=== PATIENT | male | born 1955 | race Caucasian/White ===

== ENCOUNTER 2018-03-14 19:44 | Emergency (ER) | payer OTHER ==
[~2018-03-14 19:44] MED LIST: ACET-1311 PO; ASPI-320 PO; ATOR-24 PO; BISA1SUP4 RE; CLOP1TAB15 PO; GABA-113 PO; HYDCR1CL TOP; INSDGIPEN SC; MOML PO; NVLG SQ; NYST80OI TOP; OXYC-90 PO; POLY335019 PO; SODIENE PR
[2018-03-14 19:50] VITALS: TEMP 36.8; Ht 182.9 cm
[2018-03-14] MEDS ORDERED: INSDGIPEN SC (20:13)
--- NOTE | 2018-03-14 20:43 | DIAGNOSTIC IMAGING REPORT ---
R SHOULDER MIN 2 VIEWS ROUTINE CLINICAL HISTORY: Right shoulder pain status post trauma COMPARISON: None. DISCUSSION: No fractures or dislocations are visualized. Degenerative changes are present within the acromioclavicular joint and glenohumeral joint. There is slight narrowing and humeral acromial distance. This could indicate rotator cuff tear degeneration. IMPRESSION: 1. No acute fractures 2. Degenerative changes Electronically signed by: Herve Pastrana M.D. 03/14/2018 8:42 PM Dictated Date/Time: 03/14/2018 8:41 PM
--- NOTE | 2018-03-14 20:51 | EMERGENCY ROOM VISIT NOTE ---
ED Visit Note First contact with patient: 19:53 Staff note: I have reviewed the Patients chart and have discussed this case with my PA. I generally agree with the ED note and findings.
--- NOTE | 2018-03-14 20:54 | EMERGENCY ROOM VISIT NOTE ---
ED Visit Note First contact with patient: 19:53 CHIEF COMPLAINT: Right shoulder injury HISTORY OF PRESENT ILLNESS: This 62-year-old male presents to ER with chief complaint of right shoulder injury. The patient is a above the knee amputation on the left side. The patient ambulates at home in a chair. He went to the refrigerator to get something out of the freezer and pulled himself up and lost his balance and fell backwards and landed on his right shoulder. The patient did not hit his head. He denies a loss of consciousness. The patient states it hurts to move his arm. He denies any pain radiating down the arm or any numbness and tingling in his fingers. The patient is right-hand dominant. The patient has seen Dr. Rooney in the past for knee replacements. REVIEW OF SYSTEMS: 6 system review was performed and was negative unless stated otherwise in history of present illness. PMH: The patient is healthy; type 2 diabetes not well controlled. 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 Right knee replacement, dyslipidemia SOCIAL HISTORY: Patient admits to tobacco use . PHYSICAL EXAM: Vital Signs: Were reviewed reviewed nurse's notes. GENERAL: 62- year-old white male appears in no acute distress. He is sitting in a wheelchair with his left lower leg amputated. MENTAL alert and oriented 3. RIGHT SHOULDER: The shoulder is slightly swollen but not deformed on inspection. Patient is tender to palpation over the humeral head. The range of motion is limited in all directions because of the pain. There is no tenderness of the distal clavicle. [facility] strength is 5 out of 5 as compared to the left. EMERGENCY DEPARTMENT COURSE: The patient was evaluated. The patient had already taken oxycodone before coming to the emergency room therefore no additional pain medication was given. X-ray of the right shoulder was ordered interpreted by the radiologist and myself. DIAGNOSTICS:R SHOULDER MIN 2 VIEWS ROUTINE CLINICAL HISTORY: Right shoulder pain status post trauma COMPARISON: None. DISCUSSION: No fractures or dislocations are visualized. Degenerative changes are present within the acromioclavicular joint and glenohumeral joint. There is slight narrowing and humeral acromial distance. This could indicate rotator cuff tear degeneration. IMPRESSION: 1. No acute fractures 2. Degenerative changes Electronically signed by: Herve Pastrana M.D. 03/14/2018 8:42 PM The patient was informed of the findings. The patient was independently evaluated by Dr. Johnson who agreed with treatment plan. The patient was placed in an arm sling and discharged home in stable condition. DIAGNOSIS: Right shoulder contusion DISCHARGE INSTRUCTIONS & TREATMENT: Rest the arm in a sling until the pain subsides. Apply ice to the shoulder intermittently and frequently over the next 24 hours. Tylenol and/or ibuprofen as needed for pain. see your own doctor or an orthopedic surgeon if you don't seem to be improving in 1 week. 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 Surgical Problems: (1) History of spinal fusion Permanent Comment: 05/[address] Reeder Status: Resolved Current/Historical Medications Scheduled Aspirin (Aspirin EC Low Dose), 81 MG PO DAILY Atorvastatin (Lipitor), 40 MG PO HS Clopidogrel (Plavix), 75 MG PO DAILY Gabapentin (Neurontin), 300 MG PO BID Insulin Aspart (Novolog), 1 DOSE SQ UD Insulin Glargine (Lantus Solostar), 54 UNITS SC DAILY Scheduled PRN Oxycodone Ir (Roxicodone Ir), 5-10 MG PO Q4H PRN for Severe Pain Allergies Coded Allergies: No Known Allergies (Verified , 03/14/18) Vital Signs Date Time Temp Pulse Resp B/P (MAP) Pulse Ox O2 Delivery O2 Flow Rate FiO2 03/14/18 19:50 36.8 77 18 163/75 94 Room Air Departure Information Referrals Zion Moses M.D. (PCP) Patient Instructions My [facility]
[2018-03-14 21:02] VITALS: BP 160/69; PULSE 78; O2SAT 98
== END 2018-03-14 21:00 | disposition home or self-care (01) ==
LOC: C.EDB 19:46 → C.EDD 21:00
DX: S40.011A Contusion of right shoulder, initial encounter (principal); W07.XXXA Fall from chair, initial encounter; Y92.010 Kitchen of single-family (private) house as the place of occurrence of the external cause; Z89.612 Acquired absence of left leg above knee; Z72.0 Tobacco use; E11.9 Type 2 diabetes mellitus without complications; E78.5 Hyperlipidemia, unspecified; K21.9 Gastro-esophageal reflux disease without esophagitis; Z86.73 Personal history of transient ischemic attack (TIA), and cerebral infarction without residual deficits; Z79.82 Long term (current) use of aspirin; Z79.02 Long term (current) use of antithrombotics/antiplatelets; Z79.4 Long term (current) use of insulin; Z79.899 Other long term (current) drug therapy

== ENCOUNTER 2020-02-25 14:58 | Inpatient (IN) ==
[2020-02-25] MEDS ORDERED: GLUCAGON FOR INJ 1 MG VIAL SQ PRN (15:30)
[2020-02-25] MEDS ORDERED: ALUMINUM/MAGNESIUM SUSP 30 ML UDC PO PRN (15:30)
[2020-02-25] MEDS ORDERED: ONDANSETRON INJ 2 MG/ML 2 ML VIAL IV PRN (15:30)
[2020-02-25] MEDS ORDERED: GLUCOSE 10 TABS/TUBE PO PRN (15:30)
[2020-02-25] MEDS ORDERED: GLUCOSE 40% GEL 15 GM TUBE PO PRN (15:30)
[2020-02-25] MEDS ORDERED: CARBOHYDRATES FOR HYPOGLYCEMIA PO PRN (15:30)
[2020-02-25] MEDS ORDERED: POLYETHYLENE (MIRALAX) 17 GM PACK PO PRN (15:30)
[2020-02-25] MEDS ORDERED: MAGNESIUM HYDROXIDE SUSP 30 ML UDC PO PRN (15:30)
[2020-02-25] MEDS ORDERED: ACETAMINOPHEN 325 MG TAB PO PRN (15:30)
[2020-02-25] MEDS ORDERED: DEXTROSE 50% 50 ML SYRINGE IV PRN (15:30)
[2020-02-25] MEDS ORDERED: PHARMACY GLYCEMIC MGMT CONSULT PRN (15:37)
[2020-02-25 16:48] LABS: Basophils # (auto) 0.05 K/uL (0-0.2); Basophils % (auto) 0.4 %; Eosinophils # (auto) 0.23 K/uL (0-0.5); Hematocrit (blood only) 45.1 % (42-52); Hemoglobin 15.5 g/dL (14.0-18.0); Immature Granulocytes # (auto) 0.04 K/uL (0.00-0.02); Immature Granulocytes % (auto) 0.3 %; Lymphocytes # (auto) 3.63 K/uL (1.2-3.4); Lymphocytes % (auto) 30.9 %; Mean Corpuscular Hemoglobin 32.5 pg (25-34); Mean Corpuscular Hgb Conc 34.4 g/dL (32-36); Mean Corpuscular Volume 94.5 fL (80-100); Mean Platelet Volume 9.7 fL (7.4-10.4); Monocytes # (auto) 0.94 K/uL (0.11-0.59); Neutrophils # (auto) 6.85 K/uL (1.4-6.5); Neutrophils % (auto) 58.4 %; Platelet Count 301 K/uL (130-400); RDW Coefficient of Variation 14.6 % (11.5-14.5); RDW Standard Deviation 50.2 fL (36.4-46.3); Red Blood Count 4.77 M/uL (4.7-6.1); White Blood Count 11.74 K/uL (4.8-10.8)
--- NOTE | 2020-02-25 16:57 | History & Physical Report ---
Date of Service February 25, 2020 Assessment & Plan (1) Right BKA infection: Has had right BKA in the last week of October 2019 John were removed about 3 weeks ago noted to have wound dehiscence Has been under care of wound care since then Has been taking doxycycline for MSSA infection and will be continued Patient is here for irrigation wound VAC placement We will consult wound care provider and wound care nurse (2) Surgical wound, non healing: As above (3) DM type 2 (diabetes mellitus, type 2): Has type 2 diabetes on insulin We will hold oral diabetic medications and continue with SSI Has diabetic complications with neuropathy, retinopathy and is complicated by peripheral vascular disease (4) Diabetic peripheral angiopathy: (5) Peripheral vascular disease: (6) Carotid artery disease: History of CVA without any residual (7) GERD (gastroesophageal reflux disease): Continue PPI (8) Emphysema of lung: Chronic smoker and continues to smoke Has emphysema of the lung No acute exacerbation of COPD We will continue his current medications DVT prophylaxis Heparin subcu CODE STATUS Full Admission and Anticipated Discharge Date Admission Date: February 25, 2020 History of Present Illness Chief Complaint: Nonhealing right BKA stump Primary Care Provider: Zion angelo MD Is a 64 years old obese male with significant past medical history of type 2 diabetes with peripheral neuropathy and peripheral vascular disease, GERD, history of CVA, carotid artery disease, hyperlipidemia has been sent from wound clinic for wound VAC irrigation of the right BKA stump. He underwent right BKA for diabetic neuropathy and peripheral vascular disease and last week of October in [place]. His john were taken out from the wound about 3 weeks ago and following that the wound showed dehiscence and has been under care of wound clinic as an outpatient. The wound has not been healing and today he was sent in to the hospital for application of irrigation with wound VAC to improve the wound healing. He has been on oral doxycycline for wound infection for the last 3 days which will be continued. He denies symptoms of fever, chills, any chest pain and/or palpitation, any abdominal pain, nausea or vomiting, any increasing redness, swelling, tenderness or drainage from the wound. Allergies Allergy/AdvReac Type Severity Reaction Status Date / Time No Known Allergies Allergy Verified 02/25/20 13:42 Home Medications Home Medications Medication Instructions Recorded Confirmed Type Aspirin (Aspirin EC Low Dose) 81 mg PO DAILY #0 07/02/16 02/25/20 History Clopidogrel (Plavix) 75 mg PO DAILY #0 12/30/17 02/25/20 History Insulin Aspart (NOVOLOG) 1 dose SUBCUT UD #0 12/30/17 02/25/20 History Insulin Glargine (Lantus Solostar) 60 unit SC DAILY #0 pen 03/14/18 02/25/20 History collagenase clostridium histo. 250 1 applic TOP DAILY 14 Days #90 gm 02/04/20 02/25/20 Rx unit/gram topical ointment Gabapentin (Neurontin) 300 mg PO TID #0 02/18/20 02/25/20 History doxycycline hyclate 100 mg tablet 100 mg PO bid 14 Days #28 tab 02/22/20 02/25/20 Rx Past Med/Surg History Medical History (Updated 02/25/20 @ 16:52 by Aleksander Gerardo MD) Carotid artery disease S/P right CEA by Dr. Sheppard on 09/14/17. L Occluded carotid artery Diabetic neuropathy Diabetic peripheral angiopathy DM type 2 (diabetes mellitus, type 2) (Chronic) Dyslipidemia (Chronic) Emphysema of lung GERD (gastroesophageal reflux disease) (Chronic) History of CVA (cerebrovascular accident) (Chronic) H/O right basal ganglia stroke in 2011. PAD (peripheral artery disease) Peripheral vascular disease (Chronic) Tobacco dependence (Chronic) Surgical History (Updated 02/25/20 @ 14:28 by Catherine Goodwin PA-C) History of angioplasty of peripheral vessel L LEG left popliteal artery angioplasty and stent as left AT/peroneal/TP trunk angioplasty on 05/10/[address] Sheppard left AKA on 12/19/17 09/27/17 for angioplasty/stent of the left SFA, but noted to have a BK- popliteal occlusion (would need a left fem=>AT bypass). left common femoral endarterectomy with vein patch angioplasty and common femoral artery => anterior tibial artery bypass using non-reversed left great saphenous vein 10/20/2017. R LEG RSFA stent and, angioplasty of PT/peroneal artery 06/06/[address] Mosqueda S/P right TOMMIE/TP-trunk/peroneral/PT angioplasty by Dr. Mosqueda on 10/25/18. 02/2019 again prompted additional intervention He underwent bilateral common & external iliac artery stents (one 7 x 80 mm Everflex stent on each side) and right SFA/pop/TP-trunk angioplasty by Dr. Sheppard 04/03/19. 05/09/20 He underwent balloon angioplasty of right SFA/popliteal/TP-trunk/peroneral arteries and open amputation of the R 5th toe by Dr. Shepprad on 08/10/19. History of femoropopliteal bypass History of right below knee amputation by Dr. Sheppard History of spinal fusion (Resolved) "05/[address] Reeder" Hx of AKA (above knee amputation) L 12/2018 Social History (Updated 02/04/20 @ 14:17 by Joe Roldan RN) Smoking Status: Current every day smoker Tobacco Type: Cigarettes packs per day: 1; Do You Dip or Chew Tobacco: No; Tobacco Cessation Education Requested by Patient: No Hx Alcohol Use: Yes Alcohol type: beer Alcohol Intake Frequency: 2-4 x/Month Hx Substance Use: No Preferred Language: Lithuanian Communication Ability: Effective Solution Lead Required: No Beliefs That Will Affect Care: None marital status: Current Living Situation: Spouse current occupational status: retired Other Information That Helps Us Care for You: No Feels Safe at Home: Yes Safety Concerns: Feels Safe At This Time Review of Systems Review of Systems: All systems reviewed & are unremarkable except as noted in HPI & below Physical Exam Physical Exam: Sitting in a chair without any distress Constitutional: well developed, well nourished and + obese; no acute distress and not ill appearing Eyes: PERRL, conjunctivae normal, anicteric sclerae ENMT: external ear and nose normal, oropharynx normal Neck: trachea midline, no thyromegaly Respiratory: normal respiratory effort; no respiratory distress Auscultation: lungs clear to auscultation bilaterally Cardiovascular: Rate/Rhythm: regular rhythm Heart Sounds: no murmur Extremities: + edema (Trace edema bilaterally) Gastrointestinal (Abdomen): Inspection/Auscultation: abdomen normal to inspection and normal bowel sounds; abdomen not distended Percussion/Palpation: abdomen soft; abdomen nontender Musculoskeletal: Has left AKA without any infection. Right BKA has wound dehiscence for the last 3 weeks or so. Neurologic: Alert, awake and oriented x3 Results & Data Results & Data ([facility]) Vital Signs (Past 12 Hours) Vital Signs Temp Pulse Resp BP Pulse Ox 02/25/20 16:15 36.4 C L 78 16 125/65 94 Code Status & VTE Plan Code Status Full code VTE Prophylaxis Plan VTE Prophylaxis will be ordered: Yes
[2020-02-25 17:00] LABS: Partial Thromboplastin Ratio 1.1; Partial Thromboplastin Time 31.1 Seconds (21.0-31.0); Prothrombin Time 10.8 Seconds (9.0-12.0)
--- NOTE | 2020-02-25 17:03 | XRay Report ---
XR chest 1V portable CLINICAL HISTORY: Atypical chest pain COMPARISON STUDY: 12/30/2017 FINDINGS: The heart is mildly enlarged. There is mild interstitial prominence similar to the prior st udy. There is no overt failure. There is no lobar consolidation. There are no pleural effusions.[ IMPRESSION: No active disease in the chest. ACT 112: Negative or not required by law. Electronically signed by: Herve Pastrana M.D. 02/25/2020 5:02 PM
[2020-02-25 17:08] LABS: Albumin Level 3.1 gm/dl (3.4-5.0); BUN Creatinine Ratio 24.9 (10-20); C Reactive Protein 2.5 mg/dl (0-0.29); Creatinine Clr Calc Pharmacy 83.8 ml/min; Est GFR (African American) 84.3; Est GFR (Non-African American) 72.8; Magnesium 2.1 mg/dl (1.8-2.4); Potassium 4.1 mmol/L (3.5-5.1)
[2020-02-25 17:11] LABS: Albumin Globulin Ratio 0.7 (0.9-2); Bilirubin,Total 0.5 mg/dl (0.2-1); Globulin 4.7 gm/dl (2.5-4.0); Total Protein 7.8 gm/dl (6.4-8.2)
[2020-02-25] MEDS: INSULIN ASPART 100 UNITS/ML 3 ML PEN SC SCH ×2 (17:11→20:39)
[2020-02-25] MEDS: OXYCODONE/ACETAMINOPHEN 5mg/325mg TAB PO PRN ×2 (18:07→22:49)
[2020-02-25] MEDS: DOXYCYCLINE HYCLATE 100 MG CAP PO SCH (20:42)
[2020-02-25] MEDS: GABAPENTIN 300 MG CAP PO SCH (20:42)
[2020-02-25] MEDS ORDERED: INSULIN ASPART 100 UNITS/ML 3 ML PEN SC SCH (21:00)
[2020-02-25] MEDS: HEPARIN SOD 5,000 UNIT/0.5 ML VIAL SQ SCH (21:07)
[2020-02-26] MEDS: OXYCODONE/ACETAMINOPHEN 5mg/325mg TAB PO PRN ×3 (03:18→20:25)
[2020-02-26] MEDS ORDERED: HYDROmorphone INJ 0.5 MG/0.5 ML SYR IV STA ×3 (04:03→12:39)
[2020-02-26] MEDS: HEPARIN SOD 5,000 UNIT/0.5 ML VIAL SQ SCH ×3 (06:24→21:31)
[2020-02-26 07:08] LABS: Estimated Average Glucose 240 mg/dl
[2020-02-26] MEDS: CLOPIDOGREL BISULFATE 75 MG TAB PO SCH (08:03)
[2020-02-26] MEDS: COLLAGENASE OINT 30 GM TUBE TOP SCH (08:04)
[2020-02-26] MEDS: GABAPENTIN 300 MG CAP PO SCH ×3 (08:04→20:25)
[2020-02-26] MEDS: ASPIRIN 81 MG ECTAB PO SCH (08:04)
[2020-02-26] MEDS: DOXYCYCLINE HYCLATE 100 MG CAP PO SCH ×2 (08:04→20:25)
[2020-02-26] MEDS: INSULIN ASPART 100 UNITS/ML 3 ML PEN SC SCH ×4 (08:06→20:27)
[2020-02-26] MEDS ORDERED: INSULIN GLARGINE SOLOSTAR 100 UNITS/ML 3 ML PEN SC SCH ×2 (09:00)
--- NOTE | 2020-02-26 11:18 | Pharmacy Report ---
Glycemic Control Consultation - Date of Service February 26, 2020 - Scope Scope: Glycemic Pharmacist consulted for glycemic control and to write orders per [facility] inpatient glycemic control protocol. - Objective Weight: 99.3 kg Accuchecks BSG (last 24hrs): 02/25/20 02/25/20 02/25/20 16:16 16:38 20:06 Glucose 166 H POC Glucose 153 H 162 H 02/26/20 07:30 Glucose POC Glucose 106 H Laboratory Data (last 24hrs): 02/25/20 16:16 Potassium 4.1 Carbon Dioxide 25 Anion Gap 6.0 Creatinine 1.06 Est Cr Clr Drug Dosing 83.8 HbA1c: Hemoglobin A1c 10.0 % (4.5-5.6) H 02/26/20 06:46 - Recent Pertinent Medications Outpatient Anti-diabetic Regimen: * Lantus 60 units Qam, Novolog scale * A1c = 10 % 02/26/20 Risk Factors for Insulin Resistance: * Diet - Assessment & Plan Assessment & Plan: ASSESSMENT: * 64 year old admitted with possible infection. PMHx significant for type 2 diabetes, peripheral neuropathy, PVD, GERD, CVA, hld. Sent from wound clinic for wound VAC irrigation of the right BKA stump. * Pharmacy consulted for glycemic management. Fasting BSG 106 mg/dL - plan to scale back basal insulin this AM / add novolog scale PLAN FOR INPATIENT GLYCEMIC CONTROL: * Basal insulin * Lantus 40 units daily * Bolus insulin * NovoLog per scale ACHS or Q6hrs while NPO * Goal Range: Low 110 mg/dL - High 140 mg/dL * Correction Factor: 18 mg/dL/unit * Nutritional / Prandial insulin per carb ratio of 1 unit per 6 grams CHO consumed * Please note that the plan above was derived based on current level of insulin resistance and hospital stress. These recommendations are appropriate for inpatient admission only. Plan of care upon discharge will need to be reassessed to avoid potential outpatient hypo/hyperglycemia. Thank you.
[2020-02-26] MEDS ORDERED: HYDROmorphone INJ 0.5 MG/0.5 ML SYR ONE (11:43)
--- NOTE | 2020-02-26 14:56 | Hospitalist Progress Note ---
Date of Service February 26, 2020 Assessment & Plan (1) Right BKA infection: Has had right BKA in the last week of October 2019 John were removed about 3 weeks ago noted to have wound dehiscence Has been under care of wound care since then Has been taking doxycycline for staph aureus MRSA infection since 02/18/2020 and will be continued Patient is here for irrigation wound VAC placement Appreciate wound care provider input and recommendation Irrigation wound VAC has been applied The patient complains of severe pain with the wound VAC in place His pain medications have been increased He may need pain therapy consult if the pain is not controlled with a reasonable dose of pain medications (2) Surgical wound, non healing: As above (3) DM type 2 (diabetes mellitus, type 2): Has type 2 diabetes on insulin We will hold oral diabetic medications and continue with SSI Has diabetic complications with neuropathy, retinopathy and is complicated by peripheral vascular disease Appreciate development educator input and recommendation Hemoglobin A1c is 10.0 on 02/26/2020 (4) Diabetic peripheral angiopathy: (5) Peripheral vascular disease: (6) Carotid artery disease: History of CVA without any residual (7) GERD (gastroesophageal reflux disease): Continue PPI (8) Emphysema of lung: Chronic smoker and continues to smoke Has emphysema of the lung No acute exacerbation of COPD We will continue his current medications DVT prophylaxis Heparin subcu CODE STATUS Full Admission and Anticipated Discharge Date Admission Date: February 25, 2020 Subjective 02/26/2020 The patient was seen and examined in medical floor. He has been complaining of severe pain involving the right BKA stump wound The pain is worse when the wound VAC has been applied and persisted thereafter Denies any other symptoms Review of Systems Review of Systems: All systems reviewed and are unremarkable except as noted below Musculoskeletal: Severe pain at the right BKA stump wound Physical Exam Physical Exam: Sitting in a chair without any distress Constitutional: well developed, well nourished and + obese; no acute distress and not ill appearing Eyes: PERRL, conjunctivae normal, anicteric sclerae ENMT: external ear and nose normal, oropharynx normal Neck: trachea midline, no thyromegaly Respiratory: normal respiratory effort; no respiratory distress Auscultation: lungs clear to auscultation bilaterally Cardiovascular: Rate/Rhythm: regular rhythm Heart Sounds: no murmur Right BKA stump has mild edema Gastrointestinal (Abdomen): Inspection/Auscultation: abdomen normal to inspection and normal bowel sounds; abdomen not distended Percussion/Palpation: abdomen soft; abdomen nontender Results & Data Results & Data ([facility]) Vital Signs (Past 12 Hours) Vital Signs Temp Pulse Resp BP Pulse Ox 02/26/20 12:00 36.8 C 84 18 124/65 94 02/26/20 07:48 36.7 C 78 18 123/72 94 02/26/20 04:13 36.6 C 77 20 127/84 95 Laboratory Results Short CBC 02/25/20 Range/Units 16:16 WBC 11.74 H (4.8-10.8) K/uL Hgb 15.5 (14.0-18.0) g/dL Hct 45.1 (42-52) % Plt Count 301 (130-400) K/uL BMP 02/25/20 16:16 Sodium 135 L Potassium 4.1 Chloride 104 Carbon Dioxide 25 BUN 26 H Creatinine 1.06 Glucose 166 H Calcium 10.0 Liver Function 02/25/20 Range/Units 16:16 Total Bilirubin 0.5 (0.2-1) mg/dl AST 18 (15-37) U/L ALT 25 (12-78) U/L Alkaline Phosphatase 89 (45-117) U/L Albumin 3.1 L (3.4-5.0) gm/dl Medications Administered Current Inpatient Medications Acetaminophen (Tylenol) 650 mg PO Q4H PRN PRN Reason: Pain or Fever Stop: 03/26/20 15:29 Al Hydrox/Mg Hydrox/Simethicone (Maalox) 15 ml PO Q4H PRN PRN Reason: Dyspepsia Stop: 03/26/20 15:29 Aspirin (Ecotrin Ectab) 81 mg PO DAILY VANDANA Stop: 03/27/20 08:59 Last Admin: 02/26/20 08:04 Dose: Not Given Documented by: Clopidogrel Bisulfate (Plavix) 75 mg PO DAILY [facility] Stop: 03/27/20 08:59 Last Admin: 02/26/20 08:03 Dose: 75 mg Documented by: Collagenase (Santyl) 1 appln TOP DAILY VANDANA Stop: 03/27/20 08:59 Last Admin: 02/26/20 08:04 Dose: 1 appln Documented by: Dextrose (Dextrose 50%) 25 - 50 ml IV UD PRN; Protocol PRN Reason: Hypoglycemia Protocol Stop: 03/26/20 15:29 Doxycycline Hyclate (Vibramycin) 100 mg PO BID [facility] Stop: 03/03/20 20:59 Last Admin: 02/26/20 08:04 Dose: 100 mg Documented by: Gabapentin (Neurontin) 300 mg PO TID [facility] Stop: 03/26/20 20:59 Last Admin: 02/26/20 13:46 Dose: 300 mg Documented by: Glucagon (Glucagen) 1 mg SQ UD PRN; Protocol PRN Reason: Hypoglycemia Protocol Stop: 03/26/20 15:29 Glucose (Dex4 Glucose) 4 - 8 tabs PO UD PRN; Protocol PRN Reason: Hypoglycemia Protocol Stop: 03/26/20 15:29 Glucose (Glucose 40%) 15 - 30 gm PO UD PRN; Protocol PRN Reason: Hypoglycemia Protocol Stop: 03/26/20 15:29 Heparin Sodium (Porcine) (Heparin Sodium (Porcine)) 5,000 units SQ Q8 [facility] Stop: 03/26/20 21:59 Last Admin: 02/26/20 13:46 Dose: 5,000 units Documented by: Hydromorphone HCl (Dilaudid) 1 mg IV Q4H PRN PRN Reason: Moderate Pain Stop: 03/11/20 13:57 Insulin Aspart (Novolog Flexpen) 0 units SC [facility] Stop: 03/26/20 16:29 Last Admin: 02/26/20 12:08 Dose: 9 units Documented by: Insulin Glargine (Lantus Solostar Pen) 0 units SC [facility]; Protocol Stop: 03/27/20 08:59 Last Admin: 02/26/20 08:50 Dose: 40 units Documented by: Magnesium Hydroxide (Milk Of Magnesia) 30 ml PO Q12H PRN PRN Reason: Constipation Stop: 03/26/20 15:29 Miscellaneous (Carbohydrates For Hypoglycemia) 15 - 30 gm PO UD PRN PRN Reason: Hypoglycemia Protocol Stop: 03/26/20 15:29 Miscellaneous Information (Consult Glycemic Management Pharmacy) 1 ea N/A UD PRN; Protocol PRN Reason: Consult Stop: 03/26/20 15:36 Ondansetron HCl (Zofran) 4 mg IV Q6H PRN PRN Reason: Nausea Stop: 03/26/20 15:29 Oxycodone/Acetaminophen (Percocet 5mg/325mg) 2 tab PO Q6H PRN PRN Reason: Pain Stop: 03/10/20 17:53 Polyethylene Glycol (Miralax Powder Packet) 17 gm PO DAILY PRN PRN Reason: Constipation Stop: 03/26/20 15:29
--- NOTE | 2020-02-26 15:30 | Wound Consultation ---
Date of Consultation February 26, 2020 Assessment & Plan (1) Right BKA infection: Patient with nonhealing right BKA wound. No debridement was done. We will apply irrigating wound VAC. This will be changed after 4 days. Continue with antibiotics. Recommend scheduled pain meds as patient will likely be unable to tolerate wound VAC otherwise. Low threshold for repeat imaging to rule out spread of infection. Thank you for limited to spent in the care of this patient. Please call with any questions. (2) Surgical wound, non healing: History of Present Illness Reason for Consultation: Right BKA infection Attending Physician: Aleksander Gerardo MD History of Present Illness This is a 64-year-old male with a history of type 2 diabetes, CVA, GERD, dyslipidemia, sepsis and tobacco abuse who is being treated the wound clinic for nonhealing right BKA stump. Patient was sent to the hospital yesterday from the wound clinic due to the increase pain and possible worsening infection. We made little outpatient progress and patient likely would benefit from an irrigating wound VAC and possible IV antibiotics in addition to pain control. Allergies Allergy/AdvReac Type Severity Reaction Status Date / Time No Known Allergies Allergy Verified 02/25/20 13:42 Home Medications Home Medications Medication Instructions Recorded Confirmed Type Aspirin (Aspirin EC Low Dose) 81 mg PO DAILY #0 07/02/16 02/25/20 History Clopidogrel (Plavix) 75 mg PO DAILY #0 12/30/17 02/25/20 History Insulin Aspart (NOVOLOG) 1 dose SUBCUT UD #0 12/30/17 02/25/20 History Insulin Glargine (Lantus Solostar) 60 unit SC DAILY #0 pen 03/14/18 02/25/20 History collagenase clostridium histo. 250 1 applic TOP DAILY 14 Days #90 gm 02/04/20 02/25/20 Rx unit/gram topical ointment Gabapentin (Neurontin) 300 mg PO TID #0 02/18/20 02/25/20 History doxycycline hyclate 100 mg tablet 100 mg PO bid 14 Days #28 tab 02/22/20 02/25/20 Rx Patient History Medical History Carotid artery disease S/P right CEA by Dr. Sheppard on 09/14/17. L Occluded carotid artery Diabetic neuropathy Diabetic peripheral angiopathy DM type 2 (diabetes mellitus, type 2) (Chronic) Dyslipidemia (Chronic) Emphysema of lung GERD (gastroesophageal reflux disease) (Chronic) History of CVA (cerebrovascular accident) (Chronic) H/O right basal ganglia stroke in 2012. PAD (peripheral artery disease) Peripheral vascular disease (Chronic) Tobacco dependence (Chronic) Surgical History History of angioplasty of peripheral vessel L LEG left popliteal artery angioplasty and stent as left AT/peroneal/TP trunk angioplasty on 05/10/[address] Sheppard left AKA on 12/19/17 09/27/17 for angioplasty/stent of the left SFA, but noted to have a BK- popliteal occlusion (would need a left fem=>AT bypass). left common femoral endarterectomy with vein patch angioplasty and common femoral artery => anterior tibial artery bypass using non-reversed left great saphenous vein 10/20/2017. R LEG RSFA stent and, angioplasty of PT/peroneal artery 06/06/[address] Mosqueda S/P right TOMMIE/TP-trunk/peroneral/PT angioplasty by Dr. Mosqueda on 10/25/18. 02/2019 again prompted additional intervention He underwent bilateral common & external iliac artery stents (one 7 x 80 mm Everflex stent on each side) and right SFA/pop/TP-trunk angioplasty by Dr. Sheppard 04/03/19. 05/09/20 He underwent balloon angioplasty of right SFA/popliteal/TP-trunk/peroneral arteries and open amputation of the R 5th toe by Dr. Sheppard on 08/10/19. History of femoropopliteal bypass History of right below knee amputation by Dr. Sheppard History of spinal fusion (Resolved) "05/[address] Reeder" Hx of AKA (above knee amputation) L 12/2018 Social History Smoking Status: Current every day smoker Tobacco Type: Cigarettes packs per day: 1; Do You Dip or Chew Tobacco: No; Tobacco Cessation Education Requested by Patient: No Hx Alcohol Use: Yes Alcohol type: beer Alcohol Intake Frequency: 2-4 x/Month Hx Substance Use: No Preferred Language: Italian Communication Ability: Effective Diamond Cleaner Required: No Beliefs That Will Affect Care: None marital status: Current Living Situation: Spouse current occupational status: retired Other Information That Helps Us Care for You: No Feels Safe at Home: Yes Safety Concerns: Feels Safe At This Time Review of Systems Review of Systems: All systems reviewed & are unremarkable except as noted in HPI & below Physical Exam Physical Exam: Temp Pulse Resp BP Pulse Ox 36.8 C 78 18 124/65 94 02/26/20 12:00 02/26/20 15:02 02/26/20 12:00 02/26/20 12:00 02/26/20 12:00 Constitutional: WD/WN, vitals as above Eyes: PERRL, conjunctivae normal, anicteric sclerae Skin: Wound measuring as recorded in nursing documentation. Wounds are covered with fibrin and slough. Periwound is erythematous. Wound beds are very tender to palpation. Neurologic: awake; not confused Psychiatric: A+Ox3, euthymic affect Results & Data Vital Signs (Past 12 Hours) Vital Signs Temp Pulse Pulse Resp BP Pulse Ox 02/26/20 15:02 78 02/26/20 12:00 36.8 C 84 18 124/65 94 02/26/20 07:48 36.7 C 78 18 123/72 94 02/26/20 04:13 36.6 C 77 20 127/84 95 Laboratory Results 02/26/20 02/26/20 02/26/20 Range/Units 11:55 07:30 06:46 WBC (4.8-10.8) K/uL RBC (4.7-6.1) M/uL Hgb (14.0-18.0) g/dL Hct (42-52) % MCV (80-100) fL MCH (25-34) pg MCHC (32-36) g/dL RDW Std Deviation (36.4-46.3) fL RDW Coeff of Martin (11.5-14.5) % Plt Count (130-400) K/uL MPV (7.4-10.4) fL Immature Gran % (Auto) % Neut % (Auto) % Lymph % (Auto) % Hall % (Auto) % Eos % (Auto) % Baso % (Auto) % Neut # (Auto) (1.4-6.5) K/uL Lymph # (Auto) (1.2-3.4) K/uL Hall # (Auto) (0.11-0.59) K/uL Eos # (Auto) (0-0.5) K/uL Baso # (Auto) (0-0.2) K/uL Immature Gran # (Auto) (0.00-0.02) K/uL ESR (0-14) mm/hr PT (9.0-12.0) Seconds INR (0.9-1.1) APTT (21.0-31.0) Seconds PTT Ratio Sodium (136-145) mmol/L Potassium (3.5-5.1) mmol/L Chloride (98-107) mmol/L Carbon Dioxide (21-32) mmol/L Anion Gap (3-11) BUN (7-18) mg/dl Creatinine (0.6-1.4) mg/dl Est Cr Clr Drug Dosing ml/min Est GFR ( Amer) Est GFR (Non-Af Amer) BUN/Creatinine Ratio (10-20) Glucose (70-99) mg/dl POC Glucose 106 H 106 H (70-99) mg/dl Estimat Average Glucose 240 mg/dl Hemoglobin A1c 10.0 H (4.5-5.6) % Lactate (0.4-2.0) mmol/L Calcium (8.5-10.1) mg/dl Magnesium (1.8-2.4) mg/dl Total Bilirubin (0.2-1) mg/dl AST (15-37) U/L ALT (12-78) U/L Alkaline Phosphatase (45-117) U/L C-Reactive Protein (0-0.29) mg/dl Total Protein (6.4-8.2) gm/dl Albumin (3.4-5.0) gm/dl Globulin (2.5-4.0) gm/dl Albumin/Globulin Ratio (0.9-2) 02/25/20 02/25/20 02/25/20 Range/Units 20:06 16:38 16:36 WBC (4.8-10.8) K/uL RBC (4.7-6.1) M/uL Hgb (14.0-18.0) g/dL Hct (42-52) % MCV (80-100) fL MCH (25-34) pg MCHC (32-36) g/dL RDW Std Deviation (36.4-46.3) fL RDW Coeff of Martin (11.5-14.5) % Plt Count (130-400) K/uL MPV (7.4-10.4) fL Immature Gran % (Auto) % Neut % (Auto) % Lymph % (Auto) % Hall % (Auto) % Eos % (Auto) % Baso % (Auto) % Neut # (Auto) (1.4-6.5) K/uL Lymph # (Auto) (1.2-3.4) K/uL Hall # (Auto) (0.11-0.59) K/uL Eos # (Auto) (0-0.5) K/uL Baso # (Auto) (0-0.2) K/uL Immature Gran # (Auto) (0.00-0.02) K/uL ESR (0-14) mm/hr PT (9.0-12.0) Seconds INR (0.9-1.1) APTT (21.0-31.0) Seconds PTT Ratio Sodium (136-145) mmol/L Potassium (3.5-5.1) mmol/L Chloride (98-107) mmol/L Carbon Dioxide (21-32) mmol/L Anion Gap (3-11) BUN (7-18) mg/dl Creatinine (0.6-1.4) mg/dl Est Cr Clr Drug Dosing ml/min Est GFR ( Amer) Est GFR (Non-Af Amer) BUN/Creatinine Ratio (10-20) Glucose (70-99) mg/dl POC Glucose 162 H 153 H (70-99) mg/dl Estimat Average Glucose mg/dl Hemoglobin A1c (4.5-5.6) % Lactate 1.3 (0.4-2.0) mmol/L Calcium (8.5-10.1) mg/dl Magnesium (1.8-2.4) mg/dl Total Bilirubin (0.2-1) mg/dl AST (15-37) U/L ALT (12-78) U/L Alkaline Phosphatase (45-117) U/L C-Reactive Protein (0-0.29) mg/dl Total Protein (6.4-8.2) gm/dl Albumin (3.4-5.0) gm/dl Globulin (2.5-4.0) gm/dl Albumin/Globulin Ratio (0.9-2) 02/25/20 02/25/20 02/25/20 Range/Units 16:16 16:16 16:16 WBC (4.8-10.8) K/uL RBC (4.7-6.1) M/uL Hgb (14.0-18.0) g/dL Hct (42-52) % MCV (80-100) fL MCH (25-34) pg MCHC (32-36) g/dL RDW Std Deviation (36.4-46.3) fL RDW Coeff of Martin (11.5-14.5) % Plt Count (130-400) K/uL MPV (7.4-10.4) fL Immature Gran % (Auto) % Neut % (Auto) % Lymph % (Auto) % Hall % (Auto) % Eos % (Auto) % Baso % (Auto) % Neut # (Auto) (1.4-6.5) K/uL Lymph # (Auto) (1.2-3.4) K/uL Hall # (Auto) (0.11-0.59) K/uL Eos # (Auto) (0-0.5) K/uL Baso # (Auto) (0-0.2) K/uL Immature Gran # (Auto) (0.00-0.02) K/uL ESR 52 H (0-14) mm/hr PT 10.8 (9.0-12.0) Seconds INR 1.0 (0.9-1.1) APTT 31.1 H (21.0-31.0) Seconds PTT Ratio 1.1 Sodium 135 L (136-145) mmol/L Potassium 4.1 (3.5-5.1) mmol/L Chloride 104 (98-107) mmol/L Carbon Dioxide 25 (21-32) mmol/L Anion Gap 6.0 (3-11) BUN 26 H (7-18) mg/dl Creatinine 1.06 (0.6-1.4) mg/dl Est Cr Clr Drug Dosing 83.8 ml/min Est GFR ( Amer) 84.3 Est GFR (Non-Af Amer) 72.8 BUN/Creatinine Ratio 24.9 H (10-20) Glucose 166 H (70-99) mg/dl POC Glucose (70-99) mg/dl Estimat Average Glucose mg/dl Hemoglobin A1c (4.5-5.6) % Lactate (0.4-2.0) mmol/L Calcium 10.0 (8.5-10.1) mg/dl Magnesium 2.1 (1.8-2.4) mg/dl Total Bilirubin 0.5 (0.2-1) mg/dl AST 18 (15-37) U/L ALT 25 (12-78) U/L Alkaline Phosphatase 89 (45-117) U/L C-Reactive Protein 2.50 H (0-0.29) mg/dl Total Protein 7.8 (6.4-8.2) gm/dl Albumin 3.1 L (3.4-5.0) gm/dl Globulin 4.7 H (2.5-4.0) gm/dl Albumin/Globulin Ratio 0.7 L (0.9-2) 02/25/20 Range/Units 16:16 WBC 11.74 H (4.8-10.8) K/uL RBC 4.77 (4.7-6.1) M/uL Hgb 15.5 (14.0-18.0) g/dL Hct 45.1 (42-52) % MCV 94.5 (80-100) fL MCH 32.5 (25-34) pg MCHC 34.4 (32-36) g/dL RDW Std Deviation 50.2 H (36.4-46.3) fL RDW Coeff of Martin 14.6 H (11.5-14.5) % Plt Count 301 (130-400) K/uL MPV 9.7 (7.4-10.4) fL Immature Gran % (Auto) 0.3 % Neut % (Auto) 58.4 % Lymph % (Auto) 30.9 % Hall % (Auto) 8.0 % Eos % (Auto) 2.0 % Baso % (Auto) 0.4 % Neut # (Auto) 6.85 H (1.4-6.5) K/uL Lymph # (Auto) 3.63 H (1.2-3.4) K/uL Hall # (Auto) 0.94 H (0.11-0.59) K/uL Eos # (Auto) 0.23 (0-0.5) K/uL Baso # (Auto) 0.05 (0-0.2) K/uL Immature Gran # (Auto) 0.04 H (0.00-0.02) K/uL ESR (0-14) mm/hr PT (9.0-12.0) Seconds INR (0.9-1.1) APTT (21.0-31.0) Seconds PTT Ratio Sodium (136-145) mmol/L Potassium (3.5-5.1) mmol/L Chloride (98-107) mmol/L Carbon Dioxide (21-32) mmol/L Anion Gap (3-11) BUN (7-18) mg/dl Creatinine (0.6-1.4) mg/dl Est Cr Clr Drug Dosing ml/min Est GFR ( Amer) Est GFR (Non-Af Amer) BUN/Creatinine Ratio (10-20) Glucose (70-99) mg/dl POC Glucose (70-99) mg/dl Estimat Average Glucose mg/dl Hemoglobin A1c (4.5-5.6) % Lactate (0.4-2.0) mmol/L Calcium (8.5-10.1) mg/dl Magnesium (1.8-2.4) mg/dl Total Bilirubin (0.2-1) mg/dl AST (15-37) U/L ALT (12-78) U/L Alkaline Phosphatase (45-117) U/L C-Reactive Protein (0-0.29) mg/dl Total Protein (6.4-8.2) gm/dl Albumin (3.4-5.0) gm/dl Globulin (2.5-4.0) gm/dl Albumin/Globulin Ratio (0.9-2) PG Care Time/CCT Total # of Minutes Spent Total Time Spent with Patient: Total time spent is greater than 50% in coordination of care (as documented) at patient's floor/unit and/or counseling patient: Coding Level of Care Code 19497 Inpt Consult Level 3 Diagnoses 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 Surgical wound, non healing T81.89XA
[2020-02-26] MEDS: HYDROmorphone INJ 1 MG/ML SYRINGE IV PRN ×2 (16:22→23:28)
[2020-02-27] MEDS: HEPARIN SOD 5,000 UNIT/0.5 ML VIAL SQ SCH ×3 (05:30→21:30)
[2020-02-27] MEDS: HYDROmorphone INJ 1 MG/ML SYRINGE IV PRN ×3 (07:12→23:54)
[2020-02-27] MEDS: GABAPENTIN 300 MG CAP PO SCH ×3 (08:39→21:28)
[2020-02-27] MEDS: DOXYCYCLINE HYCLATE 100 MG CAP PO SCH ×2 (08:39→21:29)
[2020-02-27] MEDS: ASPIRIN 81 MG ECTAB PO SCH (08:39)
[2020-02-27] MEDS: CLOPIDOGREL BISULFATE 75 MG TAB PO SCH (08:40)
[2020-02-27] MEDS: OXYCODONE/ACETAMINOPHEN 5mg/325mg TAB PO PRN ×2 (08:45→19:12)
[2020-02-27] MEDS: INSULIN ASPART 100 UNITS/ML 3 ML PEN SC SCH ×4 (08:45→21:29)
[2020-02-27] MEDS: COLLAGENASE OINT 30 GM TUBE TOP SCH (09:00)
[2020-02-27] MEDS: INSULIN GLARGINE SOLOSTAR 100 UNITS/ML 3 ML PEN SC SCH (12:41)
--- NOTE | 2020-02-27 13:53 | Pharmacy Report ---
Pharmacy Glycemic Short Note 2 - Date of Service February 27, 2020 - Glycemic Short BSG Results (Last 24 hours): 02/26/20 02/26/20 02/27/20 16:52 20:23 07:25 POC Glucose 73 91 72 02/27/20 11:41 POC Glucose 133 H ASSESSMENT: 02/26 * Patient received total of 62 units of insulin this AM, of which 40 were basal insulin * Fasting BSG 72 mg/dL - held AM basal, restarted at lunch - decreased dosing due to lower fasting and limited po intake * Loosened CF/CR as BSGs trending down yesterday PLAN FOR INPATIENT GLYCEMIC CONTROL: * Basal insulin - decrease * Lantus 20 units daily * Bolus insulin * NovoLog per scale ACHS or Q6hrs while NPO * Goal Range: Low 110 mg/dL - High 140 mg/dL * Correction Factor: 25 mg/dL/unit * Nutritional / Prandial insulin per carb ratio of 1 unit per 9 grams CHO consumed PLAN FOR DISCHARGE: * A1C elevated at 10% on admission * DM educator in to also see patient. Confirmed insulin dosing with patient. Patient reports SMBG 3-4x /day with BSGs ranging from 110s-160s and occasionally over 200 mg/dL. DM educator suggested CGM to patient. Many factors can affect A1c and alter level making inaccurate. * During hospital stay BSGs have been well controlled and insulin needs actually are less. Would be reasonable to continue home diabetic regimen as long as patient continues with SMBG and follows up with provider if BSGs out of range.
--- NOTE | 2020-02-27 15:36 | Hospitalist Progress Note ---
Date of Service February 27, 2020 Assessment & Plan (1) Right BKA infection: Has had right BKA in the last week of October 2019 John were removed about 3 weeks ago noted to have wound dehiscence Has been under care of wound care since then Has been taking doxycycline for staph aureus MRSA infection since 02/18/2020 and will be continued Patient is here for irrigation wound VAC placement Appreciate wound care provider input and recommendation Irrigation wound VAC has been applied The patient complained of severe pain with the wound VAC in place, now better controlled His pain medications have been increased (2) Surgical wound, non healing: As above (3) DM type 2 (diabetes mellitus, type 2): Has type 2 diabetes on insulin We will hold oral diabetic medications and continue with SSI Has diabetic complications with neuropathy, retinopathy and is complicated by peripheral vascular disease Appreciate cosmetology educator input and recommendation Hemoglobin A1c is 10.0 on 02/26/2020, however blood sugar level while in the hospital acceptable Likely no changes on discharge regarding his diabetic regimen, close follow-up with PCP (4) Diabetic peripheral angiopathy: (5) Peripheral vascular disease: (6) Carotid artery disease: History of CVA without any residual (7) GERD (gastroesophageal reflux disease): Continue PPI (8) Emphysema of lung: Chronic smoker and continues to smoke Has emphysema of the lung No acute exacerbation of COPD We will continue his current medications Will provide nicotine patch DVT prophylaxis Heparin subcu CODE STATUS Full Admission and Anticipated Discharge Date Admission Date: February 25, 2020 Subjective Patient is sitting up in bed, in no acute distress, previously he has been complaining of severe pain involving the right BKA stump wound The pain is worse when the wound VAC has been applied and persisted thereafter Denies any other symptoms Patient denies any fevers, chills, chest pain, shortness of breath, abdominal pain, nausea or vomiting. Says that he eats well. Patient seen by healthcare educator, blood sugar levels in the hospital are acceptable, A1c is however elevated, and will need to be monitored. Review of Systems Review of Systems: All systems reviewed & are unremarkable except as noted in HPI & below All systems reviewed and are unremarkable except as noted below Constitutional: no fever and no chills Respiratory: no cough and no dyspnea Cardiovascular: no chest pain and no palpitations Gastrointestinal: no abdominal pain and no vomiting Physical Exam Physical Exam: Physical Exam: Sitting in a chair without any distress Constitutional: well developed, well nourished and + obese; no acute distress and not ill appearing Eyes: PERRL, conjunctivae normal, anicteric sclerae ENMT: external ear and nose normal, oropharynx normal Neck: trachea midline, no thyromegaly Respiratory: normal respiratory effort; no respiratory distress Auscultation: lungs clear to auscultation bilaterally, no wheezing, rhonchi or crackles noted Cardiovascular: Rate/Rhythm: regular rhythm Heart Sounds: no murmur Right BKA stump with irrigating wound VAC placed Gastrointestinal (Abdomen): Inspection/Auscultation: abdomen normal to inspection and normal bowel sounds; abdomen not distended Percussion/Palpation: abdomen soft; abdomen nontender Results & Data Results & Data ([facility]) Vital Signs (Past 12 Hours) Vital Signs Temp Pulse Pulse Resp BP BP Pulse Ox 02/27/20 11:36 37.0 C 72 18 138/72 96 02/27/20 07:03 36.7 C 75 19 143/73 H 93 02/27/20 07:00 78 02/27/20 04:57 36.8 C 79 18 134/76 93 Laboratory Results 02/27/20 02/27/20 02/26/20 Range/Units 11:41 07:25 20:23 POC Glucose 133 H 72 91 (70-99) mg/dl 02/26/20 Range/Units 16:52 POC Glucose 73 (70-99) mg/dl Medications Administered Current Inpatient Medications Acetaminophen (Tylenol) 650 mg PO Q4H PRN PRN Reason: Pain or Fever Stop: 03/26/20 15:29 Al Hydrox/Mg Hydrox/Simethicone (Maalox) 15 ml PO Q4H PRN PRN Reason: Dyspepsia Stop: 03/26/20 15:29 Aspirin (Ecotrin Ectab) 81 mg PO DAILY [facility] Stop: 03/27/20 08:59 Last Admin: 02/27/20 08:39 Dose: 81 mg Documented by: Clopidogrel Bisulfate (Plavix) 75 mg PO DAILY [facility] Stop: 03/27/20 08:59 Last Admin: 02/27/20 08:40 Dose: 75 mg Documented by: Dextrose (Dextrose 50%) 25 - 50 ml IV UD PRN; Protocol PRN Reason: Hypoglycemia Protocol Stop: 03/26/20 15:29 Doxycycline Hyclate (Vibramycin) 100 mg PO BID [facility] Stop: 03/03/20 20:59 Last Admin: 02/27/20 08:39 Dose: 100 mg Documented by: Gabapentin (Neurontin) 300 mg PO TID [facility] Stop: 03/26/20 20:59 Last Admin: 02/27/20 14:25 Dose: 300 mg Documented by: Glucagon (Glucagen) 1 mg SQ UD PRN; Protocol PRN Reason: Hypoglycemia Protocol Stop: 03/26/20 15:29 Glucose (Dex4 Glucose) 4 - 8 tabs PO UD PRN; Protocol PRN Reason: Hypoglycemia Protocol Stop: 03/26/20 15:29 Glucose (Glucose 40%) 15 - 30 gm PO UD PRN; Protocol PRN Reason: Hypoglycemia Protocol Stop: 03/26/20 15:29 Heparin Sodium (Porcine) (Heparin Sodium (Porcine)) 5,000 units SQ Q8 [facility] Stop: 03/26/20 21:59 Last Admin: 02/27/20 14:25 Dose: 5,000 units Documented by: Hydromorphone HCl (Hydromorphone Inj 1 Mg/Ml Syringe) 1 mg IV Q4H PRN PRN Reason: Moderate Pain Stop: 03/11/20 13:57 Last Admin: 02/27/20 07:12 Dose: 1 mg Documented by: Insulin Aspart (Insulin Aspart 100 Units/Ml 3 Ml Pen) 0 units SC ACHS [facility] Stop: 03/26/20 16:29 Last Admin: 02/27/20 11:59 Dose: 6 units Documented by: Insulin Glargine (Insulin Glargine Solostar 100 Units/Ml 3 Ml Pen) 20 units SC [facility]; Protocol Stop: 03/28/20 12:44 Last Admin: 02/27/20 12:41 Dose: 20 units Documented by: Magnesium Hydroxide (Milk Of Magnesia) 30 ml PO Q12H PRN PRN Reason: Constipation Stop: 03/26/20 15:29 Miscellaneous (Carbohydrates For Hypoglycemia) 15 - 30 gm PO UD PRN PRN Reason: Hypoglycemia Protocol Stop: 03/26/20 15:29 Miscellaneous (Remove Nicoderm Patch) 1 ea N/A DAILY@[id number] [facility] Stop: 03/29/20 08:58 Miscellaneous Information (Consult Glycemic Management Pharmacy) 1 ea N/A UD PRN; Protocol PRN Reason: Consult Stop: 03/26/20 15:36 Nicotine (Nicotine 14 Mg/24 Hr Patch) 14 mg TD QAM VANDANA Stop: 03/28/20 15:44 Ondansetron HCl (Zofran) 4 mg IV Q6H PRN PRN Reason: Nausea Stop: 03/26/20 15:29 Oxycodone/Acetaminophen (Oxycodone/Acetaminophen 5mg/325mg Tab) 2 tab PO Q6H PRN PRN Reason: Pain Stop: 03/10/20 17:53 Last Admin: 02/27/20 08:45 Dose: 2 tab Documented by: Polyethylene Glycol (Miralax Powder Packet) 17 gm PO DAILY PRN PRN Reason: Constipation Stop: 03/26/20 15:29
[2020-02-27] MEDS: NICOTINE 14 MG/24 HR PATCH TD SCH (18:19)
--- NOTE | 2020-02-27 23:47 | Electrocardiogram Report ---
Test Reason : Blood Pressure : / mmHG Vent. Rate : 074 BPM Atrial Rate : 074 BPM P-R Int : 220 ms QRS Dur : 100 ms QT Int : 372 ms P-R-T Axes : 059 052 136 degrees QTc Int : 412 ms Sinus rhythm with 1st degree A-V block Abnormal ECG When compared with ECG of 30-DEC-2017 16:43, Vent. rate has decreased BY 43 BPM QRS duration has increased T wave inversion now evident in Lateral leads Confirmed by Elmer Fairchild ([id number]) on 02/27/2020 11:46:58 PM Referred By: Ingrid Teran Confirmed By:Elmer Fairchild
[2020-02-28] MEDS: HEPARIN SOD 5,000 UNIT/0.5 ML VIAL SQ SCH ×3 (05:03→21:34)
[2020-02-28] MEDS: OXYCODONE/ACETAMINOPHEN 5mg/325mg TAB PO PRN ×2 (05:03→20:31)
[2020-02-28 07:11] LABS: Hematocrit (blood only) 41.1 % (42-52); Mean Corpuscular Hemoglobin 32.4 pg (25-34); Mean Corpuscular Hgb Conc 34.1 g/dL (32-36); Mean Corpuscular Volume 95.1 fL (80-100); Mean Platelet Volume 9.5 fL (7.4-10.4); Platelet Count 242 K/uL (130-400); RDW Coefficient of Variation 14.6 % (11.5-14.5); RDW Standard Deviation 50.7 fL (36.4-46.3); Red Blood Count 4.32 M/uL (4.7-6.1); White Blood Count 10.98 K/uL (4.8-10.8)
[2020-02-28 07:47] LABS: BUN Creatinine Ratio 19.2 (10-20); Calcium 8.7 mg/dl (8.5-10.1); Creatinine Clr Calc Pharmacy 87.1 ml/min; Est GFR (African American) 89.4; Est GFR (Non-African American) 77.1; Magnesium 2.2 mg/dl (1.8-2.4); Phosphorus 2.9 mg/dl (2.5-4.9); Potassium 3.9 mmol/L (3.5-5.1)
[2020-02-28] MEDS: GABAPENTIN 300 MG CAP PO SCH ×3 (08:23→21:34)
[2020-02-28] MEDS: DOXYCYCLINE HYCLATE 100 MG CAP PO SCH (08:23)
[2020-02-28] MEDS: ASPIRIN 81 MG ECTAB PO SCH (08:23)
[2020-02-28] MEDS: NICOTINE 14 MG/24 HR PATCH TD SCH (08:24)
[2020-02-28] MEDS: CLOPIDOGREL BISULFATE 75 MG TAB PO SCH (08:25)
[2020-02-28] MEDS: INSULIN GLARGINE SOLOSTAR 100 UNITS/ML 3 ML PEN SC SCH (08:30)
[2020-02-28] MEDS: INSULIN ASPART 100 UNITS/ML 3 ML PEN SC SCH ×4 (08:31→21:35)
[2020-02-28] MEDS ORDERED: DOXYCYCLINE HYCLATE 100 MG CAP PO SCH (09:56)
--- NOTE | 2020-02-28 10:00 | Hospitalist Progress Note ---
Date of Service February 28, 2020 Assessment & Plan (1) Right BKA infection: Has had right BKA in the last week of October 2019 John were removed about 3 weeks ago noted to have wound dehiscence Has been under care of wound care since then Has been taking doxycycline for staph aureus MRSA infection since 02/18/2020 and this was continued Patient is here for irrigation wound VAC placement Appreciate wound care provider input and recommendation Irrigation wound VAC has been applied The patient complained of severe pain with the wound VAC in place, now better controlled His pain medications have been increased (2) Surgical wound, non healing: As above (3) DM type 2 (diabetes mellitus, type 2): Has type 2 diabetes on insulin We will hold oral diabetic medications and continue with SSI Has diabetic complications with neuropathy, retinopathy and is complicated by peripheral vascular disease Appreciate clinical trial educator input and recommendation Hemoglobin A1c is 10.0 on 02/26/2020, however blood sugar level while in the hospital acceptable Likely no changes on discharge regarding his diabetic regimen, close follow-up with PCP (4) Diabetic peripheral angiopathy: (5) Peripheral vascular disease: (6) Carotid artery disease: History of CVA without any residual (7) GERD (gastroesophageal reflux disease): Continue PPI (8) Emphysema of lung: Chronic smoker and continues to smoke Has emphysema of the lung No acute exacerbation of COPD We will continue his current medications Will provide nicotine patch DVT prophylaxis Heparin subcu CODE STATUS Full Admission and Anticipated Discharge Date Admission Date: February 25, 2020 Subjective Patient is sitting up in bed, in no acute distress, previously he has been complaining of severe pain involving the right BKA stump wound. Now pain seems to be well controlled. Patient denies any fevers, chills, chest pain, shortness of breath, abdominal pain, nausea or vomiting. Says that he eats well. Patient seen by clinical trial educator, blood sugar levels in the hospital are acceptable, A1c is however elevated, and will need to be monitored. Smoking cessation counseling, nicotine patch started yesterday. Review of Systems Review of Systems: All systems reviewed & are unremarkable except as noted in HPI & below Constitutional: no fever and no chills Respiratory: no cough and no dyspnea Cardiovascular: no chest pain and no palpitations Gastrointestinal: no abdominal pain, no nausea and no vomiting Physical Exam Physical Exam: Physical Exam: Sitting in a chair without any distress Constitutional: well developed, well nourished and + obese; no acute distress and not ill appearing Eyes: PERRL, conjunctivae normal, anicteric sclerae ENMT: external ear and nose normal, oropharynx normal Neck: trachea midline, no thyromegaly Respiratory: normal respiratory effort; no respiratory distress Auscultation: lungs clear to auscultation bilaterally, no wheezing, rhonchi or crackles noted Cardiovascular: Rate/Rhythm: regular rhythm Heart Sounds: no murmur Right BKA stump with irrigating wound VAC placed Gastrointestinal (Abdomen): Inspection/Auscultation: abdomen normal to inspection and normal bowel sounds; abdomen not distended Percussion/Palpation: abdomen soft; abdomen nontender Results & Data Results & Data ([facility]) Vital Signs (Past 12 Hours) Vital Signs Temp Pulse Pulse Resp BP Pulse Ox 02/28/20 07:32 77 02/28/20 07:09 36.9 C 77 19 147/79 H 94 02/28/20 02:55 37.4 C 83 16 145/74 H 90 02/27/20 23:00 36.7 C 77 83 16 147/73 H 90 Laboratory Results 02/28/20 02/28/20 02/28/20 Range/Units 07:36 06:48 06:48 WBC 10.98 H (4.8-10.8) K/uL RBC 4.32 L (4.7-6.1) M/uL Hgb 14.0 (14.0-18.0) g/dL Hct 41.1 L (42-52) % MCV 95.1 (80-100) fL MCH 32.4 (25-34) pg MCHC 34.1 (32-36) g/dL RDW Std Deviation 50.7 H (36.4-46.3) fL RDW Coeff of Martin 14.6 H (11.5-14.5) % Plt Count 242 (130-400) K/uL MPV 9.5 (7.4-10.4) fL Sodium 138 (136-145) mmol/L Potassium 3.9 (3.5-5.1) mmol/L Chloride 108 H (98-107) mmol/L Carbon Dioxide 25 (21-32) mmol/L Anion Gap 5.0 (3-11) BUN 19 H (7-18) mg/dl Creatinine 1.01 (0.6-1.4) mg/dl Est Cr Clr Drug Dosing 87.1 ml/min Est GFR ( Amer) 89.4 Est GFR (Non-Af Amer) 77.1 BUN/Creatinine Ratio 19.2 (10-20) Glucose 70 (70-99) mg/dl POC Glucose 77 (70-99) mg/dl Calcium 8.7 (8.5-10.1) mg/dl Phosphorus 2.9 (2.5-4.9) mg/dl Magnesium 2.2 (1.8-2.4) mg/dl 02/27/20 02/27/20 02/27/20 Range/Units 20:33 16:31 11:41 WBC (4.8-10.8) K/uL RBC (4.7-6.1) M/uL Hgb (14.0-18.0) g/dL Hct (42-52) % MCV (80-100) fL MCH (25-34) pg MCHC (32-36) g/dL RDW Std Deviation (36.4-46.3) fL RDW Coeff of Martin (11.5-14.5) % Plt Count (130-400) K/uL MPV (7.4-10.4) fL Sodium (136-145) mmol/L Potassium (3.5-5.1) mmol/L Chloride (98-107) mmol/L Carbon Dioxide (21-32) mmol/L Anion Gap (3-11) BUN (7-18) mg/dl Creatinine (0.6-1.4) mg/dl Est Cr Clr Drug Dosing ml/min Est GFR ( Amer) Est GFR (Non-Af Amer) BUN/Creatinine Ratio (10-20) Glucose (70-99) mg/dl POC Glucose 145 H 129 H 133 H (70-99) mg/dl Calcium (8.5-10.1) mg/dl Phosphorus (2.5-4.9) mg/dl Magnesium (1.8-2.4) mg/dl Medications Administered Current Inpatient Medications Acetaminophen (Tylenol) 650 mg PO Q4H PRN PRN Reason: Pain or Fever Stop: 03/26/20 15:29 Al Hydrox/Mg Hydrox/Simethicone (Maalox) 15 ml PO Q4H PRN PRN Reason: Dyspepsia Stop: 03/26/20 15:29 Aspirin (Ecotrin Ectab) 81 mg PO DAILY [facility] Stop: 03/27/20 08:59 Last Admin: 02/28/20 08:23 Dose: 81 mg Documented by: Clopidogrel Bisulfate (Plavix) 75 mg PO DAILY [facility] Stop: 03/27/20 08:59 Last Admin: 02/28/20 08:25 Dose: 75 mg Documented by: Dextrose (Dextrose 50%) 25 - 50 ml IV UD PRN; Protocol PRN Reason: Hypoglycemia Protocol Stop: 03/26/20 15:29 Doxycycline Hyclate (Doxycycline Hyclate 100 Mg Cap) 100 mg PO BID [facility] Stop: 03/03/20 20:59 Gabapentin (Neurontin) 300 mg PO TID [facility] Stop: 03/26/20 20:59 Last Admin: 02/28/20 08:23 Dose: 300 mg Documented by: Glucagon (Glucagen) 1 mg SQ UD PRN; Protocol PRN Reason: Hypoglycemia Protocol Stop: 03/26/20 15:29 Glucose (Dex4 Glucose) 4 - 8 tabs PO UD PRN; Protocol PRN Reason: Hypoglycemia Protocol Stop: 03/26/20 15:29 Glucose (Glucose 40%) 15 - 30 gm PO UD PRN; Protocol PRN Reason: Hypoglycemia Protocol Stop: 03/26/20 15:29 Heparin Sodium (Porcine) (Heparin Sodium (Porcine)) 5,000 units SQ Q8 [facility] Stop: 03/26/20 21:59 Last Admin: 02/28/20 05:03 Dose: 5,000 units Documented by: Hydromorphone HCl (Hydromorphone Inj 1 Mg/Ml Syringe) 1 mg IV Q4H PRN PRN Reason: Moderate Pain Stop: 03/11/20 13:57 Last Admin: 02/27/20 23:54 Dose: 1 mg Documented by: Doxycycline Hyclate 100 mg/ (Dextrose) 110 mls @ 50 mls/hr IV Q12H [facility] Stop: 03/06/20 09:59 Insulin Aspart (Insulin Aspart 100 Units/Ml 3 Ml Pen) 0 units SC ACHS [facility] Stop: 03/26/20 16:29 Last Admin: 02/28/20 08:31 Dose: 2 units Documented by: Insulin Glargine (Insulin Glargine Solostar 100 Units/Ml 3 Ml Pen) [facility] [place] Protocol Stop: 03/28/20 12:44 Last Admin: 02/28/20 08:30 Dose: 20 units Documented by: Magnesium Hydroxide (Milk Of Magnesia) 30 ml PO Q12H PRN PRN Reason: Constipation Stop: 03/26/20 15:29 Miscellaneous (Carbohydrates For Hypoglycemia) 15 - 30 gm PO UD PRN PRN Reason: Hypoglycemia Protocol Stop: 03/26/20 15:29 Miscellaneous (Remove Nicoderm Patch) 1 ea N/A DAILY@0859 [facility] Stop: 03/28/20 15:44 Last Admin: 02/28/20 08:24 Dose: 1 ea Documented by: Miscellaneous Information (Consult Glycemic Management Pharmacy) 1 ea N/A UD PRN; Protocol PRN Reason: Consult Stop: 03/26/20 15:36 Nicotine (Nicotine 14 Mg/24 Hr Patch) 14 mg TD [facility] Stop: 03/28/20 15:44 Last Admin: 02/28/20 08:24 Dose: 14 mg Documented by: Ondansetron HCl (Zofran) 4 mg IV Q6H PRN PRN Reason: Nausea Stop: 03/26/20 15:29 Oxycodone/Acetaminophen (Oxycodone/Acetaminophen 5mg/325mg Tab) 2 tab PO Q6H PRN PRN Reason: Pain Stop: 03/10/20 17:53 Last Admin: 02/28/20 05:03 Dose: 2 tab Documented by: Polyethylene Glycol (Miralax Powder Packet) 17 gm PO DAILY PRN PRN Reason: Constipation Stop: 03/26/20 15:29
[2020-02-28] MEDS: HYDROmorphone INJ 1 MG/ML SYRINGE IV PRN ×2 (10:28→16:46)
[2020-02-28] MEDS: POLYETHYLENE (MIRALAX) 17 GM PACK PO SCH (12:48)
[2020-02-28] MEDS: DOXYCYCLINE HYCLATE 100 MG in DEXTROSE 5% 100 ML IV SCH (21:34)
[2020-02-29] MEDS: HYDROmorphone INJ 1 MG/ML SYRINGE IV PRN ×3 (00:07→11:03)
[2020-02-29] MEDS: HEPARIN SOD 5,000 UNIT/0.5 ML VIAL SQ SCH ×2 (05:24→15:05)
[2020-02-29 07:02] LABS: Hematocrit (blood only) 43.4 % (42-52); Hemoglobin 14.7 g/dL (14.0-18.0); Mean Corpuscular Hemoglobin 32.1 pg (25-34); Mean Corpuscular Hgb Conc 33.9 g/dL (32-36); Mean Corpuscular Volume 94.8 fL (80-100); Mean Platelet Volume 9.5 fL (7.4-10.4); Platelet Count 268 K/uL (130-400); RDW Coefficient of Variation 14.5 % (11.5-14.5); RDW Standard Deviation 50.2 fL (36.4-46.3); Red Blood Count 4.58 M/uL (4.7-6.1); White Blood Count 10.66 K/uL (4.8-10.8)
[2020-02-29 07:34] LABS: Calcium 8.7 mg/dl (8.5-10.1); Creatinine Clr Calc Pharmacy 87.2 ml/min; Est GFR (African American) 90.5; Est GFR (Non-African American) 78.1; Magnesium 2.2 mg/dl (1.8-2.4)
[2020-02-29] MEDS: OXYCODONE/ACETAMINOPHEN 5mg/325mg TAB PO PRN ×2 (07:34→16:58)
[2020-02-29] MEDS: NICOTINE 14 MG/24 HR PATCH TD SCH (07:35)
[2020-02-29] MEDS: CLOPIDOGREL BISULFATE 75 MG TAB PO SCH (07:36)
[2020-02-29] MEDS: GABAPENTIN 300 MG CAP PO SCH ×2 (07:36→15:05)
[2020-02-29 07:37] LABS: Phosphorus 2.9 mg/dl (2.5-4.9)
[2020-02-29] MEDS: POLYETHYLENE (MIRALAX) 17 GM PACK PO SCH (07:37)
[2020-02-29] MEDS: ASPIRIN 81 MG ECTAB PO SCH (07:37)
[2020-02-29] MEDS: INSULIN ASPART 100 UNITS/ML 3 ML PEN SC SCH ×3 (08:18→16:59)
[2020-02-29] MEDS: INSULIN GLARGINE SOLOSTAR 100 UNITS/ML 3 ML PEN SC SCH (08:18)
[2020-02-29] MEDS: DOXYCYCLINE HYCLATE 100 MG in DEXTROSE 5% 100 ML IV SCH (08:19)
[2020-02-29] MEDS ORDERED: DAPTOMYCIN CONSULT ACTIVE PRN (09:18)
--- NOTE | 2020-02-29 09:19 | Hospitalist Progress Note ---
Date of Service February 29, 2020 Assessment & Plan (1) Right BKA infection: Has had right BKA in the last week of October 2019 John were removed about 3 weeks ago noted to have wound dehiscence Has been under care of wound care since then Has been taking doxycycline for staph aureus MRSA infection since 02/18/2020 and this was continued Patient is here for irrigation wound VAC placement Appreciate wound care provider input and recommendation Irrigation wound VAC has been applied The patient complained of severe pain with the wound VAC in place, now better controlled His pain medications have been increased ESR and CRP however continues to be elevated. With blood cell count essentially unchanged at 10,000. Discussed with wound care team, will obtain MRI of right lower extremity to evaluate for possible abscess or osteomyelitis We will also broaden IV antibiotics (2) Surgical wound, non healing: As above (3) DM type 2 (diabetes mellitus, type 2): Has type 2 diabetes on insulin We will hold oral diabetic medications and continue with SSI Has diabetic complications with neuropathy, retinopathy and is complicated by peripheral vascular disease Appreciate religious educator input and recommendation Hemoglobin A1c is 10.0 on 02/26/2020, however blood sugar level while in the hospital acceptable Likely no changes on discharge regarding his diabetic regimen, close follow-up with PCP (4) Diabetic peripheral angiopathy: (5) Peripheral vascular disease: (6) Carotid artery disease: History of CVA without any residual (7) GERD (gastroesophageal reflux disease): Continue PPI (8) Emphysema of lung: Chronic smoker and continues to smoke Has emphysema of the lung No acute exacerbation of COPD We will continue his current medications Will provide nicotine patch DVT prophylaxis Heparin subcu CODE STATUS Full Admission and Anticipated Discharge Date Admission Date: February 25, 2020 Subjective Patient is currently sitting up in bed, in no acute distress. Patient seen at bedside with WOCN and wound care surgeon Dr. Honeycutt. He has been tolerating the choice cleanse wound VAC. Labs show sed rate and CRP are both increasing. Discussed to obtain MRI, to evaluate for possible abscess or osteomyelitis. Patient denies any fevers, chills, chest pain, shortness of breath, abdominal pain, nausea or vomiting. Review of Systems Review of Systems: All systems reviewed & are unremarkable except as noted in HPI & below Constitutional: no fever and no chills Respiratory: no cough and no dyspnea Cardiovascular: no chest pain and no palpitations Gastrointestinal: no abdominal pain, no nausea and no vomiting Physical Exam Physical Exam: Physical Exam: Sitting up in a bed, without any distress Constitutional: well developed, well nourished and + obese; no acute distress and not ill appearing Eyes: PERRL, conjunctivae normal, anicteric sclerae ENMT: external ear and nose normal, oropharynx normal Neck: trachea midline, no thyromegaly Respiratory: normal respiratory effort; no respiratory distress Auscultation: lungs clear to auscultation bilaterally, no wheezing, rhonchi or crackles noted Cardiovascular: Rate/Rhythm: regular rhythm Heart Sounds: no murmur Extremities: Right BKA stump with irrigating wound VAC placed, removed by wound care team at the bedside, wound examined seems improved on medial side Gastrointestinal (Abdomen): Inspection/Auscultation: abdomen normal to inspection and normal bowel sounds; abdomen not distended Percussion/Palpation: abdomen soft; abdomen nontender Results & Data Results & Data ([facility]) Vital Signs (Past 12 Hours) Vital Signs Temp Pulse Pulse Resp BP Pulse Ox 02/29/20 07:09 36.8 C 72 18 148/75 H 95 02/29/20 03:08 36.6 C 67 17 126/71 94 02/29/20 00:22 75 02/29/20 00:04 36.6 C 72 17 138/73 90 Laboratory Results 02/29/20 02/29/20 02/29/20 Range/Units 07:14 06:17 06:17 WBC (4.8-10.8) K/uL RBC (4.7-6.1) M/uL Hgb (14.0-18.0) g/dL Hct (42-52) % MCV (80-100) fL MCH (25-34) pg MCHC (32-36) g/dL RDW Std Deviation (36.4-46.3) fL RDW Coeff of Martin (11.5-14.5) % Plt Count (130-400) K/uL MPV (7.4-10.4) fL ESR 77 H (0-14) mm/hr Sodium 136 (136-145) mmol/L Potassium 4.0 (3.5-5.1) mmol/L Chloride 104 (98-107) mmol/L Carbon Dioxide 24 (21-32) mmol/L Anion Gap 8.0 (3-11) BUN 17 (7-18) mg/dl Creatinine 1.00 (0.6-1.4) mg/dl Est Cr Clr Drug Dosing 87.2 ml/min Est GFR ( Amer) 90.5 Est GFR (Non-Af Amer) 78.1 BUN/Creatinine Ratio 17.0 (10-20) Glucose 98 (70-99) mg/dl POC Glucose 111 H (70-99) mg/dl Calcium 8.7 (8.5-10.1) mg/dl Phosphorus 2.9 (2.5-4.9) mg/dl Magnesium 2.2 (1.8-2.4) mg/dl C-Reactive Protein 10.00 H (0-0.29) mg/dl 02/29/20 02/28/20 02/28/20 Range/Units 06:17 20:11 16:40 WBC 10.66 (4.8-10.8) K/uL RBC 4.58 L (4.7-6.1) M/uL Hgb 14.7 (14.0-18.0) g/dL Hct 43.4 (42-52) % MCV 94.8 (80-100) fL MCH 32.1 (25-34) pg MCHC 33.9 (32-36) g/dL RDW Std Deviation 50.2 H (36.4-46.3) fL RDW Coeff of Martin 14.5 (11.5-14.5) % Plt Count 268 (130-400) K/uL MPV 9.5 (7.4-10.4) fL ESR (0-14) mm/hr Sodium (136-145) mmol/L Potassium (3.5-5.1) mmol/L Chloride (98-107) mmol/L Carbon Dioxide (21-32) mmol/L Anion Gap (3-11) BUN (7-18) mg/dl Creatinine (0.6-1.4) mg/dl Est Cr Clr Drug Dosing ml/min Est GFR ( Amer) Est GFR (Non-Af Amer) BUN/Creatinine Ratio (10-20) Glucose (70-99) mg/dl POC Glucose 141 H 99 (70-99) mg/dl Calcium (8.5-10.1) mg/dl Phosphorus (2.5-4.9) mg/dl Magnesium (1.8-2.4) mg/dl C-Reactive Protein (0-0.29) mg/dl 02/28/20 Range/Units 11:45 WBC (4.8-10.8) K/uL RBC (4.7-6.1) M/uL Hgb (14.0-18.0) g/dL Hct (42-52) % MCV (80-100) fL MCH (25-34) pg MCHC (32-36) g/dL RDW Std Deviation (36.4-46.3) fL RDW Coeff of Martin (11.5-14.5) % Plt Count (130-400) K/uL MPV (7.4-10.4) fL ESR (0-14) mm/hr Sodium (136-145) mmol/L Potassium (3.5-5.1) mmol/L Chloride (98-107) mmol/L Carbon Dioxide (21-32) mmol/L Anion Gap (3-11) BUN (7-18) mg/dl Creatinine (0.6-1.4) mg/dl Est Cr Clr Drug Dosing ml/min Est GFR ( Amer) Est GFR (Non-Af Amer) BUN/Creatinine Ratio (10-20) Glucose (70-99) mg/dl POC Glucose 106 H (70-99) mg/dl Calcium (8.5-10.1) mg/dl Phosphorus (2.5-4.9) mg/dl Magnesium (1.8-2.4) mg/dl C-Reactive Protein (0-0.29) mg/dl Medications Administered Current Inpatient Medications Acetaminophen (Tylenol) 650 mg PO Q4H PRN PRN Reason: Pain or Fever Stop: 03/26/20 15:29 Al Hydrox/Mg Hydrox/Simethicone (Maalox) 15 ml PO Q4H PRN PRN Reason: Dyspepsia Stop: 03/26/20 15:29 Aspirin (Ecotrin Ectab) 81 mg PO DAILY [facility] Stop: 03/27/20 08:59 Last Admin: 02/29/20 07:37 Dose: 81 mg Documented by: Clopidogrel Bisulfate (Plavix) 75 mg PO DAILY [facility] Stop: 03/27/20 08:59 Last Admin: 02/29/20 07:36 Dose: 75 mg Documented by: Dextrose (Dextrose 50%) 25 - 50 ml IV UD PRN; Protocol PRN Reason: Hypoglycemia Protocol Stop: 03/26/20 15:29 Doxycycline Hyclate (Doxycycline Hyclate 100 Mg Cap) 100 mg PO BID [facility] Stop: 03/03/20 20:59 Gabapentin (Neurontin) 300 mg PO TID [facility] Stop: 03/26/20 20:59 Last Admin: 02/29/20 07:36 Dose: 300 mg Documented by: Glucagon (Glucagen) 1 mg SQ UD PRN; Protocol PRN Reason: Hypoglycemia Protocol Stop: 03/26/20 15:29 Glucose (Dex4 Glucose) 4 - 8 tabs PO UD PRN; Protocol PRN Reason: Hypoglycemia Protocol Stop: 03/26/20 15:29 Glucose (Glucose 40%) 15 - 30 gm PO UD PRN; Protocol PRN Reason: Hypoglycemia Protocol Stop: 03/26/20 15:29 Heparin Sodium (Porcine) (Heparin Sodium (Porcine)) 5,000 units SQ Q8 [facility] Stop: 03/26/20 21:59 Last Admin: 02/29/20 05:24 Dose: 5,000 units Documented by: Hydromorphone HCl (Hydromorphone Inj 1 Mg/Ml Syringe) 1 mg IV Q4H PRN PRN Reason: Moderate Pain Stop: 03/11/20 13:57 Last Admin: 02/29/20 05:24 Dose: 1 mg Documented by: Doxycycline Hyclate 100 mg/ (Dextrose) 110 mls @ 50 mls/hr IV Q12H [facility]; Protocol Stop: 03/06/20 20:59 Last Admin: 02/29/20 08:19 Dose: 50 mls/hr Documented by: Insulin Aspart (Insulin Aspart 100 Units/Ml 3 Ml Pen) 0 units SC ACHS [facility]; Protocol Stop: 03/26/20 16:29 Last Admin: 02/29/20 08:18 Dose: 4 units Documented by: Insulin Glargine (Insulin Glargine Solostar 100 Units/Ml 3 Ml Pen) [facility] [place] Protocol Stop: 03/28/20 12:44 Last Admin: 02/29/20 08:18 Dose: 20 units Documented by: Magnesium Hydroxide (Milk Of Magnesia) 30 ml PO Q12H PRN PRN Reason: Constipation Stop: 03/26/20 15:29 Miscellaneous (Carbohydrates For Hypoglycemia) 15 - 30 gm PO UD PRN PRN Reason: Hypoglycemia Protocol Stop: 03/26/20 15:29 Miscellaneous (Remove Nicoderm Patch) 1 ea N/A DAILY@0859 [facility] Stop: 03/28/20 15:44 Last Admin: 02/29/20 07:34 Dose: 1 ea Documented by: Miscellaneous Information (Consult Glycemic Management Pharmacy) 1 ea N/A UD PRN; Protocol PRN Reason: Consult Stop: 03/26/20 15:36 Miscellaneous Information (Consult Pharmacy) 1 ea N/A NOW STA Stop: 02/29/20 09:15 Miscellaneous Information (Consult Pharmacy) 1 ea N/A NOW STA Stop: 02/29/20 09:17 Nicotine (Nicotine 14 Mg/24 Hr Patch) 14 mg TD QAM [facility] Stop: 03/28/20 15:44 Last Admin: 02/29/20 07:35 Dose: 14 mg Documented by: Ondansetron HCl (Zofran) 4 mg IV Q6H PRN PRN Reason: Nausea Stop: 03/26/20 15:29 Oxycodone/Acetaminophen (Oxycodone/Acetaminophen 5mg/325mg Tab) 2 tab PO Q6H PRN PRN Reason: Pain Stop: 03/10/20 17:53 Last Admin: 02/29/20 07:34 Dose: 2 tab Documented by: Polyethylene Glycol (Polyethylene (Miralax) 17 Gm Pack) 17 gm PO DAILY [facility] Stop: 03/29/20 12:29 Last Admin: 02/29/20 07:37 Dose: 17 gm Documented by:
[2020-02-29] MEDS ORDERED: CEFEPIME CONSULT ACTIVE PRN (09:20)
[2020-02-29] MEDS ORDERED: DAPTOmycin 325 MG in SYRINGE 0 ML IV SCH (10:00)
[2020-02-29] MEDS ORDERED: CEFEPIME 2,000 MG in SYRINGE 7.5 ML IV SCH (10:00)
--- NOTE | 2020-02-29 12:02 | Pharmacy Report ---
Pharmacy Glycemic Short Note 2 - Date of Service February 29, 2020 - Glycemic Short BSG Results (Last 24 hours): 02/28/20 02/28/20 02/29/20 16:40 20:11 06:17 Glucose 98 POC Glucose 99 141 H 02/29/20 02/29/20 07:14 11:34 Glucose POC Glucose 111 H 180 H ASSESSMENT: 02/28: * Patient received a total of 25 units of insulin yesterday * 20 units basal + 5 units bolus * BSGs ranged 77-141 mg/dL * Fasting BSG this AM is slightly below goal at 111 mg/dL; however, AM fasting has been trending upwards over the past 3 days 72 --> 77 -->111. AM fasting BSGs were below goal range secondary Lantus 40 units given on 02/25. Likely basal insulin requirements are ~ 20-30 units/day. No changes needed to basal insulin dosing at this time. May need to continue to titrate dosing upwards based on BSG trend over the next few days * Pre-lunch BSG elevated at 180mg/dl. Likely insulin needs are increasing as the Lantus 40 units from 02/25 has worn off. Will tighten CHO coverage slightly. 02/26 * Patient received total of 62 units of insulin this AM, of which 40 were basal insulin * Fasting BSG 72 mg/dL - held AM basal, restarted at lunch - decreased dosing due to lower fasting and limited po intake * Loosened CF/CR as BSGs trending down yesterday PLAN FOR INPATIENT GLYCEMIC CONTROL: * Basal insulin - no change * Lantus 20 units daily * Bolus insulin - tighten CHO coverage * NovoLog per scale ACHS or Q6hrs while NPO * Goal Range: Low 110 mg/dL - High 140 mg/dL * Correction Factor: 25 mg/dL/unit * Nutritional / Prandial insulin per carb ratio of 1 unit per 8 grams CHO consumed PLAN FOR DISCHARGE: * A1C elevated at 10% on admission * DM educator in to also see patient. Confirmed insulin dosing with patient. Patient reports SMBG 3-4x /day with BSGs ranging from 110s-160s and occasionally over 200 mg/dL. DM educator suggested CGM to patient. Many factors can affect A1c and alter level making inaccurate. * During hospital stay BSGs have been well controlled and insulin needs actually are less. Would be reasonable to continue home diabetic regimen as long as patient continues with SMBG and follows up with provider if BSGs out of range.
--- NOTE | 2020-02-29 13:51 | Wound Progress Note ---
Date of Service February 29, 2020 Assessment & Plan (1) Right BKA infection: Choice Ceanse VAC removed. Wound is remains covered with fibrin and slough. Medial aspect of the wound has improved the most. Due to increased sed rate and CRP despite being on antibiotics patient clinically improving agree with MRI to rule out abscess or osteomyelitis. Wound will be dressed with Kaltostat pending results of MRI. Will likely apply regular wound VAC with silver foam and less patient will be staying for a week and then would reapply to his cleanse wound VAC. We will continue to follow. Please call with any questions. Admission and Anticipated Discharge Date Admission Date: February 25, 2020 Subjective Patient seen at bedside with RYLEY and Dr. Reyes. Patient states pain is a little better controlled. He has been tolerating the choice cleanse wound VAC. Labs show sed rate and CRP are both increasing. Review of Systems Review of Systems: All systems reviewed & are unremarkable except as noted in HPI & below Physical Exam Constitutional: WD/WN, vitals as above Eyes: PERRL, conjunctivae normal, anicteric sclerae Skin: Wounds measuring as recorded in nursing documentation. Medial Wound cleaned up the most. Wound still covered with fibrin and slough. Periwound is intact and erythematous. Patient still with some pain to palpation. Results & Data ([facility]) Vital Signs (Past 12 Hours) Vital Signs Temp Pulse Pulse Resp BP BP Pulse Ox 02/29/20 11:17 78 02/29/20 10:53 36.9 C 67 18 112/64 95 02/29/20 07:09 36.8 C 72 18 148/75 H 95 02/29/20 03:08 36.6 C 67 17 126/71 94 Laboratory Results 02/29/20 02/29/20 02/29/20 Range/Units 11:34 07:14 06:17 WBC (4.8-10.8) K/uL RBC (4.7-6.1) M/uL Hgb (14.0-18.0) g/dL Hct (42-52) % MCV (80-100) fL MCH (25-34) pg MCHC (32-36) g/dL RDW Std Deviation (36.4-46.3) fL RDW Coeff of Martin (11.5-14.5) % Plt Count (130-400) K/uL MPV (7.4-10.4) fL ESR 77 H (0-14) mm/hr Sodium (136-145) mmol/L Potassium (3.5-5.1) mmol/L Chloride (98-107) mmol/L Carbon Dioxide (21-32) mmol/L Anion Gap (3-11) BUN (7-18) mg/dl Creatinine (0.6-1.4) mg/dl Est Cr Clr Drug Dosing ml/min Est GFR ( Amer) Est GFR (Non-Af Amer) BUN/Creatinine Ratio (10-20) Glucose (70-99) mg/dl POC Glucose 180 H 111 H (70-99) mg/dl Calcium (8.5-10.1) mg/dl Phosphorus (2.5-4.9) mg/dl Magnesium (1.8-2.4) mg/dl C-Reactive Protein (0-0.29) mg/dl 02/29/20 02/29/20 02/28/20 Range/Units 06:17 06:17 20:11 WBC 10.66 (4.8-10.8) K/uL RBC 4.58 L (4.7-6.1) M/uL Hgb 14.7 (14.0-18.0) g/dL Hct 43.4 (42-52) % MCV 94.8 (80-100) fL MCH 32.1 (25-34) pg MCHC 33.9 (32-36) g/dL RDW Std Deviation 50.2 H (36.4-46.3) fL RDW Coeff of Martin 14.5 (11.5-14.5) % Plt Count 268 (130-400) K/uL MPV 9.5 (7.4-10.4) fL ESR (0-14) mm/hr Sodium 136 (136-145) mmol/L Potassium 4.0 (3.5-5.1) mmol/L Chloride 104 (98-107) mmol/L Carbon Dioxide 24 (21-32) mmol/L Anion Gap 8.0 (3-11) BUN 17 (7-18) mg/dl Creatinine 1.00 (0.6-1.4) mg/dl Est Cr Clr Drug Dosing 87.2 ml/min Est GFR ( Amer) 90.5 Est GFR (Non-Af Amer) 78.1 BUN/Creatinine Ratio 17.0 (10-20) Glucose 98 (70-99) mg/dl POC Glucose 141 H (70-99) mg/dl Calcium 8.7 (8.5-10.1) mg/dl Phosphorus 2.9 (2.5-4.9) mg/dl Magnesium 2.2 (1.8-2.4) mg/dl C-Reactive Protein 10.00 H (0-0.29) mg/dl 02/28/20 Range/Units 16:40 WBC (4.8-10.8) K/uL RBC (4.7-6.1) M/uL Hgb (14.0-18.0) g/dL Hct (42-52) % MCV (80-100) fL MCH (25-34) pg MCHC (32-36) g/dL RDW Std Deviation (36.4-46.3) fL RDW Coeff of Martin (11.5-14.5) % Plt Count (130-400) K/uL MPV (7.4-10.4) fL ESR (0-14) mm/hr Sodium (136-145) mmol/L Potassium (3.5-5.1) mmol/L Chloride (98-107) mmol/L Carbon Dioxide (21-32) mmol/L Anion Gap (3-11) BUN (7-18) mg/dl Creatinine (0.6-1.4) mg/dl Est Cr Clr Drug Dosing ml/min Est GFR ( Amer) Est GFR (Non-Af Amer) BUN/Creatinine Ratio (10-20) Glucose (70-99) mg/dl POC Glucose 99 (70-99) mg/dl Calcium (8.5-10.1) mg/dl Phosphorus (2.5-4.9) mg/dl Magnesium (1.8-2.4) mg/dl C-Reactive Protein (0-0.29) mg/dl PG Care Time/CCT Total # of Minutes Spent Total Time Spent with Patient: Total time spent is greater than 50% in coordination of care (as documented) at patient's floor/unit and/or counseling patient: Coding Level of Care Code 80176 Subseq Hosp Care Lvl 2 Diagnoses 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
[2020-02-29] MEDS ORDERED: GADOBUTROL 65ML VIAL IV ONE (13:52)
--- NOTE | 2020-02-29 14:28 | Magnetic Resonance Report ---
MR lower leg RT wo/w con HISTORY: 64 years-old Male r/o osteomyeltis, abscess chronic nonhealing wound. Clinical concern for osteomyelitis. COMPARISON: Radiographs of the knees 01/03/2012 TECHNIQUE: Multiplanar multisequence MRI of the right lower leg was obtained both with and without th e use of 9.5 mL Gadavist. FINDINGS: Markedly motion degraded exam. Artifact from total joint arthroplasty also limits the study. postoperative changes of [id number] amputation. There is cortical irregularity with decreased T1 and increased T2/STIR signal involving the distal tibial cortex at the amputation stump (for example please see images 13 of series 4 and series 6. Periosteal edema and elevation of the distal tibial st ump is also present. The distal fibular stump is difficult to evaluate secondary to motion artifact. Minimally decreased T1 signal with increased T2/STIR signal of the distal cortex as seen on image 18 of series 4 and 6. No additional significant bone marrow edema. Evaluation of the soft tissues demonstrates marked diffuse intramuscular and subcutaneous edema. Ther e is an area of ill-defined decreased enhancement involving the proximal tibialis anterior musculatur e measuring approximately 3.2 x 2.9 cm on image 11 of series 15. Distal to this there is a 2.7 x 1.0 cm fluid collection which extends towards the cutaneous surface. Multifocal soft tissue and cutaneous ulceration of the amputation stump. IMPRESSION: 1. Limited exam secondary to patient motion and artifact from right knee total joint arthroplasty. 2. Osteomyelitis of the distal tibial cortex with reactive changes versus subtle developing osteomyel itis of the distal fibula. 3. Cellulitis with diffuse intramuscular edema suggestive of denervation changes versus myositis. 4. Myonecrosis of the proximal tibialis anterior with associated intramuscular 2.7 x 1.0 cm fluid col lection suspicious for abscess. ACT 112: Negative or not required by law. The above report was generated using voice recognition software. It may contain grammatical, syntax o r spelling errors. Electronically signed by: Jaspreet Lucas M.D. 02/29/2020 2:27 PM
--- NOTE | 2020-02-29 16:27 | Discharge Summary ---
Date of Service February 29, 2020 Admission HPI Per Admitting Provider Is a 64 years old obese male with significant past medical history of type 2 diabetes with peripheral neuropathy and peripheral vascular disease, GERD, history of CVA, carotid artery disease, hyperlipidemia has been sent from wound clinic for wound VAC irrigation of the right BKA stump. He underwent right BKA for diabetic neuropathy and peripheral vascular disease and last week of October in [place]. His john were taken out from the wound about 3 weeks ago and following that the wound showed dehiscence and has been under care of wound clinic as an outpatient. The wound has not been healing and today he was sent in to the hospital for application of irrigation with wound VAC to improve the wound healing. He has been on oral doxycycline for wound infection for the last 3 days which will be continued. He denies symptoms of fever, chills, any chest pain and/or palpitation, any abdominal pain, nausea or vomiting, any increasing redness, swelling, tenderness or drainage from the wound. Admission Exam Per Admitting Provider Physical Exam: Sitting in a chair without any distress Constitutional: well developed, well nourished and + obese; no acute distress and not ill appearing Eyes: PERRL, conjunctivae normal, anicteric sclerae ENMT: external ear and nose normal, oropharynx normal Neck: trachea midline, no thyromegaly Respiratory: normal respiratory effort; no respiratory distress Auscultation: lungs clear to auscultation bilaterally Cardiovascular: Rate/Rhythm: regular rhythm Heart Sounds: no murmur Ex tremities: + edema (Trace edema bilaterally) Gastrointestinal (Abdomen): Inspection/Auscultation: abdomen normal to inspection and normal bowel sounds; abdomen not distended Percussion/Palpation: abdomen soft; abdomen nontender Musculoskeletal: Has left AKA without any infection. Right BKA has wound dehiscence for the last 3 weeks or so. Neurologic: Alert, awake and oriented x3 Principal Diagnosis Right BKA wound infection, osteomyelitis, possible abscess Discharge Exam Physical Exam: Sitting up in a bed, without any distress Constitutional: well developed, well nourished and + obese; no acute distress and not ill appearing Eyes: PERRL, conjunctivae normal, anicteric sclerae ENMT: external ear and nose normal, oropharynx normal Neck: trachea midline, no thyromegaly Respiratory: normal respiratory effort; no respiratory distress Auscultation: lungs clear to auscultation bilaterally, no wheezing, rhonchi or crackles noted Cardiovascular: Rate/Rhythm: regular rhythm Heart Sounds: no murmur Extremities: Right BKA stump with irrigating wound VAC placed, removed by wound care team at the bedside, wound examined seems improved on medial side Gastrointestinal (Abdomen): Inspection/Auscultation: abdomen normal to inspection and normal bowel sounds; abdomen not distended Percussion/Palpation: abdomen soft; abdomen nontender Discharge Data Allergies Allergy/AdvReac Type Severity Reaction Status Date / Time No Known Allergies Allergy Verified 02/25/20 13:42 Consultations 02/25/20 15:30 Consult Wound Care Provider Routine 02/25/20 15:32 Consult Case Management - Discharge Planning Routine 02/29/20 16:05 Burn CD for patient Stat Ordered Studies 02/29/20 11:55 MR lower leg RT wo/w con Urgent IMPRESSION: 1. Limited exam secondary to patient motion and artifact from right knee total joint arthroplasty. 2. Osteomyelitis of the distal tibial cortex with reactive changes versus subtle developing osteomyelitis of the distal fibula. 3. Cellulitis with diffuse intramuscular edema suggestive of denervation changes versus myositis. 4. Myonecrosis of the proximal tibialis anterior with associated intramuscular 2.7 x 1.0 cm fluid collection suspicious for abscess. Hospital Course (1) Right BKA infection: Has had right BKA in the last week of October 2019 John were removed about 3 weeks ago noted to have wound dehiscence Has been under care of wound care since then Has been taking doxycycline for staph aureus MRSA infection since 02/18/2020 and this was continued Patient is here for irrigation wound VAC placement Appreciate wound care provider input and recommendation Irrigation wound VAC has been applied The patient complained of severe pain with the wound VAC in place, now better controlled His pain medications have been increased ESR and CRP however continues to be elevated ESR 77, CRP 10 (was 2.5 on 02/24). WBC essentially unchanged at 10-11,000. Discussed with wound care team, and obtained MRI of right lower extremity to evaluate for possible abscess or osteomyelitis Also broaden IV antibiotics -daptomycin and cefepime MRI results concerning for acute osteomyelitis and abscess, discussed with Dr. Honeycutt from wound care, recommend to discuss with patient's surgeon, contacted [facility] in [place], patient had right BKA done by Dr. Sheppard in October 2019 and closely follows with his other complex vascular issues there. Of note, there is no vascular surgery available at [facility] at this time. Talked to Dr. Viera, who is the vascular surgeon on-call, who believes that patient may need above-knee amputation. Dr. Mejía is the accepting physician. (2) Surgical wound, non healing: As above (3) DM type 2 (diabetes mellitus, type 2): Has type 2 diabetes on insulin We will hold oral diabetic medications and continue with SSI Has diabetic complications with neuropathy, retinopathy and is complicated by peripheral vascular disease Appreciate drafter engineering input and recommendation Hemoglobin A1c is 10.0 on 02/26/2020, however blood sugar level while in the hospital acceptable Likely no changes on discharge regarding his diabetic regimen, close follow-up with PCP (4) Diabetic peripheral angiopathy: (5) Peripheral vascular disease: (6) Carotid artery disease: History of CVA without any residual (7) GERD (gastroesophageal reflux disease): Continue PPI (8) Emphysema of lung: Chronic smoker and continues to smoke Has emphysema of the lung No acute exacerbation of COPD We will continue his current medications Will provide nicotine patch DVT prophylaxis Heparin subcu CODE STATUS Full Total Time Total Time Spent Total Time Spent (In Minutes): 40 Total Time Includes: Examination of the Patient, Discharge Planning, Medication Reconciliation and Communication With Other Providers Discharge Plan Discharge Items Patient Disposition: Transfer Acute Care Hospital Reason For Visit: WOUND INFECTION Discharge Diagnosis: Right BKA wound infection, osteomyelitis, possible abscess Activity: Per Instructions section Non-emergency contact: Primary Care Provider and Surgeon Call non-emergency contact if: you have any medication questions and your symptoms worsen Follow-up/Referrals: Zion Moses MD [Primary Care Provider] - 03/05/20 12:20 pm (03/05/2020 12:20 PM Provider Zion Moses MD Department [facility] ) Diet: Carb Consistent or DM2 and Heart Healthy Addtl Attending Provider Instructions: MRI obtained today, shows possible osteomyelitis and possible abscess. Discussed with Dr. Honeycutt from wound care and Dr. Veira, vascular surgery in [place]. Patient may need above-knee amputation. Patient will be transferred to [facility] in [place]. Accepting physician, Dr. Mejía /Dr. Viera. Pending Studies at Discharge: No Stand-Alone Forms: My [facility] Skilled Items Patient informed of condition?: Yes DNR: No Discharge Level of Care: Other Communicable Disease: No Discharge Prognosis: Other Lines: Peripheral IV Urinary Catheter: No Medications and DC Order Prescriptions: Continued Santyl 250 unit/gram ointment 1 applic TOP DAILY 14 Days Qty: 90 RF: 1 Aspirin (Aspirin EC Low Dose) 81 MG ENTERIC COATED TAB 81 mg PO DAILY Qty: 0 RF: 0 Clopidogrel (Plavix) 75 MG tablet 75 mg PO DAILY Qty: 0 RF: 0 Insulin Aspart (NOVOLOG) 100 UNITS/ML INJECTION 1 dose subcut UD Qty: 0 RF: 0 Insulin Glargine (Lantus Solostar) 100 UNIT/ML INJECTION 60 unit SC DAILY Qty: 0 RF: 0 Gabapentin (Neurontin) 300 MG capsule 300 mg PO TID Qty: 0 RF: 0 Discontinued doxycycline hyclate 100 mg tablet 100 mg PO bid 14 Days Qty: 28 RF: 0 Discharge Orders: Discharge Order (Routine); Ordered 02/29/20 Ordered By: Stepan Reyes Admission Data Admit Date/Time: 02/25/20 15:39 Attending Provider: Stepan Reyes Admit Provider: Ingrid Teran Primary Care Provider: Zion Moses Other Providers: Tray Honeycutt ; Andrew Brown ; [facility] ; Aleksander Gerardo
== END 2020-02-29 17:37 | disposition short-term general hospital (02) | DRG 566 ==
LOC: SUATTDRO 15:39 → 2W 15:39

== ENCOUNTER 2020-05-28 11:11 | Inpatient (IN) ==
--- NOTE | 2020-05-28 11:35 | Emergency Department Note ---
Impression & Plan BKA stump complication, Acute leg pain, Hyperglycemia, Encounter for smoking cessation counseling ED Provider Note NAME: CANDY BASS AGE: 64 SEX: M : 1955 ARRIVES VIA: Walk-In INFORMANT: Patient, ED PROVIDER(S): Manuelito Spivey MD Chief Complaint: Leg pain, doctor referral HPI: Patient does present with concern for persistent right lower extremity pain. The patient did have a prior history of BKA completed at [facility] in [facility] in October. The patient was seen in wound care as the patient has had failed outpatient wound management was referred here for the possibility of an AKA and antibiotics. The patient is amenable to having a procedure done here if it can be accomplished. The patient denies any fevers or chills. The patient is a diabetic and a smoker. The patient has tried [id number] medications help with his pain relief but this has not improved much. The patient was seen in wound care today where he did have his bandage broken down and rebandaged. Patient denies any nausea vomiting chest pains or shortness of breath. Per the outpatient note Dr. Honeycutt had spoken with Catherine of the [facility] hospitalist service but was referred here due to bed status. Ou tpatient does show that the patient does have a wound that is greater than 300 cm and this is worse compared to prior. ROS: See HPI for pertinent positives and negatives. A total of 10 systems were reviewed and otherwise negative. Past medical history: See below Surgical history: See below Social history: See below Physical Exam: GENERAL: Wearing glasses and a mask. NAD, non-toxic. EYE EXAM: Normal conjunctiva. PERRL, no anisocoria and EOM's grossly intact w/o pain. NECK: Supple, no nuchal rigidity, no adenopathy, non-tender. No signs of meningismus. LUNGS: Clear to auscultation. Normal chest wall mechanics. HEART: NSR, no MRG. ABDOMEN: Abdomen soft, non-tender, normo-active bowel sounds, no masses, no rebound or guarding. BACK: No CVA TTP. SKIN: No rashes and no bruising. UPPER EXTREMITIES: Upper extremities are grossly normal. LOWER EXTREMITIES: Left lower extremity AKA well-healed, right lower extremity BKA and bandage with open wounds. NEURO EXAM: A&O x3, cranial nerves II-XII grossly intact, normal speech, moves all 4 extremities on command w/o issue. Differential diagnoses: Sepsis, UTI, pneumonia, metabolic, electrolyte abnormalities, cardiac sources, intracerebral event, toxicologic, neurologic, as well as other pathologies. Course: Patient was seen and evaluated the bedside. Full history physical exam was performed. EKG: Indication: Screener Normal sinus rhythm, rate 84, normal intervals, normal axis, slight depression in the lateral leads. Morphology appears unchanged from prior EKG February 26, 2020. Imaging Studies: Radiology results as stated below per my review in the radiologist's interpretation: XR tibia fibula RT 2V HISTORY: 64 years-old Male R BKA h/o osteo patient presents with a chronic nonhealing wound of the right lower leg COMPARISON: Right lower leg MRI 02/29/2020 TECHNIQUE: 2 views of the right lower leg FINDINGS: There is diffuse soft tissue edema. Right knee total joint arthroplasty and patella resurfacing with small joint effusion. Arterial calcifications. Popliteal arterial stent. Below the knee amputation with soft tissue irregularity/ulceration at the amputation stump. No definitive osseous erosions identified. No acute fracture. IMPRESSION: 1. Soft tissue swelling and small joint effusion without acute fracture. 2. No osseous erosion to suggest acute osteomyelitis. ACT 112: Negative or not required by law. The above report was generated using voice recognition software. It may contain grammatical, syntax or spelling errors. Electronically signed by: Jaspreet Lucas M.D. 05/28/2020 12:50 PM Dictated: 05/28/20 1247Transcribed: 05/28/20 1247 Cardiac monitoring: An order was placed for continuous cardiac monitoring. The monitor shows a rate of 79 with sinus rhythm. MDM: Patient was seen due to concern for worsening wound over the right lower extremity. Patient was seen in wound clinic today and was referred here for evaluation and treatment. Patient did a blood work completed and was started on vancomycin and cefepime. I did speak with the on-call hospitalist who wanted further discussion with somebody that could perform the AKA. I did speak with several orthopedic services some of which did have a surgeon who can perform an AKA but would not have OR time this week. I did speak with Dr. Shar MD of vascular he stated that he would be able to perform the AKA. I did speak to the on-call hospitalist again. Patient was subsequently mated to Dr. Jeffry MD. I did securities counselor the patient on smoking cessation and discussed that the continued smoking would prevent or complicate wound healing. Patient understood. I counseled patient on smoking cessation for 3 minutes. Treatment options discussed and resources provided. Patient was receptive. Past Med/Surg History Medical History CAD in nome artery Carotid artery disease S/P right CEA by Dr. Sheppard on 09/14/17. 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 PAD (peripheral artery disease) Peripheral vascular disease Tobacco dependence Surgical History History of angioplasty of peripheral vessel L LEG left popliteal artery angioplasty and stent as left AT/peroneal/TP trunk angioplasty on 05/10/[address] Sheppard left AKA on 12/19/17 09/27/17 for angioplasty/stent of the left SFA, but noted to have a BK- popliteal occlusion (would need a left fem=>AT bypass). left common femoral endarterectomy with vein patch angioplasty and common femoral artery => anterior tibial artery bypass using non-reversed left great saphenous vein 10/20/2017. R LEG RSFA stent and, angioplasty of PT/peroneal artery 06/06/[address] Mosqueda S/P right TOMMIE/TP-trunk/peroneral/PT angioplasty by Dr. Mosqueda on 10/25/18. 02/2019 again prompted additional intervention He underwent bilateral common & external iliac artery stents (one 7 x 80 mm Everflex stent on each side) and right SFA/pop/TP-trunk angioplasty by Dr. Cathleen pinzon 04/03/19. 05/09/20 He underwent balloon angioplasty of right SFA/popliteal/TP-trunk/peroneral arteries and open amputation of the R 5th toe by Dr. Sheppard on 08/10/19. History of femoropopliteal bypass History of right below knee amputation 11/15/[address] 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 ALSO HAS SISTER WHO IS ABLE TO HELP NEEDED. Feels Safe at Home: Yes during the past year weight has: increased > 10 lbs Assistive Devices: Slide Board and Wheelchair Allergies Allergies Allergy/AdvReac Type Severity Reaction Status Date / Time No Known Allergies Allergy Verified 05/28/20 12:18 Home Meds Home Medications Medication Instructions Recorded Confirmed aspirin 81 mg tablet,delayed 81 mg PO DAILY 04/30/20 05/28/20 release clopidogrel 75 mg tablet 75 mg PO DAILY 04/30/20 05/28/20 gabapentin 300 mg capsule 300 mg PO TID 04/30/20 05/28/20 insulin aspart U-100 100 unit/mL 1 sliding scale dose SUBCUT 04/30/20 05/28/20 subcutaneous solution USEASDIRECTD insulin glargine 100 unit/mL 60 unit SUBCUT DAILY ml 04/30/20 05/28/20 subcutaneous solution oxycodone 10 mg tablet 10 mg PO Q6H PRN 04/30/20 05/28/20 hydrocodone-acetaminophen 1 - 2 tab PO Q8H PRN 05/28/20 05/28/20 polyethylene glycol 3350 [Miralax] 17 g PO DAILY PRN 05/28/20 05/28/20 Results & Data (ED) Vital Signs Vital Signs - 24 hr 05/28/20 11:16 05/28/20 12:15 05/28/20 12:33 Temperature 36.8 C Temperature Source Oral Pulse Rate 91 H 85 Pulse Rate from SpO2 Sensor Respiratory Rate 18 18 Blood Pressure 141/72 H Blood Pressure Mean 95 Pulse Oximetry 96 Oxygen Delivery Method Room Air Room Air Sepsis Recent Fever Within 48 Hours No Sepsis New/Unexplained Change in Mental Status No Sepsis Action Taken by Nursing No Action Required 05/28/20 13:00 05/28/20 13:04 05/28/20 13:30 Temperature Temperature Source Pulse Rate 78 79 80 Pulse Rate from SpO2 Sensor 79 80 Respiratory Rate 22 22 23 Blood Pressure 177/80 H Blood Pressure Mean 114 Pulse Oximetry 97 97 Oxygen Delivery Method Sepsis Recent Fever Within 48 Hours Sepsis New/Unexplained Change in Mental Status Sepsis Action Taken by Nursing 05/28/20 14:00 05/28/20 14:30 05/28/20 15:00 Temperature Temperature Source Pulse Rate 80 78 77 Pulse Rate from SpO2 Sensor 80 78 78 Respiratory Rate 22 23 18 Blood Pressure 187/91 H 160/82 H 180/87 H Blood Pressure Mean 129 96 125 Pulse Oximetry 95 93 96 Oxygen Delivery Method Sepsis Recent Fever Within 48 Hours Sepsis New/Unexplained Change in Mental Status Sepsis Action Taken by Nursing 05/28/20 15:30 05/28/20 16:00 05/28/20 16:30 Temperature Temperature Source Pulse Rate 76 82 79 Pulse Rate from SpO2 Sensor 76 82 79 Respiratory Rate 23 22 21 Blood Pressure 164/85 H 198/82 H 186/79 H Blood Pressure Mean 120 123 117 Pulse Oximetry 95 97 94 Oxygen Delivery Method Sepsis Recent Fever Within 48 Hours Sepsis New/Unexplained Change in Mental Status Sepsis Action Taken by Nursing 05/28/20 16:55 Temperature Temperature Source Pulse Rate Pulse Rate from SpO2 Sensor Respiratory Rate Blood Pressure Blood Pressure Mean Pulse Oximetry Oxygen Delivery Method Room Air Sepsis Recent Fever Within 48 Hours Sepsis New/Unexplained Change in Mental Status Sepsis Action Taken by Longterm Medications Current Medication List: was personally reviewed by me Laboratory Data Attestation: I reviewed the patient's lab results. Result diagrams: 05/28/20 12:41 05/28/20 12:41 Lab Results 05/28/20 05/28/20 05/28/20 Range/Units 12:41 12:41 12:41 WBC 10.55 (4.8-10.8) K/uL RBC 4.28 L (4.7-6.1) M/uL Hgb 14.1 (14.0-18.0) g/dL Hct 40.4 L (42-52) % MCV 94.4 (80-100) fL MCH 32.9 (25-34) pg MCHC 34.9 (32-36) g/dL RDW Std Deviation 47.9 H (36.4-46.3) fL RDW Coeff of Martin 14.0 (11.5-14.5) % Plt Count 302 (130-400) K/uL MPV 9.6 (7.4-10.4) fL Immature Gran % (Auto) 0.3 % Neut % (Auto) 68.5 % Lymph % (Auto) 21.1 % Lamb % (Auto) 8.2 % Eos % (Auto) 1.5 % Baso % (Auto) 0.4 % Neut # (Auto) 7.22 H (1.4-6.5) K/uL Lymph # (Auto) 2.23 (1.2-3.4) K/uL Lamb # (Auto) 0.87 H (0.11-0.59) K/uL Eos # (Auto) 0.16 (0-0.5) K/uL Baso # (Auto) 0.04 (0-0.2) K/uL Immature Gran # (Auto) 0.03 H (0.00-0.02) K/uL ESR 78 H (0-14) mm/hr Sodium 134 L (136-145) mmol/L Potassium 4.1 (3.5-5.1) mmol/L Chloride 101 (98-107) mmol/L Carbon Dioxide 27 (21-32) mmol/L Anion Gap 6.0 (3-11) BUN 23 H (7-18) mg/dl Creatinine 1.00 (0.6-1.4) mg/dl Est Cr Clr Drug Dosing Not Reportable Est GFR ( Amer) 90.5 Est GFR (Non-Af Amer) 78.1 BUN/Creatinine Ratio 23.3 H (10-20) Glucose 294 H (70-99) mg/dl Lactate (0.4-2.0) mmol/L Calcium 9.8 (8.5-10.1) mg/dl Total Bilirubin 0.4 (0.2-1) mg/dl AST 21 (15-37) U/L ALT 22 (12-78) U/L Alkaline Phosphatase 79 (45-117) U/L C-Reactive Protein 8.42 H (0-0.29) mg/dl Total Protein 8.2 (6.4-8.2) gm/dl Albumin 3.1 L (3.4-5.0) gm/dl Globulin 5.1 H (2.5-4.0) gm/dl Albumin/Globulin Ratio 0.6 L (0.9-2) TSH 0.486 (0.300-4.500) uIu/ml 05/28/20 Range/Units 16:16 WBC (4.8-10.8) K/uL RBC (4.7-6.1) M/uL Hgb (14.0-18.0) g/dL Hct (42-52) % MCV (80-100) fL MCH (25-34) pg MCHC (32-36) g/dL RDW Std Deviation (36.4-46.3) fL RDW Coeff of Martin (11.5-14.5) % Plt Count (130-400) K/uL MPV (7.4-10.4) fL Immature Gran % (Auto) % Neut % (Auto) % Lymph % (Auto) % Lamb % (Auto) % Eos % (Auto) % Baso % (Auto) % Neut # (Auto) (1.4-6.5) K/uL Lymph # (Auto) (1.2-3.4) K/uL Lamb # (Auto) (0.11-0.59) K/uL Eos # (Auto) (0-0.5) K/uL Baso # (Auto) (0-0.2) K/uL Immature Gran # (Auto) (0.00-0.02) K/uL ESR (0-14) mm/hr Sodium (136-145) mmol/L Potassium (3.5-5.1) mmol/L Chloride (98-107) mmol/L Carbon Dioxide (21-32) mmol/L Anion Gap (3-11) BUN (7-18) mg/dl Creatinine (0.6-1.4) mg/dl Est Cr Clr Drug Dosing Est GFR ( Amer) Est GFR (Non-Af Amer) BUN/Creatinine Ratio (10-20) Glucose (70-99) mg/dl Lactate 0.9 (0.4-2.0) mmol/L Calcium (8.5-10.1) mg/dl Total Bilirubin (0.2-1) mg/dl AST (15-37) U/L ALT (12-78) U/L Alkaline Phosphatase (45-117) U/L C-Reactive Protein (0-0.29) mg/dl Total Protein (6.4-8.2) gm/dl Albumin (3.4-5.0) gm/dl Globulin (2.5-4.0) gm/dl Albumin/Globulin Ratio (0.9-2) TSH (0.300-4.500) uIu/ml Administered Medications Discontinued Medications Vancomycin HCl 2,500 mg/ (Sodium Chloride) 550 mls @ 200 mls/hr IV NOW ONE Stop: 05/28/20 15:08 Last Infusion: 05/28/20 16:02 Dose: 0 mls/hr Documented by: [id number] Admin: 05/28/20 13:04 Dose: 200 mls/hr Documented by: [id number] Cefepime HCl (Maxipime) 2,000 mg in 20 mls @ 5 mls/min IV NOW STA; Protocol Stop: 05/28/20 12:27 Last Admin: 05/28/20 13:05 Dose: 5 mls/min Documented by: [id number] Morphine Sulfate (Morphine Sulfate 4 Mg/Ml 1 Ml Carp\\Vial) 4 mg IV NOW STA Stop: 05/28/20 11:59 Last Admin: 05/28/20 13:04 Dose: 4 mg Documented by: [id number] Morphine Sulfate (Morphine Sulfate 4 Mg/Ml 1 Ml Carp\\Vial) 4 mg IV NOW STA Stop: 05/28/20 14:44 Last Admin: 05/28/20 14:59 Dose: 4 mg Documented by: [id number] Discharge Plan Visit Data Chief Complaint: Leg Injury/Pain Stated Complaint: RIGHT LEG PAIN ED Provider: Manuelito Spivey Discharge Problem: BKA stump complication, Acute leg pain, Hyperglycemia, Encounter for smoking cessation counseling Discharge Instructions Interventions: ED Discharge Assessment Last Done: 05/28/20 16:55 Forms Stand Alone Forms: [facility] Prescriptions Prescriptions: No Action aspirin 81 mg tablet,delayed release (DR/EC) 81 mg PO DAILY RF: 0 clopidogrel [Plavix] 75 mg tablet 75 mg PO DAILY RF: 0 gabapentin 300 mg capsule 300 mg PO TID RF: 0 Lantus U-100 Insulin 100 unit/mL solution 60 unit subcut DAILY RF: 0 insulin aspart U-100 [Novolog U-100 Insulin aspart] 100 unit/mL solution 1 sliding scale dose subcut USEASDIRECTD RF: 0 oxycodone 10 mg tablet 10 mg PO Q6H PRN (Reason: Pain) RF: 0 hydrocodone-acetaminophen 5-325 mg tablet 1 - 2 tab PO Q8H PRN (Reason: Severe Pain (Scale Score 7-10)) RF: 0 polyethylene glycol 3350 [Miralax] 17 gram/dose Powder 17 g PO DAILY PRN (Reason: Constipation) RF: 0 Referrals Referrals: Zion Moses MD [Primary Care Provider] -
[2020-05-28] MEDS ORDERED: MoRPHine SULFATE 4 MG/ML 1 ML CARP\\VIAL IV STA ×2 (11:58→14:43)
[2020-05-28] MEDS ORDERED: VANCOMYCIN HCL 2,500 MG in SODIUM CHLORIDE 0.9% 500 ML IV ONE (12:24)
[2020-05-28] MEDS ORDERED: VANCOMYCIN CONSULT ACTIVE PRN ×2 (12:24→16:05)
[2020-05-28] MEDS ORDERED: CEFEPIME 2,000 MG/20 ML VIAL IV STA (12:24)
--- NOTE | 2020-05-28 12:51 | XRay Report ---
XR tibia fibula RT 2V HISTORY: 64 years-old Male R BKA h/o osteo patient presents with a chronic nonhealing wound of the r ight lower leg COMPARISON: Right lower leg MRI 02/29/2020 TECHNIQUE: 2 views of the right lower leg FINDINGS: There is diffuse soft tissue edema. Right knee total joint arthroplasty and patella resurfacing with small joint effusion. Arterial calcifications. Popliteal arterial stent. Below the knee amputation wi th soft tissue irregularity/ulceration at the amputation stump. No definitive osseous erosions identi fied. No acute fracture. IMPRESSION: 1. Soft tissue swelling and small joint effusion without acute fracture. 2. No osseous erosion to suggest acute osteomyelitis. ACT 112: Negative or not required by law. The above report was generated using voice recognition software. It may contain grammatical, syntax o r spelling errors. Electronically signed by: Jaspreet Lucas M.D. 05/28/2020 12:50 PM
[2020-05-28 13:09] LABS: Basophils # (auto) 0.04 K/uL (0-0.2); Basophils % (auto) 0.4 %; Eosinophils # (auto) 0.16 K/uL (0-0.5); Eosinophils % (auto) 1.5 %; Hematocrit (blood only) 40.4 % (42-52); Hemoglobin 14.1 g/dL (14.0-18.0); Immature Granulocytes # (auto) 0.03 K/uL (0.00-0.02); Immature Granulocytes % (auto) 0.3 %; Lymphocytes # (auto) 2.23 K/uL (1.2-3.4); Lymphocytes % (auto) 21.1 %; Mean Corpuscular Hemoglobin 32.9 pg (25-34); Mean Corpuscular Hgb Conc 34.9 g/dL (32-36); Mean Corpuscular Volume 94.4 fL (80-100); Mean Platelet Volume 9.6 fL (7.4-10.4); Monocytes # (auto) 0.87 K/uL (0.11-0.59); Monocytes % (auto) 8.2 %; Neutrophils # (auto) 7.22 K/uL (1.4-6.5); Neutrophils % (auto) 68.5 %; Platelet Count 302 K/uL (130-400); RDW Standard Deviation 47.9 fL (36.4-46.3); Red Blood Count 4.28 M/uL (4.7-6.1); White Blood Count 10.55 K/uL (4.8-10.8)
[2020-05-28 13:25] LABS: Albumin Level 3.1 gm/dl (3.4-5.0); Aspartate Aminotransferase 21 U/L (15-37); BUN Creatinine Ratio 23.3 (10-20); Blood Urea Nitrogen 23 mg/dl (7-18); C Reactive Protein 8.42 mg/dl (0-0.29); Calcium 9.8 mg/dl (8.5-10.1); Carbon Dioxide 27 mmol/L (21-32); Chloride 101 mmol/L (98-107); Est GFR (African American) 90.5; Est GFR (Non-African American) 78.1; Glucose 294 mg/dl (70-99); Potassium 4.1 mmol/L (3.5-5.1); Sodium 134 mmol/L (136-145)
[2020-05-28 13:38] LABS: Alanine Aminotransferase 22 U/L (12-78); Albumin Globulin Ratio 0.6 (0.9-2); Alkaline Phosphatase 79 U/L (45-117); Bilirubin,Total 0.4 mg/dl (0.2-1); Globulin 5.1 gm/dl (2.5-4.0); Thyroid Stimulating Hormone 0.486 uIu/ml (0.300-4.500); Total Protein 8.2 gm/dl (6.4-8.2)
[2020-05-28] MEDS ORDERED: HYDROmorphone INJ 2 MG/ML SYR/VIAL IV STA (16:17)
--- NOTE | 2020-05-28 16:36 | History & Physical Report ---
Date of Service May 28, 2020 Assessment & Plan (1) Right BKA infection: Suspect non-resolving osteomyelitis that will require surgical intervention. ED spoke with vascular surgery here who would be willing to perform procedure - Consult vascular surgery - Dr. Teran discussed the case with Dr. Myles - Repeat MRI to evaluate for persistent osteo/extent of infection - Pain control - HOLD aspirin and Plavix in anticipation of potential surgery on Tuesday - SubQ heparin for DVT prophylaxis - will need to hold 12 hours prior to procedure - IV cefepime and vancomycin started in the ED - will continue for now - Wound care consult - Check culture from stump wound to guide antibiotic therapy - Consult infectious disease (2) DM type 2 (diabetes mellitus, type 2): - Pharm consult for glycemic management - Diabetic diet and Accuchecks - Continue gabapentin for neuropathy (3) Emphysema of lung: Not currently on inhalers - check chest and rib x-ray in view of planned procedure and recent fall with persistent tenderness (4) Falls: Two episodes of dizziness with resultant falls in the past week - will check EKG. If recurrent dizziness, may need additional work-up. - PT/OT post-operatively (5) PAD (peripheral artery disease): Holding aspirin and plavix in anticipation of planned procedure Pt seen and reviewed with collaborating physician, Dr. Teran. Plan of care discussed and as outlined above. Pt requests to be a full code at this time. Jose Lizama PA-C History of Present Illness Chief Complaint: Worsening pain Primary Care Provider: Zion Moses MD This is a 64 y/o male with a complicated history including PAD, s/p left AKA, s/p right BKA, IRDM, reflux esophagitis, COPD/emphysema, dyslipidemia, prior CVA, CAD, bilateral carotid artery disease, and prior hx of osteomyelitis who presents from wound care due to progressive in the right BKA stump with concern for persistent osteomyelitis that would require additional surgical intervent ion. Pt was most recently admitted at this facility in February with infection of the right BKA site and was found to have osteomyelitis. He was transferred to [facility] due to no vascular surgeon available in this facility and potential need for AKA. However, pt apparently refused the recommended AKA at the time and instead underwent wound exploration with sharp excisional debridement of skin and subc utaneous tissue. Culture from the procedure MSSA and MRSA. Pt was sent home on IV antibiotics, which he apparently finished the end of March. Pt reports that he was feeling better while on the IV antibiotics but developed recurrent burning pain in the stump shortly after finishing. The pain has continued to worsen in severity and duration since then. It is now constant although waxes and wanes, better with letting the stump hang over the edge of the bed or chair. It is worse when he is lying flat and keeps him up at night. He reports not sleeping well for weeks. He notes occasional chills but denies documented fevers. He was seen by ID on 05/22 who d/c'd his PICC line and recommended an MRI to evaluate for ongoing infection (which pt has not yet had). He was seen by wound care today who were concerned about recurrent osteomyelitis and referred pt to [facility] for admission through the ED. Pt is now willing to undergo AKA. He does note two episodes of dizziness resulting in falls (out of his wheelchair) over the last week, most recently on Tuesday (5 days ago). No LOC. Did not hit head. Did have an abrasion on right knee and has persistent pain in right side since then. Denies pain with deep breathing or shortness of breath. Allergies Allergy/AdvReac Type Severity Reaction Status Date / Time No Known Allergies Allergy Verified 05/28/20 12:18 Home Medications Home Medications Medication Instructions Recorded Confirmed Type aspirin 81 mg tablet,delayed 81 mg PO DAILY 04/30/20 05/28/20 History release clopidogrel 75 mg tablet 75 mg PO DAILY 04/30/20 05/28/20 History gabapentin 300 mg capsule 300 mg PO TID 04/30/20 05/28/20 History insulin aspart U-100 100 unit/mL 1 sliding scale dose SUBCUT 04/30/20 05/28/20 History subcutaneous solution USEASDIRECTD insulin glargine 100 unit/mL 60 unit SUBCUT DAILY ml 04/30/20 05/28/20 History subcutaneous solution oxycodone 10 mg tablet 10 mg PO Q6H PRN 04/30/20 05/28/20 History hydrocodone-acetaminophen 1 - 2 tab PO Q8H PRN 05/28/20 05/28/20 History polyethylene glycol 3350 [Miralax] 17 g PO DAILY PRN 05/28/20 05/28/20 History Past Med/Surg History Medical History (Updated 05/29/20 @ 15:44 by Armando Crook MD) CAD in lower [place] artery Carotid artery disease S/P right CEA by Dr. Sheppard on 09/14/17. 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 PAD (peripheral artery disease) Peripheral vascular disease Right BKA infection Tobacco dependence Surgical History History of angioplasty of peripheral vessel L LEG left popliteal artery angioplasty and stent as left AT/peroneal/TP trunk angioplasty on 05/10/[address] Sheppard left AKA on 12/19/17 09/27/17 for angioplasty/stent of the left SFA, but noted to have a BK- popliteal occlusion (would need a left fem=>AT bypass). left common femoral endarterectomy with vein patch angioplasty and common femoral artery => anterior tibial artery bypass using non-reversed left great saphenous vein 10/20/2017. R LEG RSFA stent and, angioplasty of PT/peroneal artery 06/06/[address] Mosqueda S/P right TOMMIE/TP-trunk/peroneral/PT angioplasty by Dr. Mosqueda on 10/25/18. 02/2019 again prompted additional intervention He underwent bilateral common & external iliac artery stents (one 7 x 80 mm Everflex stent on each side) and right SFA/pop/TP-trunk angioplasty by Dr. Sheppard 04/03/19. 05/09/20 He underwent balloon angioplasty of right SFA/popliteal/TP-trunk/peroneral arteries and open amputation of the R 5th toe by Dr. Sheppard on 08/10/19. History of femoropopliteal bypass History of right below knee amputation 11/15/[address] 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 ALSO HAS SISTER WHO IS ABLE TO HELP NEEDED. Feels Safe at Home: Yes Safety Concerns: Feels Safe At This Time during the past year weight has: increased > 10 lbs Assistive Devices: None Review of Systems Review of Systems: All systems reviewed & are unremarkable except as noted in HPI & below Constitutional: + chills, + fatigue, + malaise and + anorexia (intermittent); no fever and no sweats Eyes: no diplopia and no worsening vision Ear, Nose, Mouth, Throat: no nasal congestion, no nasal discharge, no sore throat and no dysphagia Respiratory: + cough (chronic "smoker's" cough - unchanged from baseline); no dyspnea, no pain on inspiration and no wheezing Cardiovascular: + chest pain (right lower chest from fall last week) and + lightheadedness (episodes occasionally - may be positional. Fell out of wheelchair twice in the past week due to episodes of dizziness. ); no palpitations, no syncope and no edema Gastrointestinal: + constipation (occassional - uses PRN Miralax with variable results); no abdominal pain, no nausea, no vomiting, no diarrhea/loose stools and no blood in stools Genitourinary: no dysuria, no urinary frequency and no hematuria Musculoskeletal: as per Subjective / HPI; no back pain and no neck pain Integumentary: + non-healing lesions and + skin ulcer Neurologic: + falls; no seizure-like activity, no syncope, no headache(s) and no confusion Psychiatric: + abnormal sleep pattern and + irritability (occasional - relates to pain); no depression and no anxiety Physical Exam Constitutional: WD/WN, vitals as above + acute distress (appears to be in pain - unable to find a comfortable position) Eyes: + anicteric sclerae; no conjunctival abnormality Neck: trachea midline Respiratory: no respiratory distress and no labored breathing Auscultation: lungs clear to auscultation bilaterally; no rales, no rhonchi and no wheezes Cardiovascular: Rate/Rhythm: regular rate and regular rhythm Heart Sounds: no gallop, no murmur and no cardiac rub Vessels: radial pulses present Extremities: no edema tender to palpation along right lower ribs - no overlying ecchymosis Gastrointestinal (Abdomen): Inspection/Auscultation: normal bowel sounds; abdomen not distended Percussion/Palpation: abdomen soft; abdomen nontender Musculoskeletal: Head/Neck/Chest: normocephalic and head atraumatic Left AKA site well-healed and non-tender Right BKA site with dressing C/D/I - exquisitely tender to touch but no significant tenderness mid-thigh and proximal Skin: right knee with small healing abrasions - no surrounding erythema or warmth Neurologic: Speech / Cognition: normal speech Motor/Sensory: no tremor Psychiatric: A+Ox3, euthymic affect Results & Data Results & Data ([facility]) Vital Signs (Past 12 Hours) Vital Signs Temp Pulse Resp BP Pulse Ox 05/28/20 15:30 76 23 164/85 H 95 05/28/20 15:00 77 18 180/87 H 96 05/28/20 14:30 78 23 160/82 H 93 05/28/20 14:00 80 22 187/91 H 95 05/28/20 13:30 80 23 97 05/28/20 13:04 79 22 177/80 H 97 05/28/20 13:00 78 22 05/28/20 12:33 85 18 05/28/20 11:16 36.8 C 91 H 18 141/72 H 96 Laboratory Results Laboratory Results - last 24 hr 05/28/20 05/28/20 05/28/20 12:41 12:41 12:41 WBC 10.55 RBC 4.28 L Hgb 14.1 Hct 40.4 L MCV 94.4 MCH 32.9 MCHC 34.9 RDW Std Deviation 47.9 H RDW Coeff of Martin 14.0 Plt Count 302 MPV 9.6 Immature Gran % (Auto) 0.3 Neut % (Auto) 68.5 Lymph % (Auto) 21.1 Bulloch % (Auto) 8.2 Eos % (Auto) 1.5 Baso % (Auto) 0.4 Neut # (Auto) 7.22 H Lymph # (Auto) 2.23 Bulloch # (Auto) 0.87 H Eos # (Auto) 0.16 Baso # (Auto) 0.04 Immature Gran # (Auto) 0.03 H ESR 78 H Sodium 134 L Potassium 4.1 Chloride 101 Carbon Dioxide 27 Anion Gap 6.0 BUN 23 H Creatinine 1.00 Est Cr Clr Drug Dosing Not Reportable Est GFR ( Amer) 90.5 Est GFR (Non-Af Amer) 78.1 BUN/Creatinine Ratio 23.3 H Glucose 294 H Lactate Calcium 9.8 Total Bilirubin 0.4 AST 21 ALT 22 Alkaline Phosphatase 79 C-Reactive Protein 8.42 H Total Protein 8.2 Albumin 3.1 L Globulin 5.1 H Albumin/Globulin Ratio 0.6 L TSH 0.486 05/28/20 16:16 WBC RBC Hgb Hct MCV MCH MCHC RDW Std Deviation RDW Coeff of Martin Plt Count MPV Immature Gran % (Auto) Neut % (Auto) Lymph % (Auto) Bulloch % (Auto) Eos % (Auto) Baso % (Auto) Neut # (Auto) Lymph # (Auto) Bulloch # (Auto) Eos # (Auto) Baso # (Auto) Immature Gran # (Auto) ESR Sodium Potassium Chloride Carbon Dioxide Anion Gap BUN Creatinine Est Cr Clr Drug Dosing Est GFR ( Amer) Est GFR (Non-Af Amer) BUN/Creatinine Ratio Glucose Lactate 0.9 Calcium Total Bilirubin AST ALT Alkaline Phosphatase C-Reactive Protein Total Protein Albumin Globulin Albumin/Globulin Ratio TSH Diagnostic Findings Tib/Fib X-ray 05/28/20 - IMPRESSION: 1. Soft tissue swelling and small joint effusion without acute fracture. 2. No osseous erosion to suggest acute osteomyelitis. Medications Administered Discontinued Medications Vancomycin HCl 2,500 mg/ (Sodium Chloride) 550 mls @ 200 mls/hr IV NOW ONE Stop: 05/28/20 15:08 Last Infusion: 05/28/20 16:02 Dose: 0 mls/hr Documented by: [id number] Admin: 05/28/20 13:04 Dose: 200 mls/hr Documented by: [id number] Cefepime HCl (Maxipime) 2,000 mg in 20 mls @ 5 mls/min IV NOW STA; Protocol Stop: 05/28/20 12:27 Last Admin: 05/28/20 13:05 Dose: 5 mls/min Documented by: [id number] Morphine Sulfate (Morphine Sulfate 4 Mg/Ml 1 Ml Carp\\Vial) 4 mg IV NOW STA Stop: 05/28/20 11:59 Last Admin: 05/28/20 13:04 Dose: 4 mg Documented by: [id number] Morphine Sulfate (Morphine Sulfate 4 Mg/Ml 1 Ml Carp\\Vial) 4 mg IV NOW STA Stop: 05/28/20 14:44 Last Admin: 05/28/20 14:59 Dose: 4 mg Documented by: [id number] Code Status & VTE Plan VTE Prophylaxis Plan VTE Prophylaxis will be ordered: Yes Supervising Physician Co-Signing Physician Notes ATTENDING ADDENDUM : pt seen and examined , care co-ordniated with Lou Ta PA-C this is a 64 yo Male with complex past medical hx of peripheral vascular disease , CAD ,diabetic neuropathy s/p left AKA , and Right BKA with infected stump -was treated with IV ABx 2 months back , follows with ID in [place] pt was offered Right AKA multiple times in past -for recurrent , non healing BKA stump infection , osteomyelitis -pt refused in past was seen at Wound clinic -infected area on rt BKA stump appears to look worse ,having significant pain -agreeable for AKA -pt was sent to ER Vascular surgery Dr Myles contacted by ER physician , pt will undergo AKA Vitals : as per EMR Physical exam : brief: Gen : chronically ill appearing , in distress due to pain on rt infected BKA stump area lungs: CTA Cardio : regular S1/S2 Ext : s/p left AKA ; well healed stump Rt BKA stump; open wound noted with surrounding erythema , + tenderness A/P : Infected rt BKA stump wound : chronic with possible underlying osteomyelitis MRI of lower ext ordered - IV Abx with Vanco /Cefepime wound culture ordered vascular surgery consult for AKA -case d/w Dr Myles please refer to further documentation by Lou Ta PA-C for discussion of other chronic issues Ingrid Teran MD (1) DM type 2 (diabetes mellitus, type 2) Diabetes mellitus complication detail: with unspecified neuropathy Diabetes mellitus complication status: with neurologic complications 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
--- NOTE | 2020-05-28 16:43 | Communication Note ---
Date of Service: May 28, 2020 Attending addendum : 58 yo make with severe peripheral vascular disease /multiple co-morbidities admitted with infected Rt BKA stump needs Above knee amputation . Vascular surgery Dr Myles consulted, case d/w Dr Myles , pt will be seen by Vascular surgery team in am plan for possible surgery on Tuesday . will cont to hold Asa and Plavix -pre op Sub q heparin for DVT prophylaxis will need to be on hold 12 hrs before surgery Ingrid Teran MD
[2020-05-28] MEDS ORDERED: PHARMACY GLYCEMIC MGMT CONSULT PRN (18:06)
[2020-05-28] MEDS ORDERED: CARBOHYDRATES FOR HYPOGLYCEMIA PO PRN (18:15)
[2020-05-28] MEDS ORDERED: GLUCOSE 10 TABS/TUBE PO PRN (18:15)
[2020-05-28] MEDS ORDERED: DEXTROSE 50% 50 ML SYRINGE IV PRN (18:15)
[2020-05-28] MEDS ORDERED: GLUCAGON FOR INJ 1 MG VIAL IM PRN (18:15)
[2020-05-28] MEDS ORDERED: GLUCOSE 40% GEL 15 GM TUBE PO PRN (18:15)
[2020-05-28] MEDS ORDERED: oxyCODONE HCL IR 5 MG TAB (IMMEDIATE RELEASE) PO PRN (18:18)
[2020-05-28] MEDS ORDERED: PHARMACY GLYCEMIC MGMT CONSULT STA (18:18)
[2020-05-28] MEDS: HYDROmorphone INJ 2 MG/ML SYR/VIAL IV PRN ×2 (18:25→21:59)
--- NOTE | 2020-05-28 18:28 | Magnetic Resonance Report ---
MRI OF THE RIGHT LOWER LEG WITHOUT CONTRAST CLINICAL HISTORY: rt infected BKA stump COMPARISON STUDY: MRI of the right lower leg February 29, 2020. Right tibia and fibula radiographs per formed earlier today. TECHNIQUE: Utilizing a 1.5 Dania magnet and dedicated coil, multiplanar, multiecho imaging of the rig ht lower leg was performed without intravenous contrast. FINDINGS: This exam is significantly compromised by motion artifact as well as susceptibility artifac t from the total right knee arthroplasty. Postoperative findings from a right below-knee amputation a re noted. There is mild increased T2 signal and decreased T1 signal within the distal remaining porti on of the tibia. This has slightly decreased compared to exam of February 29, 2020. There is no marrow edema within the remaining portion of the right fibula. No new sites of bony edema are present. Exten sive subcutaneous and muscular edema of the adjacent soft tissues is noted. A 2.6 x 1.1 cm fluid urbano ection within the proximal tibialis anterior is similar to prior exam. No new fluid collections are p resent. A wound at the level of the stump is noted. IMPRESSION: 1. Exam significantly compromised by motion artifact and susceptibility artifact from the total right knee arthroplasty. 2. Postoperative findings consistent with a right below-knee amputation with wound and extensive soft tissue edema. This favors cellulitis. No significant change in a 2.6 x 1.1 cm fluid collection withi n the proximal tibialis anterior since MRI of February 29, 2020. Sterility cannot be assessed by MRI. 3. Mild marrow signal abnormality within the distal remaining portion of the right tibia which has sl ightly decreased since MRI of February 29, 2020. This could reflect chronic residual osteomyelitis. No marrow edema with remaining portions of the right fibula. ACT 112: Negative or not required by law. Electronically signed by: Mc Payne M.D. 05/28/2020 6:27 PM
[2020-05-28] MEDS ORDERED: INSULIN GLARGINE SOLOSTAR 100 UNITS/ML 3 ML PEN SC ONE (19:30)
[2020-05-28] MEDS: INSULIN ASPART 100 UNITS/ML 3 ML PEN SC SCH (21:44)
[2020-05-28] MEDS: GABAPENTIN 300 MG CAP PO SCH (21:51)
[2020-05-28] MEDS: CEFEPIME 2,000 MG in SYRINGE 0 ML IV SCH (21:51)
[2020-05-28] MEDS: HEPARIN SOD 5,000 UNIT/0.5 ML VIAL SQ SCH (21:52)
--- NOTE | 2020-05-28 23:08 | Pharmacy Report ---
Pharmacy Abx Dose Short Note - Date of Service May 28, 2020 - Assessment & Plan Assessment 64 year old M receiving empiric vancomycin and cefepime IV for treatment of infected right BKA wound, osteo: * h/o left AKA and right BKA * Per H&P; pt was seen by ID on 05/22 who recommended an MRI to evaluate for ongoing infection (which pt has not yet had). He was seen by wound care today who were concerned about recurrent osteomyelitis and referred pt to [facility] for admission through the ED. * Vascular surgery consulted for possible right AKA Plan Vancomycin * Pt received 2500 mg IV loading dose in ED * Will start maintenance dose of 1250 mg IV q12h (12.6 mg/kg based on actual body weight) * Calculated amputation adjusted CrCL: estimate T1/2 ~11 hours * Goal trough level: 15 mcg/mL * Trough level ordered for 05/29 @ 2330. Level drawn early due to estimations of amputation adjusted body weight and amputation adjusted CrCl. Cefepime - 2g IV q8 hours (h/o recent Pseudomonas - right leg culture) Pharmacy will continue to follow and will adjust dose/frequency as necessary. Thank you.
[2020-05-28] MEDS: VANCOMYCIN HCL 1,250 MG in SODIUM CHLORIDE 0.9% 250 ML IV SCH (23:32)
[2020-05-29] MEDS: HYDROmorphone INJ 2 MG/ML SYR/VIAL IV PRN ×5 (01:49→18:25)
[2020-05-29] MEDS: INSULIN ASPART 100 UNITS/ML 3 ML PEN SC SCH ×6 (02:06→20:22)
[2020-05-29] MEDS: CEFEPIME 2,000 MG in SYRINGE 0 ML IV SCH ×3 (05:43→20:21)
[2020-05-29] MEDS: HEPARIN SOD 5,000 UNIT/0.5 ML VIAL SQ SCH ×3 (05:43→20:21)
--- NOTE | 2020-05-29 07:37 | XRay Report ---
XR chest 2V PA/lateral CLINICAL HISTORY: Chest Pain, possible surgery ATYPICAL CHEST PAIN COMPARISON STUDY: 02/25/2020 FINDINGS: The heart is mildly enlarged. There is no failure. There is no focal pulmonary consolidatio n. There are no pleural effusions. There is no pneumothorax. Postsurgical changes are present within the thoracolumbar spine.[ IMPRESSION: No active disease in the chest. ACT 112: Negative or not required by law. Electronically signed by: Herve Pastrana M.D. 05/29/2020 7:36 AM
[2020-05-29 07:41] LABS: BUN Creatinine Ratio 21.1 (10-20); Calcium 9.2 mg/dl (8.5-10.1); Est GFR (African American) 82.5; Est GFR (Non-African American) 71.1; Potassium 4.3 mmol/L (3.5-5.1)
[2020-05-29 07:55] LABS: Hematocrit (blood only) 38.9 % (42-52); Hemoglobin 12.8 g/dL (14.0-18.0); Mean Corpuscular Hemoglobin 32.1 pg (25-34); Mean Corpuscular Hgb Conc 32.9 g/dL (32-36); Mean Corpuscular Volume 97.5 fL (80-100); Mean Platelet Volume 9.6 fL (7.4-10.4); Platelet Count 314 K/uL (130-400); Platelet Estimate Normal (Normal); RDW Coefficient of Variation 14.2 % (11.5-14.5); RDW Standard Deviation 50.9 fL (36.4-46.3); Red Blood Count 3.99 M/uL (4.7-6.1)
[2020-05-29] MEDS: GABAPENTIN 300 MG CAP PO SCH ×3 (08:44→20:21)
--- NOTE | 2020-05-29 08:57 | XRay Report ---
RIGHT-SIDED RIB SERIES CLINICAL HISTORY: Fall. Right-sided chest wall pain. FINDINGS: 4 views from a right-sided rib series are correlated with chest radiographs dated 0. The skeletal structures are osteopenic. There is no radiographic evidence of acute/displaced right -sided rib fracture on the rib series. Fusion hardware is seen at the thoracolumbar junction. The rig ht lung parenchyma is clear as imaged. The heart is enlarged. IMPRESSION: There is no radiographic evidence of acute/displaced right-sided rib fracture on the rib series. Electronically signed by: Leif Ramires M.D. 05/29/2020 8:56 AM
[2020-05-29] MEDS ORDERED: LANTUS PER UNIT CHARGE SQ SCH (09:00)
--- NOTE | 2020-05-29 10:16 | CT Scan Report ---
CT SCAN OF THE ABDOMEN AND PELVIS WITHOUT IV CONTRAST CLINICAL HISTORY: Right lower quadrant abdominal pain. COMPARISON STUDY: Abdominal CT dated 12/30/2017. TECHNIQUE: CT scan of the abdomen and pelvis is performed from the lung bases to the proximal femora. Images are reviewed in the axial, sagittal, and coronal planes. IV contrast was not administered for this examination as per the referring clinician. Note that the examination was performed in signific antly suboptimal fashion without oral and IV contrast. A dose lowering technique was utilized adherin g to the principles of ALARA. The Examination is degraded by streak artifact from extensive metallic spinal orthopedic hardware. CT DOSE: 760.62 mGy.cm FINDINGS: Lung bases: The heart is top normal in size and without pericardial effusion. The mitral annulus is d ensely calcified. There is a small hiatal hernia. Chronic interstitial change is seen at both lung ba ses. Calcified granulomas are noted at the right lung base. There is no airspace consolidation or ple ural effusion. Liver: The unenhanced liver is normal in size, contour, and attenuation. There is no intrahepatic pasha iary ductal dilatation. Gallbladder: There are numerous small calcified gallstones with no CT evidence of acute cholecystitis . Spleen: Normal in size and attenuation. Pancreas: The unenhanced pancreas is mildly atrophic and grossly unremarkable. Adrenal glands: Unremarkable. Kidneys: The unenhanced kidneys are normal in size and without hydronephrosis. There are no renal tanja culi identified. There is no evidence of contour deforming renal mass lesion. Abdominal vasculature: The abdominal aorta is normal in course and caliber noting advanced atheroscle rotic calcification. Iliac artery stents are seen bilaterally. Stents are also seen in the femoral ar teries bilaterally. Stents are also seen within the partially visualized femoral arteries. Bowel: There is no bowel obstruction. Mild fecal retention is seen throughout the colon. The appendix is well-visualized and normal. Peritoneum: There is no intraperitoneal free air or abdominal ascites. There is a fat-containing umbi lical hernia. Lymphadenopathy: None. Pelvic viscera: The prostate gland is mildly enlarged and heterogeneous. The bladder wall is thickene d and trabeculated indicating chronic outlet obstruction. There are bilateral fat-containing inguinal hernias. The vas deferens are densely calcified. Skeletal structures: The skeletal structures are osteopenic. There is extensive postlaminectomy corley e identified in the thoracolumbar spine with multilevel fusion and spinal rods in place. No lytic or blastic lesions are seen. IMPRESSION: 1. There are no acute infectious or inflammatory findings in the abdomen or pelvis. 2. Cholelithiasis. 3. Advanced atherosclerotic vascular disease. 4. Prostatomegaly with evidence of chronic bladder outlet obstruction. 5. Additional findings as above. ACT 112: Negative or not required by law. Electronically signed by: Leif Ramires M.D. 05/29/2020 10:15 AM
--- NOTE | 2020-05-29 10:27 | Electrocardiogram Report ---
Test Reason : Blood Pressure : / mmHG Vent. Rate : 084 BPM Atrial Rate : 084 BPM P-R Int : 192 ms QRS Dur : 106 ms QT Int : 380 ms P-R-T Axes : 054 067 -30 degrees QTc Int : 449 ms Poor data quality, interpretation may be adversely affected Normal sinus rhythm Nonspecific ST abnormality Abnormal QRS-T angle, consider primary T wave abnormality Abnormal ECG When compared with ECG of 26-FEB-2020 07:56, No significant change Confirmed by León Villarreal ([id number]) on 05/29/2020 10:26:54 AM Referred By: Tray Honeycutt Confirmed By:León Villarreal
[2020-05-29] MEDS: VANCOMYCIN HCL 1,250 MG in SODIUM CHLORIDE 0.9% 250 ML IV SCH (12:28)
--- NOTE | 2020-05-29 14:10 | Consultation ---
Date of Consultation May 29, 2020 Assessment & Plan (1) Right BKA infection: RLE BKA infected. Pt discussed with Dr Myles, recommends pt undergo RLE AKA in OR tomorrow. Pt agreeable. History of Present Illness Reason for Consultation: infected BKA Attending Physician: Andrew Brown MD History of Present Illness 64 yo m with multiple medical problems, including CAD, neuropathy, JOSIE, DMII, GERD, PAD, dyslipidemia, emphysema, CVA, hx of LLE AKA, seen in consultation today for infected RLE BKA. Pt states he had RLE BKA d/t nonhealing wounds/infection in R foot in October 2019, which has never healed properly. Has had multiple surgeries in attempt to keep the BKA, but it continues to not heal and he is now agreeable to AKA. Admits pain in RLE. Denies SOLOMON, fever, chest pain, SOB, abd pain, N/V, other complaints. Pt with hx of RLE TKA. Allergies Allergy/AdvReac Type Severity Reaction Status Date / Time No Known Allergies Allergy Verified 05/28/20 12:18 Home Medications Home Medications Medication Instructions Recorded Confirmed Type aspirin 81 mg tablet,delayed 81 mg PO DAILY 04/30/20 05/28/20 History release clopidogrel 75 mg tablet 75 mg PO DAILY 04/30/20 05/28/20 History gabapentin 300 mg capsule 300 mg PO TID 04/30/20 05/28/20 History insulin aspart U-100 100 unit/mL 1 sliding scale dose SUBCUT 04/30/20 05/28/20 History subcutaneous solution USEASDIRECTD insulin glargine 100 unit/mL 60 unit SUBCUT DAILY ml 04/30/20 05/28/20 History subcutaneous solution oxycodone 10 mg tablet 10 mg PO Q6H PRN 04/30/20 05/28/20 History hydrocodone-acetaminophen 1 - 2 tab PO Q8H PRN 05/28/20 05/28/20 History polyethylene glycol 3350 [Miralax] 17 g PO DAILY PRN 05/28/20 05/28/20 History Patient History Medical History CAD in [place] artery Carotid artery disease S/P right CEA by Dr. Sheppard on 09/14/17. 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 PAD (peripheral artery disease) Peripheral vascular disease Tobacco dependence Surgical History History of angioplasty of peripheral vessel L LEG left popliteal artery angioplasty and stent as left AT/peroneal/TP trunk angioplasty on 05/10/[address] Sheppard left AKA on 12/19/17 09/27/17 for angioplasty/stent of the left SFA, but noted to have a BK- popliteal occlusion (would need a left fem=>AT bypass). left common femoral endarterectomy with vein patch angioplasty and common femoral artery => anterior tibial artery bypass using non-reversed left great saphenous vein 10/20/2017. R LEG RSFA stent and, angioplasty of PT/peroneal artery 06/06/[address] Mosqueda S/P right TOMMIE/TP-trunk/peroneral/PT angioplasty by Dr. Mosqueda on 10/25/18. 02/2019 again prompted additional intervention He underwent bilateral common & external iliac artery stents (one 7 x 80 mm Everflex stent on each side) and right SFA/pop/TP-trunk angioplasty by Dr. Sheppard 04/03/19. 05/09/20 He underwent balloon angioplasty of right SFA/popliteal/TP-trunk/peroneral arteries and open amputation of the R 5th toe by Dr. Sheppard on 08/10/19. History of femoropopliteal bypass History of right below knee amputation 11/15/[address] Sheppard History of spinal fusion "05/[address] Reeder" Hx of AKA (above knee amputation) L 12/2018 Social History Smoking Status: Current every day smoker Tobacco Type: Cigarettes packs per day: 1; Years Smoked: 50; Cigarettes Per Day: pack; Second Hand Exposure: No; Do You Dip or Chew Tobacco: No; Hx Alcohol Use: Yes Alcohol type: beer Alcohol Intake Frequency: 2-4 x/Month Hx Substance Use: No Preferred Language: Khmer Communication Ability: Effective Paramedic Supervisor Required: No Beliefs That Will Affect Care: None marital status: Current Living Situation: Spouse Current Living Situation Comment: GENIE LIVES WITH PT current occupational status: retired How many Children do You have: 1 How many Children do You have Comment: LOCAL SON THAT IS ABLE TO HELP. ALSO HAS SISTER WHO IS ABLE TO HELP NEEDED. Feels Safe at Home: Yes Safety Concerns: Feels Safe At This Time during the past year weight has: increased > 10 lbs Assistive Devices: None Review of Systems Review of Systems: All systems reviewed & are unremarkable except as noted in HPI & below Physical Exam Constitutional: WD/WN, vitals as above cooperative and comfortable; not in distress Eyes: PERRL, conjunctivae normal, anicteric sclerae ENMT: Ears: no hearing impairment Neck: trachea midline Respiratory: normal respiratory effort, lungs clear to auscultation Auscultation: + diminished lung sounds Cardiovascular: RRR, no murmur, no edema Vessels: femoral pulses present; + abnormal peripheral pulses (RLE BKA, LLE AKA) Extremities: normal capillary refill (fingers) Gastrointestinal (Abdomen): normal bowel sounds, soft, nontender, no hepatosplenomegaly Musculoskeletal: Extremities: strength 5/5 throughout Skin: + wound (RLE BKA with dark red tissue noted in large open wound) Neurologic: moves all extremities; no focal motor deficits and not confused Psychiatric: A+Ox3, euthymic affect Results & Data ([facility]) Vital Signs (Past 12 Hours) Vital Signs Temp Pulse Resp BP Pulse Ox 05/29/20 11:19 36.5 C 88 18 95/65 L 95 05/29/20 07:57 36.8 C 84 18 142/69 H 96 05/29/20 04:00 37.2 C 89 19 129/74 92
--- NOTE | 2020-05-29 14:24 | Pharmacy Report ---
Glycemic Control Consultation - Date of Service May 29, 2020 - Scope Scope: Glycemic Pharmacist consulted for glycemic control and to write orders per [facility] inpatient glycemic control protocol. - Objective Weight: 99 kg Accuchecks BSG (last 24hrs): 05/28/20 05/29/20 05/29/20 20:55 04:17 06:36 Glucose 199 H POC Glucose 168 H 205 H 05/29/20 05/29/20 05/29/20 07:52 11:12 12:15 Glucose POC Glucose 199 H 188 H 193 H Laboratory Data (last 24hrs): 05/29/20 06:36 Potassium 4.3 Carbon Dioxide 28 Anion Gap 3.0 Creatinine 1.08 Est Cr Clr Drug Dosing 82.0 - Recent Pertinent Medications Outpatient Anti-diabetic Regimen: * Lantus 60 units SC HS + Novolog SSI * A1c = 10% (02/26/2020) * Repeat pending Risk Factors for Insulin Resistance: * Infection: * Vanco + Cefepime for R knee infxn * Diet: * T2DM - Assessment & Plan Assessment & Plan: ASSESSMENT: * 64 yo M admitted secondary to right below knee amputation infection. Pharmacy is consulted for inpatient glycemic management. * Patient received 30 units of lantus last evening (half of home dose) for a BSG of 168 mg/dL. * Fasting BSG was 199 mg/dL this AM * Patient will be NPO at midnight for a R AKA tomorrow morning. * He has not eaten anything as of yet today and he is still hyperglycemic; therefore, will increase basal dose slightly tonight * Continue with current Novolog parameters PLAN FOR INPATIENT GLYCEMIC CONTROL: * Basal insulin - increased * Lantus 35 units SQ HS * Bolus insulin - no change * NovoLog per scale ACHS or Q6hrs while NPO * Goal Range: Low 110 mg/dL - High 140 mg/dL * Correction Factor: 25 mg/dL/unit * Nutritional / Prandial insulin per carb ratio of 1 unit per 9 grams CHO consumed * Please note that the plan above was derived based on current level of insulin resistance and hospital stress. These recommendations are appropriate for inpatient admission only. Plan of care upon discharge will need to be reassessed to avoid potential outpatient hypo/hyperglycemia. Thank you.
--- NOTE | 2020-05-29 15:35 | Hospitalist Consultation ---
Date of Consultation May 29, 2020 Assessment & Plan (1) Right BKA infection: This is a 64-year-old male with a right infected BKA. Patient will benefit from a right AKA. Awaiting vascular evaluation. Continue antibiotics per ID. We will continue to follow. Please call with any questions. History of Present Illness Reason for Consultation: Infected right BKA Attending Physician: Andrew Brown MD History of Present Illness This is a 64-year-old male who is known to the wound clinic with past medical history of right BKA, diabetic peripheral angiopathy, diabetic neuropathy, CAD, emphysema, peripheral arterial disease, dyslipidemia, GERD, type 2 diabetes and nicotine dependence. Patient was seen in the office for follow-up of his chronic nonhealing right BKA. Patient was complaining of increased pain. He did already been recommended that he undergo AKA and had been refusing. Patient does not want to go to [facility] to have this done. Due to increased pain and erythema patient was sent to the emergency department for IV antibiotics and further evaluation. Patient was admitted. Dr. Myles is agreeable to see the patient in consult and tentative plan is for right AKA tomorrow afternoon. Allergies Allergy/AdvReac Type Severity Reaction Status Date / Time No Known Allergies Allergy Verified 05/28/20 12:18 Home Medications Home Medications Medication Instructions Recorded Confirmed Type aspirin 81 mg tablet,delayed 81 mg PO DAILY 04/30/20 05/28/20 History release clopidogrel 75 mg tablet 75 mg PO DAILY 04/30/20 05/28/20 History gabapentin 300 mg capsule 300 mg PO TID 04/30/20 05/28/20 History insulin aspart U-100 100 unit/mL 1 sliding scale dose SUBCUT 04/30/20 05/28/20 History subcutaneous solution USEASDIRECTD insulin glargine 100 unit/mL 60 unit SUBCUT DAILY ml 04/30/20 05/28/20 History subcutaneous solution oxycodone 10 mg tablet 10 mg PO Q6H PRN 04/30/20 05/28/20 History hydrocodone-acetaminophen 1 - 2 tab PO Q8H PRN 05/28/20 05/28/20 History polyethylene glycol 3350 [Miralax] 17 g PO DAILY PRN 05/28/20 05/28/20 History Patient History Medical History CAD in [place] artery Carotid artery disease S/P right CEA by Dr. Sheppard on 09/14/17. 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 PAD (peripheral artery disease) Peripheral vascular disease Tobacco dependence Surgical History History of angioplasty of peripheral vessel L LEG left popliteal artery angioplasty and stent as left AT/peroneal/TP trunk angioplasty on 05/10/[address] Sheppard left AKA on 12/19/17 09/27/17 for angioplasty/stent of the left SFA, but noted to have a BK- popliteal occlusion (would need a left fem=>AT bypass). left common femoral endarterectomy with vein patch angioplasty and common femoral artery => anterior tibial artery bypass using non-reversed left great saphenous vein 10/20/2017. R LEG RSFA stent and, angioplasty of PT/peroneal artery 06/06/[address] Mosqueda S/P right TOMMIE/TP-trunk/peroneral/PT angioplasty by Dr. Mosqueda on 10/25/18. 02/2019 again prompted additional intervention He underwent bilateral common & external iliac artery stents (one 7 x 80 mm Everflex stent on each side) and right SFA/pop/TP-trunk angioplasty by Dr. Sheppard 04/03/19. 05/09/20 He underwent balloon angioplasty of right SFA/popliteal/TP-trunk/peroneral arteries and open amputation of the R 5th toe by Dr. Sheppard on 08/10/19. History of femoropopliteal bypass History of right below knee amputation 11/15/[address] Sheppard History of spinal fusion "05/[address] Reeder" Hx of AKA (above knee amputation) L 12/2018 Social History Smoking Status: Current every day smoker Tobacco Type: Cigarettes packs per day: 1; Years Smoked: 50; Cigarettes Per Day: pack; Second Hand Exposure: No; Do You Dip or Chew Tobacco: No; Hx Alcohol Use: Yes Alcohol type: beer Alcohol Intake Frequency: 2-4 x/Month Hx Substance Use: No Preferred Language: Japanese Communication Ability: Effective System Architect Required: No Beliefs That Will Affect Care: None marital status: Current Living Situation: Spouse Current Living Situation Comment: GENIE LIVES WITH PT current occupational status: retired How many Children do You have: 1 How many Children do You have Comment: LOCAL SON THAT IS ABLE TO HELP. ALSO HAS SISTER WHO IS ABLE TO HELP NEEDED. Feels Safe at Home: Yes Safety Concerns: Feels Safe At This Time during the past year weight has: increased > 10 lbs Assistive Devices: None Review of Systems Review of Systems: All systems reviewed & are unremarkable except as noted in HPI & below Physical Exam Physical Exam: Temp Pulse Resp BP Pulse Ox 37.4 C 93 H 20 128/74 91 05/29/20 15:05 05/29/20 15:05 05/29/20 15:05 05/29/20 15:05 05/29/20 15:05 Constitutional: WD/WN, vitals as above cooperative and comfortable; not in distress Eyes: PERRL, conjunctivae normal, anicteric sclerae ENMT: Ears: no hearing impairment Neck: trachea midline Respiratory: normal respiratory effort, lungs clear to auscultation Auscultation: + diminished lung sounds Cardiovascular: RRR, no murmur, no edema Vessels: femoral pulses present; + abnormal peripheral pulses (RLE BKA, LLE AKA) Extremities: normal capillary refill (fingers) Gastrointestinal (Abdomen): normal bowel sounds, soft, nontender, no hepatosplenomegaly Musculoskeletal: Extremities: strength 5/5 throughout Skin: + wound (RLE BKA with dark red tissue noted in large open wound) Neurologic: moves all extremities; no focal motor deficits and not confused Psychiatric: A+Ox3, euthymic affect Results & Data Results & Data ([facility]) Vital Signs (Past 12 Hours) Vital Signs Temp Pulse Resp BP Pulse Ox 05/29/20 15:05 37.4 C 93 H 20 128/74 91 05/29/20 11:19 36.5 C 88 18 95/65 L 95 05/29/20 07:57 36.8 C 84 18 142/69 H 96 05/29/20 04:00 37.2 C 89 19 129/74 92 Laboratory Results 05/29/20 05/29/20 05/29/20 Range/Units 12:15 11:12 07:52 WBC (4.8-10.8) K/uL RBC (4.7-6.1) M/uL Hgb (14.0-18.0) g/dL Hct (42-52) % MCV (80-100) fL MCH (25-34) pg MCHC (32-36) g/dL RDW Std Deviation (36.4-46.3) fL RDW Coeff of Martin (11.5-14.5) % Plt Count (130-400) K/uL MPV (7.4-10.4) fL Platelet Estimate (Normal) Sodium (136-145) mmol/L Potassium (3.5-5.1) mmol/L Chloride (98-107) mmol/L Carbon Dioxide (21-32) mmol/L Anion Gap (3-11) BUN (7-18) mg/dl Creatinine (0.6-1.4) mg/dl Est Cr Clr Drug Dosing ml/min Est GFR ( Amer) Est GFR (Non-Af Amer) BUN/Creatinine Ratio (10-20) Glucose (70-99) mg/dl POC Glucose 193 H 188 H 199 H (70-99) mg/dl Lactate (0.4-2.0) mmol/L Calcium (8.5-10.1) mg/dl Nasal Screen MRSA (PCR) (Negative) COVID-19 Eval Order COVID-19 PCR (Negative) 05/29/20 05/29/20 05/29/20 Range/Units 06:36 06:36 04:17 WBC 10.10 (4.8-10.8) K/uL RBC 3.99 L (4.7-6.1) M/uL Hgb 12.8 L (14.0-18.0) g/dL Hct 38.9 L (42-52) % MCV 97.5 (80-100) fL MCH 32.1 (25-34) pg MCHC 32.9 (32-36) g/dL RDW Std Deviation 50.9 H (36.4-46.3) fL RDW Coeff of Martin 14.2 (11.5-14.5) % Plt Count 314 (130-400) K/uL MPV 9.6 (7.4-10.4) fL Platelet Estimate Normal (Normal) Sodium 137 (136-145) mmol/L Potassium 4.3 (3.5-5.1) mmol/L Chloride 106 (98-107) mmol/L Carbon Dioxide 28 (21-32) mmol/L Anion Gap 3.0 (3-11) BUN 23 H (7-18) mg/dl Creatinine 1.08 (0.6-1.4) mg/dl Est Cr Clr Drug Dosing 82.0 ml/min Est GFR ( Amer) 82.5 Est GFR (Non-Af Amer) 71.1 BUN/Creatinine Ratio 21.1 H (10-20) Glucose 199 H (70-99) mg/dl POC Glucose 205 H (70-99) mg/dl Lactate (0.4-2.0) mmol/L Calcium 9.2 (8.5-10.1) mg/dl Nasal Screen MRSA (PCR) (Negative) COVID-19 Eval Order COVID-19 PCR (Negative) 05/28/20 05/28/20 05/28/20 Range/Units 22:30 22:30 22:30 WBC (4.8-10.8) K/uL RBC (4.7-6.1) M/uL Hgb (14.0-18.0) g/dL Hct (42-52) % MCV (80-100) fL MCH (25-34) pg MCHC (32-36) g/dL RDW Std Deviation (36.4-46.3) fL RDW Coeff of Martin (11.5-14.5) % Plt Count (130-400) K/uL MPV (7.4-10.4) fL Platelet Estimate (Normal) Sodium (136-145) mmol/L Potassium (3.5-5.1) mmol/L Chloride (98-107) mmol/L Carbon Dioxide (21-32) mmol/L Anion Gap (3-11) BUN (7-18) mg/dl Creatinine (0.6-1.4) mg/dl Est Cr Clr Drug Dosing ml/min Est GFR ( Amer) Est GFR (Non-Af Amer) BUN/Creatinine Ratio (10-20) Glucose (70-99) mg/dl POC Glucose (70-99) mg/dl Lactate (0.4-2.0) mmol/L Calcium (8.5-10.1) mg/dl Nasal Screen MRSA (PCR) Negative (Negative) COVID-19 Eval Order Covid19 Done at [facility] COVID-19 PCR NEGATIVE (Negative) 05/28/20 05/28/20 Range/Units 20:55 16:16 WBC (4.8-10.8) K/uL RBC (4.7-6.1) M/uL Hgb (14.0-18.0) g/dL Hct (42-52) % MCV (80-100) fL MCH (25-34) pg MCHC (32-36) g/dL RDW Std Deviation (36.4-46.3) fL RDW Coeff of Martin (11.5-14.5) % Plt Count (130-400) K/uL MPV (7.4-10.4) fL Platelet Estimate (Normal) Sodium (136-145) mmol/L Potassium (3.5-5.1) mmol/L Chloride (98-107) mmol/L Carbon Dioxide (21-32) mmol/L Anion Gap (3-11) BUN (7-18) mg/dl Creatinine (0.6-1.4) mg/dl Est Cr Clr Drug Dosing ml/min Est GFR ( Amer) Est GFR (Non-Af Amer) BUN/Creatinine Ratio (10-20) Glucose (70-99) mg/dl POC Glucose 168 H (70-99) mg/dl Lactate 0.9 (0.4-2.0) mmol/L Calcium (8.5-10.1) mg/dl Nasal Screen MRSA (PCR) (Negative) COVID-19 Eval Order COVID-19 PCR (Negative) Diagnostic Findings MRI right leg 2.6 x 1.1 cm fluid collection within the proximal tibialis anterior since MRI of February 29, 2020. Stability cannot be assessed by MRI. My marrow signal abnormality within the distal remaining portion of the right tibia which is slightly decreased since MRI of February 29, 2020. This could relate flat chronic residual osteomyelitis. PG Care Time/CCT Total # of Minutes Spent Total Time Spent with Patient: Total time spent is greater than 50% in coordination of care (as documented) at patient's floor/unit and/or counseling patient: Coding Level of Care Code 76752 Inpt Consult Level 2 Diagnoses 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
--- NOTE | 2020-05-29 15:45 | Anesthesiology Consultation ---
Date of Service May 29, 2020 Assessment & Plan (1) Encounter for pre-operative examination: Chart Review Chart Review: Acceptable Risk for Surgery and Patient NOT seen in Pre Admission Testing Covid screen 05/28/2020 was NEGATIVE. Patient has type and crossmatch ordered. Appears appropriately optimized for urgent surgery. Consults Requested none History Surgery Operation Date: 05/30/20 13:50 Proposed Procedures p Right Above Knee Amputation - Syed Myles MD Height/Weight Height: 6 ft Weight: 99 kg Allergies Allergy/AdvReac Type Severity Reaction Status Date / Time No Known Allergies Allergy Verified 05/28/20 12:18 Medications Home Medications Medication Instructions Recorded Confirmed Last Taken aspirin 81 mg tablet,delayed 81 mg PO DAILY 04/30/20 05/28/20 05/27/20 release clopidogrel 75 mg tablet 75 mg PO DAILY 04/30/20 05/28/20 05/27/20 gabapentin 300 mg capsule 300 mg PO TID 04/30/20 05/28/20 05/27/20 insulin aspart U-100 100 unit/mL 1 sliding scale dose SUBCUT 04/30/20 05/28/20 05/27/20 subcutaneous solution USEASDIRECTD insulin glargine 100 unit/mL 60 unit SUBCUT DAILY ml 04/30/20 05/28/20 05/27/20 subcutaneous solution oxycodone 10 mg tablet 10 mg PO Q6H PRN 04/30/20 05/28/20 05/27/20 hydrocodone-acetaminophen 1 - 2 tab PO Q8H PRN 05/28/20 05/28/20 Unknown polyethylene glycol 3350 [Miralax] 17 g PO DAILY PRN 05/28/20 05/28/20 Unknown Active Medications Generic Name Dose Route Start Last Admin Trade Name Freq PRN Reason Stop Dose Admin Gabapentin 300 mg 05/28/20 21:00 05/29/20 14:23 Gabapentin 300 Mg Cap PO 06/27/20 20:59 300 mg TID VANDANA Administration Heparin Sodium (Porcine) 7,500 units 05/28/20 22:00 05/29/20 14:23 Heparin Sod 5,000 Unit/0.5 Ml Vial SQ 06/27/20 21:59 7,500 units Q8 VANDANA Administration Hydromorphone HCl 2 mg 05/29/20 09:31 05/29/20 14:22 Hydromorphone Inj 2 Mg/Ml Syr/Vial IV 06/11/20 16:16 2 mg Q3H PRN Administration Pain Cefepime HCl 2,000 mg/ Syringe 20 mls @ 5 mls/min 05/28/20 22:00 05/29/20 14:22 IV 07/09/20 13:59 5 mls/min Q8H VANDANA Administration Protocol Vancomycin HCl 1,250 mg/ 275 mls @ 200 mls/hr 05/29/20 00:00 05/29/20 14:13 Sodium Chloride IV 07/09/20 11:59 Infused Q12H VANDANA Infusion Protocol Insulin Aspart 0 units 05/28/20 19:30 05/29/20 12:30 Insulin Aspart 100 Units/Ml 3 Ml Pen SC 06/27/20 19:29 3 units ACHS VANDANA Administration Protocol Oxycodone HCl 10 mg 05/28/20 18:18 05/29/20 05:18 Oxycodone Hcl Ir 5 Mg Tab (Immediate Release) PO 06/11/20 18:17 10 mg Q6H PRN Administration Pain Past Medical History Medical History (Updated 05/29/20 @ 15:44 by Armando Crook MD) CAD in [place] artery Carotid artery disease S/P right CEA by Dr. Sheppard on 09/14/17. 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 PAD (peripheral artery disease) Peripheral vascular disease Right BKA infection Tobacco dependence Past Surgical History Surgical History History of angioplasty of peripheral vessel L LEG left popliteal artery angioplasty and stent as left AT/peroneal/TP trunk angioplasty on 05/10/[address] Sheppard left AKA on 12/19/17 09/27/17 for angioplasty/stent of the left SFA, but noted to have a BK- popliteal occlusion (would need a left fem=>AT bypass). left common femoral endarterectomy with vein patch angioplasty and common femoral artery => anterior tibial artery bypass using non-reversed left great saphenous vein 10/20/2017. R LEG RSFA stent and, angioplasty of PT/peroneal artery 06/06/[address] Mosqueda S/P right TOMMIE/TP-trunk/peroneral/PT angioplasty by Dr. Mosqueda on 10/25/18. 02/2019 again prompted additional intervention He underwent bilateral common & external iliac artery stents (one 7 x 80 mm Everflex stent on each side) and right SFA/pop/TP-trunk angioplasty by Dr. Sheppard 04/03/19. 05/09/20 He underwent balloon angioplasty of right SFA/popliteal/TP-trunk/peroneral arteries and open amputation of the R 5th toe by Dr. Sheppard on 08/10/19. History of femoropopliteal bypass History of right below knee amputation 11/15/[address] Sheppard History of spinal fusion "05/[address] Reeder" Hx of AKA (above knee amputation) L 12/2018 Social History Smoking Status: Current every day smoker tobacco type: cigarettes Smoking cigarettes per day: pack Do You Dip or Chew Tobacco: No Hx Alcohol Use: Yes Alcohol type: beer alcohol intake frequency: a few times a week Hx Substance Use: No substance use type: does not use Physical Exam Vital Signs Last Vital Signs Temp 37.4 C 05/29/20 15:05 Pulse 93 H 05/29/20 15:05 Resp 20 05/29/20 15:05 BP 128/74 05/29/20 15:05 Pulse Ox 91 05/29/20 15:05 Testing Laboratory Results 05/29/20 06:36 05/29/20 06:36 05/28/20 12:41 Aerobic Blood Culture - Preliminary Blood No growth in Aerobic bottle after 24 hours. Anaerobic Blood Culture - Preliminary No growth in Anaerobic bottle after 24 hours. 05/28/20 12:49 Aerobic Blood Culture - Preliminary Blood No growth in Aerobic bottle after 24 hours. Anaerobic Blood Culture - Preliminary No growth in Anaerobic bottle after 24 hours. 05/29/20 05/29/20 05/29/20 12:15 11:12 07:52 POC Glucose 193 H 188 H 199 H 05/29/20 04:17 POC Glucose 205 H Electrocardiogram Date: 05/28/20 Findings: + NSR @ (84) Poor data quality, interpretation may be adversely affected Normal sinus rhythm Nonspecific ST abnormality Abnormal QRS-T angle, consider primary T wave abnormality Abnormal ECG When compared with ECG of 26-FEB-2020 07:56, No significant change Confirmed by León Villarreal ([id number]) on 05/29/2020 10:26:54 AM Chest X-Ray Date: 05/28/20 XR chest 2V PA/lateral CLINICAL HISTORY: Chest Pain, possible surgery ATYPICAL CHEST PAIN COMPARISON STUDY: 02/25/2020 FINDINGS: The heart is mildly enlarged. There is no failure. There is no focal pulmonary consolidation. There are no pleural effusions. There is no pneumothorax. Postsurgical changes are present within the thoracolumbar spine.[ IMPRESSION: No active disease in the chest. Echocardiogram Date: 05/06/20 LV grossly normal size. LV systolic function is low normal EF 50-55% No regional wall motion abnormalities Mild LVH Grade 1 DD
--- NOTE | 2020-05-29 20:27 | Hospitalist Progress Note ---
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 Wound cultures: 02/04/20 Klebsiella oxytoca + MSSA 02/18/20 MRSA 04/30/20 Pseudomonas aeruginosa No fever or leukocytosis. CRP = 8.42. Blood cultures obtained. Wound culture obtained. Vascular Surgery, ID, Wound Care consulted. Receiving IV vancomycin + cefepime. Right AKA recommended and scheduled for tomorrow. (2) Coronary artery disease: Cardiac status stable. (3) Emphysema of lung: Pulmonary status stable. (4) Diabetes mellitus type 2 with complications: Lantus / NovoLog per protocol. FBS today = 199. (5) DVT prophylaxis: SQ heparin- hold for surgery. (6) Discharge planning issues: Discharge disposition to be determined. Family Medicine follow-up with Dr. Moses. Admission and Anticipated Discharge Date Admission Date: May 28, 2020 Subjective Recheck for wound infection RLE and other problems. Patient seen in their room around 1840. Experiencing severe pain RLE earlier today. Received IV hydromorphone PRN a few times. Very somnolent at time of my assessment. Review of Systems: Unable to obtain due to somnolence. Physical Exam Constitutional: no acute distress Eyes: sclerae not anicteric Respiratory: normal respiratory effort, lungs clear to auscultation Cardiovascular: Rate/Rhythm: regular rate and regular rhythm Vessels: no J VD Extremities: no calf tenderness Gastrointestinal (Abdomen): normal bowel sounds, soft, nontender, no hepatosplenomegaly Musculoskeletal: Extremities: + extremities abnormal to inspection (LT AKA, RT BKA with wound) and no cyanosis Skin: no rashes, warm and dry wound right BKA with drainage and erythema Psychiatric: Orientation: + not alert Results & Data Results & Data ([place]) Vital Signs (Past 12 Hours) Vital Signs Temp Pulse Resp BP Pulse Ox 05/29/20 15:05 37.4 C 93 H 20 128/74 91 05/29/20 11:19 36.5 C 88 18 95/65 L 95 Laboratory Results 05/29/20 06:36 05/29/20 06:36 (1) Emphysema of lung Emphysema type: unspecified Qualified Code(s): J43.9 - Emphysema, unspecified
[2020-05-29] MEDS ORDERED: INSULIN GLARGINE SOLOSTAR 100 UNITS/ML 3 ML PEN SC SCH (21:00)
[2020-05-29] MEDS ORDERED: VANCOMYCIN TROUGH ONE (23:30)
[2020-05-30] MEDS: VANCOMYCIN HCL 1,250 MG in SODIUM CHLORIDE 0.9% 250 ML IV SCH (00:31)
[2020-05-30] MEDS ORDERED: XOPENEX/ATROVENT 1.25mg/0.5MG NEB COMBO NEB PRN (01:20)
[2020-05-30] MEDS ORDERED: XOPENEX/ATROVENT 1.25mg/0.5MG NEB COMBO NEB STA (01:22)
[2020-05-30] MEDS ORDERED: IPRATROPIUM BROMIDE NEB SOLN 0.02% 2.5 ML VIAL INH STA (01:24)
[2020-05-30] MEDS ORDERED: LEVALBUTEROL 1.25MG/0.5ML NEB INH STA (01:24)
[2020-05-30] MEDS ORDERED: LEVALBUTEROL 1.25MG/0.5ML NEB INH PRN (01:30)
[2020-05-30] MEDS ORDERED: IPRATROPIUM BROMIDE NEB SOLN 0.02% 2.5 ML VIAL INH PRN (01:30)
[2020-05-30] MEDS ORDERED: OPTIRAY 320 125ml IV ONE (02:03)
[2020-05-30 02:27] LABS: Base Excess ABG -5.1 mEq/L (-9-1.8); HCO3 ABG 19 mmol/L (19-24); Oxygen Saturation ABG 92.5 % (90-95); PCO2 ABG 33 mmHg (35-46); PO2 ABG 66 mmHg (80-95); pH ABG 7.38 (7.35-7.45)
[2020-05-30 02:32] LABS: Allen Test POS (Pos)
[2020-05-30] MEDS ORDERED: FUROSEMIDE 40 MG in SYRINGE 0 ML IV ONE (02:44)
[2020-05-30 02:54] LABS: Hematocrit (blood only) 39.4 % (42-52); Hemoglobin 12.8 g/dL (14.0-18.0); Mean Corpuscular Hemoglobin 31.8 pg (25-34); Mean Corpuscular Hgb Conc 32.5 g/dL (32-36); Mean Corpuscular Volume 97.8 fL (80-100); Mean Platelet Volume 9.7 fL (7.4-10.4); Platelet Count 307 K/uL (130-400); RDW Coefficient of Variation 14.3 % (11.5-14.5); RDW Standard Deviation 51.1 fL (36.4-46.3); Red Blood Count 4.03 M/uL (4.7-6.1); White Blood Count 16.04 K/uL (4.8-10.8)
[2020-05-30 03:07] LABS: BUN Creatinine Ratio 22.7 (10-20); Creatinine Clr Calc Pharmacy 70.3 ml/min; Est GFR (African American) 68.4; Potassium 4.1 mmol/L (3.5-5.1)
[2020-05-30] MEDS: HYDROmorphone INJ 2 MG/ML SYR/VIAL IV PRN (03:08)
--- NOTE | 2020-05-30 04:01 | Hospitalist Progress Note ---
Date of Service May 30, 2020 Assessment & Plan Admission and Anticipated Discharge Date Admission Date: May 28, 2020 Subjective Was notified that patient was diaphoretic, tachycardia and sob and requiring oxymask 15litres all of sudden. Seen and examined patient. Patient not in acute distress. Mild sweating noted. Complains of some chest pain but was attributed to rib pain. Hr in 100's. Mild b/l rhonchi on exam. Ordered troponin, abg, cta chest and nebs. CTA chest NO PE but showed pul. congestion. Gave a dose of iv lasix 40mg. EKG no acute findings.ABG ok. But troponin came back at 0.8. Started on iv heparin. ordered echo. consulted cardiology. Seems improving. Results & Data Results & Data ([facility]) Vital Signs (Past 12 Hours) Vital Signs Temp Pulse Pulse Resp BP Pulse Ox 05/30/20 01:33 105 H 24 93 05/29/20 23:20 37.7 C H 100 H 21 130/72 90 05/29/20 23:07 102 H
[2020-05-30 04:51] LABS: Partial Thromboplastin Ratio 1.1
[2020-05-30] MEDS: HEPARIN SODIUM/DEXTROSE 25,000 UNITS/500 ML BAG IV SCH ×2 (04:55→20:35)
[2020-05-30] MEDS: CEFEPIME 2,000 MG in SYRINGE 0 ML IV SCH ×3 (05:49→21:15)
[2020-05-30 06:01] LABS: Estimated Average Glucose 229 mg/dl; Hemoglobin A1C 9.6 % (4.5-5.6)
[2020-05-30] MEDS ORDERED: SODIUM CHLORIDE 0.9% 250 ML IV PRN (08:00)
[2020-05-30] MEDS: GABAPENTIN 300 MG CAP PO SCH ×3 (08:14→20:59)
[2020-05-30] MEDS: INSULIN ASPART 100 UNITS/ML 3 ML PEN SC SCH ×4 (08:15→21:15)
[2020-05-30] MEDS ORDERED: INSULIN GLARGINE SOLOSTAR 100 UNITS/ML 3 ML PEN SC ONE (08:30)
--- NOTE | 2020-05-30 08:41 | Cardiology Consultation ---
Date of Consultation May 30, 2020 Assessment & Plan (1) Diabetes mellitus type 2 with complications: (2) Coronary artery disease: (3) CHF (congestive heart failure): (4) Troponin level elevated: (5) Unilateral complete AKA: (6) Right BKA infection: I think the patient may have developed congestive heart failure perhaps due to volume overload overnight. His troponin elevations could be type II elevation. He had a normal echocardiogram in April, unfortunately the echocardiogram performed this morning was of poor quality due to poor acoustic windows. It may suggest reduced left ventricular systolic function. I would continue at least oral Lasix through today. Obviously we need to cancel his surgery for today and reschedule when he is stable. I would continue to draw cardiac troponins and additional EKGs. Provided he remains stable, at this time I see no indication for a cardiac catheterization. Repeat echocardiogram in the future when the patient has better acoustic windows may be helpful. History of Present Illness Attending Physician: Andrew Brown MD History of Present Illness This is a 64-year-old male patient with a history of diabetes with complications, peripheral vascular disease and tobacco abuse. The patient has a history of a left AKA and more recently underwent a right BKA which unfortunately has been infected. Patient was scheduled to have a right AKA today but through the night developed sudden onset of acute shortness of breath treated with Lasix with rapid improvement. The patient's chest x-ray is interp reted as having no acute disease however I think it may have evidence of pulmonary edema. He had a CT of the chest which is reported negative for pulmonary emboli. He had a resting echocardiogram with poor acoustic windows which may suggest reduced left ventricular ejection fraction. Of note is that in April he had a normal echocardiogram with normal LV function. No significant arrhythmias on telemetry. He is resting comfortably and has no complaints. He did have cardiac troponins drawn with a baseline elevation and a slight increase overnight. His EKG shows sinus rhythm with probable left ventricular hypertrophy and strain. Past medical history: Insulin-requiring or dependent type II diabetes mellitus ([facility]) DM type 2 with diabetic peripheral neuropathy ([facility]) PAD (peripheral artery disease) ([facility]) Type 2 diabetes mellitus with hemoglobin A1c goal of less than 8.0% ([facility]) Bilateral carotid artery disease ([facility]) Unilateral AKA, left ([facility]) Osteomyelitis of ankle or foot, right, acute ([facility]) Non-healing ulcer of foot (HCC) S/P BKA (below knee amputation) unilateral (HCC) Reflux esophagitis Dyslipidemia, goal LDL below 100 CVA, old, cognitive deficits S/P angioplasty History of tobacco use Diabetes mellitus type 2 with peripheral artery disease (HCC) Emphysema lung (HCC) Nodule of lower lobe of left lung Infection due to yeast Coronary artery disease involving quinault coronary artery of quinault heart without angina pectoris Allergies Allergy/AdvReac Type Severity Reaction Status Date / Time No Known Allergies Allergy Verified 05/28/20 12:18 Home Medications Home Medications Medication Instructions Recorded Confirmed Type aspirin 81 mg tablet,delayed 81 mg PO DAILY 04/30/20 05/28/20 History release clopidogrel 75 mg tablet 75 mg PO DAILY 04/30/20 05/28/20 History gabapentin 300 mg capsule 300 mg PO TID 04/30/20 05/28/20 History insulin aspart U-100 100 unit/mL 1 sliding scale dose SUBCUT 04/30/20 05/28/20 History subcutaneous solution USEASDIRECTD insulin glargine 100 unit/mL 60 unit SUBCUT DAILY ml 04/30/20 05/28/20 History subcutaneous solution oxycodone 10 mg tablet 10 mg PO Q6H PRN 04/30/20 05/28/20 History hydrocodone-acetaminophen 1 - 2 tab PO Q8H PRN 05/28/20 05/28/20 History polyethylene glycol 3350 [Miralax] 17 g PO DAILY PRN 05/28/20 05/28/20 History Patient History Medical History CAD in quinault artery Carotid artery disease S/P right CEA by Dr. Sheppard on 09/14/17. L Occluded carotid artery Chronic refractory osteomyelitis of right lower leg Coronary artery disease Diabetes mellitus type 2 with complications Diabetic neuropathy Diabetic peripheral angiopathy DM type 2 (diabetes mellitus, type 2) Dyslipidemia Emphysema of lung GERD (gastroesophageal reflux disease) History of CVA (cerebrovascular accident) H/O right basal ganglia stroke in 2011. PAD (peripheral artery disease) Peripheral vascular disease Right BKA infection Tobacco dependence Surgical History History of angioplasty of peripheral vessel L LEG left popliteal artery angioplasty and stent as left AT/peroneal/TP trunk angioplasty on 05/10/[address] Sheppard left AKA on 12/19/17 09/27/17 for angioplasty/stent of the left SFA, but noted to have a BK- popliteal occlusion (would need a left fem=>AT bypass). left common femoral endarterectomy with vein patch angioplasty and common femoral artery => anterior tibial artery bypass using non-reversed left great saphenous vein 10/20/2017. R LEG RSFA stent and, angioplasty of PT/peroneal artery 06/06/[address] Mosqueda S/P right TOMMIE/TP-trunk/peroneral/PT angioplasty by Dr. Mosqueda on 10/25/18. 02/2019 again prompted additional intervention He underwent bilateral common & external iliac artery stents (one 7 x 80 mm Everflex stent on each side) and right SFA/pop/TP-trunk angioplasty by Dr. Sheppard 04/03/19. 05/09/20 He underwent balloon angioplasty of right SFA/popliteal/TP-trunk/peroneral arteries and open amputation of the R 5th toe by Dr. Sheppard on 08/10/19. History of femoropopliteal bypass History of right below knee amputation 11/15/[address] Sheppard History of spinal fusion "05/[address] Reeder" Hx of AKA (above knee amputation) L 12/2018 Social History Smoking Status: Current every day smoker Tobacco Type: Cigarettes packs per day: 1; Years Smoked: 50; Cigarettes Per Day: pack; Second Hand Exposure: No; Do You Dip or Chew Tobacco: No; Hx Alcohol Use: Yes Alcohol type: beer Alcohol Intake Frequency: 2-4 x/Month Hx Substance Use: No Preferred Language: Slovak Communication Ability: Effective Hydrodynamics Teacher Required: No Beliefs That Will Affect Care: None marital status: Current Living Situation: Spouse Current Living Situation Comment: [facility] current occupational status: retired How many Children do You have: 1 How many Children do You have Comment: LOCAL SON THAT IS ABLE TO HELP. ALSO HAS SISTER WHO IS ABLE TO HELP NEEDED. Feels Safe at Home: Yes Safety Concerns: Feels Safe At This Time during the past year weight has: increased > 10 lbs Assistive Devices: Glasses Review of Systems Review of Systems: All systems reviewed & are unremarkable except as noted in HPI & below Nothing additional to add. Physical Exam Physical Exam: General: no acute distress and stated age Head: normocephalic, no masses, lesions, tenderness or abnormalities Eyes: conjunctiva are pink and non-injected, sclera clear Neck: supple, no adenopathy, no bruits, normal jugular venous pulse, no hepatojugular reflux Chest: normal shape and normal respiratory effort Lungs: clear to auscultation and percussion Cardiac Exam: - regular rate & rhythm, no murmurs gallops or rubs - normal S1, normal S2 Pulses: 2(+) throughout Abdomen: abdomen soft, non-tender, no abnormal masses and no hepatosplenomegaly Musculoskeletal: no gait disturbance, no joint inflammation, no deforming arthritis Extremities: Bilateral amputee Neuro: grossly normal exam Results & Data ([facility]) Vital Signs (Past 12 Hours) Vital Signs Temp Pulse Pulse Resp BP Pulse Ox 05/30/20 07:31 36.9 C 88 20 135/76 92 05/30/20 04:55 96 05/30/20 04:20 37 C 90 22 109/62 94 05/30/20 01:33 105 H 24 93 05/29/20 23:20 37.7 C H 100 H 21 130/72 90 05/29/20 23:07 102 H Laboratory Results Laboratory Results - last 24 hr 05/29/20 05/29/20 05/29/20 11:12 12:15 15:57 WBC RBC Hgb Hct MCV MCH MCHC RDW Std Deviation RDW Coeff of Martin Plt Count MPV APTT PTT Ratio ABG pH ABG pCO2 ABG pO2 ABG HCO3 ABG O2 Saturation ABG Base Excess Sanford Test Barometric Pressure Oxygen Given Sodium Potassium Chloride Carbon Dioxide Anion Gap BUN Creatinine Est Cr Clr Drug Dosing Est GFR ( Amer) Est GFR (Non-Af Amer) BUN/Creatinine Ratio Glucose POC Glucose 188 H 193 H Estimat Average Glucose Hemoglobin A1c Calcium Troponin I Vancomycin Trough Random Vancomycin Blood Type A Positive Antibody Screen NEGATIVE Crossmatch See Detail 05/29/20 05/29/20 05/29/20 16:47 19:51 23:25 WBC RBC Hgb Hct MCV MCH MCHC RDW Std Deviation RDW Coeff of Martin Plt Count MPV APTT PTT Ratio ABG pH ABG pCO2 ABG pO2 ABG HCO3 ABG O2 Saturation ABG Base Excess Sanford Test Barometric Pressure Oxygen Given Sodium Potassium Chloride Carbon Dioxide Anion Gap BUN Creatinine Est Cr Clr Drug Dosing Est GFR ( Amer) Est GFR (Non-Af Amer) BUN/Creatinine Ratio Glucose POC Glucose 179 H 209 H Estimat Average Glucose Hemoglobin A1c Calcium Troponin I Vancomycin Trough 23.8 Random Vancomycin Blood Type Antibody Screen Crossmatch 05/30/20 05/30/20 05/30/20 01:05 02:10 02:10 WBC 16.04 H RBC 4.03 L Hgb 12.8 L Hct 39.4 L MCV 97.8 MCH 31.8 MCHC 32.5 RDW Std Deviation 51.1 H RDW Coeff of Martin 14.3 Plt Count 307 MPV 9.7 APTT PTT Ratio ABG pH ABG pCO2 ABG pO2 ABG HCO3 ABG O2 Saturation ABG Base Excess Sanford Test Barometric Pressure Oxygen Given Sodium 136 Potassium 4.1 Chloride 105 Carbon Dioxide 21 Anion Gap 10.0 BUN 29 H Creatinine 1.26 Est Cr Clr Drug Dosing 70.3 Est GFR ( Amer) 68.4 Est GFR (Non-Af Amer) 59.0 BUN/Creatinine Ratio 22.7 H Glucose 246 H POC Glucose 222 H Estimat Average Glucose Hemoglobin A1c Calcium 9.0 Troponin I Vancomycin Trough Random Vancomycin Blood Type Antibody Screen Crossmatch 05/30/20 05/30/20 05/30/20 02:10 02:10 02:10 WBC RBC Hgb Hct MCV MCH MCHC RDW Std Deviation RDW Coeff of Martin Plt Count MPV APTT PTT Ratio ABG pH 7.38 ABG pCO2 33 L ABG pO2 66 L ABG HCO3 19 ABG O2 Saturation 92.5 ABG Base Excess -5.1 Sanford Test POS Barometric Pressure 735.5 Oxygen Given 10 L Sodium Potassium Chloride Carbon Dioxide Anion Gap BUN Creatinine Est Cr Clr Drug Dosing Est GFR ( Amer) Est GFR (Non-Af Amer) BUN/Creatinine Ratio Glucose POC Glucose Estimat Average Glucose 229 Hemoglobin A1c 9.6 H Calcium Troponin I 0.883 H* Vancomycin Trough Random Vancomycin Blood Type Antibody Screen Crossmatch 05/30/20 05/30/20 05/30/20 04:15 04:15 07:04 WBC RBC Hgb Hct MCV MCH MCHC RDW Std Deviation RDW Coeff of Martin Plt Count MPV APTT 32.0 H PTT Ratio 1.1 ABG pH ABG pCO2 ABG pO2 ABG HCO3 ABG O2 Saturation ABG Base Excess Sanford Test Barometric Pressure Oxygen Given Sodium Potassium Chloride Carbon Dioxide Anion Gap BUN Creatinine Est Cr Clr Drug Dosing Est GFR ( Amer) Est GFR (Non-Af Amer) BUN/Creatinine Ratio Glucose POC Glucose Estimat Average Glucose Hemoglobin A1c Calcium Troponin I 1.690 H* Vancomycin Trough Random Vancomycin 26.3 Blood Type Antibody Screen Crossmatch 05/30/20 07:07 WBC RBC Hgb Hct MCV MCH MCHC RDW Std Deviation RDW Coeff of Martin Plt Count MPV APTT PTT Ratio ABG pH ABG pCO2 ABG pO2 ABG HCO3 ABG O2 Saturation ABG Base Excess Sanford Test Barometric Pressure Oxygen Given Sodium Potassium Chloride Carbon Dioxide Anion Gap BUN Creatinine Est Cr Clr Drug Dosing Est GFR ( Amer) Est GFR (Non-Af Amer) BUN/Creatinine Ratio Glucose POC Glucose 265 H Estimat Average Glucose Hemoglobin A1c Calcium Troponin I Vancomycin Trough Random Vancomycin Blood Type Antibody Screen Crossmatch Medications Administered Current Inpatient Medications Dextrose (Dextrose 50% 50 Ml Syringe) 25 - 50 ml IV UD PRN; Protocol PRN Reason: Hypoglycemia Protocol Stop: 06/27/20 18:14 Furosemide (Furosemide 40 Mg Tab) 40 mg PO BID17 VANDANA Stop: 06/29/20 16:59 Gabapentin (Gabapentin 300 Mg Cap) 300 mg PO TID VANDANA Stop: 06/27/20 20:59 Last Admin: 05/30/20 08:14 Dose: 300 mg Documented by: Glucagon (Glucagon For Inj 1 Mg Vial) 1 mg IM UD PRN; Protocol PRN Reason: Hypoglycemia Protocol Stop: 06/27/20 18:14 Glucose (Glucose 40% Gel 15 Gm Tube) 15 - 30 gm PO UD PRN; Protocol PRN Reason: Hypoglycemia Protocol Stop: 06/27/20 18:14 Glucose (Glucose 10 Tabs/Tube) 4 - 8 tabs PO UD PRN; Protocol PRN Reason: Hypoglycemia Protocol Stop: 06/27/20 18:14 Hydromorphone HCl (Hydromorphone Inj 2 Mg/Ml Syr/Vial) 2 mg IV Q3H PRN PRN Reason: Pain Stop: 06/11/20 16:16 Last Admin: 05/30/20 03:08 Dose: 2 mg Documented by: Cefepime HCl 2,000 mg/ Syringe 20 mls @ 5 mls/min IV Q8H VANDANA; Protocol Stop: 07/09/20 13:59 Last Admin: 05/30/20 05:49 Dose: 5 mls/min Documented by: Vancomycin HCl 1,250 mg/ (Sodium Chloride) 275 mls @ 200 mls/hr IV Q12H VANDANA; Protocol Stop: 07/09/20 11:59 Last Infusion: 05/30/20 00:33 Dose: 0 mls/hr Documented by: Sodium Chloride (Nss) 250 mls @ 15 mls/hr IV .[id number] PRN PRN Reason: For Transfusion Stop: 06/29/20 07:59 Heparin Sodium/Dextrose (Heparin Sodium/Dextrose) 25,000 units in 500 mls @ 31 mls/hr IV .Q16H8M VANDANA; Protocol Stop: 06/29/20 02:59 Last Admin: 05/30/20 04:55 Dose: 1,550 units/hr, 31 mls/hr Documented by: Insulin Aspart (Insulin Aspart 100 Units/Ml 3 Ml Pen) 0 units SC ACHS [facility]; Protocol Stop: 06/27/20 19:29 Last Admin: 05/30/20 08:15 Dose: 5 units Documented by: Insulin Glargine (Insulin Glargine Solostar 100 Units/Ml 3 Ml Pen) 0 units SC HS VANDANA; Protocol Stop: 06/28/20 20:59 Last Admin: 05/29/20 20:23 Dose: Not Given Documented by: Ipratropium Liberal (Ipratropium Liberal Neb Soln 0.02% 2.5 Ml Vial) 0.5 mg INH Q4H PRN PRN Reason: Shortness Of Breath Or Wheezing Stop: 06/29/20 01:29 Levalbuterol HCl (Levalbuterol 1.25mg/0.5ml Neb) 1.25 mg INH Q4H PRN PRN Reason: Shortness Of Breath Or Wheezing Stop: 06/29/20 01:29 Miscellaneous (Carbohydrates For Hypoglycemia ) 15 - 30 gm PO UD PRN PRN Reason: Hypoglycemia Treatment Stop: 06/27/20 18:14 Miscellaneous Information (Vancomycin Consult Active) 1 ea N/A UD PRN PRN Reason: Consult Stop: 06/27/20 16:04 Miscellaneous Information (Pharmacy Glycemic Mgmt Consult) 1 ea N/A UD PRN PRN Reason: Consult Stop: 06/27/20 18:05 Oxycodone HCl (Oxycodone Hcl Ir 5 Mg Tab (Immediate Release)) 10 mg PO Q6H PRN PRN Reason: Pain Stop: 06/11/20 18:17 Last Admin: 05/29/20 05:18 Dose: 10 mg Documented by:
--- NOTE | 2020-05-30 10:23 | CT Scan Report ---
CT ANGIOGRAM OF THE CHEST CLINICAL HISTORY: Atypical chest pain. COMPARISON STUDY: Chest x-ray dated 05/28/2020. TECHNIQUE: Following the IV administration of 94 cc of Optiray 320, CT angiogram of the chest was per formed from the upper abdomen to the thoracic inlet utilizing the pulmonary embolus protocol. Images are reviewed in the axial, sagittal, and coronal planes. 3-D MIPS images are created and assessed. IV contrast was administered without complication. A dose lowering technique was utilized adhering to the principles of ALARA. The examination is degraded by motion artifact, as well as by streak artifac t from the arms which could not be elevated above the chest. CT DOSE: 1171.80 mGy.cm FINDINGS: Thyroid: Imaged portions of the thyroid gland are normal in size and attenuation. Thoracic aorta: There is atherosclerotic calcification of the thoracic aorta, which is normal in sal evita and demonstrates standard 3-vessel arch anatomy. No dissection is seen. Pulmonary vasculature: The pulmonary trunk is normal in caliber. There are no filling defects identif ied in main, lobar, or proximal segmental pulmonary branches to suggest pulmonary embolus. Evaluation of the peripheral branches is significantly degraded by streak and motion artifact. Heart: The heart is enlarged and without pericardial effusion. The coronary arteries and mitral annul us are densely calcified. Lungs and pleural spaces: Evaluation of the lung parenchyma is significantly compromised by motion ar tifact. There are small pleural effusions. There is diffuse intralobular septal thickening. Patchy gr oundglass consolidation is seen throughout both lungs. Mediastinum: There is no mediastinal lymphadenopathy. Corine: Clear. Axillae: There is no axillary lymphadenopathy. Upper abdomen: There is a small hiatal hernia. The liver appears steatotic. Skeletal structures: The skeletal structures are osteopenic. Degenerative change is seen throughout t he thoracic spine. Fusion hardware is noted at the thoracolumbar junction. No lytic or blastic bony l esions are seen. IMPRESSION: 1. Streak and motion compromised examination. 2. There is no evidence of central pulmonary embolus in the main, lobar, or proximal segmental pulmon yaritza arteries. 3. Cardiomegaly with evidence of congestive failure. 4. Patchy groundglass consolidation is seen throughout both lungs. This likely represents interstitia l edema. Correlate clinically for evidence of a superimposed infectious/inflammatory pneumonitis. ACT 112: Negative or not required by law. Electronically signed by: Leif Ramires M.D. 05/30/2020 7:59 AM
[2020-05-30] MEDS: POTASSIUM CHLORIDE CRTAB 20 MEQ TABCR PO SCH (11:05)
[2020-05-30 11:31] LABS: Partial Thromboplastin Ratio 1.8
[2020-05-30 11:45] LABS: Partial Thromboplastin Time 51.3 Seconds (21.0-31.0)
--- NOTE | 2020-05-30 12:16 | Electrocardiogram Report ---
Test Reason : Blood Pressure : / mmHG Vent. Rate : 107 BPM Atrial Rate : 107 BPM P-R Int : 200 ms QRS Dur : 110 ms QT Int : 344 ms P-R-T Axes : 061 060 -05 degrees QTc Int : 459 ms Poor data quality, interpretation may be adversely affected Sinus tachycardia Consider ischemia in lateral leads Abnormal ECG When compared with ECG of 28-MAY-2020 12:30, No significant change was found Confirmed by León Villarreal ([id number]) on 05/30/2020 12:16:25 PM Referred By: Tray Honeycutt Confirmed By:León Villarreal
[2020-05-30] MEDS ORDERED: VANCOMYCIN HCL 1,000 MG in SODIUM CHLORIDE 0.9% 250 ML IV STA (12:49)
--- NOTE | 2020-05-30 13:20 | Pharmacy Report ---
Pharmacy Abx Dose Short Note - Date of Service May 30, 2020 - Assessment & Plan Assessment 64 year old M receiving vancomycin and cefepime IV for treatment of infected right BKA wound, osteomyelitis * Day #3 of antimicrobial therapy * Patient [place] be going to [place] on Tuesday for a vascular procedure * Cultures with no growth to date but does have a h/o MRSA and Pseudomonas * Did have a low grade fever of 37.7oC last evening and white count trended upwards to 16k today * Continue to monitor - may consider change to daptomycin Plan Vancomycin * Trough level of 23.8 mcg/mL was supratherapeutic. Vanc was put on hold but some was already infused so random level with AM labs was even higher at 26.3 mcg/mL. Held dose entirely. * Change to 1000 mg IV every 12 hours starting at noon today * Goal trough level: 15 to 20 mcg/mL * Trough level ordered for Tuesday which will represent steady state levels Cefepime is dosed appropriately per indication and renal function Pharmacy will continue to follow and will adjust dose/frequency as necessary. Thank you.
--- NOTE | 2020-05-30 13:31 | Pharmacy Report ---
Pharmacy Glycemic Short Note 2 - Date of Service May 30, 2020 - Glycemic Short BSG Results (Last 24 hours): OUTPATIENT ANTIDIABETIC REGIMEN: * Lantus 60 units SQ HS + Novolog SSI * A1c = 9.6% (02/26/2020) ASSESSMENT: 05/30: * Patient has not received Lantus dose on either of the last 2 evenings secondary to a nursing decision therefore patient is severely basal deficient which has led to hyperglycemia. Pharmacy is aware the patient was NPO but had adjusted to basal insulin dose accordingly. * Mr. Paul received a total of 11 units of insulin last evening, all of which were bolus * BSGs were [id number] mg/dL - uncontrolled secondary to basal deficiency * Patient was supposed to go to OR this AM but that cancelled. He will now be heading to the OR on Tuesday. Therefore, a T2DM diet has been ordered for this patient. * Fasting BSG was 265 mg/dL this AM which is very uncontrolled. Again, this is secondary to a basal deficiency. Basal insulin was ordered on the previous two evenings but RN did not administer the insulin. * Therefore, will start the patient on BID Lantus today based on a weight and stress of three. * Will tighten Novolog parameters secondary to hyperglycemia as well 05/29: * 64 yo M admitted secondary to right below knee amputation infection. Pharmacy is consulted for inpatient glycemic management. * Patient received 30 units of lantus last evening (half of home dose) for a BSG of 168 mg/dL. * Fasting BSG was 199 mg/dL this AM * Patient will be NPO at midnight for a R AKA tomorrow morning. * He has not eaten anything as of yet today and he is still hyperglycemic; therefore, will increase basal dose slightly tonight * Continue with current Novolog parameters PLAN FOR INPATIENT GLYCEMIC CONTROL: * Basal insulin * Lantus 25 units SQ BID * Bolus insulin * NovoLog per scale ACHS or Q6hrs while NPO * Goal Range: Low 110 mg/dL - High 140 mg/dL * Correction Factor: 20 mg/dL/unit * Nutritional / Prandial insulin per carb ratio of 1 unit per 7 grams CHO consumed PLAN FOR DISCHARGE: * HbA1c is 9.6% from this admission. This is improved from the last A1c in February 2020 but not significantly. Patient will likely require an increase in insulin dose prior to discharge. Could consider BID Lantus at home to ensure full 24 hours coverage.
[2020-05-30 16:49] LABS: Partial Thromboplastin Ratio 1.6; Partial Thromboplastin Time 43.3 Seconds (21.0-31.0)
[2020-05-30] MEDS ORDERED: FUROSEMIDE 40 MG TAB PO SCH (17:00)
[2020-05-30] MEDS ORDERED: NITROGLYCERIN SL 0.4 MG/TAB TAB SL PRN (17:36)
[2020-05-30] MEDS ORDERED: ONDANSETRON INJ 2 MG/ML 2 ML VIAL IV PRN (17:36)
[2020-05-30] MEDS: METOPROLOL TARTRATE 1 MG/ML VIAL IV SCH (17:48)
[2020-05-30] MEDS ORDERED: METOPROLOL TARTRATE 25 MG TAB PO SCH (18:00)
--- NOTE | 2020-05-30 19:53 | Hospitalist Progress Note ---
Date of Service May 30, 2020 Assessment & Plan (1) Chronic refractory osteomyelitis of right lower leg: Status post right BKA with chronic wound infection / possible persistent osteomyelitis. Wound cultures: 02/04/20 Klebsiella oxytoca + MSSA 02/18/20 MRSA 04/30/20 Pseudomonas aeruginosa No fever or leukocytosis. CRP = 8.42. Blood cultures obtained. Wound culture obtained. Vascular Surgery, ID, Wound Care consulted. Receiving IV vancomycin + cefepime. Right AKA recommended- surgery postponed due to acute cardiac issues. (2) Coronary artery disease: Coronary artery disease listed as problem in [facility] EMR, but patient unaware of any history of [place], angina, or other cardiac problems. Multiple risk factors for CAD. Cardiology consulted for chest pain & pulmonary edema. EKG showed SR with nonspecific ST / T-wave changes. Echo showed reduced LVEF (poor visualization). Serial troponins 0.883 > 1.690 > 4.00. ? demand ischemia vs non-STEMI. Started on IV heparin. Continue ASA + clopidogrel. Add metoprolol. Check lipid profile. Add atorvastatin. (3) CHF (congestive heart failure): CTA chest showed pulmonary edema. No prior history of CHF. Echo limited study, but showed LVEF ~ 35% (was 50-55% by echo on 05/06/20). Received IV furosemide with improvement. Cardiology consulted. Check f/u chest x-ray in a.m. (4) Emphysema of lung: Bronchodilators PRN. (5) Diabetes mellitus type 2 with complications: DM type 2 complicated by peripheral vascular disease and probable coronary artery disease. Hgb A1c = 9.6. Pharmacy consulted for glycemic management. Lantus / NovoLog per protocol. FBS today = 265. (6) DVT prophylaxis: Initially received SQ heparin- held for surgery. Now on heparin infusion. (7) Discharge planning issues: Discharge disposition to be determined. Family Medicine follow-up with Dr. Moses. Admission and Anticipated Discharge Date Admission Date: May 28, 2020 Subjective Recheck for infection RLE and other problems. Patient seen in their room around 0730. Episode of CP and SOB last night associated with sinus tachycardia, hypoxia, diaphoresis. EKG showed SR, nonspecific ST / T-wave changes. CTA chest negative for PE, but demonstrated pulmonary edema. Received supplemental O2, neb, furosemide. Feels much better this a.m. No further chest pain or SOB. No cough. Low grade temp last night. Severe RLE pain yesterday, but none today. Review of Systems: Constitutional- as noted above. Cardiac- as noted above. Pulmonary- as noted above. GI- no nausea, vomiting, diarrhea, melena, hematochezia. - no urinary symptoms. Otherwise, as noted above. Physical Exam Constitutional: no acute distress Eyes: + anicteric sclerae Respiratory: normal respiratory effort, lungs clear to auscultation Cardiovascular: Rate/Rhythm: regular rate and regular rhythm Heart Sounds: no gallop (exam limited, none appreciated) and no murmur (exam limited, none appreciated) Vessels: no JVD Extremities: no calf tenderness Gastrointestinal (Abdomen): normal bowel sounds, soft, nontender, no hepatosplenomegaly Musculoskeletal: Extremities: + extremities abnormal to inspection (LT AKA, RT BKA with wound) and no cyanosis Skin: no rashes, warm and dry Psychiatric: Orientation: alert and oriented x 3 Results & Data Results & Data ([facility]) Vital Signs (Past 12 Hours) Vital Signs Temp Pulse Pulse Resp BP Pulse Ox 05/30/20 19:37 37.4 C 88 20 152/79 H 95 05/30/20 17:48 92 H 05/30/20 15:31 36.9 C 90 24 149/77 H 94 05/30/20 15:18 95 05/30/20 11:29 37.1 C 85 18 139/75 96 Laboratory Results Laboratory Results - last 24 hr 05/29/20 05/30/20 05/30/20 23:25 01:05 02:10 WBC 16.04 H RBC 4.03 L Hgb 12.8 L Hct 39.4 L MCV 97.8 MCH 31.8 MCHC 32.5 RDW Std Deviation 51.1 H RDW Coeff of Martin 14.3 Plt Count 307 MPV 9.7 APTT PTT Ratio ABG pH ABG pCO2 ABG pO2 ABG HCO3 ABG O2 Saturation ABG Base Excess Sanford Test Barometric Pressure Oxygen Given Sodium Potassium Chloride Carbon Dioxide Anion Gap BUN Creatinine Est Cr Clr Drug Dosing Est GFR ( Amer) Est GFR (Non-Af Amer) BUN/Creatinine Ratio Glucose POC Glucose 222 H Estimat Average Glucose Hemoglobin A1c Calcium Troponin I Vancomycin Trough 23.8 Random Vancomycin 05/30/20 05/30/2020 02:10 02:10 02:10 WBC RBC Hgb Hct MCV MCH MCHC RDW Std Deviation RDW Coeff of Martin Plt Count MPV APTT PTT Ratio ABG pH ABG pCO2 ABG pO2 ABG HCO3 ABG O2 Saturation ABG Base Excess Sanford Test Barometric Pressure Oxygen Given Sodium 136 Potassium 4.1 Chloride 105 Carbon Dioxide 21 Anion Gap 10.0 BUN 29 H Creatinine 1.26 Est Cr Clr Drug Dosing 70.3 Est GFR ( Amer) 68.4 Est GFR (Non-Af Amer) 59.0 BUN/Creatinine Ratio 22.7 H Glucose 246 H POC Glucose Estimat Average Glucose 229 Hemoglobin A1c 9.6 H Calcium 9.0 Troponin I 0.883 H* Vancomycin Trough Random Vancomycin 05/30/20 05/30/20 05/30/20 02:10 04:15 04:15 WBC RBC Hgb Hct MCV MCH MCHC RDW Std Deviation RDW Coeff of Martin Plt Count MPV APTT 32.0 H PTT Ratio 1.1 ABG pH 7.38 ABG pCO2 33 L ABG pO2 66 L ABG HCO3 19 ABG O2 Saturation 92.5 ABG Base Excess -5.1 Sanford Test POS Barometric Pressure 735.5 Oxygen Given 10 L Sodium Potassium Chloride Carbon Dioxide Anion Gap BUN Creatinine Est Cr Clr Drug Dosing Est GFR ( Amer) Est GFR (Non-Af Amer) BUN/Creatinine Ratio Glucose POC Glucose Estimat Average Glucose Hemoglobin A1c Calcium Troponin I Vancomycin Trough Random Vancomycin 26.3 05/30/20 05/30/20 05/30/20 07:04 07:07 10:52 WBC RBC Hgb Hct MCV MCH MCHC RDW Std Deviation RDW Coeff of Martin Plt Count MPV APTT 51.3 H* PTT Ratio 1.8 ABG pH ABG pCO2 ABG pO2 ABG HCO3 ABG O2 Saturation ABG Base Excess Sanford Test Barometric Pressure Oxygen Given Sodium Potassium Chloride Carbon Dioxide Anion Gap BUN Creatinine Est Cr Clr Drug Dosing Est GFR ( Amer) Est GFR (Non-Af Amer) BUN/Creatinine Ratio Glucose POC Glucose 265 H Estimat Average Glucose Hemoglobin A1c Calcium Troponin I 1.690 H* Vancomycin Trough Random Vancomycin 05/30/20 05/30/20 05/30/20 11:29 16:20 16:20 WBC RBC Hgb Hct MCV MCH MCHC RDW Std Deviation RDW Coeff of Martin Plt Count MPV APTT 43.3 H PTT Ratio 1.6 ABG pH ABG pCO2 ABG pO2 ABG HCO3 ABG O2 Saturation ABG Base Excess Sanford Test Barometric Pressure Oxygen Given Sodium Potassium Chloride Carbon Dioxide Anion Gap BUN Creatinine Est Cr Clr Drug Dosing Est GFR ( Amer) Est GFR (Non-Af Amer) BUN/Creatinine Ratio Glucose POC Glucose 295 H Estimat Average Glucose Hemoglobin A1c Calcium Troponin I 4.000 H* Vancomycin Trough Random Vancomycin 05/30/20 16:42 WBC RBC Hgb Hct MCV MCH MCHC RDW Std Deviation RDW Coeff of Martin Plt Count MPV APTT PTT Ratio ABG pH ABG pCO2 ABG pO2 ABG HCO3 ABG O2 Saturation ABG Base Excess Sanford Test Barometric Pressure Oxygen Given Sodium Potassium Chloride Carbon Dioxide Anion Gap BUN Creatinine Est Cr Clr Drug Dosing Est GFR ( Amer) Est GFR (Non-Af Amer) BUN/Creatinine Ratio Glucose POC Glucose 214 H Estimat Average Glucose Hemoglobin A1c Calcium Troponin I Vancomycin Trough Random Vancomycin Microbiology 05/28/20 12:41 Blood Aerobic Blood Culture - Preliminary No growth in Aerobic bottle after 48 hours. 05/28/20 12:41 Blood Anaerobic Blood Culture - Preliminary No growth in Anaerobic bottle after 48 hours. 05/28/20 12:49 Blood Aerobic Blood Culture - Preliminary No growth in Aerobic bottle after 48 hours. 05/28/20 12:49 Blood Anaerobic Blood Culture - Preliminary No growth in Anaerobic bottle after 48 hours. 05/29/20 11:00 Knee,Right Gram Stain - Final 05/29/20 11:00 Knee,Right Wound Culture - Preliminary Gram negative bacilli Gram negative bacilli#2 (1) Emphysema of lung Emphysema type: unspecified Qualified Code(s): J43.9 - Emphysema, unspecified
[2020-05-30] MEDS: INSULIN GLARGINE SOLOSTAR 100 UNITS/ML 3 ML PEN SC SCH (21:14)
[2020-05-30 23:01] LABS: Partial Thromboplastin Ratio 1.7
[2020-05-30 23:16] LABS: Partial Thromboplastin Time 47.9 Seconds (21.0-31.0)
[2020-05-31] MEDS ORDERED: VANCOMYCIN HCL 1,000 MG in SODIUM CHLORIDE 0.9% 250 ML IV SCH
[2020-05-31] MEDS ORDERED: Nursing to Pharmacy Communication SCH (00:15)
[2020-05-31] MEDS: METOPROLOL TARTRATE 1 MG/ML VIAL IV SCH ×3 (00:35→18:53)
[2020-05-31 02:15] LABS: Hematocrit (blood only) 38.6 % (42-52); Hemoglobin 13.1 g/dL (14.0-18.0); Mean Corpuscular Hgb Conc 33.9 g/dL (32-36); Mean Corpuscular Volume 94.4 fL (80-100); Mean Platelet Volume 9.8 fL (7.4-10.4); Platelet Count 289 K/uL (130-400); RDW Coefficient of Variation 13.9 % (11.5-14.5); RDW Standard Deviation 48.1 fL (36.4-46.3); Red Blood Count 4.09 M/uL (4.7-6.1); White Blood Count 17.81 K/uL (4.8-10.8)
[2020-05-31 02:39] LABS: BUN Creatinine Ratio 28.8 (10-20); Creatinine Clr Calc Pharmacy 75.7 ml/min; Est GFR (African American) 74.9; Est GFR (Non-African American) 64.6; Potassium 3.7 mmol/L (3.5-5.1)
[2020-05-31 02:42] LABS: Partial Thromboplastin Time 54.5 Seconds (21.0-31.0)
[2020-05-31] MEDS: CEFEPIME 2,000 MG in SYRINGE 0 ML IV SCH ×3 (04:49→21:04)
[2020-05-31] MEDS ORDERED: INSULIN ASPART 100 UNITS/ML 3 ML PEN SC SCH (06:00)
[2020-05-31] MEDS ORDERED: FUROSEMIDE 40 MG/4 ML VIAL IV ONE ×3 (07:07→17:24)
[2020-05-31] MEDS: Heparin IV Standard *NO* Bolus IV SCH ×3 (07:25→07:27)
[2020-05-31] MEDS: POTASSIUM CHLORIDE CRTAB 20 MEQ TABCR PO SCH (08:23)
[2020-05-31] MEDS: GABAPENTIN 300 MG CAP PO SCH ×3 (08:23→21:02)
[2020-05-31] MEDS: ATORVASTATIN 40 MG TAB PO SCH (08:26)
[2020-05-31] MEDS ORDERED: INSULIN GLARGINE SOLOSTAR 100 UNITS/ML 3 ML PEN SC ONE (09:00)
--- NOTE | 2020-05-31 09:46 | XRay Report ---
XR chest 1V portable HISTORY: 64 years-old Male CHF acute shortness of breath with congestive heart failure COMPARISON: CTA chest 05/30/2020, chest radiograph 05/28/2020 TECHNIQUE: Portable AP view of the chest FINDINGS: Cardiac silhouette is moderately enlarged. Pulmonary vascular congestion with interstitial coarsening . Trace pleural effusions. Subtle airspace opacities of the bilateral midlung distributions redemonst rated. No pneumothorax. Degenerative changes of the shoulders and 9. IMPRESSION: 1. Cardiomegaly with pulmonary edema. 2. Trace pleural effusions. 3. Patchy subtle airspace opacities of the midlung distributions are better seen on comparison CTA an d likely represent areas of alveolar pulmonary edema with superimposed pneumonitis considered less li candido. ACT 112: Negative or not required by law. The above report was generated using voice recognition software. It may contain grammatical, syntax o r spelling errors. Electronically signed by: Jaspreet Lucas M.D. 05/31/2020 9:45 AM
--- NOTE | 2020-05-31 10:01 | Cardiology Progress Note ---
Date of Service May 31, 2020 Assessment & Plan (1) Non-ST elevation (NSTEMI) myocardial infarction: (2) CHF (congestive heart failure): (3) Right BKA infection: (4) Chronic refractory osteomyelitis of right lower leg: (5) Emphysema of lung: (6) PAD (peripheral artery disease): (7) DM type 2 (diabetes mellitus, type 2): Patient suffered NSTEMI in the evening 05/29/2020. IV heparin infusing. No recurrent chest discomfort. Echocardiogram demonstrating ischemic cardiomyopathy with ejection fraction of 35%. Patient appears compensated today. Continue Lasix 40 mg IV daily. Maintain even to negative fluid balance. Restart metoprolol 12.5 mg twice daily. First dose now. In regard to patient's surgery, he is considered high risk for cardiovascular complications. Consider transfer to tertiary care, [facility], for surgical procedure. Patient is not an optimal cardiac catheterization candidate due to his severe peripheral vascular disease. Consider coronary angiography at tertiary care center. Continue conservative medical management with heparin. Restart aspirin 81 mg daily. Continue clopidogrel if operating surgeon is agreeable to perform AKA while on dual antiplatelet therapy. It appears, patient is not treated as an outpatient with statin therapy despite significant vascular disease, and longstanding diabetes. Recommend high intensity statin therapy. Admission and Anticipated Discharge Date Admission Date: May 28, 2020 Subjective 64-year-old patient seen and examined at the bedside. Admitted from wound care 05/28/2020 due to progressive, nonhealing right lower extremity osteomyelitis at BKA site. Patient developed chest discomfort in the evening 05/29/2020. Treated with IV Lasix with improvement. Troponins trending up to 4.0. Follow- up ECGs demonstrate anterior T wave inversions. Personal review of 2D transthoracic echocardiogram with ultrasonic contrast demonstrates ejection fraction of approximately 35%. Valvular structures were not well visualized. Patient denies chest pain or shortness of breath today. No recurrent chest discomfort this morning. Denies any pain related to his right-sided BKA wound. No palpitations, lightheadedness, dizziness, syncope, or near syncope. Telemetry reveals sinus rhythm. ECG: Normal sinus rhythm, incomplete left bundle branch block, ST and T wave abnormality, consider inferior lateral ischemia. Review of Systems Review of Systems: All systems reviewed & are unremarkable except as noted in HPI & below Physical Exam Constitutional: well developed, well nourished and + ill appearing; no acute distress Respiratory: Auscultation: + wheezes (Expiratory wheeze bilaterally); no rales and no rhonchi Cardiovascular: Rate/Rhythm: regular rate and regular rhythm Heart Sounds: normal S1 and normal S2; no murmur Vessels: no JVD Extremities: no edema Gastrointestinal (Abdomen): Inspection/Auscultation: normal bowel sounds Percussion/Palpation: abdomen nontender, no guarding and abdomen not rigid Musculoskeletal: Right lower extremity BKA E wound with erythema and drainage. Necrotic tissue visible. Neurologic: PERRL, EOMI, accommodation nl, no face palsy, no dysarthria Motor/Sensory: no tremor Psychiatric: Orientation: alert and oriented x 3 Results & Data ([facility]) Vital Signs (Past 12 Hours) Vital Signs Temp Pulse Pulse Resp BP Pulse Ox 05/31/20 07:24 36.9 C 88 20 147/74 H 95 05/31/20 07:21 82 05/31/20 04:41 37.4 C 87 20 147/75 H 95 05/30/20 23:28 36.6 C 94 H 20 158/72 H 92 (1) DM type 2 (diabetes mellitus, type 2) Diabetes mellitus complication detail: with unspecified neuropathy Diabetes mellitus complication status: with neurologic complications Diabetes mellitus rn long term care insulin use: with rn long term care use Qualified Code(s): E11.40 - Type 2 diabetes mellitus with diabetic neuropathy, unspecified; Z79.4 - retirement (current) use of insulin (2) Emphysema of lung Emphysema type: unspecified Qualified Code(s): J43.9 - Emphysema, unspecified
[2020-05-31] MEDS: HEPARIN SODIUM/DEXTROSE 25,000 UNITS/500 ML BAG IV SCH (11:33)
[2020-05-31] MEDS: ASPIRIN 81 MG CHEW PO SCH (11:33)
[2020-05-31] MEDS: METOPROLOL TARTRATE 25 MG TAB PO SCH ×2 (11:41→21:02)
[2020-05-31] MEDS: INSULIN ASPART 100 UNITS/ML 3 ML PEN SC SCH ×3 (11:54→20:57)
[2020-05-31] MEDS: VANCOMYCIN HCL 1,000 MG in SODIUM CHLORIDE 0.9% 250 ML IV SCH (14:05)
[2020-05-31 16:02] LABS: Potassium 3.7 mmol/L (3.5-5.1)
--- NOTE | 2020-05-31 17:22 | Hospitalist Progress Note ---
Date of Service May 31, 2020 Assessment & Plan (1) Chronic refractory osteomyelitis of right lower leg: Status post right BKA with chronic wound infection / possible persistent osteomyelitis. Wound cultures: 02/04/20 Klebsiella oxytoca + MSSA 02/18/20 MRSA 04/30/20 Pseudomonas aeruginosa No fever or leukocytosis. CRP = 8.42. Blood cultures obtained 05/28 and negative thus far. Wound culture obtained 05/28: Pseudomonas aeruginosa - sensitive to cefepime, meropenem, pip/tazo, tobra / resistant to quinolones. Klebsiella oxytoca - pansensitive Vascular Surgery, ID, Wound Care consulted. Receiving IV vancomycin + cefepime. Prudent to continue gram + / MRSA coverage in light of previous cultures and suspected osteomyelitis. Vanco vs dapto considered and discussed with Pharmacy. On statin for acute coronary syndrome, so best to continue vanco with caution. Continue cefepime for gram negative organisms. Right AKA recommended- surgery postponed due to acute cardiac issues. (2) Coronary artery disease: Coronary artery disease listed as problem in [employer] EMR, but patient unaware of any history of [place], angina, or other cardiac problems. Multiple risk factors for CAD. Cardiology consulted for chest pain & pulmonary edema. EKG showed SR with nonspecific ST / T-wave changes. Echo showed reduced LVEF (poor visualization). Serial troponins 0.883 >> 4.00 >> 2.9 Probable non-STEMI. Continue IV heparin, ASA, clopidogrel, metoprolol. LDL-c = 82. Start high-intensity statin therapy with atorvastatin 40 mg daily. Further evaluation and management per Cardiology. (3) CHF (congestive heart failure): CTA chest showed pulmonary edema. No prior history of CHF. Echo limited study, but showed LVEF ~ 35% (was 50-55% by echo on 05/06/20). Acute left ventricular systolic heart failure. Received IV furosemide with improvement. Consider adding POONAM or ARB if hemodynamics and renal function allow. Consider changing metoprolol tartrate to succinate once initial titration achieved. (4) Emphysema of lung: Bronchodilators PRN. (5) Diabetes mellitus type 2 with complications: DM type 2 complicated by peripheral vascular disease and probable coronary artery disease. Hgb A1c = 9.6. Pharmacy consulted for glycemic management. Lantus / NovoLog per protocol. FBS today = 234. (6) DVT prophylaxis: Initially received SQ heparin- held for surgery. Now on heparin infusion. (7) Discharge planning issues: Discharge disposition to be determined. Status post non-STEMI with CHF. Needs surgical intervention for RLE infection, but high risk due to cardiac status. May need further cardiac evaluation- high risk for any procedures. Transfer to tertiary care may be best. Patient known to [facility]. Family Medicine follow-up with Dr. Moses. Admission and Anticipated Discharge Date Admission Date: May 28, 2020 Subjective Recheck for chest pain, infection RLE, and other problems. Patient seen in their room around 1030. No further chest pain. Troponin peaked at 4 yesterday afternoon, then declined. Denies cough or SOB. 1 episode of N&V early last evening, resolved. RLE pain controlled with analgesics. Review of Systems: Constitutional- as noted above. Cardiac- as noted above. Pulmonary- as noted above. GI- no diarrhea, melena, hematochezia. - no urinary symptoms. Otherwise, as noted above. Physical Exam Constitutional: no acute distress Eyes: + anicteric sclerae Respiratory: no respiratory distress Auscultation: + rales (few bibasilar) Cardiovascular: Rate/Rhythm: regular rate and regular rhythm Heart Sounds: no gallop (exam limited, none appreciated) and no murmur (exam limited, none appreciated) Vessels: no JVD Extremities: no calf tenderness Gastrointestinal (Abdomen): normal bowel sounds, soft, nontender, no hepatosplenomegaly Musculoskeletal: Extremities: + extremities abnormal to inspection (LT AKA, RT BKA with wound) and no cyanosis Skin: no rashes, warm and dry Psychiatric: Orientation: alert and oriented x 3 Results & Data Results & Data ([facility]) Vital Signs (Past 12 Hours) Vital Signs Temp Pulse Pulse Resp BP Pulse Ox 05/31/20 15:58 36.7 C 75 17 144/76 H 96 05/31/20 11:38 36.6 C 87 18 155/80 H 95 05/31/20 07:24 36.9 C 88 20 147/74 H 95 05/31/20 07:21 82 Laboratory Results Laboratory Results - last 24 hr 05/30/20 05/30/20 05/30/20 16:20 20:53 22:27 WBC RBC Hgb Hct MCV MCH MCHC RDW Std Deviation RDW Coeff of Martin Plt Count MPV APTT 47.9 H* PTT Ratio 1.7 Sodium Potassium Chloride Carbon Dioxide Anion Gap BUN Creatinine Est Cr Clr Drug Dosing Est GFR ( Amer) Est GFR (Non-Af Amer) BUN/Creatinine Ratio Glucose POC Glucose 217 H Calcium Troponin I 4.000 H* NT-Pro-B Natriuret Pep Triglycerides Cholesterol LDL Cholesterol, Calc VLDL Cholesterol, Calc HDL Cholesterol Cholesterol/HDL Ratio Specimen Hemolysis Vancomycin Trough 05/30/20 05/31/20 05/31/20 22:27 00:08 01:52 WBC 17.81 H RBC 4.09 L Hgb 13.1 L Hct 38.6 L MCV 94.4 MCH 32.0 MCHC 33.9 RDW Std Deviation 48.1 H RDW Coeff of Martin 13.9 Plt Count 289 MPV 9.8 APTT PTT Ratio Sodium Potassium Chloride Carbon Dioxide Anion Gap BUN Creatinine Est Cr Clr Drug Dosing Est GFR ( Amer) Est GFR (Non-Af Amer) BUN/Creatinine Ratio Glucose POC Glucose 224 H Calcium Troponin I 3.300 H* NT-Pro-B Natriuret Pep Triglycerides Cholesterol LDL Cholesterol, Calc VLDL Cholesterol, Calc HDL Cholesterol Cholesterol/HDL Ratio Specimen Hemolysis Vancomycin Trough 05/31/20 05/31/20 05/31/20 01:52 01:52 01:52 WBC RBC Hgb Hct MCV MCH MCHC RDW Std Deviation RDW Coeff of Martin Plt Count MPV APTT 54.5 H* PTT Ratio 2.0 Sodium 138 Potassium 3.7 Chloride 106 Carbon Dioxide 27 Anion Gap 5.0 BUN 34 H Creatinine 1.17 Est Cr Clr Drug Dosing 75.7 Est GFR ( Amer) 74.9 Est GFR (Non-Af Amer) 64.6 BUN/Creatinine Ratio 28.8 H Glucose 209 H POC Glucose Calcium 9.0 Troponin I 2.900 H* NT-Pro-B Natriuret Pep 18925 H Triglycerides 107 Cholesterol 149 LDL Cholesterol, Calc 82 VLDL Cholesterol, Calc 21 HDL Cholesterol 46 Cholesterol/HDL Ratio 3 Specimen Hemolysis Vancomycin Trough 05/31/20 05/31/20 05/31/20 05:25 06:13 11:34 WBC RBC Hgb Hct MCV MCH MCHC RDW Std Deviation RDW Coeff of Martin Plt Count MPV APTT 56.0 H* PTT Ratio 2.0 Sodium Potassium Chloride Carbon Dioxide Anion Gap BUN Creatinine Est Cr Clr Drug Dosing Est GFR ( Amer) Est GFR (Non-Af Amer) BUN/Creatinine Ratio Glucose POC Glucose 234 H Calcium Troponin I NT-Pro-B Natriuret Pep Triglycerides Cholesterol LDL Cholesterol, Calc VLDL Cholesterol, Calc HDL Cholesterol Cholesterol/HDL Ratio Specimen Hemolysis Vancomycin Trough 20.5 05/31/20 05/31/20 05/31/20 11:43 15:31 16:31 WBC RBC Hgb Hct MCV MCH MCHC RDW Std Deviation RDW Coeff of Martin Plt Count MPV APTT PTT Ratio Sodium Potassium 3.7 Chloride Carbon Dioxide Anion Gap BUN Creatinine Est Cr Clr Drug Dosing Est GFR ( Amer) Est GFR (Non-Af Amer) BUN/Creatinine Ratio Glucose POC Glucose 201 H 160 H Calcium Troponin I NT-Pro-B Natriuret Pep Triglycerides Cholesterol LDL Cholesterol, Calc VLDL Cholesterol, Calc HDL Cholesterol Cholesterol/HDL Ratio Specimen Hemolysis Vancomycin Trough Microbiology 05/29/20 11:00 Knee,Right Gram Stain - Final 05/29/20 11:00 Knee,Right Wound Culture - Preliminary Pseudomonas aeruginosa Klebsiella oxytoca 05/28/20 12:41 Blood Aerobic Blood Culture - Preliminary No growth in Aerobic bottle after 48 hours. 05/28/20 12:41 Blood Anaerobic Blood Culture - Preliminary No growth in Anaerobic bottle after 48 hours. 05/28/20 12:49 Blood Aerobic Blood Culture - Preliminary No growth in Aerobic bottle after 48 hours. 05/28/20 12:49 Blood Anaerobic Blood Culture - Preliminary No growth in Anaerobic bottle after 48 hours. Diagnostic Findings PORTABLE CHEST X-RAY Reviewed by the undersigned and formally interpreted by Radiology: IMPRESSION: 1. Cardiomegaly with pulmonary edema. 2. Trace pleural effusions. 3. Patchy subtle airspace opacities of the midlung distributions are better seen on comparison CTA and likely represent areas of alveolar pulmonary edema with superimposed pneumonitis considered less likely. Electronically signed by: Jaspreet Lucas M.D. 05/31/2020 9:45 AM ECG Additional Comments: EKG performed at 0811 reviewed and demonstrated NSR at 85 / min, lateral ST & T- wave changes consistent with ischemia. (1) Emphysema of lung Emphysema type: unspecified Qualified Code(s): J43.9 - Emphysema, unspecified
[2020-05-31] MEDS ORDERED: POTASSIUM CHLORIDE CRTAB 20 MEQ TABCR PO ONE (18:00)
[2020-05-31] MEDS: INSULIN GLARGINE SOLOSTAR 100 UNITS/ML 3 ML PEN SC SCH (20:57)
[2020-06-01] MEDS: HEPARIN SODIUM/DEXTROSE 25,000 UNITS/500 ML BAG IV SCH ×2 (01:26→16:36)
[2020-06-01] MEDS: VANCOMYCIN HCL 1,000 MG in SODIUM CHLORIDE 0.9% 250 ML IV SCH ×2 (02:07→13:44)
[2020-06-01] MEDS: CEFEPIME 2,000 MG in SYRINGE 0 ML IV SCH ×2 (06:25→13:44)
--- NOTE | 2020-06-01 06:26 | Electrocardiogram Report ---
Test Reason : Blood Pressure : / mmHG Vent. Rate : 091 BPM Atrial Rate : 091 BPM P-R Int : 194 ms QRS Dur : 104 ms QT Int : 362 ms P-R-T Axes : 055 075 156 degrees QTc Int : 445 ms Poor data quality, interpretation may be adversely affected Normal sinus rhythm Abnormal ECG When compared with ECG of 30-MAY-2020 01:31, T wave inversion less evident in Inferior leads T wave inversion now evident in Lateral leads Confirmed by León Villarreal ([id number]) on 06/01/2020 6:26:43 AM Referred By: Tray Honeycutt Confirmed By:León Villarreal
--- NOTE | 2020-06-01 06:43 | Electrocardiogram Report ---
Test Reason : Blood Pressure : / mmHG Vent. Rate : 085 BPM Atrial Rate : 085 BPM P-R Int : 178 ms QRS Dur : 106 ms QT Int : 350 ms P-R-T Axes : 028 073 201 degrees QTc Int : 416 ms Normal sinus rhythm Incomplete left bundle block Abnormal ECG When compared with ECG of 30-MAY-2020 20:39, (unconfirmed) T wave inversion now evident in Anterior leads Confirmed by León Villarreal ([id number]) on 06/01/2020 6:42:49 AM Referred By: Tray Honeycutt Confirmed By:León Villarreal
[2020-06-01 07:11] LABS: Basophils # (auto) 0.02 K/uL (0-0.2); Basophils % (auto) 0.1 %; Eosinophils # (auto) 0.01 K/uL (0-0.5); Eosinophils % (auto) 0.1 %; Hematocrit (blood only) 39.5 % (42-52); Hemoglobin 13.3 g/dL (14.0-18.0); Immature Granulocytes # (auto) 0.07 K/uL (0.00-0.02); Immature Granulocytes % (auto) 0.4 %; Lymphocytes # (auto) 1.73 K/uL (1.2-3.4); Lymphocytes % (auto) 9.7 %; Mean Corpuscular Hgb Conc 33.7 g/dL (32-36); Mean Platelet Volume 9.9 fL (7.4-10.4); Monocytes # (auto) 1.42 K/uL (0.11-0.59); Neutrophils # (auto) 14.54 K/uL (1.4-6.5); Neutrophils % (auto) 81.7 %; Platelet Count 318 K/uL (130-400); RDW Coefficient of Variation 14.1 % (11.5-14.5); RDW Standard Deviation 48.7 fL (36.4-46.3); Red Blood Count 4.16 M/uL (4.7-6.1); White Blood Count 17.79 K/uL (4.8-10.8)
[2020-06-01 07:27] LABS: Partial Thromboplastin Ratio 2.2
[2020-06-01 07:38] LABS: BUN Creatinine Ratio 34.1 (10-20); C Reactive Protein 13.7 mg/dl (0-0.29); Calcium 8.7 mg/dl (8.5-10.1); Creatinine Clr Calc Pharmacy 79.8 ml/min; Est GFR (African American) 90.5; Est GFR (Non-African American) 78.1; Partial Thromboplastin Time 61.4 Seconds (21.0-31.0); Potassium 3.2 mmol/L (3.5-5.1)
[2020-06-01 07:57] LABS: Troponin I 2.12 ng/ml (0-0.045)
[2020-06-01] MEDS: INSULIN ASPART 100 UNITS/ML 3 ML PEN SC SCH ×3 (08:20→16:42)
[2020-06-01] MEDS: ASPIRIN 81 MG CHEW PO SCH (08:23)
[2020-06-01] MEDS: METOPROLOL TARTRATE 25 MG TAB PO SCH (08:24)
[2020-06-01] MEDS: ATORVASTATIN 40 MG TAB PO SCH (08:25)
[2020-06-01] MEDS: GABAPENTIN 300 MG CAP PO SCH ×2 (08:25→13:44)
[2020-06-01] MEDS: INSULIN GLARGINE SOLOSTAR 100 UNITS/ML 3 ML PEN SC SCH (08:25)
--- NOTE | 2020-06-01 08:56 | XRay Report ---
XR chest 1V portable HISTORY: Congestive heart failure. Shortness of breath. COMPARISON: Chest 05/31/2020. FINDINGS: No pneumothorax. No pleural effusions. The heart remains mildly enlarged. Diffuse interstit ial and vascular thickening consistent with mild pulmonary edema. This is similar to the prior study. Hazy appearance to the right lung base may represent an alveolar component of the edema. IMPRESSION: No significant change in the mild cardiomegaly and mild interstitial pulmonary edema. ACT 112: Negative or not required by law. Electronically signed by: Ladarius Whitney M.D. 06/01/2020 8:55 AM
[2020-06-01] MEDS ORDERED: POTASSIUM CHLORIDE CRTAB 20 MEQ TABCR PO ONE ×2 (09:45→16:00)
--- NOTE | 2020-06-01 10:15 | Hospitalist Progress Note ---
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 Followed by [facility] and [facility] ID. Recent wound cultures: 02/04/20 Klebsiella oxytoca + MSSA 02/18/20 MRSA 04/30/20 Pseudomonas aeruginosa Presented with worsening pain, erythema, drainage. Chills at home, but no fever or leukocytosis at time of admission. CRP = 8.42. Blood cultures obtained 05/28 and negative thus far. Wound culture obtained 05/28: Pseudomonas aeruginosa - sensitive to cefepime, meropenem, pip/tazo, tobra; resistant to quinolones. Klebsiella oxytoca - pansensitive Vascular Surgery, ID, Wound Care consulted. Received IV vancomycin + cefepime. Prudent to continue gram + / MRSA coverage in light of previous cultures and suspected osteomyelitis. Vanco vs dapto considered and discussed with Pharmacy. On statin for acute coronary syndrome, so best not to use daptomycin. WBC 10,550 >> 17,790. CRP 8.42 > 13.7. Continue IV vancomycin + cefepime. Surgical management postponed due to non-STEMI; reconsider after further input from Cardiology. (2) Coronary artery disease: Coronary artery disease listed as problem in [facility] EMR, but patient unaware of any history of PA, angina, or other cardiac problems. Never had a cardiac cath. Multiple risk factors for CAD- DM, dyslipidemia, extensive peripheral vascular disease. Developed chest pain and SOB evening of 05/29. Pulmonary embolism ruled out, but CTA showed pulmonary edema. EKG showed SR with nonspecific ST / T-wave changes. Cardiology consulted. Echo showed reduced LVEF (poor visualization). Serial troponins 0.883 >> 4.00 >> 2.1. Probable non-STEMI. Receiving aspirin, IV heparin, metoprolol, statin. LDL-c = 82. Start high-intensity statin therapy with atorvastatin 40 mg daily. Further evaluation and management per Cardiology. (3) CHF (congestive heart failure): CTA chest showed pulmonary edema. No prior history of CHF. Echo limited study, but showed LVEF ~ 35% (was 50-55% by echo on 05/06/20). Acute left ventricular systolic heart failure in setting of non-STEMI. Received IV furosemide with improvement. Consider adding POONAM or ARB if hemodynamics and renal function allow. Consider changing metoprolol tartrate to succinate once initial titration achieved. Hold furosemide this morning due to hypokalemia. Follow and titrate therapy. (4) Cerebrovascular disease: History of ischemic stroke and severe carotid artery disease. Continue antiplatelet medications, statin, and management of diabetes. (5) Emphysema of lung: Bronchodilators PRN. (6) Diabetes mellitus type 2 with complications: DM type 2 complicated by peripheral vascular disease and probable coronary artery disease. Hgb A1c = 9.6. Pharmacy consulted for glycemic management. Lantus / NovoLog per protocol. FBS today = 140. (7) Dyslipidemia: LDL-c = 82. Started high-intensity statin therapy with atorvastatin 40 mg daily in light of non-STEMI and extensive peripheral vascular disease. (8) COVID-19 ruled out: COVID-19 screening performed at [facility] 05/28/20 (no symptoms or exposure). SARS-CoV-2 PCR negative. (9) DVT prophylaxis: Initially received SQ heparin- held for surgery. Now on heparin infusion. (10) Discharge planning issues: Status post non-STEMI with CHF. Needs surgical intervention for RLE infection, but high risk due to cardiac status. May need further cardiac evaluation in light of non-STEMI- high risk for any cardiac procedures. Transfer to tertiary care may be best. Patient known to [facility] and arrangements are being made for transfer when bed available. Accepting physician is Dr. Jean Marie Bentley. Family Medicine follow-up with Dr. Moses. Admission and Anticipated Discharge Date Admission Date: May 28, 2020 Subjective Recheck for non-STEMI, infection RLE, and other problems. Patient seen in their room around 0930. No further chest pain. No cough or SOB. No further nausea or vomiting. RLE pain controlled with analgesics. Review of Systems: Constitutional- as noted above. Cardiac- as noted above. Pulmonary- as noted above. GI- no N/V; no diarrhea, melena, hematochezia. - no urinary symptoms. Otherwise, as noted above. Physical Exam Constitutional: no acute distress Eyes: + anicteric sclerae Respiratory: normal respiratory effort, lungs clear to auscultation no respiratory distress Auscultation: + rales (few bibasilar) Cardiovascular: Rate/Rhythm: regular rate and regular rhythm Heart Sounds: no gallop (exam limited, none appreciated) and no murmur (exam limited, none appreciated) Vessels: no JVD Extremities: no calf tenderness Gastrointestinal (Abdomen): normal bowel sounds, soft, nontender, no hepatosplenomegaly Musculoskeletal: Extremities: + extremities abnormal to inspection (LT AKA, RT BKA bandaged) and no cyanosis Skin: no rashes, warm and dry Psychiatric: Orientation: alert and oriented x 3 Results & Data Results & Data ([facility]) Vital Signs (Past 12 Hours) Vital Signs Temp Pulse Pulse Resp BP Pulse Ox 06/01/20 07:42 37.0 C 75 19 147/71 H 93 06/01/20 07:35 74 06/01/20 03:44 36.5 C 77 18 139/75 97 05/31/20 22:43 36.9 C 87 16 148/77 H 95 Laboratory Results 06/01/20 06:57 06/01/20 06:57 Microbiology 05/29/20 11:00 Knee,Right Gram Stain - Final 05/29/20 11:00 Knee,Right Wound Culture - Preliminary Pseudomonas aeruginosa Klebsiella oxytoca 05/28/20 12:41 Blood Aerobic Blood Culture - Preliminary No growth in Aerobic bottle after 48 hours. 05/28/20 12:41 Blood Anaerobic Blood Culture - Preliminary No growth in Anaerobic bottle after 48 hours. 05/28/20 12:49 Blood Aerobic Blood Culture - Preliminary No growth in Aerobic bottle after 48 hours. 05/28/20 12:49 Blood Anaerobic Blood Culture - Preliminary No growth in Anaerobic bottle after 48 hours. Diagnostic Findings PORTABLE CHEST X-RAY Reviewed by the undersigned and formally interpreted by Radiology: IMPRESSION: No significant change in the mild cardiomegaly and mild interstitial pulmonary e aliza. Electronically signed by: Ladarius Whitney M.D. 06/01/2020 8:55 AM (1) Emphysema of lung Emphysema type: unspecified Qualified Code(s): J43.9 - Emphysema, unspecified
[2020-06-01] MEDS: POTASSIUM CHLORIDE CRTAB 20 MEQ TABCR PO SCH (10:28)
--- NOTE | 2020-06-01 10:36 | Discharge Summary ---
Date of Service Date of Admission: 05/28/20 Date of Discharge: 06/01/20 Admission HPI Per Admitting Provider This is a 64 y/o male with a complicated history including PAD, s/p left AKA, s/p right BKA, IRDM, reflux esophagitis, COPD/emphysema, dyslipidemia, prior CVA, CAD, bilateral carotid artery disease, and prior hx of osteomyelitis who presents from wound care due to progressive in the right BKA stump with concern for persistent osteomyelitis that would require additional surgical intervention. Pt was most recently admitted at this facility in February with infection of the right BKA site and was found to have osteomyelitis. He was transferred to [facility] [place] [place] due to no vascular surgeon available in this facility and potential need for AKA. However, pt apparently refused the recommended AKA at the time and instead underwent wound exploration with sharp excisional debridement of skin and subcutaneous tissue. Culture from the procedure MSSA and MRSA. Pt was sent home on IV antibiotics, which he apparently finished the end of March. Pt reports that he was feeling better while on the IV antibiotics but developed recurrent burning pain in the stump shortly after finishing. The pain has continued to worsen in severity and duration since then. It is now constant although waxes and wanes, better with letting the stump hang over the edge of the bed or chair. It is worse when he is lying flat and keeps him up at night. He reports not sleeping well for weeks. He notes occasional chills but denies documented fevers. He was seen by ID on 05/22 who d/c'd his PICC line and recommended an MRI to evaluate for ongoing infection (which pt has not yet had). He was seen by wound care today who were concerned about recurrent osteomyelitis and referred pt to [facility] for admission through the ED. Pt is now willing to undergo AKA. He does note two episodes of dizziness resulting in falls (out of his wheelchair) over the last week, most recently on Tuesday (5 days ago). No LOC. Did not hit head. Did have an abrasion on right knee and has persistent pain in right side since then. Denies pain with deep breathing or shortness of breath. Principal Diagnosis wound infection right below the knee amputation with suspected osteomyelitis Pseudomonas aeruginosa Klebsiella oxytoca OTHER ACUTE / NEW DIAGNOSES non-ST elevation myocardial infarction acute left ventricular systolic heart failure (HFrEF) hypokalemia Discharge Exam Constitutional no acute distress Eyes + anicteric sclerae Respiratory no respiratory distress Auscultation: + rales (few bibasilar) Cardiovascular Rate/Rhythm: regular rate and regular rhythm Heart Sounds: no gallop (exam limited, none appreciated) and no murmur (exam limited, none appreciated) Vessels: no JVD Extremities: no calf tenderness Gastrointestinal (Abdomen) normal bowel sounds, soft, nontender, no hepatosplenomegaly Musculoskeletal Extremities: + extremities abnormal to inspection (LT AKA, RT BKA bandaged) and no cyanosis Skin no rashes, warm and dry Psychiatric Orientation: alert and oriented x 3 Discharge Data Allergies Allergy/AdvReac Type Severity Reaction Status Date / Time No Known Allergies Allergy Verified 05/28/20 12:18 Consultations 05/28/20 15:26 ED Decision to Admit Stat 05/28/20 18:18 Consult Infectious Diseases Routine Consult Vascular Surgery Routine Consult Wound Care Provider Stat 05/30/20 08:00 Consult Cardiology Routine 06/01/20 09:38 Burn CD for patient Routine Procedures Performed Operation Date: 05/30/20 13:50 <No data on this case meets the specified criteria> Ordered Studies 05/28/20 16:03 MR lower leg RT wo con Stat 05/28/20 18:18 CT abd pelvis wo con Urgent 05/30/20 01:19 CT angio chest PE protocol Urgent Diabetes Follow up Diabetes Follow-up Needed for HgbA1c >9% Hospital Course (1) Chronic refractory osteomyelitis of right lower leg: Status post right BKA with chronic wound infection / possible persistent osteomyelitis. Followed by [facility] and [facility]. Recent wound cultures: 02/04/20 Klebsiella oxytoca + MSSA 02/18/20 MRSA 04/30/20 Pseudomonas aeruginosa Presented with worsening pain, erythema, drainage. Chills at home, but no fever or leukocytosis at time of admission. CRP = 8.42. Blood cultures obtained 05/28 and negative thus far. Wound culture obtained 05/28: Pseudomonas aeruginosa - sensitive to cefepime, meropenem, pip/tazo, tobra; resistant to quinolones. Klebsiella oxytoca - pansensitive Vascular Surgery, ID, Wound Care consulted. Received IV vancomycin + cefepime. Prudent to continue gram + / MRSA coverage in light of previous cultures and suspected osteomyelitis. Vanco vs dapto considered and discussed with Pharmacy. On statin for acute coronary syndrome, so best not to use daptomycin. WBC 10,550 >> 17,790. CRP 8.42 > 13.7. Continue IV vancomycin + cefepime. Surgical management postponed due to non-STEMI; reconsider after further input from Cardiology. (2) Coronary artery disease: Coronary artery disease listed as problem in [facility] EMR, but patient unaware of any history of CA, angina, or other cardiac problems. Never had a cardiac cath. Multiple risk factors for CAD- DM, dyslipidemia, extensive peripheral vascular disease. Developed chest pain and SOB evening of 05/29. Pulmonary embolism ruled out, but CTA showed pulmonary edema. EKG showed SR with nonspecific ST / T-wave changes. Cardiology consulted. Echo showed reduced LVEF (poor visualization). Serial troponins 0.883 >> 4.00 >> 2.1. Probable non-STEMI. Receiving aspirin, IV heparin, metoprolol, statin. LDL-c = 82. Start high-intensity statin therapy with atorvastatin 40 mg daily. Further evaluation and management per Cardiology. (3) CHF (congestive heart failure): CTA chest showed pulmonary edema. No prior history of CHF. Echo limited study, but showed LVEF ~ 35% (was 50-55% by echo on 05/06/20). Acute left ventricular systolic heart failure in setting of non-STEMI. Received IV furosemide with improvement. Consider adding POONAM or ARB if hemodynamics and renal function allow. Consider changing metoprolol tartrate to succinate once initial titration achieved. Hold furosemide this morning due to hypokalemia. Follow and titrate therapy. (4) Cerebrovascular disease: History of ischemic stroke and severe carotid artery disease. Continue antiplatelet medications, statin, and management of diabetes. (5) Emphysema of lung: Bronchodilators PRN. (6) Diabetes mellitus type 2 with complications: DM type 2 complicated by peripheral vascular disease and probable coronary artery disease. Hgb A1c = 9.6. Pharmacy consulted for glycemic management. Lantus / NovoLog per protocol. FBS day of discharge = 140. (7) Dyslipidemia: LDL-c = 82. Started high-intensity statin therapy with atorvastatin 40 mg daily in light of non-STEMI and extensive peripheral vascular disease. (8) Hypokalemia: K morning of transfer was 3.2. Furosemide held. Received KCl 40 mEq PO. Repeat K at 14:44 = 3.3. Additional does of KCl 20 mEq given. Follow. (9) COVID-19 ruled out: COVID-19 screening performed at [facility] 05/28/20 (no symptoms or exposure). SARS-CoV-2 PCR negative. (10) DVT prophylaxis: Initially received SQ heparin- held for surgery. Now on heparin infusion. (11) Discharge planning issues: Status post non-STEMI with CHF. Needs surgical intervention for RLE infection, but high risk due to cardiac status. May need further cardiac evaluation in light of non-STEMI- high risk for any cardiac procedures. Transfer to tertiary care may be best. Patient known to [facility] and arrangements are being made for transfer when bed available. Accepting physician is Dr. Jean Marie Bentley. Family Medicine follow-up with Dr. Moses. Home Medications aspirin 81 mg tablet,delayed release 81 mg PO DAILY 04/30/20 [History Confirmed 05/28/20] clopidogrel 75 mg tablet 75 mg PO DAILY 04/30/20 [History Confirmed 05/28/20] gabapentin 300 mg capsule 300 mg PO TID 04/30/20 [History Confirmed 05/28/20] insulin aspart U-100 100 unit/mL subcutaneous solution 1 sliding scale dose SUBCUT USEASDIRECTD 04/30/20 [History Confirmed 05/28/20] insulin glargine 100 unit/mL subcutaneous solution 60 unit SUBCUT DAILY ml 04/30/20 [History Confirmed 05/28/20] oxycodone 10 mg tablet 10 mg PO Q6H PRN 04/30/20 [History Confirmed 05/28/20] hydrocodone-acetaminophen 1 - 2 tab PO Q8H PRN 05/28/20 [History Confirmed 05/28/20] polyethylene glycol 3350 [Miralax] 17 g PO DAILY PRN 05/28/20 [History Confirmed 05/28/20] Active Inpatient Medications Aspirin (Aspirin 81 Mg Chew) 81 mg PO DAILY VANDANA Stop: 06/30/20 10:29 Last Admin: 06/01/20 08:23 Dose: 81 mg Documented by: Atorvastatin Calcium (Atorvastatin 40 Mg Tab) 40 mg PO QAM VANDANA Stop: 06/30/20 08:59 Last Admin: 06/01/20 08:25 Dose: 40 mg Documented by: Dextrose (Dextrose 50% 50 Ml Syringe) 25 - 50 ml IV UD PRN; Protocol PRN Reason: Hypoglycemia Protocol Stop: 06/27/20 18:14 Furosemide (Furosemide 40 Mg Tab) 40 mg PO BID17 VANDANA Stop: 06/29/20 16:59 Last Admin: 05/30/20 17:10 Dose: Not Given (held 06/01 a.m. due to hypokalemia) Documented by: Gabapentin (Gabapentin 300 Mg Cap) 300 mg PO TID VANDANA Stop: 06/27/20 20:59 Last Admin: 06/01/20 08:25 Dose: 300 mg Documented by: Glucagon (Glucagon For Inj 1 Mg Vial) 1 mg IM UD PRN; Protocol PRN Reason: Hypoglycemia Protocol Stop: 06/27/20 18:14 Glucose (Glucose 40% Gel 15 Gm Tube) 15 - 30 gm PO UD PRN; Protocol PRN Reason: Hypoglycemia Protocol Stop: 06/27/20 18:14 Glucose (Glucose 10 Tabs/Tube) 4 - 8 tabs PO UD PRN; Protocol PRN Reason: Hypoglycemia Protocol Stop: 06/27/20 18:14 Hydromorphone HCl (Hydromorphone Inj 2 Mg/Ml Syr/Vial) 2 mg IV Q3H PRN PRN Reason: Pain Stop: 06/11/20 16:16 Last Admin: 05/30/20 03:08 Dose: 2 mg Documented by: Cefepime HCl 2,000 mg/ Syringe 20 mls @ 5 mls/min IV Q8H VANDANA; Protocol Stop: 07/09/20 13:59 Last Admin: 06/01/20 06:25 Dose: 5 mls/min Documented by: Sodium Chloride (Nss) 250 mls @ 15 mls/hr IV .[id number] PRN PRN Reason: For Transfusion Stop: 06/29/20 07:59 Heparin Sodium/Dextrose (Heparin Sodium/Dextrose) 25,000 units in 500 mls @ 33 mls/hr IV .[id number] VANDANA; Protocol Stop: 06/29/20 02:59 Last Titration: 06/01/20 07:45 Dose: 1,650 units/hr, 33 mls/hr Documented by: infusion held at time of DC for transportation Vancomycin HCl 1,000 mg/ (Sodium Chloride) 270 mls @ 200 mls/hr IV Q12H VANDANA Stop: 07/12/20 13:59 Last Infusion: 06/01/20 03:41 Dose: Infused Documented by: Insulin Aspart (Insulin Aspart 100 Units/Ml 3 Ml Pen) 0 units SC ACHS [facility]; Protocol Stop: 06/30/20 07:29 Last Admin: 06/01/20 08:20 Dose: Not Given Documented by: Insulin Glargine (Insulin Glargine Solostar 100 Units/Ml 3 Ml Pen) 30 units SC BID [facility]; Protocol Stop: 07/01/20 20:59 Ipratropium [place] (Ipratropium [place] Neb Soln 0.02% 2.5 Ml Vial) 0.5 mg INH Q4H PRN PRN Reason: Shortness Of Breath Or Wheezing Stop: 06/29/20 01:29 Levalbuterol HCl (Levalbuterol 1.25mg/0.5ml Neb) 1.25 mg INH Q4H PRN PRN Reason: Shortness Of Breath Or Wheezing Stop: 06/29/20 01:29 Metoprolol Tartrate (Metoprolol Tartrate 25 Mg Tab) 12.5 mg PO BID VANDANA Stop: 06/30/20 10:29 Last Admin: 06/01/20 08:24 Dose: 12.5 mg Documented by: Miscellaneous (Carbohydrates For Hypoglycemia ) 15 - 30 gm PO UD PRN PRN Reason: Hypoglycemia Treatment Stop: 06/27/20 18:14 Miscellaneous Information (Vancomycin Consult Active) 1 ea N/A UD PRN PRN Reason: Consult Stop: 06/27/20 16:04 Miscellaneous Information (Pharmacy Glycemic Mgmt Consult) 1 ea N/A UD PRN PRN Reason: Consult Stop: 06/27/20 18:05 Nitroglycerin (Nitroglycerin Sl 0.4 Mg/Tab Tab) 0.4 mg SL PRN PRN PRN Reason: Chest Pain Stop: 06/29/20 17:35 Ondansetron HCl (Ondansetron Inj 2 Mg/Ml 2 Ml Vial) 4 mg IV Q6H PRN PRN Reason: Nausea Stop: 06/29/20 17:35 Last Admin: 05/31/20 00:35 Dose: 4 mg Documented by: Oxycodone HCl (Oxycodone Hcl Ir 5 Mg Tab (Immediate Release)) 10 mg PO Q6H PRN PRN Reason: Pain Stop: 06/11/20 18:17 Last Admin: 05/29/20 05:18 Dose: 10 mg Documented by: Potassium Chloride (Potassium Chloride Crtab 20 Meq Tabcr) 20 meq PO BID VANDANA Stop: 07/01/20 20:59 06/01/20 06:57 06/01/20 06:57 Microbiology 05/29/20 11:00 Knee,Right Gram Stain - Final 05/29/20 11:00 Knee,Right Wound Culture - Preliminary Pseudomonas aeruginosa Klebsiella oxytoca 05/28/20 12:41 Blood Aerobic Blood Culture - Preliminary No growth in Aerobic bottle after 48 hours. 05/28/20 12:41 Blood Anaerobic Blood Culture - Preliminary No growth in Anaerobic bottle after 48 hours. 05/28/20 12:49 Blood Aerobic Blood Culture - Preliminary No growth in Aerobic bottle after 48 hours. 05/28/20 12:49 Blood Anaerobic Blood Culture - Preliminary No growth in Anaerobic bottle after 48 hours. Total Time Total Time Spent Total Time Spent (In Minutes): 50 Discharge Plan Discharge Items Patient Disposition: Transfer Acute Care Hospital Reason For Visit: INFECTED RIGHT BKA SURGICAL WOUND Discharge Diagnosis: infected right BKA surgical wound non-STEMI CHF Activity: Resume your previous activity Non-emergency contact: Primary Care Provider, Hospitalist, Surgeon and Concrete Placement Equipment Operator Call non-emergency contact if: you have any medication questions, your symptoms worsen and your temperature is above 101 Follow-up/Referrals: Zion Moses MD [Primary Care Provider] - Diet: Carb Consistent or DM2 and Heart Healthy Addtl Attending Provider Instructions: PRECAUTIONS: skin precautions reposition at least q 2 hours DVT PROPHYLAXIS: currently receiving IV heparin Diagnostic images from this hospitalization are being transmitted to [place] PACS. Echo images are being copied and should accompany patient. Please note that medications listed in the DC instructions are the patient's home meds prior to admission. Current inpatient meds will be listed in the discharge summary at the end of "Hospital Course. Thank you for receiving this patient in transfer. Please call or TigerText if you have any questions. Andrew Kevin Pending Studies at Discharge: No Stand-Alone Forms: My [facility] Skilled Items Patient informed of condition?: Yes DNR: No Discharge Level of Care: Other Communicable Disease: Yes Discharge Prognosis: Stable Lines: Peripheral IV Urinary Catheter: No Medications and DC Order Prescriptions: Continued aspirin 81 mg tablet,delayed release (DR/EC) 81 mg PO DAILY RF: 0 clopidogrel [Plavix] 75 mg tablet 75 mg PO DAILY RF: 0 gabapentin 300 mg capsule 300 mg PO TID RF: 0 Lantus U-100 Insulin 100 unit/mL solution 60 unit subcut DAILY RF: 0 insulin aspart U-100 [Novolog U-100 Insulin aspart] 100 unit/mL solution 1 sliding scale dose subcut USEASDIRECTD RF: 0 oxycodone 10 mg tablet 10 mg PO Q6H PRN (Reason: Pain) RF: 0 hydrocodone-acetaminophen 5-325 mg tablet 1 - 2 tab PO Q8H PRN (Reason: Severe Pain (Scale Score 7-10)) RF: 0 polyethylene glycol 3350 [Miralax] 17 gram/dose Powder 17 g PO DAILY PRN (Reason: Constipation) RF: 0 Admission Data Admit Date/Time: 05/28/20 15:52 Attending Provider: Andrew Brown Admit Provider: Ingrid Teran Primary Care Provider: Zion Moses Other Providers: Ingrid Teran ; Tray Honeycutt ; Ford Jacobsen ; Skip Vargas ; Jacob Rooney I. ; Hans Saavedra II ; Nazanin Nick ; Deep Siddiqui ; Syed Myles ; [facility] ; Willis Blood ; Kris Mcnulty ; Denys Steiner ; David Hauser ; John Paul Grier ; Deep Du ; Naty Hoang ; [place] ; Nash Le
[2020-06-01] MEDS ORDERED: VANCOMYCIN TROUGH ONE (11:30)
[2020-06-01] MEDS ORDERED: POTASSIUM CHLORIDE CRTAB 20 MEQ TABCR PO SCH (21:00)
[2020-06-01] MEDS ORDERED: INSULIN GLARGINE SOLOSTAR 100 UNITS/ML 3 ML PEN SC SCH (21:00)
[2020-06-07] MEDS ORDERED: VANCOMYCIN TROUGH ONE (11:30)
== END 2020-06-01 19:30 | disposition home health service (06) | DRG 564 ==
LOC: ED 11:11 → SUATTDRO 15:52 → 2S 15:52

== ENCOUNTER 2020-06-12 13:19 | Inpatient (IN) ==
[2020-06-12 14:26] LABS: Basophils # (auto) 0.05 K/uL (0-0.2); Basophils % (auto) 0.4 %; Eosinophils # (auto) 0.08 K/uL (0-0.5); Eosinophils % (auto) 0.6 %; Hematocrit (blood only) 32.8 % (42-52); Hemoglobin 10.7 g/dL (14.0-18.0); Immature Granulocytes # (auto) 0.06 K/uL (0.00-0.02); Immature Granulocytes % (auto) 0.4 %; Lymphocytes # (auto) 2.51 K/uL (1.2-3.4); Lymphocytes % (auto) 18.1 %; Mean Corpuscular Hemoglobin 31.8 pg (25-34); Mean Corpuscular Hgb Conc 32.6 g/dL (32-36); Mean Corpuscular Volume 97.6 fL (80-100); Mean Platelet Volume 10.2 fL (7.4-10.4); Monocytes # (auto) 0.68 K/uL (0.11-0.59); Monocytes % (auto) 4.9 %; Neutrophils # (auto) 10.51 K/uL (1.4-6.5); Neutrophils % (auto) 75.6 %; Platelet Count 474 K/uL (130-400); RDW Standard Deviation 52.9 fL (36.4-46.3); Red Blood Count 3.36 M/uL (4.7-6.1); White Blood Count 13.89 K/uL (4.8-10.8)
[2020-06-12 14:36] LABS: INR 1.2 (0.9-1.1); Partial Thromboplastin Ratio 0.8; Partial Thromboplastin Time 22.9 Seconds (21.0-31.0); Prothrombin Time 12.2 Seconds (9.0-12.0)
[2020-06-12 14:57] LABS: Alanine Aminotransferase 23 U/L (12-78); Albumin Globulin Ratio 0.5 (0.9-2); Albumin Level 2.4 gm/dl (3.4-5.0); Alkaline Phosphatase 105 U/L (45-117); Aspartate Aminotransferase 28 U/L (15-37); BUN Creatinine Ratio 22.9 (10-20); Bilirubin,Total 0.3 mg/dl (0.2-1); Blood Urea Nitrogen 26 mg/dl (7-18); Calcium 9.4 mg/dl (8.5-10.1); Carbon Dioxide 26 mmol/L (21-32); Chloride 103 mmol/L (98-107); Est GFR (African American) 78.1; Est GFR (Non-African American) 67.4; Glucose 232 mg/dl (70-99); Magnesium 2.3 mg/dl (1.8-2.4); Potassium 4.4 mmol/L (3.5-5.1); Sodium 134 mmol/L (136-145); Total Protein 7.4 gm/dl (6.4-8.2)
--- NOTE | 2020-06-12 15:05 | CT Scan Report ---
CT head/brain wo con CLINICAL HISTORY: 64 years-old Male with ams. Acutely altered mental status TECHNIQUE: Multiple axial CT images of the head were obtained without contrast. A dose lowering tech nique was utilized adhering to the principles of ALARA. CT DOSE: 537.48 mGy.cm COMPARISON: None. FINDINGS: No acute intracranial hemorrhage, midline shift, intracranial mass, hydrocephalus, territorial ischem ia or abnormal extra-axial collection. Age-related involutional changes with ex vacuo ventriculomegal y. Patchy white matter hypodensities suggest chronic microvascular ischemic disease. Cerebral vascula r calcifications are noted. Remote infarct of the right frontal lobe. The calvarium is intact. Mild mucosal thickening of the ethmoid air cells. Mastoid air cells are alberta ar. Soft tissues are unremarkable. Prior bilateral lens replacement. IMPRESSION: No acute process. ACT 112: Negative or not required by law. The above report was generated using voice recognition software. It may contain grammatical, syntax o r spelling errors. Electronically signed by: Jaspreet Lucas M.D. 06/12/2020 3:04 PM
--- NOTE | 2020-06-12 15:50 | Emergency Department Note ---
History of Present Illness General Chief complaint: Hyperglycemia Stated complaint: Hyperglycemia Time Seen by Provider: 06/12/20 13:31 History of Present Illness Provider complaint: Weakness and altered mental status Onset (ago): day(s) 1 Maximum Pain Intensity: 8 Associated symptoms: + confusion and + weakness; no chest pain, no cough, no fever/chills, no headaches, no nausea/vomiting, no seizure and no shortness of breath 64-year-old male presents emergency department for weakness. Patient states he had a feeling increasingly weak for the last 2 days. He denies any fevers. Denies any loss of consciousness. Denies any falls. Denies any chest pain or difficulty breathing. No abdominal pain. Per EMS the patient was found by family to be confused and lethargic today when they came to take him for Thanksgiving dinner. They took his blood sugar and was found 435. He was given 20 units of his NovoLog by his family members. Patient did take his oral narcotic pain medication for his recent AKA on the right side. Home Medications Medication Instructions Recorded Confirmed Type aspirin 81 mg tablet,delayed 81 mg PO QAM 04/30/20 06/12/20 History release clopidogrel 75 mg tablet 75 mg PO QAM 04/30/20 06/12/20 History gabapentin 300 mg capsule 300 mg PO TID 04/30/20 06/12/20 History insulin aspart U-100 100 unit/mL 1 sliding scale dose SUBCUT 04/30/20 06/12/20 History subcutaneous solution USEASDIRECTD insulin glargine 100 unit/mL 60 unit SUBCUT QPM ml 04/30/20 06/12/20 History subcutaneous solution oxycodone 10 mg tablet 10 mg PO Q6H PRN 04/30/20 06/12/20 History hydrocodone-acetaminophen 1 - 2 tab PO Q8H PRN 05/28/20 06/12/20 History polyethylene glycol 3350 [Miralax] 17 g PO DAILY PRN 05/28/20 06/12/20 History Allergies Allergy/AdvReac Type Severity Reaction Status Date / Time No Known Allergies Allergy Verified 06/12/20 14:57 Past Med/Surg History Medical History CAD in [place] artery Carotid artery disease S/P right CEA by Dr. Sheppard on 09/14/17. 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 PAD (peripheral artery disease) Peripheral vascular disease Right BKA infection Tobacco dependence Surgical History History of angioplasty of peripheral vessel L LEG left popliteal artery angioplasty and stent as left AT/peroneal/TP trunk angioplasty on 05/10/[address] Sheppard left AKA on 12/19/17 09/27/17 for angioplasty/stent of the left SFA, but noted to have a BK- popliteal occlusion (would need a left fem=>AT bypass). left common femoral endarterectomy with vein patch angioplasty and common femoral artery => anterior tibial artery bypass using non-reversed left great saphenous vein 10/20/2017. R LEG RSFA stent and, angioplasty of PT/peroneal artery 06/06/[address] Mosqueda S/P right TOMMIE/TP-trunk/peroneral/PT angioplasty by Dr. Mosqueda on 10/25/18. 02/2019 again prompted additional intervention He underwent bilateral common & external iliac artery stents (one 7 x 80 mm Everflex stent on each side) and right SFA/pop/TP-trunk angioplasty by Dr. Sheppard 04/03/19. 05/09/20 He underwent balloon angioplasty of right SFA/popliteal/TP-trunk/peroneral arteries and open amputation of the R 5th toe by Dr. Sheppard on 08/10/19. History of femoropopliteal bypass History of right below knee amputation 11/15/[address] Sheppard History of spinal fusion "05/[address] Reeder" Hx of AKA (above knee amputation) L 12/2018 Social History Smoking Status: Current every day smoker Tobacco Type: Cigarettes packs per day: 1; Years Smoked: 50; Cigarettes Per Day: 20; Second Hand Exposure: No; Do You Dip or Chew Tobacco: No; Tobacco Cessation Education Requested by Patient: No Hx Alcohol Use: Yes Alcohol type: beer Alcohol Intake Frequency: 2-4 x/Month Hx Substance Use: No Preferred Language: Gabonese Communication Ability: Effective Hay Baler Required: No Beliefs That Will Affect Care: None marital status: Current Living Situation: Significant Other Current Living Situation Comment: [facility] WITH [facility] current occupational status: retired How many Children do You have: 1 How many Children do You have Comment: LOCAL SON THAT IS ABLE TO HELP. ALSO HAS SISTER WHO IS ABLE TO HELP NEEDED. Other Information That Helps Us Care for You: No Feels Safe at Home: Yes Safety Concerns: Feels Safe At This Time during the past year weight has: increased > 10 lbs Assistive Devices: Glasses and Oxygen - Continuous Review of Systems A total of 10 systems reviewed and were otherwise negative Physical Exam Vital Signs Vital Signs - 24 hr 06/12/20 13:27 06/12/20 13:42 06/12/20 14:00 Temperature 37.2 C Temperature Source Oral Pulse Rate 92 H 94 H 94 H Pulse Rate from SpO2 Sensor Respiratory Rate 18 17 17 Respiratory Effort / Characteristics Non-Labored Respiratory Depth Normal Blood Pressure 121/71 Blood Pressure Mean 89 Pulse Oximetry 90 Oxygen Delivery Method Room Air Sepsis Recent Fever Within 48 Hours No Sepsis New/Unexplained Change in Mental Status No Sepsis Action Taken by Nursing No Action Required 06/12/20 14:30 Temperature Temperature Source Pulse Rate 89 Pulse Rate from SpO2 Sensor 89 Respiratory Rate 18 Respiratory Effort / Characteristics Respiratory Depth Blood Pressure Blood Pressure Mean Pulse Oximetry 93 Oxygen Delivery Method Sepsis Recent Fever Within 48 Hours Sepsis New/Unexplained Change in Mental Status Sepsis Action Taken by Nursing Physical Exam GENERAL: He is oriented to person, place, and time. He appears well-developed and well-nourished. He does not appear distressed. HENT: Exam performed. - Head: Normocephalic and atraumatic. - Right Ear: External ear normal. No mastoid tenderness. - Left Ear: External ear normal. No mastoid tenderness. - Mouth/Throat: The oropharynx is clear and moist. No trismus in the jaw. No dental abscesses or uvula swelling. No oropharyngeal exudate or tonsillar abscesses. EYES: Conjunctivae and EOM are normal. Pupils are equal, round, and reactive to light. Right eye exhibits no discharge. Left eye exhibits no discharge. No scleral icterus. NECK: Normal range of motion. Neck supple. No JVD present. No spinous process tenderness present. No carotid bruit present. No rigidity. No tracheal deviation and normal range of motion present. No Brudzinski's sign and no Kernig's sign noted. CV: Normal rate, regular rhythm, normal heart sounds and intact distal pulses. There is no peripheral edema. Palpable radial pulses bue. PULM/CHEST: Effort normal and breath sounds normal. No respiratory distress. No stridor. He has no wheezes. He has no rales. - Chest Wall: He exhibits no tenderness. ABD: The abdomen is soft. Bowel sounds are normal. He has no distension. No mass is present. There is no tenderness. There is no rebound, no guarding, no Canas's sign and no tenderness at McBurney's point. Rovsig negative. MUSC/SKEL: AKA of the right lower extremity. Stitches are in place. No surrounding erythema or warmth. No discharge or bleeding from the wound site. LYMPH: No cervical adenopathy. NEURO: He is alert and oriented to person, place, and time. He has normal strength. No cranial nerve deficit or sensory deficit. GCS eye subscore is 4. GCS verbal subscore is 5. GCS motor subscore is 6. SKIN: Skin is warm and dry. He is not diaphoretic. PSYCH: He has a normal mood and affect. Behavior is normal. Judgment and thought content normal. Course Course 1331: The patient was evaluated in room A10. A complete history and physical exam was performed. Cardiac monitoring: An order was placed for continuous cardiac monitoring. The monitor shows a rate of 90 with sinus rhythm 1616: Vital signs stable. Labs show leukocytosis of 13.8. Patient's blood glucose is 232. Patient's lactic acid is elevated 2.2. He is never had panda vated lactic acid in the past. Patient's troponin is elevated at 1.93. This is lower than his previous troponins. Patient not reporting any chest pain or difficulty breathing. His EKG shows no acute changes. Imaging shows no acute findings, no gas in his stump of the right lower extremity and no evidence of osteomyelitis. Patient has multiple comorbidities. [facility] who would seen him on his previous admission to this facility and he will evaluate him for admission today. Patient will be started on gentle hydration given his history of CHF and poor cardiac output and will be treated with empiric antibiotics vancomycin. Dr. Brown is in agreement with this plan. Medical Decision Making Laboratory Data Result diagrams: 06/12/20 14:11 06/12/20 14:11 Lab Results 06/12/20 06/12/20 06/12/20 Range/Units 13:24 14:11 14:11 WBC 13.89 H (4.8-10.8) K/uL RBC 3.36 L (4.7-6.1) M/uL Hgb 10.7 L (14.0-18.0) g/dL Hct 32.8 L (42-52) % MCV 97.6 (80-100) fL MCH 31.8 (25-34) pg MCHC 32.6 (32-36) g/dL RDW Std Deviation 52.9 H (36.4-46.3) fL RDW Coeff of Martin 15.0 H (11.5-14.5) % Plt Count 474 H (130-400) K/uL MPV 10.2 (7.4-10.4) fL Immature Gran % (Auto) 0.4 % Neut % (Auto) 75.6 % Lymph % (Auto) 18.1 % [place] % (Auto) 4.9 % Eos % (Auto) 0.6 % Baso % (Auto) 0.4 % Neut # (Auto) 10.51 H (1.4-6.5) K/uL Lymph # (Auto) 2.51 (1.2-3.4) K/uL [place] # (Auto) 0.68 H (0.11-0.59) K/uL Eos # (Auto) 0.08 (0-0.5) K/uL Baso # (Auto) 0.05 (0-0.2) K/uL Immature Gran # (Auto) 0.06 H (0.00-0.02) K/uL PT (9.0-12.0) Seconds INR (0.9-1.1) APTT (21.0-31.0) Seconds PTT Ratio Sodium (136-145) mmol/L Potassium (3.5-5.1) mmol/L Chloride (98-107) mmol/L Carbon Dioxide (21-32) mmol/L Anion Gap (3-11) BUN (7-18) mg/dl Creatinine (0.6-1.4) mg/dl Est Cr Clr Drug Dosing Est GFR ( Amer) Est GFR (Non-Af Amer) BUN/Creatinine Ratio (10-20) Glucose (70-99) mg/dl POC Glucose 292 H (70-99) mg/dl Lactate (0.4-2.0) mmol/L Calcium (8.5-10.1) mg/dl Magnesium (1.8-2.4) mg/dl Total Bilirubin (0.2-1) mg/dl AST (15-37) U/L ALT (12-78) U/L Alkaline Phosphatase (45-117) U/L Troponin I (0-0.045) ng/ml Total Protein (6.4-8.2) gm/dl Albumin (3.4-5.0) gm/dl Globulin (2.5-4.0) gm/dl Albumin/Globulin Ratio (0.9-2) Procalcitonin < 0.05 (0-0.5) ng/ml Specimen Hemolysis 06/12/20 06/12/20 06/12/20 Range/Units 14:11 14:11 14:45 WBC (4.8-10.8) K/uL RBC (4.7-6.1) M/uL Hgb (14.0-18.0) g/dL Hct (42-52) % MCV (80-100) fL MCH (25-34) pg MCHC (32-36) g/dL RDW Std Deviation (36.4-46.3) fL RDW Coeff of Martin (11.5-14.5) % Plt Count (130-400) K/uL MPV (7.4-10.4) fL Immature Gran % (Auto) % Neut % (Auto) % Lymph % (Auto) % [place] % (Auto) % Eos % (Auto) % Baso % (Auto) % Neut # (Auto) (1.4-6.5) K/uL Lymph # (Auto) (1.2-3.4) K/uL [place] # (Auto) (0.11-0.59) K/uL Eos # (Auto) (0-0.5) K/uL Baso # (Auto) (0-0.2) K/uL Immature Gran # (Auto) (0.00-0.02) K/uL PT 12.2 H (9.0-12.0) Seconds INR 1.2 H (0.9-1.1) APTT 22.9 (21.0-31.0) Seconds PTT Ratio 0.8 Sodium 134 L (136-145) mmol/L Potassium 4.4 (3.5-5.1) mmol/L Chloride 103 (98-107) mmol/L Carbon Dioxide 26 (21-32) mmol/L Anion Gap 5.0 (3-11) BUN 26 H (7-18) mg/dl Creatinine 1.13 (0.6-1.4) mg/dl Est Cr Clr Drug Dosing Not Reportable Est GFR ( Amer) 78.1 Est GFR (Non-Af Amer) 67.4 BUN/Creatinine Ratio 22.9 H (10-20) Glucose 232 H (70-99) mg/dl POC Glucose (70-99) mg/dl Lactate 2.2 H* (0.4-2.0) mmol/L Calcium 9.4 (8.5-10.1) mg/dl Magnesium 2.3 (1.8-2.4) mg/dl Total Bilirubin 0.3 (0.2-1) mg/dl AST 28 (15-37) U/L ALT 23 (12-78) U/L Alkaline Phosphatase 105 (45-117) U/L Troponin I 1.930 H* (0-0.045) ng/ml Total Protein 7.4 (6.4-8.2) gm/dl Albumin 2.4 L (3.4-5.0) gm/dl Globulin 5.0 H (2.5-4.0) gm/dl Albumin/Globulin Ratio 0.5 L (0.9-2) Procalcitonin (0-0.5) ng/ml Specimen Hemolysis Imaging Data Radiologist's Impression: CT head/brain wo con CLINICAL HISTORY: 64 years-old Male with ams. Acutely altered mental status TECHNIQUE: Multiple axial CT images of the head were obtained without contrast. A dose lowering technique was utilized adhering to the principles of ALARA. CT DOSE: 537.48 mGy.cm COMPARISON: None. FINDINGS: No acute intracranial hemorrhage, midline shift, intracranial mass, hydrocep halus, territorial ischemia or abnormal extra-axial collection. Age-related involutional changes with ex vacuo ventriculomegaly. Patchy white matter hypodensities suggest chronic microvascular ischemic disease. Cerebral vascular calcifications are noted. Remote infarct of the right frontal lobe. The calvarium is intact. Mild mucosal thickening of the ethmoid air cells. Mastoid air cells are clear. Soft tissues are unremarkable. Prior bilateral lens replacement. IMPRESSION: No acute process. ACT 112: Negative or not required by law. The above report was generated using voice recognition software. It may contain grammatical, syntax or spelling errors. Electronically signed by: Jaspreet Lucas M.D. 06/12/2020 3:04 PM Dictated: 06/12/201500Transcribed: 06/12/201500 ECG Data Indication: + altered mental status Rate (beats per minute): 92 Rhythm: + normal sinus ECG Intervals/blocks: + Normal QRS, + Normal [place] and + Normal QT-c Change: no significant change (T wave inversion in lead I to aVF. ST depression in lead V4, V5, V6. No significant change from EKG done on May 31, 2020) [facility] Narrative 1331: The patient was evaluated in room A10. A complete history and physical exam was performed. Cardiac monitoring: An order was placed for continuous cardiac monitoring. The monitor shows a rate of 90 with sinus rhythm 1616: Vital signs stable. Labs show leukocytosis of 13.8. Patient's blood glucose is 232. Patient's lactic acid is elevated 2.2. He is never had elevated lactic acid in the past. Patient's troponin is elevated at 1.93. This is lower than his previous troponins. Patient not reporting any chest pain or difficulty breathing. His EKG shows no acute changes. Imaging shows no acute findings, no gas in his stump of the right lower extremity and no evidence of osteomyelitis. Patient has multiple comorbidities. Discussed with the [facility] hospitalist team Dr. Brown who would seen him on his previous admission to this facility and he will evaluate him for admission today. Patient will be started on gentle hydration given his history of CHF and poor cardiac output and will be treated with empiric antibiotics vancomycin. Dr. Brown is in agreement with this plan. Impression & Plan Sepsis, Elevated troponin Discharge Plan Visit Data Chief Complaint: Hyperglycemia Stated Complaint: Hyperglycemia ED Provider: Yohannes Gaston Discharge Problem: Sepsis, Elevated troponin Patient Disposition: Being Evaluated by Hospitalist Forms Stand Alone Forms: [facility], Virtual Emergency Department, Important Visit Information Prescriptions Prescriptions: No Action aspirin 81 mg tablet,delayed release (DR/EC) 81 mg PO QAM RF: 0 clopidogrel [Plavix] 75 mg tablet 75 mg PO QAM RF: 0 gabapentin 300 mg capsule 300 mg PO TID RF: 0 Lantus U-100 Insulin 100 unit/mL solution 60 unit subcut QPM RF: 0 insulin aspart U-100 [Novolog U-100 Insulin aspart] 100 unit/mL solution 1 sliding scale dose subcut USEASDIRECTD RF: 0 oxycodone 10 mg tablet 10 mg PO Q6H PRN (Reason: Pain) RF: 0 hydrocodone-acetaminophen 5-325 mg tablet 1 - 2 tab PO Q8H PRN (Reason: Severe Pain (Scale Score 7-10)) RF: 0 polyethylene glycol 3350 [Miralax] 17 gram/dose Powder 17 g PO DAILY PRN (Reason: Constipation) RF: 0 Referrals Referrals: Zion Moses MD [Primary Care Provider] - Discharge Problem: Sepsis Qualifiers: Sepsis type: sepsis due to unspecified organism Sepsis acute organ dysfunction status: unspecified Qualified Code(s): A41.9 - Sepsis, unspecified organism
--- NOTE | 2020-06-12 15:52 | XRay Report ---
XR knee RT 1 or 2V routine HISTORY: 64 years-old Male ams recent aka acute right lower leg pain with recent above dictation COMPARISON: Right tibia and fibula radiographs 05/28/2020 TECHNIQUE: 2 views of the right knee FINDINGS: Postoperative changes compatible with recent above the knee amputation. Soft tissue swelling at the a mputation stump is noted with a 1.3 x 2.3 cm radiodensity suggestive of a residual bone fragment. Art erial calcifications with vascular stent graft. No acute fracture or osseous erosion. IMPRESSION: 1. Postoperative changes of recent [id number] amputation. 2. Soft tissue swelling at the amputation stump with 1.3 x 2.3 cm radiodensity suggestive of residual bone fragment. ACT 112: Negative or not required by law. The above report was generated using voice recognition software. It may contain grammatical, syntax o r spelling errors. Electronically signed by: Jaspreet Lucas M.D. 06/12/2020 3:50 PM
--- NOTE | 2020-06-12 15:56 | XRay Report ---
XR chest 1V portable HISTORY: 64 years-old Male SEPSIS acute sepsis COMPARISON: Chest radiograph 06/01/2020 TECHNIQUE: Portable AP view of the chest FINDINGS: Cardiac silhouette is enlarged, unchanged. Pulmonary vascular congestion with interstitial coarsening appears stable to slightly improved. Trace pleural effusions. No pneumothorax or new lobar airspace consolidation. Degenerative changes of the shoulders and spine. IMPRESSION: 1. Cardiomegaly with stable to slightly improved pulmonary edema. 2. Trace pleural effusions. ACT 112: Negative or not required by law. The above report was generated using voice recognition software. It may contain grammatical, syntax o r spelling errors. Electronically signed by: Jaspreet Lucas M.D. 06/12/2020 3:55 PM
[2020-06-12] MEDS ORDERED: VANCOMYCIN CONSULT ACTIVE PRN (16:10)
[2020-06-12] MEDS ORDERED: VANCOMYCIN HCL 1,750 MG in SODIUM CHLORIDE 0.9% 500 ML IV ONE (16:10)
[2020-06-12] MEDS ORDERED: SODIUM CHLORIDE 0.9% 500 ML IV SCH (16:15)
[2020-06-12] MEDS ORDERED: cefTRIAXone SODIUM 2,000 MG/70 ML BAG IV STA (16:35)
--- NOTE | 2020-06-12 17:00 | History & Physical Report ---
Date of Service June 12, 2020 Assessment & Plan (1) Elevated troponin: Troponin in ED 1.93. Known severe multi-vessel coronary artery disease with non-STEMI about 2 weeks ago. Troponin was 2.12 on 06/01/20. No chest pain, but experiencing dyspnea over past 1-2 days. EKG shows NSR with lateral ST depression, similar to previous tracings. Possible recurrent non-STEMI or demand ischemia. Cardiology consulted. Continue antiplatelet therapy with aspirin and clopidogrel. Anticoagulate with IV heparin. Titrate beta adriane- increase metoprolol succinate to 25 mg BID. Continue high-intensity statin. (2) Coronary artery disease: As discussed above. (3) CHF (congestive heart failure): History of ischemic cardiomyopathy with LVEF 35% per most recent echo. Exam reveals few bibasilar rales and slight JVD; no gallop appreciated. Chest x-ray shows cardiomegaly and pulmonary vascular congestion. Check pro-BNP. Furosemide 40 mg IV today x 1, then re-evaluate. Continue metoprolol succinate. Consider POONAM or ARB if hemodynamics and renal function allow (high risk for renal artery stenosis). (4) Leukocytosis: WBC 13,000. Afebrile. Lactate 2.2 --> 1.8. Procalcitonin < 0.05. Hemodynamically stable. Recent wound infection + osteomyelitis RLE (most recent wound culture grew Pseudomonas aeruginosa, Klebsiella oxytoca, and Group C beta strep; previous wo und culture grew MRSA). Subsequent right AKA. Possible sepsis (HR > 90, leukocytosis, elevated lactate). Wound does not appear to be infected. No cough; no infiltrates on chest x-ray. Urine does not appear to be infected. No diarrhea. Blood cultures obtained in ED and patient received IV vancomycin and ceftriaxone. DC antibiotics if no evidence of infection at 48 hours. (5) Altered mental status: Confused at home. Blood sugar at the time was > 400. CT head did not show any acute findings. Possible sepsis as discussed above. Probable toxic / metabolic encephalopathy secondary to hypoglycemia. (6) History of CVA (cerebrovascular accident): No acute findings on CT head. Continue antiplatelet therapy with aspirin and clopidogrel. Continue high-intensity statin. (7) Diabetes mellitus type 2 with complications: DM type 2 complicated by coronary artery disease and peripheral artery disease. Blood sugar in 400's at home. Lantus dose decreased during recent [place] [facility] Hgb A1c 9.6 on 05/30/20. Lantus / NovoLog per protocol. Will need ongoing diabetes education and support after discharge. (8) Dyslipidemia: LDL-c 82 on 05/31/20. Continue high-intensity statin therapy with atorvastatin. (9) Status post above-knee amputation of right lower extremity: S/P right AKA 06/03/20 at [facility] Wound does not appear to be infected. Follow-up with [facility] as scheduled. (10) COVID-19 ruled out: SARS-CoV-2 antigen screen negative (no COVID-19 symptoms; screening performed per protocol for admission). (11) DVT prophylaxis: Initially receiving IV heparin for possible acute coronary syndrome. (12) Discharge planning issues: Discharge disposition to be determined; probable DC to home with services. Family Medicine follow-up with Dr. Moses. Follow-up with [facility]. History of Present Illness Chief Complaint: confusion, high blood sugars Primary Care Provider: Zion Moses MD 64 YO male followed by Dr. Moses for Family Medicine. History of coronary artery disease, reduced LVEF, severe peripheral vascular disease, diabetes mellitus type 2, and other problems as outlined. 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 Admitted to [facility] 07/28/19 with persistent / worsening infection. Vascular Surgery was consulted and right AKA was anticipated. Patient suffered a non-STEMI before the surgery was performed. Echo showed segmental wall motion abnormalities with an LVEF of 35%. Patient was felt to be very high risk for cardiac procedures as well as surgical procedures on his RLE, so he was transferred to [facility] 06/01/20. Cardiac cath on 06/02/20 demonstrated severe multivessel disease with 90% stenosis of left main extending into trifurcation of LAD, ramus, and dominant circ, 99% stenosis mid left circ, 80% stenosis proximal ramus, 80% stenosis of proximal LAD, 80% stenosis of mid RCA. It was felt that patients severe coronary disease was inoperable and medical management was recommended. Right AKA was performed on 06/03/20. Closure of right AKA was performed on 06/06/20. He was discharged to home on 06/09/20 with home health services. Family visited him today and found him to be confused. Blood sugar at home was reportedly in the 400's. Family administered 20 units of NovoLog and he was brought to the ED. Lantus dose was decreased during his recent admission at [facility]. Patient reports that he has been taking it as instructed. He has noted polyuria and polydipsia for the past 1-2 days. No fever, chills, sweats. Some postop discomfort at right AKA surgical site; took oxycodone this morning. No chest pain, but somewhat SOB over last 24 hours. Allergies Allergy/AdvReac Type Severity Reaction Status Date / Time No Known Allergies Allergy Verified 06/12/20 14:57 Home Medications Medication Instructions Recorded Confirmed Type aspirin 81 mg tablet,delayed 81 mg PO QAM 04/30/20 06/12/20 History release clopidogrel 75 mg tablet 75 mg PO QAM 04/30/20 06/12/20 History gabapentin 300 mg capsule 300 mg PO TID 04/30/20 06/12/20 History insulin aspart U-100 100 unit/mL 1 sliding scale dose SUBCUT 04/30/20 06/12/20 History subcutaneous solution USEASDIRECTD insulin glargine 100 unit/mL 10 unit SUBCUT QPM ml 04/30/20 06/12/20 History subcutaneous solution polyethylene glycol 3350 [Miralax] 17 g PO DAILY PRN 05/28/20 06/12/20 History atorvastatin 80 mg PO DAILY 06/12/20 06/12/20 History metoprolol succinate 25 mg PO DAILY 06/12/20 06/12/20 History oxycodone 10 mg PO Q4H PRN 06/12/20 06/12/20 History Past Med/Surg History Medical History (Updated 06/12/20 @ 21:08 by Andrew Brown MD) CAD in [place] artery Carotid artery disease S/P right CEA by Dr. Sheppard on 09/14/17. L Occluded carotid artery Cerebrovascular disease CHF (congestive heart failure) Echo 05/30/20 LVEF 35%. 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 Cath [facility] [place]- severe diffuse multi-vessel disease. Medical management recommended Diabetes mellitus type 2 with complications Diabetic neuropathy Diabetic peripheral angiopathy Dyslipidemia Emphysema of lung GERD (gastroesophageal reflux disease) History of CVA (cerebrovascular accident) H/O right basal ganglia stroke in 2011. PAD (peripheral artery disease) Peripheral vascular disease Right BKA infection Tobacco dependence Surgical History (Updated 06/12/20 @ 20:32 by Andrew Brown MD) History of angioplasty of peripheral vessel L LEG left popliteal artery angioplasty and stent as left AT/peroneal/TP trunk angioplasty on 05/10/[address] Sheppard left AKA on 12/19/17 09/27/17 for angioplasty/stent of the left SFA, but noted to have a BK- popliteal occlusion (would need a left fem=>AT bypass). left common femoral endarterectomy with vein patch angioplasty and common femoral artery => anterior tibial artery bypass using non-reversed left great saphenous vein 10/20/2017. R LEG RSFA stent and, angioplasty of PT/peroneal artery 06/06/[address] Mosqueda S/P right TOMMIE/TP-trunk/peroneral/PT angioplasty by Dr. Mosqueda on 10/25/18. 02/2019 again prompted additional intervention He underwent bilateral common & external iliac artery stents (one 7 x 80 mm Everflex stent on each side) and right SFA/pop/TP-trunk angioplasty by Dr. Sheppard 04/03/19. 05/09/20 He underwent balloon angioplasty of right SFA/popliteal/TP-trunk/peroneral arteries and open amputation of the R 5th toe by Dr. Sheppard on 08/10/19. History of femoropopliteal bypass History of right below knee amputation 11/15/[address] Sheppard History of spinal fusion "05/[address] Reeder" Hx of AKA (above knee amputation) L 12/2018 Status post above-knee amputation of right lower extremity [facility] [place] Status post cardiac catheterization [facility] [place]/02/20- severe diffuse multi-vessel disease; medical management recommended Family History (Updated 06/12/20 @ 20:24 by Andrew Brown MD) Other Family history non-contributory Social History Smoking Status: Current every day smoker Tobacco Type: Cigarettes packs per day: 1; Years Smoked: 50; Cigarettes Per Day: 20; Second Hand Exposure: No; Do You Dip or Chew Tobacco: No; Tobacco Cessation Education Requested by Patient: No Hx Alcohol Use: Yes Alcohol type: beer Alcohol Intake Frequency: 2-4 x/Month Hx Substance Use: No Preferred Language: [place] Leonean Communication Ability: Effective Combination Machine Tender Required: No Beliefs That Will Affect Care: None marital status: Current Living Situation: Significant Other Current Living Situation Comment: [facility] WITH [facility] current occupational status: retired How many Children do You have: 1 How many Children do You have Comment: LOCAL SON THAT IS ABLE TO HELP. ALSO HAS SISTER WHO IS ABLE TO HELP NEEDED. Other Information That Helps Us Care for You: No Feels Safe at Home: Yes Safety Concerns: Feels Safe At This Time during the past year weight has: increased > 10 lbs Assistive Devices: Glasses and Oxygen - Continuous Review of Systems Constitutional: no fever Eyes: no diplopia and no worsening vision Ear, Nose, Mouth, Throat: no nasal congestion, no sinus pain/pressure and no sore throat Respiratory: as per Subjective / HPI Cardiovascular: as per Subjective / HPI Gastrointestinal: no nausea, no vomiting, no constipation, no diarrhea/loose stools, no blood in stools and no melena Musculoskeletal: postop pain RLE Integumentary: no rash Neurologic: no headache(s) Endocrine: as per Subjective / HPI Hematologic / Lymphatic: + easy bruising; no easy bleeding and no lymphadenopathy Physical Exam Physical Exam: VS- as noted Constitutional- no acute distress Eyes- PERRL, anicteric sclerae, conjunctivae normal ENMT- external ear and nose normal; edentulous; oropharynx clear Neck- trachea midline; no thyromegaly Respiratory- no respiratory distress; lungs clear except for few bibasilar rales Cardiovascular- RRR, I/ sys murmur at base, no gallop, no rub; slight JVD; normal capillary refill Chest- no abnormalities Abdomen- normal bowel sounds, soft, nontender, nondistended; no palpable masses or hepatosplenomegaly Musculoskeletal- s/p bilateral AKA's; surgical wound RLE sutured, without erythema or drainage; no cyanosis Skin- warm & dry; normal color; no rashes Neurologic- no facial palsy; no dysarthria or aphasia; motor strength extremities grossly intact Psychiatric- alert, oriented x 3; depressed affect Lymphatic- no cervical adenopathy Results & Data Results & Data ([facility]) Vital Signs (Past 12 Hours) Vital Signs Temp Pulse Resp BP Pulse Ox 06/12/20 14:30 89 18 93 06/12/20 14:00 94 H 17 06/12/20 13:42 94 H 17 06/12/20 13:27 37.2 C 92 H 18 121/71 90 Laboratory Results Laboratory Results - last 24 hr 06/12/20 06/12/20 06/12/20 13:24 14:11 14:11 WBC 13.89 H RBC 3.36 L Hgb 10.7 L Hct 32.8 L MCV 97.6 MCH 31.8 MCHC 32.6 RDW Std Deviation 52.9 H RDW Coeff of Martin 15.0 H Plt Count 474 H MPV 10.2 Immature Gran % (Auto) 0.4 Neut % (Auto) 75.6 Lymph % (Auto) 18.1 Ross % (Auto) 4.9 Eos % (Auto) 0.6 Baso % (Auto) 0.4 Neut # (Auto) 10.51 H Lymph # (Auto) 2.51 Ross # (Auto) 0.68 H Eos # (Auto) 0.08 Baso # (Auto) 0.05 Immature Gran # (Auto) 0.06 H PT INR APTT PTT Ratio Sodium Potassium Chloride Carbon Dioxide Anion Gap BUN Creatinine Est Cr Clr Drug Dosing Est GFR ( Amer) Est GFR (Non-Af Amer) BUN/Creatinine Ratio Glucose POC Glucose 292 H Lactate Calcium Magnesium Total Bilirubin AST ALT Alkaline Phosphatase Troponin I Total Protein Albumin Globulin Albumin/Globulin Ratio Procalcitonin < 0.05 Specimen Hemolysis 06/12/20 06/12/20 06/12/20 14:11 14:11 14:45 WBC RBC Hgb Hct MCV MCH MCHC RDW Std Deviation RDW Coeff of Martin Plt Count MPV Immature Gran % (Auto) Neut % (Auto) Lymph % (Auto) Ross % (Auto) Eos % (Auto) Baso % (Auto) Neut # (Auto) Lymph # (Auto) Ross # (Auto) Eos # (Auto) Baso # (Auto) Immature Gran # (Auto) PT 12.2 H INR 1.2 H APTT 22.9 PTT Ratio 0.8 Sodium 134 L Potassium 4.4 Chloride 103 Carbon Dioxide 26 Anion Gap 5.0 BUN 26 H Creatinine 1.13 Est Cr Clr Drug Dosing Not Reportable Est GFR ( Amer) 78.1 Est GFR (Non-Af Amer) 67.4 BUN/Creatinine Ratio 22.9 H Glucose 232 H POC Glucose Lactate 2.2 H* Calcium 9.4 Magnesium 2.3 Total Bilirubin 0.3 AST 28 ALT 23 Alkaline Phosphatase 105 Troponin I 1.930 H* Total Protein 7.4 Albumin 2.4 L Globulin 5.0 H Albumin/Globulin Ratio 0.5 L Procalcitonin Specimen Hemolysis 06/12/20 16:41 WBC RBC Hgb Hct MCV MCH MCHC RDW Std Deviation RDW Coeff of Martin Plt Count MPV Immature Gran % (Auto) Neut % (Auto) Lymph % (Auto) Ross % (Auto) Eos % (Auto) Baso % (Auto) Neut # (Auto) Lymph # (Auto) Ross # (Auto) Eos # (Auto) Baso # (Auto) Immature Gran # (Auto) PT INR APTT PTT Ratio Sodium Potassium Chloride Carbon Dioxide Anion Gap BUN Creatinine Est Cr Clr Drug Dosing Est GFR ( Amer) Est GFR (Non-Af Amer) BUN/Creatinine Ratio Glucose POC Glucose Lactate Pending Calcium Magnesium Total Bilirubin AST ALT Alkaline Phosphatase Troponin I Total Protein Albumin Globulin Albumin/Globulin Ratio Procalcitonin Specimen Hemolysis Diagnostic Findings PORTABLE CHEST X-RAY Reviewed by the undersigned and formally interpreted by Radiology: FINDINGS: Cardiac silhouette is enlarged, unchanged. Pulmonary vascular congestion with interstitial coarsening appears stable to slightly improved. Trace pleural effusions. No pneumothorax or new lobar airspace consolidation. Degenerative changes of the shoulders and spine. IMPRESSION: 1. Cardiomegaly with stable to slightly improved pulmonary edema. 2. Trace pleural effusions. Electronically signed by: Jaspreet Lucas M.D. 06/12/2020 3:55 PM X-RAY RIGHT LOWER EXTREMITY FINDINGS: Postoperative changes compatible with recent above the knee amputation. Soft tissue swelling at the amputation stump is noted with a 1.3 x 2.3 cm r adiodensity suggestive of a residual bone fragment. Arterial calcifications with vascular stent graft. No acute fracture or osseous erosion. IMPRESSION: 1. Postoperative changes of recent [id number] amputation. 2. Soft tissue swelling at the amputation stump with 1.3 x 2.3 cm radiodensity suggestive of residual bone fragment. Electronically signed by: Jaspreet Lucas M.D. 06/12/2020 3:[address] HEAD FINDINGS: No acute intracranial hemorrhage, midline shift, intracranial mass, hydrocephalus, territorial ischemia or abnormal extra-axial collection. Age-related involutional changes with ex vacuo ventriculomegaly. Patchy white matter hypodensities suggest chronic microvascular ischemic disease. Cerebral vascular calcifications are noted. Remote infarct of the right frontal lobe. The calvarium is intact. Mild mucosal thickening of the ethmoid air cells. Mastoid air cells are clear. Soft tissues are unremarkable. Prior bilateral lens replacement. IMPRESSION: No acute process. Electronically signed by: Jaspreet Lucas M.D. 06/12/2020 3:04 PM ECG Additional Comments: EKG performed at 1325 reviewed and demonstrated NSR at 92 / min, downsloping ST depression laterally. Compared to EKG performed 05/31/20, no significant change. Code Status & VTE Plan Code Status Discussed with patient. No living will. Full code.
[2020-06-12] MEDS ORDERED: METOPROLOL TARTRATE 25 MG TAB PO ONE (17:01)
[2020-06-12] MEDS ORDERED: POLYETHYLENE (MIRALAX) 17 GM PACK PO PRN (19:28)
[2020-06-12] MEDS ORDERED: NITROGLYCERIN SL 0.4 MG/TAB TAB SL PRN (19:28)
[2020-06-12] MEDS ORDERED: FUROSEMIDE 40 MG/4 ML VIAL IV ONE (19:42)
[2020-06-12] MEDS ORDERED: HEPARIN 25000 UNIT/500 ML D5W IV ONE (19:48)
[2020-06-12 19:49] LABS: Appearance Urine Clear (Clear); Bacteria Urine Automated Negative (Negative); Bilirubin Urine Negative (Negative); Blood Urine 1+ (Negative); Color Urine Yellow; Glucose Urine UA 3+ (Negative); Ketones Urine Negative (Negative); Leukocyte Esterase Urine Negative (Negative); Nitrite Urine Negative (Negative); Protein Urine 3+ (Negative); RBC Urine Automated 0-4 /hpf (0-4); Specific Gravity Urine 1.029 (1.000-1.030); Urobilinogen Urine Negative (Negative)
--- NOTE | 2020-06-12 20:04 | Pharmacy Report ---
Pharmacy Abx Dose Short Note - Date of Service June 12, 2020 - Assessment & Plan Assessment 64 year old M receiving IV Vancomycin for treatment of empiric antibiotics Day # 1 of antimicrobial therapy. * Pharmacy previously consulted for dosing of Vancomycin last admission <2 weeks ago. At that time, a regimen of Vancomycin 1250mg IV q12 resulted in supratherapeutic trough level. Vancomycin 1000mg q12 produced a trough of 20.5 mcg/mL, therefore will restart this regimen * Renal function appears similar to past admission * Patient received Vancomycin 1750mg (~20 mg/kg) IV x 1 as a loading dose in the ED * H&P is not available for review at this time (still in draft status) * Renal function is challenging to estimate given patient's history of BL amputations. Plan Vancomycin * Initiate Vancomycin 1000mg (~11.5 mg/kg) IV q12 * Will not order trough at this time due to empiric indication of antibiotics. If Vancomycin continued >48 hours, will order trough at that time Pharmacy will continue to follow and will adjust dose/frequency as necessary. Thank you.
[2020-06-12] MEDS ORDERED: HEPARIN IV BOLUS 5,000 UNITS in SYRINGE 0 ML IV ONE (20:15)
[2020-06-12] MEDS: HEPARIN SODIUM/DEXTROSE 25,000 UNITS/500 ML BAG IV SCH (20:17)
[2020-06-12] MEDS: GABAPENTIN 300 MG CAP PO SCH (20:24)
[2020-06-12] MEDS: INSULIN GLARGINE SOLOSTAR 100 UNITS/ML 3 ML PEN SC SCH (20:26)
[2020-06-12] MEDS: INSULIN ASPART 100 UNITS/ML 3 ML PEN SC SCH (20:28)
[2020-06-12 20:54] LABS: Troponin I 2.2 ng/ml (0-0.045)
[2020-06-13 02:53] LABS: Basophils # (auto) 0.04 K/uL (0-0.2); Basophils % (auto) 0.2 %; Eosinophils % (auto) 0.6 %; Hematocrit (blood only) 31.8 % (42-52); Hemoglobin 10.6 g/dL (14.0-18.0); Immature Granulocytes # (auto) 0.08 K/uL (0.00-0.02); Immature Granulocytes % (auto) 0.5 %; Lymphocytes # (auto) 2.45 K/uL (1.2-3.4); Lymphocytes % (auto) 14.2 %; Mean Corpuscular Hemoglobin 31.9 pg (25-34); Mean Corpuscular Hgb Conc 33.3 g/dL (32-36); Mean Corpuscular Volume 95.8 fL (80-100); Mean Platelet Volume 9.8 fL (7.4-10.4); Monocytes # (auto) 0.98 K/uL (0.11-0.59); Monocytes % (auto) 5.7 %; Neutrophils # (auto) 13.66 K/uL (1.4-6.5); Neutrophils % (auto) 78.8 %; Platelet Count 428 K/uL (130-400); RDW Coefficient of Variation 14.9 % (11.5-14.5); RDW Standard Deviation 51.6 fL (36.4-46.3); Red Blood Count 3.32 M/uL (4.7-6.1); White Blood Count 17.31 K/uL (4.8-10.8)
[2020-06-13 03:11] LABS: Creatinine Clr Calc Pharmacy 57.6 ml/min; Est GFR (African American) 89.4; Est GFR (Non-African American) 77.1
[2020-06-13 03:14] LABS: Partial Thromboplastin Ratio 1.8
[2020-06-13 03:17] LABS: Partial Thromboplastin Time 50.4 Seconds (21.0-31.0)
[2020-06-13 03:22] LABS: BUN Creatinine Ratio 22.2 (10-20); Creatinine Clr Calc Pharmacy 53.9 ml/min; Est GFR (African American) 82.5; Est GFR (Non-African American) 71.1; Potassium 3.7 mmol/L (3.5-5.1); Troponin I 2.02 ng/ml (0-0.045)
[2020-06-13] MEDS: VANCOMYCIN HCL 1,000 MG in SODIUM CHLORIDE 0.9% 250 ML IV SCH ×2 (05:57→17:33)
[2020-06-13] MEDS ORDERED: VANCOMYCIN HCL 1,250 MG in SODIUM CHLORIDE 0.9% 250 ML IV SCH (06:00)
[2020-06-13] MEDS: INSULIN ASPART 100 UNITS/ML 3 ML PEN SC SCH ×4 (07:38→20:25)
[2020-06-13] MEDS: CLOTRIMAZOLE 10 MG TROCHE BUCCAL SCH ×5 (07:38→23:54)
[2020-06-13] MEDS: CLOPIDOGREL BISULFATE 75 MG TAB PO SCH (07:39)
[2020-06-13] MEDS: GABAPENTIN 300 MG CAP PO SCH ×3 (07:39→20:24)
[2020-06-13] MEDS: ATORVASTATIN 40 MG TAB PO SCH (07:39)
[2020-06-13] MEDS: METOPROLOL SUCC 25MG EXT REL TAB PO SCH ×2 (07:39→20:26)
[2020-06-13] MEDS: ASPIRIN 81 MG ECTAB PO SCH (07:39)
--- NOTE | 2020-06-13 09:18 | Cardiology Consultation ---
Date of Consultation June 13, 2020 Assessment & Plan (1) Non-ST elevation (NSTEMI) myocardial infarction: (2) Acute on chronic heart failure with reduced ejection fraction and diastolic dysfunction: (3) Status post above-knee amputation of right lower extremity: (4) PAD (peripheral artery disease): Unfortunately, treatment options are limited from a cardiac perspective. Results of recent cardiac catheterization reviewed. Due to severe calcified left main disease, patient is a poor candidate for intervention. He was evaluated by CT surgery at [facility] who also declined further invasive management. There is a 80% mid RCA lesion noted, however, this is a nondominant vessel and treatment would not alter outcomes. Recommend continue intravenous heparin for 48 hours. Optimize antianginal medications. Metoprolol titrated to 25 mg twice daily. Consider titration to 75 mg daily during hospitalization. Consider addition of long-acting nitrates pending blood pressure response to titration of beta- adriane therapy. Add lisinopril 2.5mg daily and Lasix 20 mg daily. Repeat basic metabolic panel in a.m. History of Present Illness Reason for Consultation: Elevated troponin, CHF, PVD Requesting Physician: Dr. Gerardo Attending Physician: Aleksander Gerardo MD History of Present Illness 64-year-old patient admitted from home due to change in mental status and hyperglycemia. Elevated troponin noted on admission. Patient without chest pain or unusual shortness of breath. X-ray demonstrating mild pulmonary vascular congestion. Treated with IV Lasix in ED 06/12/2020. Patient recently hospitalized due to right stump osteomyelitis. He was transferred to [facility] due to NSTEMI where cardiac catheterization performed 06/02/20. Cardiac catheterization demonstrating severe 90% left main stenosis extending into the LAD, ramus, and dominant left circumflex. There is a 80% mid nondominant RCA stenosis noted as well. Patient was evaluated by CT surgery, however, due to a poor targets and lack of conduits (bilateral amputations) medical management recommended. Right-sided [id number] amputation performed 06/03/2020. Closure of the wound performed 06/06/2020. Patient seen exam at the bedside. Awake and alert however somewhat confused. Denies chest pain or shortness of breath. No orthopnea, or PND. Reports discomfort related to his right AKA surgical site. Denies erythema or drainage. Telemetry demonstrates sinus rhythm. No sustained dysrhythmias. Allergies Allergy/AdvReac Type Severity Reaction Status Date / Time No Known Allergies Allergy Verified 06/12/20 14:57 Home Medications Medication Instructions Recorded Confirmed Type aspirin 81 mg tablet,delayed 81 mg PO QAM 04/30/20 06/12/20 History release clopidogrel 75 mg tablet 75 mg PO QAM 04/30/20 06/12/20 History gabapentin 300 mg capsule 300 mg PO TID 04/30/20 06/12/20 History insulin aspart U-100 100 unit/mL 1 sliding scale dose SUBCUT 04/30/20 06/12/20 History subcutaneous solution USEASDIRECTD insulin glargine 100 unit/mL 10 unit SUBCUT QPM ml 04/30/20 06/12/20 History subcutaneous solution polyethylene glycol 3350 [Miralax] 17 g PO DAILY PRN 05/28/20 06/12/20 History atorvastatin 80 mg PO DAILY 06/12/20 06/12/20 History metoprolol succinate 25 mg PO DAILY 06/12/20 06/12/20 History oxycodone 10 mg PO Q4H PRN 06/12/20 06/12/20 History Patient History Medical History CAD in [place] artery Carotid artery disease S/P right CEA by Dr. Sheppard on 09/14/17. L Occluded carotid artery Cerebrovascular disease CHF (congestive heart failure) Echo 05/30/20 LVEF 35%. 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 Cath C 06/02/20- severe diffuse multi-vessel disease. Medical management recommended Diabetes mellitus type 2 with complications Diabetic neuropathy Diabetic peripheral angiopathy Dyslipidemia Emphysema of lung GERD (gastroesophageal reflux disease) History of CVA (cerebrovascular accident) H/O right basal ganglia stroke in 2011. PAD (peripheral artery disease) Peripheral vascular disease Right BKA infection Tobacco dependence Surgical History History of angioplasty of peripheral vessel L LEG left popliteal artery angioplasty and stent as left AT/peroneal/TP trunk angioplasty on 05/10/[address] Sheppard left AKA on 12/19/17 09/27/17 for angioplasty/stent of the left SFA, but noted to have a BK- popliteal occlusion (would need a left fem=>AT bypass). left common femoral endarterectomy with vein patch angioplasty and common femoral artery => anterior tibial artery bypass using non-reversed left great saphenous vein 10/20/2017. R LEG RSFA stent and, angioplasty of PT/peroneal artery 06/06/[address] Mosqueda S/P right TOMMIE/TP-trunk/peroneral/PT angioplasty by Dr. Mosqueda on 10/25/18. 02/2019 again prompted additional intervention He underwent bilateral common & external iliac artery stents (one 7 x 80 mm Everflex stent on each side) and right SFA/pop/TP-trunk angioplasty by Dr. Sheppard 04/03/19. 05/09/20 He underwent balloon angioplasty of right SFA/popliteal/TP-trunk/peroneral ar teries and open amputation of the R 5th toe by Dr. Sheppard on 08/10/19. History of femoropopliteal bypass History of right below knee amputation 11/15/[address] Sheppard History of spinal fusion "05/[address] Reeder" Hx of AKA (above knee amputation) L 12/2018 Status post above-knee amputation of right lower extremity [facility] 06/03/20 Status post cardiac catheterization [facility] 06/02/20- severe diffuse multi-vessel disease; medical management recommended Family History Other Family history non-contributory Social History Smoking Status: Current every day smoker Tobacco Type: Cigarettes packs per day: 1; Years Smoked: 50; Cigarettes Per Day: 20; Second Hand Exposure: No; Do You Dip or Chew Tobacco: No; Tobacco Cessation Education Requested by Patient: No Hx Alcohol Use: Yes Alcohol type: beer Alcohol Intake Frequency: 2-4 x/Month Hx Substance Use: No Preferred Language: Luxembourger Communication Ability: Effective [place] Leadperson Required: No Beliefs That Will Affect Care: None marital status: Current Living Situation: Significant Other Current Living Situation Comment: [facility] WITH PT current occupational status: retired How many Children do You have: 1 How many Children do You have Comment: LOCAL SON THAT IS ABLE TO HELP. ALSO HAS SISTER WHO IS ABLE TO HELP NEEDED. Other Information That Helps Us Care for You: No Feels Safe at Home: Yes Safety Concerns: Feels Safe At This Time during the past year weight has: increased > 10 lbs Assistive Devices: Glasses and Oxygen - Continuous Review of Systems Review of Systems: All systems reviewed & are unremarkable except as noted in HPI & below Physical Exam Constitutional: well developed, well nourished and + ill appearing Respiratory: normal respiratory effort; no respiratory distress and no labored breathing Auscultation: lungs clear to auscultation bilaterally; no crackles, no rales, no rhonchi and no wheezes Cardiovascular: Rate/Rhythm: regular rate and regular rhythm Heart Sounds: normal S1 and normal S2; no murmur Vessels: no JVD and no carotid bruit Extremities: no edema Right AKA surgical site clean, dry, intact. Gastrointestinal (Abdomen): Inspection/Auscultation: abdomen normal to inspection and normal bowel sounds; abdomen not distended Percussion/Palpation: abdomen nontender, no guarding and abdomen not rigid Skin: no rashes, warm and dry Neurologic: moves all extremities Motor/Sensory: no tremor Psychiatric: Orientation: alert Affect: + flat affect Results & Data ([facility]) Vital Signs (Past 12 Hours) Vital Signs Temp Pulse Resp BP Pulse Ox 06/13/20 04:08 37.3 C 88 22 136/76 94 06/13/20 00:00 86 06/12/20 22:47 37.5 C 85 24 123/75 97
[2020-06-13] MEDS: oxyCODONE HCL IR 5 MG TAB (IMMEDIATE RELEASE) PO PRN ×2 (10:43→17:33)
[2020-06-13] MEDS: FUROSEMIDE 20 MG TAB PO SCH (11:55)
--- NOTE | 2020-06-13 12:05 | Hospitalist Progress Note ---
Date of Service June 13, 2020 Assessment & Plan (1) Elevated troponin: Troponin in ED 1.93>2.2>2.02 Known severe multi-vessel coronary artery disease with non-STEMI about 2 weeks ago.-Medical management is contemplated No chest pain, but experiencing dyspnea over past 1-2 days. EKG shows NSR with lateral ST depression, similar to previous tracings. Possible recurrent non-STEMI or demand ischemia. Continue antiplatelet therapy with aspirin and clopidogrel. Anticoagulate with IV heparin. Appreciate cardiology input and recommendation Beta-adrinae doses have been adjusted Remains free of any cardiac pain (2) Coronary artery disease: As discussed above. Inoperable CAD as per cardiac cath during recent admission (3) CHF (congestive heart failure): History of ischemic cardiomyopathy with LVEF 35% per most recent echo. Exam reveals few bibasilar rales and slight JVD; no gallop appreciated. Chest x-ray shows cardiomegaly and pulmonary vascular congestion. Check [id number] at 12,243 Furosemide 40 mg IV today x 1, then re-evaluate. Continue metoprolol succinate. Added a small dose of lisinopril and furosemide will be continued (4) Leukocytosis: WBC 13,000. Afebrile. Lactate 2.2 --> 1.8.Procalcitonin < 0.05. Hemodynamically stable. Recent wound infection + osteomyelitis RLE (most recent wound culture grew Pseudomonas aeruginosa, Klebsiella oxytoca, and Group C beta strep; previous wound culture grew MRSA). Subsequent right AKA.Wound does not appear to be infected but remains very tender to palpate with swelling and increasing local temperature Possible sepsis (HR > 90, leukocytosis, elevated lactate). No cough; no infiltrates on chest x-ray. Urine does not appear to be infected. No diarrhea. Blood cultures obtained in ED and patient received IV vancomycin and ceftriaxone. DC antibiotics if no evidence of infection at 48 hours. (5) Altered mental status: Confused at home. Blood sugar at the time was > 400. CT head did not show any acute findings. Possible sepsis as discussed above. Probable toxic / metabolic encephalopathy secondary to hypoglycemia. Remains weak and lethargic Confusion has been clearing up (6) History of CVA (cerebrovascular accident): No acute findings on CT head. Continue antiplatelet therapy with aspirin and clopidogrel. Continue high-intensity statin. (7) Diabetes mellitus type 2 with complications: DM type 2 complicated by coronary artery disease and peripheral artery disease. Blood sugar in 400's at home. Lantus dose decreased during recent hospitalization at [facility]. Hgb A1c 9.6 on 05/30/20. Lantus / NovoLog per protocol. Will need ongoing diabetes education and support after discharge. (8) Dyslipidemia: LDL-c 82 on 05/31/20. Continue high-intensity statin therapy with atorvastatin. (9) Status post above-knee amputation of right lower extremity: S/P right AKA 06/03/20 at [facility]. Wound does not appear to be infected. Follow-up with [facility] as scheduled. (10) COVID-19 ruled out: SARS-CoV-2 antigen screen negative (no COVID-19 symptoms; screening performed per protocol for admission). (11) DVT prophylaxis: Initially receiving IV heparin for possible acute coronary syndrome. Pain will be continued for 48 hours (12) Discharge planning issues: Discharge disposition to be determined; probable DC to home with services. Family Medicine follow-up with Dr. Moses. Follow-up with [facility]. Admission and Anticipated Discharge Date Admission Date: June 12, 2020 Subjective 06/13/2020 The patient was seen and examined in ICU He complains to have right above-knee stump pain but denies any chest pain, palpitation or shortness of breath Denies any fever and/or chills Remains very weak and lethargic Review of Systems Review of Systems: All systems reviewed and are unremarkable except as noted below Constitutional: + fatigue and + weakness Musculoskeletal: + joint pain (Pain and swelling of the above-named amputation stump on the right side) Physical Exam Physical Exam: Lying in bed without any acute distress Constitutional: well developed, well nourished, + acute distress (Right thigh pain), + ill appearing and + obese Eyes: PERRL, conjunctivae normal, anicteric sclerae ENMT: external ear and nose normal, oropharynx normal Neck: trachea midline, no thyromegaly Respiratory: no respiratory distress Auscultation: + diminished lung sounds and + crackles (Minimal crackles at the bases) Cardiovascular: Heart Sounds: no murmur Gastrointestinal (Abdomen): Inspection/Auscultation: normal bowel sounds; abdomen not distended Percussion/Palpation: abdomen soft; abdomen nontender Musculoskeletal: Bilateral above-knee amputation. Skin: Increasing warmth , swelling and tenderness over right above-knee amputation stump Neurologic: Alert, awake and oriented x3 Psychiatric: A+Ox3, euthymic affect Results & Data Results & Data ([facility]) Vital Signs (Past 12 Hours) Vital Signs Temp Pulse Resp BP Pulse Ox 06/13/20 10:47 37 C 06/13/20 09:00 84 26 H 97 06/13/20 08:32 87 28 H 111/55 L 89 L 06/13/20 04:08 37.3 C 88 22 136/76 94 06/13/20 00:00 86 Laboratory Results Short CBC 06/12/20 06/13/20 Range/Units 14:11 02:38 WBC 13.89 H 17.31 H (4.8-10.8) K/uL Hgb 10.7 L 10.6 L (14.0-18.0) g/dL Hct 32.8 L 31.8 L (42-52) % Plt Count 474 H 428 H (130-400) K/uL BMP 06/12/20 06/13/20 06/13/20 14:11 02:38 02:38 Sodium 134 L 134 L Potassium 4.4 3.7 D Chloride 103 102 Carbon Dioxide 26 28 BUN 26 H 24 H Creatinine 1.13 1.01 1.08 Glucose 232 H 236 H Calcium 9.4 9.0 Cardiac Enzymes 06/12/20 06/12/20 06/13/20 Range/Units 14:11 20:12 02:38 Troponin I 1.930 H* 2.200 H* 2.020 H* (0-0.045) ng/ml Liver Function 06/12/20 Range/Units 14:11 Total Bilirubin 0.3 (0.2-1) mg/dl AST 28 (15-37) U/L ALT 23 (12-78) U/L Alkaline Phosphatase 105 (45-117) U/L Albumin 2.4 L (3.4-5.0) gm/dl Urine 06/12/20 Range/Units Unknown Urine Color Yellow Urine Appearance Clear (Clear) Urine pH 5.0 (4.5-7.5) Ur Specific [place] 1.029 (1.000-1.030) Urine Protein 3+ H (Negative) Urine Glucose (UA) 3+ H (Negative) Medications Administered Current Inpatient Medications Acetaminophen (Acetaminophen 325 Mg Tab) 650 mg PO Q4H PRN PRN Reason: Pain or Fever Stop: 07/12/20 19:27 Aspirin (Aspirin 81 Mg Ectab) 81 mg PO QAM [facility] Stop: 07/13/20 08:59 Last Admin: 06/13/20 07:39 Dose: 81 mg Documented by: Atorvastatin Calcium (Atorvastatin 40 Mg Tab) 80 mg PO DAILY [facility] Stop: 07/13/20 08:59 Last Admin: 06/13/20 07:39 Dose: 80 mg Documented by: Clopidogrel Bisulfate (Clopidogrel Bisulfate 75 Mg Tab) 75 mg PO QAM [facility] Stop: 07/13/20 08:59 Last Admin: 06/13/20 07:39 Dose: 75 mg Documented by: Clotrimazole (Clotrimazole 10 Mg Ivana) 10 mg BUCCAL [id number] [facility] Stop: 06/23/20 06:59 Last Admin: 06/13/20 10:40 Dose: Not Given Documented by: Furosemide (Furosemide 20 Mg Tab) 20 mg PO QAM [facility] Stop: 07/13/20 10:59 Last Admin: 06/13/20 11:55 Dose: 20 mg Documented by: Gabapentin (Gabapentin 300 Mg Cap) 300 mg PO TID [facility] Stop: 07/12/20 20:59 Last Admin: 06/13/20 07:39 Dose: 300 mg Documented by: Heparin Sodium/Dextrose (Heparin Sodium/Dextrose) 25,000 units in 500 mls @ 23 mls/hr IV .[id number] [facility]; Protocol Stop: 07/12/20 20:14 Last Titration: 06/13/20 07:00 Dose: 1,150 units/hr, 23 mls/hr Documented by: Vancomycin HCl 1,000 mg/ (Sodium Chloride) 270 mls @ 200 mls/hr IV Q12H [facility] Stop: 06/15/20 05:59 Last Infusion: 06/13/20 07:30 Dose: Infused Documented by: Ceftriaxone Sodium 2,000 mg/ (Dextrose) 70 mls @ 100 mls/hr IV DAILY [facility]; Protocol Stop: 06/16/20 16:59 Insulin Aspart (Insulin Aspart 100 Units/Ml 3 Ml Pen) 0 units SC ACHS [facility] Stop: 07/12/20 20:59 Last Admin: 06/13/20 07:38 Dose: 6 units Documented by: Insulin Glargine (Insulin Glargine Solostar 100 Units/Ml 3 Ml Pen) 0 units SC HS [facility]; Protocol Stop: 07/12/20 20:59 Last Admin: 06/12/20 20:26 Dose: 20 units Documented by: Lisinopril (Lisinopril 2.5 Mg Tab) 2.5 mg PO QAM [facility] Stop: 07/14/20 08:59 Metoprolol Succinate (Metoprolol Succ 25mg Ext Rel Tab) 25 mg PO BID [facility] Stop: 07/13/20 08:59 Last Admin: 06/13/20 07:39 Dose: 25 mg Documented by: Miscellaneous Information (Vancomycin Consult Active) 1 ea N/A UD PRN PRN Reason: Consult Stop: 07/12/20 16:09 Nitroglycerin (Nitroglycerin Sl 0.4 Mg/Tab Tab) 0.4 mg SL UD PRN PRN Reason: Chest Pain Stop: 07/12/20 19:27 Oxycodone HCl (Oxycodone Hcl Ir 5 Mg Tab (Immediate Release)) 10 mg PO Q4H PRN PRN Reason: Pain Stop: 06/26/20 19:27 Last Admin: 06/13/20 10:43 Dose: 10 mg Documented by: Polyethylene Glycol (Polyethylene (Miralax) 17 Gm Pack) 17 gm PO DAILY PRN PRN Reason: Constipation Stop: 07/12/20 19:27
[2020-06-13] MEDS ORDERED: FUROSEMIDE 40 MG in SYRINGE 0 ML IV ONE (15:30)
[2020-06-13] MEDS: HEPARIN SODIUM/DEXTROSE 25,000 UNITS/500 ML BAG IV SCH (15:48)
[2020-06-13] MEDS: ACETAMINOPHEN 325 MG TAB PO PRN ×2 (20:16→23:54)
[2020-06-13] MEDS: INSULIN GLARGINE SOLOSTAR 100 UNITS/ML 3 ML PEN SC SCH (20:24)
--- NOTE | 2020-06-13 22:21 | Electrocardiogram Report ---
Test Reason : Blood Pressure : / mmHG Vent. Rate : 092 BPM Atrial Rate : 092 BPM P-R Int : 174 ms QRS Dur : 104 ms QT Int : 342 ms P-R-T Axes : 046 074 182 degrees QTc Int : 422 ms Normal sinus rhythm Abnormal ECG When compared with ECG of 31-MAY-2020 08:11, No significant change was found Confirmed by León Villarreal ([id number]) on 06/13/2020 10:21:12 PM Referred By: REFERRED SELF Confirmed By:León Villarreal
[2020-06-14] MEDS: oxyCODONE HCL IR 5 MG TAB (IMMEDIATE RELEASE) PO PRN ×3 (04:52→23:59)
[2020-06-14] MEDS: CLOTRIMAZOLE 10 MG TROCHE BUCCAL SCH ×5 (05:13→22:10)
[2020-06-14] MEDS: VANCOMYCIN HCL 1,000 MG in SODIUM CHLORIDE 0.9% 250 ML IV SCH ×2 (05:13→18:01)
[2020-06-14] MEDS: INSULIN ASPART 100 UNITS/ML 3 ML PEN SC SCH ×4 (07:56→20:37)
[2020-06-14] MEDS: ASPIRIN 81 MG ECTAB PO SCH (07:58)
[2020-06-14] MEDS: ATORVASTATIN 40 MG TAB PO SCH (07:59)
[2020-06-14] MEDS: FUROSEMIDE 20 MG TAB PO SCH (07:59)
[2020-06-14] MEDS: CLOPIDOGREL BISULFATE 75 MG TAB PO SCH (08:00)
[2020-06-14] MEDS: GABAPENTIN 300 MG CAP PO SCH ×3 (08:00→20:46)
[2020-06-14] MEDS: METOPROLOL SUCC 25MG EXT REL TAB PO SCH ×2 (08:01→20:38)
[2020-06-14] MEDS: lisinopril 2.5 MG TAB PO SCH (08:01)
[2020-06-14 08:50] LABS: Basophils # (auto) 0.05 K/uL (0-0.2); Basophils % (auto) 0.3 %; Eosinophils # (auto) 0.14 K/uL (0-0.5); Eosinophils % (auto) 0.7 %; Hematocrit (blood only) 29.7 % (42-52); Hemoglobin 9.8 g/dL (14.0-18.0); Immature Granulocytes # (auto) 0.06 K/uL (0.00-0.02); Immature Granulocytes % (auto) 0.3 %; Lymphocytes % (auto) 13.1 %; Mean Corpuscular Hemoglobin 32.2 pg (25-34); Mean Corpuscular Volume 97.7 fL (80-100); Mean Platelet Volume 10.2 fL (7.4-10.4); Monocytes # (auto) 1.61 K/uL (0.11-0.59); Monocytes % (auto) 8.4 %; Neutrophils # (auto) 14.71 K/uL (1.4-6.5); Neutrophils % (auto) 77.2 %; Platelet Count 356 K/uL (130-400); RDW Coefficient of Variation 15.3 % (11.5-14.5); RDW Standard Deviation 53.6 fL (36.4-46.3); Red Blood Count 3.04 M/uL (4.7-6.1); White Blood Count 19.07 K/uL (4.8-10.8)
[2020-06-14 09:13] LABS: Albumin Level 2.2 gm/dl (3.4-5.0); BUN Creatinine Ratio 21.2 (10-20); Calcium 8.8 mg/dl (8.5-10.1); Creatinine Clr Calc Pharmacy 49.6 ml/min; Est GFR (African American) 76.4; Est GFR (Non-African American) 65.9; Magnesium 1.9 mg/dl (1.8-2.4); Partial Thromboplastin Ratio 1.7; Potassium 3.8 mmol/L (3.5-5.1)
[2020-06-14 09:16] LABS: Albumin Globulin Ratio 0.5 (0.9-2); Bilirubin,Total 0.8 mg/dl (0.2-1); Globulin 4.9 gm/dl (2.5-4.0); Phosphorus 3.5 mg/dl (2.5-4.9); Total Protein 7.1 gm/dl (6.4-8.2)
[2020-06-14 09:28] LABS: Partial Thromboplastin Time 47.2 Seconds (21.0-31.0)
--- NOTE | 2020-06-14 09:53 | Electrocardiogram Report ---
Test Reason : Blood Pressure : / mmHG Vent. Rate : 082 BPM Atrial Rate : 082 BPM P-R Int : 162 ms QRS Dur : 106 ms QT Int : 388 ms P-R-T Axes : 031 069 143 degrees QTc Int : 453 ms Normal sinus rhythm ST depression in Anterolateral leads , consider ischemia Nonspecific ST and T wave abnormality Inferior leads Abnormal ECG When compared with ECG of 12-JUN-2020 13:25, ST less depressed in anterolateral leads Confirmed by Bjorn Ocampo ([id number]) on 06/14/2020 9:52:46 AM Referred By: REFERRED SELF Confirmed By:Bjorn Ocampo
--- NOTE | 2020-06-14 11:54 | XRay Report ---
XR chest 1V portable HISTORY: 64 years-old Male chf acute shortness of breath with congestive heart failure COMPARISON: Chest radiograph 06/12/2020 TECHNIQUE: Portable AP view of the chest FINDINGS: Cardiac silhouette is enlarged. Pulmonary vascular congestion with unchanged interstitial coarsening. No pneumothorax. Trace pleural effusions. No lobar airspace consolidation. Degenerative changes of t he shoulders and spine. IMPRESSION: 1. Cardiomegaly with unchanged pulmonary edema. 2. Trace pleural effusions. ACT 112: Negative or not required by law. The above report was generated using voice recognition software. It may contain grammatical, syntax o r spelling errors. Electronically signed by: Jaspreet Lucas M.D. 06/14/2020 11:52 AM
[2020-06-14] MEDS ORDERED: PIPERACILL/TAZOBAC CONSULT ACTIVE PRN (12:15)
[2020-06-14] MEDS ORDERED: PIPERACILLIN/TAZOBACTAM 4.5 GM in DEXTROSE 5% 100 ML IV ONE (12:30)
[2020-06-14] MEDS ORDERED: FUROSEMIDE 40 MG in SYRINGE 0 ML IV ONE (13:00)
[2020-06-14] MEDS: HEPARIN SODIUM/DEXTROSE 25,000 UNITS/500 ML BAG IV SCH (14:32)
--- NOTE | 2020-06-14 15:10 | Cardiology Progress Note ---
Date of Service June 14, 2020 Assessment & Plan (1) Non-ST elevation (NSTEMI) myocardial infarction: Patient currently without symptoms. Tolerating medication adjustments as ordered Patient anticoagulated with IV heparin with planned continuation for additional 24 hours then transition to dual antiplatelet therapy As previously noted patient underwent recent diagnostic cardiac catheterization with critical coronary disease define with high-grade calcified left main stenosis not amenable to coronary intervention and poor surgical targets as a nonsurgical option. Left anatomy is dominant essentially all coronary perfusion through critical left main stenosis. Would continue current medications as ordered. Continue to treat underlying medical issues, possible infection. Will follow volume status close on IV antibiotics Extremely high risk for further cardiac ischemia and deterioration (2) Acute on chronic heart failure with reduced ejection fraction and diastolic dysfunction: (3) Status post above-knee amputation of right lower extremity: (4) PAD (peripheral artery disease): Admission and Anticipated Discharge Date Admission Date: June 12, 2020 Subjective Patient seen and examined, chart, medications, telemetry reviewed. Patient voices no cardiac complaints. No chest pain or shortness of breath. Physical Exam Constitutional: + ill appearing Eyes: PERRL, conjunctivae normal, anicteric sclerae ENMT: external ear and nose normal, oropharynx normal Neck: trachea midline, no thyromegaly Respiratory: Auscultation: + diminished lung sounds; no rales Cardiovascular: RRR, no murmur, no edema Musculoskeletal: Bilateral AKA Neurologic: Flat affect Results & Data ([facility]) Vital Signs (Past 12 Hours) Vital Signs Temp Pulse Pulse Resp BP Pulse Ox 06/14/20 11:00 37.2 C 86 18 97/59 L 98 06/14/20 07:57 36.8 C 81 20 106/69 96 06/14/20 07:26 90 06/14/20 04:00 37.3 C 85 18 97/56 L 99 Laboratory Results Laboratory Results - last 24 hr 06/13/20 06/13/20 06/14/20 16:27 20:23 07:47 WBC RBC Hgb Hct MCV MCH MCHC RDW Std Deviation RDW Coeff of Martin Plt Count MPV Immature Gran % (Auto) Neut % (Auto) Lymph % (Auto) [place] % (Auto) Eos % (Auto) Baso % (Auto) Neut # (Auto) Lymph # (Auto) [place] # (Auto) Eos # (Auto) Baso # (Auto) Immature Gran # (Auto) APTT PTT Ratio Sodium Potassium Chloride Carbon Dioxide Anion Gap BUN Creatinine Est Cr Clr Drug Dosing Est GFR ( Amer) Est GFR (Non-Af Amer) BUN/Creatinine Ratio Glucose POC Glucose 225 H 218 H 196 H Calcium Phosphorus Magnesium Total Bilirubin AST ALT Alkaline Phosphatase Total Protein Albumin Globulin Albumin/Globulin Ratio 06/14/20 06/14/20 06/14/20 08:26 08:26 08:26 WBC 19.07 H RBC 3.04 L Hgb 9.8 L Hct 29.7 L MCV 97.7 MCH 32.2 MCHC 33.0 RDW Std Deviation 53.6 H RDW Coeff of Martin 15.3 H Plt Count 356 MPV 10.2 Immature Gran % (Auto) 0.3 Neut % (Auto) 77.2 Lymph % (Auto) 13.1 [place] % (Auto) 8.4 Eos % (Auto) 0.7 Baso % (Auto) 0.3 Neut # (Auto) 14.71 H Lymph # (Auto) 2.50 [place] # (Auto) 1.61 H Eos # (Auto) 0.14 Baso # (Auto) 0.05 Immature Gran # (Auto) 0.06 H APTT 47.2 H* PTT Ratio 1.7 Sodium 134 L Potassium 3.8 Chloride 100 Carbon Dioxide 27 Anion Gap 7.0 BUN 24 H Creatinine 1.15 Est Cr Clr Drug Dosing 49.6 Est GFR ( Amer) 76.4 Est GFR (Non-Af Amer) 65.9 BUN/Creatinine Ratio 21.2 H Glucose 181 H POC Glucose Calcium 8.8 Phosphorus 3.5 Magnesium 1.9 Total Bilirubin 0.8 D AST 18 ALT 16 Alkaline Phosphatase 93 Total Protein 7.1 Albumin 2.2 L Globulin 4.9 H Albumin/Globulin Ratio 0.5 L 06/14/20 11:40 WBC RBC Hgb Hct MCV MCH MCHC RDW Std Deviation RDW Coeff of Martin Plt Count MPV Immature Gran % (Auto) Neut % (Auto) Lymph % (Auto) [place] % (Auto) Eos % (Auto) Baso % (Auto) Neut # (Auto) Lymph # (Auto) [place] # (Auto) Eos # (Auto) Baso # (Auto) Immature Gran # (Auto) APTT PTT Ratio Sodium Potassium Chloride Carbon Dioxide Anion Gap BUN Creatinine Est Cr Clr Drug Dosing Est GFR ( Amer) Est GFR (Non-Af Amer) BUN/Creatinine Ratio Glucose POC Glucose 207 H Calcium Phosphorus Magnesium Total Bilirubin AST ALT Alkaline Phosphatase Total Protein Albumin Globulin Albumin/Globulin Ratio
[2020-06-14] MEDS: ACETAMINOPHEN 325 MG TAB PO PRN (15:40)
[2020-06-14] MEDS ORDERED: SODIUM CHLORIDE 0.9% 1000ML 500 ML IV ONE (16:16)
[2020-06-14] MEDS ORDERED: cefTRIAXone SODIUM 2,000 MG in DEXTROSE 5% 50 ML IV SCH (17:00)
--- NOTE | 2020-06-14 17:29 | Hospitalist Progress Note ---
Date of Service June 14, 2020 Assessment & Plan (1) Elevated troponin: Troponin in ED 1.93>2.2>2.02 Known severe multi-vessel coronary artery disease with non-STEMI about 2 weeks ago.-Medical management is contemplated No chest pain, but experiencing dyspnea over past 1-2 days. EKG shows NSR with lateral ST depression, similar to previous tracings. Possible recurrent non-STEMI or demand ischemia. Continue antiplatelet therapy with aspirin and clopidogrel. Anticoagulate with IV heparin. Appreciate cardiology input and recommendation Beta-adriane doses have been adjusted Remains free of any cardiac pain (2) Coronary artery disease: As discussed above. Inoperable CAD as per cardiac cath during recent admission (3) CHF (congestive heart failure): History of ischemic cardiomyopathy with LVEF 35% per most recent echo. Exam reveals few bibasilar rales and slight JVD; no gallop appreciated. Chest x-ray shows cardiomegaly and pulmonary vascular congestion. Check [id number] at 12,243 Furosemide 40 mg IV today x 1, then re-evaluate. Continue metoprolol succinate. Added a small dose of lisinopril and furosemide will be continued Remains some shortness of breath in the chest which did show CHF (4) Leukocytosis: WBC 13,000. Afebrile. Lactate 2.2 --> 1.8.Procalcitonin < 0.05. Hemodynamically stable. Recent wound infection + osteomyelitis RLE (most recent wound culture grew Pseudomonas aeruginosa, Klebsiella oxytoca, and Group C beta strep; previous wound culture grew MRSA). Subsequent right AKA.Wound does not appear to be infected but remains very tender to palpate with swelling and increasing local temperature Possible sepsis (HR > 90, leukocytosis, elevated lactate). No cough; no infiltrates on chest x-ray. Urine does not appear to be infected. No diarrhea. Blood cultures obtained in ED and patient received IV vancomycin and ceftriaxone. White blood cell count has increased-antibiotics have upgraded to intravenous vancomycin and Zosyn Possible stump infection/cellulitis We will get MRI of the right lower leg (5) Altered mental status: Confused at home. Blood sugar at the time was > 400. CT head did not show any acute findings. Possible sepsis as discussed above. Probable toxic / metabolic encephalopathy secondary to hypoglycemia. Remains weak and lethargic Confusion has been clearing up (6) History of CVA (cerebrovascular accident): No acute findings on CT head. Continue antiplatelet therapy with aspirin and clopidogrel. Continue high-intensity statin. (7) Diabetes mellitus type 2 with complications: DM type 2 complicated by coronary artery disease and peripheral artery disease. Blood sugar in 400's at home. L[place]us dose [place] [facility] [place] Hgb A1c 9.6 on 05/30/20. Lantus / NovoLog per protocol. Will need ongoing diabetes education and support after discharge. (8) Dyslipidemia: LDL-c 82 on 05/31/20. Continue high-intensity statin therapy with atorvastatin. (9) Status post above-knee amputation of right lower extremity: S/[place] [facility] [place] Wound does not appear to be infected. Follow-up with [facility] as scheduled. We will get MRI of the right lower leg to rule out any abscess and/or fluid collection (10) COVID-19 ruled out: SARS-CoV-2 antigen screen negative (no COVID-19 symptoms; screening performed per protocol for admission). (11) DVT prophylaxis: Initially receiving IV heparin for possible acute coronary syndrome. Pain will be continued for 48 hours (12) Discharge planning issues: Discharge disposition to be determined; probable DC to home with services. Family Medicine follow-up with Dr. Moses. Follow-up with [facility]. Admission and Anticipated Discharge Date Admission Date: June 12, 2020 Subjective 06/13/2020 The patient was seen and examined in ICU He complains to have right above-knee stump pain but denies any chest pain, palpitation or shortness of breath Denies any fever and/or chills Remains very weak and lethargic 06/14/2020 The patient was seen and examined in medical telemetry unit He has been complaining of shortness of breath since this morning Denies any chest pain or palpitation His blood pressure has been running on the lower side Review of Systems Review of Systems: All systems reviewed and are unremarkable except as noted below Constitutional: + fatigue and + weakness Respiratory: as per Subjective / HPI Cardiovascular: as per Subjective / HPI Musculoskeletal: + joint pain (Pain and swelling of the above-named amputation stump on the right side) Endocrine: as per Subjective / HPI Hematologic / Lymphatic: + easy bruising; no easy bleeding and no lymphadenopathy Physical Exam Physical Exam: Lying in bed without any acute distress Constitutional: well developed, well nourished, + acute distress (Right thigh pain), + ill appearing and + obese Eyes: PERRL, conjunctivae normal, anicteric sclerae ENMT: external ear and nose normal, oropharynx normal Neck: trachea midline, no thyromegaly Respiratory: no respiratory distress Auscultation: + diminished lung sounds and + crackles (Minimal crackles at the bases) Cardiovascular: Heart Sounds: no murmur Gastrointestinal (Abdomen): Inspection/Auscultation: normal bowel sounds; abdomen not distended Percussion/Palpation: abdomen soft; abdomen nontender Musculoskeletal: Complaining of pain in the right BKA stump Psychiatric: A+Ox3, euthymic affect Results & Data Results & Data ([facility]) Vital Signs (Past 12 Hours) Vital Signs Temp Pulse Pulse Resp BP Pulse Ox 06/14/20 16:15 37.4 C 78 22 99/59 L 95 06/14/20 15:53 37.8 C H 80 20 86/55 L 91 06/14/20 11:00 37.2 C 86 18 97/59 L 98 06/14/20 07:57 36.8 C 81 20 106/69 96 06/14/20 07:26 90 Laboratory Results Short CBC 06/14/20 Range/Units 08:26 WBC 19.07 H (4.8-10.8) K/uL Hgb 9.8 L (14.0-18.0) g/dL Hct 29.7 L (42-52) % Plt Count 356 (130-400) K/uL BMP 06/14/20 08:26 Sodium 134 L Potassium 3.8 Chloride 100 Carbon Dioxide 27 BUN 24 H Creatinine 1.15 Glucose 181 H Calcium 8.8 Liver Function 06/14/20 Range/Units 08:26 Total Bilirubin 0.8 D (0.2-1) mg/dl AST 18 (15-37) U/L ALT 16 (12-78) U/L Alkaline Phosphatase 93 (45-117) U/L Albumin 2.2 L (3.4-5.0) gm/dl Medications Administered Current Inpatient Medications Acetaminophen (Acetaminophen 325 Mg Tab) 650 mg PO Q4H PRN PRN Reason: Pain or Fever Stop: 07/12/20 19:27 Last Admin: 06/14/20 15:40 Dose: 650 mg Documented by: Aspirin (Aspirin 81 Mg Ectab) 81 mg PO QAM [facility] Stop: 07/13/20 08:59 Last Admin: 06/14/20 07:58 Dose: 81 mg Documented by: Atorvastatin Calcium (Atorvastatin 40 Mg Tab) 80 mg PO DAILY [facility] Stop: 07/13/20 08:59 Last Admin: 06/14/20 07:59 Dose: 80 mg Documented by: Clopidogrel Bisulfate (Clopidogrel Bisulfate 75 Mg Tab) 75 mg PO [facility] Stop: 07/13/20 08:59 Last Admin: 06/14/20 08:00 Dose: 75 mg Documented by: Clotrimazole (Clotrimazole 10 Mg Ivana) 10 mg BUCCAL [id number] [facility] Stop: 06/23/20 06:59 Last Admin: 06/14/20 14:47 Dose: Not Given Documented by: Furosemide (Furosemide 20 Mg Tab) 20 mg PO QAM [facility] Stop: 07/13/20 10:59 Last Admin: 06/14/20 07:59 Dose: 20 mg Documented by: Gabapentin (Gabapentin 300 Mg Cap) 300 mg PO TID [facility] Stop: 07/12/20 20:59 Last Admin: 06/14/20 12:55 Dose: Not Given Documented by: Heparin Sodium/Dextrose (Heparin Sodium/Dextrose) 25,000 units in 500 mls @ 23 mls/hr IV .[id number] [facility]; Protocol Stop: 07/12/20 20:14 Last Admin: 06/14/20 14:32 Dose: 1,150 units/hr, 23 mls/hr Documented by: Vancomycin HCl 1,000 mg/ (Sodium Chloride) 270 mls @ 200 mls/hr IV Q12H [facility] Stop: 06/15/20 05:59 Last Infusion: 06/14/20 07:16 Dose: Infused Documented by: Piperacillin Sod/Tazobactam (Sod 4.5 gm/ Dextrose) 120 mls @ 30 mls/hr IV Q8H [facility]; Protocol Stop: 06/21/20 17:59 Insulin Aspart (Insulin Aspart 100 Units/Ml 3 Ml Pen) 0 units SC ACHS [facility] Stop: 07/12/20 20:59 Last Admin: 06/14/20 12:11 Dose: 1 units Documented by: Insulin Glargine (Insulin Glargine Solostar 100 Units/Ml 3 Ml Pen) 0 units SC HS [facility]; Protocol Stop: 07/12/20 20:59 Last Admin: 06/13/20 20:24 Dose: 20 units Documented by: Lisinopril (Lisinopril 2.5 Mg Tab) 2.5 mg PO QAM [facility] Stop: 07/14/20 08:59 Last Admin: 06/14/20 08:01 Dose: 2.5 mg Documented by: Metoprolol Succinate (Metoprolol Succ 25mg Ext Rel Tab) 25 mg PO BID [facility] Stop: 07/13/20 08:59 Last Admin: 06/14/20 08:01 Dose: 25 mg Documented by: Miscellaneous Information (Vancomycin Consult Active) 1 ea N/A UD PRN PRN Reason: Consult Stop: 07/12/20 16:09 Miscellaneous Information (Piperacill/Tazobac Consult Active) 1 ea N/A UD PRN PRN Reason: Consult Stop: 07/14/20 12:14 Nitroglycerin (Nitroglycerin Sl 0.4 Mg/Tab Tab) 0.4 mg SL UD PRN PRN Reason: Chest Pain Stop: 07/12/20 19:27 Oxycodone HCl (Oxycodone Hcl Ir 5 Mg Tab (Immediate Release)) 10 mg PO Q4H PRN PRN Reason: Pain Stop: 06/26/20 19:27 Last Admin: 06/14/20 04:52 Dose: 10 mg Documented by: Polyethylene Glycol (Polyethylene (Miralax) 17 Gm Pack) 17 gm PO DAILY PRN PRN Reason: Constipation Stop: 07/12/20 19:27
[2020-06-14] MEDS ORDERED: VANCOMYCIN TROUGH ONE (17:30)
[2020-06-14] MEDS: PIPERACILLIN/TAZOBACTAM 4.5 GM in DEXTROSE 5% 100 ML IV SCH (18:01)
[2020-06-14] MEDS: INSULIN GLARGINE SOLOSTAR 100 UNITS/ML 3 ML PEN SC SCH (20:36)
[2020-06-15] MEDS: PIPERACILLIN/TAZOBACTAM 4.5 GM in DEXTROSE 5% 100 ML IV SCH ×3 (02:38→17:40)
[2020-06-15] MEDS: CLOTRIMAZOLE 10 MG TROCHE BUCCAL SCH ×5 (06:32→22:26)
[2020-06-15 07:48] LABS: Basophils # (auto) 0.04 K/uL (0-0.2); Basophils % (auto) 0.4 %; Eosinophils # (auto) 0.23 K/uL (0-0.5); Eosinophils % (auto) 2.1 %; Hematocrit (blood only) 27.4 % (42-52); Hemoglobin 8.9 g/dL (14.0-18.0); Immature Granulocytes # (auto) 0.03 K/uL (0.00-0.02); Immature Granulocytes % (auto) 0.3 %; Lymphocytes # (auto) 2.04 K/uL (1.2-3.4); Lymphocytes % (auto) 18.5 %; Mean Corpuscular Hemoglobin 31.6 pg (25-34); Mean Corpuscular Hgb Conc 32.5 g/dL (32-36); Mean Corpuscular Volume 97.2 fL (80-100); Mean Platelet Volume 10.2 fL (7.4-10.4); Monocytes # (auto) 1.01 K/uL (0.11-0.59); Monocytes % (auto) 9.1 %; Neutrophils % (auto) 69.6 %; Platelet Count 321 K/uL (130-400); RDW Coefficient of Variation 15.1 % (11.5-14.5); RDW Standard Deviation 53.5 fL (36.4-46.3); Red Blood Count 2.82 M/uL (4.7-6.1); White Blood Count 11.05 K/uL (4.8-10.8)
[2020-06-15 08:08] LABS: Partial Thromboplastin Ratio 1.9
[2020-06-15 08:21] LABS: BUN Creatinine Ratio 19.2 (10-20); Calcium 9.1 mg/dl (8.5-10.1); Creatinine Clr Calc Pharmacy 47.6 ml/min; Est GFR (African American) 71.9; Potassium 3.5 mmol/L (3.5-5.1)
[2020-06-15 08:24] LABS: Albumin Globulin Ratio 0.4 (0.9-2); Bilirubin,Total 0.6 mg/dl (0.2-1); Globulin 4.5 gm/dl (2.5-4.0); Phosphorus 3.4 mg/dl (2.5-4.9); Total Protein 6.5 gm/dl (6.4-8.2)
[2020-06-15] MEDS: INSULIN ASPART 100 UNITS/ML 3 ML PEN SC SCH ×4 (08:58→20:13)
[2020-06-15] MEDS: METOPROLOL SUCC 25MG EXT REL TAB PO SCH ×2 (08:59→20:27)
[2020-06-15] MEDS: ATORVASTATIN 40 MG TAB PO SCH (09:07)
[2020-06-15] MEDS: GABAPENTIN 300 MG CAP PO SCH ×3 (09:07→20:27)
[2020-06-15] MEDS: ASPIRIN 81 MG ECTAB PO SCH (09:08)
[2020-06-15] MEDS: CLOPIDOGREL BISULFATE 75 MG TAB PO SCH (09:08)
[2020-06-15] MEDS: FUROSEMIDE 20 MG TAB PO SCH (09:09)
[2020-06-15] MEDS: lisinopril 2.5 MG TAB PO SCH (09:09)
[2020-06-15] MEDS: oxyCODONE HCL IR 5 MG TAB (IMMEDIATE RELEASE) PO PRN ×2 (09:12→17:42)
[2020-06-15] MEDS ORDERED: HYDROmorphone INJ 0.5 MG/0.5 ML SYR IV STA (10:39)
--- NOTE | 2020-06-15 10:39 | Pharmacy Report ---
Pharmacy Abx Dose Progress Nt - Date of Service June 15, 2020 - Pharmacy Dosing Scope The patient is currently receiving the following antimicrobial agents per Pharmacy consult: VANCOMYCIN 1000mg IV every 12 hours - Objective Vital Signs (Past 12hrs): Vital Signs Temp Pulse Pulse Resp BP BP Pulse Ox 06/15/20 08:24 37.5 C 73 16 95/57 L 99 06/15/20 07:12 76 06/15/20 04:14 36.9 C 76 23 93/56 L 96 06/15/20 00:00 69 06/14/20 23:16 36.6 C 73 18 95/59 L 96 Pulse Ox 06/15/20 08:24 06/15/20 07:12 06/15/20 04:14 06/15/20 00:00 96 06/14/20 23:16 Lab Results (24hrs): Laboratory Tests (24 Hours) 06/15/20 06/15/20 06/15/20 07:09 07:09 07:09 WBC 11.05 H Neut # (Auto) 7.70 H Creatinine 1.21 Est Cr Clr Drug Dosing 47.6 Vancomycin Trough Random Vancomycin 20.1 06/14/20 17:52 WBC Neut # (Auto) Creatinine Est Cr Clr Drug Dosing Vancomycin Trough 21.9 Random Vancomycin - Assessment & Plan Assessment 64 year old M receiving VANCOMYCIN/ZOSYN for treatment of possible stump infection/cellulitis. Day # 3 of antimicrobial therapy Plan Vancomycin IV * Trough level of 21.9 mcg/mL is slightly supratherapeutic. * Change to 1000mg IV every 14 hours * Goal trough level for cellulitis : 15 to 20 mcg/mL * Will recheck a trough level in a few days or with any changes in renal function. Piperacillin/tazobactam * Continue 4.5 g IV extended infusion every 8 hours for CrCl greater than 20 mL/min (BMI > 35). Pharmacy will continue to follow and will adjust dose/frequency as necessary. Thank you.
[2020-06-15] MEDS: VANCOMYCIN HCL 1,000 MG in SODIUM CHLORIDE 0.9% 250 ML IV SCH (11:47)
[2020-06-15] MEDS: HEPARIN SODIUM/DEXTROSE 25,000 UNITS/500 ML BAG IV SCH (11:49)
--- NOTE | 2020-06-15 13:12 | Hospitalist Progress Note ---
Date of Service June 15, 2020 Assessment & Plan (1) Elevated troponin: Non-ST YOLANDA Troponin in ED 1.93>2.2>2.02 Known severe multi-vessel coronary artery disease with non-STEMI about 2 weeks ago.-Medical management is contemplated No chest pain, but experiencing dyspnea over past 1-2 days. EKG shows NSR with lateral ST depression, similar to previous tracings. Possible recurrent non-STEMI or demand ischemia. Continue antiplatelet therapy with aspirin and clopidogrel. Anticoagulate with IV heparin for a total of 48 hours Appreciate cardiology input and recommendation Beta-adriane doses have been adjusted No acute cardiac symptoms Will discontinue heparin and continue with dual antiplatelet (2) Coronary artery disease: As discussed above. Inoperable CAD as per cardiac cath during recent admission (3) CHF (congestive heart failure): History of ischemic cardiomyopathy with LVEF 35% per most recent echo. Exam reveals few bibasilar rales and slight JVD; no gallop appreciated. Chest x-ray shows cardiomegaly and pulmonary vascular congestion. Check [id number] at 12,243 Furosemide 40 mg IV today x 1, then re-evaluate. Continue metoprolol succinate. Added a small dose of lisinopril and furosemide will be continued Remains some shortness of breath in the chest which did show CHF We will continue with Lasix as prescribed (4) Leukocytosis: WBC 13,000. Afebrile. Lactate 2.2 --> 1.8.Procalcitonin < 0.05. Hemodynamically stable. Recent wound infection + osteomyelitis RLE (most recent wound culture grew Pseudomonas aeruginosa, Klebsiella oxytoca, and Group C beta strep; previous wound culture grew MRSA). Subsequent right AKA.Wound does not appear to be infected but remains very tender to palpate with swelling and increasing local temperature Possible sepsis (HR > 90, leukocytosis, elevated lactate). No cough; no infiltrates on chest x-ray. Urine does not appear to be infected. No diarrhea. Blood cultures obtained in ED and patient received IV vancomycin and ceftriaxone. White blood cell count has increased-antibiotics have upgraded to intravenous vancomycin and Zosyn Possible stump infection/cellulitis We will get MRI of the right lower leg-awaiting MRI of the right lower extremity White count has been improving (5) Altered mental status: Confused at home. Blood sugar at the time was > 400. CT head did not show any acute findings. Possible sepsis as discussed above. Probable toxic / metabolic encephalopathy secondary to hypoglycemia. Remains weak and lethargic Confusion has been clearing up (6) History of CVA (cerebrovascular accident): No acute findings on CT head. Continue antiplatelet therapy with aspirin and clopidogrel. Continue high-intensity statin. (7) Diabetes mellitus type 2 with complications: DM type 2 complicated by coronary artery disease and peripheral artery disease. Blood sugar in 400's at home. Lantus dose decreased during recent hospitalization [place] [facility] [place] Hgb A1c 9.6 on 05/30/20. Lantus / NovoLog per protocol. Will need ongoing diabetes education and support after discharge. (8) Dyslipidemia: LDL-c 82 on 05/31/20. Continue high-intensity statin therapy with atorvastatin. (9) Status post above-knee amputation of right lower extremity: S/P right AKA 06/03/20 at [facility] [place] Wound does not appear to be infected. Follow-up with [facility] as scheduled. We will get MRI of the right lower leg to rule out any abscess and/or fluid collection (10) COVID-19 ruled out: SARS-CoV-2 antigen screen negative (no COVID-19 symptoms; screening performed per protocol for admission). (11) DVT prophylaxis: Initially receiving IV heparin for possible acute coronary syndrome. Pain will be continued for 48 hours (12) Discharge planning issues: Discharge disposition to be determined; probable DC to home with services. Family Medicine follow-up with Dr. Moses. Follow-up with [facility]. Admission and Anticipated Discharge Date Admission Date: June 12, 2020 Subjective 06/13/2020 The patient was seen and examined in ICU He complains to have right above-knee stump pain but denies any chest pain, palpitation or shortness of breath Denies any fever and/or chills Remains very weak and lethargic 06/14/2020 The patient was seen and examined in medical telemetry unit He has been complaining of shortness of breath since this morning Denies any chest pain or palpitation His blood pressure has been running on the lower side 06/15/2020 The patient was seen and examined in medical telemetry unit He has been complaining of pain involving the right AKA stump His shortness of breath is a little bit better Denies any chest pain and/or palpitation Review of Systems Review of Systems: All systems reviewed and are unremarkable except as noted below Constitutional: + fatigue and + weakness Musculoskeletal: + joint pain (Pain and swelling of the above-named amputation stump on the right side) Endocrine: as per Subjective / HPI Hematologic / Lymphatic: + easy bruising; no easy bleeding and no lymphadenopathy Physical Exam Physical Exam: Lying in bed without any acute distress due to pain involving the right AKA stump Constitutional: well developed, well nourished, + acute distress (Right thigh pain), + ill appearing and + obese Eyes: PERRL, conjunctivae normal, anicteric sclerae ENMT: external ear and nose normal, oropharynx normal Neck: trachea midline, no thyromegaly Respiratory: no respiratory distress Auscultation: + diminished lung sounds; no crackles (Minimal crackles at the bases) Cardiovascular: Rate/Rhythm: regular rate and regular rhythm Heart Sounds: no murmur Gastrointestinal (Abdomen): Inspection/Auscultation: normal bowel sounds; abdomen not distended Percussion/Palpation: abdomen soft; abdomen nontender Musculoskeletal: Increasing pain and swelling involving the right AKA stump Neurologic: Alert awake and oriented x3, Psychiatric: A+Ox3, euthymic affect Lymphatic: no cervical or axillary lymphadenopathy Results & Data Results & Data ([facility]) Vital Signs (Past 12 Hours) Vital Signs Temp Pulse Pulse Resp BP BP Pulse Ox 06/15/20 08:24 37.5 C 73 16 95/57 L 99 06/15/20 07:12 76 06/15/20 04:14 36.9 C 76 23 93/56 L 96 Laboratory Results Short CBC 06/15/20 Range/Units 07:09 WBC 11.05 H (4.8-10.8) K/uL Hgb 8.9 L (14.0-18.0) g/dL Hct 27.4 L (42-52) % Plt Count 321 (130-400) K/uL BMP 06/15/20 07:09 Sodium 135 L Potassium 3.5 Chloride 99 Carbon Dioxide 28 BUN 23 H Creatinine 1.21 Glucose 150 H Calcium 9.1 Liver Function 06/15/20 Range/Units 07:09 Total Bilirubin 0.6 (0.2-1) mg/dl AST 16 (15-37) U/L ALT 13 (12-78) U/L Alkaline Phosphatase 86 (45-117) U/L Albumin 2.0 L (3.4-5.0) gm/dl Medications Administered Current Inpatient Medications Acetaminophen (Acetaminophen 325 Mg Tab) 650 mg PO Q4H PRN PRN Reason: Pain or Fever Stop: 07/12/20 19:27 Last Admin: 06/14/20 15:40 Dose: 650 mg Documented by: Aspirin (Aspirin 81 Mg Ectab) 81 mg PO QAM [facility] Stop: 07/13/20 08:59 Last Admin: 06/15/20 09:08 Dose: 81 mg Documented by: Atorvastatin Calcium (Atorvastatin 40 Mg Tab) 80 mg PO DAILY [facility] Stop: 07/13/20 08:59 Last Admin: 06/15/20 09:07 Dose: 80 mg Documented by: Clopidogrel Bisulfate (Clopidogrel Bisulfate 75 Mg Tab) 75 mg PO QAM [facility] Stop: 07/13/20 08:59 Last Admin: 06/15/20 09:08 Dose: 75 mg Documented by: Clotrimazole (Clotrimazole 10 Mg Ivana) 10 mg BUCCAL [id number] [facility] Stop: 06/23/20 06:59 Last Admin: 06/15/20 11:47 Dose: Not Given Documented by: Furosemide (Furosemide 20 Mg Tab) 20 mg PO QAM [facility] Stop: 07/13/20 10:59 Last Admin: 06/15/20 09:09 Dose: Not Given Documented by: Gabapentin (Gabapentin 300 Mg Cap) 300 mg PO TID [facility] Stop: 07/12/20 20:59 Last Admin: 06/15/20 13:01 Dose: 300 mg Documented by: Heparin Sodium/Dextrose (Heparin Sodium/Dextrose) 25,000 units in 500 mls @ 23 mls/hr IV .[id number] [facility]; Protocol Stop: 07/12/20 20:14 Last Admin: 06/15/20 11:49 Dose: 1,150 units/hr, 23 mls/hr Documented by: Piperacillin Sod/Tazobactam (Sod 4.5 gm/ Dextrose) 120 mls @ 30 mls/hr IV Q8H [facility]; Protocol Stop: 06/21/20 17:59 Last Admin: 06/15/20 09:00 Dose: 30 mls/hr Documented by: Vancomycin HCl 1,000 mg/ (Sodium Chloride) 270 mls @ 200 mls/hr IV Q14H [facility] Stop: 06/18/20 23:59 Last Admin: 06/15/20 11:47 Dose: 200 mls/hr Documented by: Insulin Aspart (Insulin Aspart 100 Units/Ml 3 Ml Pen) 0 units SC ACHS [facility] Stop: 07/12/20 20:59 Last Admin: 06/15/20 11:47 Dose: 5 units Documented by: Insulin Glargine (Insulin Glargine Solostar 100 Units/Ml 3 Ml Pen) 0 units SC HS [facility]; Protocol Stop: 07/12/20 20:59 Last Admin: 06/14/20 20:36 Dose: 20 units Documented by: Lisinopril (Lisinopril 2.5 Mg Tab) 2.5 mg PO QAM [facility] Stop: 07/14/20 08:59 Last Admin: 06/15/20 09:09 Dose: Not Given Documented by: Metoprolol Succinate (Metoprolol Succ 25mg Ext Rel Tab) 25 mg PO BID [facility] Stop: 07/13/20 08:59 Last Admin: 06/15/20 08:59 Dose: Not Given Documented by: Miscellaneous Information (Vancomycin Consult Active) 1 ea N/A UD PRN PRN Reason: Consult Stop: 07/12/20 16:09 Miscellaneous Information (Piperacill/Tazobac Consult Active) 1 ea N/A UD PRN PRN Reason: Consult Stop: 07/14/20 12:14 Nitroglycerin (Nitroglycerin Sl 0.4 Mg/Tab Tab) 0.4 mg SL UD PRN PRN Reason: Chest Pain Stop: 07/12/20 19:27 Oxycodone HCl (Oxycodone Hcl Ir 5 Mg Tab (Immediate Release)) 10 mg PO Q4H PRN PRN Reason: Pain Stop: 06/26/20 19:27 Last Admin: 06/15/20 09:12 Dose: 10 mg Documented by: Polyethylene Glycol (Polyethylene (Miralax) 17 Gm Pack) 17 gm PO DAILY PRN PRN Reason: Constipation Stop: 07/12/20 19:27
--- NOTE | 2020-06-15 13:34 | Magnetic Resonance Report ---
MRI OF THE RIGHT LOWER EXTREMITY WITHOUT IV CONTRAST CLINICAL HISTORY: Soft tissue infection of the right lower extremity stump. COMPARISON STUDY: Radiographs of the right knee dated 06/12/2020. MRI of the right lower extremity da marlyn 05/28/2020. TECHNIQUE: MRI of the right lower extremity stump is performed utilizing various T1 and T2-weighted s equences in the axial, sagittal, and coronal planes. The examination is severely compromised by motio n artifact which degrades diagnostic utility. IV contrast was not administered. FINDINGS: There is postoperative change consistent with above knee amputation. There is no definite m arrow edema identified within the distal femoral stump. There is fluid identified around the distal f emur at the stump which measures approximately 6 x 6 x 7.5 cm. Soft tissue intramuscular edema is anastasiya ntified around the distal stump. IMPRESSION: 1. Severely motion compromised examination. This degrades diagnostic utility. 2. There is postoperative change from above-knee amputation. There is no clear marrow abnormality anastasiya ntified within the distal femur at the resection margin. 3. There is a pocket of fluid identified around the distal femoral resection margin as detailed above . The sterility of this fluid cannot be assessed by imaging. 4. Soft tissue and intramuscular edema is present in the distal thigh around the resection site. Winston elate for evidence of cellulitis/myositis. Dictated: 06/15/2020 12:46 PM Transcribed: 06/15/2020 1:05 PM Laureen [id number] LAUREN_David Electronically signed by: Leif Ramires M.D. 06/15/2020 1:32 PM
--- NOTE | 2020-06-15 14:48 | Communication Note ---
Date of Service: June 15, 2020 Code purple was called at around 2:30 PM Patient noted to have decreased responsiveness with a pale color and there awake and look Remain hemodynamically stable Denies any significant pain and/or shortness of breath Received Dilaudid around 10:30 in the morning Has been conversing but remains very weak and lethargic Has had MRI of the right lower extremity this morning Plan We will get EKG, troponin, CBC, PRP and magnesium level We will observe for now We will talk with the family members Dr Beth Gerardo
[2020-06-15 15:05] LABS: Basophils # (auto) 0.04 K/uL (0-0.2); Basophils % (auto) 0.4 %; Hematocrit (blood only) 26.5 % (42-52); Hemoglobin 8.9 g/dL (14.0-18.0); Immature Granulocytes # (auto) 0.04 K/uL (0.00-0.02); Immature Granulocytes % (auto) 0.4 %; Lymphocytes # (auto) 1.79 K/uL (1.2-3.4); Lymphocytes % (auto) 17.9 %; Mean Corpuscular Hemoglobin 32.6 pg (25-34); Mean Corpuscular Hgb Conc 33.6 g/dL (32-36); Mean Corpuscular Volume 97.1 fL (80-100); Mean Platelet Volume 10.1 fL (7.4-10.4); Monocytes # (auto) 0.67 K/uL (0.11-0.59); Monocytes % (auto) 6.7 %; Neutrophils # (auto) 7.26 K/uL (1.4-6.5); Neutrophils % (auto) 72.6 %; Platelet Count 301 K/uL (130-400); RDW Coefficient of Variation 14.9 % (11.5-14.5); Red Blood Count 2.73 M/uL (4.7-6.1)
[2020-06-15 15:22] LABS: Calcium 8.3 mg/dl (8.5-10.1); Creatinine Clr Calc Pharmacy 43.3 ml/min; Est GFR (African American) 64.1; Est GFR (Non-African American) 55.3; Magnesium 2.1 mg/dl (1.8-2.4); Potassium 3.7 mmol/L (3.5-5.1)
[2020-06-15 15:29] LABS: Troponin I 0.339 ng/ml (0-0.045)
--- NOTE | 2020-06-15 18:29 | Electrocardiogram Report ---
Test Reason : Blood Pressure : / mmHG Vent. Rate : 072 BPM Atrial Rate : 072 BPM P-R Int : 216 ms QRS Dur : 116 ms QT Int : 424 ms P-R-T Axes : 059 069 176 degrees QTc Int : 464 ms Sinus rhythm with 1st degree A-V block Prolonged QT Abnormal ECG When compared with ECG of 14-JUN-2020 07:35, LA interval has increased ST no longer depressed in Anterior leads Confirmed by Bjorn Ocampo ([id number]) on 06/15/2020 6:29:22 PM Referred By: REFERRED SELF Confirmed By:Bjorn Ocampo
[2020-06-15] MEDS ORDERED: NALOXONE HCL 0.4 MG/1 ML VIAL/CARP IV STA (20:12)
[2020-06-15] MEDS: INSULIN GLARGINE SOLOSTAR 100 UNITS/ML 3 ML PEN SC SCH (20:13)
[2020-06-15 20:49] LABS: Basophils # (auto) 0.04 K/uL (0-0.2); Basophils % (auto) 0.4 %; Eosinophils # (auto) 0.29 K/uL (0-0.5); Eosinophils % (auto) 2.9 %; Hemoglobin 9.2 g/dL (14.0-18.0); Immature Granulocytes # (auto) 0.02 K/uL (0.00-0.02); Immature Granulocytes % (auto) 0.2 %; Lymphocytes # (auto) 2.19 K/uL (1.2-3.4); Mean Corpuscular Hemoglobin 31.5 pg (25-34); Mean Corpuscular Volume 95.9 fL (80-100); Mean Platelet Volume 9.9 fL (7.4-10.4); Monocytes # (auto) 0.87 K/uL (0.11-0.59); Monocytes % (auto) 8.7 %; Neutrophils # (auto) 6.55 K/uL (1.4-6.5); Neutrophils % (auto) 65.8 %; Platelet Count 283 K/uL (130-400); RDW Coefficient of Variation 14.9 % (11.5-14.5); RDW Standard Deviation 52.4 fL (36.4-46.3); Red Blood Count 2.92 M/uL (4.7-6.1); White Blood Count 9.96 K/uL (4.8-10.8)
[2020-06-15 20:50] LABS: Base Excess ABG 2.6 mEq/L (-9-1.8); HCO3 ABG 27 mmol/L (19-24); Oxygen Saturation ABG 94.6 % (90-95); PCO2 ABG 41 mmHg (35-46); PO2 ABG 84 mmHg (80-95); pH ABG 7.43 (7.35-7.45)
[2020-06-15 20:56] LABS: Allen Test Pos (Pos)
[2020-06-15 21:07] LABS: Albumin Level 1.9 gm/dl (3.4-5.0); BUN Creatinine Ratio 18.5 (10-20); Calcium 8.4 mg/dl (8.5-10.1); Creatinine Clr Calc Pharmacy 49.3 ml/min; Est GFR (African American) 74.9; Est GFR (Non-African American) 64.6; Magnesium 2.1 mg/dl (1.8-2.4); Potassium 3.5 mmol/L (3.5-5.1)
[2020-06-15 21:17] LABS: Albumin Globulin Ratio 0.4 (0.9-2); Bilirubin,Total 0.5 mg/dl (0.2-1); Globulin 4.4 gm/dl (2.5-4.0); Total Protein 6.3 gm/dl (6.4-8.2); Troponin I 0.384 ng/ml (0-0.045)
[2020-06-15 21:33] LABS: Mean Corpuscular Hgb Conc 32.9 g/dL (32-36)
[2020-06-16] MEDS: VANCOMYCIN HCL 1,000 MG in SODIUM CHLORIDE 0.9% 250 ML IV SCH ×2 (00:54→14:40)
[2020-06-16] MEDS: PIPERACILLIN/TAZOBACTAM 4.5 GM in DEXTROSE 5% 100 ML IV SCH ×3 (02:22→17:16)
[2020-06-16 07:25] LABS: Hematocrit (blood only) 26.7 % (42-52); Hemoglobin 8.8 g/dL (14.0-18.0); Mean Corpuscular Hemoglobin 32.2 pg (25-34); Mean Corpuscular Volume 97.8 fL (80-100); Platelet Count 307 K/uL (130-400); RDW Coefficient of Variation 14.9 % (11.5-14.5); RDW Standard Deviation 53.6 fL (36.4-46.3); Red Blood Count 2.73 M/uL (4.7-6.1); White Blood Count 8.89 K/uL (4.8-10.8)
[2020-06-16 07:43] LABS: BUN Creatinine Ratio 15.6 (10-20); Calcium 8.5 mg/dl (8.5-10.1); Creatinine Clr Calc Pharmacy 52.8 ml/min; Est GFR (African American) 81.5; Est GFR (Non-African American) 70.4; Potassium 3.6 mmol/L (3.5-5.1)
[2020-06-16] MEDS: CLOTRIMAZOLE 10 MG TROCHE BUCCAL SCH ×5 (08:25→21:18)
[2020-06-16] MEDS: CLOPIDOGREL BISULFATE 75 MG TAB PO SCH (08:27)
[2020-06-16] MEDS: ATORVASTATIN 40 MG TAB PO SCH (08:27)
[2020-06-16] MEDS: FUROSEMIDE 20 MG TAB PO SCH (08:27)
[2020-06-16] MEDS: GABAPENTIN 300 MG CAP PO SCH ×3 (08:28→21:18)
[2020-06-16] MEDS: ASPIRIN 81 MG ECTAB PO SCH (08:28)
[2020-06-16] MEDS: lisinopril 2.5 MG TAB PO SCH (08:28)
[2020-06-16] MEDS: METOPROLOL SUCC 25MG EXT REL TAB PO SCH ×2 (08:28→21:18)
[2020-06-16] MEDS: INSULIN ASPART 100 UNITS/ML 3 ML PEN SC SCH ×4 (08:30→21:17)
--- NOTE | 2020-06-16 12:58 | Cardiology Progress Note ---
Date of Service June 16, 2020 Assessment & Plan (1) Non-ST elevation (NSTEMI) myocardial infarction: Patient currently without symptoms. Tolerating medication adjustments as ordered As previously noted patient underwent recent diagnostic cardiac catheterization with critical coronary disease define with high-grade calcified left main stenosis not amenable to coronary intervention and poor surgical targets as a nonsurgical option. Left anatomy is dominant essentially all coronary perfusion through critical left main stenosis. Would continue current medications as ordered. Continue to treat underlying medical issues, possible infection. Will follow volume status close on IV an tibiotics Extremely high risk for further cardiac ischemia and deterioration Patient currently tolerating medical therapy changes. Now off anticoagulation on dual antiplatelet therapy. No further recommendations (2) Acute on chronic heart failure with reduced ejection fraction and diastolic dysfunction: (3) Status post above-knee amputation of right lower extremity: (4) PAD (peripheral artery disease): Admission and Anticipated Discharge Date Admission Date: June 12, 2020 Subjective Patient seen and examined, chart, medications, telemetry reviewed. Records reflect code purple yesterday however without arrhythmia on telemetry,, EKG without change or abnormality. Patient today brighter without complaint other than pain at right incision line. No chest pains or shortness of breath Physical Exam Constitutional: WD/WN, vitals as above Eyes: PERRL, conjunctivae normal, anicteric sclerae ENMT: external ear and nose normal, oropharynx normal Neck: trachea midline, no thyromegaly Respiratory: Auscultation: + diminished lung sounds; no rales Cardiovascular: RRR, no murmur, no edema Results & Data ([facility]) Vital Signs (Past 12 Hours) Vital Signs Temp Pulse Pulse Resp BP BP Pulse Ox 06/16/20 11:51 37.0 C 74 18 108/64 96 06/16/20 07:38 74 06/16/20 07:22 36.6 C 64 18 99/62 L 96 06/16/20 02:42 37.4 C 72 18 100/64 94
--- NOTE | 2020-06-16 13:19 | Hospitalist Progress Note ---
Date of Service June 16, 2020 Assessment & Plan (1) Elevated troponin: Non-ST YOLANDA Troponin in ED 1.93>2.2>2.02 Known severe multi-vessel coronary artery disease with non-STEMI about 2 weeks ago.-Medical management is contemplated No chest pain, but experiencing dyspnea over past 1-2 days. EKG shows NSR with lateral ST depression, similar to previous tracings. Possible recurrent non-STEMI or demand ischemia. Continue antiplatelet therapy with aspirin and clopidogrel. Anticoagulate with IV heparin for a total of 48 hours Appreciate cardiology input and recommendation Beta-adriane doses have been adjusted No acute cardiac symptoms Will discontinue heparin and continue with dual antiplatelet (2) Coronary artery disease: As discussed above. Inoperable CAD as per cardiac cath during recent admission (3) CHF (congestive heart failure): History of ischemic cardiomyopathy with LVEF 35% per most recent echo. Exam reveals few bibasilar rales and slight JVD; no gallop appreciated. Chest x-ray shows cardiomegaly and pulmonary vascular congestion. Check [id number] at 12,243 Furosemide 40 mg IV today x 1, then re-evaluate. Continue metoprolol succinate. Added a small dose of lisinopril and furosemide will be continued Remains some shortness of breath in the chest which did show CHF We will continue with Lasix as prescribed (4) Leukocytosis: Right AKA stump cellulitis/myositis(right AKA was done on 06/03/2020 at [facility] by Dr.J China Mosqueda ) WBC 13,000 omn admission. Afebrile. Lactate 2.2 --> 1.8.Procalcitonin < 0.05. Hemodynamically stable. Recent wound infection + osteomyelitis RLE (most recent wound culture grew Pseudomonas aeruginosa, Klebsiella oxytoca, and Group C beta strep; previous wound culture grew MRSA). Subsequent right AKA.Wound does not appear to be infected but remains very tender to palpate with swelling and increasing local temperature Possible sepsis (HR > 90, leukocytosis, elevated lactate). No cough; no infiltrates on chest x-ray. Urine does not appear to be infected. No diarrhea. Blood cultures obtained in ED and patient received IV vancomycin and ceftriaxone. White blood cell count has increased-antibiotics have upgraded to intravenous vancomycin and Zosyn MRI of the stump did show cellulitis/myositis but no evidence of abscess Discussed with the surgeon Dr. Mosqueda in [place]-and supports the diagnosis of myositis ID consultation has been placed for direction and use of antibiotic He remains on intravenous vancomycin and Zosyn Afebrile and white count has decreased (5) Altered mental status: Confused at home. Blood sugar at the time was > 400. CT head did not show any acute findings. Possible sepsis as discussed above. Probable toxic / metabolic encephalopathy secondary to hypoglycemia. Remains weak and lethargic Confusion has been clearing up (6) History of CVA (cerebrovascular accident): No acute findings on CT head. Continue antiplatelet therapy with aspirin and clopidogrel. Continue high-intensity statin. (7) Diabetes mellitus type 2 with complications: DM type 2 complicated by coronary artery disease and peripheral artery disease. Blood sugar in 400's at home. Lantus dose decreased during recent hospitalization at [facility]. Hgb A1c 9.6 on 05/30/20. Lantus / NovoLog per protocol. Will need ongoing diabetes education and support after discharge. (8) Dyslipidemia: LDL-c 82 on 05/31/20. Continue high-intensity statin therapy with atorvastatin. (9) Status post above-knee amputation of right lower extremity: S/P right AKA 06/03/20 at [facility]. Wound does not appear to be infected. Follow-up with [facility] as scheduled. We will get MRI of the right lower leg to rule out any abscess and/or fluid collection As above (10) COVID-19 ruled out: SARS-CoV-2 antigen screen negative (no COVID-19 symptoms; screening performed per protocol for admission). (11) DVT prophylaxis: Initially receiving IV heparin for possible acute coronary syndrome. Pain will be continued for 48 hours We will put him on prophylactic dose of heparin (12) Discharge planning issues: Discharge disposition to be determined; probable DC to home with services. Family Medicine follow-up with Dr. Moses. Follow-up with [facility]. Admission and Anticipated Discharge Date Admission Date: June 12, 2020 Subjective 06/13/2020 The patient was seen and examined in ICU He complains to have right above-knee stump pain but denies any chest pain, palpitation or shortness of breath Denies any fever and/or chills Remains very weak and lethargic 06/14/2020 The patient was seen and examined in medical telemetry unit He has been complaining of shortness of breath since this morning Denies any chest pain or palpitation His blood pressure has been running on the lower side 06/15/2020 The patient was seen and examined in medical telemetry unit He has been complaining of pain involving the right AKA stump His shortness of breath is a little bit better Denies any chest pain and/or palpitation 06/16/2020 The patient was seen and examined in medical telemetry unit He has had 2 episodes of semiresponsiveness in last 24 hours each lasted for about 30 to 40 seconds During the last episode she was given Narcan and that made him awake and alert Has been feeling a lot better since this morning Denies any significant symptoms and the pain in the right leg stump better Review of Systems Review of Systems: All systems reviewed and are unremarkable except as noted below Constitutional: + fatigue and + weakness Musculoskeletal: + joint pain (Pain and swelling of the above-named amputation stump on the right side) Hematologic / Lymphatic: + easy bruising; no easy bleeding and no lymphadenopathy Physical Exam Physical Exam: Lying in bed without any acute distress Constitutional: well developed, well nourished, + acute distress (Right thigh pain), + ill appearing and + obese Eyes: PERRL, conjunctivae normal, anicteric sclerae ENMT: external ear and nose normal, oropharynx normal Neck: trachea midline, no thyromegaly Respiratory: no respiratory distress Auscultation: + diminished lung sounds; no crackles (Minimal crackles at the bases) Cardiovascular: Rate/Rhythm: regular rate and regular rhythm Heart Sounds: no murmur Gastrointestinal (Abdomen): Inspection/Auscultation: normal bowel sounds; abdomen not distended Percussion/Palpation: abdomen soft; abdomen nontender Musculoskeletal: Right BKA Neurologic: Alert, awake and oriented x3 Psychiatric: A+Ox3, euthymic affect Lymphatic: no cervical or axillary lymphadenopathy Results & Data Results & Data ([facility]) Vital Signs (Past 12 Hours) Vital Signs Temp Pulse Pulse Resp BP BP Pulse Ox 06/16/20 11:51 37.0 C 74 18 108/64 96 06/16/20 07:38 74 06/16/20 07:22 36.6 C 64 18 99/62 L 96 06/16/20 02:42 37.4 C 72 18 100/64 94 Laboratory Results Short CBC 06/15/20 06/15/20 06/16/20 Range/Units 14:47 20:34 07:12 WBC 10.00 9.96 8.89 (4.8-10.8) K/uL Hgb 8.9 L 9.2 L 8.8 L (14.0-18.0) g/dL Hct 26.5 L 28.0 L 26.7 L (42-52) % Plt Count 301 283 307 (130-400) K/uL BMP 06/15/20 06/15/20 06/16/20 14:47 20:34 07:12 Sodium 134 L 135 L 137 Potassium 3.7 3.5 3.6 Chloride 99 100 103 Carbon Dioxide 29 27 29 BUN 24 H 22 H 17 Creatinine 1.33 1.17 1.09 Glucose 256 H 187 H 87 Calcium 8.3 L 8.4 L 8.5 Cardiac Enzymes 06/15/20 06/15/20 Range/Units 14:47 20:34 Troponin I 0.339 H* 0.384 H* (0-0.045) ng/ml Liver Function 06/15/20 Range/Units 20:34 Total Bilirubin 0.5 (0.2-1) mg/dl AST 23 (15-37) U/L ALT 12 (12-78) U/L Alkaline Phosphatase 81 (45-117) U/L Albumin 1.9 L (3.4-5.0) gm/dl Medications Administered Current Inpatient Medications Acetaminophen (Acetaminophen 325 Mg Tab) 650 mg PO Q4H PRN PRN Reason: Pain or Fever Stop: 07/12/20 19:27 Last Admin: 06/14/20 15:40 Dose: 650 mg Documented by: Aspirin (Aspirin 81 Mg Ectab) [facility] [place] [place] Stop: 07/13/20 08:59 Last Admin: 06/16/20 08:28 Dose: 81 mg Documented by: Atorvastatin Calcium (Atorvastatin 40 Mg Tab) 80 mg PO DAILY [facility] Stop: 07/13/20 08:59 Last Admin: 06/16/20 08:27 Dose: 80 mg Documented by: Clopidogrel Bisulfate (Clopidogrel Bisulfate 75 Mg Tab) [facility] [place] Stop: 07/13/20 08:59 Last Admin: 06/16/20 08:27 Dose: 75 mg Documented by: Clotrimazole (Clotrimazole 10 Mg Ivana) 10 mg BUCCAL 5XDQ4H [facility] Stop: 06/23/20 06:59 Last Admin: 06/16/20 10:21 Dose: Not Given Documented by: Furosemide (Furosemide 20 Mg Tab) 20 mg PO QAM [facility] Stop: 07/13/20 10:59 Last Admin: 06/16/20 08:27 Dose: Not Given Documented by: Gabapentin (Gabapentin 300 Mg Cap) 300 mg PO TID [facility] Stop: 07/12/20 20:59 Last Admin: 06/16/20 13:04 Dose: Not Given Documented by: Piperacillin Sod/Tazobactam (Sod 4.5 gm/ Dextrose) 120 mls @ 30 mls/hr IV Q8H [facility]; Protocol Stop: 06/21/20 17:59 Last Infusion: 06/16/20 13:20 Dose: Infused Documented by: Vancomycin HCl 1,000 mg/ (Sodium Chloride) 270 mls @ 200 mls/hr IV Q14H [facility] Stop: 06/18/20 23:59 Last Infusion: 06/16/20 02:21 Dose: Infused Documented by: Insulin Aspart (Insulin Aspart 100 Units/Ml 3 Ml Pen) 0 units SC ACHS [facility] Stop: 07/12/20 20:59 Last Admin: 06/16/20 12:02 Dose: 2 units Documented by: Insulin Glargine (Insulin Glargine Solostar 100 Units/Ml 3 Ml Pen) 0 units SC HS [facility]; Protocol Stop: 07/12/20 20:59 Last Admin: 06/15/20 20:13 Dose: 20 units Documented by: Lisinopril (Lisinopril 2.5 Mg Tab) 2.5 mg PO QAM [facility] Stop: 07/14/20 08:59 Last Admin: 06/16/20 08:28 Dose: Not Given Documented by: Metoprolol Succinate (Metoprolol Succ 25mg Ext Rel Tab) 25 mg PO BID [facility] Stop: 07/13/20 08:59 Last Admin: 06/16/20 08:28 Dose: Not Given Documented by: Miscellaneous Information (Vancomycin Consult Active) 1 ea N/A UD PRN PRN Reason: Consult Stop: 07/12/20 16:09 Miscellaneous Information (Piperacill/Tazobac Consult Active) 1 ea N/A UD PRN PRN Reason: Consult Stop: 07/14/20 12:14 Nitroglycerin (Nitroglycerin Sl 0.4 Mg/Tab Tab) 0.4 mg SL UD PRN PRN Reason: Chest Pain Stop: 07/12/20 19:27 Oxycodone HCl (Oxycodone Hcl Ir 5 Mg Tab (Immediate Release)) 10 mg PO Q4H PRN PRN Reason: Pain Stop: 06/26/20 19:27 Last Admin: 06/15/20 17:42 Dose: 10 mg Documented by: Polyethylene Glycol (Polyethylene (Miralax) 17 Gm Pack) 17 gm PO DAILY PRN PRN Reason: Constipation Stop: 07/12/20 19:27
[2020-06-16] MEDS: INSULIN GLARGINE SOLOSTAR 100 UNITS/ML 3 ML PEN SC SCH (21:17)
[2020-06-16] MEDS: HEPARIN SOD 5,000 UNIT/0.5 ML VIAL SQ SCH (21:18)
[2020-06-17] MEDS: PIPERACILLIN/TAZOBACTAM 4.5 GM in DEXTROSE 5% 100 ML IV SCH (01:03)
[2020-06-17] MEDS ORDERED: VANCOMYCIN TROUGH ONE (04:30)
[2020-06-17 05:34] LABS: Basophils # (auto) 0.03 K/uL (0-0.2); Basophils % (auto) 0.3 %; Eosinophils % (auto) 2.1 %; Hematocrit (blood only) 29.3 % (42-52); Hemoglobin 9.6 g/dL (14.0-18.0); Immature Granulocytes # (auto) 0.04 K/uL (0.00-0.02); Immature Granulocytes % (auto) 0.4 %; Lymphocytes # (auto) 1.42 K/uL (1.2-3.4); Lymphocytes % (auto) 15.2 %; Mean Corpuscular Hemoglobin 31.8 pg (25-34); Mean Corpuscular Hgb Conc 32.8 g/dL (32-36); Mean Platelet Volume 10.2 fL (7.4-10.4); Monocytes # (auto) 0.74 K/uL (0.11-0.59); Monocytes % (auto) 7.9 %; Neutrophils # (auto) 6.93 K/uL (1.4-6.5); Neutrophils % (auto) 74.1 %; Platelet Count 333 K/uL (130-400); RDW Coefficient of Variation 14.7 % (11.5-14.5); RDW Standard Deviation 52.1 fL (36.4-46.3); Red Blood Count 3.02 M/uL (4.7-6.1); White Blood Count 9.36 K/uL (4.8-10.8)
[2020-06-17 06:03] LABS: BUN Creatinine Ratio 11.1 (10-20); Calcium 8.3 mg/dl (8.5-10.1); Creatinine Clr Calc Pharmacy 54.1 ml/min; Est GFR (African American) 85.3; Est GFR (Non-African American) 73.6; Potassium 3.4 mmol/L (3.5-5.1)
[2020-06-17] MEDS: VANCOMYCIN HCL 1,000 MG in SODIUM CHLORIDE 0.9% 250 ML IV SCH (06:15)
[2020-06-17] MEDS: CLOTRIMAZOLE 10 MG TROCHE BUCCAL SCH ×5 (06:16→20:57)
[2020-06-17] MEDS: FUROSEMIDE 20 MG TAB PO SCH (08:32)
[2020-06-17] MEDS: lisinopril 2.5 MG TAB PO SCH (08:33)
[2020-06-17] MEDS: GABAPENTIN 300 MG CAP PO SCH ×3 (08:33→20:57)
[2020-06-17] MEDS: INSULIN ASPART 100 UNITS/ML 3 ML PEN SC SCH ×4 (08:39→20:58)
[2020-06-17] MEDS ORDERED: POTASSIUM CHLORIDE CRTAB 20 MEQ TABCR PO STA (08:41)
[2020-06-17] MEDS: CEFEPIME 2,000 MG in SYRINGE 0 ML IV SCH ×2 (10:28→20:57)
[2020-06-17] MEDS: ASPIRIN 81 MG ECTAB PO SCH (10:29)
[2020-06-17] MEDS: CLOPIDOGREL BISULFATE 75 MG TAB PO SCH (10:29)
[2020-06-17] MEDS: HEPARIN SOD 5,000 UNIT/0.5 ML VIAL SQ SCH ×2 (10:29→20:56)
[2020-06-17] MEDS: METOPROLOL SUCC 25MG EXT REL TAB PO SCH ×2 (10:31→20:57)
[2020-06-17] MEDS: ATORVASTATIN 40 MG TAB PO SCH (13:20)
--- NOTE | 2020-06-17 16:36 | Hospitalist Progress Note ---
Date of Service June 17, 2020 Assessment & Plan (1) Elevated troponin: Non-ST YOLANDA Troponin in ED 1.93>2.2>2.02 Known severe multi-vessel coronary artery disease with non-STEMI about 2 weeks ago.-Medical management is contemplated No chest pain, but experiencing dyspnea over past 1-2 days. EKG shows NSR with lateral ST depression, similar to previous tracings. Possible recurrent non-STEMI or demand ischemia. Continue antiplatelet therapy with aspirin and clopidogrel. Anticoagulate with IV heparin for a total of 48 hours Appreciate cardiology input and recommendation Beta-adriane doses have been adjusted No acute cardiac symptoms Will discontinue heparin and continue with dual antiplatelet Cardiology signed off (2) Coronary artery disease: As discussed above. Inoperable CAD as per cardiac cath during recent admission (3) CHF (congestive heart failure): History of ischemic cardiomyopathy with LVEF 35% per most recent echo. Exam reveals few bibasilar rales and slight JVD; no gallop appreciated. Chest x-ray shows cardiomegaly and pulmonary vascular congestion. Check [id number] at 12,243 Furosemide 40 mg IV today x 1, then re-evaluate. Continue metoprolol succinate. Added a small dose of lisinopril and furosemide will be continued Remains some shortness of breath in the chest which did show CHF We will continue with Lasix as prescribed (4) Leukocytosis: Right AKA stump cellulitis/myositis(right AKA was done on 06/03/2020 at [facility] by Dr.J China Mosqueda ) WBC 13,000 omn admission. Afebrile.Lactate 2.2 --> 1.8.Procalcitonin < 0.05.Hemodynamically stable on admission Recent wound infection + osteomyelitis RLE (most recent wound culture grew Pseudomonas aeruginosa, Klebsiella oxytoca, and Group C beta strep; previous wound culture grew MRSA). Subsequent right AKA.Wound does not appear to be infected but remains very tender to palpate with swelling and increasing local temperature Possible sepsis (HR > 90, leukocytosis, elevated lactate). No cough; no infiltrates on chest x-ray. Urine does not appear to be infected. No diarrhea. Blood cultures obtained in ED and patient received IV vancomycin and ceftriaxone. White blood cell count has increased-antibiotics have upgraded to intravenous vancomycin and Zosyn MRI of the stump did show cellulitis/myositis but no evidence of abscess Discussed with the surgeon Dr. Mosqueda in [place]-and supports the diagnosis of myositis Appreciate ID input and recommendation: ::Will DC intravenous vancomycin and change Zosyn to cefepime 2 g IV every 12 hours for a total of 2 to 3 weeks. CRP every week until complete and then every other week for 3 months. PT and OT have been ordered unlikely to need placement on discharge (5) Altered mental status: Confused at home. Blood sugar at the time was > 400. CT head did not show any acute findings. Possible sepsis as discussed above. Probable toxic / metabolic encephalopathy secondary to hypoglycemia. Remains weak and lethargic Confusion has been clearing up (6) History of CVA (cerebrovascular accident): No acute findings on CT head. Continue antiplatelet therapy with aspirin and clopidogrel. Continue high-intensity statin. (7) Diabetes mellitus type 2 with complications: DM type 2 complicated by coronary artery disease and peripheral artery disease. Blood sugar in 400's at home. Lantus dose decreased during recent hospitalization at [facility]. Hgb A1c 9.6 on 05/30/20. Lantus / NovoLog per protocol. Will need ongoing diabetes education and support after discharge. (8) Dyslipidemia: LDL-c 82 on 05/31/20. Continue high-intensity statin therapy with atorvastatin. (9) Status post above-knee amputation of right lower extremity: S/P right AKA 06/03/20 at [facility]. Wound does not appear to be infected. Follow-up with [facility] as scheduled. We will get MRI of the right lower leg to rule out any abscess and/or fluid collection As above (10) COVID-19 ruled out: SARS-CoV-2 antigen screen negative (no COVID-19 symptoms; screening performed per protocol for admission). (11) DVT prophylaxis: Initially receiving IV heparin for possible acute coronary syndrome. Pain will be continued for 48 hours We will put him on prophylactic dose of heparin (12) Discharge planning issues: Discharge disposition to be determined; probable DC to home with services. Family Medicine follow-up with Dr. Moses. Follow-up with [facility]. Discussed with the daughter. Admission and Anticipated Discharge Date Admission Date: June 12, 2020 Subjective 06/13/2020 The patient was seen and examined in ICU He complains to have right above-knee stump pain but denies any chest pain, palpitation or shortness of breath Denies any fever and/or chills Remains very weak and lethargic 06/14/2020 The patient was seen and examined in medical telemetry unit He has been complaining of shortness of breath since this morning Denies any chest pain or palpitation His blood pressure has been running on the lower side 06/15/2020 The patient was seen and examined in medical telemetry unit He has been complaining of pain involving the right AKA stump His shortness of breath is a little bit better Denies any chest pain and/or palpitation 06/16/2020 The patient was seen and examined in medical telemetry unit He has had 2 episodes of semiresponsiveness in last 24 hours each lasted for about 30 to 40 seconds During the last episode she was given Narcan and that made him awake and alert Has been feeling a lot better since this morning Denies any significant symptoms and the pain in the right leg stump better 06/17/2020 The patient was seen and examined in medical telemetry unit He has been feeling much better Remains weak and lethargic and the pain in the right amputation stump is improved Review of Systems Review of Systems: All systems reviewed and are unremarkable except as noted below Constitutional: + fatigue and + weakness Cardiovascular: no chest pain and no palpitations Musculoskeletal: + joint pain (Pain and swelling of the above-named amputation stump on the right side) Hematologic / Lymphatic: + easy bruising; no easy bleeding and no lymphadenopathy Physical Exam Physical Exam: Lying in bed without any acute distress Constitutional: well developed, well nourished, + acute distress (Minimal shortness of breath at rest) and + obese; not ill appearing Eyes: PERRL, conjunctivae normal, anicteric sclerae ENMT: external ear and nose normal, oropharynx normal Neck: trachea midline, no thyromegaly Respiratory: no respiratory distress Auscultation: + diminished lung sounds; no crackles (Minimal crackles at the bases) Cardiovascular: Rate/Rhythm: regular rate and regular rhythm Heart Sounds: no murmur Gastrointestinal (Abdomen): Inspection/Auscultation: normal bowel sounds; abdomen not distended Percussion/Palpation: abdomen soft; abdomen nontender Musculoskeletal: Examination of the right AKA stump showed decreasing swelling, pain and warmth Psychiatric: A+Ox3, euthymic affect Lymphatic: no cervical or axillary lymphadenopathy Results & Data Results & Data ([facility]) Vital Signs (Past 12 Hours) Vital Signs Temp Pulse Pulse Resp BP BP Pulse Ox 06/17/20 15:00 36.7 C 75 18 136/75 96 06/17/20 11:00 36.6 C 76 20 147/76 H 98 06/17/20 07:40 37.1 C 78 18 99/69 L 92 06/17/20 07:35 82 06/17/20 04:32 36.5 C 73 18 109/58 L 97 Laboratory Results Short CBC 06/17/20 Range/Units 04:44 WBC 9.36 (4.8-10.8) K/uL Hgb 9.6 L (14.0-18.0) g/dL Hct 29.3 L (42-52) % Plt Count 333 (130-400) K/uL BMP 06/17/20 04:44 Sodium 138 Potassium 3.4 L Chloride 104 Carbon Dioxide 30 BUN 12 Creatinine 1.05 Glucose 92 Calcium 8.3 L Medications Administered Current Inpatient Medications Acetaminophen (Acetaminophen 325 Mg Tab) 650 mg PO Q4H PRN PRN Reason: Pain or Fever Stop: 07/12/20 19:27 Last Admin: 06/14/20 15:40 Dose: 650 mg Documented by: Aspirin (Aspirin 81 Mg Ectab) 81 mg PO [facility] Stop: 07/13/20 08:59 Last Admin: 06/17/20 10:29 Dose: 81 mg Documented by: Atorvastatin Calcium (Atorvastatin 40 Mg Tab) 80 mg PO DAILY [facility] Stop: 07/13/20 08:59 Last Admin: 06/17/20 13:20 Dose: 80 mg Documented by: Clopidogrel Bisulfate (Clopidogrel Bisulfate 75 Mg Tab) 75 mg PO [facility] Stop: 07/13/20 08:59 Last Admin: 06/17/20 10:29 Dose: 75 mg Documented by: Clotrimazole (Clotrimazole 10 Mg Ivana) 10 mg BUCCAL 5XDQ4H [facility] Stop: 06/23/20 06:59 Last Admin: 06/17/20 14:44 Dose: 10 mg Documented by: Furosemide (Furosemide 20 Mg Tab) [facility] [place]: 07/13/20 10:59 Last Admin: 06/17/20 08:32 Dose: 20 mg Documented by: Gabapentin (Gabapentin 300 Mg Cap) 300 mg PO TID [facility] Stop: 07/12/20 20:59 Last Admin: 06/17/20 13:21 Dose: 300 mg Documented by: Heparin Sodium (Porcine) (Heparin Sod 5,000 Unit/0.5 Ml Vial) 5,000 units SQ Q12 [facility] Stop: 07/16/20 20:59 Last Admin: 06/17/20 10:29 Dose: 5,000 units Documented by: Cefepime HCl 2,000 mg/ Syringe 20 mls @ 5 mls/min IV Q12 [facility]; Protocol Stop: 07/01/20 08:59 Last Admin: 06/17/20 10:28 Dose: 5 mls/min Documented by: Insulin Aspart (Insulin Aspart 100 Units/Ml 3 Ml Pen) 0 units SC ACHS [facility] Stop: 07/12/20 20:59 Last Admin: 06/17/20 13:23 Dose: Not Given Documented by: Insulin Glargine (Insulin Glargine Solostar 100 Units/Ml 3 Ml Pen) 0 units SC HS [facility]; Protocol Stop: 07/12/20 20:59 Last Admin: 06/16/20 21:17 Dose: 20 units Documented by: Lisinopril (Lisinopril 2.5 Mg Tab) 2.5 mg PO QAM [facility] Stop: 07/14/20 08:59 Last Admin: 06/17/20 08:33 Dose: 2.5 mg Documented by: Metoprolol Succinate (Metoprolol Succ 25mg Ext Rel Tab) 25 mg PO BID [facility] Stop: 07/13/20 08:59 Last Admin: 06/17/20 10:31 Dose: Not Given Documented by: Nitroglycerin (Nitroglycerin Sl 0.4 Mg/Tab Tab) 0.4 mg SL UD PRN PRN Reason: Chest Pain Stop: 07/12/20 19:27 Oxycodone HCl (Oxycodone Hcl Ir 5 Mg Tab (Immediate Release)) 10 mg PO Q4H PRN PRN Reason: Pain Stop: 06/26/20 19:27 Last Admin: 06/15/20 17:42 Dose: 10 mg Documented by: Polyethylene Glycol (Polyethylene (Miralax) 17 Gm Pack) 17 gm PO DAILY PRN PRN Reason: Constipation Stop: 07/12/20 19:27
[2020-06-17] MEDS: INSULIN GLARGINE SOLOSTAR 100 UNITS/ML 3 ML PEN SC SCH (20:59)
[2020-06-17] MEDS: ACETAMINOPHEN 325 MG TAB PO PRN (23:44)
[2020-06-18] MEDS: CLOTRIMAZOLE 10 MG TROCHE BUCCAL SCH ×3 (05:48→17:27)
[2020-06-18 08:14] LABS: Basophils # (auto) 0.05 K/uL (0-0.2); Basophils % (auto) 0.6 %; Eosinophils # (auto) 0.22 K/uL (0-0.5); Eosinophils % (auto) 2.4 %; Hemoglobin 10.2 g/dL (14.0-18.0); Immature Granulocytes # (auto) 0.02 K/uL (0.00-0.02); Immature Granulocytes % (auto) 0.2 %; Lymphocytes # (auto) 1.19 K/uL (1.2-3.4); Lymphocytes % (auto) 13.2 %; Mean Corpuscular Hemoglobin 31.7 pg (25-34); Mean Corpuscular Hgb Conc 32.9 g/dL (32-36); Mean Corpuscular Volume 96.3 fL (80-100); Mean Platelet Volume 10.1 fL (7.4-10.4); Monocytes # (auto) 0.79 K/uL (0.11-0.59); Monocytes % (auto) 8.8 %; Neutrophils # (auto) 6.73 K/uL (1.4-6.5); Neutrophils % (auto) 74.8 %; Platelet Count 339 K/uL (130-400); RDW Coefficient of Variation 14.8 % (11.5-14.5); RDW Standard Deviation 51.9 fL (36.4-46.3); Red Blood Count 3.22 M/uL (4.7-6.1)
[2020-06-18 08:46] LABS: BUN Creatinine Ratio 14.1 (10-20); Calcium 9.2 mg/dl (8.5-10.1); Creatinine Clr Calc Pharmacy 65.4 ml/min; Est GFR (African American) 104.2; Est GFR (Non-African American) 89.9; Magnesium 2.2 mg/dl (1.8-2.4)
[2020-06-18] MEDS: CEFEPIME 2,000 MG in SYRINGE 0 ML IV SCH (08:52)
[2020-06-18] MEDS: lisinopril 2.5 MG TAB PO SCH (08:53)
[2020-06-18] MEDS: ATORVASTATIN 40 MG TAB PO SCH (08:53)
[2020-06-18] MEDS: GABAPENTIN 300 MG CAP PO SCH ×2 (08:53→13:12)
[2020-06-18] MEDS: ASPIRIN 81 MG ECTAB PO SCH (08:53)
[2020-06-18] MEDS: METOPROLOL SUCC 25MG EXT REL TAB PO SCH (08:53)
[2020-06-18] MEDS: HEPARIN SOD 5,000 UNIT/0.5 ML VIAL SQ SCH (08:54)
[2020-06-18] MEDS: CLOPIDOGREL BISULFATE 75 MG TAB PO SCH (08:54)
[2020-06-18] MEDS: FUROSEMIDE 20 MG TAB PO SCH (08:54)
[2020-06-18] MEDS: INSULIN ASPART 100 UNITS/ML 3 ML PEN SC SCH ×3 (08:55→17:46)
[2020-06-18] MEDS ORDERED: oxyCODONE HCL IR 5 MG TAB (IMMEDIATE RELEASE) PO STA (14:06)
--- NOTE | 2020-06-18 14:23 | Discharge Summary ---
Date of Service June 18, 2020 Admission HPI Per Admitting Provider 64 YO male followed by Dr. Moses for [facility]. History of coronary artery disease, reduced LVEF, severe peripheral vascular disease, diabetes mellitus type 2, and other problems as outlined. 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 Admitted to [facility] 07/28/19 with persistent / worsening infection. Vascular Surgery was consulted and right AKA was anticipated. Patient suffered a non-STEMI before the surgery was performed. Echo showed segmental wall motion abnormalities with an LVEF of 35%. Patient was felt to be very high risk for cardiac procedures as well as surgical procedures on his RLE, so he was transferred to [facility] 06/01/20. Cardiac cath on 06/02/20 demonstrated severe multivessel disease with 90% stenosis of left main extending into trifurcation of LAD, ramus, and dominant circ, 99% stenosis mid left circ, 80% stenosis proximal ramus, 80% stenosis of proximal LAD, 80% stenosis of mid RCA. It was felt that patients severe coronary disease was inoperable and medical management was recommended. Right AKA was performed on 06/03/20. Closure of right AKA was performed on 06/06/20. He was discharged to home on 06/09/20 with home health services. Family visited him today and found him to be confused. Blood sugar at home was reportedly in the 400's. Family administered 20 units of NovoLog and he was brought to the ED. Lantus dose was decreased during his recent admission at [facility]. Patient reports that he has been taking it as instructed. He has noted polyuria and polydipsia for the past 1-2 days. No fever, chills, sweats. Some postop discomfort at right AKA surgical site; took oxycodone this morning. No chest pain, but somewhat SOB over last 24 hours. Admission Exam Per Admitting Provider VS- as noted Constitutional- no acute distress Eyes- PERRL, anicteric sclerae, conjunctivae normal ENMT- external ear and nose normal; edentulous; oropharynx clear Neck- trachea midline; no thyromegaly Respiratory- no respiratory distress; lungs clear except for few bibasilar rales Cardiovascular- RRR, I/ sys murmur at base, no gallop, no rub; slight JVD; normal capillary refill Chest- no abnormalities Abdomen- normal bowel sounds, soft, nontender, nondistended; no palpable masses or hepatosplenomegaly Musculoskeletal- s/p bilateral AKA's; surgical wound RLE sutured, without erythema or drainage; no cyanosis Skin- warm & dry; normal color; no rashes Neurologic- no facial palsy; no dysarthria or aphasia; motor strength extremities grossly intact Psychiatric- alert, oriented x 3; depressed affect Lymphatic- no cervical adenopathy Principal Diagnosis NSTEMI with critical LM disease not amenable to intervention s/p bilateral amputation above the knee with recent R residual limb post operative state Chronic osteomyelitis of right residual limb Acute on chronic heart failure with reduced ejection fraction and diastolic dysfunction PAD (peripheral artery disease) DMII-uncontrolled chronic narcotic use Discharge Exam CONSTITUTIONAL: WNWD, vitals as above, generally well-appearing EYES: normal conjunctivae, no scleral icterus ENT: external ear and nose normal, MMM RESPIRATORY: clear to auscultation bilaterally, no crackles, rales or wheezes, normal respiratory effort CARDIOVASCULAR: regular rate and rhythm, S1 and 2 heard without murmurs, gallops or rubs, no JVD GASTROINTESTINAL: soft, nontender, nondistended, no guarding MUSCULOSKELETAL: strength 5/5 throughout, bilateral amputee, surgical wound to RLE residual limb after recent revision surgery, head is normocephalic and atraumatic SKIN: warm and dry NEUROLOGIC: CN 2-12 grossly intact, normal cognition, normal speech, no tremor PSYCHIATRIC: alert cooperative and oriented to person, place and time. Discharge Data Allergies Allergy/AdvReac Type Severity Reaction Status Date / Time No Known Allergies Allergy Verified 06/12/20 14:57 Consultations 06/12/20 16:11 ED Decision to Admit Stat 06/12/20 20:45 Consult Cardiology Routine 06/16/20 10:41 Consult Infectious Diseases Routine Ordered Studies [facility], [id number] Magnetic Resonance Report Patient: CANDY BASS Date: 06/12/20#: [id number]: 100 [facility]:[id number]: Date: [address] [place] [address] Zip: [place] [address]Oob: 64Location: 2WSex: MRoom/Bed: [id number] Phy: Lexx Gerardo MDDiagnosis: ELEVATED TROPONIN, HYPERGLYCEMIAPri Phy: CeciliaRachael roberttt MDService Date: 06/15/20Fa Phy:Interpreting Phy: Leif Ramires MDAdmit Phy: Andrew Brown MD Ordering Phy: Aleksander Gerardo MD cc: ~ MRI OF THE RIGHT LOWER EXTREMITY WITHOUT IV CONTRAST CLINICAL HISTORY: Soft tissue infection of the right lower extremity stump. COMPARISON STUDY: Radiographs of the right knee dated 06/12/2020. MRI of the right lower extremity dated 05/28/2020. TECHNIQUE: MRI of the right lower extremity stump is performed utilizing various T1 and T2-weighted sequences in the axial, sagittal, and coronal planes. The examination is severely compromised by motion artifact which degrades diagnostic utility. IV contrast was not administered. FINDINGS: There is postoperative change consistent with above knee amputation. There is no definite marrow edema identified within the distal femoral stump. There is fluid identified around the distal femur at the stump which measures approximately 6 x 6 x 7.5 cm. Soft tissue intramuscular edema is identified around the distal stump. IMPRESSION: 1. Severely motion compromised examination. This degrades diagnostic utility. 2. There is postoperative change from above-knee amputation. There is no clear marrow abnormality identified within the distal femur at the resection margin. 3. There is a pocket of fluid identified around the distal femoral resection margin as detailed above. The sterility of this fluid cannot be assessed by imaging. 4. Soft tissue and intramuscular edema is present in the distal thigh around the resection site. Correlate for evidence of cellulitis/myositis. Dictated: 06/15/2020 12:46 PM Transcribed: 06/15/2020 1:05 PM Laureen [id number] Wes Electronically signed by: Leif Ramires M.D. 06/15/2020 1:32 PM Dictated: 06/15/20 1246Transcribed: 06/15/20 1305 [facility], [id number] CT Scan Report Patient: CANDY BASS Date: 06/12/20#: [id number]: 100 KARSTEN KRISHNANAcct ID:[id number]: [facility]: [facility] Zip: [place] [address]Xba: 64Location: EDSex: MRoom/Bed:Att Phy:Diagnosis: HyperglycemiaPri Phy: Zion Moses MDService Date: 06/12/20Fam Phy:Interpreting Phy: Tigre LucasAdmit Phy: Ordering Phy: Yohannes Gaston MD cc: ~ CT head/brain wo con CLINICAL HISTORY: 64 years-old Male with ams. Acutely altered mental status TECHNIQUE: Multiple axial CT images of the head were obtained without contrast. A dose lowering technique was utilized adhering to the principles of ALARA. CT DOSE: 537.48 mGy.cm COMPARISON: None. FINDINGS: No acute intracranial hemorrhage, midline shift, intracranial mass, hydrocephalus, territorial ischemia or abnormal extra-axial collection. Age- related involutional changes with ex vacuo ventriculomegaly. Patchy white matter hypodensities suggest chronic microvascular ischemic disease. Cerebral vascular calcifications are noted. Remote infarct of the right frontal lobe. The calvarium is intact. Mild mucosal thickening of the ethmoid air cells. Mastoid air cells are clear. Soft tissues are unremarkable. Prior bilateral lens replacement. IMPRESSION: No acute process. ACT 112: Negative or not required by law. The above report was generated using voice recognition software. It may contain grammatical, syntax or spelling errors. Electronically signed by: Jaspreet Lucas M.D. 06/12/2020 3:04 PM Dictated: 06/12/20 150Transcribed: 06/12/20 150 Hospital Course (1) Chronic osteomyelitis: (2) NSTEMI (non-ST elevated myocardial infarction): (3) Leukocytosis: (4) Diabetes mellitus type 2 with complications: (5) Acute on chronic heart failure: (6) Acute metabolic encephalopathy: (7) Status post above-knee amputation of right lower extremity: The patient is a 64-year-old man with a history of bilateral amputation who was recently hospitalized in May 2020 just prior to this admission for suspected osteomyelitis of his right residual limb and ACS. He returned approximately 1 week later with weakness and altered mental status. His blood sugar was found to be 435 and his family had administered him some SQ NovoLog prior to arrival. In the ER a troponin was checked and elevated at 1.3 which was notably lower than prior troponins. He did not report any chest pain or difficulty breathing and his EKG revealed no acute changes. Imaging of his residual limb revealed no evidence of gas or evidence of osteomyelitis. He was readmitted to the hospitalist service and monitored on telemetry. Intravenous furosemide 40 mg was given for evidence of pulmonary congestion and hypervolemia on clinical evaluation. Intravenous vancomycin and ceftriaxone were started empirically out of concern for possible osteomyelitis of the right lower extremity with known recent positive wound culture and white blood cell count of 13,000. Cardiology evaluated the patient and noted that treatment options were limited from a cardiac perspective. Recent cardiac catheterization revealed significant calcified left main disease and the patient was a poor candidate for surgical intervention. He was evaluated previously by CT surgery at [facility] who would also declined further invasive management. There was also an 80% mid RCA lesion noted however, this was a nondominant vessel and treatment would not alter outcomes. Intravenous heparin was continued for 48 hours and he was continued on metoprolol therapy with the addition of lisinopril 2.5 mg daily and Lasix 20 mg daily. He notably has a reduced ejection fraction and was continued on diuretics for acute on chronic heart failure, with improvement as hospitalization progressed. Confusion resolved with treatment. Infectious disease was consulted and recommended 2 weeks of intravenous cefepime until a CRP returns to normal level. Therefore, a CRP will need to be drawn weekly until this time. An ultrasound guided intravenous line was placed in the right upper extremity. At time of discharge he was compensated from a heart failure standpoint with initial symptoms resolved. He was hemodynamically stable and afebrile and mentating at baseline. He was oxygenating well on room air. Medications were reviewed with the patient who verbalized understanding of all new scripts. Nystatin swish and swallow was also described to him and given for the next 10 days. Lastly we reviewed the importance of follow-up with primary care and infectious disease at [facility] regarding his antibiotics. It is possible he may need longer than 2 weeks of intravenous cefepime, and this will be based on the weekly CRP results and the clinical picture closer to that time. He was discharged in stable condition with transfer to [facility]. Total Time Total Time Spent Total Time Spent (In Minutes): 60 Total Time Includes: Examination of the Patient, Discharge Planning, Medication Reconciliation and Communication With Other Providers Discharge Plan Discharge Items Patient Disposition: Transfer Inpatient Rehab Fac Reason For Visit: ELEVATED TROPONIN, HYPERGLYCEMIA Discharge Diagnosis: NSTEMI with critical LM disease not amenable to intervention s/p bilateral amputation above the knee with recent R residual limb post operative state Chronic osteomyelitis of right residual limb Acute on chronic heart failure with reduced ejection fraction and diastolic dysfunction PAD (peripheral artery disease) DMII-uncontrolled chronic narcotic use Condition on Discharge: Good Activity: As commented below Activity Comment: per post op activity restrictions previously outlined Non-emergency contact: Primary Care Provider Call non-emergency contact if: you have any medication questions, your symptoms worsen, your pain is not controlled, your pain is worsening, your pain is unusual for you, your pain is concerning for you, you have a fever, your wound has increased redness, your wound has increased drainage and your wound pain has increased Follow-up/Referrals: Zion Moses MD [Primary Care Provider] - Diet: Carb Consistent or DM2 and Heart Healthy Addtl Attending Provider Instructions: Please continue to follow all post-operative instructions from prior hospitalizations. Please take all medications as instructed on medication list below. Please note that you are being given two weeks of Cefepime intravenous antibiotic, but you may need more. This will be at the discretion of your infectious disease physician at [facility] in [place] who will be monitoring your CRP (non-fasting bloodwork) to see that this is trending down. A CRP should be drawn weekly and sent to your primary care provider Dr. Antonio, and to your infectious disease provider. Close follow-up prior to this two week time point is strongly advised for re- evaluation of your wound and consideration for further antibiotics moving forward. Please follow-up with [facility] regularly to ensure you continue to stay on the optimal medical therapy for your severe cardiac disease. You were prescribed a 10 course of Nystatin swish for thrush (mckenna in the mouth), and this was sent to your pharmacy [facility]. However, if you complete this course while at [facility] rehab, then you do not need to pick this up and repeat another course. If there are any questions regarding this, please reach out to your primary care provider. It was a pleasure taking care of you! Please call if you have any questions or problems. You can reach a [facility] hospitalist on duty at [facility] 24 hours a day by calling [phone]. Take care of yourself. Yumiko Agudelo, DO [facility] Hospitalist Pending Studies at Discharge: No Stand-Alone Forms: My [facility] Skilled Items Patient informed of condition?: Yes DNR: No Discharge Level of Care: Acute rehab Communicable Disease: No Discharge Prognosis: Stable Lines: Peripheral IV Urinary Catheter: No Medications and DC Order Prescriptions: New lisinopril 2.5 mg Tablet 2.5 mg PO QAM Qty: 30 RF: 0 metoprolol succinate 25 mg Tablet Extended Release 24 Hr 25 mg PO BID Qty: 60 RF: 0 furosemide 20 mg Tablet 20 mg PO QAM Qty: 30 RF: 0 oxycodone 5 mg tablet 5 mg PO Q6H PRN (Reason: severe breakthrough pain) Qty: 10 RF: 0 nystatin 100,000 unit/mL suspension 4 ml PO QID Qty: 160 RF: 0 cefepime 2 gram recon soln 2 g IV Q12H Qty: 28 RF: 0 Continued aspirin 81 mg tablet,delayed release (DR/EC) 81 mg PO QAM RF: 0 clopidogrel [Plavix] 75 mg tablet 75 mg PO QAM RF: 0 gabapentin 300 mg capsule 300 mg PO TID RF: 0 Lantus U-100 Insulin 100 unit/mL solution 10 unit subcut QPM RF: 0 insulin aspart U-100 [Novolog U-100 Insulin aspart] 100 unit/mL solution 1 sliding scale dose subcut USEASDIRECTD RF: 0 polyethylene glycol 3350 [Miralax] 17 gram/dose Powder 17 g PO DAILY PRN (Reason: Constipation) RF: 0 atorvastatin 80 mg Tablet 80 mg PO DAILY RF: 0 metoprolol succinate 25 mg Tablet Extended Release 24 Hr 25 mg PO DAILY RF: 0 Discontinued oxycodone 10 mg Tablet 10 mg PO Q4H PRN (Reason: Pain) RF: 0 Discharge Orders: Discharge Order (Routine); Ordered 06/18/20 Ordered By: Yumiko M. Magnus Admission Data Admit Date/Time: 06/12/20 16:33 Attending Provider: Yumiko Agudelo Admit Provider: Andrew Brown Primary Care Provider: Zion Moses Other Providers: [facility] ; Andrew Brown ; David Hauser ; Ford Jacobsen ; Skip Vargas ; Jacob Rooney I. ; Hans Saavedra II ; Nazanin Nick ; Deep Siddiqui ; [facility] Other Interventions: Discharge Summary Assessment (RN) Last Done: 06/18/20 17:48
[2020-06-18] MEDS ORDERED: oxyCODONE HCL IR 5 MG TAB (IMMEDIATE RELEASE) ONE (17:36)
== END 2020-06-18 18:59 | DRG 871 ==
LOC: ED 13:19 → 1E 16:33 → SUATTDRO 16:33 → 1E 18:46 → 2W 06-13 21:47

== ENCOUNTER 2020-06-29 15:55 | Inpatient (IN) ==
[2020-06-29] MEDS ORDERED: SODIUM CHLORIDE 0.9% 1000ML 1,000 ML IV SCH (16:30)
--- NOTE | 2020-06-29 17:03 | XRay Report ---
XR chest 1V portable HISTORY: SEPSIS COMPARISON: Chest 06/06/2020. FINDINGS: The heart remains enlarged. There is mild diffuse interstitial thickening which has improve d. No new focal lung consolidations to suggest pneumonia. No pleural effusions. No pneumothorax. Thor acolumbar spinal fusion hardware is partially visualized. IMPRESSION: 1. Stable mild cardiomegaly. 2. Mild congestive change which has significantly improved in the interval. ACT 112: Negative or not required by law. Electronically signed by: Ladarius Whitney M.D. 06/29/2020 5:01 PM
[2020-06-29 17:29] LABS: Basophils # (auto) 0.05 K/uL (0-0.2); Basophils % (auto) 0.2 %; Eosinophils # (auto) 0.08 K/uL (0-0.5); Eosinophils % (auto) 0.4 %; Hemoglobin 10.8 g/dL (14.0-18.0); Immature Granulocytes # (auto) 0.07 K/uL (0.00-0.02); Immature Granulocytes % (auto) 0.3 %; Lymphocytes # (auto) 2.22 K/uL (1.2-3.4); Lymphocytes % (auto) 10.8 %; Mean Corpuscular Hgb Conc 32.7 g/dL (32-36); Mean Corpuscular Volume 97.6 fL (80-100); Mean Platelet Volume 10.2 fL (7.4-10.4); Monocytes # (auto) 1.65 K/uL (0.11-0.59); Neutrophils # (auto) 16.51 K/uL (1.4-6.5); Neutrophils % (auto) 80.3 %; Platelet Count 328 K/uL (130-400); RDW Coefficient of Variation 16.5 % (11.5-14.5); RDW Standard Deviation 58.2 fL (36.4-46.3); Red Blood Count 3.38 M/uL (4.7-6.1); White Blood Count 20.58 K/uL (4.8-10.8)
[2020-06-29 17:39] LABS: INR 1.2 (0.9-1.1); Partial Thromboplastin Ratio 1.2; Partial Thromboplastin Time 33.6 Seconds (21.0-31.0); Prothrombin Time 12.7 Seconds (9.0-12.0)
[2020-06-29 17:46] LABS: Albumin Level 2.4 gm/dl (3.4-5.0); C Reactive Protein 15.6 mg/dl (0-0.29); Calcium 8.8 mg/dl (8.5-10.1); Creatinine Clr Calc Pharmacy 74.5 ml/min; Est GFR (African American) 83.4; Magnesium 1.8 mg/dl (1.8-2.4); Potassium 4.1 mmol/L (3.5-5.1)
[2020-06-29 17:53] LABS: Albumin Globulin Ratio 0.5 (0.9-2); Globulin 4.5 gm/dl (2.5-4.0); Total Protein 6.9 gm/dl (6.4-8.2); Troponin I 0.047 ng/ml (0-0.045)
[2020-06-29 18:55] LABS: Appearance Urine Clear (Clear); Bacteria Urine Automated Negative (Negative); Bilirubin Urine Negative (Negative); Blood Urine 2+ (Negative); Color Urine Yellow; Glucose Urine UA Negative (Negative); Ketones Urine 1+ (Negative); Leukocyte Esterase Urine Negative (Negative); Nitrite Urine Negative (Negative); Protein Urine 3+ (Negative); Specific Gravity Urine 1.026 (1.000-1.030); Urobilinogen Urine Negative (Negative)
[2020-06-29] MEDS ORDERED: OPTIRAY 320 100ml IV ONE (20:22)
[2020-06-29] MEDS ORDERED: DAPTOmycin 475 MG in SYRINGE 0 ML IV ONE (20:35)
[2020-06-29] MEDS ORDERED: PIPERACILLIN/TAZOBACTAM 4.5 GM/120 ML BAG IV ONE (20:35)
[2020-06-29] MEDS ORDERED: SODIUM CHLORIDE 0.9% 1000ML 500 ML IV ONE (20:35)
[2020-06-29] MEDS ORDERED: PIPERACILL/TAZOBAC CONSULT ACTIVE PRN (20:35)
--- NOTE | 2020-06-29 21:46 | Emergency Department Note ---
Impression & Plan SIRS (systemic inflammatory response syndrome), Leukocytosis, Elevated C- reactive protein, Postoperative hematoma, Elevated troponin ED Provider Note INFORMANT: Patient ED PROVIDER(S): Andrew Ford MD CHIEF COMPLAINT: Elevated white blood cell count PLAN: Disposition: Admitted Condition: Good MEDICAL DECISION MAKING: Patient presented with concerns for increasing white blood cell count despite receiving IV antibiotics. Blood work was obtained. Cultures were done. The patient has a significant leukocytosis of 20,000. His mild anemia. His ESR is markedly elevated at 74 as is his CRP at 15. Patient was found to have a mild elevation of his troponin as well. X-ray imaging of the chest did not reveal any obvious infiltrate. The patient's right leg did not reveal obvious findings of infection on physical examination other than some mild swelling and tenderness. He underwent CT imaging and there was a hematoma present. No obvious abscess was noted. The patient did have some mildly low blood pressure. He was given saline hydration. The patient was given broad-spectrum antibiotic coverage with daptomycin and Zosyn. Consultation was placed with [facility] vascular surgery. I discussed the case with Dr. Zuleta. In light of no obvious erythema or cellulitis of the wound and no abscess on CT imaging he recommended admission here for medical work-up regarding the leukocytosis and SIRS criteria. I discussed the case with the [facility] hospitalist, Dr. dc. The patient was evaluated in the ER for further management. Triage Nursing notes reviewed and agree them. Vital Signs: reviewed and remarkable for no significant abnormalities Differential diagnosis: Etiologies such as cellulitis, abscess, MRSA infection, necrotizing fasciitis, DVT, endocarditis, as well as others were entertained. Diagnostics interpreted by me: ECG: Twelve-lead ECG reveals a normal sinus rhythm at 85 bpm. There is poor R wave progression. Inferolateral T wave inversion. When compared to 1128 there is no significant change. Cardiac Monitoring:Cardiac monitoring ordered by me: The patient was placed on continuous cardiac monitoring and observed. It revealed a normal sinus rhythm at 80 beats per minute without ectopy or evidence of dysrhythmia. Imaging studies: CT imaging of the leg reveals above the knee amputation present. Complex fluid around the stump favored to represent hematoma. No evidence of acute osteomyelitis. No obvious abscess per radiology. Chest x-ray reveals some mild stable CHF findings. No infiltrate. Consultation(s): [facility] vascular surgery, Dr. Merlyn Holley hospitalist at [facility] HPI: The patient is a 64 year old male who [facility] secondary to an increasing white blood cell count and concerns about infection. The patient is approximately 2 weeks status post revision of AKA and postoperative infection. He is reportedly receiving IV cefepime. The patient had blood work obtained and his white blood cell count was reportedly increasing. The rehab physician was concerned and directed the patient to the emergency department for a work-up and further evaluation. The patient notes some generalized weakness but overall states he feels fairly well. He denied feeling any new pain in the surgical site. He denies any dressing wetness or drainage. Pt denies LOC, headache, fevers, chills, diaphoresis, visual changes, neck pain, chest pain, breathing difficulties, nausea, vomiting, abdominal pain, back pain, melena, hematochezia, urinary symptoms, numbness, weakness, lymphadenopathy, rash, or other complaints. ROS: See above HPI for pertinent positives & negatives. A total of 10 systems reviewed and were otherwise negative. PAST MEDICAL HISTORY:See Below, CAD, osteomyelitis PAST SURGICAL HISTORY:See Below, FAMILY HISTORY:See Below SOCIAL HISTORY:See Below, former smoker HOME MEDICATIONS:See Below ALLERGIES:See Below VITALS:See Below PHYSICAL EXAMINATION: GENERAL: Awake, alert, tired appearing, in no distress HENT: Normocephalic, atraumatic. Oropharynx unremarkable. EYES: Normal conjunctiva. Sclera non-icteric. NECK: Inspection normal. Non-tender. Supple. No nuchal rigidity. FROM. No masses. RESPIRATORY: Clear to auscultation. No wheezes. No rales. Normal respiratory effort. CARDIAC: Normal rate. Normal rhythm. No murmurs. No rubs. Extremities warm and well perfused. Pulses equal. No JVD. GI: Soft, non-distended. No tenderness to palpation. No rebound or guarding. No masses. RECTAL: Deferred. MUSCULOSKELETAL: Atraumatic. Chest examination reveals no tenderness. The back is symmetrical on inspection without obvious abnormality. There is no CVA tenderness to palpation. No joint edema. LOWER EXTREMITIES: Bilateral amputations are present. The left stump is normal in appearance. The right stump surgical site appears to be healing well. No drainage. Sutures in place. No obvious surrounding cellulitis. Mildly tender to palpation and appears minimally swollen. NEURO: Normal sensorium. No sensory or motor deficits noted. SKIN: No rash or jaundice noted. CRITICAL CARE: I have personally spent greater than 45 minutes of critical care time in the direct management of this patient. This includes bedside care, interpretation of diagnostic studies, and testing, discussion with consultants, patient,, and other required patient management activities. These minutes are in excess of all separately billable procedures. Andrew Ford MD Past Med/Surg History Medical History CAD in [place] artery Carotid artery disease S/P right CEA by Dr. Sheppard on 09/14/17. L Occluded carotid artery Cerebrovascular disease CHF (congestive heart failure) Echo 05/30/20 LVEF 35%. 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 Cath [facility] 06/02/20- severe diffuse multi-vessel disease. Medical management recommended Diabetes mellitus type 2 with complications Diabetic neuropathy Diabetic peripheral angiopathy Dyslipidemia Emphysema of lung GERD (gastroesophageal reflux disease) History of CVA (cerebrovascular accident) H/O right basal ganglia stroke in 2011. PAD (peripheral artery disease) Peripheral vascular disease Right BKA infection Tobacco dependence Surgical History History of angioplasty of peripheral vessel L LEG left popliteal artery angioplasty and stent as left AT/peroneal/TP trunk angioplasty on 05/10/[address] Sheppard left AKA on 12/19/17 09/27/17 for angioplasty/stent of the left SFA, but noted to have a BK- popliteal occlusion (would need a left fem=>AT bypass). left common femoral endarterectomy with vein patch angioplasty and common fem oral artery => anterior tibial artery bypass using non-reversed left great saphenous vein 10/20/2017. R LEG RSFA stent and, angioplasty of PT/peroneal artery 06/06/[address] Mosqueda S/P right TOMMIE/TP-trunk/peroneral/PT angioplasty by Dr. Mosqueda on 10/25/18. 02/2019 again prompted additional intervention He underwent bilateral common & external iliac artery stents (one 7 x 80 mm Everflex stent on each side) and right SFA/pop/TP-trunk angioplasty by Dr. Sheppard 04/03/19. 05/09/20 He underwent balloon angioplasty of right SFA/popliteal/TP-trunk/peroneral arteries and open amputation of the R 5th toe by Dr. Sheppard on 08/10/19. History of femoropopliteal bypass History of right below knee amputation 11/15/[address] Sheppard History of spinal fusion "05/[address] Reedre" Hx of AKA (above knee amputation) L 12/2018 Status post above-knee amputation of right lower extremity [facility] 06/03/20 Status post cardiac catheterization [facility] 06/02/20- severe diffuse multi-vessel disease; medical management recommended Family History Other Family history non-contributory Social History Smoking Status: Current every day smoker Tobacco Type: Cigarettes packs per day: 1; Years Smoked: 50; Cigarettes Per Day: 20; Second Hand Exposure: No; Hx Alcohol Use: Yes Alcohol type: beer Alcohol Intake Frequency: 2-4 x/Month Hx Substance Use: No Preferred Language: Burkinan Communication Ability: Effective Former Hand Required: No Beliefs That Will Affect Care: None marital status: Current Living Situation: Significant Other Current Living Situation Comment: [facility] current occupational status: retired How many Children do You have: 1 How many Children do You have Comment: LOCAL SON THAT IS ABLE TO HELP. ALSO HAS SISTER WHO IS ABLE TO HELP NEEDED. Feels Safe at Home: Yes during the past year weight has: increased > 10 lbs Assistive Devices: None Allergies Allergies Allergy/AdvReac Type Severity Reaction Status Date / Time No Known Allergies Allergy Verified 06/29/20 16:55 Home Meds Home Medications Medication Instructions Recorded Confirmed aspirin 81 mg tablet,delayed 81 mg PO DAILY 04/30/20 06/29/20 release clopidogrel 75 mg tablet 75 mg PO DAILY 04/30/20 06/29/20 insulin glargine 100 unit/mL 17 unit SUBCUT QPM ml 04/30/20 06/29/20 subcutaneous solution polyethylene glycol 3350 [Miralax] 17 g PO QDL 05/28/20 06/29/20 atorvastatin 80 mg PO DAILY 06/12/20 06/29/20 acetaminophen 650 mg PO Q4H PRN 06/29/20 06/29/20 ascorbic acid (vitamin C) 500 mg PO BIDM 06/29/20 06/29/20 cholecalciferol (vitamin D3) 2,000 unit PO DAILY 06/29/20 06/29/20 [Vitamin D3] docusate sodium 100 mg PO TID 06/29/20 06/29/20 famotidine 20 mg PO DAILY 06/29/20 06/29/20 furosemide 20 mg PO DAILY 06/29/20 06/29/20 heparin (porcine) 5,000 unit SUBCUT Q12H 06/29/20 06/29/20 insulin regular human [Humulin R 1 sliding scale dose SUBCUT 06/29/20 06/29/20 Regular U-100 Insuln] USEASDIRECTD lisinopril 2.5 mg PO DAILY 06/29/20 06/29/20 metoprolol succinate 25 mg PO Q12H 06/29/20 06/29/20 oxycodone See Rx Instructions .ROUTE 06/29/20 06/29/20 .COMPLEX PRN sennosides-docusate sodium 1 tab PO QDL PRN 06/29/20 06/29/20 [Senokot-S] [id number]-[id number]-dyq-carbohyd 0 ea PO QID 06/29/20 06/29/20 [DripDrop] zinc sulfate 220 mg PO DAILY 06/29/20 06/29/20 Previous Rx's Medication Instructions Recorded nystatin 4 ml PO QID #160 ml 06/18/20 cefepime 2 g IV Q12H #28 ea 06/19/20 Results & Data (ED) Vital Signs Vital Signs - 24 hr 06/29/20 16:10 06/29/20 16:15 06/29/20 16:21 Temperature 37.1 C Temperature Source Oral Pulse Rate 84 86 Pulse Rate [Finger] Pulse Rate from SpO2 Sensor 86 Respiratory Rate 18 24 Respiratory Effort / Characteristics Non-Labored Spontaneous Blood Pressure 127/59 L Blood Pressure [Right Arm] Blood Pressure Mean 81 Blood Pressure Mean [Right Arm] Pulse Oximetry 98 98 Oxygen Delivery Method Room Air Room Air Room Air Sepsis New/Unexplained Change in Mental Status No Sepsis Action Taken by Nursing No Action Required 06/29/20 16:26 06/29/20 16:30 06/29/20 16:45 Temperature Temperature Source Pulse Rate 86 Pulse Rate [Finger] Pulse Rate from SpO2 Sensor 85 Respiratory Rate 24 26 H Respiratory Effort / Characteristics Blood Pressure 111/52 L Blood Pressure [Right Arm] Blood Pressure Mean 76 Blood Pressure Mean [Right Arm] Pulse Oximetry 96 96 Oxygen Delivery Method Room Air Room Air Room Air Sepsis New/Unexplained Change in Mental Status Sepsis Action Taken by Nursing 06/29/20 16:51 06/29/20 17:00 06/29/20 17:21 Temperature Temperature Source Pulse Rate Pulse Rate [Finger] Pulse Rate from SpO2 Sensor Respiratory Rate 27 H Respiratory Effort / Characteristics Non-Labored Spontaneous Non-Labored Spontaneous Blood Pressure 121/69 Blood Pressure [Right Arm] Blood Pressure Mean 94 Blood Pressure Mean [Right Arm] Pulse Oximetry 100 Oxygen Delivery Method Room Air Room Air Room Air Sepsis New/Unexplained Change in Mental Status Sepsis Action Taken by Nursing 06/29/20 17:30 06/29/20 17:45 06/29/20 18:00 Temperature Temperature Source Pulse Rate 117 H Pulse Rate [Finger] Pulse Rate from SpO2 Sensor 88 Respiratory Rate 28 H 26 H 19 Respiratory Effort / Characteristics Non-Labored Spontaneous Non-Labored Spontaneous Blood Pressure 110/64 Blood Pressure [Right Arm] Blood Pressure Mean 72 Blood Pressure Mean [Right Arm] Pulse Oximetry 99 Oxygen Delivery Method Room Air Room Air Sepsis New/Unexplained Change in Mental Status Sepsis Action Taken by Nursing 06/29/20 18:15 06/29/20 18:30 06/29/20 18:45 Temperature Temperature Source Pulse Rate 90 Pulse Rate [Finger] Pulse Rate from SpO2 Sensor Respiratory Rate 18 16 15 Respiratory Effort / Characteristics Non-Labored Spontaneous Blood Pressure Blood Pressure [Right Arm] Blood Pressure Mean Blood Pressure Mean [Right Arm] Pulse Oximetry Oxygen Delivery Method Room Air Room Air Room Air Sepsis New/Unexplained Change in Mental Status Sepsis Action Taken by Nursing 06/29/20 19:00 06/29/20 19:15 06/29/20 19:30 Temperature Temperature Source Pulse Rate 80 Pulse Rate [Finger] Pulse Rate from SpO2 Sensor Respiratory Rate 21 14 21 Respiratory Effort / Characteristics Non-Labored Spontaneous Non-Labored Spontaneous Blood Pressure Blood Pressure [Right Arm] Blood Pressure Mean Blood Pressure Mean [Right Arm] Pulse Oximetry Oxygen Delivery Method Room Air Room Air Room Air Sepsis New/Unexplained Change in Mental Status Sepsis Action Taken by Nursing 06/29/20 19:53 06/29/20 20:24 06/29/20 20:30 Temperature Temperature Source Pulse Rate Pulse Rate [Finger] Pulse Rate from SpO2 Sensor 102 H Respiratory Rate 23 Respiratory Effort / Characteristics Non-Labored Spontaneous Blood Pressure 93/61 L Blood Pressure [Right Arm] Blood Pressure Mean 62 Blood Pressure Mean [Right Arm] Pulse Oximetry 97 Oxygen Delivery Method Room Air Room Air Room Air Sepsis New/Unexplained Change in Mental Status Sepsis Action Taken by Nursing 06/29/20 20:58 06/29/20 21:00 06/29/20 21:16 Temperature Temperature Source Pulse Rate Pulse Rate [Finger] 88 Pulse Rate from SpO2 Sensor 92 H 95 H Respiratory Rate 18 Respiratory Effort / Characteristics Non-Labored Spontaneous Blood Pressure Blood Pressure [Right Arm] 115/60 Blood Pressure Mean Blood Pressure Mean [Right Arm] 78 Pulse Oximetry 97 96 98 Oxygen Delivery Method Room Air Room Air Room Air Sepsis New/Unexplained Change in Mental Status Sepsis Action Taken by Nursing 06/29/20 21:30 06/29/20 21:32 06/29/20 21:45 Temperature Temperature Source Pulse Rate Pulse Rate [Finger] Pulse Rate from SpO2 Sensor 100 H 99 H 87 Respiratory Rate Respiratory Effort / Characteristics Non-Labored Spontaneous Blood Pressure 95/57 L Blood Pressure [Right Arm] Blood Pressure Mean 74 Blood Pressure Mean [Right Arm] Pulse Oximetry 99 97 97 Oxygen Delivery Method Room Air Room Air Room Air Sepsis New/Unexplained Change in Mental Status Sepsis Action Taken by Nursing 06/29/20 22:00 06/29/20 22:30 06/29/20 22:31 Temperature Temperature Source Pulse Rate 86 Pulse Rate [Finger] Pulse Rate from SpO2 Sensor 87 Respiratory Rate Respiratory Effort / Characteristics Non-Labored Spontaneous Non-Labored Spontaneous Blood Pressure 101/55 L 92/66 L Blood Pressure [Right Arm] Blood Pressure Mean 70 68 Blood Pressure Mean [Right Arm] Pulse Oximetry 97 Oxygen Delivery Method Room Air Room Air Room Air Sepsis New/Unexplained Change in Mental Status Sepsis Action Taken by Nursing 06/29/20 23:10 06/30/20 00:22 Temperature Temperature Source Pulse Rate Pulse Rate [Finger] 79 90 Pulse Rate from SpO2 Sensor Respiratory Rate 20 20 Respiratory Effort / Characteristics Blood Pressure Blood Pressure [Right Arm] 123/69 116/62 Blood Pressure Mean Blood Pressure Mean [Right Arm] 87 80 Pulse Oximetry 96 98 Oxygen Delivery Method Room Air Sepsis New/Unexplained Change in Mental Status Sepsis Action Taken by Nursing Laboratory Data Result diagrams: 06/29/20 17:11 06/29/20 17:11 Lab Results 06/29/20 06/29/20 06/29/20 Range/Units 17:11 17:11 17:11 WBC (4.8-10.8) K/uL RBC (4.7-6.1) M/uL Hgb (14.0-18.0) g/dL Hct (42-52) % MCV (80-100) fL MCH (25-34) pg MCHC (32-36) g/dL RDW Std Deviation (36.4-46.3) fL RDW Coeff of Martin (11.5-14.5) % Plt Count (130-400) K/uL MPV (7.4-10.4) fL Immature Gran % (Auto) % Neut % (Auto) % Lymph % (Auto) % [place] % (Auto) % Eos % (Auto) % Baso % (Auto) % Neut # (Auto) (1.4-6.5) K/uL Lymph # (Auto) (1.2-3.4) K/uL [place] # (Auto) (0.11-0.59) K/uL Eos # (Auto) (0-0.5) K/uL Baso # (Auto) (0-0.2) K/uL Immature Gran # (Auto) (0.00-0.02) K/uL ESR 74 H (0-14) mm/hr PT (9.0-12.0) Seconds INR (0.9-1.1) APTT (21.0-31.0) Seconds PTT Ratio Sodium 138 (136-145) mmol/L Potassium 4.1 (3.5-5.1) mmol/L Chloride 107 (98-107) mmol/L Carbon Dioxide 26 (21-32) mmol/L Anion Gap 5.0 (3-11) BUN 27 H (7-18) mg/dl Creatinine 1.07 (0.6-1.4) mg/dl Est Cr Clr Drug Dosing 74.5 ml/min Est GFR ( Amer) 83.4 Est GFR (Non-Af Amer) 72.0 BUN/Creatinine Ratio 25.0 H (10-20) Glucose 104 H (70-99) mg/dl Lactate (0.4-2.0) mmol/L Calcium 8.8 (8.5-10.1) mg/dl Magnesium 1.8 (1.8-2.4) mg/dl Total Bilirubin 1.0 (0.2-1) mg/dl AST 15 (15-37) U/L ALT 10 L (12-78) U/L Alkaline Phosphatase 116 (45-117) U/L Troponin I 0.047 H* (0-0.045) ng/ml C-Reactive Protein 15.60 H (0-0.29) mg/dl Total Protein 6.9 (6.4-8.2) gm/dl Albumin 2.4 L (3.4-5.0) gm/dl Globulin 4.5 H (2.5-4.0) gm/dl Albumin/Globulin Ratio 0.5 L (0.9-2) Procalcitonin 4.75 H (0-0.5) ng/ml Urine Color Urine Appearance (Clear) Urine pH (4.5-7.5) Ur Specific [place] (1.000-1.030) Urine Protein (Negative) Urine Glucose (UA) (Negative) Urine Ketones (Negative) Urine Blood (Negative) Urine Nitrite (Negative) Urine Bilirubin (Negative) Urine Urobilinogen (Negative) Ur Leukocyte Esterase (Negative) Urine WBC (Auto) (0-5) /hpf Urine RBC (Auto) (0-4) /hpf U Hyaline Cast (Auto) (0-5) /lpf U Epithel Cells (Auto) (0-5) /lpf Urine Bacteria (Auto) (Negative) COVID-19 Eval Order SARS-CoV-2, RNA, NAAT (NEGATIVE) 06/29/20 06/29/20 06/29/20 Range/Units 17:11 17:11 17:11 WBC 20.58 H (4.8-10.8) K/uL RBC 3.38 L (4.7-6.1) M/uL Hgb 10.8 L (14.0-18.0) g/dL Hct 33.0 L (42-52) % MCV 97.6 (80-100) fL MCH 32.0 (25-34) pg MCHC 32.7 (32-36) g/dL RDW Std Deviation 58.2 H (36.4-46.3) fL RDW Coeff of Martin 16.5 H (11.5-14.5) % Plt Count 328 (130-400) K/uL MPV 10.2 (7.4-10.4) fL Immature Gran % (Auto) 0.3 % Neut % (Auto) 80.3 % Lymph % (Auto) 10.8 % [place] % (Auto) 8.0 % Eos % (Auto) 0.4 % Baso % (Auto) 0.2 % Neut # (Auto) 16.51 H (1.4-6.5) K/uL Lymph # (Auto) 2.22 (1.2-3.4) K/uL [place] # (Auto) 1.65 H (0.11-0.59) K/uL Eos # (Auto) 0.08 (0-0.5) K/uL Baso # (Auto) 0.05 (0-0.2) K/uL Immature Gran # (Auto) 0.07 H (0.00-0.02) K/uL ESR (0-14) mm/hr PT 12.7 H (9.0-12.0) Seconds INR 1.2 H (0.9-1.1) APTT 33.6 H (21.0-31.0) Seconds PTT Ratio 1.2 Sodium (136-145) mmol/L Potassium (3.5-5.1) mmol/L Chloride (98-107) mmol/L Carbon Dioxide (21-32) mmol/L Anion Gap (3-11) BUN (7-18) mg/dl Creatinine (0.6-1.4) mg/dl Est Cr Clr Drug Dosing ml/min Est GFR ( Amer) Est GFR (Non-Af Amer) BUN/Creatinine Ratio (10-20) Glucose (70-99) mg/dl Lactate 1.3 (0.4-2.0) mmol/L Calcium (8.5-10.1) mg/dl Magnesium (1.8-2.4) mg/dl Total Bilirubin (0.2-1) mg/dl AST (15-37) U/L ALT (12-78) U/L Alkaline Phosphatase (45-117) U/L Troponin I (0-0.045) ng/ml C-Reactive Protein (0-0.29) mg/dl Total Protein (6.4-8.2) gm/dl Albumin (3.4-5.0) gm/dl Globulin (2.5-4.0) gm/dl Albumin/Globulin Ratio (0.9-2) Procalcitonin (0-0.5) ng/ml Urine Color Urine Appearance (Clear) Urine pH (4.5-7.5) Ur Specific [place] (1.000-1.030) Urine Protein (Negative) Urine Glucose (UA) (Negative) Urine Ketones (Negative) Urine Blood (Negative) Urine Nitrite (Negative) Urine Bilirubin (Negative) Urine Urobilinogen (Negative) Ur Leukocyte Esterase (Negative) Urine WBC (Auto) (0-5) /hpf Urine RBC (Auto) (0-4) /hpf U Hyaline Cast (Auto) (0-5) /lpf U Epithel Cells (Auto) (0-5) /lpf Urine Bacteria (Auto) (Negative) COVID-19 Eval Order SARS-CoV-2, RNA, NAAT (NEGATIVE) 06/29/20 06/29/20 06/29/20 Range/Units 18:18 23:17 23:17 WBC (4.8-10.8) K/uL RBC (4.7-6.1) M/uL Hgb (14.0-18.0) g/dL Hct (42-52) % MCV (80-100) fL MCH (25-34) pg MCHC (32-36) g/dL RDW Std Deviation (36.4-46.3) fL RDW Coeff of Martin (11.5-14.5) % Plt Count (130-400) K/uL MPV (7.4-10.4) fL Immature Gran % (Auto) % Neut % (Auto) % Lymph % (Auto) % [place] % (Auto) % Eos % (Auto) % Baso % (Auto) % Neut # (Auto) (1.4-6.5) K/uL Lymph # (Auto) (1.2-3.4) K/uL [place] # (Auto) (0.11-0.59) K/uL Eos # (Auto) (0-0.5) K/uL Baso # (Auto) (0-0.2) K/uL Immature Gran # (Auto) (0.00-0.02) K/uL ESR (0-14) mm/hr PT (9.0-12.0) Seconds INR (0.9-1.1) APTT (21.0-31.0) Seconds PTT Ratio Sodium (136-145) mmol/L Potassium (3.5-5.1) mmol/L Chloride (98-107) mmol/L Carbon Dioxide (21-32) mmol/L Anion Gap (3-11) BUN (7-18) mg/dl Creatinine (0.6-1.4) mg/dl Est Cr Clr Drug Dosing ml/min Est GFR ( Amer) Est GFR (Non-Af Amer) BUN/Creatinine Ratio (10-20) Glucose (70-99) mg/dl Lactate (0.4-2.0) mmol/L Calcium (8.5-10.1) mg/dl Magnesium (1.8-2.4) mg/dl Total Bilirubin (0.2-1) mg/dl AST (15-37) U/L ALT (12-78) U/L Alkaline Phosphatase (45-117) U/L Troponin I (0-0.045) ng/ml C-Reactive Protein (0-0.29) mg/dl Total Protein (6.4-8.2) gm/dl Albumin (3.4-5.0) gm/dl Globulin (2.5-4.0) gm/dl Albumin/Globulin Ratio (0.9-2) Procalcitonin (0-0.5) ng/ml Urine Color Yellow Urine Appearance Clear (Clear) Urine pH 5.0 (4.5-7.5) Ur Specific [place] 1.026 (1.000-1.030) Urine Protein 3+ H (Negative) Urine Glucose (UA) Negative (Negative) Urine Ketones 1+ H (Negative) Urine Blood 2+ H (Negative) Urine Nitrite Negative (Negative) Urine Bilirubin Negative (Negative) Urine Urobilinogen Negative (Negative) Ur Leukocyte Esterase Negative (Negative) Urine WBC (Auto) 1-5 (0-5) /hpf Urine RBC (Auto) 5-10 H (0-4) /hpf U Hyaline Cast (Auto) 1-5 (0-5) /lpf U Epithel Cells (Auto) 10-20 H (0-5) /lpf Urine Bacteria (Auto) Negative (Negative) COVID-19 Eval Order Covid19 IDNow [facility] SARS-CoV-2, RNA, NAAT NEGATIVE (NEGATIVE) Administered Medications Discontinued Medications Sodium Chloride (Nss 1000ml) 1,000 mls @ 999 mls/hr IV .[id number] VANDANA Stop: 06/29/20 17:30 Last Infusion: 06/29/20 18:19 Dose: 0 mls/hr Documented by: [id number] Admin: 06/29/20 17:18 Dose: 999 mls/hr Documented by: [id number] Sodium Chloride (Nss 1000ml) 500 mls @ 999 mls/hr IV .Q31M ONE Stop: 06/29/20 21:05 Last Infusion: 06/29/20 21:26 Dose: 0 mls/hr Documented by: [id number] Admin: 06/29/20 20:55 Dose: 999 mls/hr Documented by: [id number] Daptomycin 475 mg/ Syringe 9.5 mls @ 4.75 mls/min IV NOW ONE; Protocol Stop: 06/29/20 20:36 Last Admin: 06/29/20 21:43 Dose: 4.75 mls/min Documented by: [id number] Piperacillin Sod/Tazobactam Sod (Zosyn) 4.5 gm in 120 mls @ 240 mls/hr IV NOW ONE Stop: 06/29/20 21:04 Last Infusion: 06/29/20 21:26 Dose: 0 mls/hr Documented by: [id number] Admin: 06/29/20 20:56 Dose: 240 mls/hr Documented by: [id number] Ioversol (Ioversol 100ml) 93 ml IV ONCE ONE Stop: 06/29/20 20:23 Last Admin: 06/29/20 20:23 Dose: 93 ml Documented by: [id number] Discharge Plan Visit Data Chief Complaint: Referred by Doctor Stated Complaint: ABNORMAL LAB, LOW GRADE FEVER ED Provider: Andrew Ford Discharge Problem: SIRS (systemic inflammatory response syndrome), Leukocytosis, Elevated C- reactive protein, Postoperative hematoma, Elevated troponin Forms Stand Alone Forms: [facility] Prescriptions Prescriptions: No Action aspirin 81 mg tablet,delayed release (DR/EC) 81 mg PO DAILY RF: 0 clopidogrel [Plavix] 75 mg tablet 75 mg PO DAILY RF: 0 Lantus U-100 Insulin 100 unit/mL solution 17 unit subcut QPM RF: 0 polyethylene glycol 3350 [Miralax] 17 gram/dose Powder 17 g PO QDL RF: 0 atorvastatin 80 mg Tablet 80 mg PO DAILY RF: 0 nystatin 100,000 unit/mL suspension 4 ml PO QID Qty: 160 RF: 0 cefepime 2 gram recon soln 2 g IV Q12H Qty: 28 RF: 0 famotidine 20 mg Tablet 20 mg PO DAILY RF: 0 ascorbic acid (vitamin C) 500 mg Tablet 500 mg PO BIDM RF: 0 Humulin R Regular U-100 Insuln 100 unit/mL Solution 1 sliding scale dose SUBCUT USEASDIRECTD RF: 0 cholecalciferol (vitamin D3) [Vitamin D3] 50 mcg (2,000 unit) Capsule 2,000 unit PO DAILY RF: 0 acetaminophen 325 mg Tablet 650 mg PO Q4H PRN (Reason: Pain) RF: 0 sennosides-docusate sodium [Senokot-S] 8.6-50 mg Tablet 1 tab PO QDL PRN (Reason: Constipation) RF: 0 docusate sodium 100 mg Capsule 100 mg PO TID RF: 0 zinc sulfate 220 mg Capsule 220 mg PO DAILY RF: 0 furosemide 20 mg tablet 20 mg PO DAILY RF: 0 metoprolol succinate 25 mg tablet extended release 24 hr 25 mg PO Q12H RF: 0 lisinopril 2.5 mg tablet 2.5 mg PO DAILY RF: 0 oxycodone 5 mg tablet See Rx Instructions .ROUTE .COMPLEX PRN (Reason: Pain) RF: 0 heparin (porcine) 5,000 unit/mL Syringe 5,000 unit SUBCUT Q12H RF: 0 DripDrop 305-175-70 mg Powder In Packet 0 ea PO QID RF: 0
[2020-06-30] MEDS ORDERED: NITROGLYCERIN SL 0.4 MG/TAB TAB SL PRN (02:18)
[2020-06-30] MEDS ORDERED: VANCOMYCIN HCL 1,000 MG in SODIUM CHLORIDE 0.9% 250 ML IV SCH (02:18)
[2020-06-30] MEDS ORDERED: ACETAMINOPHEN 325 MG TAB PO PRN (02:18)
[2020-06-30] MEDS ORDERED: VANCOMYCIN CONSULT ACTIVE PRN (02:18)
[2020-06-30] MEDS ORDERED: POLYETHYLENE (MIRALAX) 17 GM PACK PO PRN (02:18)
[2020-06-30] MEDS ORDERED: DOCUSATE SODIUM/SENNA 50/8.6MG TAB PO PRN (02:18)
[2020-06-30] MEDS ORDERED: GLUCAGON FOR INJ 1 MG VIAL SQ PRN (03:15)
[2020-06-30] MEDS ORDERED: GLUCOSE 40% GEL 15 GM TUBE PO PRN (03:15)
[2020-06-30] MEDS ORDERED: CARBOHYDRATES FOR HYPOGLYCEMIA PO PRN (03:15)
[2020-06-30] MEDS ORDERED: DEXTROSE 50% 50 ML SYRINGE IV PRN (03:15)
[2020-06-30] MEDS ORDERED: GLUCOSE 10 TABS/TUBE PO PRN (03:15)
[2020-06-30] MEDS: PIPERACILLIN/TAZOBACTAM 3.375 GM in DEXTROSE 5% 100 ML IV SCH ×3 (03:30→19:30)
[2020-06-30] MEDS ORDERED: VANCOMYCIN HCL 1,750 MG in SODIUM CHLORIDE 0.9% 500 ML IV ONE (04:00)
[2020-06-30 05:54] LABS: Basophils # (auto) 0.04 K/uL (0-0.2); Basophils % (auto) 0.2 %; Eosinophils # (auto) 0.05 K/uL (0-0.5); Eosinophils % (auto) 0.3 %; Immature Granulocytes # (auto) 0.06 K/uL (0.00-0.02); Immature Granulocytes % (auto) 0.4 %; Lymphocytes # (auto) 1.68 K/uL (1.2-3.4); Lymphocytes % (auto) 10.3 %; Mean Corpuscular Hemoglobin 32.4 pg (25-34); Mean Corpuscular Hgb Conc 33.3 g/dL (32-36); Mean Corpuscular Volume 97.1 fL (80-100); Mean Platelet Volume 10.1 fL (7.4-10.4); Monocytes # (auto) 1.34 K/uL (0.11-0.59); Monocytes % (auto) 8.2 %; Neutrophils # (auto) 13.21 K/uL (1.4-6.5); Neutrophils % (auto) 80.6 %; Platelet Count 274 K/uL (130-400); RDW Coefficient of Variation 16.3 % (11.5-14.5); Red Blood Count 3.09 M/uL (4.7-6.1); White Blood Count 16.38 K/uL (4.8-10.8)
[2020-06-30 06:29] LABS: BUN Creatinine Ratio 27.3 (10-20); Calcium 8.6 mg/dl (8.5-10.1); Creatinine Clr Calc Pharmacy 86.7 ml/min; Est GFR (African American) 100.1; Est GFR (Non-African American) 86.4; Magnesium 2.1 mg/dl (1.8-2.4); Potassium 3.8 mmol/L (3.5-5.1)
[2020-06-30 06:45] LABS: Troponin I 0.251 ng/ml (0-0.045)
[2020-06-30] MEDS: INSULIN ASPART 100 UNITS/ML 3 ML PEN SC SCH ×4 (08:53→22:19)
[2020-06-30] MEDS: FAMOTIDINE 20 MG TAB PO SCH (08:54)
[2020-06-30] MEDS: FUROSEMIDE 20 MG TAB PO SCH (08:54)
[2020-06-30] MEDS: ASPIRIN 81 MG ECTAB PO SCH (08:54)
[2020-06-30] MEDS: DOCUSATE SODIUM 100 MG CAP PO SCH ×3 (08:54→22:20)
[2020-06-30] MEDS: ATORVASTATIN 40 MG TAB PO SCH (08:54)
[2020-06-30] MEDS: NYSTATIN SUSP 500,000 U/5 ML UDC PO SCH ×4 (08:54→22:27)
[2020-06-30] MEDS: CLOPIDOGREL BISULFATE 75 MG TAB PO SCH (08:54)
[2020-06-30] MEDS: ASCORBIC ACID 500 MG TAB PO SCH ×2 (08:54→16:21)
[2020-06-30] MEDS: METOPROLOL SUCC 25MG EXT REL TAB PO SCH ×2 (08:55→22:26)
[2020-06-30] MEDS: CHOLECALCIFEROL 1,000 UNITS 25 MCG TAB PO SCH (08:55)
[2020-06-30] MEDS: ZINC SULFATE 220 MG CAPSULE PO SCH (08:55)
[2020-06-30] MEDS: HEPARIN SOD 5,000 UNIT/0.5 ML VIAL SQ SCH ×3 (08:56→22:25)
[2020-06-30] MEDS ORDERED: [UNRECOGNIZED DRUG - OTHER] PO SCH (09:00)
[2020-06-30] MEDS: lisinopril 2.5 MG TAB PO SCH (09:00)
--- NOTE | 2020-06-30 09:06 | CT Scan Report ---
CT SCAN OF THE RIGHT FEMUR WITH IV CONTRAST CLINICAL HISTORY: Distal right leg pain. Above knee amputation. Leukocytosis. COMPARISON STUDY: MRI of the right lower extremity dated 06/15/2020. TECHNIQUE: Following the IV administration of 93 cc of Optiray 320, CT scan of the right femur is per formed from the bony pelvis to the distal femoral amputation site. Images are reviewed in the axial, sagittal, and coronal planes. IV contrast was administered without complication. A dose lowering tech nique was utilized adhering to the principles of ALARA. CT DOSE: 372.85 mGy.cm FINDINGS: The skeletal structures are osteopenic. There is postoperative change identified consistent with above knee amputation of the right lower extremity. No fracture is identified within the right femur or the visualized right hemipelvis. No lytic or blastic lesion is seen. There is no bony erosio n identified. Mild benign appearing periostitis is seen along the distal femoral shaft. Mild degenera tive change is identified in the right hip. There is a complex fluid collection identified around the distal femoral amputation site. This measures 6.6 x 8.5 x 8.5 cm, best seen on axial image #349. Loc ulated fluid is also seen along the inferior aspect of the stump with a calcification or bone fragmen t. This is best seen on image #389. There is generalized atrophy of the lower extremity musculature. No deep soft tissue gas is seen. Advanced atherosclerotic calcification is seen in the regional arter ies. There are stents within the right femoral artery. These appear thrombosed. Surgical clips are no marlyn along the spermatic cord bilaterally. The bladder is normal as imaged. The prostate gland is mild ly enlarged and heterogeneous. There is marked rectal wall thickening and edema with perirectal infla mmation. IMPRESSION: 1. There is postoperative change consistent with above knee amputation. 2. No osseous abnormality is identified. 3. There is an 8.5 cm complex fluid collection identified around the distal femoral resection site. T his likely represents a postoperative seroma/liquefied hematoma. The sterility cannot be assessed by CT and abscess would be impossible to exclude. 4. Additional loculated fluid and a possible bone fragment are present within the distal soft tissues at the resection stump. 5. There are right femoral artery stents. These appear thrombosed. 6. There is marked rectal wall thickening and edema with perirectal inflammation. Correlate clinicall y for evidence of proctitis. If clinically warranted this could be further assessed with colonoscopy. ACT 112: Negative or not required by law. Dictated: 06/30/2020 8:22 AM Transcribed: 06/30/2020 8:40 AM Cathy [id number] LAUREN_Aristides Electronically signed by: Leif Ramires M.D. 06/30/2020 9:05 AM
--- NOTE | 2020-06-30 09:35 | Pharmacy Report ---
Pharmacy Abx Dose Short Note - Date of Service June 30, 2020 - Assessment & Plan Assessment * 64 year old M receiving VANCOMYCIN + ZOSYN for treatment of possible sepsis from recent revision of R AKA * Patient does have a h/o PVD and B/L lower extremity amputations and was at [facility] follow revision surgery 2 wks prior. Patient reportedly receiving cefepime while at [facility] * WBC, CRP, ESR and procal elevated. MAPs 64-74 range, non-tachycardic * Imaging: CT femur read as: no osseous abnormality, + complex fluid collection likely post-op seroma vs hematoma vs abscess * Last cx taken from R knee growing ps aeruginosa (sens to all abx tested except quinolones and gent), kleb oxytoca (sens all abx tested) and Grp C strep (sens all abx tested). He also does have a h/o MRSA infxn of L leg. * BLCXs pending Plan Vancomycin * 1750mg (~22mg/kg) load x 1 given last night * Maint dose: 1250mg (~15.8mg/kg) IV Q 12 hrs * Goal trough level for sepsis, SSTI : 15 to 20 mcg/mL - initially, may broaden to 10 to 20mcg/mL if sepsis resolved * Trough level ordered w/ 4th dose: 07/02/20 * One may wish to consider use of Daptomycin + Zosyn to avoid nephrotoxicity associated w/ Vanco+Zosyn combo. Zosyn * BMI < 35, eCrCl > 20; continue 3.375gm ext-infusion Q 8 hrs Pharmacy will continue to follow and will adjust dose/frequency as necessary. Thank you.
--- NOTE | 2020-06-30 09:50 | History and Physical Report ---
DATE OF ADMISSION: 06/30/2020 CHIEF COMPLAINT: Leukocytosis. HISTORY OF PRESENT ILLNESS: This is a 64-year-old male with past medical history significant for CAD, CHF with EF 35%, type 2 diabetes, bilateral above-knee amputations, hyperlipidemia, pulmonary emphysema, peripheral vascular disease, history of CVA, GERD. The patient was admitted to the hospital on 05/18/2020 with worsening infection of the right lower extremity. There was plan for right above-knee amputation, but at that time, he developed non-ST elevated SC and echo showed EF of 35%, he was thought to be high risk for cardiac procedure as well as surgical procedures and was transferred to [facility] on 06/01/2020. At [facility] 06/02/2020, cardiac catheterization was done which showed severe coronary artery disease with 90% stenosis of the left main extending into trifurcation of the LAD and also severe multivessel disease and it was felt that the patient's coronary artery disease was inoperable and medical management was recommended and right AKA was performed on discharged with home health services and again patient was readmitted to [facility] on 06/12/2020 with confusion and hyperglycemia, treated with vancomycin, and Rocephin and also received Lasix for congestion. ID recommended 2 weeks of intravenous cefepime and was discharged to [facility]. Again he was brought in today because of elevated leukocytosis. The patient has been resting comfortably, hemodynamically stable. Denies complaints of pain in the right above knee amputation site. There is no drainage or erythema seen. No fever, no chills, no chest pain, no shortness of breath, no cough, no headache, no blurred vision, no runny nose, no sore throat, no difficulty swallowing. Appetite is okay. No nausea, no abdominal pain. Normal bowel and bladder movements. In the ER, CAT scan of the right lower extremity was done which showed some hematoma, but no abscess. ER physician called night monitor vascular surgeon at [facility] and was advised because of there is no abscess,to observe here and treat with antibiotics for now. ALLERGIES: No known drug allergies. PAST MEDICAL HISTORY: As mentioned above. PAST SURGICAL HISTORY: Bilateral above-knee amputations, cardiac catheterization, right and left femoral artery bypass with stent and angioplasty, bilateral iliac artery revascularization, stent and angioplasty. MEDICATIONS: The patient is on Tylenol 650 mg p.o. q. 4 hours p.r.n., ascorbic acid 500 mg p.o. b.i.d., aspirin 81 mg p.o. daily, atorvastatin 80 mg p.o. daily, cefepime 2 grams IV q. 12 hours, vitamin D 2000 units p.o. daily, Plavix 75 mg p.o. daily, Colace 100 mg p.o. t.i.d., famotidine 20 mg p.o. daily, Lasix 20 mg p.o. daily, heparin subQ 5000 units b.i.d., Lantus insulin glargine 17 units subcutaneous p.m., insulin sliding scale, lisinopril 2.5 mg p.o. daily, metoprolol succinate 25 mg p.o. q. 12 hours, nystatin 4 mL p.o. q.i.d., oxycodone as directed, MiraLax 17 grams p.o. daily, Senokot-S 1 tablet p.o. daily, zinc sulfate 220 mg p.o. daily. FAMILY HISTORY: No family history in file. SOCIAL HISTORY: Smokes half pack a day for 50 years. Alcohol, social drinking. No drug use. REVIEW OF SYMPTOMS: As per HPI. Rest of review of systems negative. PHYSICAL EXAMINATION: GENERAL: The patient is of moderate build, not in acute distress. VITAL SIGNS: Temperature 36.6, pulse 87, respiratory rate 19, blood pressure 101/61, oxygen 99% on room air. HEENT: Pupils equal, round, and reactive to light. Oral mucosa white lesions seen on the tounge. NECK: No neck masses. Neck supple. CARDIOVASCULAR: S1, S2 heard, regular rate and rhythm, no murmur, no gallop. RESPIRATORY SYSTEM: Normal AP diameter. No accessory muscle use. No wheezing, no crackles. ABDOMEN: Soft, bowel sounds present, nontender. No distention. CENTRAL NERVOUS SYSTEM: Cranial nerves II-XII grossly intact, nonfocal. EXTREMITIES: Bilateral above-knee amputation, right above knee amputation site, no drainage, no erythema seen. Mild tenderness on palpation. LABORATORY DATA: WBC 20.5, hemoglobin 10.8, hematocrit 33, platelets 328. PT 12.7, INR 1.2, APTT 33.6. Sodium 138, potassium 4.1, chloride 107, bicarbonate 26, BUN 27, creatinine 1.07, serum glucose 104. Lactate 1.3, calcium 8.8, phosphorus 1.8, total bilirubin 1, AST 15, ALT 10, alkaline phosphatase 116. Troponin I 0.04. C-reactive protein 15.6. Procalcitonin 4.7. Urinalysis negative. COVID-19 SARS-CoV-2 RNA negative. Chest x-ray, stable mild cardiomegaly, mild congestive changes. Femur CT preliminary report complex fluid collection around the stump favor to represent hematoma, no evidence of acute osteomyelitis. No abscess. ASSESSMENT AND PLAN: This is a 64-year-old male who recently had right above-knee amputation, currently on cefepime at [facility] was sent in here because of elevated leukocytosis. 1. Leukocytosis, SIRS.. No obvious infections seen. The stump site has no drainage seen and CAT scan showed no abscess or hematoma. ER physician called vascular surgeon on-call at [facility] and told to continue antibiotics and monitor. He was started on Daptomycin and Zosyn, we will change to vancomycin and Zosyn as patient on high dose statin. Monitor and follow the cultures. Follow the labs. 2. Mild elevation of troponin, levels are better than recent admission. The patient does not have any chest pain. We will follow the serial enzymes. His EKG shows normal sinus rhythm, rate of 85. ST depressions seen in inferior leads. We will follow the repeat EKG and if any concern, we will consult Cardiology. Patient is currently asymptomatic. 3. Chronic systolic congestive heart failure. Continue home Lasix and Toprol-XL and lisinopril. We will monitor the volume overload. 4. History of severe coronary artery disease status post recent cardiac catheterization showed severe coronary artery disease with inoperable lesions,medical management recommended.. Continue aspirin, Plavix, high dose statin and Toprol- XL. 5. History of cerebrovascular accident. Continue aspirin, Plavix and statin. 6. Diabetes. Continue his long-acting insulin and placed on insulin sliding scale. Follow the blood sugars. 7. Thrush.asymptomatic. continue nystatin swish and swallow. 8. Deep venous thrombosis prophylaxis, heparin subQ b.i.d. dosing. DISPOSITION: Admit to tele floor. Expect discharge back to [facility] when stable. Level 1, full code. MTDD
[2020-06-30] MEDS: POLYETHYLENE (MIRALAX) 17 GM PACK PO SCH (11:55)
[2020-06-30] MEDS: VANCOMYCIN HCL 1,250 MG in SODIUM CHLORIDE 0.9% 250 ML IV SCH (16:19)
--- NOTE | 2020-06-30 19:28 | Electrocardiogram Report ---
Test Reason : Blood Pressure : / mmHG Vent. Rate : 085 BPM Atrial Rate : 085 BPM P-R Int : 208 ms QRS Dur : 104 ms QT Int : 376 ms P-R-T Axes : 068 070 220 degrees QTc Int : 447 ms Poor data quality, interpretation may be adversely affected Sinus rhythm with 1st degree A-V block Cannot rule out Anterior infarct , age undetermined Abnormal ECG When compared with ECG of 15-JUN-2020 14:43, ST now depressed in Inferior leads T wave inversion more evident in Inferior leads Confirmed by Elmer Fairchild ([id number]) on 06/30/2020 7:27:35 PM Referred By: REFERRED SELF Confirmed By:Elmer Fairchild
[2020-06-30] MEDS: INSULIN GLARGINE SOLOSTAR 100 UNITS/ML 3 ML PEN SQ SCH (22:22)
--- NOTE | 2020-07-01 01:35 | History and Physical Report ---
Derrick avina Thanks [facility]
[2020-07-01] MEDS: VANCOMYCIN HCL 1,250 MG in SODIUM CHLORIDE 0.9% 250 ML IV SCH ×2 (03:44→15:55)
[2020-07-01] MEDS: HYDROmorphone INJ 1 MG/ML SYRINGE IV PRN ×4 (03:47→22:38)
[2020-07-01] MEDS: PIPERACILLIN/TAZOBACTAM 3.375 GM in DEXTROSE 5% 100 ML IV SCH ×3 (04:28→20:52)
[2020-07-01 06:39] LABS: Basophils # (auto) 0.03 K/uL (0-0.2); Basophils % (auto) 0.2 %; Eosinophils # (auto) 0.15 K/uL (0-0.5); Hematocrit (blood only) 29.9 % (42-52); Hemoglobin 9.9 g/dL (14.0-18.0); Immature Granulocytes # (auto) 0.04 K/uL (0.00-0.02); Immature Granulocytes % (auto) 0.3 %; Lymphocytes # (auto) 2.05 K/uL (1.2-3.4); Lymphocytes % (auto) 13.3 %; Mean Corpuscular Hemoglobin 31.9 pg (25-34); Mean Corpuscular Hgb Conc 33.1 g/dL (32-36); Mean Corpuscular Volume 96.5 fL (80-100); Mean Platelet Volume 10.1 fL (7.4-10.4); Monocytes # (auto) 1.18 K/uL (0.11-0.59); Monocytes % (auto) 7.6 %; Neutrophils # (auto) 11.98 K/uL (1.4-6.5); Neutrophils % (auto) 77.6 %; Platelet Count 286 K/uL (130-400); RDW Coefficient of Variation 16.2 % (11.5-14.5); RDW Standard Deviation 56.9 fL (36.4-46.3); White Blood Count 15.43 K/uL (4.8-10.8)
[2020-07-01 07:26] LABS: BUN Creatinine Ratio 21.7 (10-20); Calcium 9.1 mg/dl (8.5-10.1); Creatinine Clr Calc Pharmacy 78.2 ml/min; Est GFR (African American) 88.4; Est GFR (Non-African American) 76.2; Potassium 3.1 mmol/L (3.5-5.1)
[2020-07-01] MEDS: HEPARIN SOD 5,000 UNIT/0.5 ML VIAL SQ SCH ×2 (07:57→20:55)
[2020-07-01] MEDS: ASPIRIN 81 MG ECTAB PO SCH (07:57)
[2020-07-01] MEDS: DOCUSATE SODIUM 100 MG CAP PO SCH ×3 (07:58→20:54)
[2020-07-01] MEDS: CLOPIDOGREL BISULFATE 75 MG TAB PO SCH (07:58)
[2020-07-01] MEDS: FUROSEMIDE 20 MG TAB PO SCH (07:59)
[2020-07-01] MEDS: ATORVASTATIN 40 MG TAB PO SCH (07:59)
[2020-07-01] MEDS: NYSTATIN SUSP 500,000 U/5 ML UDC PO SCH ×4 (07:59→20:54)
[2020-07-01] MEDS: INSULIN ASPART 100 UNITS/ML 3 ML PEN SC SCH ×4 (08:00→22:38)
[2020-07-01] MEDS: CHOLECALCIFEROL 1,000 UNITS 25 MCG TAB PO SCH (08:00)
[2020-07-01] MEDS: ASCORBIC ACID 500 MG TAB PO SCH ×2 (08:01→15:54)
[2020-07-01] MEDS: FAMOTIDINE 20 MG TAB PO SCH (08:01)
[2020-07-01] MEDS: ZINC SULFATE 220 MG CAPSULE PO SCH (08:02)
[2020-07-01] MEDS: lisinopril 2.5 MG TAB PO SCH (08:02)
[2020-07-01] MEDS: METOPROLOL SUCC 25MG EXT REL TAB PO SCH ×2 (08:02→20:55)
[2020-07-01] MEDS ORDERED: POTASSIUM CHLORIDE CRTAB 20 MEQ TABCR PO STA (08:06)
[2020-07-01] MEDS: POLYETHYLENE (MIRALAX) 17 GM PACK PO SCH (10:06)
[2020-07-01] MEDS: POTASSIUM CHLORIDE / WTR 10 MEQ/100 ML PLCT IV SCH (10:07)
--- NOTE | 2020-07-01 17:00 | Hospitalist Progress Note ---
Date of Service July 01, 2020 Assessment & Plan (1) Leukocytosis: [place] [facility] [facility] on 12 June and discharged on June secondary to cellulitis/myositis of the stump Back from [facility] on of this month with increasing pain and leukocytosis without fever CT scan of the right lower femur showed complex fluid collection about 8.5 cm No open wound or drainage Has been on intravenous vancomycin and Zosyn White count has been improving Getting pain medications as well Discussing with the vascular surgery in [place] (2) Unilateral complete AKA: As above (3) Cerebrovascular disease: No acute symptoms (4) Troponin level elevated: Mildly elevated-No suspicious of ACS (5) CAD in [place] artery: (6) DM type 2 (diabetes mellitus, type 2): (7) Peripheral vascular disease: (8) Chronic systolic heart failure: stable Admission and Anticipated Discharge Date Admission Date: June 30, 2020 Subjective 07/01/2020 The patient was seen and examined in telemetry unit He has been complaining of severe pain involving the right amputation stump Denies any fever and/or chills Denies any chest pain and/or palpitation Review of Systems Review of Systems: All systems reviewed and are unremarkable except as noted below Musculoskeletal: Pain at right AKA stump Physical Exam Physical Exam: Lying in bed with some discomfort due to pain Constitutional: well developed, well nourished, + acute distress (Secondary to pain in right amputation stump) and + ill appearing Eyes: PERRL, conjunctivae normal, anicteric sclerae ENMT: external ear and nose normal, oropharynx normal Neck: trachea midline, no thyromegaly Respiratory: normal respiratory effort; no respiratory distress Auscultation: lungs clear to auscultation bilaterally Cardiovascular: Rate/Rhythm: regular rate and regular rhythm Heart Sounds: + murmur (2/6 ESM over precordium) Gastrointestinal (Abdomen): Inspection/Auscultation: normal bowel sounds; abdomen not distended Percussion/Palpation: abdomen soft; abdomen nontender Musculoskeletal: Extremities: + amputation noted (Right AKA amputation stump swollen, tender with increased local temperature) Neurologic: Alert, awake and oriented x3 Lymphatic: no cervical or axillary lymphadenopathy Results & Data Results & Data ([facility]) Vital Signs (Past 12 Hours) Vital Signs Temp Pulse Resp BP Pulse Ox 07/01/20 15:18 36.7 C 87 24 122/68 95 07/01/20 11:27 36.7 C 82 18 127/67 97 07/01/20 07:55 36.8 C 76 18 97/54 L 99 Laboratory Results Short CBC 07/01/20 Range/Units 06:21 WBC 15.43 H (4.8-10.8) K/uL Hgb 9.9 L (14.0-18.0) g/dL Hct 29.9 L (42-52) % Plt Count 286 (130-400) K/uL BMP 07/01/20 06:21 Sodium 141 Potassium 3.1 L D Chloride 109 H Carbon Dioxide 22 BUN 22 H Creatinine 1.02 Glucose 145 H Calcium 9.1 Cardiac Enzymes 06/30/20 Range/Units 19:25 Troponin I 0.645 H* (0-0.045) ng/ml Medications Administered Current Inpatient Medications Acetaminophen (Acetaminophen 325 Mg Tab) 650 mg PO Q4H PRN PRN Reason: Pain or Fever Stop: 07/30/20 02:17 Last Admin: 07/01/20 03:47 Dose: 650 mg Documented by: Ascorbic Acid (Ascorbic Acid 500 Mg Tab) 500 mg PO BIDM [facility] Stop: 07/30/20 07:59 Last Admin: 07/01/20 15:54 Dose: Not Given Documented by: Aspirin (Aspirin 81 Mg Ectab) 81 mg PO DAILY [facility] Stop: 07/30/20 08:59 Last Admin: 07/01/20 07:57 Dose: 81 mg Documented by: Atorvastatin Calcium (Atorvastatin 40 Mg Tab) 80 mg PO DAILY [facility] Stop: 07/30/20 08:59 Last Admin: 07/01/20 07:59 Dose: 80 mg Documented by: Clopidogrel Bisulfate (Clopidogrel Bisulfate 75 Mg Tab) 75 mg PO DAILY [facility] Stop: 07/30/20 08:59 Last Admin: 07/01/20 07:58 Dose: 75 mg Documented by: Dextrose (Dextrose 50% 50 Ml Syringe) 25 - 50 ml IV UD PRN; Protocol PRN Reason: Hypoglycemia Protocol Stop: 07/30/20 03:14 Docusate Sodium (Docusate Sodium 100 Mg Cap) 100 mg PO TID [facility]NA Stop: 07/30/20 08:59 Last Admin: 07/01/20 11:26 Dose: Not Given Documented by: Famotidine (Famotidine 20 Mg Tab) 20 mg PO DAILY [facility] Stop: 07/30/20 08:59 Last Admin: 07/01/20 08:01 Dose: 20 mg Documented by: Furosemide (Furosemide 20 Mg Tab) 20 mg PO DAILY [facility] Stop: 07/30/20 08:59 Last Admin: 07/01/20 07:59 Dose: Not Given Documented by: Glucagon (Glucagon For Inj 1 Mg Vial) 1 mg SQ UD PRN; Protocol PRN Reason: Hypoglycemia Protocol Stop: 07/30/20 03:14 Glucose (Glucose 40% Gel 15 Gm Tube) 15 - 30 gm PO UD PRN; Protocol PRN Reason: Hypoglycemia Protocol Stop: 07/30/20 03:14 Glucose (Glucose 10 Tabs/Tube) 4 - 8 tabs PO UD PRN; Protocol PRN Reason: Hypoglycemia Protocol Stop: 07/30/20 03:14 Heparin Sodium (Beef Lung) (Heparin 10 Unit/Ml 5 Ml Flush) 5 ml FLUSH PRN PRN PRN Reason: Flush Stop: 07/30/20 23:09 Heparin Sodium (Porcine) (Heparin Sod 5,000 Unit/0.5 Ml Vial) 5,000 units SQ Q12 [facility] Stop: 07/30/20 08:59 Last Admin: 07/01/20 07:57 Dose: 5,000 units Documented by: Hydromorphone HCl (Hydromorphone Inj 1 Mg/Ml Syringe) 1 mg IV Q4H PRN PRN Reason: Pain Stop: 07/14/20 16:04 Last Admin: 07/01/20 12:03 Dose: 1 mg Documented by: Piperacillin Sod/Tazobactam (Sod 3.375 gm/ Dextrose) 115 mls @ 28.75 mls/hr IV Q8H VANDANA; Protocol Stop: 07/07/20 03:59 Last Infusion: 07/01/20 16:09 Dose: Infused Documented by: Vancomycin HCl 1,250 mg/ (Sodium Chloride) 275 mls @ 200 mls/hr IV Q12H [facility] Stop: 07/07/20 15:59 Last Admin: 07/01/20 15:55 Dose: 200 mls/hr Documented by: Insulin Aspart (Insulin Aspart 100 Units/Ml 3 Ml Pen) 0 units SC ACHS [facility] Stop: 07/30/20 07:29 Last Admin: 07/01/20 11:57 Dose: 1 units Documented by: Insulin Glargine (Insulin Glargine Solostar 100 Units/Ml 3 Ml Pen) 17 units SQ QPM [facility] Stop: 07/30/20 20:59 Last Admin: 06/30/20 22:22 Dose: 17 units Documented by: Lisinopril (Lisinopril 2.5 Mg Tab) 2.5 mg PO DAILY [facility] Stop: 07/30/20 08:59 Last Admin: 07/01/20 08:02 Dose: Not Given Documented by: Metoprolol Succinate (Metoprolol Succ 25mg Ext Rel Tab) 25 mg PO Q12H [facility] Stop: 07/30/20 08:59 Last Admin: 07/01/20 08:02 Dose: Not Given Documented by: Miscellaneous (Carbohydrates For Hypoglycemia ) 15 - 30 gm PO UD PRN PRN Reason: Hypoglycemia Treatment Stop: 07/30/20 03:14 Miscellaneous Information (Piperacill/Tazobac Consult Active) 1 ea N/A UD PRN PRN Reason: Consult Stop: 07/29/20 20:34 Miscellaneous Information (Vancomycin Consult Active) 1 ea N/A UD PRN PRN Reason: Consult Stop: 07/30/20 02:17 Nitroglycerin (Nitroglycerin Sl 0.4 Mg/Tab Tab) 0.4 mg SL UD PRN PRN Reason: Chest Pain Stop: 07/30/20 02:17 Nystatin (Nystatin Susp 500,000 U/5 Ml Udc) 5 ml PO QID [facility] Stop: 07/10/20 08:59 Last Admin: 07/01/20 15:54 Dose: Not Given Documented by: Oxycodone HCl (Oxycodone Hcl Ir 5 Mg Tab (Immediate Release)) 5 mg PO Q4H PRN PRN Reason: Pain Stop: 07/14/20 02:57 Polyethylene Glycol (Polyethylene (Miralax) 17 Gm Pack) 17 gm PO DAILY PRN PRN Reason: Constipation Stop: 07/30/20 02:17 Polyethylene Glycol (Polyethylene (Miralax) 17 Gm Pack) 17 gm PO QDL [facility] Stop: 07/30/20 11:29 Last Admin: 07/01/20 10:06 Dose: Not Given Documented by: Senna/Docusate Sodium (Docusate Sodium/Senna 50/8.6mg Tab) 1 tab PO QDL PRN PRN Reason: Constipation Stop: 07/30/20 02:17 Vitamin D (Cholecalciferol 1,000 Units 25 Mcg Tab) 2,000 units PO DAILY [facility] Stop: 07/30/20 08:59 Last Admin: 07/01/20 08:00 Dose: 2,000 units Documented by: Zinc Sulfate (Zinc Sulfate 220 Mg Capsule) 220 mg PO DAILY [facility] Stop: 07/30/20 08:59 Last Admin: 07/01/20 08:02 Dose: 220 mg Documented by: (1) DM type 2 (diabetes mellitus, type 2) Diabetes mellitus senior living insulin use: with buttermaker continuous churn use Diabetes mellitus complication status: with neurologic complications Diabetes mellitus complication detail: with unspecified neuropathy Qualified Code(s): E11.40 - Type 2 diabetes mellitus with diabetic neuropathy, unspecified; Z79.4 - buttermaker continuous churn (current) use of insulin
[2020-07-01] MEDS: INSULIN GLARGINE SOLOSTAR 100 UNITS/ML 3 ML PEN SQ SCH (22:38)
[2020-07-02] MEDS ORDERED: VANCOMYCIN TROUGH ONE (03:30)
[2020-07-02 03:35] LABS: Basophils # (auto) 0.03 K/uL (0-0.2); Basophils % (auto) 0.3 %; Eosinophils # (auto) 0.29 K/uL (0-0.5); Eosinophils % (auto) 2.9 %; Immature Granulocytes # (auto) 0.03 K/uL (0.00-0.02); Immature Granulocytes % (auto) 0.3 %; Lymphocytes # (auto) 2.34 K/uL (1.2-3.4); Lymphocytes % (auto) 23.6 %; Mean Corpuscular Hemoglobin 31.3 pg (25-34); Mean Corpuscular Hgb Conc 32.3 g/dL (32-36); Mean Corpuscular Volume 96.9 fL (80-100); Monocytes # (auto) 0.88 K/uL (0.11-0.59); Monocytes % (auto) 8.9 %; Neutrophils # (auto) 6.35 K/uL (1.4-6.5); Platelet Count 275 K/uL (130-400); RDW Coefficient of Variation 16.1 % (11.5-14.5); RDW Standard Deviation 56.7 fL (36.4-46.3); White Blood Count 9.92 K/uL (4.8-10.8)
[2020-07-02 03:51] LABS: BUN Creatinine Ratio 23.4 (10-20); Calcium 8.6 mg/dl (8.5-10.1); Creatinine Clr Calc Pharmacy 94.9 ml/min; Est GFR (African American) 105.7; Est GFR (Non-African American) 91.2; Potassium 3.3 mmol/L (3.5-5.1)
[2020-07-02] MEDS: PIPERACILLIN/TAZOBACTAM 3.375 GM in DEXTROSE 5% 100 ML IV SCH ×3 (04:58→20:21)
[2020-07-02] MEDS: VANCOMYCIN HCL 1,250 MG in SODIUM CHLORIDE 0.9% 250 ML IV SCH (04:58)
[2020-07-02] MEDS: DOCUSATE SODIUM 100 MG CAP PO SCH ×3 (08:18→20:28)
[2020-07-02] MEDS: METOPROLOL SUCC 25MG EXT REL TAB PO SCH ×2 (08:19→20:28)
[2020-07-02] MEDS: HEPARIN SOD 5,000 UNIT/0.5 ML VIAL SQ SCH ×3 (08:19→20:27)
[2020-07-02] MEDS: CHOLECALCIFEROL 1,000 UNITS 25 MCG TAB PO SCH (08:19)
[2020-07-02] MEDS: lisinopril 2.5 MG TAB PO SCH (08:20)
[2020-07-02] MEDS: ASCORBIC ACID 500 MG TAB PO SCH ×2 (08:20→16:46)
[2020-07-02] MEDS: FUROSEMIDE 20 MG TAB PO SCH (08:20)
[2020-07-02] MEDS: ZINC SULFATE 220 MG CAPSULE PO SCH (08:21)
[2020-07-02] MEDS: ATORVASTATIN 40 MG TAB PO SCH (08:21)
[2020-07-02] MEDS: ASPIRIN 81 MG ECTAB PO SCH (08:21)
[2020-07-02] MEDS: FAMOTIDINE 20 MG TAB PO SCH (08:21)
[2020-07-02] MEDS: NYSTATIN SUSP 500,000 U/5 ML UDC PO SCH ×4 (08:21→20:27)
[2020-07-02] MEDS: CLOPIDOGREL BISULFATE 75 MG TAB PO SCH (08:22)
--- NOTE | 2020-07-02 09:01 | Pharmacy Report ---
Pharmacy Abx Dose Short Note - Date of Service July 02, 2020 - Assessment & Plan Assessment 64 year old M receiving vancomycin/Zosyn for treatment of sepsis/soft skin and tissue infection Day # 3 of antimicrobial therapy. Plan Vancomycin * Trough level of 22.7 mcg/mL is supratherapeutic * Change to 1000 mg IV every 12 hours (hold by 2 hours) * Goal trough level for sepsis : 15 to 20 mcg/mL * Trough ordered for: 07/04/20 prior to 0600 dose Pharmacy will continue to follow and will adjust dose/frequency as necessary. Thank you.
[2020-07-02] MEDS: INSULIN ASPART 100 UNITS/ML 3 ML PEN SC SCH ×4 (09:32→20:35)
[2020-07-02] MEDS: POLYETHYLENE (MIRALAX) 17 GM PACK PO SCH (11:20)
[2020-07-02] MEDS: HYDROmorphone INJ 1 MG/ML SYRINGE IV PRN ×2 (13:45→19:31)
[2020-07-02] MEDS: oxyCODONE HCL IR 5 MG TAB (IMMEDIATE RELEASE) PO PRN ×2 (13:52→20:45)
--- NOTE | 2020-07-02 14:31 | Hospitalist Progress Note ---
Date of Service July 02, 2020 Assessment & Plan (1) Leukocytosis: Status [place] [facility] [place] to [facility] on 12 June and discharged on June first secondary to cellulitis/myositis of the stump Back from [facility] on of this month with increasing pain and leukocytosis without fever CT scan of the right lower femur showed complex fluid collection about 8.5 cm No open wound or drainage. Has been on intravenous vancomycin and Zosyn He has been feeling a lot better today 07/02/2020 His pain and swelling have improved and white count has been normalized Discussed with vascular surgery in [place] Dr. Ashwin Mosqueda-imaging studies uploaded for his review Does not think it is an abscess without any evidence of free air and/or external wound after so many days of surgery He was evaluated by him on 24 June as an outpatient infection and/or abscess The leukocytosis could be secondary to inflammation Suggested to continue intravenous antibiotic as per ID recommendation before and finish the course Appreciate wound care nurse input and recommendation (2) Unilateral complete AKA: As above We will get PT and OT evaluation for planning with discharge (3) Cerebrovascular disease: No acute symptoms (4) Troponin level elevated: Mildly elevated-No suspicious of ACS No acute symptoms (5) CAD in [place] artery: (6) DM type 2 (diabetes mellitus, type 2): SSI Blood sugar controlled (7) Peripheral vascular disease: (8) Chronic systolic heart failure: stable Admission and Anticipated Discharge Date Admission Date: June 30, 2020 Subjective 07/01/2020 The patient was seen and examined in telemetry unit He has been complaining of severe pain involving the right amputation stump Denies any fever and/or chills Denies any chest pain and/or palpitation 07/02/2020 The patient was seen and examined in telemetry unit He has been feeling a lot better today His pain in the right stump is much improved Denies any fever and/or chills Review of Systems Review of Systems: All systems reviewed and are unremarkable except as noted below Musculoskeletal: Pain at right AKA stump Physical Exam Physical Exam: Lying in bed without any discomfort Constitutional: well developed, well nourished, + acute distress (Secondary to pain in right amputation stump) and + ill appearing Eyes: PERRL, conjunctivae normal, anicteric sclerae ENMT: external ear and nose normal, oropharynx normal Neck: trachea midline, no thyromegaly Respiratory: normal respiratory effort; no respiratory distress Auscultation: lungs clear to auscultation bilaterally Cardiovascular: Rate/Rhythm: regular rate and regular rhythm Heart Sounds: + murmur (2/6 ESM over precordium) Gastrointestinal (Abdomen): Inspection/Auscultation: normal bowel sounds; abdomen not distended Percussion/Palpation: abdomen soft; abdomen nontender Musculoskeletal: Extremities: + amputation noted (Right AKA amputation stump swollen, tender with increased local temperature) Skin: He has a very small sacral pressure sore Neurologic: Alert, awake and oriented. Generally weak Lymphatic: no cervical or axillary lymphadenopathy Results & Data Results & Data ([facility]) Vital Signs (Past 12 Hours) Vital Signs Temp Pulse Pulse Resp BP Pulse Ox 07/02/20 11:09 37.0 C 78 19 131/71 98 07/02/20 07:20 37.2 C 79 19 137/70 96 07/02/20 07:17 90 07/02/20 03:34 37.0 C 79 19 107/61 97 Laboratory Results Short CBC 07/02/20 Range/Units 03:16 WBC 9.92 (4.8-10.8) K/uL Hgb 10.0 L (14.0-18.0) g/dL Hct 31.0 L (42-52) % Plt Count 275 (130-400) K/uL BMP 07/02/20 03:16 Sodium 143 Potassium 3.3 L Chloride 111 H Carbon Dioxide 26 BUN 20 H Creatinine 0.84 Glucose 119 H Calcium 8.6 Medications Administered Current Inpatient Medications Acetaminophen (Acetaminophen 325 Mg Tab) 650 mg PO Q4H PRN PRN Reason: Pain or Fever Stop: 07/30/20 02:17 Last Admin: 07/01/20 03:47 Dose: 650 mg Documented by: Ascorbic Acid (Ascorbic Acid 500 Mg Tab) 500 mg PO BIDM [facility] Stop: 07/30/20 07:59 Last Admin: 07/02/20 08:20 Dose: 500 mg Documented by: Aspirin (Aspirin 81 Mg Ectab) 81 mg PO DAILY [facility] Stop: 07/30/20 08:59 Last Admin: 07/02/20 08:21 Dose: 81 mg Documented by: Atorvastatin Calcium (Atorvastatin 40 Mg Tab) 80 mg PO DAILY [facility] Stop: 07/30/20 08:59 Last Admin: 07/02/20 08:21 Dose: 80 mg Documented by: Clopidogrel Bisulfate (Clopidogrel Bisulfate 75 Mg Tab) 75 mg PO DAILY [facility] Stop: 07/30/20 08:59 Last Admin: 07/02/20 08:22 Dose: 75 mg Documented by: Dextrose (Dextrose 50% 50 Ml Syringe) 25 - 50 ml IV UD PRN; Protocol PRN Reason: Hypoglycemia Protocol Stop: 07/30/20 03:14 Docusate Sodium (Docusate Sodium 100 Mg Cap) 100 mg PO TID [facility] Stop: 07/30/20 08:59 Last Admin: 07/02/20 12:24 Dose: Not Given Documented by: Famotidine (Famotidine 20 Mg Tab) 20 mg PO DAILY [facility] Stop: 07/30/20 08:59 Last Admin: 07/02/20 08:21 Dose: 20 mg Documented by: Furosemide (Furosemide 20 Mg Tab) 20 mg PO DAILY [facility] Stop: 07/30/20 08:59 Last Admin: 07/02/20 08:20 Dose: 20 mg Documented by: Glucagon (Glucagon For Inj 1 Mg Vial) 1 mg SQ UD PRN; Protocol PRN Reason: Hypoglycemia Protocol Stop: 07/30/20 03:14 Glucose (Glucose 40% Gel 15 Gm Tube) 15 - 30 gm PO UD PRN; Protocol PRN Reason: Hypoglycemia Protocol Stop: 07/30/20 03:14 Glucose (Glucose 10 Tabs/Tube) 4 - 8 tabs PO UD PRN; Protocol PRN Reason: Hypoglycemia Protocol Stop: 07/30/20 03:14 Heparin Sodium (Beef Lung) (Heparin 10 Unit/Ml 5 Ml Flush) 5 ml FLUSH PRN PRN PRN Reason: Flush Stop: 07/30/20 23:09 Heparin Sodium (Porcine) (Heparin Sod 5,000 Unit/0.5 Ml Vial) 5,000 units SQ Q12 [facility] Stop: 07/30/20 08:59 Last Admin: 07/02/20 08:24 Dose: Not Given Documented by: Hydromorphone HCl (Hydromorphone Inj 1 Mg/Ml Syringe) 1 mg IV Q4H PRN PRN Reason: Pain Stop: 07/14/20 16:04 Last Admin: 07/02/20 13:45 Dose: 1 mg Documented by: Piperacillin Sod/Tazobactam (Sod 3.375 gm/ Dextrose) 115 mls @ 28.75 mls/hr IV Q8H [facility]; Protocol Stop: 07/07/20 03:59 Last Admin: 07/02/20 12:22 Dose: 29 mls/hr Documented by: Vancomycin HCl 1,000 mg/ (Sodium Chloride) 270 mls @ 200 mls/hr IV Q12H [facility] Stop: 07/09/20 17:59 Insulin Aspart (Insulin Aspart 100 Units/Ml 3 Ml Pen) 0 units SC ACHS [facility] Stop: 07/30/20 07:29 Last Admin: 07/02/20 12:19 Dose: 3 units Documented by: Insulin Glargine (Insulin Glargine Solostar 100 Units/Ml 3 Ml Pen) 17 units SQ QPM [facility] Stop: 07/30/20 20:59 Last Admin: 07/01/20 22:38 Dose: 17 units Documented by: Lisinopril (Lisinopril 2.5 Mg Tab) 2.5 mg PO DAILY [facility] Stop: 07/30/20 08:59 Last Admin: 07/02/20 08:20 Dose: 2.5 mg Documented by: Metoprolol Succinate (Metoprolol Succ 25mg Ext Rel Tab) 25 mg PO Q12H [facility] Stop: 07/30/20 08:59 Last Admin: 07/02/20 08:19 Dose: 25 mg Documented by: Miscellaneous (Carbohydrates For Hypoglycemia ) 15 - 30 gm PO UD PRN PRN Reason: Hypoglycemia Treatment Stop: 07/30/20 03:14 Miscellaneous Information (Piperacill/Tazobac Consult Active) 1 ea N/A UD PRN PRN Reason: Consult Stop: 07/29/20 20:34 Miscellaneous Information (Vancomycin Consult Active) 1 ea N/A UD PRN PRN Reason: Consult Stop: 07/30/20 02:17 Nitroglycerin (Nitroglycerin Sl 0.4 Mg/Tab Tab) 0.4 mg SL UD PRN PRN Reason: Chest Pain Stop: 07/30/20 02:17 Nystatin (Nystatin Susp 500,000 U/5 Ml Udc) 5 ml PO QID [facility] Stop: 07/10/20 08:59 Last Admin: 07/02/20 12:23 Dose: 5 ml Documented by: Oxycodone HCl (Oxycodone Hcl Ir 5 Mg Tab (Immediate Release)) 5 mg PO Q4H PRN PRN Reason: Pain Stop: 07/14/20 02:57 Last Admin: 07/02/20 13:52 Dose: 5 mg Documented by: Polyethylene Glycol (Polyethylene (Miralax) 17 Gm Pack) 17 gm PO DAILY PRN PRN Reason: Constipation Stop: 07/30/20 02:17 Polyethylene Glycol (Polyethylene (Miralax) 17 Gm Pack) 17 gm PO QDL [facility] Stop: 07/30/20 11:29 Last Admin: 07/02/20 11:20 Dose: Not Given Documented by: Senna/Docusate Sodium (Docusate Sodium/Senna 50/8.6mg Tab) 1 tab PO QDL PRN PRN Reason: Constipation Stop: 07/30/20 02:17 Vitamin D (Cholecalciferol 1,000 Units 25 Mcg Tab) 2,000 units PO DAILY [facility] Stop: 07/30/20 08:59 Last Admin: 07/02/20 08:19 Dose: 2,000 units Documented by: Zinc Sulfate (Zinc Sulfate 220 Mg Capsule) 220 mg PO DAILY [facility] Stop: 07/30/20 08:59 Last Admin: 07/02/20 08:21 Dose: 220 mg Documented by: (1) DM type 2 (diabetes mellitus, type 2) Diabetes mellitus rat exterminator insulin use: with rat exterminator use Diabetes mellitus complication status: with neurologic complications Diabetes mellitus complication detail: with unspecified neuropathy Qualified Code(s): E11.40 - Type 2 diabetes mellitus with diabetic neuropathy, unspecified; Z79.4 - termite exterminator helper (current) use of insulin
[2020-07-02] MEDS: VANCOMYCIN HCL 1,000 MG in SODIUM CHLORIDE 0.9% 250 ML IV SCH (17:15)
[2020-07-02] MEDS: INSULIN GLARGINE SOLOSTAR 100 UNITS/ML 3 ML PEN SQ SCH (20:36)
[2020-07-03] MEDS ORDERED: LIDOCAINE 2% JELLY 5 ML TUBE EXT STA (00:03)
[2020-07-03] MEDS ORDERED: LIDOCAINE 2% JELLY 5 ML TUBE ONE (00:13)
[2020-07-03] MEDS ORDERED: Nursing to Pharmacy Communication SCH (00:15)
[2020-07-03] MEDS: HYDROmorphone INJ 1 MG/ML SYRINGE IV PRN (00:22)
[2020-07-03] MEDS: PIPERACILLIN/TAZOBACTAM 3.375 GM in DEXTROSE 5% 100 ML IV SCH ×4 (04:31→19:37)
[2020-07-03] MEDS: VANCOMYCIN HCL 1,000 MG in SODIUM CHLORIDE 0.9% 250 ML IV SCH ×2 (05:46→17:20)
[2020-07-03 07:29] LABS: Basophils # (auto) 0.03 K/uL (0-0.2); Basophils % (auto) 0.3 %; Eosinophils # (auto) 0.29 K/uL (0-0.5); Eosinophils % (auto) 3.1 %; Hematocrit (blood only) 32.1 % (42-52); Hemoglobin 10.6 g/dL (14.0-18.0); Immature Granulocytes # (auto) 0.04 K/uL (0.00-0.02); Immature Granulocytes % (auto) 0.4 %; Lymphocytes # (auto) 2.17 K/uL (1.2-3.4); Lymphocytes % (auto) 23.4 %; Mean Corpuscular Hemoglobin 32.1 pg (25-34); Mean Corpuscular Volume 97.3 fL (80-100); Mean Platelet Volume 10.1 fL (7.4-10.4); Monocytes # (auto) 0.81 K/uL (0.11-0.59); Monocytes % (auto) 8.7 %; Neutrophils # (auto) 5.92 K/uL (1.4-6.5); Neutrophils % (auto) 64.1 %; Platelet Count 286 K/uL (130-400); RDW Coefficient of Variation 16.1 % (11.5-14.5); RDW Standard Deviation 57.6 fL (36.4-46.3); White Blood Count 9.26 K/uL (4.8-10.8)
[2020-07-03 07:58] LABS: BUN Creatinine Ratio 23.2 (10-20); C Reactive Protein 3.02 mg/dl (0-0.29); Calcium 8.8 mg/dl (8.5-10.1); Creatinine Clr Calc Pharmacy 99.4 ml/min; Est GFR (African American) 108.5; Est GFR (Non-African American) 93.6; Potassium 3.1 mmol/L (3.5-5.1)
[2020-07-03] MEDS ORDERED: POTASSIUM CHLORIDE CRTAB 20 MEQ TABCR PO ONE (08:37)
[2020-07-03] MEDS: INSULIN ASPART 100 UNITS/ML 3 ML PEN SC SCH ×4 (08:49→20:45)
[2020-07-03] MEDS: HEPARIN SOD 5,000 UNIT/0.5 ML VIAL SQ SCH ×3 (09:07→22:43)
[2020-07-03] MEDS: ASPIRIN 81 MG ECTAB PO SCH (09:17)
[2020-07-03] MEDS: ASCORBIC ACID 500 MG TAB PO SCH ×2 (09:17→17:17)
[2020-07-03] MEDS: DOCUSATE SODIUM 100 MG CAP PO SCH ×3 (09:17→20:46)
[2020-07-03] MEDS: FUROSEMIDE 20 MG TAB PO SCH (09:18)
[2020-07-03] MEDS: ATORVASTATIN 40 MG TAB PO SCH (09:18)
[2020-07-03] MEDS: NYSTATIN SUSP 500,000 U/5 ML UDC PO SCH ×4 (09:19→20:46)
[2020-07-03] MEDS: CLOPIDOGREL BISULFATE 75 MG TAB PO SCH (09:20)
[2020-07-03] MEDS: METOPROLOL SUCC 25MG EXT REL TAB PO SCH ×2 (09:20→20:45)
[2020-07-03] MEDS: FAMOTIDINE 20 MG TAB PO SCH (09:20)
[2020-07-03] MEDS: CHOLECALCIFEROL 1,000 UNITS 25 MCG TAB PO SCH (09:20)
[2020-07-03] MEDS: lisinopril 2.5 MG TAB PO SCH (09:21)
[2020-07-03] MEDS: ZINC SULFATE 220 MG CAPSULE PO SCH (09:21)
[2020-07-03] MEDS: POLYETHYLENE (MIRALAX) 17 GM PACK PO SCH (10:30)
--- NOTE | 2020-07-03 17:35 | Hospitalist Progress Note ---
Date of Service July 03, 2020 Assessment & Plan (1) Leukocytosis: Postoperative wound infection-managed in collaboration with vascular surgery and ID recommendation-[place]A S/[place] [facility] [place] treated for cellulitis/myositis of the stump and DCed on Jun 17 and got readmitted from Rehab currently -Femur CT:There is postoperative change consistent with above knee amputation. No osseous abnormality is identified. There is an 8.5 cm complex fluid collection identified around the distal femoral resection site. This likely represents a postoperative seroma/liquefied hematoma. The sterility cannot be assessed by CT and abscess would be impossible to exclude. Additional loculated fluid and a possible bone fragment are present within the distal soft tissues at the resection stump. There are right femoral artery stents. These appear thrombosed. There is marked rectal wall thickening and edema with perirectal inflammation. Correlate clinically for evidence of proctitis. If clinically warranted this could be further assessed with colonoscopy. -No open wound or drainage. -Prior Hospitalist discussed with vascular surgery in [place] Dr. Ashwin Mosqueda: Who do not think it as abscess given no evidence of free air or external movement after sinonasal surgery -Continue IV vancomycin, Zosyn -Was on cefepime prior to admission -Continue wound care -Needs follow-up with vascular surgery upon discharge -Blood Cx: No growth to date -R knee Wound Cx from 05/19/20: Pseudomonas, Klebsiella, group C beta strep -Consider transitioning continue cefepime, doxycycline -We consider to discuss with ID and make necessary changes to antibiotics. -Leukocytosis normalized Hypokalemia Replete electrolytes as needed (2) Unilateral complete AKA: As above PT/OT (3) Cerebrovascular disease: PAD continue aspirin, Plavix, Lipitor (4) Troponin level elevated: Mildly elevated Unlikely ACS No acute symptoms (5) CAD in [place] artery: Continue aspirin, Lipitor, Plavix (6) DM type 2 (diabetes mellitus, type 2): SSI Monitor BGs (7) Peripheral vascular disease: (8) Chronic systolic heart failure: stable DVT Px: Heparin SQ Code Status Full Code Admission and Anticipated Discharge Date Admission Date: June 30, 2020 Subjective Patient is seen and examined at bedside States right amputated stump pain is better today Offers no other complaints Denies chest pain, shortness of breath, dizziness, nausea, abdominal pain Review of Systems Review of Systems: All systems reviewed & are unremarkable except as noted in HPI & below Physical Exam Physical Exam: Physical Exam: Vitals signs as noted above General Appearance:Moderately built and nourished, no apparent distress Head: normocephalic, Atraumatic Eyes: normal inspection, EOMI Neck: supple, Trachea midline Respiratory/Chest: Normal breath sounds, CTA Cardiovascular: S1, S2, + murmur Abdomen/GI:Soft, Non tender, Bowel sounds present Extremities/Musculoskelatal:normal inspection, B/L AKA, Right AKA Stump:+ sutures, swelling, tender, No erythema Neurologic/Psych:AAOX3, grossly no focal neurological deficits Skin: normal color, warm Results & Data Results & Data ([facility]) Vital Signs (Past 12 Hours) Vital Signs Temp Pulse Pulse Resp BP Pulse Ox 07/03/20 15:26 36.7 C 74 18 147/73 H 96 07/03/20 11:45 36.6 C 72 18 135/71 99 07/03/20 07:45 36.7 C 70 16 148/77 H 97 07/03/20 07:06 64 Laboratory Results Short CBC 07/03/20 Range/Units 07:09 WBC 9.26 (4.8-10.8) K/uL Hgb 10.6 L (14.0-18.0) g/dL Hct 32.1 L (42-52) % Plt Count 286 (130-400) K/uL BMP 07/03/20 07:09 Sodium 143 Potassium 3.1 L Chloride 112 H Carbon Dioxide 25 BUN 18 Creatinine 0.79 Glucose 117 H Calcium 8.8 Cardiac Enzymes 07/03/20 Range/Units 07:09 Total Creatine Kinase 110 (39-308) U/L (1) DM type 2 (diabetes mellitus, type 2) Diabetes mellitus halfway insulin use: with exterminator termite use Diabetes mellitus complication status: with neurologic complications Diabetes mellitus complication detail: with unspecified neuropathy Qualified Code(s): E11.40 - Type 2 diabetes mellitus with diabetic neuropathy, unspecified; Z79.4 - long term acute care registered nurse (current) use of insulin
[2020-07-03] MEDS: INSULIN GLARGINE SOLOSTAR 100 UNITS/ML 3 ML PEN SQ SCH (20:45)
[2020-07-04] MEDS: PIPERACILLIN/TAZOBACTAM 3.375 GM in DEXTROSE 5% 100 ML IV SCH ×3 (03:48→20:13)
[2020-07-04] MEDS ORDERED: VANCOMYCIN TROUGH ONE (05:30)
[2020-07-04] MEDS: VANCOMYCIN HCL 1,000 MG in SODIUM CHLORIDE 0.9% 250 ML IV SCH (06:29)
[2020-07-04 06:53] LABS: BUN Creatinine Ratio 16.4 (10-20); Calcium 8.2 mg/dl (8.5-10.1); Creatinine Clr Calc Pharmacy 115.2 ml/min; Est GFR (African American) 115.3; Est GFR (Non-African American) 99.5; Magnesium 1.8 mg/dl (1.8-2.4); Potassium 2.9 mmol/L (3.5-5.1)
--- NOTE | 2020-07-04 09:02 | Pharmacy Report ---
Pharmacy Abx Dose Short Note - Date of Service July 04, 2020 - Assessment & Plan Assessment 64 year old M receiving vancomycin/Zosyn for treatment of stump infection Day # 5 of antimicrobial therapy. Plan Vancomycin * Trough level of 21.6 mcg/mL is supratherapeutic * Change to 1250 mg IV every 18 hours (wait 4 hours to allow trough to drop to therapeutic level before starting new dose) * Goal trough level for cellulitis : 15 to 20 mcg/mL * Trough ordered for: 07/06/20 prior to 1600 dose Pharmacy will continue to follow and will adjust dose/frequency as necessary. Thank you.
[2020-07-04] MEDS: CHOLECALCIFEROL 1,000 UNITS 25 MCG TAB PO SCH (09:29)
[2020-07-04] MEDS: FUROSEMIDE 20 MG TAB PO SCH (09:30)
[2020-07-04] MEDS: lisinopril 2.5 MG TAB PO SCH (09:30)
[2020-07-04] MEDS ORDERED: POTASSIUM CHLORIDE CRTAB 20 MEQ TABCR PO ONE (09:30)
[2020-07-04] MEDS: ATORVASTATIN 40 MG TAB PO SCH (09:30)
[2020-07-04] MEDS ORDERED: POTASSIUM CHLORIDE 40 MEQ in SODIUM CHLORIDE 0.9% 1000ML 1,000 ML IV ONE (09:30)
[2020-07-04] MEDS: ASCORBIC ACID 500 MG TAB PO SCH ×2 (09:31→16:42)
[2020-07-04] MEDS: ZINC SULFATE 220 MG CAPSULE PO SCH (09:31)
[2020-07-04] MEDS: FAMOTIDINE 20 MG TAB PO SCH (09:31)
[2020-07-04] MEDS: INSULIN ASPART 100 UNITS/ML 3 ML PEN SC SCH ×4 (09:32→20:32)
[2020-07-04] MEDS: NYSTATIN SUSP 500,000 U/5 ML UDC PO SCH ×4 (09:33→20:13)
[2020-07-04] MEDS: HEPARIN SOD 5,000 UNIT/0.5 ML VIAL SQ SCH ×2 (09:34→20:14)
[2020-07-04] MEDS: ASPIRIN 81 MG ECTAB PO SCH (09:34)
[2020-07-04] MEDS: DOCUSATE SODIUM 100 MG CAP PO SCH ×3 (09:34→20:13)
[2020-07-04] MEDS: CLOPIDOGREL BISULFATE 75 MG TAB PO SCH (09:34)
[2020-07-04] MEDS: METOPROLOL SUCC 25MG EXT REL TAB PO SCH ×2 (09:34→20:34)
[2020-07-04] MEDS: POLYETHYLENE (MIRALAX) 17 GM PACK PO SCH (11:59)
--- NOTE | 2020-07-04 20:10 | Hospitalist Progress Note ---
Date of Service July 04, 2020 Assessment & Plan (1) Leukocytosis: Postoperative wound infection-managed in collaboration with vascular surgery and ID recommendation-[place] [facility] [place] treated for cellulitis/myositis of the stump and DCed on Jun 17 and got readmitted from Rehab currently -Femur CT:There is postoperative change consistent with above knee amputation. No osseous abnormality is identified. There is an 8.5 cm complex fluid collection identified around the distal femoral resection site. This likely represents a postoperative seroma/liquefied hematoma. The sterility cannot be assessed by CT and abscess would be impossible to exclude. Additional loculated fluid and a possible bone fragment are present within the distal soft tissues at the resection stump. There are right femoral artery stents. These appear thrombosed. There is marked rectal wall thickening and edema with perirectal inflammation. Correlate clinically for evidence of proctitis. If clinically warranted this could be further assessed with colonoscopy. -No open wound or drainage. -Prior Hospitalist discussed with vascular surgery in [place] Dr. Ashwin Mosqueda: Who do not think it as abscess given no evidence of free air or external movement after sinonasal surgery -Continue IV vancomycin, Zosyn for now -Was on cefepime prior to admission -Continue wound care -Needs follow-up with vascular surgery upon discharge -Blood Cx: No growth to date -R knee Wound Cx from 05/19/20: Pseudomonas, Klebsiella, group C beta strep -Appreciate ID input -Will recheck inflammatory markers in AM -Plan to DC Abx as able -Needs follow up with wound, weekly CRP off antibiotics. Hypokalemia Replete electrolytes as needed Diarrhea Check Stool for C diff (2) Unilateral complete AKA: As above PT/OT (3) Cerebrovascular disease: PAD continue aspirin, Plavix, Lipitor (4) Troponin level elevated: Mildly elevated Unlikely ACS No acute symptoms (5) CAD in [place] artery: Continue aspirin, Lipitor, Plavix (6) DM type 2 (diabetes mellitus, type 2): SSI Monitor BGs (7) Peripheral vascular disease: (8) Chronic systolic heart failure: stable DVT Px: Heparin SQ Code Status Full Code Admission and Anticipated Discharge Date Admission Date: June 30, 2020 Subjective Patient is seen and examined at bedside Less stump pain today No new complaints Stump swelling improving Discussed with ID today Denies chest pain, shortness of breath, dizziness, nausea, abdominal pain Offers no other complaints Review of Systems Review of Systems: All systems reviewed & are unremarkable except as noted in HPI & below Physical Exam Physical Exam: Physical Exam: Vitals signs as noted above General Appearance:Moderately built and nourished, no apparent distress Head: normocephalic, Atraumatic Eyes: normal inspection, EOMI Neck: supple, Trachea midline Respiratory/Chest: Normal breath sounds, CTA Cardiovascular: S1, S2, + murmur Abdomen/GI:Soft, Non tender, Bowel sounds present Extremities/Musculoskelatal:normal inspection, B/L AKA, Right AKA Stump:+ sutures, swelling, tender, No erythema Neurologic/Psych:AAOX3, grossly no focal neurological deficits Skin: normal color, warm Results & Data Results & Data ([facility]) Vital Signs (Past 12 Hours) Vital Signs Temp Pulse Pulse Resp BP BP Pulse Ox 07/04/20 16:19 78 07/04/20 15:09 36.7 C 85 17 143/68 H 97 07/04/20 14:27 75 07/04/20 11:20 36.7 C 76 16 112/63 93 Laboratory Results [facility] 07/04/20 05:20 Sodium 141 Potassium 2.9 L Chloride 108 H Carbon Dioxide 26 BUN 11 Creatinine 0.68 Glucose 102 H Calcium 8.2 L (1) DM type 2 (diabetes mellitus, type 2) Diabetes mellitus nursing home insulin use: with nursing home use Diabetes mellitus complication status: with neurologic complications Diabetes mellitus complication detail: with unspecified neuropathy Qualified Code(s): E11.40 - Type 2 diabetes mellitus with diabetic neuropathy, unspecified; Z79.4 - moth exterminator (current) use of insulin
[2020-07-04] MEDS: INSULIN GLARGINE SOLOSTAR 100 UNITS/ML 3 ML PEN SQ SCH (20:33)
[2020-07-05] MEDS ORDERED: VANCOMYCIN HCL 1,250 MG in SODIUM CHLORIDE 0.9% 250 ML IV SCH (04:00)
[2020-07-05] MEDS: PIPERACILLIN/TAZOBACTAM 3.375 GM in DEXTROSE 5% 100 ML IV SCH (05:17)
[2020-07-05 06:30] LABS: Hematocrit (blood only) 33.1 % (42-52); Mean Corpuscular Hemoglobin 31.6 pg (25-34); Mean Corpuscular Hgb Conc 33.2 g/dL (32-36); Mean Corpuscular Volume 95.1 fL (80-100); Mean Platelet Volume 10.1 fL (7.4-10.4); Platelet Count 307 K/uL (130-400); RDW Coefficient of Variation 15.8 % (11.5-14.5); RDW Standard Deviation 54.5 fL (36.4-46.3); Red Blood Count 3.48 M/uL (4.7-6.1); White Blood Count 9.34 K/uL (4.8-10.8)
[2020-07-05 07:02] LABS: BUN Creatinine Ratio 13.6 (10-20); Calcium 8.2 mg/dl (8.5-10.1); Creatinine Clr Calc Pharmacy 128.1 ml/min; Est GFR (African American) 120.6; Est GFR (Non-African American) 104.1; Magnesium 1.7 mg/dl (1.8-2.4); Potassium 2.9 mmol/L (3.5-5.1)
[2020-07-05 07:06] LABS: C Reactive Protein 1.37 mg/dl (0-0.29)
[2020-07-05] MEDS: INSULIN ASPART 100 UNITS/ML 3 ML PEN SC SCH ×4 (08:07→21:13)
[2020-07-05] MEDS: ASCORBIC ACID 500 MG TAB PO SCH ×2 (08:08→17:19)
[2020-07-05] MEDS: lisinopril 2.5 MG TAB PO SCH (08:08)
[2020-07-05] MEDS: FAMOTIDINE 20 MG TAB PO SCH (08:08)
[2020-07-05] MEDS: ATORVASTATIN 40 MG TAB PO SCH (08:08)
[2020-07-05] MEDS: METOPROLOL SUCC 25MG EXT REL TAB PO SCH ×2 (08:08→21:12)
[2020-07-05] MEDS: CLOPIDOGREL BISULFATE 75 MG TAB PO SCH (08:08)
[2020-07-05] MEDS: ASPIRIN 81 MG ECTAB PO SCH (08:08)
[2020-07-05] MEDS: NYSTATIN SUSP 500,000 U/5 ML UDC PO SCH ×4 (08:09→21:11)
[2020-07-05] MEDS: ZINC SULFATE 220 MG CAPSULE PO SCH (08:09)
[2020-07-05] MEDS: HEPARIN SOD 5,000 UNIT/0.5 ML VIAL SQ SCH ×2 (08:09→21:12)
[2020-07-05] MEDS: CHOLECALCIFEROL 1,000 UNITS 25 MCG TAB PO SCH (08:09)
[2020-07-05] MEDS: FUROSEMIDE 20 MG TAB PO SCH ×2 (08:09→08:16)
[2020-07-05] MEDS: DOCUSATE SODIUM 100 MG CAP PO SCH ×3 (08:15→21:14)
[2020-07-05] MEDS ORDERED: MAGNESIUM SULFATE / D5W 1 GM/100 ML BAG IV ONE (08:30)
[2020-07-05] MEDS: POTASSIUM CHLORIDE / WTR 10 MEQ/100 ML PLCT IV SCH ×2 (08:35→09:33)
[2020-07-05] MEDS: MAGNESIUM CHLORIDE 64MG DELAYED REL TAB PO SCH ×2 (08:39→21:11)
[2020-07-05] MEDS: POTASSIUM CHLORIDE CRTAB 20 MEQ TABCR PO SCH ×2 (09:33→21:14)
[2020-07-05] MEDS: POLYETHYLENE (MIRALAX) 17 GM PACK PO SCH (10:50)
--- NOTE | 2020-07-05 18:35 | Hospitalist Progress Note ---
Date of Service July 05, 2020 Assessment & Plan (1) Leukocytosis: Postoperative wound infection-managed in collaboration with vascular surgery and ID recommendation-POA S/P Right AKA on 06/03/2020 at [facility] [place] Recently treated for cellulitis/myositis of the stump and DCed on Jun 17 and got readmitted from Rehab currently -Femur CT:There is postoperative change consistent with above knee amputation. No osseous abnormality is identified. There is an 8.5 cm complex fluid collection identified around the distal femoral resection site. This likely represents a postoperative seroma/liquefied hematoma. The sterility cannot be assessed by CT and abscess would be impossible to exclude. Additional loculated fluid and a possible bone fragment are present within the distal soft tissues at the resection stump. There are right femoral artery stents. These appear thrombosed. There is marked rectal wall thickening and edema with perirectal inflammation. Correlate clinically for evidence of proctitis. If clinically warranted this could be further assessed with colonoscopy. -No open wound or drainage. -Prior Hospitalist discussed with vascular surgery in [place] Dr. Ashwin Mosqueda: Who do not think it as abscess given no evidence of free air or external movement after sinonasal surgery -Received IV vancomycin, Zosyn for 6 days -Was on cefepime prior to admission -Continue wound care -Needs follow-up with vascular surgery/ID upon discharge -Blood Cx: No growth to date -R knee Wound Cx from 05/19/20: Pseudomonas, Klebsiella, group C beta strep -Appreciate ID input--Advised to Discontinue antibiotics and monitor inflammatory markers weekly off antibiotics -CRP trended down Hypokalemia Hypomagnesemia Replete electrolytes as needed Diarrhea Check Stool for C diff if recurrence of diarrhea Currently denies diarrhea (2) Unilateral complete AKA: As above PT/OT (3) Cerebrovascular disease: PAD continue aspirin, Plavix, Lipitor (4) Troponin level elevated: Mildly elevated Unlikely ACS No acute symptoms (5) CAD in [place] artery: Continue aspirin, Lipitor, Plavix (6) DM type 2 (diabetes mellitus, type 2): SSI Monitor BGs (7) Peripheral vascular disease: (8) Chronic systolic heart failure: stable DVT Px: Heparin SQ Code Status Full Code Disposition Plan to discharge back to Rehab as able Admission and Anticipated Discharge Date Admission Date: June 30, 2020 Subjective Patient is seen and examined at bedside States feeling well Denies diarrhea Denies any stump pain Denies chest pain, dyspnea, dizziness, nausea, abdominal pain Offers no other complaints Review of Systems Review of Systems: All systems reviewed & are unremarkable except as noted in HPI & below Physical Exam Physical Exam: Physical Exam: Vitals signs as noted above General Appearance:Moderately built and nourished, no apparent distress Head: normocephalic, Atraumatic Eyes: normal inspection, EOMI Neck: supple, Trachea midline Respiratory/Chest: Normal breath sounds, CTA Cardiovascular: S1, S2, + murmur Abdomen/GI:Soft, Non tender, Bowel sounds present Extremities/Musculoskelatal:normal inspection, B/L AKA, Right AKA Stump:+ sutures, swelling, No erythema Neurologic/Psych:AAOX3, grossly no focal neurological deficits Skin: normal color, warm Results & Data Results & Data ([facility]) Vital Signs (Past 12 Hours) Vital Signs Temp Pulse Pulse Resp BP Pulse Ox 07/05/20 16:03 36.9 C 73 20 116/65 98 07/05/20 16:00 79 07/05/20 11:43 36.8 C 77 18 145/76 H 97 07/05/20 08:00 73 07/05/20 07:15 37.1 C 75 16 143/71 H 98 Laboratory Results Short CBC 07/05/20 Range/Units 06:00 WBC 9.34 (4.8-10.8) K/uL Hgb 11.0 L (14.0-18.0) g/dL Hct 33.1 L (42-52) % Plt Count 307 (130-400) K/uL BMP 07/05/20 06:00 Sodium 140 Potassium 2.9 L Chloride 108 H Carbon Dioxide 26 BUN 8 Creatinine 0.61 Glucose 105 H Calcium 8.2 L (1) DM type 2 (diabetes mellitus, type 2) Diabetes mellitus intermission coordinator insulin use: with detention use Diabetes mellitus complication status: with neurologic complications Diabetes mellitus compli cation detail: with unspecified neuropathy Qualified Code(s): E11.40 - Type 2 diabetes mellitus with diabetic neuropathy, unspecified; Z79.4 - terminal computer operator (current) use of insulin
[2020-07-05] MEDS: INSULIN GLARGINE SOLOSTAR 100 UNITS/ML 3 ML PEN SQ SCH (21:12)
[2020-07-06 07:35] LABS: BUN Creatinine Ratio 11.1 (10-20); Calcium 8.7 mg/dl (8.5-10.1); Creatinine Clr Calc Pharmacy 126.3 ml/min; Est GFR (African American) 119.8; Est GFR (Non-African American) 103.4; Potassium 3.3 mmol/L (3.5-5.1)
[2020-07-06] MEDS: MAGNESIUM CHLORIDE 64MG DELAYED REL TAB PO SCH (08:19)
[2020-07-06] MEDS: METOPROLOL SUCC 25MG EXT REL TAB PO SCH (08:19)
[2020-07-06] MEDS: FUROSEMIDE 20 MG TAB PO SCH (08:20)
[2020-07-06] MEDS: ATORVASTATIN 40 MG TAB PO SCH (08:20)
[2020-07-06] MEDS: CLOPIDOGREL BISULFATE 75 MG TAB PO SCH (08:21)
[2020-07-06] MEDS: FAMOTIDINE 20 MG TAB PO SCH (08:21)
[2020-07-06] MEDS: ASPIRIN 81 MG ECTAB PO SCH (08:23)
[2020-07-06] MEDS: lisinopril 2.5 MG TAB PO SCH (08:23)
[2020-07-06] MEDS: CHOLECALCIFEROL 1,000 UNITS 25 MCG TAB PO SCH (08:23)
[2020-07-06] MEDS: ZINC SULFATE 220 MG CAPSULE PO SCH (08:23)
[2020-07-06] MEDS: ASCORBIC ACID 500 MG TAB PO SCH (08:24)
[2020-07-06] MEDS: NYSTATIN SUSP 500,000 U/5 ML UDC PO SCH ×2 (08:27→13:12)
[2020-07-06] MEDS: HEPARIN SOD 5,000 UNIT/0.5 ML VIAL SQ SCH (08:34)
[2020-07-06] MEDS: DOCUSATE SODIUM 100 MG CAP PO SCH (08:39)
[2020-07-06] MEDS: INSULIN ASPART 100 UNITS/ML 3 ML PEN SC SCH ×2 (08:42→13:10)
[2020-07-06] MEDS: HYDROmorphone INJ 1 MG/ML SYRINGE IV PRN (10:16)
--- NOTE | 2020-07-06 11:07 | Hospitalist Progress Note ---
Date of Service July 06, 2020 Assessment & Plan (1) Leukocytosis: Postoperative wound infection-managed in collaboration with vascular surgery and ID recommendation-POA S/P Right [place]A on 06/03/2020 at [facility] [place] [facility] [place] Recently treated for cellulitis/myositis of the stump and DCed on Jun 17 and got readmitted from Rehab currently -Femur CT:There is postoperative change consistent with above knee amputation. No osseous abnormality is identified. There is an 8.5 cm complex fluid collection identified around the distal femoral resection site. This likely represents a postoperative seroma/liquefied hematoma. The sterility cannot be assessed by CT and abscess would be impossible to exclude. Additional loculated fluid and a possible bone fragment are present within the distal soft tissues at the resection stump. There are right femoral artery stents. These appear thrombosed. There is marked rectal wall thickening and edema with perirectal inflammation. Correlate clinically for evidence of proctitis. If clinically warranted this could be further assessed with colonoscopy. -No open wound or drainage. -Prior Hospitalist discussed with vascular surgery in [place] Dr. Ashwin Mosqueda: Who do not think it as abscess given no evidence of free air or external movement after sinonasal surgery -Received IV vancomycin, Zosyn for 6 days -Was on cefepime prior to admission -Continue wound care -Needs follow-up with vascular surgery/ID upon discharge -Blood Cx: No growth to date -R knee Wound Cx from 05/19/20: Pseudomonas, Klebsiella, group C beta strep -Appreciate ID input--Advised to Discontinue antibiotics and monitor inflammatory markers weekly off antibiotics -CRP trended down -Plan to discharge back to rehab facility today -Needs to monitor for fever, wound infection, weekly CRP for next month while off antibiotics as per ID. Hypokalemia Hypomagnesemia Replete electrolytes as needed Diarrhea Check Stool for C diff if recurrence of diarrhea Currently denies diarrhea (2) Unilateral complete AKA: As above PT/OT (3) Cerebrovascular disease: PAD continue aspirin, Plavix, Lipitor (4) Troponin level elevated: Mildly elevated Unlikely ACS No acute symptoms (5) CAD in [place] artery: Continue aspirin, Lipitor, Plavix (6) DM type 2 (diabetes mellitus, type 2): SSI Monitor BGs (7) Peripheral vascular disease: (8) Chronic systolic heart failure: stable DVT Px: Heparin SQ Code Status Full Code Disposition Plan to discharge back to Rehab facility today Admission and Anticipated Discharge Date Admission Date: June 30, 2020 Subjective Patient is seen and examined at bedside No new complaints Denies any stump pain Afebrile, off antibiotics Plan to discharge to rehab facility today Denies any recurrence of diarrhea Also denies chest pain, dyspnea, dizziness, nausea, abdominal pain Review of Systems Review of Systems: All systems reviewed & are unremarkable except as noted in HPI & below Physical Exam Physical Exam: Physical Exam: Vitals signs as noted above General Appearance:Moderately built and nourished, no apparent distress Head: normocephalic, Atraumatic Eyes: normal inspection, EOMI Neck: supple, Trachea midline Respiratory/Chest: Normal breath sounds, CTA Cardiovascular: S1, S2, + murmur Abdomen/GI:Soft, Non tender, Bowel sounds present Extremities/Musculoskelatal:normal inspection, B/L AKA, Right AKA Stump:+ sutures, swelling, No erythema in dressing Neurologic/Psych:AAOX3, grossly no focal neurological deficits Skin: normal color, warm Results & Data Results & Data ([facility]) Vital Signs (Past 12 Hours) Vital Signs Temp Pulse Pulse Resp BP BP Pulse Ox 07/06/20 08:04 91 H 07/06/20 07:37 36.9 C 83 18 129/68 99 07/06/20 04:00 36.6 C 78 20 123/67 95 07/06/20 00:19 37.1 C 84 20 132/86 94 07/05/20 23:50 37.1 C 87 17 123/70 97 07/05/20 23:32 84 Laboratory Results [facility] 07/06/20 05:57 Sodium 140 Potassium 3.3 L Chloride 109 H Carbon Dioxide 23 BUN 7 Creatinine 0.62 Glucose 77 Calcium 8.7 (1) DM type 2 (diabetes mellitus, type 2) Diabetes mellitus alf insulin use: with heel brusher use Diabetes mellitus complication status: with neurologic complications Diabetes mellitus complication detail: with unspecified neuropathy Qualified Code(s): E11.40 - Type 2 diabetes mellitus with diabetic neuropathy, unspecified; 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
--- NOTE | 2020-07-06 11:21 | Discharge Summary ---
Date of Service July 06, 2020 Admission HPI Per Admitting Provider CHIEF COMPLAINT: Leukocytosis. HISTORY OF PRESENT ILLNESS: This is a 64-year-old male with past medical history significant for CAD, CHF with EF 35%, type 2 diabetes, bilateral above-knee amputations, hyperlipidemia, pulmonary emphysema, peripheral vascular disease, history of CVA, GERD. The patient was admitted to the hospital on 05/18/2020 with worsening infection of the right lower extremity. There was plan for right above-knee amputation, but at that time, he developed non-ST elevated RI and echo showed EF of 35%, he was thought to be high risk for cardiac procedure as well as surgical procedures and was transferred to [place] on 06/01/2020. At [place] 06/02/2020, cardiac catheterization was done which showed severe coronary artery disease with 90% stenosis of the left main extending into trifurcation of the LAD and also severe multivessel disease and it was felt that the patient's coronary artery disease was inoperable and medical management was recommended and right AKA was performed on discharged with home health services and again patient was readmitted to [facility] on 06/12/2020 with confusion and hyperglycemia, treated with vancomycin, and Rocephin and also received Lasix for congestion. ID recommended 2 weeks of intravenous cefepime and was discharged to [facility]. Again he was brought in today because of elevated leukocytosis. The patient has been resting comfortably, hemodynamically stable. Denies complaints of pain in the right above knee amputation site. There is no drainage or erythema seen. No fever, no chills, no chest pain, no shortness of breath, no cough, no headache, no blurred vision, no runny nose, no sore throat, no difficulty swallowing. Appetite is okay. No nausea, no abdominal pain. Normal bowel and bladder movements. In the ER, CAT scan of the right lower extremity was done which showed some hematoma, but no abscess. ER physician called supervisor production department vascular surgeon at [place] and was advised because of there is no abscess,to observe here and treat with antibiotics for now. Admission Exam Per Admitting Provider PHYSICAL EXAMINATION: GENERAL: The patient is of moderate build, not in acute distress. VITAL SIGNS: Temperature 36.6, pulse 87, respiratory rate 19, blood pressure 101/61, oxygen 99% on room air. HEENT: Pupils equal, round, and reactive to light. Oral mucosa white lesions seen on the tounge. NECK: No neck masses. Neck supple. CARDIOVASCULAR: S1, S2 heard, regular rate and rhythm, no murmur, no gallop. RESPIRATORY SYSTEM: Normal AP diameter. No accessory muscle use. No wheezing, no crackles. ABDOMEN: Soft, bowel sounds present, nontender. No distention. CENTRAL NERVOUS SYSTEM: Cranial nerves II-XII grossly intact, nonfocal. EXTREMITIES: Bilateral above-knee amputation, right above knee amputation site, no drainage, no erythema seen. Mild tenderness on palpation. Principal Diagnosis Postoperative wound infection/Possible hematoma Hypokalemia Hypomagnesemia Discharge Data Allergies Allergy/AdvReac Type Severity Reaction Status Date / Time No Known Allergies Allergy Verified 06/29/20 16:55 Consultations 06/29/20 22:54 ED Decision to Admit Stat 06/30/20 02:18 Consult Case Management - Discharge Planning Routine 07/04/20 09:19 Consult Infectious Diseases Routine Procedures Performed Femur CT:There is postoperative change consistent with above knee amputation. No osseous abnormality is identified. There is an 8.5 cm complex fluid collection identified around the distal femoral resection site. This likely represents a postoperative seroma/liquefied hematoma. The sterility cannot be assessed by CT and abscess would be impossible to exclude. Additional loculated fluid and a possible bone fragment are present within the distal soft tissues at the resection stump. There are right femoral artery stents. These appear thrombosed. There is marked rectal wall thickening and edema with perirectal inflammation. Correlate clinically for evidence of proctitis. If clinically warranted this could be further assessed with colonoscopy. Ordered Studies 06/29/20 18:31 CT femur RT w con Stat Hospital Course (1) Leukocytosis: Postoperative wound infection-managed in collaboration with vascular surgery and ID recommendation-POA S/P Right AKA on 06/03/2020 at [facility] [place] Recently treated for cellulitis/myositis of the stump and DCed on Jun 17 and got readmitted from Rehab currently -Femur CT:There is postoperative change consistent with above knee amputation. No osseous abnormality is identified. There is an 8.5 cm complex fluid collection identified around the distal femoral resection site. This likely represents a postoperative seroma/liquefied hematoma. The sterility cannot be assessed by CT and abscess would be impossible to exclude. Additional loculated fluid and a possible bone fragment are present within the distal soft tissues at the resection stump. There are right femoral artery stents. These appear thrombosed. There is marked rectal wall thickening and edema with perirectal inflammation. Correlate clinically for evidence of proctitis. If clinically warranted this could be further assessed with colonoscopy. -No open wound or drainage. -Prior Hospitalist discussed with vascular surgery in [place] Dr. Ashwin Mosqueda: Who do not think it as abscess given no evidence of free air or external movement after sinonasal surgery -Received IV vancomycin, Zosyn for 6 days -Was on cefepime prior to admission -Continue wound care -Needs follow-up with vascular surgery/ID upon discharge -Blood Cx: No growth to date -R knee Wound Cx from 05/19/20: Pseudomonas, Klebsiella, group C beta strep -Appreciate ID input--Advised to Discontinue antibiotics and monitor inflammatory markers weekly off antibiotics -CRP trended down -Plan to discharge back to rehab facility today -Needs to monitor for fever, wound infection, weekly CRP for next month while off antibiotics as per ID. Hypokalemia Hypomagnesemia Replete electrolytes as needed Diarrhea Check Stool for C diff if recurrence of diarrhea Currently denies diarrhea (2) Unilateral complete AKA: As above PT/OT (3) Cerebrovascular disease: PAD continue aspirin, Plavix, Lipitor (4) Troponin level elevated: Mildly elevated Unlikely ACS No acute symptoms (5) CAD in [place] artery: Continue aspirin, Lipitor, Plavix (6) DM type 2 (diabetes mellitus, type 2): SSI Monitor BGs (7) Peripheral vascular disease: (8) Chronic systolic heart failure: stable DVT Px: Heparin SQ Code Status Full Code Disposition Plan to discharge back to Rehab facility today Total Time Total Time Spent Total Time Spent (In Minutes): 40 minutes Total Time Includes: Examination of the Patient, Discharge Planning, Medication Reconciliation, Communication With Other Providers and Other Discharge Plan Discharge Items Patient Disposition: Transfer Inpatient Rehab Fac Reason For Visit: LEUKOCYTOSIS Discharge Diagnosis: Postoperative wound infection/Possible hematoma Hypokalemia Hypomagnesemia Activity: Per Instructions section Exercise/Sports: Gradually increase as tolerated Non-emergency contact: Primary Care Provider and Surgeon Call non-emergency contact if: you have any medication questions, your symptoms worsen, your pain is not controlled, your pain is worsening, your pain is unusual for you, your pain is concerning for you, you have a fever and your wound has increased redness Follow-up/Referrals: Zion Moses MD [Primary Care Provider] - Dietitian Info: Minced and Moist Diet: Carb Consistent or DM2 Addtl Attending Provider Instructions: Follow-up with your primary care physician Dr. Antonio in 1 week upon discharge from rehab facility Follow-up with your vascular surgeon Dr. Ashwin Mosqueda at [facility], in 1-2 weeks for further evaluation of your wound. Get Blood Test (basic metabolic panel and magnesium levels in 3 days and follow- up with your physician at rehab facility.) to monitor for Hypokalemia Get weekly C-Reactive protein (CRP) for 4 weeks and follow-up with your physician as recommended by your infectious disease. Continue wound care until surgical site at rehab facility. Start taking potassium chloride 40 mg daily and magnesium chloride 64 mg twice a day for 7 more days. Further recommendations as per your physician. Seek immediate medical attention if your symptoms reoccur or worsen Pending Studies at Discharge: No Stand-Alone Forms: My [facility] Skilled Items Patient informed of condition?: Yes DNR: No Discharge Level of Care: Acute rehab Communicable Disease: No Discharge Prognosis: Improving Lines: None Urinary Catheter: No Medications and DC Order Prescriptions: New potassium chloride [Klor-Con M20] 20 mEq Tablet,Er Particles/Crystals 40 meq PO DAILY Qty: 7 RF: 0 magnesium chloride [Mag 64] 64 mg Tablet,Delayed Release (Dr/Ec) 64 mg PO BID Qty: 15 RF: 0 Continued aspirin 81 mg tablet,delayed release (DR/EC) 81 mg PO DAILY RF: 0 clopidogrel [Plavix] 75 mg tablet 75 mg PO DAILY RF: 0 Lantus U-100 Insulin 100 unit/mL solution 17 unit subcut QPM RF: 0 polyethylene glycol 3350 [Miralax] 17 gram/dose Powder 17 g PO QDL RF: 0 atorvastatin 80 mg Tablet 80 mg PO DAILY RF: 0 nystatin 100,000 unit/mL suspension 4 ml PO QID Qty: 160 RF: 0 famotidine 20 mg Tablet 20 mg PO DAILY RF: 0 ascorbic acid (vitamin C) 500 mg Tablet 500 mg PO BIDM RF: 0 Humulin R Regular U-100 Insuln 100 unit/mL Solution 1 sliding scale dose SUBCUT USEASDIRECTD RF: 0 cholecalciferol (vitamin D3) [Vitamin D3] 50 mcg (2,000 unit) Capsule 2,000 unit PO DAILY RF: 0 acetaminophen 325 mg Tablet 650 mg PO Q4H PRN (Reason: Pain) RF: 0 sennosides-docusate sodium [Senokot-S] 8.6-50 mg Tablet 1 tab PO QDL PRN (Reason: Constipation) RF: 0 docusate sodium 100 mg Capsule 100 mg PO TID RF: 0 zinc sulfate 220 mg Capsule 220 mg PO DAILY RF: 0 furosemide 20 mg tablet 20 mg PO DAILY RF: 0 metoprolol succinate 25 mg tablet extended release 24 hr 25 mg PO Q12H RF: 0 lisinopril 2.5 mg tablet 2.5 mg PO DAILY RF: 0 oxycodone 5 mg tablet See Rx Instructions .ROUTE .COMPLEX PRN (Reason: Pain) RF: 0 heparin (porcine) 5,000 unit/mL Syringe 5,000 unit SUBCUT Q12H RF: 0 DripDrop 305-175-70 mg Powder In Packet 0 ea PO QID RF: 0 Discontinued cefepime 2 gram recon soln 2 g IV Q12H Qty: 28 RF: 0 Discharge Orders: Discharge Order (Routine); Ordered 07/06/20 Ordered By: Cornelio Dunlap Admission Data Admit Date/Time: 06/30/20 00:07 Attending Provider: Cornelio Dunlap Admit Provider: Thomas Pratt Primary Care Provider: Zion Moses Other Providers: Thomas Pratt ; [facility] ; Ford Jacobsen ; Skip Vargas ; Jacob Rooney I. ; Hans Saavedra II ; Nazanin Nick ; Deep Siddiqui Other Interventions: Discharge Summary Assessment (RN) Last Done: 07/06/20 12:11
[2020-07-06] MEDS: POTASSIUM CHLORIDE CRTAB 20 MEQ TABCR PO SCH (11:42)
[2020-07-06] MEDS: POLYETHYLENE (MIRALAX) 17 GM PACK PO SCH (11:43)
[2020-07-06] MEDS ORDERED: VANCOMYCIN TROUGH ONE (15:30)
== END 2020-07-06 16:30 | DRG 565 ==
LOC: ED 15:55 → 2S 06-30 00:07 → SUATTDRO 06-30 00:07 → 2S 06-30 01:51 → 2N 07-03 01:57

== ENCOUNTER 2023-12-10 12:54 | Inpatient (IN) ==
--- NOTE | 2023-12-10 13:07 | XRay Report ---
XR chest 1V portable HISTORY: Chest pain, nonspecific COMPARISON: Chest 02/10/2022. FINDINGS: No pneumothorax. The cardiac silhouette remains mildly enlarged. There are calcifications w ithin the aortic knob. No definite pleural effusions. There is right greater than left interstitial/v ascular thickening consistent with mild asymmetric pulmonary edema. This has progressed in the interv al. Lumbar spinal fusion hardware is partially visualized. IMPRESSION: Interval development of mild asymmetric interstitial pulmonary edema. ACT 112: Negative or not required by law. Electronically signed by: Ladarius Whitney M.D. 12/10/2023 1:06 PM
[2023-12-10 13:13] LABS: Base Excess VBG 0.7 mEq/L; HCO3 VBG 25 mmol/L; Oxygen Saturation VBG 69.1 %; PCO2 VBG 40 mmHg (38-50); PO2 VBG 38 mmHg; pH VBG 7.41 (7.36-7.41)
[2023-12-10 13:17] LABS: Basophils # (auto) 0.05 K/uL (0.00-0.20); Basophils % (auto) 0.3 %; Hematocrit (blood only) 45.6 % (42.0-52.0); Hemoglobin 15.5 g/dl (14.0-18.0); Immature Granulocytes % (auto) 0.7 %; Lymphocytes # (auto) 0.93 K/uL (1.20-3.40); Lymphocytes % (auto) 6.1 %; Mean Corpuscular Hemoglobin 33.4 pg (25.0-34.0); Mean Corpuscular Volume 98.3 fL (80.0-100.0); Monocytes # (auto) 1.12 K/uL (0.11-0.59); Monocytes % (auto) 7.4 %; Neutrophils # (auto) 13.03 K/uL (1.40-6.50); Neutrophils % (auto) 85.5 %; Platelet Count 184 K/uL (130-400); RDW Coefficient of Variation 14.2 % (11.5-14.5); RDW Standard Deviation 51.7 fL (36.4-46.3); Red Blood Count 4.64 M/uL (4.70-6.10); White Blood Count 15.23 K/ul (4.8-10.8)
[2023-12-10 13:23] LABS: iSTAT Creatinine 1.7 mg/dl (0.6-1.3); iSTAT Ionized Calcium 1.21 mmol/l (1.12-1.32)
[2023-12-10 13:37] LABS: BUN Creatinine Ratio 24.9 (10-20); Calcium 9.8 mg/dl (8.6-10.3); Creatinine Clr Calc Pharmacy 25.5 ml/min; Est GFR (African American) 45.4 ml/min; Est GFR (Non-African American) 39.1 ml/min; Potassium 4.9 mmol/L (3.5-5.1)
[2023-12-10 13:44] LABS: Troponin I High Sensitivity 1580.9 pg/ml (0-20)
[2023-12-10 13:49] LABS: Partial Thromboplastin Ratio 1.1; Partial Thromboplastin Time 29 Seconds (21-31); Prothrombin Time 11.2 Seconds (9.0-12.0)
[2023-12-10 13:55] LABS: Influenza A virus by PCR Negative (Neg); Influenza B virus by PCR Negative (Neg); RSV by PCR Negative (Neg); SARS CoV2 RNA(COVID-19) Ceph NEGATIVE (Negative)
[2023-12-10] MEDS: FUROSEMIDE 40 MG/4 ML VIAL IV ONE (14:00)
[2023-12-10] MEDS: ALBUT/IPRATROP 3MG/0.5MG NEB 3 ML VIAL NEB STA (14:04)
--- NOTE | 2023-12-10 14:44 | History & Physical Report ---
Date of Service December 10, 2023 History of Present Illness Primary Care Provider: Zion Moses MD Allergies Allergy/AdvReac Type Severity Reaction Status Date / Time No Known Allergies Allergy Verified 06/21/23 15:11 Home Medications Medication Instructions Recorded Confirmed Type aspirin 81 mg tablet,delayed 81 mg PO QAM 04/30/20 12/10/23 History release clopidogrel 75 mg tablet (Plavix) 75 mg PO QAM 04/30/20 12/10/23 History ascorbic acid (vitamin C) 500 mg 500 mg PO QPM 06/29/20 12/10/23 History tablet cholecalciferol (vitamin D3) 50 2,000 unit PO QAM 06/29/20 12/10/23 History mcg (2,000 unit) capsule (Vitamin D3) famotidine 20 mg tablet 20 mg PO QAM 06/29/20 12/10/23 History furosemide 20 mg tablet 20 mg PO UD 06/29/20 12/10/23 History lisinopril 2.5 mg tablet 2.5 mg PO QAM 06/29/20 12/10/23 History metoprolol succinate 25 mg 12.5 mg PO BID 06/29/20 12/10/23 History tablet,extended release 24 hr empagliflozin 25 mg tablet 25 mg PO QAM 02/10/22 12/10/23 History (Jardiance) melatonin 10 mg tablet 10 mg PO HS 02/10/22 12/10/23 History pantoprazole 40 mg tablet,delayed 40 mg PO DAILY #30 tabs 02/11/22 12/10/23 Rx release (Protonix) dulaglutide 4.5 mg/0.5 mL 4.5 mg subcut WK 06/21/23 12/10/23 History subcutaneous pen injector (Trulicity) gabapentin 300 mg capsule 300 mg PO QID 06/21/23 12/10/23 History rosuvastatin 40 mg tablet 40 mg PO UD 12/10/23 12/10/23 History Past Med/Surg History Problem List (Updated 07/25/23 @ 00:07 by Background Daemon) Nonhealing nonsurgical wound Chronic systolic heart failure Hypokalemia Cerebrovascular disease CAD in [place] artery Hx NSTEMI 06/2020 Diabetic peripheral angiopathy Carotid artery disease S/P right CEA by Dr. Sheppard on 09/14/17. L Occluded carotid artery Emphysema of lung Dyslipidemia (Chronic) GERD (gastroesophageal reflux disease) (Chronic) DM type 2 (diabetes mellitus, type 2) (Chronic) Peripheral vascular disease (Chronic) Tobacco dependence (Chronic) Medical History NSTEMI (non-ST elevated myocardial infarction) MRSA infection Acute on chronic heart failure with reduced ejection fraction and diastolic dysfunction Altered mental status Leukocytosis Elevated troponin Sepsis COVID-19 ruled out Cerebrovascular disease Dyslipidemia Non-ST elevation (NSTEMI) myocardial infarction CHF (congestive heart failure) Echo 05/30/20 LVEF 35%. Discharge planning issues DVT prophylaxis Diabetes mellitus type 2 with complications Coronary artery disease Non-STEMI May 2020. Cath [facility] [place] 06/02/20- severe diffuse multi-vessel disease. 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 Sheppard on 09/14/17. L Occluded carotid artery Emphysema of lung PAD (peripheral artery disease) Tobacco dependence Peripheral vascular disease Dyslipidemia GERD (gastroesophageal reflux disease) History of CVA (cerebrovascular accident) H/O right basal ganglia stroke in 2011. Surgical History History of left-sided carotid endarterectomy Status post cardiac catheterization [facility] [place] 06/02/20- severe diffuse multi-vessel disease; medical management recommended Status post above-knee amputation of right lower extremity [facility] [place] 06/03/20 History of right below knee amputation 11/15/[address] Sheppard History of angioplasty of peripheral vessel L LEG left popliteal artery angioplasty and stent as left AT/peroneal/TP trunk angioplasty on 05/10/[address] Sheppard left AKA on 12/19/17 09/27/17 for angioplasty/stent of the left SFA, but noted to have a BK- popliteal occlusion (would need a left fem=>AT bypass). left common femoral endarterectomy with vein patch angioplasty and common femoral artery => anterior tibial artery bypass using non-reversed left great saphenous vein 10/20/2017. R LEG RSFA stent and, angioplasty of PT/peroneal artery 06/06/[address] Mosqueda S/P right TOMMIE/TP-trunk/peroneral/PT angioplasty by Dr. Mosqueda on 10/25/18. 02/2019 again prompted additional intervention He underwent bilateral common & external iliac artery stents (one 7 x 80 mm Everflex stent on each side) and right SFA/pop/TP-trunk angioplasty by Dr. Sheppard 04/03/19. 05/09/20 He underwent balloon angioplasty of right SFA/popliteal/TP-trunk/peroneral arteries and open amputation of the R 5th toe by Dr. Sheppard on 08/10/19. 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 History of spinal fusion "05/[address] Reeder" Family History Sister Myocardial infarction Other Family history non-contributory Denies family history of Ovarian cancer Prostate cancer Breast cancer Colorectal cancer Social History Smoking Status: Current every day smoker Tobacco Type: Cigarettes packs per day: 0.5; Cigarettes Per Day: 10; Second Hand Exposure: No; Do You Dip or Chew Tobacco: No; Hx Alcohol Use: No Hx Substance Use: No Preferred Language: Kyr[place]z Communication Ability: Effective Hotel Valet Attendant Required: No Beliefs That Will Affect Care: None marital status: Current Living Situation: Significant Other current occupational status: retired How many Children do You have: 1 How many Children do You have Comment: LOCAL SON THAT IS ABLE TO HELP. ALSO HAS SISTER WHO IS ABLE TO HELP NEEDED. Feels Safe at Home: Yes Diet: diabetic during the past year weight has: increased > 10 lbs Dental Care, Regularly: No Physical Activity Frequency: Does not Exercise Seatbelt Use: sometimes Sunscreen Use: No Assistive Devices: Denture - Upper, Denture - Lower, Glasses, Scooter/Electric Scooter and Wheelchair Results & Data Results & Data Vital Signs (Past 12 Hours) Vital Signs Temp Pulse Pulse Resp BP Pulse Ox O2 Del Method 12/10/23 14:06 110 H 38 H 98 12/10/23 14:05 110 H 38 H 98 BiPAP 12/10/23 13:30 117 H 33 H 94 BiPAP 12/10/23 13:30 117/71 BiPAP 12/10/23 13:12 118 H 12/10/23 13:11 12/10/23 13:11 94 BiPAP 12/10/23 13:06 117 H 38 H 97 12/10/23 13:04 39 H 12/10/23 13:04 BiPAP 12/10/23 13:04 BiPAP 12/10/23 13:04 37.2 C 118 H 39 H 112/72 96 BiPAP 12/10/23 13:03 117 H 33 H 95 BiPAP 12/10/23 13:03 112/74 BiPAP 12/10/23 13:02 116 H 32 H 97 BiPAP FiO2 12/10/23 14:06 40 12/10/23 14:05 40 12/10/23 13:30 12/10/23 13:30 12/10/23 13:12 12/10/23 13:11 40 12/10/23 13:11 12/10/23 13:06 40 12/10/23 13:04 12/10/23 13:04 12/10/23 13:04 12/10/23 13:04 12/10/23 13:03 12/10/23 13:03 12/10/23 13:02 Code Status & VTE Plan VTE Prophylaxis Plan VTE Prophylaxis will be ordered: Yes
--- NOTE | 2023-12-10 15:09 | Emergency Department Note ---
History of Present Illness General Chief Complaint: Chest Pain Stated Complaint: CHEST PAIN, SOB Source: patient and EMS History of Present Illness Provider Complaint: shortness of breath and chest pain Onset (ago): hour(s) (1) Severity: severe Relieved By: + oxygen, + bronchodilators and + upright position Exacerbated By: + lying flat Known history of: COPD and congestive heart failure Associated symptoms: + chest pain, + cough, + orthopnea and + chest congestion; no fever, no sputum production, no polydipsia, no hemoptysis, no nausea/vomiting or no abdominal pain Treatment prior to arrival: oxygen, bronchodilator (1 DuoNeb) and NIPPV (BiPAP by EMS) HPI Narrative: EMS reports that the patient's symptoms got better with BiPAP and DuoNeb. Related Data Home oxygen amount: none Home Medications Medication Instructions Recorded Confirmed Type aspirin 81 mg tablet,delayed 81 mg PO QAM 04/30/20 12/10/23 History release clopidogrel 75 mg tablet (Plavix) 75 mg PO QAM 04/30/20 12/10/23 History ascorbic acid (vitamin C) 500 mg 500 mg PO QPM 06/29/20 12/10/23 History tablet cholecalciferol (vitamin D3) 50 2,000 unit PO QAM 06/29/20 12/10/23 History mcg (2,000 unit) capsule (Vitamin D3) famotidine 20 mg tablet 20 mg PO QAM 06/29/20 12/10/23 History furosemide 20 mg tablet 20 mg PO UD 06/29/20 12/10/23 History lisinopril 2.5 mg tablet 2.5 mg PO QAM 06/29/20 12/10/23 History metoprolol succinate 25 mg 12.5 mg PO BID 06/29/20 12/10/23 History tablet,extended release 24 hr empagliflozin 25 mg tablet 25 mg PO QAM 02/10/22 12/10/23 History (Jardiance) melatonin 10 mg tablet 10 mg PO HS 02/10/22 12/10/23 History pantoprazole 40 mg tablet,delayed 40 mg PO DAILY #30 tabs 02/11/22 12/10/23 Rx release (Protonix) dulaglutide 4.5 mg/0.5 mL 4.5 mg subcut WK 06/21/23 12/10/23 History subcutaneous pen injector (Trulicity) gabapentin 300 mg capsule 300 mg PO QID 06/21/23 12/10/23 History rosuvastatin 40 mg tablet 40 mg PO UD 12/10/23 12/10/23 History Allergies Allergy/AdvReac Type Severity Reaction Status Date / Time No Known Allergies Allergy Verified 06/21/23 15:11 Past Med/Surg History Problem List (Updated 12/10/23 @ 15:21 by Yohannes Gaston MD) COPD exacerbation (Acute) CHF exacerbation (Acute) Hypoxia (Acute) Nonhealing nonsurgical wound Chronic systolic heart failure Hypokalemia Cerebrovascular disease CAD in [place] artery Hx NSTEMI 06/2020 Diabetic peripheral angiopathy Carotid artery disease S/P right CEA by Dr. Sheppard on 09/14/17. L Occluded carotid artery Emphysema of lung Dyslipidemia (Chronic) GERD (gastroesophageal reflux disease) (Chronic) DM type 2 (diabetes mellitus, type 2) (Chronic) Peripheral vascular disease (Chronic) Tobacco dependence (Chronic) Medical History NSTEMI (non-ST elevated myocardial infarction) MRSA infection Acute on chronic heart failure with reduced ejection fraction and diastolic dysfunction Altered mental status Leukocytosis Elevated troponin Sepsis COVID-19 ruled out Dyslipidemia Non-ST elevation (NSTEMI) myocardial infarction CHF (congestive heart failure) Echo 05/30/20 LVEF 35%. Discharge planning issues DVT prophylaxis Diabetes mellitus type 2 with complications Coronary artery disease Non-STEMI May 2020. Cath [facility] [place] 06/02/20- severe diffuse multi-vessel disease. 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 Surgical History History of left-sided carotid endarterectomy Status post cardiac catheterization [facility] [place] 06/02/20- severe diffuse multi-vessel disease; medical management recommended Status post above-knee amputation of right lower extremity [facility] [place] 06/03/20 History of right below knee amputation 11/15/[address] Sheppard History of angioplasty of peripheral vessel L LEG left popliteal artery angioplasty and stent as left AT/peroneal/TP trunk angioplasty on 05/10/[address] Sheppard left AKA on 12/19/17 09/27/17 for angioplasty/stent of the left SFA, but noted to have a BK- popliteal occlusion (would need a left fem=>AT bypass). left common femoral endarterectomy with vein patch angioplasty and common femoral artery => anterior tibial artery bypass using non-reversed left great saphenous vein 10/20/2017. R LEG RSFA stent and, angioplasty of PT/peroneal artery 06/06/[address] Mosqueda S/P right TOMMIE/TP-trunk/peroneral/PT angioplasty by Dr. Mosqueda on 10/25/18. 02/2019 again prompted additional intervention He underwent bilateral common & external iliac artery stents (one 7 x 80 mm Everflex stent on each side) and right SFA/pop/TP-trunk angioplasty by Dr. Sheppard 04/03/19. 05/09/20 He underwent balloon angioplasty of right SFA/popliteal/TP-trunk/peroneral arteries and open amputation of the R 5th toe by Dr. Sheppard on 08/10/19. 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 History of spinal fusion "05/[address] Reeder" Family History Sister Myocardial infarction Other Family history non-contributory Denies family history of Ovarian cancer Prostate cancer Breast cancer Colorectal cancer Social History Smoking Status: Current every day smoker Tobacco Type: Cigarettes packs per day: 0.5; Cigarettes Per Day: 10; Second Hand Exposure: No; Do You Dip or Chew Tobacco: No; Hx Alcohol Use: No Hx Substance Use: No Preferred Language: Yoruba Communication Ability: Effective Gas Torch Solderer Required: No Beliefs That Will Affect Care: None marital status: Current Living Situation: Significant Other current occupational status: retired How many Children do You have: 1 How many Children do You have Comment: LOCAL SON THAT IS ABLE TO HELP. ALSO HAS SISTER WHO IS ABLE TO HELP NEEDED. Feels Safe at Home: Yes Diet: diabetic during the past year weight has: increased > 10 lbs Dental Care, Regularly: No Physical Activity Frequency: Does not Exercise Seatbelt Use: sometimes Sunscreen Use: No Assistive Devices: Denture - Upper, Denture - Lower, Glasses, Scooter/Electric Scooter and Wheelchair Physical Exam 2 Vital Signs: Vital Signs - 24 hr 12/10/23 13:02 12/10/23 13:03 12/10/23 13:03 Temperature Temperature Source Pulse Rate 116 H 117 H Pulse Rate [Apical ] Pulse Rate from Sp O2 Sensor 116 H 116 H Respiratory Rate 32 H 33 H Respiratory Effort / Characteristics Respiratory Depth Respiratory Patter n Blood Pressure 112/74 Blood Pressure Skylar n 88 Pulse Oximetry 97 95 Oxygen Delivery Me thod BiPAP BiPAP BiPAP Fraction of Inspir ed Oxygen Sepsis Recent Feve r Within 48 Hours Sepsis New/Unexpla ined Change in Men stu Status Sepsis Action Take n by Nursing 12/10/23 13:04 12/10/23 13:04 12/10/23 13:04 Temperature 37.2 C Temperature Source Oral Pulse Rate 118 H Pulse Rate [Apical ] Pulse Rate from Sp O2 Sensor Respiratory Rate 39 H Respiratory Effort / Characteristics SOB on Exertion Respiratory Depth Normal Respiratory Patter n Blood Pressure 112/72 Blood Pressure Skylar n 85 Pulse Oximetry 96 Oxygen Delivery Me thod BiPAP BiPAP BiPAP Fraction of Inspir ed Oxygen Sepsis Recent Feve r Within 48 Hours No Sepsis New/Unexpla ined Change in Men stu Status N/A Sepsis Action Take n by Nursing Physician Notified 12/10/23 13:04 12/10/23 13:06 12/10/23 13:11 Temperature Temperature Source Pulse Rate 117 H Pulse Rate [Apical ] Pulse Rate from Sp O2 Sensor Respiratory Rate 39 H 38 H Respiratory Effort / Characteristics Spontaneous Short of Breath Respiratory Depth Normal Respiratory Patter n Tachypnea Blood Pressure Blood Pressure Skyl[place] n Pulse Oximetry 97 94 Oxygen Delivery Me thod BiPAP Fraction of Inspir ed Oxygen 40 Sepsis Recent Feve r Within 48 Hours Sepsis New/Unexpla ined Change in Men stu Status Sepsis Action Take n by Nursing 12/10/23 13:11 12/10/23 13:12 12/10/23 13:30 Temperature Temperature Source Pulse Rate 118 H Pulse Rate [Apical ] Pulse Rate from Sp O2 Sensor Respiratory Rate Respiratory Effort / Characteristics Respiratory Depth Respiratory Patter n Blood Pressure 117/71 Blood Pressure Skylar n 78 Pulse Oximetry Oxygen Delivery Me thod BiPAP Fraction of Inspir ed Oxygen 40 Sepsis Recent Feve r Within 48 Hours Sepsis New/Unexpla ined Change in Men stu Status Sepsis Action Take n by Nursing 12/10/23 13:30 12/10/23 14:05 12/10/23 14:06 Temperature Temperature Source Pulse Rate 117 H 110 H Pulse Rate [Apical ] 110 H Pulse Rate from Sp O2 Sensor 114 H Respiratory Rate 33 H 38 H 38 H Respiratory Effort / Characteristics Spontaneous Short of Breath Spontaneous Short of Breath Respiratory Depth Normal Respiratory Patter n Tachypnea Blood Pressure Blood Pressure Skylar n Pulse Oximetry 94 98 98 Oxygen Delivery Me thod BiPAP BiPAP Fraction of Inspir ed Oxygen 40 40 Sepsis Recent Feve r Within 48 Hours Sepsis New/Unexpla ined Change in Men stu Status Sepsis Action Take n by Nursing 12/10/23 15:00 Temperature Temperature Source Pulse Rate Pulse Rate [Apical ] Pulse Rate from Sp O2 Sensor 106 H Respiratory Rate Respiratory Effort / Characteristics Respiratory Depth Respiratory Patter n Blood Pressure Blood Pressure Skylar n Pulse Oximetry 97 Oxygen Delivery Me thod Fraction of Inspir ed Oxygen Sepsis Recent Feve r Within 48 Hours Sepsis New/Unexpla ined Change in Men stu Status Sepsis Action Take n by Nursing Physical Exam: Physical Exam GENERAL: Patient on BiPAP. HENT: Exam performed. - Head: Normocephalic and atraumatic. EYES: Conjunctivae and EOM are normal. Right eye exhibits no discharge. Left eye exhibits no discharge. No scleral icterus. NECK: Normal range of motion. Neck supple. No JVD present. CV: Normal rate, regular rhythm, normal heart sounds and intact distal pulses. There is no peripheral edema. Palpable radial pulses bue. PULM/CHEST: Diminished breath sounds bilaterally with inspiratory rales at the bases bilaterally. MUSC: Bilateral lower extremity amputations. ABD: The abdomen is soft. There is no tenderness. NEURO: Motor and sensation grossly intact. Course Course 1254: The patient was evaluated in room B1. A complete history and physical exam was performed Cardiac monitoring: An order was placed for continuous cardiac monitoring. The monitor shows a rate of 110 with sinus rhythm interpreted by me Patient continued on BiPAP. Chest x-ray conducted and chest x-ray viewed by me showed that the patient has cardiomegaly with cephalization. Continue BiPAP. 1400: Vital signs stable on BiPAP. Labs showed elevated troponin and BNP. Leukocytosis of 15. Patient be treated with Lasix. Continue BiPAP. VBG within normal limits. Patient be admitted to the [facility] hospitalist team. Administered Medications Discontinued Medications Albuterol (Albut/Ipratrop 3mg/0.5mg Neb 3 Ml Vial) 3 ml NEB NOW STA; Protocol Stop: 12/10/23 14:00 Last Admin: 12/10/23 14:04 Dose: 3 ml Documented By: SINDY Furosemide (Furosemide 40 Mg/4 Ml Vial) 40 mg IV ONE ONE Stop: 12/10/23 13:42 Last Admin: 12/10/23 14:00 Dose: 40 mg Documented By: YUNI Medical Decision Making Laboratory Data Attestation: I reviewed the patient's lab results. 12/10/23 13:03 12/10/23 13:03 Lab Results 12/10/23 12/10/23 12/10/23 Range/Units 13:03 13:03 13:09 WBC 15.23 H (4.8-10.8) K/ul RBC 4.64 L (4.70-6.10) M/uL Hgb 15.5 (14.0-18.0) g/dl POC Hgb 16.0 (14.0-18.0) g/dl Hct 45.6 (42.0-52.0) % POC Hct 47 (42-52) % MCV 98.3 (80.0-100.0) fL MCH 33.4 (25.0-34.0) pg MCHC 34.0 (32.0-36.0) g/dL RDW Std Deviation 51.7 H (36.4-46.3) fL RDW Coeff of Martin 14.2 (11.5-14.5) % Plt Count 184 (130-400) K/uL MPV 11.0 (9.4-12.4) fL Immature Gran % (Auto) 0.7 % Neut % (Auto) 85.5 % Lymph % (Auto) 6.1 % [place] % (Auto) 7.4 % Eos % (Auto) 0.0 % Baso % (Auto) 0.3 % Neut # (Auto) 13.03 H (1.40-6.50) K/uL Lymph # (Auto) 0.93 L (1.20-3.40) K/uL [place] # (Auto) 1.12 H (0.11-0.59) K/uL Eos # (Auto) 0.00 (0.00-0.50) K/uL Baso # (Auto) 0.05 (0.00-0.20) K/uL Immature Gran # (Auto) 0.10 (0.01-0.20) K/uL PT 11.2 (9.0-12.0) Seconds INR 1.0 (0.9-1.1) APTT 29 (21-31) Seconds PTT Ratio 1.1 VBG pH 7.41 (7.36-7.41) VBG pCO2 40 (38-50) mmHg VBG pO2 38 mmHg VBG HCO3 25 mmol/L VBG O2 Saturation 69.1 % VBG Base Excess 0.7 mEq/L POC Sodium 136 (135-144) mmol/L Sodium 135 L (136-145) mmol/L POC Potassium 5.0 (3.3-5.0) mmol/L Potassium 4.9 (3.5-5.1) mmol/L POC Chloride 104 (101-112) mmol/L Chloride 102 (98-107) mmol/L Carbon Dioxide 24 (21-32) mmol/L POC Total CO2 23 L (24-31) mmol/L Anion Gap 9 (3-11) POC Anion Gap 15.0 L (16-25) mmol/L POC BUN 39 H (7-18) mg/dl BUN 43 H (6-23) mg/dl Creatinine 1.73 H (0.6-1.4) mg/dl POC Creatinine 1.7 H (0.6-1.3) mg/dl Est Cr Clr Drug Dosing 25.5 ml/min Est GFR ( Amer) 45.4 ml/min Est GFR (Non-Af Amer) 39.1 ml/min BUN/Creatinine Ratio 24.9 H (10-20) Glucose 361 H* (70-99(Fasting)) mg/dl POC Glucose (other) 345 H (70-99) mg/dl Calcium 9.8 (8.6-10.3) mg/dl POC Ioniz Calcium Daysi 1.21 (1.12-1.32) mmol/l Troponin I High Sens 1580.9 H* Cancelled (0-20) pg/ml B-Natriuretic Peptide 1251 H (0-100) pg/ml Lipase 11 (11-82) U/L SARS-CoV-2 (PCR) NEGATIVE (Negative) Influenza Type A (PCR) Negative (Neg) Influenza Type B (PCR) Negative (Neg) RSV (RT-PCR) Negative (Neg) Imaging Data Attestation: I personally reviewed and interpreted this imaging study as follows: My Impression: Chest x-ray: Cardiomegaly with cephalization Radiologist's Impression: Chest X-Ray 12/10/23 12:52 XR chest 1V portable HISTORY: Chest pain, nonspecific COMPARISON: Chest 02/10/2022. FINDINGS: No pneumothorax. The cardiac silhouette remains mildly enlarged. There are calcifications within the aortic knob. No definite pleural effusions. There is right greater than left interstitial/vascular thickening consistent with mild asymmetric pulmonary edema. This has progressed in the interval. Lumbar spinal fusion hardware is partially visualized. IMPRESSION: Interval development of mild asymmetric interstitial pulmonary edema. ACT 112: Negative or not required by law. Electronically signed by: Ladarius Whitney M.D. 12/10/2023 1:06 PM ECG Data Attestation: I personally reviewed and interpreted this ECG as follows: Interpretation: EKG at 1304: Sinus rhythm with a rate of 115. NH QRS and QTc intervals within normal limits. No ST elevation or ST depression. MDM Narrative 1254: The patient was evaluated in room B1. A complete history and physical exam was performed Cardiac monitoring: An order was placed for continuous cardiac monitoring. The monitor shows a rate of 110 with sinus rhythm interpreted by me Patient continued on BiPAP. Chest x-ray conducted and chest x-ray viewed by me showed that the patient has cardiomegaly with cephalization. Continue BiPAP. 1400: Vital signs stable on BiPAP. Labs showed elevated troponin and BNP. Leukocytosis of 15. Patient be treated with Lasix. Continue BiPAP. VBG within normal limits. Patient be admitted to the [facility] Hospitalist team. Impression & Plan Hypoxia, CHF exacerbation, COPD exacerbation Critical Care Time Critical Care Time: Yes Total Critical Care Time: 70 I have personally spent greater than 70 minutes of critical care time in the direct management of this patient. This includes bedside care, interpretation of diagnostic studies, and testing, discussion with consultants, patient, and family members, and other required patient management activities. This 70 minutes is in excess of all separately billable procedures. Discharge Plan Visit Data Chief Complaint: Chest Pain Stated Complaint: CHEST PAIN, SOB ED Provider: Yohannes Gaston Discharge Problem: Hypoxia, CHF exacerbation, COPD exacerbation Patient Disposition: Admitted As Inpatient Forms Stand Alone Forms: My [facility] Prescriptions Prescriptions: No Action aspirin 81 mg tablet,delayed release (DR/EC) 81 mg PO QAM Rx Instructions: otc unable to verify clopidogrel [Plavix] 75 mg tablet 75 mg PO QAM Rx Instructions: last filled 08/30/23 for 90 day supply Trulicity 4.5 mg/0.5 mL pen injector 4.5 mg subcut WK famotidine 20 mg Tablet 20 mg PO QAM ascorbic acid (vitamin C) 500 mg Tablet 500 mg PO QPM Rx Instructions: otc unable to verify cholecalciferol (vitamin D3) [Vitamin D3] 50 mcg (2,000 unit) Capsule 2,000 unit PO QAM Rx Instructions: otc unable to verify furosemide 20 mg tablet 20 mg PO UD Rx Instructions: last filled 11/23/22 20 mg po daily metoprolol succinate 25 mg tablet extended release 24 hr 12.5 mg PO BID Rx Instructions: last filled August for 90 day supply lisinopril 2.5 mg tablet 2.5 mg PO QAM Jardiance 25 mg tablet 25 mg PO QAM melatonin 10 mg Tablet 10 mg PO HS Rx Instructions: otc unable to verify pantoprazole [Protonix] 40 mg tablet,delayed release (DR/EC) 40 mg PO DAILY Qty: 30 0RF Rx Instructions: gabapentin 300 mg capsule 300 mg PO QID rosuvastatin 40 mg tablet 40 mg PO UD Rx Instructions: last filled jun 2023 40 mg po daily Referrals Referrals: Naty Ordaz CRNP [Primary Care Provider] -
--- NOTE | 2023-12-10 15:15 | History & Physical Report ---
Date of Service December 10, 2023 Assessment & Plan (1) CHF exacerbation: Plan: Acute on chronic decompensated CHF Last echo 05/2020 with EF 35% Presents with bibasilar crackles, hypoxia, elevated BNP of 1251, and evidence of pulmonary edema on x-ray Received Lasix 40 mg IV on admission. Continue BID17 Heart healthy diet BNP 1251 Admitting weight 79.7 kg, last weight 67 kg with range in 2021 from 76-84 kg Acute decompensated CHF. Ischemic evaluation as noted (2) NSTEMI (non-ST elevated myocardial infarction): Plan: CAD, NSTEMI [facility] [place] reviewed. Heavily calcified 90% LMCA extending to the trifurcation of LAD, ramus, and dominant circumflex. 99 subtotal occlusion of mid LCx after giving off a large OM1, 80% stenosis of proximal ramus, 80% stenosis of proximal LAD, 80% stenosis of mid nondominant RCA. At that time patient was found to have 90% left main disease, and multivessel disease which was not amenable to PCI and was recommended for medical management at that time - chest pain free with aspirin and bipap only, did not require nitro in ER or prehospital Hs troponin 1580 on admission, uptrending to 2050. trended x3 EKG: Sinus tachycardia rate 115, ST depressions are appreciated in inferior and lateral leads new from prior. Morphology change and loss of QRS progression compared to EKG 01/2022 echo pending CXR: Mild asymmetric interstitial pulmonary edema progressed from prior VBG 7.41/40/38/25 Patient does have a leukocytosis, no left shift. PCT pending. 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 Quad screen negative. Suspect stress response. Follow fever curve. Patient is pain-free at bedside assessment, and BiPAP has resolved his pain completely. His abrupt onset of symptoms at 1 pm is concerning for ACS vs Severe type 2 NSTEMI w/ AoCCHF; he is not significantly hypertensive and does not show evidence of flash whiteout on admission . Reviewed with cardiology. Agree with medical treatment and heparinization. Unfortunately his cath was rev iewed and he has significant multivessel disease not previously amenable to stenting. He is pain-free current and feels greatly improved following initial diuresis and BiPAP. Echo is pending. - Patient was to be referred to cardiothoracic surgery in 2019, he is not aware if he had this evaluation or not while hospitalized. Cardiac cath report notes that he was to be referred to CTS; another note says he was a poor surgical/nonoperative candidate. Records are not available from [facility] due to computer downtime. Given his presentation, did reach out to cardiothoracic surgery at [place] to review case/records. They will check their records and review, and call us back. Patient is also a bilateral below-knee amputee limiting his vascular harvest options and is with increased surgical risk due to renal, diabetic, CHF, and vascular comorbidities. (3) Emphysema of lung: Plan: Tobacco abuse 1/2 pack/day smoker Patient denies history of COPD/emphysema. He is not wheezing on admitting exam although did receive albuterol. Likely has underlying COPD given extensive past history. If he has recurrent wheezing, add Methylpred 40 mg daily, pulmonary toilet, Spiriva, and doxycycline (4) Carotid artery disease: Plan: DAPT continued (5) DM type 2 (diabetes mellitus, type 2): Plan: Type II DM BSG 361 on admission Dulaglutide held Basal bolus insulin added 4 units IV given given for borderline hyperkalemia and hyperglycemia. Recheck in 1 hour then continue basal bolus SQ Plan DVT prophylaxis: Heparinize Diet: DM 2/heart healthy CODE STATUS: Full code Disposition: PCU History of Present Illness Primary Care Provider: KACIE Grigsby Sunil is a 68-year-old male with a past medical history of CAD/NSTEMI 2019 with EF of 35% and 90% left main disease in addition to multivessel disease which was felt to be both an operable and not able to be stented; patient was recommended for medical management; CAD with history of left CEA 2017 and prior CVA on aspirin/Plavix, GERD, tobacco abuse, type II DM with bilateral leg amputations due to DM who has recently switched back to [facility] PCP group due to insurance issues who presents to the hospital when he developed shortness of breath and chest pain this morning, EMS was called and found him to be hypoxic without significant improvement with nasal cannula oxygen, and who was recommended for admission for acute on chronic CHF. Pt reports that he felt normal this morning when he had sudden onset of shortness of breath, chest pain, difficulty breathing which came on at about 1 PM. Lasted 2 around 3 PM. He reports the pain was constant until he was placed on BiPAP, following for aspirin, BiPAP, Lasix, and albuterol he feels his chest pain completely resolved. He did not receive nitro in the ER. BP 117/71 on reassessment. He reports that prior to today he had felt normal. 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 He has an intermittent dry cough this has not changed. Denies sputum production.. Medical History: Reviewed Medications: Reviewed Surgical History: Reviewed Family history: Reviewed Allergies: Reviewed Social History: 0.5ppd tobacco x50 years, no etoh Code Status: Full Allergies Allergy/AdvReac Type Severity Reaction Status Date / Time No Known Allergies Allergy Verified 06/21/23 15:11 Home Medications Medication Instructions Recorded Confirmed Type aspirin 81 mg tablet,delayed 81 mg PO QAM 04/30/20 12/10/23 History release clopidogrel 75 mg tablet (Plavix) 75 mg PO QAM 04/30/20 12/10/23 History ascorbic acid (vitamin C) 500 mg 500 mg PO QPM 06/29/20 12/10/23 History tablet cholecalciferol (vitamin D3) 50 2,000 unit PO QAM 06/29/20 12/10/23 History mcg (2,000 unit) capsule (Vitamin D3) famotidine 20 mg tablet 20 mg PO QAM 06/29/20 12/10/23 History furosemide 20 mg tablet 20 mg PO UD 06/29/20 12/10/23 History lisinopril 2.5 mg tablet 2.5 mg PO QAM 06/29/20 12/10/23 History metoprolol succinate 25 mg 12.5 mg PO BID 06/29/20 12/10/23 History tablet,extended release 24 hr empagliflozin 25 mg tablet 25 mg PO QAM 02/10/22 12/10/23 History (Jardiance) melatonin 10 mg tablet 10 mg PO HS 02/10/22 12/10/23 History pantoprazole 40 mg tablet,delayed 40 mg PO DAILY #30 tabs 02/11/22 12/10/23 Rx release (Protonix) dulaglutide 4.5 mg/0.5 mL 4.5 mg subcut WK 06/21/23 12/10/23 History subcutaneous pen injector (Trulicity) gabapentin 300 mg capsule 300 mg PO QID 06/21/23 12/10/23 History rosuvastatin 40 mg tablet 40 mg PO UD 12/10/23 12/10/23 History Past Med/Surg History Problem List (Updated 12/10/23 @ 15:38 by Andrea Good MD) NSTEMI (non-ST elevated myocardial infarction) COPD exacerbation (Acute) CHF exacerbation (Acute) Hypoxia (Acute) Nonhealing nonsurgical wound Chronic systolic heart failure Hypokalemia Cerebrovascular disease CAD in [place] artery Hx NSTEMI 06/2020 Diabetic peripheral angiopathy Carotid artery disease S/P right CEA by Dr. Sheppard on 09/14/17. L Occluded carotid artery Emphysema of lung Dyslipidemia (Chronic) GERD (gastroesophageal reflux disease) (Chronic) DM type 2 (diabetes mellitus, type 2) (Chronic) Peripheral vascular disease (Chronic) Tobacco dependence (Chronic) Medical History NSTEMI (non-ST elevated myocardial infarction) MRSA infection Acute on chronic heart failure with reduced ejection fraction and diastolic dysfunction Altered mental status Leukocytosis Elevated troponin Sepsis COVID-19 ruled out Dyslipidemia Non-ST elevation (NSTEMI) myocardial infarction CHF (congestive heart failure) Echo 05/30/20 LVEF 35%. Discharge planning issues DVT prophylaxis Diabetes mellitus type 2 with complications Coronary artery disease Non-STEMI May 2020. Cath [facility] [place]/20- severe diffuse multi-vessel disease. 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 Surgical History History of left-sided carotid endarterectomy Status post cardiac catheterization [facility] [place]/02/20- severe diffuse multi-vessel disease; medical management recommended Status post above-knee amputation of right lower extremity [facility] [place] 06/03/20 History of right below knee amputation 11/15/[address] Sheppard History of angioplasty of peripheral vessel L LEG left popliteal artery angioplasty and stent as left AT/peroneal/TP trunk angioplasty on 05/10/[address] Sheppard left AKA on 12/19/17 09/27/17 for angioplasty/stent of the left SFA, but noted to have a BK- popliteal occlusion (would need a left fem=>AT bypass). left common femoral endarterectomy with vein patch angioplasty and common femoral artery => anterior tibial artery bypass using non-reversed left great saphenous vein 10/20/2017. R LEG RSFA stent and, angioplasty of PT/peroneal artery 06/06/[address] Mosqueda S/P right TOMMIE/TP-trunk/peroneral/PT angioplasty by Dr. Mosqueda on 10/25/18. 02/2019 again prompted additional intervention He underwent bilateral common & external iliac artery stents (one 7 x 80 mm Everflex stent on each side) and right SFA/pop/TP-trunk angioplasty by Dr. Sheppard 04/03/19. 05/09/20 He underwent balloon angioplasty of right SFA/popliteal/TP-trunk/peroneral arteries and open amputation of the R 5th toe by Dr. Sheppard on 08/10/19. 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 History of spinal fusion "05/[address] Reeder" Family History Sister Myocardial infarction Other Family history non-contributory Denies family history of Ovarian cancer Prostate cancer Breast cancer Colorectal cancer Social History Smoking Status: Current every day smoker Tobacco Type: Cigarettes packs per day: 0.5; Cigarettes Per Day: 10; Second Hand Exposure: No; Do You Dip or Chew Tobacco: No; Hx Alcohol Use: No Hx Substance Use: No Preferred Language: Japanese Communication Ability: Effective Registered Respiratory Technician Required: No Beliefs That Will Affect Care: None marital status: Current Living Situation: Significant Other current occupational status: retired How many Children do You have: 1 How many Children do You have Comment: LOCAL SON THAT IS ABLE TO HELP. ALSO HAS SISTER WHO IS ABLE TO HELP NEEDED. Feels Safe at Home: Yes Diet: diabetic during the past year weight has: increased > 10 lbs Dental Care, Regularly: No Physical Activity Frequency: Does not Exercise Seatbelt Use: sometimes Sunscreen Use: No Assistive Devices: Denture - Upper, Denture - Lower, Glasses, Scooter/Electric Scooter and Wheelchair Physical Exam Physical Exam: General: A&Ox3. NAD. Cooperative. HEENT: Atraumatic, normocephalic. Vision/hearing grossly itnact. On bipap. Pulm: Diminished, no wheezes/rales. Symmetrical chest rise. No increased work of breathing. No respiratory distress. Cardiac: tachycardic, -mrg. Radial pulses intact and symmetrical. Abdominal: Nontender, nondistended, soft. BS present. Ext: bilateral BKA. Results & Data Results & Data Vital Signs (Past 12 Hours) Vital Signs Temp Pulse Pulse Resp BP Pulse Ox O2 Del Method 12/10/23 15:00 97 12/10/23 14:06 110 H 38 H 98 12/10/23 14:05 110 H 38 H 98 BiPAP 12/10/23 13:30 117 H 33 H 94 BiPAP 12/10/23 13:30 117/71 BiPAP 12/10/23 13:12 118 H 12/10/23 13:11 12/10/23 13:11 94 BiPAP 12/10/23 13:06 117 H 38 H 97 12/10/23 13:04 39 H 12/10/23 13:04 BiPAP 12/10/23 13:04 BiPAP 12/10/23 13:04 37.2 C 118 H 39 H 112/72 96 BiPAP 12/10/23 13:03 117 H 33 H 95 BiPAP 12/10/23 13:03 112/74 BiPAP 12/10/23 13:02 116 H 32 H 97 BiPAP FiO2 12/10/23 15:00 12/10/23 14:06 40 12/10/23 14:05 40 12/10/23 13:30 12/10/23 13:30 12/10/23 13:12 12/10/23 13:11 40 12/10/23 13:11 12/10/23 13:06 40 12/10/23 13:04 12/10/23 13:04 12/10/23 13:04 12/10/23 13:04 12/10/23 13:03 12/10/23 13:03 12/10/23 13:02 Code Status & VTE Plan VTE Prophylaxis Plan VTE Prophylaxis will be ordered: Yes PG Care Time/CCT Total # of Minutes Spent Total Time Spent with Patient: Total time spent is greater than 50% in coordination of care (as documented) at patient's floor/unit and/or counseling patient: Coding Level of Care Code 05714 INT INP/OBS CARE Diagnoses CHF exacerbation I50.9 NSTEMI (non-ST elevated myocardial infarction) I21.4 Pulmonary emphysema, unspecified emphysema type J43.9 Emphysema type: unspecified Carotid artery disease I77.9 Type 2 diabetes mellitus with diabetic neuropathy, with long-term current use of insulin E11.40; Z79.4 Diabetes mellitus complication detail: with unspecified neuropathy Diabetes mellitus complication status: with neurologic complications Diabetes mellitus half-way insulin use: with equipment operator intermodal yard use (3) Emphysema of lung Emphysema type: unspecified Qualified Code(s): J43.9 - Emphysema, unspecified (5) DM type 2 (diabetes mellitus, type 2) Diabetes mellitus complication detail: with unspecified neuropathy Diabetes mellitus complication status: with neurologic complications 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
[2023-12-10] MEDS ORDERED: GLUCAGON FOR INJ 1 MG VIAL SQ PRN (15:39)
[2023-12-10] MEDS ORDERED: DEXTROSE 50% 50 ML SYRINGE IV PRN (15:39)
[2023-12-10] MEDS ORDERED: GLUCOSE 40% GEL 15 GM TUBE PO PRN (15:39)
[2023-12-10] MEDS ORDERED: GLUCOSE 10 TAB/TUBE PO PRN (15:39)
[2023-12-10] MEDS ORDERED: CARBOHYDRATES FOR HYPOGLYCEMIA PO PRN (15:39)
[2023-12-10] MEDS ORDERED: NovoLIN-R INSULIN PER UNIT CHARGE IV STA (15:39)
[2023-12-10] MEDS: INSULIN HUMAN REGULAR PER UNIT 3 UNITS in SYRINGE 2.97 ML IV ONE (16:00)
[2023-12-10] MEDS: HEPARIN SOD (PORCINE) 1000 UNIT/ML IV ONE (16:09)
[2023-12-10] MEDS: HEPARIN SODIUM/DEXTROSE 25,000 UNITS/500 ML BAG IV SCH (16:09)
[2023-12-10] MEDS: Heparin IV Adult Wt-Based Low-Dose w/ INITIAL Bolus Protocol IV STA (16:09)
[2023-12-10] MEDS ORDERED: ONDANSETRON INJ 2 MG/ML 2 ML VIAL IV PRN (16:43)
[2023-12-10] MEDS ORDERED: POLYETHYLENE (MIRALAX) 17 GM PACK PO PRN (16:43)
[2023-12-10] MEDS: INSULIN ASPART PER UNIT CHARGE SC SCH (18:15)
[2023-12-10] MEDS: LANTUS PER UNIT CHARGE SQ SCH (20:10)
[2023-12-10] MEDS: METOPROLOL SUCC 25MG EXT REL TAB PO SCH (20:10)
--- OUTSIDE RECORDS SUMMARY | 2023-12-10 23:30 | External Medical Summary | Summary of Care ---
Author Name Unknown Organization [facility] Address [address] [place] [address] Phone [phone] Care Team Providers Care Net Making Supervisor Name Role Phone Blade Villasenor MD Primary Care Provider [phone]- [phone] Reason for Visit * Reason Comments eRx-Medication Refill Encounter Details Date Type Department Care Team (Late st Contact Info) Description 09/19/2023 Refill [facility] [address] [place] [address] Blade Villasenor MD [address] [place] [address] Allergies No known active allergiesdocumented as of this encounter (statuses as of 09/21/2023) Medications Medication Sig Dispensed Refills Start Date End Date Status ONETOUCH DELICA LANCETS 33G MISCIndications:D M type 2, goal A1c below 7 Use to test blood sugar up to 6 times daily DX 250.00 100 Each 5 05/28/2015 Active Glucose Blood (ONETOUCH TEST) STRPIndications:T ype 2 diabetes mellitus with hemoglobin A1c goal of less than 7.0% (HCC) Use to test BG up to 6 times daily DX 250.00 200 Strip 5 02/18/2016 Active aspirin enteric coated 81 MG TBEC Take 1 Tablet by mouth every morning. 30 Tab 11 04/29/2017 Active acetaminophen (TYLENOL) 325 MG Tablet Take 3 Tablets by mouth every 8 hours as needed for Pain. 30 Tab 0 11/19/2019 Active Magnesium Hydroxide 400 MG/5ML Oral Suspension Take 30 mL by mouth daily as needed for Constipation. 0 Active Bisacodyl 10 MG Rectal Suppository Administer 10 mg into the rectum as needed. 0 Active Fleet Enema 7-19 GM/118ML Rectal Enema Administer 1 Enema into the rectum daily as needed. 0 Active Ascorbic Acid 500 MG Oral Tablet Take 500 Tablets by mouth 2 times a day with morning and evening meals. 0 Active BD Pen Needle Short U/F 31G X 8 MM (Insulin Pen Needle)Indication s:Type 2 diabetes mellitus with hemoglobin A1c goal of less than 7.0% ([facility]ERLY [facility]) using for insulins four times a day 400 Each 1 09/19/2020 Active Melatonin 3 MG Oral Tablet TAKE ONE TABLET BY MOUTH NIGHTLY AT BEDTIME 90 Tablet 3 05/04/2022 Active DULoxetine HCl 20 MG Oral Capsule Delayed Release Particles (Cymbalta) TAKE 1 CAPSULE BY MOUTH ONCE DAILY 90 Capsule 0 09/15/2022 Active Atorvastatin Calcium 80 MG Oral Tablet (Lipitor) TAKE 1 TABLET BY MOUTH AT BEDTIME 90 Tablet 0 09/15/2022 Active Furosemide 20 MG Oral Tablet (Lasix) TAKE 1 TABLET BY MOUTH ONCE DAILY NEEDED FOR FLUID RETENTION AND SWELLING 30 Tablet 0 11/23/2022 Active Clopidogrel Bisulfate 75 MG Oral Tablet (pLAVix) Take 1 Tablet by mouth in the morning. 90 Tablet 3 12/14/2022 Active Metoprolol Succinate ER 25 MG Oral Tablet Extended Release 24 Hour (toPROL XL) Take 1 Tablet by mouth in the morning. 90 Tablet 3 12/14/2022 Active Pantoprazole Sodium 40 MG Oral Tablet Delayed Release (Protonix) Take 1 Tablet by mouth in the morning. 90 Tablet 3 12/14/2022 Active Famotidine 20 MG Oral Tablet (Pepcid) TAKE 1 TABLET BY MOUTH ONCE DAILY 90 Tablet 1 01/05/2023 Active Lisinopril 2.5 MG Oral Tablet (Prinivil) Take 1 Tablet by mouth in the morning. 90 Tablet 3 01/04/2023 Active Empagliflozin 25 MG Oral Tablet (Jardiance) Take 1 Tablet by mouth in the morning. 90 Tablet 3 05/10/2023 Active Trulicity 4.5 MG/0.5ML Subcutaneous Solution Pen-injector (Dulaglutide) Inject 4.5 mg under the skin once a week. 6 mL 2 06/14/2023 Active D3 Super Strength 50 MCG (1999 UT) Oral Capsule (Cholecalciferol) TAKE 1 CAPSULE BY MOUTH ONCE DAILY 90 Capsule 3 08/31/2023 Active Gabapentin 300 MG Oral Capsule (Neurontin) TAKE 1 CAPSULE BY MOUTH FOUR TIMES DAILY 120 Capsule 3 09/21/2023 Active Gabapentin 300 MG Oral Capsule (Neurontin) TAKE 1 CAPSULE BY MOUTH FOUR TIMES DAILY 120 Capsule 3 09/17/2023 09/21/19 24 Discontinued documented as of this encounter (statuses as of 09/21/2023) Active Problems Problem Noted Date Diagnosed Date Chronic kidney disease, stage 3a 12/27/2022 Overview: Per CKD protocol COPD, group A, by GOLD 2017 classification 06/28 Overview: Per COPD GOLD Classification PAF (paroxysmal atrial fibrillation) 10/07/2020 Status post above-knee amputation of both lower extremities 08/01/2020 Dyslipidemia 06/16/2020 Diabetic neuropathy 06/16/2020 Gastroesophageal reflux disease 06/16/2020 HFrEF (heart failure with reduced ejection fract ion) 06/02/2020 Nodule of lower lobe of left lung 04/09/2019 Pulmonary emphysema 02/19/2019 History of tobacco use 11/17/2017 Bilateral carotid artery disease 10/03/2017 Type 2 diabetes mellitus wit h hemoglobin A1c goal of less than 8.0% 09/30/2017 Peripheral vascular disease 05/11/2017 S/P angioplasty 05/11/2017 Type 2 diabetes mellitus 03/28/2017 DM type 2 with diabetic peripheral neuropathy CVA, old, cognitive deficits 11/21/2012 Reflux esophagitis 10/14/2009 Carotid artery disease documented as of this encounter (statuses as of 09/21/2023) Resolved Problems Problem Noted Date Diagnosed Date Resolved Date Osteomyelitis of ankle or foot, right, acute 1 10/07/2020 Osteomyelitis 06/02/2020 06/08/2020 Severe malnutrition 06/02/2020 10/08/19 21 NSTEMI (non-ST elevated myoc ardial infarction) 06/01/2020 06/08/2020 Status post above-knee amput ation of both lower extremities 06/01/2020 08/01/2020 Hyponatremia 03/01/2020 03/05/2020 Diabetes mellitus type 2 wit h peripheral artery disease 02/19/2019 06/16/2020 Dehiscence of closure of skin 11/21/2017 02/19/2019 Atherosclerosis of [place] ar hien of left lower extremity with ulceration of midfoot 11/02/2017 02/19/2019 Ischemic rest pain of lower extremity 10/03/2017 11/03/2017 Obesity, Class I, BMI 30.0-3 4.9 (see actual BMI) 06/23/2012 03/28/2017 Overview: bmi= 32.71 06/23/12 Impacted cerumen 06/23/2012 03/28/2017 Plugged feeling in ear 06/23/201203/28 Dyslipidemia, goal LDL below 100 02/13/2010 07/21/2021 Ventral hernia, unspecified, without mention of obstruction or gangrene 10/14/2009 03/28/2017 Type 2 diabetes mellitus wit h hemoglobin A1c goal of less than 7.0% 05/15/2009 09/30/2017 Overview: Per Diabetes Taxonomy. ICD-10 update of inactive term Type 2 diabetes mellitus wit h hemoglobin A1c goal of less than 7.0% 04/14/2007 05/15/2009 Overview: Per Diabetes Taxonomy. ICD-10 update of inactive term ADVANCE DIRECTIVE INFORMATION 04/12/2007 08/19/2017 Overview: No, Advance Directive brochure given to patient. Infection due to yeast 08/01 documented as of this encounter (statuses as of 09/21/2023) Immunizations Name Administration Dates Next Due Pneumococcal Polysaccharide PPV23 (Pneumovax) 06/07/2018(Deferred: - Dr. Morgan of Vascular Surgery made aware via TT.),10/10/2013 Seasonal Influenza, PF, 6 M & above, IM , (FluLaval or Fluzone) 06/07/2018(Deferred: - Dr. Morgan of Vascular Surgery made aware via TT.) Seasonal Influenza, Split, I IV3, With Preserve, Inj 05/20/2011 TD - Tetanus/Diptheria (ADULT) 07/18/2008 TDAP (age 10 and older)(Boostrix) 01/25/2014 documented as of this encounter Social History Tobacco Use Types Packs/Day Years Used Date Smoking Tobacco: Every Day Cigarettes 0.5 50 Started: 05/25/1970; Last attempted to quit: 05/25/2020 Smokeless Tobacco: Never Comments:01/22/22 cut back to half pack a day Alcohol Use Standard Drinks/Week Comments Not Currently 0 (1 standard drink = 0.6 oz pur e alcohol) social drinking PHQ-2 Answer Date Recorded PHQ Adult Total Score 3 12/14/2022 Hunger Vital Sign Answer Date Recorded Within the past 12 months, y ou worried that your food would run out before you got the money to buy more. Never true 12/15/19 23 Within the past 12 months, t he food you bought just didn't last and you didn't have money to get more. Never true 12/14/2022 Sex and Gender Information Value Date Recorded Sex Assigned at Not on file Gender Identity Male 12/08/2021 10:06 AM EDT Sexual Orientation Straight 09/09/2020 10 :57 AM EST Job Start Date Occupation Industry Not on file Not on file Not on file documented as of this encounter Functional Status Functional Status Response Date of Assess ment Are you deaf or do you have serious difficulty h earing? No 06/01/2020 Are you blind or do you have serious difficulty seeing, even when wearing glasses? No 06/01/2020 Do you have serious difficul ty walking or climbing stairs? (5 years old or older) Yes 06/04/2020 Do you have difficulty dress ing or bathing? (5 years old or older) Yes 06/01/2020 Because of a physical, menta l, or emotional condition, do you have difficulty doing errands alone such as visiting a doctor s office or shopping? (15 years old or older) Yes 06/01/20 Cognitive Status Response Date of Assessm ent Because of a physical, menta l, or emotional condition, do you have serious difficulty concentrating, remembering, or making decisions? (5 years old or older) No 06/01/2020 documented as of this encounter Miscellaneous Notes * Telephone Encounter - Blade Villasenor MD - 09/21/2023 2:12 PM ESTSigned Prescriptions: Disp Refills Gabapentin 300 MG Oral Capsule (Neurontin) 120 Ca*3 Sig: TAKE 1 CAPSULE BY MOUTH FOUR TIMES DAILYAuthorizing Provider: BLADE VILLASENOR * Telephone Encounter - Bessie Soria LPN - 09/20/2023 3:41 PM ESTPending Prescriptions: Disp Refills Gabapentin 300 MG Oral Capsule [Pharmacy M*120 Ca*0 Sig: TAKE 1 CAPSULE BY MOUTH FOUR TIMES DAILY * Telephone Encounter - Dylon Hyde - 09/20/2023 1:56 PM ESTPending Prescriptions: Disp Refills Gabapentin 300 MG Oral Capsule [Pharmacy M*120 Ca*0 Sig: TAKE 1CAPSULE BY MOUTH FOUR TIMES DAILY documented in this encounter Plan of Treatment Upcoming Encounters Date Type Department Care Team (Late st [facility] Info) Description 12/19/2023 2:00 PM EDT Nurse Only Ancillary Department, [address] [place] [address] Didi, Nurse [facility] [address] [place] [address] Health Maintenance Due Date Last Done Comments DISCUSS TOBACCO CESSATION (REFER TO SMARTSET #7270) 1955 Alpha-1 Antitrypsin 11/27/1971 CKD PHOS USE SMARTSET 13395 11/27/1971 Cologuard 1998 Colonoscopy 1998 Colorectal Cancer Screening 1998 Fecal Occult Blood Test 1998 Sigmoidoscopy 1998 Zoster Vaccines (1 of 2) 11/27/2003 Pneumococcal Vaccine: 65+ Years (2 of 2 - PCV) 10/10/2014 10/10/2013 *COPD SEVERITY VERIFIED BY PFT 02/22/2019 Diabetic Eye Exam 12/29/2022 12/29/2021, , 09/09/2020, Additional history exists COVID-19 Vaccine ( - season) 2023 Influenza Vaccine (FLU shot) (#1) 2023 05/20/2011 GFR 06/16/2023 12/14/2022, 06/18, 06/12/2020, Additional history exists HbA1c 06/16/2023 12/14/2022, 11/16, 07/21/2021, Additional history exists Albumin/Creatinine Ratio 12/15/2023 023, 12/08/2021, 03/07/2019, Additional history exists CKD HGB USE SMARTSET 51436 12/15/202312/14, 07/14/2021, 06/12/2020, Additional history exists Depression Screening 12/15/2023 12/14/2022 O2 ASSESSMENT COMPLETED IN PAST YEAR FOR COPD 12/15/2023 12/14/2022 DTaP,Tdap,and Td Vaccines (2 - Td or Tdap) 01/26/2024 01/25/2014, 07/18/2008 Lipid Panel 12/15/2027 12/14/2022, 06/18, 03/07/2019, Additional history exists AAA Screening Completed 04/03/2019, 04/18, 05/10/2017, Additional history exists LUNG CANCER SCREENING - USE SMARTSET 12373 Completed 07/24/2019, 04/18/2019, 03/21/2019 Diabetic Foot Exam Discontinued 09/09/2020 (U nable to do), 01/11/2018, 03/28/2017, Additional history exists GARDASIL-HPV IMMUNIZATION SERIES Aged Out No longer eligible based on patient's age to complete this topic Hepatitis B Aged Out No longer eligi ble based on patient's age to complete this topic MENINGOCOCCAL (MENACTRA/MENVEO) Aged Out No longer eligible based on patient's age to complete this topic documented as of this encounter Medical Devices Implanted Type Area Business Objects Report Developer Device Identifier Shelf Expiration Date Model / Serial / Lot Stent Complete Sc 5x40 - [id number] Implanted:Qty : 1 on 05/10/2017 [place] [facility] [place] Popliteal Artery [employer] : VASCULAR 07/22/2017 [id number] / / [id number] Patch Xenosure [id number] - [id number] Implanted:Qty : 1 on 09/06/2017 by Talib [place] [facility] [place]: Carotid [employer] 03/14/2023 [id number] / / [id number] Graft Stent Viab [id number] - [id number] Implanted:Qty : 1 on 09/27/2017 by Talib [place] [facility] [place]: Leg Upper [employer] 07/03/2020 [id number] / / Description:Left SFA Stent Innova [id number] - [id number] Implanted:Qty : 1 on 06/06/2018 [place]qu[place] [facility] [place]: SFA Sentiment 03/21/2021 [id number] / / [id number] Device [facility] Cls Cadn Mynx6/7fr - [id number] Implanted:Qty : 1 on 06/06/2018 by [place]queda [place] [facility] [place]: SFA CARDIOVASCULAR DYNAMICS [id number] / / Stent Peripheral 7 Diam 150x80 - [id number] Implanted:Qty : 1 on 04/03/2019 by Talib [place]ppard [place] [facility] [place]: Iliac [employer] : VASCULAR [id number] 01/22/2022 [id number] -080-150 / / [id number] Stent Peripheral 7 Diam 150x80 - [id number] Implanted:Qty : 1 on 04/03/2019 by Talib [place]ard [place] [facility] [place]: Iliac [employer] : VASCULAR [id number] 01/03/2022 [id number] -080-150 / / [id number] Stent Peripheral 6 [id number] - [id number] Implanted:Qty : 1 on 08/10/2019 by Talib Sheppard [place] [facility] [place]: SFA [employer] : VASCULAR [id number] 03/22/2022 [id number] -150-150 / / [id number] documented as of this encounter Advance Directives Latest Code Status on File Code Status Date Activated Date Inactivated Comments Full Code 06/01/2020 10:26 PM 06/09/2020 3:15 PM Th is order reflects the patients wishes and were consensually agreed upon. Question Answer Comments Discussion of Advance Directives occurred with: Patient Does the patient have a Living Will? No Does the patient have Health Care Power of Magazine Keeper? Yes, in chart and reviewed as current Code Status History Code Status Date Activated Date Inactivated Comments Full Code 06/01/2020 9:28 PM 06/01/2020 10:26 PM Th is order reflects the patients wishes and were consensually agreed upon. Question Answer Comments Discussion of Advance Directives occurred with: Not Discussed Does the patient have a Living Will? No Does the patient have Health Care Power of Magazine Keeper? Yes, not currently available Full Code 02/29/2020 7:26 PM 03/06/2020 4:50 PM This order reflects the patients wishes and were consensually agreed upon. Full Code 11/14/2019 2:42 PM 11/19/2019 7:19 PM This o rder reflects the patients wishes and were consensually agreed upon. Full Code 09/17/2019 5:33 PM 09/26/2019 2:23 PM Question Answer Comments Discussion of Advance Directives occurred with: Patient Healthcare Agents on File Name Relationship Healthcare Agent Relationshi p Communication Sunil JOVEL Toner Adult Child Power of Magazine Keeper Care Teams Net Making Supervisor Relationship Specialty Start Date End Date Blade Villasenor MD [address] [facility] [place] [address] PCP - General 04/12/07 documented as of this encounter
--- OUTSIDE RECORDS SUMMARY | 2023-12-10 23:30 | External Medical Summary | Summary of Care ---
Author Name Unknown Organization [facility] Address [address] [place] [address] Phone [phone] Care Team Providers Care Veneer Stapler Name Role Phone Blade Villasenor MD Primary Care Provider [phone]- [phone] Reason for Visit * Reason Comments eRx-Medication Refill Encounter Details Date Type Department Care Team (Late st Contact Info) Description 08/30/2023 Refill [facility] [address] [place] [address] Blade Villasenor MD [address] [place] [address] Allergies No known active allergiesdocumented as of this encounter (statuses as of 08/31/2023) Medications Medication Sig Dispensed Refills Start Date [...] than 7.0% ([facility]) using for insulins four times a day [...] a week. 6 mL 2 06/14/2023 Active Gabapentin 300 MG Oral Capsule (Neurontin) TAKE 1 CAPSULE BY MOUTH FOUR TIMES DAILY 120 Capsule 0 07/27/2023 Active D3 Super Strength 50 MCG (2000 UT) Oral Capsule (Cholecalciferol) TAKE 1 CAPSULE BY MOUTH ONCE DAILY 90 Capsule 3 08/31/2023 Active Vitamin D3 50 MCG (2000 UT) Oral Capsule TAKE 1 CAPSULE BY MOUTH ONCE DAILY 90 Capsule 3 05/11/2022 08/31/19 24 Discontinued documented as of this encounter (statuses as of 08/31/2023) Active Problems Problem Noted Date Diagnosed Date [...] as of this encounter (statuses as of 08/31/2023) Resolved Problems Problem Noted Date Diagnosed Date Resolved Date Osteomyelitis of ankle or foot, right, acute 1 10/07/2020 Osteomyelitis 06/02/2020 06/08/2020 Severe malnutrition 06/02/2020 10/08/19 NSTEMI (non-ST elevated myoc ardial infarction) 06/01/2020 06/08/2020 Status post above-knee amput ation of both lower extremities 06/01/2020 08/01/2020 Hyponatremia 03/01/2020 03/05/2020 Diabetes mellitus type 2 wit h peripheral artery disease 02/19/2019 06/16/2020 Dehiscence of closure of skin 11/21/2017 02/19/2019 Atherosclerosis of [place] ar hien of left lower extremity with [...] as of this encounter (statuses as of 08/31/2023) Immunizations Name Administration Dates Next Due Pneumococcal [...] Smoking Tobacco: Every Day Cigarettes 0.5 50 Last attempted to quit: 05/25/2020 Smokeless Tobacco: [...] Telephone Encounter - Blade Villasenor MD - 08/31/2023 10:23 AM ESTSigned Prescriptions: Disp Refills D3 Super Strength 50 MCG (2000 UT) Oral Ca*90 Cap*3 Sig: TAKE 1 CAPSULE BY MOUTH ONCE DAILYAuthorizing Provider: BLADE VILLASENOR * Telephone Encounter - Tracey Romero LPN - 08/31/2023 10:20 AM ESTPending Prescriptions: Disp Refills D3 Super Strength 50 MCG (2000 UT) Oral Ca*90 Cap*0 Sig: TAKE 1 CAPSULE BY MOUTH ONCE DAILY * Telephone Encounter - Dylon Hyde - 08/30/2023 1:59 PM ESTPending Prescriptions: Disp Refills D3 Super Strength 50 MCG (2000 UT) Oral Ca*90 Cap*0 Sig: TAKE 1 CAPSULE BY MOUTH ONCE DAILY documented in this encounter Plan of Treatment Upcoming Encounters Date Type Department Care Team (Late st Contact Info) Description 12/19/2023 2:00 PM EDT Nurse Only Ancillary Department, [address] [address] Didi Nurse Annual [facility] [address] [place] [id number] Health Maintenance Due Date Last Done Comments DISCUSS TOBACCO CESSATION (REFER TO SMARTSET #1665) 1955 COVID-19 Vaccine (#1) 05/29/1956 Alpha-1 Antitrypsin 11/27/1971 CKD PHOS USE SMARTSET 90318 11/27/1971 Cologuard 1998 Colonoscopy 1998 Colorectal Cancer Screening 1998 Fecal Occult Blood Test 1998 Sigmoidoscopy 1998 Zoster Vaccines (1 of 2) 11/27/2003 Hepatitis B (1 of 3 - Risk 3-dose series) 2013 Pneumococcal Vaccine: 65+ Years (2 - PCV) 10/10/2014 10/10/2013 *COPD SEVERITY VERIFIED BY PFT 02/22/2019 Diabetic Eye Exam 12/29/2022 12/29/2021, , 09/09/2020, Additional history exists Influenza Vaccine (FLU shot) (#1) 2023 05/20/2011 GFR 06/16/2023 12/14/2022, 06/18, 06/12/2020, Additional history exists HbA1c 06/16/2023 12/14/2022, 11/16, 07/21/2021, Additional history exists Albumin/Creatinine Ratio 12/15/2023 023, 12/08/2021, 03/07/2019, Additional history exists CKD HGB USE SMARTSET 22262 12/15/202312/14, 07/14/2021, 06/12/2020, Additional history exists Depression Screening 12/15/2023 12/14/2022 O2 ASSESSMENT COMPLETED IN PAST YEAR FOR COPD 12/15/2023 12/14/2022 DTaP,Tdap,and Td Vaccines (2 - Td or Tdap) 01/26/2024 01/25/2014, 07/18/2008 Lipid Panel 12/15/2027 12/14/2022, 06/18, 03/07/2019, Additional history exists AAA Screening Completed 04/03/2019, 04/18, 05/10/2017, Additional history exists LUNG CANCER SCREENING - USE SMARTSET 59757 Completed 07/24/2019, 04/18/2019, 03/21/2019 Diabetic Foot Exam Discontinued 09/09/2020 (U nable to do), 01/11/2018, 03/28/2017, Additional history exists GARDASIL-HPV IMMUNIZATION SERIES Aged Out No longer eligible based on patient's age to complete this topic MENINGOCOCCAL (MENACTRA/MENVEO) Aged Out No longer eligible based on patient's age to complete this topic documented as of this encounter Medical Devices Implanted Type Area Anatomic Pathology Assistant Device Identifier Shelf Expiration Date Model / Serial / Lot Stent Complete Sc 5x40 - [id number] Implanted:Qty : 1 on 05/10/2017 by Talib Sheppard MD [place] [facility] [place] Left: Popliteal Artery [employer] : VASCULAR 07/22/2017 [id number] / / [id number] Patch Xenosure [id number] - [id number] Implanted:Qty : 1 on 09/06/2017 by Talib Sheppard MD at OR [facility] [place] Right: Carotid [employer] 03/14/2023 E0.8P8 / / [id number] Graft Stent Viab [id number] - [id number] Implanted:Qty : 1 on 09/27/2017 by Talib Sheppard MD at OR [facility] [place] Left: Leg Upper [employer] 07/03/2020 [id number] / / Description:Left SFA Device Vasc Cls Cadn Mynx6/7fr - [id number] Implanted:Qty : 1 on 06/06/2018 by Andrew Mosqueda MD at OR [facility] [place] Right: SFA CARDIOVASCULAR DYNAMICS [id number] / / Stent Peripheral 7 Diam 150x80 - [id number] Implanted:Qty : 1 on 04/03/2019 by Talib Sheppard MD at OR [facility] [place] Right: Iliac [employer] : VASCULAR [id number] 01/03/2022 [id number] -080-150 / / [id number] Stent Peripheral 6 [id number] - [id number] Implanted:Qty : 1 on 08/10/2019 by Talib Sheppard MD at OR [facility] [place] Right: SFA [employer] : VASCULAR [id number] 03/22/2022 [id number] -150-150 / / [id number] documented as of this encounter Advance Directives [...] the patient have Health Care Power of Foundry Metallurgist? Yes, in chart and reviewed as current [...] the patient have Health Care Power of Foundry Metallurgist? Yes, not currently available Full Code 02/29/2020 [...] Agents on File Name Relationship Healthcare Agent [facility] Communication Sunil Paul Adult Child Power of Foundry Metallurgist Care Teams Veneer Stapler Relationship Specialty Start Date End Date Blade Villasenor MD [address] [place] [address] PCP - General 04/12/07 documented as of this encounter
--- OUTSIDE RECORDS SUMMARY | 2023-12-10 23:30 | External Medical Summary | Summary of Care ---
Author Name Unknown Organization [facility] Address [address] [place] [address] Phone [phone] Care Team Providers Care Solvent Process Extractor Operator Name Role Phone Blade Villasenor MD Primary Care Provider +1- [phone] Reason for Visit * Reason Comments eRx-Medication Refill Encounter Details Date Type Department Care Team (Late st Contact Info) Description 10/18/2023 Refill [facility] [address] [place] [address] Blade Villasenor MD [address] [place] [address] Encounter for long-term (current) use of medications* Allergies No known active allergiesdocumented as of this encounter (statuses as of 10/20/2023) Medications Medication Sig Dispensed Refills Start Date [...] hemoglobin A1c goal of less than 7.0% ([facility]) using for insulins four times a day [...] the morning. 90 Tablet 3 12/14/2022 Active Lisinopril 2.5 MG Oral Tablet (Prinivil) [...] TIMES DAILY 120 Capsule 3 09/21/2023 Active Famotidine 20 MG Oral Tablet (Pepcid) TAKE 1 TABLET BY MOUTH ONCE DAILY 90 Tablet 3 10/20/2023 Active Famotidine 20 MG Oral Tablet (Pepcid) TAKE 1 TABLET BY MOUTH ONCE DAILY 90 Tablet 1 01/05/2023 10/20/19 24 Discontinued documented as of this encounter (statuses as of 10/20/2023) Active Problems Problem Noted Date Diagnosed Date [...] as of this encounter (statuses as of 10/20/2023) Resolved Problems Problem Noted Date Diagnosed Date [...] closure of skin 11/21/2017 02/19/2019 Atherosclerosis of [place] ar hien of left lower extremity with [...] as of this encounter (statuses as of 10/20/2023) Immunizations Name Administration Dates Next Due Pneumococcal [...] Telephone Encounter - Blade Villasenor MD - 10/20/2023 12:13 PM EDTSigned Prescriptions: Disp Refills Famotidine 20 MG Oral Tablet (Pepcid) 90 Tab*3 Sig: TAKE 1 TABLET BY MOUTH ONCE DAILYAuthorizing Provider: BLADE VILLASENOR * Telephone Encounter - Margaret Brink CPhT - 10/20/2023 11:29 AM EDTPending Prescriptions: Disp Refills Famotidine 20 MG Oral Tablet (Pepcid) 90 Tab*0 Sig: TAKE 1 TABLET BY MOUTH ONCE DAILY * Telephone Encounter - Margaret Brink CPhT - 10/20/2023 11:28 AM EDT Received message from [facility] regarding patient needing appointment and labs. Call Placed, Unable to reach pt, as there was no answer and no VM available to leave message. Sent the patient a Appier message to advise. Thank you, Asiya Brink CPhT Sales Support Specialist II [facility] ([facility]) (Formerly Telepharmacy) 10/20/2023,11:28 AM * Telephone Encounter - Naz Moreno [facility] - 10/19/2023 11:37 AM EDTPending Prescriptions: Disp Refills Famotidine 20 MG Oral Tablet (Pepcid) 90 Tab*0 Sig: TAKE 1 TABLET BY MOUTH ONCE DAILY * Telephone Encounter - Naz Moreno RPh - 10/19/2023 11:26 AM EDT Unable to authorize medication refills for pended medication(s) at this time. Part of the protocol criteria used for refill authorization was not satisfied. Per refill protocol patient should have routine exam on file within past year and will be due for labs soon. Reviewed AMP report, Care Gaps/Health Maintenance, medications list, and for any routine labs typically ordered for this patient. Lab orders placed. Please contact patient to schedule office visit with PRIMARY CARE and advise of labs ordered for blood draw AND URINE specimen (patient will have to be able to void to provide sample).. Recommend patient to fast if able for labs. Patient may still have water and regular medications. Advise to obtain labs before his scheduled office visit Visit date not found. Last Visit: 01/27/2022 (in office), 05/13/2020 (telemedicine) Next Visit: Visit date not found After contacting patient, please forward request to Blade Villasenor MD. Thank You, Naz Moreno [facility] Clinical Pharmacist [facility] ([facility]PS) (formerly Telepharmacy) [phone] 10/19/2023, 11:36 AM documented in this encounter Plan of Treatment Upcoming Encounters Date Type Department Care Team (Late st Contact Info) Description 12/19/2023 2:00 PM EDT Nurse Only Ancillary Department, [address] [address] [place], Nurse Annual Wellness [address] [place] [address] Scheduled Orders Name Type Priority Associated Diagnoses Orde r Schedule LIPID PANEL WITH DIRECT LDL IF TG IS HIGH Lab Routine Encounter for long-term (current) use of medications Expected: 10/19/2023 (Approximate), Expires: 10/18/2024 HEMOGLOBIN A1C Lab Routine Encounter for long-term (current) use of medications Expected: 10/19/2023 (Approximate), Expires: 10/18/2024 CBC Lab Routine Encounter for long-term (current) use of medications Expected: 10/19/2023 (Approximate), Expires: 10/18/2024 BASIC METABOLIC PANEL Lab Routine Encounter for long-term (current) use of medications Expected: 10/19/2023 (Approximate), Expires: 10/18/2024 VITAMIN B12 Lab Routine Encounter for long-term (current) use of medications Expected: 10/19/2023 (Approximate), Expires: 10/18/2024 MAGNESIUM Lab Routine Encounter for long-term (current) use of medications Expected: 10/19/2023 (Approximate), Expires: 10/18/2024 PHOSPHORUS Lab Routine Encounter for long-term (current) use of medications Expected: 10/19/2023 (Approximate), Expires: 10/18/2024 ALBUMIN / CREATININE RATIO, URINE Lab Routine Encounter for long-term (current) use of medications Expected: 10/19/2023 (Approximate), Expires: 10/18/2024 Health Maintenance Due Date Last Done Comments DISCUSS TOBACCO CESSATION (REFER TO SMARTSET #3291) 1955 Alpha-1 Antitrypsin 11/27/1971 CKD PHOS USE SMARTSET 45247 11/27/1971 Cologuard 1998 Colonoscopy 1998 Colorectal Cancer Screening 1998 Fecal Occult Blood Test 1998 Sigmoidoscopy 1998 Zoster Vaccines (1 of 2) 11/27/2003 Pneumococcal Vaccine: 65+ Years (2 of 2 - PCV) 10/10/2014 10/10/2013 *COPD SEVERITY VERIFIED BY PFT 02/22/2019 Diabetic Eye Exam 12/29/2022 12/29/2021, , 09/09/2020, Additional history exists COVID-19 Vaccine ( season) 2023 GFR 06/16/2023 12/14/2022, 06/18, 06/12/2020, Additional history exists HbA1c 06/16/2023 12/14/2022, 11/16, 07/21/2021, Additional history exists Albumin/Creatinine Ratio 12/15/2023 023, 12/08/2021, 03/07/2019, Additional history exists CKD HGB USE SMARTSET 72842 12/15/202312/14, 07/14/2021, 06/12/2020, Additional history exists Depression Screening 12/15/2023 12/14/2022 O2 ASSESSMENT COMPLETED IN PAST YEAR FOR COPD 12/15/2023 12/14/2022 DTaP,Tdap,and Td Vaccines (2 - Td or Tdap) 01/26/2024 01/25/2014, 07/18/2008 Influenza Vaccine (FLU shot) (Season Ended) 2024 05/20/2011 Lipid Panel 12/15/2027 12/14/2022, 06/18, 03/07/2019, Additional history exists AAA Screening Completed 04/03/2019, 04/18, 05/10/2017, Additional history exists LUNG CANCER SCREENING - USE SMARTSET 40217 Completed 07/24/2019, 04/18/2019, 03/21/2019 Diabetic Foot Exam [...] this encounter Medical Devices Implanted Type Area Assistant Cross Country Coach Device Identifier Shelf Expiration Date Model / Serial / Lot Stent Complete Sc 5x40 - [id number] Implanted:Qty : 1 on 05/10/2017 [place]ib [place] [facility] [place] Popliteal Artery [employer] : VASCULAR 07/22/2017 [id number] / / [id number] 32 Patch Xenosure 0.4xjn2ku - [id number] Implanted:Qty : 1 on 09/06/2017 by Talib Sheppard [place] [facility] [place]: Carotid [employer] 03/14/2023 E0.8P8 / / [id number] Graft Stent Viab [id number] - [id number] Implanted:Qty : 1 on 09/27/2017 by Talib Sheppard [place] [facility] [place]: Leg Upper [employer] 07/03/2020 [id number] / / Description:Left SFA Stent Innova [id number] - [id number] Implanted:Qty : 1 on 06/06/2018 by Andrew Mosqueda MD [place] [facility] [place]: SFA Zenytime 03/21/2021 [id number] / / [id number] Device Vas Cls Cadn Mynx6/7fr - [id number] Implanted:Qty : 1 on 06/06/2018 by Andrew Mosqueda [place] [facility] [place]: SFA CARDIOVASCULAR DYNAMICS [id number] / / Stent Peripheral 7 Diam 150x80 - [id number] Implanted:Qty : 1 on 04/03/2019 by Talib Sheppard [place] [facility] [place]: Iliac [employer] : VASCULAR [id number] 01/22/2022 [id number] -080-150 / / [id number] Stent Peripheral 7 Diam 150x80 - [id number] Implanted:Qty : 1 on 04/03/2019 by Talib Sheppard [place] [facility] [place]: Iliac [employer] : VASCULAR [id number] 01/03/2022 RWJ18-40 -080-150 / / [id number] Stent Peripheral 6 [id number] - [id number] Implanted:Qty : 1 on 08/10/2019 by Talib Sheppard [place] [facility] [place]: SFA [employer] : VASCULAR [id number] 03/22/2022 GUQ94-71 -150-150 / / [id number] documented as of this encounter Visit Diagnoses Diagnosis Encounter for long-term (current) use of medications- Primary Encounter for long-term (current) use of other medications documented in this encounter Advance Directives Latest Code Status on File Code Status Date Activated Date Inactivated Comments Full Code 06/01/2020 10:26 PM 06/09/2020 3:15 PM Th is order reflects the patients wishes and were consensually agreed upon. Question Answer Comments Discussion of Advance Directives occurred with: Patient Does the patient have a Living Will? No Does the patient have Health Care Power of Upkeep Mechanic? Yes, in chart and reviewed as current [...] the patient have Health Care Power of Upkeep Mechanic? Yes, not currently available Full Code 02/29/2020 [...] Agents on File Name Relationship Healthcare Agent [facility] Communication Sunil Paul Adult Child Power of Upkeep Mechanic Care Teams Solvent Process Extractor Operator Relationship Specialty Start Date End Date Blade Villasenor MD [address] [place] [address] PCP - General 04/12/07 documented as of this encounter
--- OUTSIDE RECORDS SUMMARY | 2023-12-10 23:30 | External Medical Summary | Summary of Care ---
Author Name Unknown Organization [facility] Address [address] [place] [address] Phone [phone] Care Team Providers Care Non Destructive Tester Name Role Phone Zion Moses MD Primary Care Provider +1- [phone] Encounter Details Date Type Department Care Team (Late st Contact Info) Description 08/15/2023 Orders Only Outcomes Research Department [address] [place] [address] Kathie Lee CHRA MyCode Research Other*[id number] Allergies No known active allergiesdocumented as of this encounter (statuses as of 08/15/2023) Medications Medication Sig Dispensed Refills Start Date End Date Status ONETOUCH LOLA LANCETS 33G MISCIndications:DM type 2, goal A1c below 7 Use to test blood sugar up to 6 times daily DX 250.00 100 Each 5 05/28/2015 Active Glucose Blood (ONETOUCH TEST) STRPIndications:Typ e 2 diabetes mellitus with hemoglobin A1c goal of less than 7.0% ([facility]) Use to test BG up to 6 [...] U/F 31G X 8 MM (Insulin Pen Needle)Indications: Type 2 diabetes mellitus with hemoglobin A1c goal of less than 7.0% ([facility]) using for insulins four times a day 400 Each 1 09/19/2020 Active Melatonin 3 MG Oral Tablet TAKE ONE TABLET BY MOUTH NIGHTLY AT BEDTIME 90 Tablet 3 05/04/2022 Active Vitamin D3 50 MCG (1999 UT) Oral Capsule TAKE 1 CAPSULE BY MOUTH ONCE DAILY 90 Capsule 3 05/11/2022 Active DULoxetine HCl 20 MG Oral Capsule [...] TIMES DAILY 120 Capsule 0 07/27/2023 Active documented as of this encounter (statuses as of 08/15/2023) Active Problems Problem Noted Date Diagnosed Date [...] as of this encounter (statuses as of 08/15/2023) Resolved Problems Problem Noted Date Diagnosed Date [...] closure of skin 11/21/2017 02/19/2019 Atherosclerosis of [place] ar hien of left lower extremity with [...] as of this encounter (statuses as of 08/15/2023) Immunizations Name Administration Dates Next Due Pneumococcal [...] (15 years old or older) Yes 06/01/20 20 Cognitive Status Response Date of Assessm ent Because of a physical, menta l, or emotional condition, do you have serious difficulty concentrating, remembering, or making decisions? (5 years old or older) No 06/01/2020 documented as of this encounter Plan of Treatment Upcoming Encounters Date Type Department Care Team (Late st Contact Info) Description 12/19/2023 2:00 PM EDT Nurse Only Ancillary Department, [place] [address] [facility] [place] [address] [place], Nurse [facility] [address] [facility] [address] Scheduled Orders Name Type Priority Associated Diagnoses Orde r Schedule MYCODE SUBSEQUENT ADULT Lab Routine MyCode Research Other*[id number] Every 6 Months for 2 Occurrences starting 08/15/2023 until 09/03/2024 Health Maintenance Due Date Last Done Comments DISCUSS TOBACCO CESSATION (REFER TO SMARTSET #6617) 1955 COVID-19 Vaccine (#1) 05/29/1956 Alpha-1 Antitrypsin 11/27/1971 CKD PHOS USE SMARTSET 20341 11/27/1971 Cologuard 1998 Colonoscopy 1998 Colorectal Cancer [...] Additional history exists CKD HGB USE SMARTSET 61904 12/15/202312/14, 07/14/2021, 06/12/2020, Additional history exists Depression Screening 12/15/2023 12/14/2022 O2 ASSESSMENT COMPLETED IN PAST YEAR FOR COPD 12/15/2023 12/14/2022 DTaP,Tdap,and Td Vaccines (2 - Td or Tdap) 01/26/2024 01/25/2014, 07/18/2008 Lipid Panel 12/15/2027 12/14/2022, 06/18, 03/07/2019, Additional history exists AAA Screening Completed 04/03/2019, 04/18, 05/10/2017, Additional history exists LUNG CANCER SCREENING - USE SMARTSET 14597 Completed 07/24/2019, 04/18/2019, 03/21/2019 Diabetic Foot Exam Discontinued 09/09/2020 (U nable to do), 01/11/2018, 03/28/2017, Additional history exists GARDASIL-HPV IMMUNIZATION SERIES Aged Out No longer eligible based on patient's age to complete this topic MENINGOCOCCAL (MENACTRA/MENVEO) Aged Out No longer eligible based on patient's age to complete this topic documented as of this encounter Medical Devices Implanted Type Area Telephonic Nurse Case Manager Device Identifier Shelf Expiration Date Model / Serial / Lot Stent Complete Sc 5x40 - [id number] Implanted:Qty : 1 on 05/10/2017 by Talib Sheppard MD at [place] Left: Popliteal Artery [employer] : VASCULAR 07/22/2017 [id number] / / [id number] 32 Patch Xenosure 0.3drx4sg - [id number] Implanted:Qty : 1 on 09/06/2017 by Talib Sheppard MD at OR [place] Right: Carotid [employer] 03/14/2023 E0.8P8 / / [id number] Graft Stent Viab [id number] - [id number] Implanted:Qty : 1 on 09/27/2017 by Talib Sheppard MD at OR [place] Left: Leg Upper [employer] 07/03/2020 [id number] / / Description:Left SFA Device Vasc Cls Cadn Mynx6/7fr - [id number] Implanted:Qty : 1 on 06/06/2018 by Andrew Mosqueda MD at OR [place] Right: SFA CARDIOVASCULAR DYNAMICS [id number] / / Stent Peripheral 7 Diam 150x80 - [id number] Implanted:Qty : 1 on 04/03/2019 by Talib Sheppard MD at OR [place] Right: Iliac [employer] : VASCULAR [id number] 01/03/2022 KWG37-75 -080-150 / / [id number] Stent Peripheral 6 [id number] - [id number] Implanted:Qty : 1 on 08/10/2019 by Talib Sheppard MD at OR [place] Right: SFA [employer] : VASCULAR [id number] 03/22/2022 YGG43-65 -150-150 / / [id number] documented as of this encounter Visit Diagnoses Diagnosis MyCode Research Other*[id number] documented in this encounter Advance Directives Latest [...] the patient have Health Care Power of Deputy Manager? Yes, in chart and reviewed as current [...] the patient have Health Care Power of Deputy Manager? Yes, not currently available Full Code 02/29/2020 [...] Agents on File Name Relationship Healthcare Agent [facility] p Communication Sunil Paul Adult Child Power of Deputy Manager Care Teams Non Destructive Tester Relationship Specialty Start Date End Date Zion Moses MD [address] [place], [place] [id number] PCP - General 04/12/07 documented as of this encounter
--- OUTSIDE RECORDS SUMMARY | 2023-12-10 23:30 | External Medical Summary | Summary of Care ---
Author Name Unknown Organization [facility] Address [address] [facility] [place] [address] Phone [phone] Care Team Providers Care Saw Boss Name Role Phone Zion Moses MD Primary Care Provider +1- [phone] Encounter Details Date Type Department Care Team (Late st Contact Info) Description 10/22/2023 Orders Only PATIENT PORTAL DO NOT DELETE THIS DEPT USED BY [place] JO [id number] Allergies No known active allergiesdocumented as of this encounter (statuses as of 10/22/2023) Medications Medication Sig Dispensed Refills Start Date End Date Status ONETOUCH [place]ICA LANCETS 33G MISCIndications:DM type 2, goal A1c below 7 Use to test blood sugar up to 6 times daily DX 250.00 100 Each 5 05/28/2015 Active Glucose Blood (ONETOUCH TEST) STRPIndications:Typ e 2 diabetes mellitus with hemoglobin A1c goal of less than 7.0% ([facility]) Use to test BG up to 6 [...] than 7.0% ([facility]) using for insulins four times a day [...] ONCE DAILY 90 Tablet 3 10/20/2023 Active documented as of this encounter (statuses as of 10/22/2023) Active Problems Problem Noted Date Diagnosed Date [...] as of this encounter (statuses as of 10/22/2023) Resolved Problems Problem Noted Date Diagnosed Date [...] closure of skin 11/21/2017 02/19/2019 Atherosclerosis of [place] ar hien of left lower extremity with [...] as of this encounter (statuses as of 10/22/2023) Immunizations Name Administration Dates Next Due Pneumococcal [...] 2:00 PM EDT Nurse Only Ancillary Department, [place] [address] [facility] [place] [address] [place], Nurse Annual Wellness [address] [facility] [place] [address] Health Maintenance Due Date Last Done Comments DISCUSS TOBACCO CESSATION (REFER TO SMARTSET #4359) 1955 Alpha-1 Antitrypsin 11/27/1971 CKD PHOS USE SMARTSET 79711 11/27/1971 Cologuard 1998 Colonoscopy 1998 Colorectal Cancer [...] Additional history exists CKD HGB USE SMARTSET 96868 12/15/202312/14, 07/14/2021, 06/12/2020, Additional history exists Depression Screening 12/15/2023 12/14/2022 O2 ASSESSMENT COMPLETED IN PAST YEAR FOR COPD 12/15/2023 12/14/2022 DTaP,Tdap,and Td Vaccines (2 - Td or Tdap) 01/26/2024 01/25/2014, 07/18/2008 Influenza Vaccine (FLU shot) (Season Ended) 2024 05/20/2011 Lipid Panel 12/15/2027 12/14/2022, 06/18, 03/07/2019, Additional history exists AAA Screening Completed 04/03/2019, 04/18, 05/10/2017, Additional history exists LUNG CANCER SCREENING - USE SMARTSET 82346 Completed 07/24/2019, 04/18/2019, 03/21/2019 Diabetic Foot Exam [...] this encounter Medical Devices Implanted Type Area Online Banking Specialist Device Identifier Shelf Expiration Date Model / Serial / Lot Stent Complete Sc 5x40 - [id number] Implanted:Qty : 1 on 05/10/2017 by Talib Sheppard [place] [facility] [place]: Popliteal Artery [employer] : VASCULAR 07/22/2017 [id number] / / [id number] 32 Patch Xenosure 0.3ymx8kv - [id number] Implanted:Qty : 1 on 09/06/2017 by Talib Sheppard MD [place] [facility] [place] Right: Carotid [employer] 03/14/2023 E0.8P8 / / [id number] Graft Stent Viab 4xku82nm - [id number] Implanted:Qty : 1 on 09/27/2017 by Talib Sheppard MD [place] [facility] [place] Left: Leg Upper [employer] 07/03/2020 [id number] / / Description:Left SFA Stent Innova [id number] - [id number] Implanted:Qty : 1 on 06/06/2018 by Andrew Mosqueda MD at [place] [facility] [place] Right: SFA [employer] 03/21/2021 [id number] / / [id number] Device [facility] Cls Cadn Mynx6/7fr - [id number] Implanted:Qty : 1 on 06/06/2018 by Andrew Mosqueda MD at [place] [facility] [place] Right: SFA CARDIOVASCULAR DYNAMICS [id number] / / Stent Peripheral 7 Diam 150x80 - [id number] Implanted:Qty : 1 on 04/03/2019 by Talib Sheppard MD at [place] [facility] [place]: Iliac [employer] : VASCULAR [id number] 01/22/2022 PBD43-52 -080-150 / / [id number] Stent Peripheral 7 Diam 150x80 - [id number] Implanted:Qty : 1 on 04/03/2019 by Talib Sheppard MD at [place] [facility] [place] Right: Iliac [employer] : VASCULAR [id number] 01/03/2022 ZNH74-99 -080-150 / / [id number] Stent Peripheral 6 [id number] - [id number] Implanted:Qty : 1 on 08/10/2019 by Talib Sheppard MD at [place] [facility] [place] Right: SFA [employer] : VASCULAR [id number] 03/22/2022 BOI87-60 -150-150 / / [id number] documented as of this encounter Advance Directives [...] the patient have Health Care Power of Home Care Specialist? Yes, in chart and reviewed as current [...] the patient have Health Care Power of Home Care Specialist? Yes, not currently available Full Code 02/29/2020 [...] Agents on File Name Relationship Healthcare Agent [facility] evie Paul Adult Child Power of Home Care Specialist Care Teams Saw Boss Relationship Specialty Start Date End Date Zion Moses MD [address] [place] [address] PCP - General 04/12/07 documented as of this encounter
--- OUTSIDE RECORDS SUMMARY | 2023-12-10 23:30 | External Medical Summary | Summary of Care ---
Author Name Unknown Organization [facility] Address [address] [place] [address] Phone [phone] Care Team Providers Care [employer] Driver Name Role Phone Blade Villasenor MD Primary Care Provider [phone]- [phone] Reason for Visit * Reason Comments eRx-Medication Refill Encounter Details Date Type Department Care Team (Late st Contact Info) Description 07/25/2023 Refill [facility] [address] [place] [address] Blade Villasenor MD [address] [place] [address] Allergies No known active allergiesdocumented as of this encounter (statuses as of 07/27/2023) Medications Medication Sig Dispensed Refills Start Date [...] hemoglobin A1c goal of less than 7.0% ([facility]) using for insulins four times a day [...] TIMES DAILY 120 Capsule 0 07/27/2023 Active Gabapentin 300 MG Oral Capsule (Neurontin) TAKE 1 CAPSULE BY MOUTH FOUR TIMES DAILY 120 Capsule 0 05/23/2023 07/27/19 24 Discontinued documented as of this encounter (statuses as of 07/27/2023) Active Problems Problem Noted Date Diagnosed Date [...] as of this encounter (statuses as of 07/27/2023) Resolved Problems Problem Noted Date Diagnosed Date [...] closure of skin 11/21/2017 02/19/2019 Atherosclerosis of iqugmiut ar hien of left lower extremity with [...] as of this encounter (statuses as of 07/27/2023) Immunizations Name Administration Dates Next Due Pneumococcal [...] Telephone Encounter - Blade Villasenor MD - 07/27/2023 11:15 AM ESTSigned Prescriptions: Disp Refills Gabapentin 300 MG Oral Capsule (Neurontin) 120 Ca*0 Sig: TAKE 1CAPSULE BY MOUTH FOUR TIMES DAILYAuthorizing Provider: BLADE VILLASENOR * Telephone Encounter - Anne Gutierrez fiberglass technician - 07/27/2023 8:45 AM EST Pending Prescriptions: Disp Refills Gabapentin 300 MG Oral Capsule [Pharmacy M*120 Ca*0 Sig: TAKE 1 CAPSULE BY MOUTH FOUR TIMES DAILY * Telephone Encounter - Anne Gutierrez, fiberglass technician - 07/27/2023 8:42 AM EST Received message from [facility] regarding patient needing appointment. Placed call to patient to advise. Unable to reach pt, as there was no answer and no VM available to leave message. Sent the patient a MyG message to advise. Bad phone number I requested new on in message Thank you for your assistance Anne Gutierrez End Touching Machine Operator II [facility] (Formerly [facility]) 07/27/2023,8:42 AM * Telephone Encounter - Yeni Russell [facility] - 07/26/2023 2:52 PM EST Pending Prescriptions: Disp Refills Gabapentin 300 MG Oral Capsule [Pharmacy M*120 Ca*0 Sig: TAKE 1 CAPSULE BY MOUTH FOUR TIMES DAILY * Telephone Encounter - Yeni Russell RPh - 07/26/2023 2:47 PM EST [facility] is currently not authorized to approve refills for the pended medication(s) per refill protocol. Please contact patient so that an appointment can be scheduled with his PRIMARY CARE provider before this refill can be authorized. After contacting patient, please forward request to Blade Villasenor MD. Last Visit: 01/27/2022 (in office), 05/13/2020 (telemedicine) Next Visit: Visit date not found Pending Prescriptions: Disp Refills Gabapentin 300 MG Oral Capsule (Neurontin*120 Ca*0 Sig: TAKE 1 CAPSULE BY MOUTH FOUR TIMES DAILY Last date the medication was ordered: 05/23/23 Pharmacy[id number] [address] Is this request for a controlled substance? No Urine Drug Screen:No results found. However, due to the size of the patient record, not all encounters were searched. Please check Results Review for a complete set of results. Patient Phone Numbers Labs: Lab Results Component Value Date/Time CREAT 1.3 (H) 12/14/2022 03:21 PM CREAT 1.13 06/12/2020 12:00 AM CREAT 0.9 06/07/2020 07:16 AM POTASSIUM 4.6 12/14/2022 03:21 PM POTASSIUM 4.4 06/12/2020 12:00 AM POTASSIUM 3.9 06/07/2020 07:16 AM TSH 1.63 06/04/2020 07:57 AM LDLCALC 113 07/14/2021 02:09 PM LDLCALC 127 03/07/2019 09:36 AM LDLDIRECT 112 12/14/2022 03:21 PM LDLDIRECT NOT APPLICABLE 03/07/2019 09:36 AM LDLDIRECT 126 03/26/2013 02:26 PM ALT 18 06/01/2020 09:38 PM HGBA1C 7.5 (H) 12/14/2022 03:21 PM HGBA1C 9.4 (H) 06/02/2020 04:08 AM Yeni Rees, PharmD PGY1 [employer] 07/26/2023 2:49 PM * Telephone Encounter - Yareli Land [facility] - 07/26/2023 1:50 PM ESTPending Prescriptions: Disp Refills Gabapentin 300 MG Oral Capsule [Pharmacy M*120 Ca*0 Sig: TAKE 1CAPSULE BY MOUTH FOUR TIMES DAILY documented in this encounter Plan of Treatment Upcoming Encounters Date Type Department Care Team (Late st Contact Info) Description 12/19/2023 2:00 PM EDT Nurse Only Ancillary Department, [facility] [address] [place] [address] [facility] [address] [place] [address] Health Maintenance Due Date Last Done Comments DISCUSS TOBACCO CESSATION (REFER TO SMARTSET #0111) 1955 COVID-19 Vaccine (#1) [birth year]29/1956 Alpha-1 Antitrypsin 11/27/1971 CKD PHOS USE SMARTSET 49748 11/27/1971 Cologuard 1998 Colonoscopy 1998 Colorectal Cancer [...] Additional history exists CKD HGB USE SMARTSET 93588 12/15/202312/14, 07/14/2021, 06/12/2020, Additional history exists Depression Screening 12/15/2023 12/14/2022 O2 ASSESSMENT COMPLETED IN PAST YEAR FOR COPD 12/15/2023 12/14/2022 DTaP,Tdap,and Td Vaccines (2 - Td or Tdap) 01/26/2024 01/25/2014, 07/18/2008 Lipid Panel 12/15/2027 12/14/2022, 06/18, 03/07/2019, Additional history exists AAA Screening Completed 04/03/2019, 04/18, 05/10/2017, Additional history exists LUNG CANCER SCREENING - USE SMARTSET 83875 Completed 07/24/2019, 04/18/2019, 03/21/2019 Diabetic Foot Exam Discontinued 09/09/2020 (U nable to do), 01/11/2018, 03/28/2017, Additional history exists GARDASIL-HPV IMMUNIZATION SERIES Aged Out No longer eligible based on patient's age to complete this topic MENINGOCOCCAL (MENACTRA/MENVEO) Aged Out No longer eligible based on patient's age to complete this topic documented as of this encounter Medical Devices Implanted Type Area Dope House Operator Helper Device Identifier Shelf Expiration Date Model / Serial / Lot Stent Complete Sc 5x40 - [id number] Implanted:Qty : 1 on 05/10/2017 by Talib Sheppard MD at [facility] [place] Left: Popliteal Artery [employer] : VASCULAR 07/22/2017 [id number] / / [id number] Patch Xenosure [id number] - [id number] Implanted:Qty : 1 on 09/06/2017 by Talib Sheppard MD at [facility] [place] Right: Carotid [employer] 03/14/2023 [id number] / / [id number] Graft Stent Viab 0igp21tp - [id number] Implanted:Qty : 1 on 09/27/2017 by Talib Sheppard MD at [facility] [place] Left: Leg Upper [employer] 07/03/2020 [id number] / / Description:Left SFA Device Vasc Cls Cadn Mynx6/7fr - [id number] Implanted:Qty : 1 on 06/06/2018 by Andrew Mosqueda MD at [facility] [place] Right: SFA [employer]ARD[employer]ASC[employer] [id number] / / Stent Peripheral 7 Diam 150x80 - [id number] Implanted:Qty : 1 on 04/03/2019 by Talib Sheppard MD at [facility] [place] Right: Iliac [employer] : VASCULAR [id number] 01/03/2022 [id number] -080-150 / / [id number] Stent Peripheral 6 [id number] - [id number] Implanted:Qty : 1 on 08/10/2019 by Talib Sheppard MD at [facility] [place] Right: SFA [employer] : VASCULAR [id number] 03/22/2022 [id number] -150-150 / / [id number] documented as of this encounter Advance Directives [...] the patient have Health Care Power of Mosquito Sprayer? Yes, in chart and reviewed as current [...] the patient have Health Care Power of Mosquito Sprayer? Yes, not currently available Full Code 02/29/2020 [...] Agents on File Name Relationship Healthcare Agent [facility] Communication Sunil Paul Adult Child Power of Mosquito Sprayer Care Teams [employer]tr [employer] Driver Relationship Specialty Start Date End Date Blade Villasenor MD [address] [place] [address] PCP - General 04/12/07 documented as of this encounter
[2023-12-10 23:43] LABS: ANTI-Xa, UFH(UnfractionatedHep 0.14 IU/ml (0.3-0.7)
[2023-12-10 23:53] LABS: Troponin I High Sensitivity 7836.1 pg/ml (0-20)
[2023-12-11] MEDS: HEPARIN SOD (PORCINE) 1000 UNIT/ML IV ONE ×2 (00:12→06:05)
[2023-12-11] MEDS: ACETAMINOPHEN 325 MG TAB PO PRN (04:01)
[2023-12-11] MEDS: MoRPHine SULFATE 2 MG/ML CARP IV STA ×2 (04:19→15:09)
[2023-12-11 05:14] LABS: Hematocrit (blood only) 43.2 % (42.0-52.0); Hemoglobin 14.5 g/dl (14.0-18.0); Mean Corpuscular Hgb Conc 33.6 g/dL (32.0-36.0); Mean Corpuscular Volume 98.2 fL (80.0-100.0); Mean Platelet Volume 10.9 fL (9.4-12.4); Platelet Count 166 K/uL (130-400); RDW Coefficient of Variation 14.3 % (11.5-14.5); RDW Standard Deviation 51.7 fL (36.4-46.3); White Blood Count 13.81 K/ul (4.8-10.8)
[2023-12-11 05:28] LABS: BUN Creatinine Ratio 29.1 (10-20); Calcium 9.6 mg/dl (8.6-10.3); Creatinine Clr Calc Pharmacy 24.2 ml/min; Est GFR (African American) 42.7 ml/min; Est GFR (Non-African American) 36.8 ml/min; Potassium 4.4 mmol/L (3.5-5.1)
[2023-12-11 05:49] LABS: ANTI-Xa, UFH(UnfractionatedHep 0.19 IU/ml (0.3-0.7)
--- NOTE | 2023-12-11 06:42 | Communication Note ---
Date of Service: December 11, 202312/10 0005: Rising troponin, asymptomatic, hemodynamically table. Aware of note for medical management only, not surgical candidate. 12/09 0420: Patient with mild CP. Ordered STAT trop. Repeat EKG unchanged. Hemodynamically stable. Provided Morphine 2 mg. Patient on BiPAP. 12/09 0600: Troponin continues to rise. Pain now controlled. Remains hemodynamically stable. CXR ordered given CHF exacerbation/pulmonary edema on presentation. Would consider diuresis if worsening pulmonary edema to offload strain on heart. Resident Activity Tracking Resident Involvement: Resident Care Provided Care Provided: Adult Hospital Medicine
[2023-12-11] MEDS: EMPAGLIFLOZIN 25 MG TAB PO SCH (08:43)
[2023-12-11] MEDS: ASPIRIN 81 MG ECTAB PO SCH (08:44)
[2023-12-11] MEDS: CLOPIDOGREL BISULFATE 75 MG TAB PO SCH (08:44)
[2023-12-11] MEDS: FUROSEMIDE 40 MG/4 ML VIAL IV SCH (08:45)
--- NOTE | 2023-12-11 09:10 | XRay Report ---
XR chest 1V portable CLINICAL HISTORY: NSTEMI/Pulm edema TECHNIQUE: Single frontal radiograph of the chest was obtained. Comparison: Comparison is made to chest radiograph 12/10/2023 FINDINGS: No lines and tubes are seen. Aortic valvular prosthesis is seen. There is prominence and cephalizatio n of the vasculature with Reyna B lines seen. Airspace opacities are in the bilateral lower lobes. N o evidence of pleural effusion or pneumothorax. IMPRESSION: Cardiomegaly and moderate pulmonary edema. Airspace opacities in the bilateral lower lobes, slightly increased in conspicuity from prior exam. This may represent aspiration, pneumonia, and/or alveolar e aliza. ACT 112: Negative or not required by law. Electronically signed by: Eduardo Scott M.D. 12/11/2023 9:08 AM
--- NOTE | 2023-12-11 09:49 | XCELERA ---
[id number] \\[id number]
--- NOTE | 2023-12-11 10:43 | Cardiology Consultation ---
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 Chest pain/NSTEMI: This is concerning, he did not have a lot of chest pain and that has resolved but his cardiac enzymes are quite high and have risen recently and he does have some ischemic changes on his electrocardiogram. On the other hand I do not think there is much role for invasive evaluation, he appears stable and based on his prior evaluation there is not a lot we can probably do. This and his increased creatinine does pose significant risk to invasive evaluation. I would continue to follow him clinically for now. Consider discontinuing heparin once troponin starts trending down. 2. Coronary disease: He has severe known coronary artery disease which has been inoperable 4 years ago. It is unlikely would have improved, it sounds as though intervention at that time was also high risk. It is possible things to be different now and we could consider intervention but given his comorbidities and the fact that it has been several days since he had his last chest pain I do not think this is indicated. I would continue his current regimen of platelet inhibitors and statin therapy. 3. Congestive heart failure: He has severe left ventricular dysfunction, this is worse than it was in 2020 which is his last measurement that I am aware of. This worsening could be due to his current presentation with ischemia, in which case there may be some recovery if it is stunning, however he may also have had progressive left ventricular dysfunction since he is on minimal heart failure medications. He seems to be tolerating them well, although his blood pressure does run quite low at times. His lisinopril is on hold, I believe due to kidney function, but should be restarted if possible. At that point however I would try low-dose Entresto to try to help his left ventricular function. We should gradually try to increase his beta-adriane, I would consider switching to carvedilol which I think is more effective over the long run. I have not done that as yet, I would prefer to restart the Entresto and switching to carvedilol could adversely affect his blood pressure. 4. Frequent PVCs: Although quite variable he very often has high frequency of PVCs. At times exceeding 10/min. This can adversely affect cardiac function, going up on beta-blockade may help if we can do that. Alternatively we can consider addition of amiodarone but I would try the beta-adriane first. History of Present Illness Reason for Consultation: Severe ischemic cardiomyopathy, NSTEMI Attending Physician: Zen Easton MD History of Present Illness This is a 68-year-old male who has a history of possible emphysema from smoking, diabetes mellitus, peripheral vascular disease with leg amputation, a prior CVA with a left carotid endarterectomy. He also has long history of congestive heart failure and severe coronary artery disease. He had a STEMI and had catheterization at [facility] on June 02, 2020. This demonstrated severe inoperable coronary artery disease, this was assessed at the time and I believe since during a brief follow-up with [facility] in 2019. He had severe left ventricular dysfunction at the time with an echocardiogram May 30, 2020 showing an ejection fraction around 35%, a prior echocardiogram May 06, 2020 showed normal left ventricular size and function. He was lost to cardiology follow-up. He presents now with decompensated congestive heart failure (chest x-ray evidence of pulmonary edema, elevated BNP, symptoms). He presented in sinus tachycardia with a borderline prolonged QRS, and old anterior myocardial infarction and lateral ST depression. There is J-point elevation in V1 and V2. Subsequent electrocardiogram suggest worsening of his J-point elevation and progressive inferior T wave abnormalities with ongoing lateral precordial ST depression. Troponin measurements done here show an elevated and rising troponin with a peak so far this morning of 9603. He also has a creatinine of 1.8 this morning, this is higher than June 2023 when it was 1.4. An echocardiogram December 11, 2023 shows severe left ventricular dysfunction with an ejection fraction felt to be 15 to 20% and his left ventricle is mildly dilated. He does have mild aortic sclerosis and mild mitral regurgitation. His weight was significantly elevated on presentation (67 kg February 03, 2023 and 80 kg December 10, 2023) and he has been diuresed. I believe his outpatient regimen consists of aspirin and clopidogrel, good dose rosuvastatin, his blood pressure has been borderline low this admission although had been elevated at times in the past although somewhat labile. Jardiance, lisinopril 2.5 mg daily and metoprolol succinate 12.5 mg twice daily. He is on the same medications here except for lisinopril which is being held, I assume for kidney function. He tells me that he had fairly severe central chest discomfort which lasted about 3 hours prior to presentation. He denies having any chest discomfort since presentation, including today. He does have some shortness of breath which has been ongoing for at least several days, probably longer. At the moment his breathing is improved. His blood pressure does run low at times but he is not having any symptoms of hypotension. Allergies Allergy/AdvReac Type Severity Reaction Status Date / Time No Known Allergies Allergy Verified 06/21/23 15:11 Home Medications Medication Instructions Recorded Confirmed Type aspirin 81 mg tablet,delayed 81 mg PO QAM 04/30/20 12/10/23 History release clopidogrel 75 mg tablet (Plavix) 75 mg PO QAM 04/30/20 12/10/23 History ascorbic acid (vitamin C) 500 mg 500 mg PO QPM 06/29/20 12/10/23 History tablet cholecalciferol (vitamin D3) 50 2,000 unit PO QAM 06/29/20 12/10/23 History mcg (2,000 unit) capsule (Vitamin D3) famotidine 20 mg tablet 20 mg PO QAM 06/29/20 12/10/23 History furosemide 20 mg tablet 20 mg PO UD 06/29/20 12/10/23 History lisinopril 2.5 mg tablet 2.5 mg PO QAM 06/29/20 12/10/23 History metoprolol succinate 25 mg 12.5 mg PO BID 06/29/20 12/10/23 History tablet,extended release 24 hr empagliflozin 25 mg tablet 25 mg PO QAM 02/10/22 12/10/23 History (Jardiance) melatonin 10 mg tablet 10 mg PO HS 02/10/22 12/10/23 History pantoprazole 40 mg tablet,delayed 40 mg PO DAILY #30 tabs 02/11/22 12/10/23 Rx release (Protonix) dulaglutide 4.5 mg/0.5 mL 4.5 mg subcut WK 06/21/23 12/10/23 History subcutaneous pen injector (Trulicity) gabapentin 300 mg capsule 300 mg PO QID 06/21/23 12/10/23 History rosuvastatin 40 mg tablet 40 mg PO UD 12/10/23 12/10/23 History Patient History Medical History MRSA infection Acute on chronic heart failure with reduced ejection fraction and diastolic dysfunction Altered mental status Leukocytosis Elevated troponin Sepsis COVID-19 ruled out Dyslipidemia Non-ST elevation (NSTEMI) myocardial infarction CHF (congestive heart failure) Echo 05/30/20 LVEF 35%. Discharge planning issues DVT prophylaxis Diabetes mellitus type 2 with complications Coronary artery disease Non-STEMI May 2020. [place] [facility] [place] severe diffuse multi-vessel disease. 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 Surgical History History of left-sided carotid endarterectomy Status post cardiac catheterization [facility] [place]- severe diffuse multi-vessel disease; medical management recommended Status post above-knee amputation of right lower extremity [facility] [place]03[place] History of right below knee amputation 11/15/[address] Sheppard History of angioplasty of peripheral vessel L LEG left popliteal artery angioplasty and stent as left AT/peroneal/TP trunk angioplasty on 05/10/[address] Sheppard left AKA on 12/19/17 09/27/17 for angioplasty/stent of the left SFA, but noted to have a BK- popliteal occlusion (would need a left fem=>AT bypass). left common femoral endarterectomy with vein patch angioplasty and common femoral artery => anterior tibial artery bypass using non-reversed left great saphenous vein 10/20/2017. R LEG RSFA stent and, angioplasty of PT/peroneal artery 06/06/[address] Mosqueda S/P right TOMMIE/TP-trunk/peroneral/PT angioplasty by Dr. Mosqueda on 10/25/18. 02/2019 again prompted additional intervention He underwent bilateral common & external iliac artery stents (one 7 x 80 mm Everflex stent on each side) and right SFA/pop/TP-trunk angioplasty by Dr. Sheppard 04/03/19. 05/09/20 He underwent balloon angioplasty of right SFA/popliteal/TP-trunk/peroneral arteries and open amputation of the R 5th toe by Dr. Sheppard on 08/10/19. 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 ALSO HAS SISTER WHO IS ABLE TO HELP NEEDED. Other Information That Helps Us Care for You: No Feels Safe at Home: Yes Diet: diabetic during the past year weight has: increased > 10 lbs Dental Care, Regularly: No Physical Activity Frequency: Does not Exercise Seatbelt Use: sometimes Sunscreen Use: No Assistive Devices: Scooter/Electric Scooter and Wheelchair Review of Systems Review of Systems: All systems reviewed & are unremarkable except as noted in HPI & below Physical Exam Physical Exam: Constitutional: Alert, cooperative and in no distress. Resting in bed eating lunch. HEENT: Unremarkable Neck: No jugular venous distention, carotid pulses are normal and equal bilaterally without bruits. Pulmonary: Bilateral basal crackles on auscultation. Cardiac: Regular rhythm with no murmur, gallop or rub. Abdomen: Soft, nontender with normal bowel sounds. Extremities: No edema. Neurologic: No focal findings. Skin: No rash, ecchymoses or petechiae. Results & Data Vital Signs (Past 12 Hours) Vital Signs Temp Pulse Pulse Resp BP Pulse Ox O2 Del Method 12/11/23 08:52 94 Nasal Cannula 12/11/23 08:39 95 Nasal Cannula 12/11/23 08:37 107/72 12/11/23 07:38 36.6 C 90 20 94/62 L 96 BiPAP 12/11/23 07:26 97 H 19 99 12/11/23 07:22 84 12/11/23 03:50 36.8 C 18 103/66 95 BiPAP 12/11/23 03:20 94 H 24 100 12/10/23 22:48 92 H 21 99 O2 Flow Rate FiO2 12/11/23 08:52 3 12/11/23 08:39 7 12/11/23 08:37 12/11/23 07:38 12/11/23 07:26 30 12/11/23 07:22 12/11/23 03:50 30 12/11/23 03:20 40 12/10/23 22:48 40 Laboratory Results Cardiac Enzymes 12/10/23 12/10/23 12/10/23 Range/Units 13:03 13:03 14:44 Troponin I High Sens 1580.9 H* Cancelled 2051.8 H* D (0-20) pg/ml B-Natriuretic Peptide 1251 H (0-100) pg/ml 12/10/23 12/11/23 Range/Units 22:57 04:53 Troponin I High Sens 7836.1 H* D 9602.6 H* D (0-20) pg/ml B-Natriuretic Peptide (0-100) pg/ml Coagulation 12/10/23 Range/Units 13:03 PT 11.2 (9.0-12.0) Seconds APTT 29 (21-31) Seconds B-Natriuretic Peptide 1251 H (0-100) pg/ml CBC 12/10/23 12/11/23 Range/Units 13:03 04:53 WBC 15.23 H 13.81 H (4.8-10.8) K/ul RBC 4.64 L 4.40 L (4.70-6.10) M/uL Hgb 15.5 14.5 (14.0-18.0) g/dl Hct 45.6 43.2 (42.0-52.0) % Plt Count 184 166 (130-400) K/uL Neut # (Auto) 13.03 H (1.40-6.50) K/uL Lymph # (Auto) 0.93 L (1.20-3.40) K/uL [place] # (Auto) 1.12 H (0.11-0.59) K/uL Eos # (Auto) 0.00 (0.00-0.50) K/uL Baso # (Auto) 0.05 (0.00-0.20) K/uL Comprehensive Metabolic Panel 12/10/23 12/11/23 Range/Units 13:03 04:53 Sodium 135 L 135 L (136-145) mmol/L Potassium 4.9 4.4 (3.5-5.1) mmol/L Chloride 102 102 (98-107) mmol/L Carbon Dioxide 24 27 (21-32) mmol/L BUN 43 H 53 H (6-23) mg/dl Creatinine 1.73 H 1.82 H (0.6-1.4) mg/dl Glucose 361 H* 170 H (70-99(Fasting)) mg/dl Calcium 9.8 9.6 (8.6-10.3) mg/dl Intake and Output 12/10/23 12/11/23 12/11/23 22:59 06:59 14:59 Intake Total 42.5 / 420.767 378.267 / 420.767 20.267 / 20.267 Output Total 650 / 650 Balance -607.5 / -229.233 378.267 / -229.233 20.267 / 20.267 Intake: IV 42.5 / 220.767 178.267 / 220.767 20.267 / 20.267 Heparin Sodium/Dextrose 25,000 42.5 / 220.767 178.267 / 220.767 20.267 / 20.267 units In 500 ml @ 850 UNITS/HR 17 mls/hr IV .Q24H [facility] Rx#: [id number] Oral 200 / 200 Output: Urine 650 / 650 Other: Weight 79.7 kg 74.2 kg Weight Measurement Method [facility] Diagnostic Findings Telemetry: Sinus rhythm and sinus tachycardia, frequent PVCs, with a lot of variability. 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
[2023-12-11 12:31] LABS: ANTI-Xa, UFH(UnfractionatedHep 0.21 IU/ml (0.3-0.7)
[2023-12-11] MEDS: NITROGLYCERIN SL 0.4 MG/TAB TAB ONE (13:26)
[2023-12-11] MEDS: NITROGLYCERIN 2% OINTMENT 30GM TUBE EXT ONE (13:30)
--- NOTE | 2023-12-11 13:38 | Hospitalist Progress Note ---
Date of Service December 11, 2023 Assessment & Plan (1) Acute hypoxic respiratory failure: Plan: 2nd to acute/chronic systolic CHF with resulting pulmonary edema. I cannot rule out a concomitant pneumonia process. Cannot rule out COPD exacerbation. Continue BIPAP - recommended he use this for the rest of the night until the am to facilitate diuresis and improve his overall status. CHF -> diurese. ?pneumonia -> rocephin/doxycycline. (2) Acute on chronic systolic heart failure: Plan: Previous EF, per records, was 35% in 2019. Now 15-20% on echo today. 2nd ischemic cardiomyopathy. s/p lasix IV since admission with good UOP response. However, remains in distress as noted in #1 above. Cont IV lasix 40mg BID. BIPAP. Cont metoprolol succ 12.5mg BID. At this time, due to NANCY, POONAM/ARB/Entresto cannot be employed. Appreciate cardiology assistance. Of note - in 2019 his advanced CAD was deemed inoperable and not amenable to stenting either. His records were reviewed by CT surgery at [facility] last evening and again our medical team was told he was not a candidate for any intervention; medical management advised. (3) NSTEMI (non-ST elevated myocardial infarction): Plan: Clinical history, EKG, labs, etc are c/w NSTEMI. Peak HS troponin 9600. Most recent troponin is now <9000. Medical management only; no plans for cath. Cont low-dose heparin infusion. Cont asa. Cont plavix. Cont metoprolol succinate 12.5mg BID. Resume statin. Check lipids while here. Last LDL was >100 in 07/09. Repeat his lipids while here. Appreciate recs from [facility]. Despite the recurrent chest pain today his troponin did not rise further; it peaked and decreased. If he were to have recurrent, refractory chest pain may need to use nitro infusion. Otherwise - SL nitro + morphine IV prn. (4) CAD in [place] artery: Plan: By report: [facility] [place] cath -- Heavily calcified 90% LMCA extending to the trifurcation of LAD, ramus, and dominant circumflex. 99% subtotal occlusion of mid LCx after giving off a large OM1, 80% stenosis of proximal ramus, 80% stenosis of proximal LAD, 80% stenosis of mid nondominant RCA. His severe, multivessel disease was felt NOT amenable to PCI or bypass and was recommended for medical management at that time. Now with NSTEMI - see #. His CAD and CHF are advanced - if we can get him through this hospitalization he would be a candidate for hospice. (5) NANCY (acute kidney injury): Plan: creatinine was 1.1 in January 2023, then 1.4 in June 2023, then 1.7 at presentation last night. today - Cr level x 2 --> 1.8. cardiorenal likely etiology. serial BMPs. (6) Emphysema of lung: Plan: Wheezing could be due to COPD or pulmonary edema or both. Diurese. Bronchodilators. b/l basilar infiltrates on cxr - given his cough, leukocytosis, etc - will cover for pneumonia with IV rocephin/doxycycline. (7) Carotid artery disease: Plan: Cont asa, plavix, statin. (8) DM type 2 (diabetes mellitus, type 2): Plan: Last Hba1c was 06/2023 - 7.6%. Uncontrolled due to stress of #1, #2, #3. Cont basal-bolus insulin; adjust as needed. (9) Dyslipidemia: Plan: Check lipids while here. Resume statin - crestor 40mg daily. (10) GERD (gastroesophageal reflux disease): Plan: Resume protonix 40mg daily (11) Peripheral vascular disease: Plan: SEVERE carotid disease extensive PAD of legs s/p numerous interventions with ultimate b/l AKA (12) Tobacco dependence: Plan: ongoing tobacco dependence nicoderm patch, if desired (13) History of CVA (cerebrovascular accident): Plan: basal ganglia stroke by history cont asa/plavix/statin for secondary prevention (14) Hx of AKA (above knee amputation): Plan: b/l (15) DVT prophylaxis: Plan: heparin low-dose Plan updated pt's son, "," extensively by phone this evening reviewed all problems and the tenuous nature of his father's current medical status he voiced understanding code status - remains full, but patient leaning towards DNR/DNI VERY complex care coordination and treatment in this borderline critically ill patient Multiple bedside visits, multiple updates given to family (son, clinton), interpretation of data/x-rays/etc, multiple assessments - total time 90 minutes Admission and Anticipated Discharge Date Admission Date: December 10, 2023 Subjective saw patient multiple times throughout the day first visit he was extremely dyspneic - he was lying flat and had obvious orthopnea I sat him up and his breathing did improve he was having chest pain in the left lower chest gave nitro SL x 1 -- pain improved from 5 to 3 ultimately gave morphine IV and topical nitropaste with resolution of the pain however, he developed hypotension with the above measures and the nitropaste had to be removed 1-2 hours later despite his soft BPs he was making adequate urine throughout the day his chest pain did not recur later in the day he did have recurrent dyspnea about 1800 in the evening I checked on him again and he was visibly dyspneic advised placing him back on the BIPAP and giving a duoneb additional lasix given following the above measures his dyspnea once again improved tele overnight - NSR with PVCs and bigem late in the day I discussed code status with him he admitted he had never discussed these things with his son, fiance, sister, or other family members we reviewed intubation, defibrillation, and CPR he wasn't entirely sure but he was leaning towards being DNR/DNI Review of Systems Review of Systems: gen - no fevers but he has been off/on diaphoretic throughout the day cv - chest pain - see HPI pulm - cough, wheezing, dyspnea at rest GI - no abd pain; no vomiting today but had such yesterday Physical Exam Physical Exam: gen - in distress, uncomfortable, tachypneic - but able to answer questions and follow commands neck - mild JVD present mouth - MM dry heart - irregular, s1 s2, regular rate, 1/6 systolic murmur LLSB lungs - diffuse rales b/l bases, end-exp wheeze, tachypneic abd - soft NT ND BS+ ext - b/l AKA psych - a/o x 3 skin - diaphoretic Results & Data Results & Data Vital Signs (Past 12 Hours) Vital Signs Temp Pulse Pulse Resp BP Pulse Ox O2 Del Method 12/11/23 11:15 36.6 C 86 18 95/66 L 91 Nasal Cannula 12/11/23 08:52 94 Nasal Cannula 12/11/23 08:39 95 Nasal Cannula 12/11/23 08:37 107/72 12/11/23 07:38 36.6 C 90 20 94/62 L 96 BiPAP 12/11/23 07:26 97 H 19 99 12/11/23 07:22 84 12/11/23 03:50 36.8 C 18 103/66 95 BiPAP 12/11/23 03:20 94 H 24 100 O2 Flow Rate FiO2 12/11/23 11:15 3 12/11/23 08:52 3 12/11/23 08:39 7 12/11/23 08:37 12/11/23 07:38 12/11/23 07:26 30 12/11/23 07:22 12/11/23 03:50 30 12/11/23 03:20 40 Laboratory Results Laboratory Results - last 48 hr 12/10/23 12/10/23 12/10/23 13:03 13:03 13:09 WBC 15.23 H RBC 4.64 L Hgb 15.5 POC Hgb 16.0 Hct 45.6 POC Hct 47 MCV 98.3 MCH 33.4 MCHC 34.0 RDW Std Deviation 51.7 H RDW Coeff of Martin 14.2 Plt Count 184 MPV 11.0 Immature Gran % (Auto) 0.7 Neut % (Auto) 85.5 Lymph % (Auto) 6.1 Carbon % (Auto) 7.4 Eos % (Auto) 0.0 Baso % (Auto) 0.3 Neut # (Auto) 13.03 H Lymph # (Auto) 0.93 L Carbon # (Auto) 1.12 H Eos # (Auto) 0.00 Baso # (Auto) 0.05 Immature Gran # (Auto) 0.10 PT 11.2 INR 1.0 APTT 29 PTT Ratio 1.1 Heparin Anti-Xa, Unfract VBG pH 7.41 VBG pCO2 40 VBG pO2 38 VBG HCO3 25 VBG O2 Saturation 69.1 VBG Base Excess 0.7 POC Sodium 136 Sodium 135 L POC Potassium 5.0 Potassium 4.9 POC Chloride 104 Chloride 102 Carbon Dioxide 24 POC Total CO2 23 L Anion Gap 9 POC Anion Gap 15.0 L POC BUN 39 H BUN 43 H Creatinine 1.73 H POC Creatinine 1.7 H Est Cr Clr Drug Dosing 25.5 Est GFR ( Amer) 45.4 Est GFR (Non-Af Amer) 39.1 BUN/Creatinine Ratio 24.9 H Glucose 361 H* POC Glucose POC Glucose (other) 345 H Calcium 9.8 POC Ioniz Calcium Daysi 1.21 Magnesium Troponin I High Sens 1580.9 H* Cancelled B-Natriuretic Peptide 1251 H Lipase 11 SARS-CoV-2 (PCR) NEGATIVE Influenza Type A (PCR) Negative Influenza Type B (PCR) Negative RSV (RT-PCR) Negative 12/10/23 12/10/23 12/10/23 14:44 16:41 20:00 WBC RBC Hgb POC Hgb Hct POC Hct MCV MCH MCHC RDW Std Deviation RDW Coeff of Martin Plt Count MPV Immature Gran % (Auto) Neut % (Auto) Lymph % (Auto) Carbon % (Auto) Eos % (Auto) Baso % (Auto) Neut # (Auto) Lymph # (Auto) Carbon # (Auto) Eos # (Auto) Baso # (Auto) Immature Gran # (Auto) PT INR APTT PTT Ratio Heparin Anti-Xa, Unfract VBG pH VBG pCO2 VBG pO2 VBG HCO3 VBG O2 Saturation VBG Base Excess POC Sodium Sodium POC Potassium Potassium POC Chloride Chloride Carbon Dioxide POC Total CO2 Anion Gap POC Anion Gap POC BUN BUN Creatinine POC Creatinine Est Cr Clr Drug Dosing Est GFR ( Amer) Est GFR (Non-Af Amer) BUN/Creatinine Ratio Glucose POC Glucose 188 H 184 H POC Glucose (other) Calcium POC Ioniz Calcium Daysi Magnesium Troponin I High Sens 2051.8 H* D B-Natriuretic Peptide Lipase SARS-CoV-2 (PCR) Influenza Type A (PCR) Influenza Type B (PCR) RSV (RT-PCR) 12/10/23 12/11/23 12/11/23 22:57 04:53 07:29 WBC 13.81 H RBC 4.40 L Hgb 14.5 POC Hgb Hct 43.2 POC Hct MCV 98.2 MCH 33.0 MCHC 33.6 RDW Std Deviation 51.7 H RDW Coeff of Martin 14.3 Plt Count 166 MPV 10.9 Immature Gran % (Auto) Neut % (Auto) Lymph % (Auto) Carbon % (Auto) Eos % (Auto) Baso % (Auto) Neut # (Auto) Lymph # (Auto) Carbon # (Auto) Eos # (Auto) Baso # (Auto) Immature Gran # (Auto) PT INR APTT PTT Ratio Heparin Anti-Xa, Unfract 0.14 L 0.19 L VBG pH VBG pCO2 VBG pO2 VBG HCO3 VBG O2 Saturation VBG Base Excess POC Sodium Sodium 135 L POC Potassium Potassium 4.4 POC Chloride Chloride 102 Carbon Dioxide 27 POC Total CO2 Anion Gap 6 POC Anion Gap POC BUN BUN 53 H Creatinine 1.82 H POC Creatinine Est Cr Clr Drug Dosing 24.2 Est GFR ( Amer) 42.7 Est GFR (Non-Af Amer) 36.8 BUN/Creatinine Ratio 29.1 H Glucose 170 H POC Glucose 206 H POC Glucose (other) Calcium 9.6 POC Ioniz Calcium Daysi Magnesium 2.0 Troponin I High Sens 7836.1 H* D 9602.6 H* D B-Natriuretic Peptide Lipase SARS-CoV-2 (PCR) Influenza Type A (PCR) Influenza Type B (PCR) RSV (RT-PCR) 12/11/23 12/11/23 12/11/23 11:03 11:51 16:27 WBC RBC Hgb POC Hgb Hct POC Hct MCV MCH MCHC RDW Std Deviation RDW Coeff of Martin Plt Count MPV Immature Gran % (Auto) Neut % (Auto) Lymph % (Auto) Carbon % (Auto) Eos % (Auto) Baso % (Auto) Neut # (Auto) Lymph # (Auto) Carbon # (Auto) Eos # (Auto) Baso # (Auto) Immature Gran # (Auto) PT INR APTT PTT Ratio Heparin Anti-Xa, Unfract 0.21 L VBG pH VBG pCO2 VBG pO2 VBG HCO3 VBG O2 Saturation VBG Base Excess POC Sodium Sodium POC Potassium Potassium POC Chloride Chloride Carbon Dioxide POC Total CO2 Anion Gap POC Anion Gap POC BUN BUN Creatinine POC Creatinine Est Cr Clr Drug Dosing Est GFR ( Amer) Est GFR (Non-Af Amer) BUN/Creatinine Ratio Glucose POC Glucose 198 H 98 POC Glucose (other) Calcium POC Ioniz Calcium Daysi Magnesium Troponin I High Sens B-Natriuretic Peptide Lipase SARS-CoV-2 (PCR) Influenza Type A (PCR) Influenza Type B (PCR) RSV (RT-PCR) 12/11/23 12/11/23 12/11/23 17:12 18:31 20:09 WBC RBC Hgb POC Hgb Hct POC Hct MCV MCH MCHC RDW Std Deviation RDW Coeff of Martin Plt Count MPV Immature Gran % (Auto) Neut % (Auto) Lymph % (Auto) Carbon % (Auto) Eos % (Auto) Baso % (Auto) Neut # (Auto) Lymph # (Auto) Carbon # (Auto) Eos # (Auto) Baso # (Auto) Immature Gran # (Auto) PT INR APTT PTT Ratio Heparin Anti-Xa, Unfract 0.15 L VBG pH VBG pCO2 VBG pO2 VBG HCO3 VBG O2 Saturation VBG Base Excess POC Sodium Sodium 136 POC Potassium Potassium 4.1 POC Chloride Chloride 102 Carbon Dioxide 26 POC Total CO2 Anion Gap 8 POC Anion Gap POC BUN BUN 53 H Creatinine 1.84 H POC Creatinine Est Cr Clr Drug Dosing 39.2 Est GFR ( Amer) 42.1 Est GFR (Non-Af Amer) 36.3 BUN/Creatinine Ratio 28.8 H Glucose 104 H POC Glucose 145 H POC Glucose (other) Calcium 9.1 POC Ioniz Calcium Daysi Magnesium Troponin I High Sens 8896.3 H* B-Natriuretic Peptide Lipase SARS-CoV-2 (PCR) Influenza Type A (PCR) Influenza Type B (PCR) RSV (RT-PCR) Diagnostic Findings Chest X-Ray 12/11/23 06:38 XR chest 1V portable CLINICAL HISTORY: NSTEMI/Pulm edema TECHNIQUE: Single frontal radiograph of the chest was obtained. Comparison: Comparison is made to chest radiograph 12/10/2023 FINDINGS: No lines and tubes are seen. Aortic valvular prosthesis is seen. There is prominence and cephalization of the vasculature with Reyna B lines seen. Airspace opacities are in the bilateral lower lobes. No evidence of pleural effusion or pneumothorax. IMPRESSION: Cardiomegaly and moderate pulmonary edema. Airspace opacities in the bilateral lower lobes, slightly increased in conspicuity from prior exam. This may rep resent aspiration, pneumonia, and/or alveolar edema. ACT 112: Negative or not required by law. Electronically signed by: Eduardo Scott M.D. 12/11/2023 9:08 AM Echo - EF 15-20%, multiple WMAs EKGs - multiple - NSR, lateral ST depressions PG Care Time/CCT Total # of Minutes Spent Total Time Spent with Patient: Total time spent is greater than 50% in coordination of care (as documented) at patient's floor/unit and/or counseling patient: Prolonged Care Time Prolonged Care Time: Yes Total Prolonged Care Time: 90 Coding Level of Care Code 81944 SUB INP/OBS CARE 3/50MIN (25 - SIGNIFICANT, SEPARATELY IDENTIFIABLE ) Diagnoses Acute hypoxic respiratory failure J96.01 Acute on chronic systolic heart failure I50.23 NSTEMI (non-ST elevated myocardial infarction) I21.4 CAD in [place] artery I25.10 NANCY (acute kidney injury) N17.9 Pulmonary emphysema, unspecified emphysema type J43.9 Emphysema type: unspecified Carotid artery disease I77.9 Type 2 diabetes mellitus with diabetic neuropathy, with long-term current use of insulin E11.40; Z79.4 Diabetes mellitus complication detail: with unspecified neuropathy Diabetes mellitus complication status: with neurologic complications Diabetes mellitus half-way insulin use: with half-way use Dyslipidemia E78.5 GERD (gastroesophageal reflux disease) K21.9 Peripheral vascular disease I73.9 Tobacco dependence F17.200 History of CVA (cerebrovascular accident) Z86.73 Hx of AKA (above knee amputation) Z89.619 DVT prophylaxis Z29.9 Additional Codes Prolonged Care Time - Prolonged Care Time: Yes ([id number]) (6) Emphysema of lung Emphysema type: unspecified Qualified Code(s): J43.9 - Emphysema, unspecified (8) DM type 2 (diabetes mellitus, type 2) Diabetes mellitus complication detail: with unspecified neuropathy Diabetes mellitus complication status: with neurologic complications Diabetes mellitus half-way insulin use: with terminal carman use Qualified Code(s): E11.40 - Type 2 diabetes mellitus with diabetic neuropathy, unspecified; Z79.4 - ocean transportation intermediary (current) use of insulin
[2023-12-11 17:42] LABS: BUN Creatinine Ratio 28.8 (10-20); Calcium 9.1 mg/dl (8.6-10.3); Creatinine Clr Calc Pharmacy 39.2 ml/min; Est GFR (African American) 42.1 ml/min; Est GFR (Non-African American) 36.3 ml/min; Potassium 4.1 mmol/L (3.5-5.1)
[2023-12-11 17:50] LABS: Troponin I High Sensitivity 8896.3 pg/ml (0-20)
[2023-12-11] MEDS: ALBUT/IPRATROP 3MG/0.5MG NEB 3 ML VIAL NEB STA (18:31)
[2023-12-11 19:06] LABS: ANTI-Xa, UFH(UnfractionatedHep 0.15 IU/ml (0.3-0.7)
[2023-12-11] MEDS ORDERED: NITROGLYCERIN 0.6 MG/1 TAB 100 TAB BTL SL PRN (19:39)
[2023-12-11] MEDS ORDERED: MoRPHine SULFATE 2 MG/ML CARP IV PRN (19:39)
[2023-12-11] MEDS: HEPARIN IV BOLUS 2,000 UNITS in SYRINGE 0 ML IV ONE (20:17)
[2023-12-11] MEDS: cefTRIAXone SODIUM 2,000 MG/50 ML BAG IV SCH (20:21)
--- NOTE | 2023-12-11 20:50 | Electrocardiogram Report ---
Test Reason : Blood Pressure : / mmHG Vent. Rate : 115 BPM Atrial Rate : 115 BPM P-R Int : 188 ms QRS Dur : 108 ms QT Int : 316 ms P-R-T Axes : 067 063 166 degrees QTc Int : 437 ms Sinus tachycardia Septal infarct (cited on or before 29-JUN-2020) Abnormal ECG When compared with ECG of 10-FEB-2022 22:00, Lateral ischemia is now present Confirmed by León Villarreal ([id number]) on 12/11/2023 8:50:10 PM Referred By: REFERRED SELF Confirmed By:León Villarreal
[2023-12-11] MEDS: DOXYCYCLINE HYCLATE 100 MG in DEXTROSE 5% MINI-B 100 ML IV SCH (20:56)
--- NOTE | 2023-12-11 21:08 | Electrocardiogram Report ---
Test Reason : Blood Pressure : / mmHG Vent. Rate : 104 BPM Atrial Rate : 104 BPM P-R Int : 168 ms QRS Dur : 102 ms QT Int : 340 ms P-R-T Axes : 018 066 217 degrees QTc Int : 447 ms Poor data quality, interpretation may be adversely affected Sinus tachycardia with frequent Premature ventricular complexes Septal infarct (cited on or before 29-JUN-2020) Marked ST abnormality, possible inferior subendocardial injury Abnormal ECG When compared with ECG of 10-DEC-2023 13:04, (unconfirmed) Premature ventricular complexes are now Present Confirmed by León Villarreal ([id number]) on 12/11/2023 9:07:53 PM Referred By: REFERRED SELF Confirmed By:León Villarreal
--- NOTE | 2023-12-11 21:52 | Electrocardiogram Report ---
Test Reason : Blood Pressure : / mmHG Vent. Rate : 092 BPM Atrial Rate : 092 BPM P-R Int : 148 ms QRS Dur : 106 ms QT Int : 370 ms P-R-T Axes : -02 070 217 degrees QTc Int : 457 ms Sinus rhythm with frequent Premature ventricular complexes Cannot rule out Anterior infarct (cited on or before 29-JUN-2020) Abnormal ECG When compared with ECG of 10-DEC-2023 15:33, (unconfirmed) No significant change was found Confirmed by León Villarreal ([id number]) on 12/11/2023 9:52:24 PM Referred By: REFERRED SELF Confirmed By:León Villarreal
--- NOTE | 2023-12-11 21:54 | Electrocardiogram Report ---
Test Reason : Blood Pressure : / mmHG Vent. Rate : 090 BPM Atrial Rate : 090 BPM P-R Int : 200 ms QRS Dur : 108 ms QT Int : 366 ms P-R-T Axes : 065 083 213 degrees QTc Int : 447 ms Sinus rhythm with occasional Premature ventricular complexes Cannot rule out Anterior infarct (cited on or before 29-JUN-2020) Abnormal ECG When compared with ECG of 11-DEC-2023 00:23, (unconfirmed) No significant change was found Confirmed by León Villarreal ([id number]) on 12/11/2023 9:54:21 PM Referred By: REFERRED SELF Confirmed By:León Villarreal
[2023-12-12 02:58] LABS: Hematocrit (blood only) 44.9 % (42.0-52.0); Hemoglobin 15.2 g/dl (14.0-18.0); Mean Corpuscular Hgb Conc 33.9 g/dL (32.0-36.0); Mean Corpuscular Volume 97.6 fL (80.0-100.0); Mean Platelet Volume 11.2 fL (9.4-12.4); Platelet Count 179 K/uL (130-400); RDW Coefficient of Variation 14.2 % (11.5-14.5); RDW Standard Deviation 51.3 fL (36.4-46.3)
[2023-12-12 03:22] LABS: Calcium 9.4 mg/dl (8.6-10.3); Potassium 4.2 mmol/L (3.5-5.1)
[2023-12-12 03:27] LABS: Creatinine Clr Calc Pharmacy 36.1 ml/min; Est GFR (African American) 38.1 ml/min; Est GFR (Non-African American) 32.8 ml/min
[2023-12-12 03:28] LABS: ANTI-Xa, UFH(UnfractionatedHep 0.28 IU/ml (0.3-0.7)
[2023-12-12] MEDS: GABAPENTIN 100 MG CAP PO SCH (08:28)
[2023-12-12] MEDS: ROSUVASTATIN CALCIUM 20 MG TAB PO SCH (08:28)
--- NOTE | 2023-12-12 09:06 | Cardiology Progress Note ---
Date of Service December 12, 2023 Assessment & Plan (1) NSTEMI (non-ST elevated myocardial infarction): (2) CAD in [place] artery: (3) Chronic systolic heart failure: (4) Frequent PVCs: Plan 1. Chest pain/NSTEMI: Biomarkers are not trending down. Currently pain-free. This may account for his significantly reduced LV systolic function although the chronicity of the cardiomyopathy is unclear. Heparin was discontinued yesterday. Currently on dual anti-platelet therapy and beta-blockade. No options for revascularization. 2. Coronary disease: No current options for revascularization. Continue dual anti-platelet therapy and high-dose rosuvastatin. To determine if more aggressive therapy in this regard is warranted. 3. Congestive heart failure: Improved. He affected a good diuresis yesterday. Continuing on intravenous diuretics. He appears to have an element of acute kidney injury that hopefully will resolve with time. Ideally we would be more aggressive with respect to his cardiomyopathy. However, addition of any agent at this point seems difficult given his acute kidney injury. 4. Frequent PVCs: No symptoms. Admission and Anticipated Discharge Date Admission Date: December 10, 2023 Subjective . He did not report any current symptoms of chest discomfort. He has not been out of bed. He did not report dizziness. He was not aware of any palpitations or rapid heartbeats over the course of the evening. No dizziness or lightheadedness. Review of Systems Review of Systems: Per HPI Physical Exam Physical Exam: Constitutional: Alert, cooperative and in no distress. Resting in bed eating breakfast. HEENT: Unremarkable Pulmonary: Apices are clear. Normal respiratory effort. Cardiac: Regular rhythm with occasional ectopy. no murmur, gallop or rub. Neurologic: No focal findings. Skin: No rash, ecchymoses or petechiae. Results & Data Vital Signs (Past 12 Hours) Vital Signs Temp Pulse Pulse Resp BP Pulse Ox O2 Del Method 12/12/23 07:20 36.4 C L 83 21 118/77 97 BiPAP 12/12/23 03:00 36.3 C L 87 23 97/62 L 95 BiPAP 12/12/23 02:30 92 H 20 96 12/11/23 23:14 87 18 96 12/11/23 22:43 36.6 C 93 H 25 H 110/69 96 BiPAP FiO2 12/12/23 07:20 12/12/23 03:00 12/12/23 02:30 30 12/11/23 23:14 30 12/11/23 22:43 Laboratory Results Abnormal Lab Results 12/11/23 12/11/23 12/11/23 11:03 11:51 16:27 WBC RBC Hgb Hct MCV MCH MCHC RDW Std Deviation RDW Coeff of Martin Plt Count MPV Heparin Anti-Xa, Unfract 0.21 L Sodium Potassium Chloride Carbon Dioxide Anion Gap BUN Creatinine Est Cr Clr Drug Dosing Est GFR ( Amer) Est GFR (Non-Af Amer) BUN/Creatinine Ratio Glucose POC Glucose 198 H 98 Calcium Troponin I High Sens 12/11/23 12/11/23 12/11/23 17:12 18:31 20:09 WBC RBC Hgb Hct MCV MCH MCHC RDW Std Deviation RDW Coeff of Martin Plt Count MPV Heparin Anti-Xa, Unfract 0.15 L Sodium 136 Potassium 4.1 Chloride 102 Carbon Dioxide 26 Anion Gap 8 BUN 53 H Creatinine 1.84 H Est Cr Clr Drug Dosing 39.2 Est GFR ( Amer) 42.1 Est GFR (Non-Af Amer) 36.3 BUN/Creatinine Ratio 28.8 H Glucose 104 H POC Glucose 145 H Calcium 9.1 Troponin I High Sens 8896.3 H* 12/12/23 12/12/23 02:29 07:03 WBC 12.40 H RBC 4.60 L Hgb 15.2 Hct 44.9 MCV 97.6 MCH 33.0 MCHC 33.9 RDW Std Deviation 51.3 H RDW Coeff of Martin 14.2 Plt Count 179 MPV 11.2 Heparin Anti-Xa, Unfract 0.28 L Sodium 138 Potassium 4.2 Chloride 99 Carbon Dioxide 29 Anion Gap 10 BUN 56 H Creatinine 2.00 H Est Cr Clr Drug Dosing 36.1 Est GFR ( Amer) 38.1 Est GFR (Non-Af Amer) 32.8 BUN/Creatinine Ratio 28.0 H Glucose 106 H POC Glucose 105 H Calcium 9.4 Troponin I High Sens Diagnostic Findings 12/11/2023: Severely reduced LV systolic function with ejection fraction of 15- 20%. Mild mitral regurgitation. Mild dilation inferior vena cava. PG Care Time/CCT Total # of Minutes Spent Total Time Spent with Patient: Total time spent is greater than 50% in coordination of care (as documented) at patient's floor/unit and/or counseling patient: Coding Level of Care Code 72910 SUB INP/OBS CARE MIN Diagnoses NSTEMI (non-ST elevated myocardial infarction) I21.4 CAD in [place] artery I25.10 Chronic systolic heart failure I50.22 Frequent PVCs I49.3
[2023-12-12 11:53] LABS: ANTI-Xa, UFH(UnfractionatedHep 0.24 IU/ml (0.3-0.7)
[2023-12-12 17:48] LABS: ANTI-Xa, UFH(UnfractionatedHep 0.26 IU/ml (0.3-0.7)
--- NOTE | 2023-12-12 20:01 | Hospitalist Progress Note ---
Date of Service December 12, 2023 Assessment & Plan (1) Acute hypoxic respiratory failure: Plan: 2nd to acute/chronic systolic CHF with resulting pulmonary edema. I cannot rule out a concomitant pneumonia process. s/p BIPAP since admission and overnight - now much improved. acute/chronic CHF -> diurese. concern for pneumonia -> cont rocephin/doxycycline. (2) Acute on chronic systolic heart failure: Plan: Previous EF, per records, was 35% in 2020. Now 15-20% on echo this admission. 2nd ischemic cardiomyopathy. Pt and his fiance confirm he had not seen cardiology "in years" prior to this admission. s/p lasix IV since admission with good UOP response. Cont IV lasix 40mg BID today but with rising creatinine will put the lasix on hold after tonight's dose. Repeat BMP in am to ensure creatinine is stable; if stable can resume lasix tomorrow. Cont metoprolol succ -- increasing to 25mg BID. At this time, due to NANCY, POONAM/ARB/Entresto cannot be employed. Appreciate cardiology assistance. Of note - in 2019 his advanced CAD was deemed inoperable and not amenable to stenting either. His records were reviewed by CT surgery at [facility] on the night of this admission and again our medical team was told he was not a candidate for any intervention; medical management advised. (3) NSTEMI (non-ST elevated myocardial infarction): Plan: Clinical history, EKG, labs, etc are c/w NSTEMI. Peak HS troponin 9600. Most recent troponin is now <9000. Medical management only; no plans for cath. s/p low-dose heparin infusion x 48+ hours --> can stop. Cont asa. Cont plavix. Cont metoprolol succinate 25mg BID. Resumed statin. Check lipids while here. Last LDL was >100 in 07/09. Appreciate recs from [facility] [place] Cardiology. SL nitro + morphine IV prn. (4) CAD in [place] artery: Plan: By report: [facility] [place] 2019 cath -- Heavily calcified 90% LMCA extending to the trifurcation of LAD, ramus, and dominant circumflex. 99% subtotal occlusion of mid LCx after giving off a large OM1, 80% stenosis of proximal ramus, 80% stenosis of proximal LAD, 80% stenosis of mid nondominant RCA. His severe, multivessel disease was felt NOT amenable to PCI or bypass and was recommended for medical management at that time. Now with NSTEMI - see above. His CAD and CHF are advanced - strongly advise palliative care consultation. (5) Pneumonia: Plan: b/l basilar suspected poor appetite, leukocytosis at admission, ongoing cough, prior vomiting at home (could he have vomited?) cont rocephin & doxycycline - day #2 of such (6) NANCY (acute kidney injury): Plan: creatinine was 1.1 in January 2023, then 1.4 in June 2023, then 1.7 at presentation this admission. today - Cr now 2 in the setting of the above events. cardiorenal. place lasix on hold after this evening's dose and recheck BMP in am. (7) Emphysema of lung: Plan: Wheezing improved today. Suspect it was "cardiac wheezing" from his pulmonary edema. b/l basilar infiltrates on cxr - given his cough, leukocytosis, etc - covering for pneumonia with IV rocephin/doxycycline. (8) Carotid artery disease: Plan: Cont asa, plavix, statin. (9) DM type 2 (diabetes mellitus, type 2): Plan: Last Hba1c was 06/2023 - 7.6%. repeat a1c in am. Uncontrolled due to stress of #1, #2, #3 but BSGs improved. Cont basal-bolus insulin; adjust as needed. (10) Dyslipidemia: Plan: Check lipids while here. Cont crestor 40mg daily. (11) GERD (gastroesophageal reflux disease): Plan: Cont protonix 40mg daily (12) Peripheral vascular disease: Plan: SEVERE * carotid disease * extensive PAD of legs s/p numerous interventions with ultimate b/l AKA (13) Tobacco dependence: Plan: ongoing tobacco dependence pre-admission nicoderm patch 7mg to be ordered (14) History of CVA (cerebrovascular accident): Plan: basal ganglia stroke by history cont asa/plavix/statin for secondary prevention (15) Hx of AKA (above knee amputation): Plan: b/l (16) DVT prophylaxis: Plan: heparin low-dose for his NSTEMI employed once off revert to heparin SC Plan updated pt's son, "JR" extensively by phone 12/10; phone - [phone] updated pt's sister, fiance, [id number] at bedside today code status - remains full, but patient leaning towards DNR/DNI STRONGLY RECOMMEND palliative care consultation given end-stage heart disease and high risk of recurring cardiac issues/complications Admission and Anticipated Discharge Date Admission Date: December 10, 2023 Subjective tele overnight - NSR no NSVT pt wore BIPAP all night does feel better today did NOT have any recurrent chest pains today dyspnea is improved wheezing is improved still with very poor appetite continues with cough pt's fiance, [id number], and sister were at bedside we discussed poor prognosis due to advanced, inoperable CAD and advanced CHF Review of Systems Review of Systems: gen - no fevers cv - no chest pains; +orthopnea GI - no N/V pulm - no sputum Physical Exam Physical Exam: gen - looks better today; no distress; awake/alert; coughing neck - no JVD mouth - MM dry heart - irregular, s1 s2, regular rate, 1/6 systolic murmur LLSB lungs - minimal rales b/l bases, no wheezes today; no increased work of breathing abd - soft NT ND BS+ ext - b/l AKA psych - a/o x 3 Results & Data Results & Data Vital Signs (Past 12 Hours) Vital Signs Temp Pulse Pulse Resp BP Pulse Ox O2 Del Method 12/12/23 19:16 36.8 C 84 18 100/63 94 Nasal Cannula 12/12/23 19:16 Nasal Cannula 12/12/23 15:07 36.7 C 81 20 111/69 97 Nasal Cannula 12/12/23 14:00 89 12/12/23 11:32 36.6 C 81 17 105/64 94 Nasal Cannula O2 Flow Rate 12/12/23 19:16 3 12/12/23 19:16 3 12/12/23 15:07 3 12/12/23 14:00 12/12/23 11:32 3 Laboratory Results Laboratory Results - last 24 hr 12/11/23 12/12/23 12/12/23 20:09 02:29 07:03 WBC 12.40 H RBC 4.60 L Hgb 15.2 Hct 44.9 MCV 97.6 MCH 33.0 MCHC 33.9 RDW Std Deviation 51.3 H RDW Coeff of Martin 14.2 Plt Count 179 MPV 11.2 Heparin Anti-Xa, Unfract 0.28 L Sodium 138 Potassium 4.2 Chloride 99 Carbon Dioxide 29 Anion Gap 10 BUN 56 H Creatinine 2.00 H Est Cr Clr Drug Dosing 36.1 Est GFR ( Amer) 38.1 Est GFR (Non-Af Amer) 32.8 BUN/Creatinine Ratio 28.0 H Glucose 106 H POC Glucose 145 H 105 H Calcium 9.4 12/12/23 12/12/23 12/12/23 11:04 11:18 16:25 WBC RBC Hgb Hct MCV MCH MCHC RDW Std Deviation RDW Coeff of Martin Plt Count MPV Heparin Anti-Xa, Unfract 0.24 L Sodium Potassium Chloride Carbon Dioxide Anion Gap BUN Creatinine Est Cr Clr Drug Dosing Est GFR ( Amer) Est GFR (Non-Af Amer) BUN/Creatinine Ratio Glucose POC Glucose 115 H 113 H Calcium 12/12/23 17:07 WBC RBC Hgb Hct MCV MCH MCHC RDW Std Deviation RDW Coeff of Martin Plt Count MPV Heparin Anti-Xa, Unfract 0.26 L Sodium Potassium Chloride Carbon Dioxide Anion Gap BUN Creatinine Est Cr Clr Drug Dosing Est GFR ( Amer) Est GFR (Non-Af Amer) BUN/Creatinine Ratio Glucose POC Glucose Calcium PG Care Time/CCT Total # of Minutes Spent Total Time Spent with Patient: Total time spent is greater than 50% in coordination of care (as documented) at patient's floor/unit and/or counseling patient: Coding Level of Care Code 39938 SUB INP/OBS CARE 3/50MIN Diagnoses Acute hypoxic respiratory failure J96.01 Acute on chronic systolic heart failure I50.23 NSTEMI (non-ST elevated myocardial infarction) I21.4 CAD in [place] artery I25.10 Pneumonia J18.9 NANCY (acute kidney injury) N17.9 Pulmonary emphysema, unspecified emphysema type J43.9 Emphysema type: unspecified Carotid artery disease I77.9 Type 2 diabetes mellitus with diabetic neuropathy, with long-term current use of insulin E11.40; Z79.4 Diabetes mellitus complication detail: with unspecified neuropathy Diabetes mellitus complication status: with neurologic complications Diabetes mellitus care home insulin use: with watermaster use Dyslipidemia E78.5 GERD (gastroesophageal reflux disease) K21.9 Peripheral vascular disease I73.9 Tobacco dependence F17.200 History of CVA (cerebrovascular accident) Z86.73 Hx of AKA (above knee amputation) Z89.619 DVT prophylaxis Z29.9 (7) Emphysema of lung Emphysema type: unspecified Qualified Code(s): J43.9 - Emphysema, unspecified (9) DM type 2 (diabetes mellitus, type 2) Diabetes mellitus complication detail: with unspecified neuropathy Diabetes mellitus complication status: with neurologic complications Diabetes mellitus watermaster insulin use: with care home use Qualified Code(s): E11.40 - Type 2 diabetes mellitus with diabetic neuropathy, unspecified; Z79.4 - 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
[2023-12-12] MEDS: METOPROLOL SUCC 25MG EXT REL TAB PO SCH (20:26)
[2023-12-12] MEDS ORDERED: HEPARIN SODIUM/DEXTROSE 25,000 UNITS/500 ML BAG IV SCH (21:00)
[2023-12-12] MEDS: Heparin IV Adult Wt-Based Low-Dose *NO* INITIAL Bolus Protocol IV STA (23:40)
[2023-12-13 01:23] LABS: ANTI-Xa, UFH(UnfractionatedHep 0.29 IU/ml (0.3-0.7)
[2023-12-13 07:29] LABS: Estimated Average Glucose 157 mg/dl; Hemoglobin A1C 7.1 % (4.5-5.6)
[2023-12-13 07:54] LABS: Chol HDL Ratio 3.1 (0-5); Creatinine Clr Calc Pharmacy 41.9 ml/min; Est GFR (African American) 46.3 ml/min; Potassium 3.5 mmol/L (3.5-5.1)
[2023-12-13] MEDS: NICOTINE 7 MG/24 HR TDSY TD SCH (08:21)
[2023-12-13] MEDS: PANTOprazole 40 MG TAB PO SCH (09:26)
[2023-12-13] MEDS: HEPARIN SOD 5,000 UNIT/0.5 ML VIAL SQ SCH (09:26)
[2023-12-13] MEDS: POTASSIUM CHLORIDE CRTAB 20 MEQ TABCR PO STA (09:27)
--- NOTE | 2023-12-13 10:18 | Cardiology Progress Note ---
Date of Service December 13, 2023 Assessment & Plan (1) Ischemic cardiomyopathy: (2) HFrEF (heart failure with reduced ejection fraction): (3) NSTEMI (non-ST elevated myocardial infarction): (4) CAD in [place] artery: (5) Frequent PVCs: (6) NANCY (acute kidney injury): Plan 68-year-old man with severe ischemic cardiomyopathy (EF 15-20%) and inoperable coronary artery disease who had a recent non-STEMI but who is now hemodynamically and electrically stable. His acute kidney injury appears to be resolving (creatinine improving). He appears euvolemic, could taper furosemide to once daily and change to oral dosing (40 mg daily). Continue aspirin, clopidogrel, metoprolol, nitroglycerin, Jardiance, and statin for CAD. Consider POONAM inhibitor, ARB, or Entresto once his renal function further improves/stabilizes. Admission and Anticipated Discharge Date Admission Date: December 10, 2023 Subjective Uneventful night. He feels well. Denies chest pain, dyspnea, or any other complaints. Telemetry showed sinus rhythm with PVCs, rate 70-80 bpm. No dysrhythmias. Physical Exam Physical Exam: No distress. BP normotensive. Pulse 68 bpm and regular with ectopy. Skin: no ecchymoses or generalized lesions. HEENT: unremarkable. Neck: JVP at the clavicle at 90 degrees, no carotid bruits. Lungs: clear bilaterally. Cardiac: regular rhythm, normal S1-2, no murmur. Abdomen: benign. Extremities: Bilateral AKA. Neurologic: normal affect and conversation, nonfocal. Results & Data Vital Signs (Past 12 Hours) Vital Signs Temp Pulse Resp BP Pulse Ox O2 Del Method O2 Flow Rate 12/13/23 07:11 98.6 F 67 20 120/64 96 Nasal Cannula 3.0 12/13/23 02:38 98.4 F 82 20 104/66 98 Nasal Cannula 3 12/12/23 22:51 Nasal Cannula 3 12/12/23 22:47 99.3 F 83 18 105/60 97 Nasal Cannula Laboratory Results Normal electrolytes, BUN 51, creatinine 1.7 (BUN 56, creatinine 2.0 yesterday) PG Care Time/CCT Total # of Minutes Spent Total Time Spent with Patient: Total time spent is greater than 50% in coordination of care (as documented) at patient's floor/unit and/or counseling patient: Coding Level of Care Code 03354 SUB INP/OBS CARE 350MIN Diagnoses Ischemic cardiomyopathy I25.5 HFrEF (heart failure with reduced ejection fraction) I50.20 NSTEMI (non-ST elevated myocardial infarction) I21.4 CAD in [place] artery I25.10 Frequent PVCs I49.3 NANCY (acute kidney injury) N17.9
--- NOTE | 2023-12-13 15:47 | Hospitalist Progress Note ---
Date of Service December 13, 2023 Assessment & Plan (1) Acute hypoxic respiratory failure: Plan: 2nd to acute/chronic systolic CHF with resulting pulmonary edema. I cannot rule out a concomitant pneumonia process. treated with BiPAP early in admission hypoxia much improved. acute/chronic CHF -> diurese. concern for pneumonia -> cont rocephin/doxycycline. a.m. CBC (2) Acute on chronic systolic heart failure: Plan: Previous EF, per records, was 35% in 2019. Now 15-20% on echo this admission. 2nd ischemic cardiomyopathy. Pt and his fiance confirm he had not seen cardiology "in years" prior to this admission. s/p lasix IV since admission with good UOP response. Cont IV lasix 40mg daily today then changed to p.o. tomorrow morning creatinine improved to 1.7 will recheck in morning Cont metoprolol 25mg BID. At this time, due to NANCY, POONAM/ARB/Entresto cannot be employed. Appreciate cardiology assistance. Of note - in 2019 his advanced CAD was deemed inoperable and not amenable to stenting either. His records were reviewed by CT surgery at [facility] on the night of this admission and again our medical team was told he was not a candidate for any intervention; medical management advised. (3) NSTEMI (non-ST elevated myocardial infarction): Plan: Clinical history, EKG, labs, etc are c/w NSTEMI. Peak HS troponin 9600. Most recent troponin is now <9000. Medical management only; no plans for cath. treated with low-dose heparin infusion x 48+ hours Cont asa. Cont plavix. Cont metoprolol succinate 25mg BID. Resumed statin. LDL 82, consider increased dose of rosuvastatin Appreciate recs from [facility] [place] Cardiology. SL nitro prn. no chest pain last 24 hours (4) CAD in [place] artery: Plan: By report: [facility] [place] 2019 cath -- Heavily calcified 90% LMCA extending to the trifurcation of LAD, ramus, and dominant circumflex. 99% subtotal occlusion of mid LCx after giving off a large OM1, 80% stenosis of proximal ramus, 80% stenosis of proximal LAD, 80% stenosis of mid nondominant RCA. His severe, multivessel disease was felt NOT amenable to PCI or bypass and was recommended for medical management at that time. Now with NSTEMI - see above. His CAD and CHF are advanced - will make outpatient palliative care referral - he is amenable to this (5) Pneumonia: Plan: b/l basilar suspected poor appetite, leukocytosis at admission, ongoing cough, vomiting at home d3 rocephin & doxycycline - AM CBC (6) NANCY (acute kidney injury): Plan: creatinine was 1.1 in January 2023, then 1.4 in June 2023, then 1.7 at presentation this admission and peaked at 2. cardiorenal physiology Cr improved to 1.7 on 12/12 (7) Emphysema of lung: Plan: Wheezing resolved Suspect it was "cardiac wheezing" from his pulmonary edema. (8) Carotid artery disease: Plan: Cont asa, plavix, statin. (9) DM type 2 (diabetes mellitus, type 2): Plan: A1c 7.6% BG at goal 12/12 Cont basal-bolus insulin; adjust as needed. (10) Peripheral vascular disease: Plan: SEVERE * carotid disease * extensive PAD of legs s/p numerous interventions with ultimate b/l AKA (11) Tobacco dependence: Plan: ongoing tobacco dependence pre-admission nicoderm patch 7mg program counselor cessation (12) History of CVA (cerebrovascular accident): Plan: basal ganglia stroke by history cont asa/plavix/statin for secondary prevention Plan updated pt's son, "JR" extensively by phone 12/10; phone - [phone] updated pt's sister, clinton, [id number] at bedside 12/11 DVT ppx - SQ heparin code status - remains full, but patient leaning towards DNR/DNI Admission and Anticipated Discharge Date Admission Date: December 10, 2023 Subjective feeling pretty good today not short of breath and no chest pain, remains on oxygen however sats in high 90s on 3 L so improving Physical Exam 2 Physical Exam: PHYSICAL EXAMINATION Last 24h vital signs reviewed, see documentation in flowsheet General: comfortable appearing, no distress HEENT: Normocephalic, atraumatic, pupils round and equal, sclerae anicteric, no conjunctival injection, moist mucus membranes Lungs: Normal respiratory effort. Clear to auscultation bilaterally. No RRW Heart: Regular rate and rhythm, no murmurs. No JVD Abdomen: Soft, nontender, nondistended. Bowel sounds present. Extremities: Warm, dry, well-perfused. status post bilateral AKA. No site or stump edema. Neuro: Alert and oriented x 4, face symmetric, moves 4 extremities well Psych: Normal affect and behavior Results & Data Results & Data Vital Signs (Past 12 Hours) Vital Signs Temp Pulse Pulse Resp BP Pulse Ox O2 Del Method 12/13/23 15:30 36.9 C 82 18 93/59 L 99 Nasal Cannula 12/13/23 12:04 36.8 C 80 19 110/68 96 Nasal Cannula 12/13/23 08:00 75 12/13/23 08:00 Room Air 12/13/23 07:11 37.0 C 67 20 120/64 96 Nasal Cannula O2 Flow Rate 12/13/23 15:30 3 12/13/23 12:04 3.0 12/13/23 08:00 12/13/23 08:00 12/13/23 07:11 3.0 Laboratory Results 12/12/23 02:29 12/13/23 06:44 PG Care Time/CCT Total # of Minutes Spent Total Time Spent with Patient: Total time spent is greater than 50% in coordination of care (as documented) at patient's floor/unit and/or counseling patient: Coding Level of Care Code 49495 SUB INP/OBS CARE 2/35MIN Diagnoses Acute hypoxic respiratory failure J96.01 Acute on chronic systolic heart failure I50.23 NSTEMI (non-ST elevated myocardial infarction) I21.4 CAD in [place] artery I25.10 Pneumonia J18.9 NANCY (acute kidney injury) N17.9 Pulmonary emphysema, unspecified emphysema type J43.9 Emphysema type: unspecified Carotid artery disease I77.9 Type 2 diabetes mellitus with diabetic neuropathy, with long-term current use of insulin E11.40; Z79.4 Diabetes mellitus long-term insulin use: with long-term use Diabetes mellitus complication status: with neurologic complications Diabetes mellitus complication detail: with unspecified neuropathy Peripheral vascular disease I73.9 Tobacco dependence F17.200 History of CVA (cerebrovascular accident) Z86.73 (7) Emphysema of lung Emphysema type: unspecified Qualified Code(s): J43.9 - Emphysema, unspecified (9) DM type 2 (diabetes mellitus, type 2) 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
[2023-12-14 06:56] LABS: Calcium 9.2 mg/dl (8.6-10.3); Potassium 4.1 mmol/L (3.5-5.1)
[2023-12-14 07:02] LABS: BUN Creatinine Ratio 33.3 (10-20); Creatinine Clr Calc Pharmacy 48.3 ml/min; Est GFR (African American) 55.2 ml/min; Est GFR (Non-African American) 47.7 ml/min
[2023-12-14 07:07] LABS: Hematocrit (blood only) 46.5 % (42.0-52.0); Hemoglobin 15.7 g/dl (14.0-18.0); Mean Corpuscular Hemoglobin 33.4 pg (25.0-34.0); Mean Corpuscular Hgb Conc 33.8 g/dL (32.0-36.0); Mean Corpuscular Volume 98.9 fL (80.0-100.0); Mean Platelet Volume 11.3 fL (9.4-12.4); Platelet Count 172 K/uL (130-400); RDW Coefficient of Variation 13.8 % (11.5-14.5); White Blood Count 8.22 K/ul (4.8-10.8)
[2023-12-14] MEDS: FUROSEMIDE 40 MG TAB PO SCH (09:05)
--- NOTE | 2023-12-14 17:17 | Hospitalist Progress Note ---
Date of Service December 14, 2023 Assessment & Plan (1) Acute hypoxic respiratory failure: Plan: 2nd to acute/chronic systolic CHF with resulting pulmonary edema. cannot rule out a concomitant pneumonia process or aspiration pneumonitis. Had leukocytosis which has resolved to normal as of 12/13 labs. Never had fever. No procal checked treated with BiPAP early in admission hypoxia much improved. acute/chronic CHF -> diuresed to euvolemic and continues to be hypoxic on 3L O2. Desatted to 81% when I tried him on room air. concern for pneumonia -> cont rocephin/doxycycline change to po antibiotics evaluating for home O2 (2) Acute on chronic systolic heart failure: Plan: Previous EF, per records, was 35% in 2020. Now 15-20% on echo this admission. 2nd ischemic cardiomyopathy. Pt and his fiance confirm he had not seen cardiology "in years" prior to this admission. 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 po lasix started 12/13 - monitor response creatinine improved to 1.5 Cont metoprolol 25mg BID. At this time, due to NANCY, POONAM/ARB/Entresto cannot be employed. Follow up with cardiology as outpatient, heart failure clinic referral (3) NSTEMI (non-ST elevated myocardial infarction): Plan: Clinical history, EKG, labs, etc are c/w NSTEMI. Peak HS troponin 9600. Most recent troponin is now <9000. Medical management only; no plans for cath. treated with low-dose heparin infusion x 48+ hours Cont asa. Cont plavix. Cont metoprolol succinate 25mg BID. Resumed statin. LDL 82, consider increased dose of rosuvastatin Appreciate recs from [facility] [place] Cardiology. SL nitro prn. no chest pain last 48 hours (4) CAD in [place] artery: Plan: By report: [place] 2019 cath -- Heavily calcified 90% LMCA extending to the trifurcation of LAD, ramus, and dominant circumflex. 99% subtotal occlusion of mid LCx after giving off a large OM1, 80% stenosis of proximal ramus, 80% stenosis of proximal LAD, 80% stenosis of mid nondominant RCA. His severe, multivessel disease was felt NOT amenable to PCI or bypass and was recommended for medical management at that time. Now with NSTEMI - see above. His CAD and CHF are advanced - made outpatient palliative care referral - he is amenable to this (5) Pneumonia: Plan: b/l basilar suspected poor appetite, leukocytosis at admission, ongoing cough, vomiting at home d4 rocephin & doxycycline - WBC 8 (6) NANCY (acute kidney injury): Plan: creatinine was 1.1 in January 2023, then 1.4 in June 2023, then 1.7 at presentation this admission and peaked at 2. cardiorenal physiology Cr improved to 1.5 on 12/12 (7) Emphysema of lung: Plan: Wheezing resolved Suspect it was "cardiac wheezing" from his pulmonary edema. (8) Carotid artery disease: Plan: Cont asa, plavix, statin. (9) DM type 2 (diabetes mellitus, type 2): Plan: A1c 7.6% BG at goal 12/13 Cont basal-bolus insulin; adjust as needed. (10) Peripheral vascular disease: Plan: SEVERE * carotid disease * extensive PAD of legs s/p numerous interventions with ultimate b/l AKA (11) Tobacco dependence: Plan: ongoing tobacco dependence pre-admission nicoderm patch 7mg area counselor cessation (12) History of CVA (cerebrovascular accident): Plan: basal ganglia stroke by history cont asa/plavix/statin for secondary prevention Plan updated pt's son, "JR" extensively by phone 12/10; phone - [phone] updated pt's sister, clinton, [id number] at bedside 12/11 DVT ppx - SQ heparin code status - remains full, but patient leaning towards DNR/DNI Admission and Anticipated Discharge Date Admission Date: December 10, 2023 Subjective feels very well. No cough/dyspnea, no chest pain remains on 3L O2 Physical Exam 2 Physical Exam: PHYSICAL EXAMINATION Last 24h vital signs reviewed, see documentation in flowsheet no change in exam 12/13 General: comfortable appearing, no distress HEENT: Normocephalic, atraumatic, pupils round and equal, sclerae anicteric, no conjunctival injection, moist mucus membranes Lungs: Normal respiratory effort. Clear to auscultation bilaterally. No RRW Heart: Regular rate and rhythm, no murmurs. No JVD Abdomen: Soft, nontender, nondistended. Bowel sounds present. Extremities: Warm, dry, well-perfused. status post bilateral AKA. No site or stump edema. Neuro: Alert and oriented x 4, face symmetric, moves 4 extremities well Psych: Normal affect and behavior Results & Data Results & Data Vital Signs (Past 12 Hours) Vital Signs Temp Pulse Pulse Resp BP Pulse Ox O2 Del Method 12/14/23 15:36 37.1 C 61 20 117/70 98 Nasal Cannula 12/14/23 15:31 78 12/14/23 11:26 36.4 C L 78 19 102/64 96 Nasal Cannula 12/14/23 11:20 74 12/14/23 08:00 Nasal Cannula 12/14/23 07:12 36.5 C 64 19 116/68 93 Nasal Cannula O2 Flow Rate 12/14/23 15:36 3 12/14/23 15:31 12/14/23 11:26 3 12/14/23 11:20 12/14/23 08:00 3 12/14/23 07:12 3 Laboratory Results 12/14/23 06:06 12/14/23 06:06 PG Care Time/CCT Total # of Minutes Spent Total Time Spent with Patient: Total time spent is greater than 50% in coordination of care (as documented) at patient's floor/unit and/or counseling patient: Coding Level of Care Code 76952 SUB INP/OBS CARE 2/35MIN Diagnoses Acute hypoxic respiratory failure J96.01 Acute on chronic systolic heart failure I50.23 NSTEMI (non-ST elevated myocardial infarction) I21.4 CAD in [place] artery I25.10 Pneumonia J18.9 NANCY (acute kidney injury) N17.9 Pulmonary emphysema, unspecified emphysema type J43.9 Emphysema type: unspecified Carotid artery disease I77.9 Type 2 diabetes mellitus with diabetic neuropathy, with long-term current use of insulin E11.40; Z79.4 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 mellitus 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 matcher insulin use: with ripsaw matcher use Diabetes mellitus complication status: with neurologic complications Diabetes mellitus complication detail: with unspecified neuropathy Peripheral vascular disease I73.9 Tobacco dependence F17.200 History of CVA (cerebrovascular accident) Z86.73 (7) Emphysema of lung Emphysema type: unspecified Qualified Code(s): J43.9 - Emphysema, unspecified (9) DM type 2 (diabetes mellitus, type 2) Diabetes mellitus correction insulin use: with correction use Diabetes mellitus complication status: with neurologic complications Diabetes mellitus complication detail: with unspecified neuropathy Qualified Code(s): E11.40 - Type 2 diabetes mellitus with diabetic neuropathy, unspecified; Z79.4 - flavor extractor (current) use of insulin
[2023-12-15 07:51] LABS: Hematocrit (blood only) 45.8 % (42.0-52.0); Hemoglobin 15.6 g/dl (14.0-18.0); Mean Corpuscular Hemoglobin 33.2 pg (25.0-34.0); Mean Corpuscular Hgb Conc 34.1 g/dL (32.0-36.0); Mean Corpuscular Volume 97.4 fL (80.0-100.0); Mean Platelet Volume 11.2 fL (9.4-12.4); Platelet Count 210 K/uL (130-400); RDW Coefficient of Variation 13.7 % (11.5-14.5); RDW Standard Deviation 49.6 fL (36.4-46.3); White Blood Count 8.65 K/ul (4.8-10.8)
[2023-12-15 08:20] LABS: BUN Creatinine Ratio 29.1 (10-20); Calcium 9.2 mg/dl (8.6-10.3); Creatinine Clr Calc Pharmacy 42.6 ml/min; Est GFR (African American) 50.6 ml/min; Est GFR (Non-African American) 43.7 ml/min
[2023-12-15] MEDS: DOXYCYCLINE HYCLATE 100 MG CAP PO SCH (08:40)
[2023-12-15] MEDS: cefUROXime axetil 500 MG TAB PO SCH (08:40)
--- NOTE | 2023-12-15 09:34 | Discharge Summary ---
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 Pt reports that he felt normal this morning when he had sudden onset of shortness of breath, chest pain, difficulty breathing which came on at about 1 PM. Lasted 2 around 3 PM. He reports the pain was constant until he was placed on BiPAP, following for aspirin, BiPAP, Lasix, and albuterol he feels his chest pain completely resolved. He did not receive nitro in the ER. BP 117/71 on reassessment. He reports that prior to today he had felt normal. 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 He has an intermittent dry cough this has not changed. Denies sputum production. Principal Diagnosis Acute hypoxic respiratory failure secondary to acute on chronic systolic heart failure Discharge Exam PHYSICAL EXAMINATION Last 24h vital signs reviewed, see documentation in flowsheet no change in exam 12/14 General: comfortable appearing, no distress HEENT: Normocephalic, atraumatic, pupils round and equal, sclerae anicteric, no conjunctival injection, moist mucus membranes Lungs: Normal respiratory effort. Clear to auscultation bilaterally. No RRW Heart: Regular rate and rhythm, no murmurs. No JVD Abdomen: Soft, nontender, nondistended. Bowel sounds present. Extremities: Warm, dry, well-perfused. status post bilateral AKA. No stump edema. Neuro: Alert and oriented x 4, face symmetric, moves 4 extremities well Psych: Normal affect and behavior Discharge Data Allergies Allergy/AdvReac Type Severity Reaction Status Date / Time No Known Allergies Allergy Verified 06/21/23 15:11 Consultations 12/10/23 14:02 ED Decision to Admit Stat 12/10/23 20:35 Consult Cardiology Routine Ordered Studies Chest X-Ray 12/10/23 12:52 XR chest 1V portable HISTORY: Chest pain, nonspecific COMPARISON: Chest 02/10/2022. FINDINGS: No pneumothorax. The cardiac silhouette remains mildly enlarged. There are calcifications within the aortic knob. No definite pleural effusions. There is right greater than left interstitial/vascular thickening consistent with mild asymmetric pulmonary edema. This has progressed in the interval. Lumbar spinal fusion hardware is partially visualized. IMPRESSION: Interval development of mild asymmetric interstitial pulmonary edema. ACT 112: Negative or not required by law. Electronically signed by: Ladarius Whitney M.D. 12/10/2023 1:06 PM Chest X-Ray 12/11/23 06:38 XR chest 1V portable CLINICAL HISTORY: NSTEMI/Pulm edema TECHNIQUE: Single frontal radiograph of the chest was obtained. Comparison: Comparison is made to chest radiograph 12/10/2023 FINDINGS: No lines and tubes are seen. Aortic valvular prosthesis is seen. There is prominence and cephalization of the vasculature with Reyna B lines seen. Airspace opacities are in the bilateral lower lobes. No evidence of pleural effusion or pneumothorax. IMPRESSION: Cardiomegaly and moderate pulmonary edema. Airspace opacities in the bilateral lower lobes, slightly increased in conspicuity from prior exam. This may represent aspiration, pneumonia, and/or alveolar edema. ACT 112: Negative or not required by law. Electronically signed by: Eduardo Scott M.D. 12/11/2023 9:08 AM Hospital Course (1) Acute hypoxic respiratory failure: 68 y/o with severe inoperable multivessel CAD and systolic dysfunction admitted with acute hypoxic respiratory failure and NSTEMI with chest pain. Early hospital course he was severely ill with need for noninvasive ventilation, IV diuresis, and NSTEMI with active chest pain managed medically with heparin drip. He had substantial improvement with below treatments and was asymptomatic and on room air at discharge. His prognosis is poor from the perspective of his CAD and heart failure. He had not been seeing a robotic maintenance technician any time recently. He was referred to the CHF clinic, cardiology and palliative care for follow up. Acute hypoxic respiratory failure- Primarily 2nd to acute/chronic systolic CHF with resulting pulmonary edema. cannot rule out a concomitant pneumonia process or aspiration pneumonitis. Had leukocytosis which has resolved to normal as of 12/13 labs. Never had fever. No procal checked treated with BiPAP early in admission hypoxia much improved. acute/chronic CHF -> diuresed to euvolemic and tolerated transition to oral lasix concern for pneumonia -> treated with rocephin/doxycycline changed to complete po antibiotics (2) Acute on chronic systolic heart failure: Previous EF, per records, was 35% in 2019. Now 15-20% on echo this admission. 2nd ischemic cardiomyopathy. Pt and his fiance confirm he had not seen cardiology "in years" prior to this admission. Dado Operator consulted this admission diuresed with IV lasix. po lasix started 12/13 and maintained euvolemia creatinine improved to 1.5 Cont metoprolol 25mg BID, empagliflozin. due to NANCY, POONAM/ARB/Entresto not started as inpatient but can be initiated on follow up Follow up with cardiology as outpatient, heart failure clinic referral (3) NSTEMI (non-ST elevated myocardial infarction): Clinical history, EKG, labs, etc are c/w NSTEMI. Peak HS troponin 9600. Most recent troponin is now <9000. Medical management only; no plans for cath. treated with low-dose heparin infusion x 48+ hours Cont asa. Cont plavix. Cont metoprolol succinate 25mg BID. Resumed statin. LDL 82, consider increased dose of rosuvastatin Appreciate recs from [facility]. SL nitro prn. no chest pain last 72 hours (4) CAD in [place] artery: By report: [facility] 2019 cath -- Heavily calcified 90% LMCA extending to the trifurcation of LAD, ramus, and dominant circumflex. 99% subtotal occlusion of mid LCx after giving off a large OM1, 80% stenosis of proximal ramus, 80% stenosis of proximal LAD, 80% stenosis of mid nondominant RCA. His severe, multivessel disease was felt NOT amenable to PCI or bypass and was recommended for medical management at that time. Now with NSTEMI - see above. His CAD and CHF are advanced - made outpatient palliative care referral - he is amenable to this (5) Pneumonia: b/l basilar suspected poor appetite, leukocytosis at admission, ongoing cough, vomiting at home treated with antibiotics see above (6) NANCY (acute kidney injury): creatinine was 1.1 in January 2023, then 1.4 in June 2023, then 1.7 at presentation this admission and peaked at 2. cardiorenal physiology Cr improved to 1.5 on 12/12 (7) Emphysema of lung: Wheezing resolved Suspect it was "cardiac wheezing" from his pulmonary edema. (8) Carotid artery disease: Cont asa, plavix, statin. (9) DM type 2 (diabetes mellitus, type 2): A1c 7.6% resumed dulaglutide, empagliflozin (10) Peripheral vascular disease: SEVERE * carotid disease * extensive PAD of legs s/p numerous interventions with ultimate b/l AKA (11) Tobacco dependence: ongoing tobacco dependence pre-admission nicoderm patch 7mg counseled cessation 12/14 - he will try nicotine replacement, follow up with PCP (12) History of CVA (cerebrovascular accident): basal ganglia stroke by history cont asa/plavix/statin for secondary prevention Plan code status - remains full, but patient leaning towards DNR/DNI Total Time Total Time Spent Total Time Spent (In Minutes): I personally spent: 35 minutes today on clinical care activities including: reviewing chart notes and vital signs reviewing labs discussion with client care specialist, arranging follow up examining and counseling the patient writing orders, discharge instructions, prescriptions documentation Discharge Plan Discharge Items Patient Disposition: Home - Self-Care Reason For Visit: ACUTE HYPOXIC RESP FAILURE, DECOMPENSATED HF Discharge Diagnosis: Acute hypoxic respiratory failure due primarily acute on chronic systolic heart failure, possible pneumonia, NANCY Activity: Resume your previous activity Non-emergency contact: Primary Care Provider and Dado Operator Call non-emergency contact if: you have any medication questions, your symptoms worsen and you have a fever Follow-up/Referrals: Naty Ordaz CRNP [Primary Care Provider] - 12/26/23 3:00 pm (Hospital follow up scheduled December 25 at 3:00 with America Mejía) Grace Quezada DNP [Nurse Practitioner] - 12/29/23 9:00 am (Appointment scheduled 12/29/23 @ 9am) Diet: Heart Healthy and Low Sodium (2gm) Fluids: 1500ml (6 cups) Addtl Attending Provider Instructions: You were treated for breathing difficulty related to heart failure, possibly pneumonia. Unfortunately you have severe coronary artery disease that is inoperable and your heart squeeze is weak. You were treated with diuretics for heart failure / fluid overload -continue your medications - we increased the dose of metoprolol and furosemide (lasix) -hold your lisinopril until you follow up with cardiology or primary care (because of kidney injury) - this may be restarted in the future or be replaced by a similar medicine -follow a low salt diet and a fluid restriction -follow up in heart failure clinic and with your robotic maintenance technician -I strongly advise you quit smoking - this is the most powerful thing you can do to prevent further worsening of your coronary and vascular disease Complete the course of antibiotics We made a referral to Dr. Quezada with palliative care to help you with thinking about your goals of care in the future and with symptom managemet It was a pleasure taking care of you in the hospital Addtl [employer] Provider Instructions: Call your Primary Care doctor if any of the following symptoms or problems start or get worse: * Shortness of breath or difficulty breathing * Wake up at night short of breath * Chest pain * Cough * Swelling of your hands, feet, or legs * More fatigued or tired with your normal activity * Palpitations - sudden fast heart beats WEIGHT * Weigh yourself every morning after using the bathroom. * Use the same scale. * Wear the same amount of clothing. * Write your weight down on a chart. * Call your Primary Care doctor if you gain more than 2-3 pounds in 1-2 days. MEDICATIONS * Use this discharge instruction sheet for medication instructions. * Take your medications at the time your doctor ordered. * Do not skip a dose of your medicines. * If you miss a dose of medicine, take it as soon as possible, but DO NOT DOUBLE A DOSE. * Read your medicine information when you get home. * Know all of the side effects of your medicine. If in doubt, ask your pharmacist * Call your Primary Care doctor's office if you have any side effects. * Be sure all of your doctors know what medicine and herbs you take (including cold, flu, and herbal medicine). Take the following with you to your follow-up doctor appointments: * Weight Chart * Medication List * List of questions Do not drink excessive alcohol, beer or wine. Pending Studies at Discharge: No Stand-Alone Forms: [employer], Smoking Cessation Medications and DC Order Prescriptions: New cefuroxime axetil 500 mg Tablet 500 mg PO BID Qty: 6 0RF metoprolol succinate 25 mg Tablet Extended Release 24 Hr 25 mg PO BID Qty: 60 0RF nitroglycerin [Nitrostat] 0.6 mg Tablet, Sublingual 0.6 mg sublingual Q5M MDD 3 PRN (Reason: chest pain) Qty: 20 0RF furosemide 40 mg Tablet 40 mg PO QAM Qty: 30 0RF doxycycline hyclate 100 mg Capsule 100 mg PO BID Qty: 6 0RF Continued aspirin 81 mg tablet,delayed release (DR/EC) 81 mg PO QAM Rx Instructions: otc unable to verify clopidogrel [Plavix] 75 mg tablet 75 mg PO QAM Rx Instructions: last filled 08/30/23 for 90 day supply Trulicity 4.5 mg/0.5 mL pen injector 4.5 mg subcut WK famotidine 20 mg Tablet 20 mg PO QAM ascorbic acid (vitamin C) 500 mg Tablet 500 mg PO QPM Rx Instructions: otc unable to verify cholecalciferol (vitamin D3) [Vitamin D3] 50 mcg (2,000 unit) Capsule 2,000 unit PO QAM Rx Instructions: otc unable to verify Jardiance 25 mg tablet 25 mg PO QAM melatonin 10 mg Tablet 10 mg PO HS Rx Instructions: otc unable to verify pantoprazole [Protonix] 40 mg tablet,delayed release (DR/EC) 40 mg PO DAILY Qty: 30 0RF Rx Instructions: gabapentin 300 mg capsule 300 mg PO QID rosuvastatin 40 mg tablet 40 mg PO UD Rx Instructions: last filled jun 2023 40 mg po daily Held lisinopril 2.5 mg tablet 2.5 mg PO QAM Hold Instructions: Resume on 01/12/24. hold until resumed by robotic maintenance technician or primary care Discontinued furosemide 20 mg tablet 20 mg PO UD Rx Instructions: last filled 11/23/22 20 mg po daily metoprolol succinate 25 mg tablet extended release 24 hr 12.5 mg PO BID Rx Instructions: last filled August for 90 day supply Discharge Orders: Discharge Order- CHF (Routine); Ordered 12/15/23 Ordered By: Michelle Escalante/Other Patient Handouts: Managing Type 2 Diabetes Admission Data Admit Date/Time: 05/25/24 14:44 Attending Provider: Michelle Heath Admit Provider: Andrea Good Primary Care Provider: Naty Ordaz Other Providers: Bhavna Briones; Justice Ash Other Interventions: Discharge Summary Assessment (RN) Last Done: 12/15/23 10:28 Coding Level of Care Code 53122 INP/OBS DISCH >30 MIN Diagnoses Acute hypoxic respiratory failure J96.01 Acute on chronic systolic heart failure I50.23 NSTEMI (non-ST elevated myocardial infarction) I21.4 CAD in [place] artery I25.10 Pneumonia J18.9 NANCY (acute kidney injury) N17.9 Pulmonary emphysema, unspecified emphysema type J43.9 Emphysema type: unspecified Carotid artery disease I77.9 Type 2 diabetes mellitus with diabetic neuropathy, with long-term current use of insulin E11.40; Z79.4 Diabetes mellitus complication detail: with unspecified neuropathy Diabetes mellitus complication status: with neurologic complications 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
== END 2023-12-15 12:37 | disposition home or self-care (01) | DRG 280 ==
LOC: ED 12:54 → 2S 14:44 → SUATTDRO 14:44 → 2S 16:44

== ENCOUNTER 2023-12-21 16:22 | Inpatient (IN) ==
--- NOTE | 2023-12-21 16:34 | ED Triage Note ---
Date of Service December 21, 2023 Provider in Triage Author: Michelle Saab History of Present Illness This patient was briefly evaluated while in triage. An abbreviated physical exam was performed. This patient is a 68-year-old Male who presents to the ED for evaluation of trouble breathing that started last night, getting worse. Discharged from hospital last after heart attack. Has been having some chest pain off and on, denies any now. Also has a mild cough. No fevers or chills. Physical Exam CONSTITUTIONAL: No acute distress. Well appearing. RESPIRATORY: Diminished, bilateral rales to auscultation. No tachypnea. Equal expansion bilaterally. CARDIOVASCULAR: Regular rate and rhythm. No edema noted. GASTROINTESTINAL: Soft MUSCULOSKELETAL: Bilateral above knee amputations. NEUROLOGIC: Alert and oriented X 4 with normal affect. Initial orders for labs and / or imaging were placed and patient was placed in the waiting area until a bed is available. Please see further documentation for the full ED course.
[2023-12-21 18:04] LABS: Basophils # (auto) 0.06 K/uL (0.00-0.20); Basophils % (auto) 0.6 %; Eosinophils # (auto) 0.18 K/uL (0.00-0.50); Eosinophils % (auto) 1.9 %; Hematocrit (blood only) 39.4 % (42.0-52.0); Immature Granulocytes # (auto) 0.05 K/uL (0.01-0.20); Immature Granulocytes % (auto) 0.5 %; Lymphocytes # (auto) 1.97 K/uL (1.20-3.40); Lymphocytes % (auto) 20.3 %; Mean Corpuscular Hemoglobin 32.7 pg (25.0-34.0); Mean Platelet Volume 10.7 fL (9.4-12.4); Monocytes % (auto) 7.2 %; Neutrophils # (auto) 6.76 K/uL (1.40-6.50); Neutrophils % (auto) 69.5 %; Platelet Count 227 K/uL (130-400); RDW Standard Deviation 51.1 fL (36.4-46.3); Red Blood Count 3.98 M/uL (4.70-6.10); White Blood Count 9.72 K/ul (4.8-10.8)
--- NOTE | 2023-12-21 18:04 | XRay Report ---
XR chest 1V portable HISTORY: 68 years-old Male Dyspnea acute shortness of breath COMPARISON: 12/11/2023 TECHNIQUE: AP view of the chest FINDINGS: Cardiomegaly. Mixed interstitial and alveolar opacities are similar to prior, right greater than left . Small pleural effusions with bibasilar predominant consolidation. No pneumothorax. Bones appear teagan ssly intact. Thoracic lumbar spinal fusion hardware IMPRESSION: 1. Cardiomegaly with asymmetric pulmonary edema. 2. Small pleural effusions with right greater than left bibasilar predominant consolidation which may represent atelectasis versus pneumonia. ACT 112: Negative or not required by law. The above report was generated using voice recognition software. It may contain grammatical, syntax o r spelling errors. Electronically signed by: Tigre Lucas M.D. 12/21/2023 6:02 PM
[2023-12-21 18:25] LABS: Alanine Aminotransferase 21 U/L (7-52); Albumin Level 3.2 gm/dl (3.4-5.0); Alkaline Phosphatase 59 U/L (34-104); Anion Gap 7 (3-11); Aspartate Aminotransferase 21 U/L (13-39); BUN Creatinine Ratio 35.4 (10-20); Bilirubin,Total 0.6 mg/dl (0.2-1.0); Blood Urea Nitrogen 45 mg/dl (6-23); Calcium 8.4 mg/dl (8.6-10.3); Carbon Dioxide 23 mmol/L (21-32); Chloride 108 mmol/L (98-107); Est GFR (African American) 65.9 ml/min; Est GFR (Non-African American) 56.9 ml/min; Globulin 3.2 gm/dl (2.5-4.0); Glucose 237 mg/dl (70-99(Fasting)); Potassium 4.5 mmol/L (3.5-5.1); Sodium 138 mmol/L (136-145); Total Protein 6.4 gm/dl (6.0-8.3)
[2023-12-21 18:33] LABS: Troponin I High Sensitivity 284.5 pg/ml (0-20)
[2023-12-21 18:35] LABS: Partial Thromboplastin Time 27 Seconds (21-31); Prothrombin Time 11.2 Seconds (9.0-12.0)
--- NOTE | 2023-12-21 18:38 | Emergency Department Note ---
Impression & Plan Shortness of breath, Pulmonary edema, Non-ST elevation [place] (NSTEMI), Elevated brain natriuretic peptide (BNP) level ED Provider Note HISTORY OF PRESENT ILLNESS: Patient is a 68-year-old male presenting with shortness of breath. Patient reports that he awoke from sleep last night with feeling like he could not catch his breath. Reports symptoms continued throughout today. He was recently admitted to the hospital and was discharged 6 days ago from the hospital. He denies any chest pain. Reports he feels like he just cannot catch his breath. Denies any DVT or PE history. Denies any recent cough or fevers. Denies any recent sick contact exposures. He is on aspirin and Plavix. Patient does report he took a sublingual nitro prehospital and was feeling improved initially after that. ROS: as above PHYSICAL EXAM: Constitutional: Patient appears in no acute distress. HENT: Head: Normocephalic and atraumatic. Eyes: EOMI, PERRL Mouth/Throat: Mucous membranes moist. Neck: Trachea midline. Neck supple. Cardiovascular: RRR, No murmurs, rubs or gallops. Intact distal pulses. Pulmonary/Chest: No respiratory distress. Breath sounds clear and equal bilaterally. No wheezes or rales. Abdominal: Abdomen soft, no tenderness, rebound or guarding. Musculoskeletal: No edema, tenderness or deformity noted. Bilateral [id number] amputations. Skin: Warm and dry. No rash, erythema, pallor or cyanosis Psychiatric: Appropriate mood and affect for situation. Neurological: Alert and keenly responsive. CN II-XII grossly intact, moving all extremities equally and fully. MDM: - Vitals signs showed hypotension - History obtained via patient. History as above. - Chronic conditions affecting care: HTN; HFrEF; CVA; CAD (s/p PCI); HLD; GERD; DM-2; PVD - Differential diagnoses include, but are not limited to: Congestive heart failure; acute coronary syndrome; COPD/asthma exacerbation; pulmonary edema; pulmonary embolism; pneumonia; pneumothorax; viral syndrome - Order placed for continuous cardiac monitoring. At this time, monitor showed rate of 100 bpm with normal sinus rhythm, per my interpretation. - External medical records reviewed. Discharge summary dated 12/15/2023 was reviewed. Patient was admitted at that time due to acute hypoxic respiratory failure secondary to acute on chronic CHF. - EKG interpreted by myself performed at 1638 showed normal sinus rhythm. Rate 100 bpm. QT 344. No acute ischemic changes. Noted to have some T wave inversions in V5 and V6. - Laboratory workup interpreted by myself showed normal WBC; stable hemoglobin (13); normal PT/INR; elevated BUN (45); hyperglycemia (glucose 237); hypocalcemia (Ca 8.4); normal liver function; elevated BNP (1118); elevated troponin (284.5) - CXR showed right-sided lower lobe pulmonary edema, per my interpretation. Radiology notes cardiomegaly with asymmetric pulmonary edema small pleural effusions (R> L) - Repeat EKG performed at 1842 showed normal sinus rhythm per my interpretation. Rate 92 bpm. QT 356. No acute ischemic changes. Noted to have persistent inversions in V5 and V6. - UA negative for infection. Noted to have trace blood. - CTA chest negative for PE. Noted to have scattered groundglass and consolidative opacities compatible with multifocal pneumonia. Also noted to have moderate bilateral pleural effusion and interstitial edema. - VBG normal - Patient given 40 mg IV lasix. - Repeat troponin risen to 355.3 - Discussion was had with machine adjuster leader case trim about patient's case and need for admission - Hospitalist consulted for admission - [facility] ASSESSMENT AND PLAN: Diagnosis: shortness of breath; pulmonary edema; NSTEMI; elevated BNP Plan: admit Past Med/Surg History Problem List (Updated 12/21/23 @ 22:58 by Cynthia Broussard MD) Elevated brain natriuretic peptide (BNP) level (Acute) Non-ST elevation [place] (NSTEMI) (Acute) Pulmonary edema (Acute) Shortness of breath (Acute) Hypotension Paroxysmal nocturnal dyspnea Elevated troponin History of non-ST elevation myocardial infarction (NSTEMI) Pleural effusion Acute on chronic heart failure with reduced ejection fraction and diastolic dysfunction HFrEF (heart failure with reduced ejection fraction) Ischemic cardiomyopathy Pneumonia DVT prophylaxis 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 Acute on chronic systolic heart failure Frequent PVCs NSTEMI (non-ST elevated myocardial infarction) COPD exacerbation (Acute) CHF exacerbation (Acute) Hypoxia (Acute) Nonhealing nonsurgical wound Chronic systolic heart failure Hypokalemia Cerebrovascular disease CAD in eek artery Hx NSTEMI 06/2020 Diabetic peripheral angiopathy Carotid artery disease S/P right CEA by Dr. Shepprad on 09/14/17. L Occluded carotid artery Emphysema of lung Dyslipidemia (Chronic) GERD (gastroesophageal reflux disease) (Chronic) DM type 2 (diabetes mellitus, type 2) (Chronic) Peripheral vascular disease (Chronic) Tobacco dependence (Chronic) Medical History MRSA infection Acute on chronic heart failure with reduced ejection fraction and diastolic dysfunction Altered mental status Leukocytosis Elevated troponin Sepsis COVID-19 ruled out Dyslipidemia Non-ST elevation (NSTEMI) myocardial infarction CHF (congestive heart failure) Echo 05/30/20 LVEF 35%. Discharge planning issues DVT prophylaxis Diabetes mellitus type 2 with complications Coronary artery disease Non-STEMI May 2020. Cath [facility] [place] 06/02/20- severe diffuse multi-vessel disease. 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 Surgical History History of left-sided carotid endarterectomy Status post cardiac catheterization [facility] [place] 06/02/20- severe diffuse multi-vessel disease; medical management recommended Status post above-knee amputation of right lower extremity [facility] [place] 06/03/20 History of right below knee amputation 11/15/[address] Sheppard History of angioplasty of peripheral vessel L LEG left popliteal artery angioplasty and stent as left AT/peroneal/TP trunk angioplasty on 05/10/[address] Sheppard left AKA on 12/19/17 09/27/17 for angioplasty/stent of the left SFA, but noted to have a BK- popliteal occlusion (would need a left fem=>AT bypass). left common femoral endarterectomy with vein patch angioplasty and common femoral artery => anterior tibial artery bypass using non-reversed left great saphenous vein 10/20/2017. R LEG RSFA stent and, angioplasty of PT/peroneal artery 06/06/[address] Mosqueda S/P right TOMMIE/TP-trunk/peroneral/PT angioplasty by Dr. Mosqueda on 10/25/18. 02/2019 again prompted additional intervention He underwent bilateral common & external iliac artery stents (one 7 x 80 mm Everflex stent on each side) and right SFA/pop/TP-trunk angioplasty by Dr. Sheppard 04/03/19. 05/09/20 He underwent balloon angioplasty of right SFA/popliteal/TP-trunk/peroneral arteries and open amputation of the R 5th toe by Dr. Sheppard on 08/10/19. 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 History of spinal fusion "05/[address] Reeder" Family History Sister Myocardial infarction Other Family history non-contributory Denies family history of Ovarian cancer Prostate cancer Breast cancer Colorectal cancer Social History Smoking Status: Current every day smoker Tobacco Type: Cigarettes packs per day: 0.5; Cigarettes Per Day: 10; Second Hand Exposure: No; Do You Dip or Chew Tobacco: No; Hx Alcohol Use: No Hx Substance Use: No Preferred Language: Armenian Communication Ability: Effective Senior Project Manager Required: No Beliefs That Will Affect Care: None marital status: Current Living Situation: Significant Other current occupational status: retired How many Children do You have: 1 How many Children do You have Comment: LOCAL SON THAT IS ABLE TO HELP. ALSO HAS SISTER WHO IS ABLE TO HELP NEEDED. Feels Safe at Home: Yes Diet: diabetic during the past year weight has: increased > 10 lbs Dental Care, Regularly: No Physical Activity Frequency: Does not Exercise Seatbelt Use: sometimes Sunscreen Use: No Assistive Devices: Scooter/Electric Scooter and Wheelchair Allergies Allergies Allergy/AdvReac Type Severity Reaction Status Date / Time No Known Allergies Allergy Verified 12/21/23 19:26 Home Meds Home Medications Medication Instructions Recorded Confirmed aspirin 81 mg tablet,delayed 81 mg PO QAM 04/30/20 12/21/23 release clopidogrel 75 mg tablet (Plavix) 75 mg PO QAM 04/30/20 12/21/23 ascorbic acid (vitamin C) 500 mg 500 mg PO QPM 06/29/20 12/21/23 tablet cholecalciferol (vitamin D3) 50 2,000 unit PO QAM 06/29/20 12/21/23 mcg (2,000 unit) capsule (Vitamin D3) famotidine 20 mg tablet 20 mg PO QAM 06/29/20 12/21/23 lisinopril 2.5 mg tablet 2.5 mg PO QAM 06/29/20 12/21/23 empagliflozin 25 mg tablet 25 mg PO QAM 02/10/22 12/21/23 (Jardiance) melatonin 10 mg tablet 10 mg PO HS 02/10/22 12/21/23 dulaglutide 4.5 mg/0.5 mL 4.5 mg subcut WK 06/21/23 12/21/23 subcutaneous pen injector (Trulicity) gabapentin 300 mg capsule 300 mg PO QID 06/21/23 12/21/23 rosuvastatin 40 mg tablet 40 mg PO DAILY 12/10/23 12/21/23 Previous Rx's Medication Instructions Recorded pantoprazole 40 mg tablet,delayed 40 mg PO DAILY #30 tabs 02/11/22 release (Protonix) furosemide 40 mg tablet 40 mg PO QAM #30 tabs 12/15/23 metoprolol succinate 25 mg 25 mg PO BID #60 tabs 12/15/23 tablet,extended release 24 hr nitroglycerin 0.6 mg sublingual 0.6 mg sublingual Q5M PRN chest 12/15/23 tablet (Nitrostat) pain #20 tabs Results & Data (ED) Vital Signs Vital Signs - 24 hr 12/21/23 16:31 12/21/23 16:38 12/21/23 17:29 Temperature 36.3 C L Temperature Source Temporal Artery Scan Pulse Rate 92 H Pulse Rate [Apical] 84 Pulse Rhythm Regular Respiratory Rate 20 18 Respiratory Effort / Characteristics Non-Labored Spontaneous Respiratory Depth Normal Respiratory Pattern Regular Blood Pressure 103/63 Blood Pressure [Right Arm] 97/56 L Blood Pressure Mean 76 Blood Pressure Mean [Right Arm] 69 Blood Pressure Position [Right Arm] Lying Pulse Oximetry 90 92 Oxygen Delivery Method Room Air Room Air Sepsis Recent Fever Within 48 Hours No Sepsis New/Unexplained Change in Mental Status N/A Sepsis Action Taken by Nursing No Action Required 12/21/23 17:39 12/21/23 19:10 12/21/23 19:11 Temperature Temperature Source Pulse Rate 86 Pulse Rate [Apical] 100 H Pulse Rhythm Respiratory Rate 20 Respiratory Effort / Characteristics Non-Labored Spontaneous Respiratory Depth Normal Respiratory Pattern Blood Pressure Blood Pressure [Right Arm] 110/66 Blood Pressure Mean Blood Pressure Mean [Right Arm] 80 Blood Pressure Position [Right Arm] Sitting Pulse Oximetry 92 92 Oxygen Delivery Method Room Air Room Air Sepsis Recent Fever Within 48 Hours Sepsis New/Unexplained Change in Mental Status Sepsis Action Taken by Nursing 12/21/23 20:59 Temperature Temperature Source Pulse Rate Pulse Rate [Apical] 89 Pulse Rhythm Respiratory Rate 22 Respiratory Effort / Characteristics Non-Labored Spontaneous Respiratory Depth Normal Respiratory Pattern Regular Blood Pressure Blood Pressure [Right Arm] 100/57 L Blood Pressure Mean Blood Pressure Mean [Right Arm] 71 Blood Pressure Position [Right Arm] Sitting Pulse Oximetry 96 Oxygen Delivery Method Room Air Sepsis Recent Fever Within 48 Hours Sepsis New/Unexplained Change in Mental Status Sepsis Action Taken by Nursing Laboratory Data 12/21/23 17:44 12/21/23 17:44 Lab Results 12/21/23 12/21/23 12/21/23 Range/Units 17:44 20:14 20:58 WBC 9.72 (4.8-10.8) K/ul RBC 3.98 L (4.70-6.10) M/uL Hgb 13.0 L (14.0-18.0) g/dl Hct 39.4 L (42.0-52.0) % MCV 99.0 (80.0-100.0) fL MCH 32.7 (25.0-34.0) pg MCHC 33.0 (32.0-36.0) g/dL RDW Std Deviation 51.1 H (36.4-46.3) fL RDW Coeff of Martin 14.0 (11.5-14.5) % Plt Count 227 (130-400) K/uL MPV 10.7 (9.4-12.4) fL Immature Gran % (Auto) 0.5 % Neut % (Auto) 69.5 % Lymph % (Auto) 20.3 % [place] % (Auto) 7.2 % Eos % (Auto) 1.9 % Baso % (Auto) 0.6 % Neut # (Auto) 6.76 H (1.40-6.50) K/uL Lymph # (Auto) 1.97 (1.20-3.40) K/uL [place] # (Auto) 0.70 H (0.11-0.59) K/uL Eos # (Auto) 0.18 (0.00-0.50) K/uL Baso # (Auto) 0.06 (0.00-0.20) K/uL Immature Gran # (Auto) 0.05 (0.01-0.20) K/uL PT 11.2 (9.0-12.0) Seconds INR 1.0 (0.9-1.1) APTT 27 (21-31) Seconds PTT Ratio 1.0 VBG pH 7.41 (7.36-7.41) VBG pCO2 40 (38-50) mmHg VBG pO2 28 mmHg VBG HCO3 25 mmol/L VBG O2 Saturation < 60.0 % VBG Base Excess 0.7 mEq/L Sodium 138 (136-145) mmol/L Potassium 4.5 (3.5-5.1) mmol/L Chloride 108 H (98-107) mmol/L Carbon Dioxide 23 (21-32) mmol/L Anion Gap 7 (3-11) BUN 45 H (6-23) mg/dl Creatinine 1.27 (0.6-1.4) mg/dl Est Cr Clr Drug Dosing Not Reportable Est GFR ( Amer) 65.9 ml/min Est GFR (Non-Af Amer) 56.9 ml/min BUN/Creatinine Ratio 35.4 H (10-20) Glucose 237 H (70-99(Fasting)) mg/dl Calcium 8.4 L (8.6-10.3) mg/dl Magnesium 2.2 (1.7-2.4) mg/dl Total Bilirubin 0.6 (0.2-1.0) mg/dl AST 21 (13-39) U/L ALT 21 (7-52) U/L Alkaline Phosphatase 59 (34-104) U/L Troponin I High Sens 284.5 H* 355.3 H* D (0-20) pg/ml B-Natriuretic Peptide 1118 H (0-100) pg/ml Total Protein 6.4 (6.0-8.3) gm/dl Albumin 3.2 L (3.4-5.0) gm/dl Globulin 3.2 (2.5-4.0) gm/dl Albumin/Globulin Ratio 1.0 (0.9-2) Procalcitonin 0.05 (0-0.5) ng/ml Urine Color Yellow Urine Appearance Clear (Clear) Urine pH 6.0 (4.5-7.5) Ur Specific [place] > 1.045 H (1.000-1.030) Urine Protein 2+ H (Negative) Urine Glucose (UA) 1+ H (Negative) Urine Ketones Negative (Negative) Urine Blood Trace H (Negative) Urine Nitrite Negative (Negative) Urine Bilirubin Negative (Negative) Urine Urobilinogen Negative (Negative) Ur Leukocyte Esterase Negative (Negative) Urine WBC (Auto) 0-5 (0-5) /hpf Urine RBC (Auto) 0-2 (0-2) /hpf U Hyaline Cast (Auto) 0-2 (0-2) /lpf U Epithel Cells (Auto) 0-2 (0-2) /hpf Urine Bacteria (Auto) None Seen (None Seen) Administered Medications Discontinued Medications Furosemide (Furosemide 40 Mg/4 Ml Vial) 40 mg IV ONE ONE Stop: 12/21/23 20:45 Last Admin: 12/21/23 21:01 Dose: 40 mg Documented By: Ioversol (Optiray 320 125ml) 115 ml IV ONCE ONE Stop: 12/21/23 19:52 Last Admin: 12/21/23 19:52 Dose: 115 ml Documented By: BARRY Imaging Data Radiologist's Impression: Chest X-Ray 12/21/23 16:35 XR chest 1V portable HISTORY: 68 years-old Male Dyspnea acute shortness of breath COMPARISON: 12/11/2023 TECHNIQUE: AP view of the chest FINDINGS: Cardiomegaly. Mixed interstitial and alveolar opacities are similar to prior, right greater than left. Small pleural effusions with bibasilar predominant consolidation. No pneumothorax. Bones appear grossly intact. Thoracic lumbar spinal fusion hardware IMPRESSION: 1. Cardiomegaly with asymmetric pulmonary edema. 2. Small pleural effusions with right greater than left bibasilar predominant consolidation which may represent atelectasis versus pneumonia. ACT 112: Negative or not required by law. The above report was generated using voice recognition software. It may contain grammatical, syntax or spelling errors. Electronically signed by: Tigre Lucas M.D. 12/21/2023 6:02 PM Chest CTA 12/21/23 18:38 CT angio chest PE protocol CLINICAL HISTORY: PE TECHNIQUE: Multidetector row helical CT of the chest was performed with angiographic protocol. Coronal and sagittal reformations were obtained. Coronal and sagittal MIPS were obtained from the axial data set and were submitted for review. Automated dose lowering techniques and/or adjustment according to patient size were utilized for this exam. CT DOSE: 976.63 mGy.cm Comparison: Comparison is made to CT chest 05/30/2020 FINDINGS: Lungs and pleura: Moderate bilateral pleural effusions are seen with underlying atelectasis. Smooth interlobular septal thickening is seen and there are groundglass and consolidative opacities most prominent in the right greater than left upper lobes. Heart and pericardium: Heart size is normal. No pericardial effusion. Vessels: No evidence of pulmonary embolism. Mediastinum and valorie: Subcentimeter lymph nodes are seen. Chest wall and lower neck: Unremarkable. Abdomen: Unremarkable. Bones: Unremarkable. IMPRESSION: 1. No pulmonary embolus. 2. Scattered groundglass and consolidative opacities compatible with multifocal pneumonia. 3. Moderate bilateral pleural effusions and likely interstitial edema. ACT 112: Negative or not required by law. Electronically signed by: Eduardo Scott M.D. 12/21/2023 8:37 PM Discharge Plan Visit Data Chief Complaint: Shortness of Breath/Dyspnea Stated Complaint: SOB ED Provider: Cynthia Broussard Discharge Problem: Shortness of breath, Pulmonary edema, Non-ST elevation [place] (NSTEMI), Elevated brain natriuretic peptide (BNP) level Patient Disposition: Admitted As Inpatient Discharge Instructions Interventions: ED Discharge Assessment Last Done: 12/21/23 22:13
[2023-12-21] MEDS: OPTIRAY 320 125ml IV ONE (19:52)
[2023-12-21 20:24] LABS: Base Excess VBG 0.7 mEq/L; HCO3 VBG 25 mmol/L; Oxygen Saturation VBG < 60.0 %; PCO2 VBG 40 mmHg (38-50); PO2 VBG 28 mmHg; pH VBG 7.41 (7.36-7.41)
--- NOTE | 2023-12-21 20:39 | CT Scan Report ---
CT angio chest PE protocol CLINICAL HISTORY: PE TECHNIQUE: Multidetector row helical CT of the chest was performed with angiographic protocol. Ornelas l and sagittal reformations were obtained. Coronal and sagittal MIPS were obtained from the axial terell a set and were submitted for review. Automated dose lowering techniques and/or adjustment according to patient size were utilized for this exam. CT DOSE: 976.63 mGy.cm Comparison: Comparison is made to CT chest 05/30/2020 FINDINGS: Lungs and pleura: Moderate bilateral pleural effusions are seen with underlying atelectasis. Smooth i nterlobular septal thickening is seen and there are groundglass and consolidative opacities most prom inent in the right greater than left upper lobes. Heart and pericardium: Heart size is normal. No pericardial effusion. Vessels: No evidence of pulmonary embolism. Mediastinum and valorie: Subcentimeter lymph nodes are seen. Chest wall and lower neck: Unremarkable. Abdomen: Unremarkable. Bones: Unremarkable. IMPRESSION: 1. No pulmonary embolus. 2. Scattered groundglass and consolidative opacities compatible with multifocal pneumonia. 3. Moderate bilateral pleural effusions and likely interstitial edema. ACT 112: Negative or not required by law. Electronically signed by: Eduardo Scott M.D. 12/21/2023 8:37 PM
--- NOTE | 2023-12-21 20:53 | History & Physical Report ---
Date of Service December 21, 2023 Assessment & Plan (1) Acute on chronic heart failure with reduced ejection fraction and diastolic dysfunction: Plan: Acute onset of SOB that woke him from sleep around 0100 on 12/20 Suspect secondary to PND and pleural effusions Last echo on 12/11/23 revealed LVEF at 15-20% with severe septum and inferior wall hypokinesis BNP elevated at 1118 (most previously 1251 on 12/10/2023) Daily weights Strict I&O monitoring Continue Jardiance Lasix 40 mg IV BID17 AHA diet, low-sodium (1500 mL fluid restriction) K supplementation 10mEq p.o. daily Continuous pulse ox and supplemental oxygen as needed to maintain SpO2 >94% A.m. CBC, BMP, mag (2) Pleural effusion: Plan: Moderate bilateral pleural effusions on chest CTA Likely the main contributor to SOB Lasix (as above) (3) Pneumonia: Plan: Potential PNA; chest CTA revealed scattered groundglass opacities which may be compatible with multifocal pneumonia Procalcitonin ordered, pending Sputum culture ordered, pending Blood cultures ordered, pending Will defer antibiotics as no fever or leukocytosis at this time; add on abx pending above results PCT/blood-cultures (4) DM type 2 (diabetes mellitus, type 2): Plan: Last A1c at 7.1% on 12/05/2023 Glucose 237 on admission Dulaglutide held SSI; with target BSG range 110-140mg/dL, CF 50, carb ratio 15 T2DM diet BSG ACHS Adjust regimen as needed (5) Elevated troponin: Plan: Troponin 204.5-->355.3 on arrival Clinically, patient denies chest pain, chest pressure, or left shoulder/jaw pain/pressure Likely demand ischemia, or residual troponin from recent NSTEMI; unclear if new blockage Discussed with Dr. Rooney and will defer low-dose heparin IV Trend troponin q6h to peak EKG as needed for chest pain Continuous telemetry monitoring (6) History of non-ST elevation myocardial infarction (NSTEMI): Plan: Initial history of NSTEMI 06/2020 Remote history of NSTEMI at [place] from 12/10/23 - 12/15/23 Continue DAPT Continue beta-adriane Continue statin (7) Emphysema of lung: Plan: Tobacco abuse; 0.5 PPD Consider adding on steroids, incentive telemetry, flutter valve, and DuoNebs (if wheezing develops) (8) Hypotension: Plan: BP low on arrival Monitor closely with Lasix use, and recommend holding if SBP<90 (9) Paroxysmal nocturnal dyspnea: Plan Disposition: Admit to PCU telemetry DNR/DNI Heart healthy, T2DM diet VTE PPX: Heparin 5000 units SQ q12h History of Present Illness Chief Complaint: SOB/dyspnea Primary Care Provider: KACIE Grigsby Sunil is a pleasant 68-year-old male with PMH of NSTEMI, T2DM, tobacco dependence, PVD, GERD, dyslipidemia, CAD, ischemic cardiomyopathy, HFrEF, COPD, bilateral [id number] amputation, and CVA. He presented for SOB that woke him from sleep around 0100 on 12/20. SOB occurred at rest, was worse when lying flat, and improved slightly when sitting up. He does not use supplemental oxygen at home. No CPAP at night. While the patient's SOB improved initially, it then returned and worsened throughout the day. He also notes he has had an ongoing dry cough as well as pleuritic chest pain with deep breaths (which is new today). No recent sick contacts. No prior experiences like this one. Recent [facility] admission from 12/09 - 12/14 for NSTEMI. No PMH of DVT/PE. No recent falls or injuries/trauma to the chest wall. Patient is a current everyday tobacco cigarette smoker; 0.5 PPD. He denies any alcohol use or recreational drug use. No recent change in diet, and patient reports that he does watch his salt intake. No recent change in weight. Patient notes he did have a ham and cheese sandwich last night. Patient took nitro SL at home earlier in the day, and reports that it did help. He did not take any of his regular morning medications today; no recent change in medications. Patient is mildly tachycardic around 100 bpm at time of admission SpO2 92% on RA. ED course: Lasix 40 mg IV ROS: Patient endorses SOB at rest, orthopnea, PND, pleuritic CP, and dry cough. Patient denies fever, chills, dizziness, lightheadedness, SOLOMON, chest pain, chest pressure, left arm/shoulder/back pain or pressure, hemoptysis, chest palpitations, abdominal pain, N/V/D, changes in urinary or bowel habits, blood in the urine or stool, or numbness or tingling in the arms. Please see Dr. Rooney's attestation for any changes to treatment plan. Allergies Allergy/AdvReac Type Severity Reaction Status Date / Time No Known Allergies Allergy Verified 12/21/23 19:26 Home Medications Medication Instructions Recorded Confirmed Type aspirin 81 mg tablet,delayed 81 mg PO QAM 04/30/20 12/21/23 History release clopidogrel 75 mg tablet (Plavix) 75 mg PO QAM 04/30/20 12/21/23 History ascorbic acid (vitamin C) 500 mg 500 mg PO QPM 06/29/20 12/21/23 History tablet cholecalciferol (vitamin D3) 50 2,000 unit PO QAM 06/29/20 12/21/23 History mcg (2,000 unit) capsule (Vitamin D3) famotidine 20 mg tablet 20 mg PO QAM 06/29/20 12/21/23 History lisinopril 2.5 mg tablet 2.5 mg PO QAM 06/29/20 12/21/23 History empagliflozin 25 mg tablet 25 mg PO QAM 02/10/22 12/21/23 History (Jardiance) melatonin 10 mg tablet 10 mg PO HS 02/10/22 12/21/23 History pantoprazole 40 mg tablet,delayed 40 mg PO DAILY #30 tabs 02/11/22 12/21/23 Rx release (Protonix) dulaglutide 4.5 mg/0.5 mL 4.5 mg subcut WK 06/21/23 12/21/23 History subcutaneous pen injector (Trulicity) gabapentin 300 mg capsule 300 mg PO QID 06/21/23 12/21/23 History rosuvastatin 40 mg tablet 40 mg PO DAILY 12/10/23 12/21/23 History furosemide 40 mg tablet 40 mg PO QAM #30 tabs 12/15/23 12/21/23 Rx metoprolol succinate 25 mg 25 mg PO BID #60 tabs 12/15/23 12/21/23 Rx tablet,extended release 24 hr nitroglycerin 0.6 mg sublingual 0.6 mg sublingual Q5M PRN chest 12/15/23 12/21/23 Rx tablet (Nitrostat) pain #20 tabs Past Med/Surg History Problem List (Updated 12/21/23 @ 22:58 by Cynthia Broussard MD) Elevated brain natriuretic peptide (BNP) level (Acute) Non-ST elevation [place] (NSTEMI) (Acute) Pulmonary edema (Acute) Shortness of breath (Acute) Hypotension Paroxysmal nocturnal dyspnea Elevated troponin History of non-ST elevation myocardial infarction (NSTEMI) Pleural effusion Acute on chronic heart failure with reduced ejection fraction and diastolic dysfunction HFrEF (heart failure with reduced ejection fraction) Ischemic cardiomyopathy Pneumonia DVT prophylaxis 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 Acute on chronic systolic heart failure Frequent PVCs NSTEMI (non-ST elevated myocardial infarction) COPD exacerbation (Acute) CHF exacerbation (Acute) Hypoxia (Acute) Nonhealing nonsurgical wound Chronic systolic heart failure Hypokalemia Cerebrovascular disease CAD in [place] artery Hx NSTEMI 06/2020 Diabetic peripheral angiopathy Carotid artery disease S/P right CEA by Dr. Sheppard on 09/14/17. L Occluded carotid artery Emphysema of lung Dyslipidemia (Chronic) GERD (gastroesophageal reflux disease) (Chronic) DM type 2 (diabetes mellitus, type 2) (Chronic) Peripheral vascular disease (Chronic) Tobacco dependence (Chronic) Medical History MRSA infection Acute on chronic heart failure with reduced ejection fraction and diastolic dysfunction Altered mental status Leukocytosis Elevated troponin Sepsis COVID-19 ruled out Dyslipidemia Non-ST elevation (NSTEMI) myocardial infarction CHF (congestive heart failure) Echo 05/30/20 LVEF 35%. Discharge planning issues DVT prophylaxis Diabetes mellitus type 2 with complications Coronary artery disease Non-STEMI May 2020. Cath [facility] [place]- severe diffuse multi-vessel disease. 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 Surgical History History of left-sided carotid endarterectomy Status post cardiac catheterization [facility] [place]/20- severe diffuse multi-vessel disease; medical management recommended Status post above-knee amputation of right lower extremity [facility] [place]/03/20 History of right below knee amputation 11/15/[address] Sheppard History of angioplasty of peripheral vessel L LEG left popliteal artery angioplasty and stent as left AT/peroneal/TP trunk angioplasty on 05/10/[address] Sheppard left AKA on 12/19/17 09/27/17 for angioplasty/stent of the left SFA, but noted to have a BK- popliteal occlusion (would need a left fem=>AT bypass). left common femoral endarterectomy with vein patch angioplasty and common femoral artery => anterior tibial artery bypass using non-reversed left great saphenous vein 10/20/2017. R LEG RSFA stent and, angioplasty of PT/peroneal artery 06/06/[address] Mosqueda S/P right TOMMIE/TP-trunk/peroneral/PT angioplasty by Dr. Mosqueda on 10/25/18. 02/2019 again prompted additional intervention He underwent bilateral common & external iliac artery stents (one 7 x 80 mm Everflex stent on each side) and right SFA/pop/TP-trunk angioplasty by Dr. Sheppard 04/03/19. 05/09/20 He underwent balloon angioplasty of right SFA/popliteal/TP-trunk/peroneral arteries and open amputation of the R 5th toe by Dr. Sheppard on 08/10/19. 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 History of spinal fusion "05/[address] Reeder" Family History Sister Myocardial infarction Other Family history non-contributory Denies family history of Ovarian cancer Prostate cancer Breast cancer Colorectal cancer Social History Smoking Status: Current every day smoker Tobacco Type: Cigarettes packs per day: 0.5; Cigarettes Per Day: 10 cigarettes a day; Second Hand Exposure: No; Do You Dip or Chew Tobacco: No; Hx Alcohol Use: No Hx Substance Use: No Preferred Language: Montene[place]in Communication Ability: Effective Regulatory Coordinator Required: No Beliefs That Will Affect Care: None marital status: Current Living Situation: Significant Other current occupational status: retired How many Children do You have: 1 How many Children do You have Comment: LOCAL SON THAT IS ABLE TO HELP. ALSO HAS SISTER WHO IS ABLE TO HELP NEEDED. Feels Safe at Home: Yes Safety Concerns: Feels Safe At This Time Diet: diabetic during the past year weight has: increased > 10 lbs Dental Care, Regularly: No Physical Activity Frequency: Does not Exercise Seatbelt Use: sometimes Sunscreen Use: No Assistive Devices: Glasses Review of Systems Review of Systems: See HPI above Physical Exam Physical Exam: General: Mild respiratory distress; pleasant affect; non-toxic appearing; cooperative; SpO2 96% on RA HEENT: normocephalic, atraumatic; no scleral icterus; PERRLA; moist mucus membrane; vision and hearing intact Neck: supple; no lymphadenopathy; trachea midline Skin: warm, dry without signs of tenting; no cyanosis; no rashes, bruising, lesions, or erythema noted CV: chest wall NTP; RRR; S1/S2 normal; no murmurs/rubs/gallops; pulses intact and symmetric at radial, DP, and PT Lungs: Mild respiratory distress; symmetrical chest wall expansion; clear breath sounds across all lung lee w/o adventitious sounds; no wheezing ABD: Soft, NTP; BS present; no rebound/guarding; no distention MSK: no tics or fasciculations; bilateral AKA amputations Neuro: A&Ox3; normal mood and affect; fluent speech; no focal deficits Results & Data Results & Data Vital Signs (Past 12 Hours) Vital Signs Temp Pulse Pulse Resp BP BP Pulse Ox 12/21/23 19:11 100 H 20 110/66 92 12/21/23 19:10 92 12/21/23 17:39 86 12/21/23 17:29 84 18 97/56 L 92 12/21/23 16:31 36.3 C L 92 H 20 103/63 90 O2 Del Method 12/21/23 19:11 Room Air 12/21/23 19:10 Room Air 12/21/23 17:39 12/21/23 17:29 Room Air 12/21/23 16:31 Room Air Laboratory Results Abnormal lab results 12/21/23 Range/Units 17:44 RBC 3.98 L (4.70-6.10) M/uL Hgb 13.0 L (14.0-18.0) g/dl Hct 39.4 L (42.0-52.0) % RDW Std Deviation 51.1 H (36.4-46.3) fL Neut # (Auto) 6.76 H (1.40-6.50) K/uL [place] # (Auto) 0.70 H (0.11-0.59) K/uL Chloride 108 H (98-107) mmol/L BUN 45 H (6-23) mg/dl BUN/Creatinine Ratio 35.4 H (10-20) Glucose 237 H (70-99(Fasting)) mg/dl Calcium 8.4 L (8.6-10.3) mg/dl Troponin I High Sens 284.5 H* (0-20) pg/ml B-Natriuretic Peptide 1118 H (0-100) pg/ml Albumin 3.2 L (3.4-5.0) gm/dl Diagnostic Findings Chest X-Ray 12/21/23 16:35 XR chest 1V portable HISTORY: 68 years-old Male Dyspnea acute shortness of breath COMPARISON: 12/11/2023 TECHNIQUE: AP view of the chest FINDINGS: Cardiomegaly. Mixed interstitial and alveolar opacities are similar to prior, right greater than left. Small pleural effusions with bibasilar predominant consolidation. No pneumothorax. Bones appear grossly intact. Thoracic lumbar spinal fusion hardware IMPRESSION: 1. Cardiomegaly with asymmetric pulmonary edema. 2. Small pleural effusions with right greater than left bibasilar predominant consolidation which may represent atelectasis versus pneumonia. ACT 112: Negative or not required by law. The above report was generated using voice recognition software. It may contain grammatical, syntax or spelling errors. Electronically signed by: Tigre Lucas M.D. 12/21/2023 6:02 PM Chest CTA 12/21/23 18:38 CT angio chest PE protocol CLINICAL HISTORY: PE TECHNIQUE: Multidetector row helical CT of the chest was performed with angiographic protocol. Coronal and sagittal reformations were obtained. Coronal and sagittal MIPS were obtained from the axial data set and were submitted for review. Automated dose lowering techniques and/or adjustment according to patient size were utilized for this exam. CT DOSE: 976.63 mGy.cm Comparison: Comparison is made to CT chest 05/30/2020 FINDINGS: Lungs and pleura: Moderate bilateral pleural effusions are seen with underlying atelectasis. Smooth interlobular septal thickening is seen and there are groundglass and consolidative opacities most prominent in the right greater than left upper lobes. Heart and pericardium: Heart size is normal. No pericardial effusion. Vessels: No evidence of pulmonary embolism. Mediastinum and valorie: Subcentimeter lymph nodes are seen. Chest wall and lower neck: Unremarkable. Abdomen: Unremarkable. Bones: Unremarkable. IMPRESSION: 1. No pulmonary embolus. 2. Scattered groundglass and consolidative opacities compatible with multifocal pneumonia. 3. Moderate bilateral pleural effusions and likely interstitial edema. ACT 112: Negative or not required by law. Electronically signed by: Eduardo Scott M.D. 12/21/2023 8:37 PM ECG Additional Comments: ECG on arrival revealed NSR with ST and T wave abnormalities at 100 bpm; QTc 443 Code Status & VTE Plan Code Status DNR/DNI (discussed with patient and patient's at bedside) VTE Prophylaxis Plan VTE Prophylaxis will be ordered: Yes Supervising Physician Co-Signing Physician Notes Patient seen and examined, chart reviewed, case discussed with DENTON Christina and I agree with the assessment and plan as above. In brief, patient is a 68yo male with history of CAD, ICM with EF of 15-20%, DM, HLP presenting with shortness of breath which woke him from sleep on 12/21/23 AM. Patient reports he has missed several doses of his medications. Pleuritic chest pain On exam patient is resting comfortably, NAD Skin - intact, no rash HEENT - MMM, Neck supple, no JVD Heart - +S1/S2, regular, no m/r/g Lungs - diminished in bilateral bases, no rales/rhonchi/wheezes Abd - +BS, soft, NT/ND Ext - s/p bilateral BKA Neuro - grossly nonfocal Labs and images reviewed. BNP is elevated at 1118 Troponin 284.5 --> 355 --> 423 No leukocytosis. Procalcitonin is NEGATIVE Assessment/Plan Suspect acute on chronic HFrEF. Likely in part secondary to medication non- adherence -Admit to PCU -Trend troponin to peak -Diuresis with Lasix 40mg IV BID. Monitor I/Os, weights -Will hold off on empiric antibiotics for now. Patient is afebrile, no leukocytosis, normal procalcitonin. Low threshold to initiate antibiotics for PNA should patient become febrile -Will hold off on Heparin for now - elevation of troponin is likely demand ischemia. -Remainder as above PG Care Time/CCT Total # of Minutes Spent Total Time Spent with Patient: Total time spent is greater than 50% in coordination of care (as documented) at patient's floor/unit and/or counseling patient: C[place] [address] INT INP/OBS CARE 3/75MIN Patient Type Established Medical Decision Making High Complexity Diagnoses Acute on chronic heart failure with reduced ejection fraction and diastolic dysfunction I50.43 Pleural effusion J90 Pneumonia J18.9 Type 2 diabetes mellitus with diabetic neuropathy, with long-term current use of insulin E11.40; Z79.4 Diabetes mellitus complication detail: with unspecified neuropathy Diabetes mellitus complication status: with neurologic complications 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 mellitus 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 terminal attack controller insulin use: with joint terminal attack controller use Elevated troponin R77.8 History of non-ST elevation myocardial infarction (NSTEMI) I25.2 Pulmonary emphysema, unspecified emphysema type J43.9 Emphysema type: unspecified Hypotension I95.9 Paroxysmal nocturnal dyspnea R06.00 (4) DM type 2 (diabetes mellitus, type 2) Diabetes mellitus complication detail: with unspecified neuropathy Diabetes mellitus complication status: with neurologic complications Diabetes mellitus joint terminal attack controller insulin use: with halfway use Qualified Code(s): E11.40 - Type 2 diabetes mellitus with diabetic neuropathy, unspecified; 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
[2023-12-21] MEDS: FUROSEMIDE 40 MG/4 ML VIAL IV ONE (21:01)
[2023-12-21 21:02] LABS: Troponin I High Sensitivity 355.3 pg/ml (0-20)
[2023-12-21 21:19] LABS: Appearance Urine Clear (Clear); Bacteria Urine Automated None Seen (None Seen); Bilirubin Urine Negative (Negative); Blood Urine Trace (Negative); Cast Urine Automated 0-2 /lpf (0-2); Color Urine Yellow; Epithelial Cell Urine Auto 0-2 /hpf (0-2); Glucose Urine UA 1+ (Negative); Ketones Urine Negative (Negative); Leukocyte Esterase Urine Negative (Negative); Nitrite Urine Negative (Negative); Protein Urine 2+ (Negative); RBC Urine Automated 0-2 /hpf (0-2); Specific Gravity Urine > 1.045 (1.000-1.030); Urobilinogen Urine Negative (Negative); WBC Urine Automated 0-5 /hpf (0-5)
[2023-12-21 22:23] LABS: Magnesium 2.2 mg/dl (1.7-2.4)
[2023-12-21] MEDS ORDERED: ACETAMINOPHEN 325 MG TAB PO PRN (23:01)
[2023-12-21] MEDS ORDERED: DEXTROSE 50% 50 ML SYRINGE IV PRN (23:01)
[2023-12-21] MEDS ORDERED: GLUCOSE 10 TAB/TUBE PO PRN (23:01)
[2023-12-21] MEDS ORDERED: GLUCAGON FOR INJ 1 MG VIAL SQ PRN (23:01)
[2023-12-21] MEDS ORDERED: CARBOHYDRATES FOR HYPOGLYCEMIA PO PRN (23:01)
[2023-12-21] MEDS ORDERED: GLUCOSE 40% GEL 15 GM TUBE PO PRN (23:01)
[2023-12-21] MEDS: MELATONIN 3 MG TAB PO SCH (23:29)
[2023-12-21] MEDS: HEPARIN SOD 5,000 UNIT/0.5 ML VIAL SQ ONE (23:30)
[2023-12-22] MEDS: INSULIN ASPART PER UNIT CHARGE SC SCH (00:28)
[2023-12-22 06:16] LABS: Eosinophils # (auto) 0.29 K/uL (0.00-0.50); Eosinophils % (auto) 2.8 %; Hematocrit (blood only) 42.4 % (42.0-52.0); Hemoglobin 14.4 g/dl (14.0-18.0); Immature Granulocytes # (auto) 0.06 K/uL (0.01-0.20); Immature Granulocytes % (auto) 0.6 %; Lymphocytes # (auto) 2.73 K/uL (1.20-3.40); Lymphocytes % (auto) 26.5 %; Mean Corpuscular Volume 97.2 fL (80.0-100.0); Mean Platelet Volume 10.3 fL (9.4-12.4); Monocytes # (auto) 0.75 K/uL (0.11-0.59); Monocytes % (auto) 7.3 %; Neutrophils # (auto) 6.36 K/uL (1.40-6.50); Neutrophils % (auto) 61.8 %; Platelet Count 224 K/uL (130-400); RDW Coefficient of Variation 13.9 % (11.5-14.5); RDW Standard Deviation 50.3 fL (36.4-46.3); Red Blood Count 4.36 M/uL (4.70-6.10); White Blood Count 10.29 K/ul (4.8-10.8)
[2023-12-22 06:32] LABS: BUN Creatinine Ratio 33.1 (10-20); Creatinine Clr Calc Pharmacy 29.8 ml/min; Est GFR (African American) 59.1 ml/min; Potassium 4.3 mmol/L (3.5-5.1)
[2023-12-22] MEDS: ROSUVASTATIN CALCIUM 20 MG TAB PO SCH (08:18)
[2023-12-22] MEDS: METOPROLOL SUCC 25MG EXT REL TAB PO SCH (08:19)
[2023-12-22] MEDS: ASPIRIN 81 MG ECTAB PO SCH (08:19)
[2023-12-22] MEDS: FAMOTIDINE 20 MG TAB PO SCH (08:19)
[2023-12-22] MEDS: GABAPENTIN 300 MG CAP PO SCH (08:19)
[2023-12-22] MEDS: CLOPIDOGREL BISULFATE 75 MG TAB PO SCH (08:19)
[2023-12-22] MEDS: PANTOprazole 40 MG TAB PO SCH (08:19)
[2023-12-22] MEDS: EMPAGLIFLOZIN 25 MG TAB PO SCH (08:20)
[2023-12-22] MEDS: FUROSEMIDE 40 MG/4 ML VIAL IV SCH (08:20)
[2023-12-22] MEDS: HEPARIN SOD 5,000 UNIT/0.5 ML VIAL SQ SCH (08:20)
[2023-12-22] MEDS: POTASSIUM CHLORIDE 10 MEQ TABCR PO SCH (08:20)
[2023-12-22] MEDS: lisinopril 2.5 MG TAB PO SCH (10:03)
--- NOTE | 2023-12-22 17:18 | Hospitalist Progress Note ---
Date of Service December 22, 2023 Assessment & Plan (1) Acute on chronic heart failure with reduced ejection fraction and diastolic dysfunction: Plan: Acute onset of SOB that woke him from sleep around 0100 on 12/20 -- Suspect secondary to PND and pleural effusions Last echo on 12/11/23 revealed LVEF at 15-20% with severe septum and inferior wall hypokinesis BNP elevated at 1118 on admission (most previously 1251 on 12/10/2023) Continue Lasix 40 mg IV BID17. Recommend holding if SBP<90 Urine output 0.34 mL/kg/hr on 12/22/23 Continue Jardiance K supplementation 10mEq p.o. daily Continuous pulse ox and supplemental oxygen as needed to maintain SpO2 >89% (2) Pleural effusion: Plan: Moderate bilateral pleural effusions on chest CTA Likely the main contributor to SOB Lasix (as above) (3) Pneumonia: Plan: Potential PNA; chest CTA revealed scattered groundglass opacities which may be compatible with multifocal pneumonia Procalcitonin normal at 0.05 on 12/22/2023 Blood cultures ordered, pending Will defer antibiotics at this time as no fever, leukocytosis, and normal procalcitonin (4) DM type 2 (diabetes mellitus, type 2): Plan: Last A1c at 7.1% on 12/05/2023 Glucose 237 on admission Dulaglutide held SSI; with target BSG range 110-140mg/dL, CF 50, carb ratio 15 T2DM diet BSG ACHS Adjust regimen as needed (5) Elevated troponin: Plan: Elevated troponin on arrival. This is likely secondary to demand ischemia, could also be residual elevated troponin from recent NSTEMI. Clinically, patient denied chest pain, chest pressure, or left shoulder/jaw pain/pressure on presentation. EKG as needed for chest pain Continuous telemetry monitoring (6) History of non-ST elevation myocardial infarction (NSTEMI): Plan: Initial history of NSTEMI 06/2020 Remote history of NSTEMI at [place] from 12/10/23 - 12/15/23 Continue DAPT Continue beta-adriane Continue statin (7) Emphysema of lung: Plan: Tobacco abuse; 0.5 PPD Consider adding on steroids, incentive telemetry, flutter valve, and DuoNebs (if wheezing develops) (8) Hypotension: Plan: BP low on arrival Monitor closely with Lasix use, and recommend holding if SBP<90 Plan CODE STATUS: DNR/DNI VTE PPX: Heparin 5000 units SQ q12h Admission and Anticipated Discharge Date Admission Date: December 21, 2023 Subjective Patient seen and evaluated at bedside. He reports that shortness of breath is improved compared to yesterday. He denies any difficulty breathing, shortness of breath, chest pain, urinary problems. He has no complaints at this time. Physical Exam Physical Exam: General: No acute distress, nondiaphoretic, well-developed, well-nourished. Skin: The skin was without rashes, erythema, edema, or bruising. Cardiac: Regular rate and rhythm without murmurs gallops or rubs. Pulm: Clear to auscultation bilaterally without wheezes, rales or rhonchi. No respiratory distress. 91% on 1 L NC. Abdominal: Positive bowel sounds x 4. Soft, nontender, without masses or o rganomegaly. No guarding or rebound tenderness. Neuro: A&O x3. No focal neurological deficits. Results & Data Results & Data Vital Signs (Past 12 Hours) Vital Signs Temp Pulse Pulse Resp BP BP Pulse Ox 12/22/23 15:28 36.6 C 72 18 95/57 L 91 12/22/23 15:07 78 12/22/23 12:31 110/67 12/22/23 11:27 85/54 L 12/22/23 11:24 36.4 C L 84 17 87/55 L 97 12/22/23 09:48 12/22/23 07:46 82 12/22/23 07:24 36.7 C 80 19 103/59 L 91 O2 Del Method O2 Flow Rate 12/22/23 15:28 Nasal Cannula 1 12/22/23 15:07 12/22/23 12:31 12/22/23 11:27 12/22/23 11:24 Room Air 12/22/23 09:48 Nasal Cannula 2 12/22/23 07:46 12/22/23 07:24 Nasal Cannula 1 Laboratory Results Reviewed CBC Reviewed CMP Diagnostic Findings Reviewed I's and O's PG Care Time/CCT Total # of Minutes Spent Total Time Spent with Patient: Total time spent is greater than 50% in coordination of care (as documented) at patient's floor/unit and/or counseling patient: Coding Level of Care Code 01346 SUB INP/OBS CARE MIN Diagnoses Acute on chronic heart failure with reduced ejection fraction and diastolic dysfunction I50.43 Pleural effusion J90 Pneumonia J18.9 Type 2 diabetes mellitus with diabetic neuropathy, with long-term current use of insulin E11.40; Z79.4 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: with oil heaterman use Diabetes mellitus complication status: with neurologic complications Diabetes mellitus complication detail: with unspecified neuropathy Elevated troponin R77.8 History of non-ST elevation myocardial infarction (NSTEMI) I25.2 Pulmonary emphysema, unspecified emphysema type J43.9 Emphysema type: unspecified Hypotension I95.9 (4) DM type 2 (diabetes mellitus, type 2) 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: with oil heaterman use Diabetes mellitus complication status: with neurologic complications Diabetes mellitus complication detail: with unspecified neuropathy Qualified Code(s): E11.40 - Type 2 diabetes mellitus with diabetic neuropathy, unspecified; 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
--- OUTSIDE RECORDS SUMMARY | 2023-12-22 18:11 | External Medical Summary | Summary of Care ---
Author Name Unknown Organization [facility] Address [address] [place] [address] Phone [phone] Care Team Providers Care Landing Support Specialist Name Role Phone Naty Ordaz Eda HESTER Primary Care Provider Reason for Visit * Reason Onset Date Comments Films 12/21/2023 Encounter Details Date Type Department Care Team (Late st Contact Info) Description 12/21/2023 Telephone Radiology Film File [address] [place] [address] Talib Everett MD [address], [place] [id number] Films Allergies No known active allergiesdocumented as of this encounter (statuses as of 12/21/2023) Medications Medication Sig Dispensed Refills Start Date [...] hours as needed for Pain. 30 Tab 11/19/2019 Active Magnesium Hydroxide 400 MG/5ML Oral Suspension Take 30 mL by mouth daily as needed for Constipation. Active Bisacodyl 10 MG Rectal Suppository Administer 10 mg into the rectum as needed. Active Fleet Enema 7-19 GM/118ML Rectal Enema Administer 1 Enema into the rectum daily as needed. Active Ascorbic Acid 500 MG Oral Tablet Take 500 Tablets by mouth 2 times a day with morning and evening meals. Active BD Pen Needle Short U/F 31G X 8 MM (Insulin Pen Needle)Indications: Type 2 diabetes mellitus with hemoglobin A1c goal of less than 7.0% ([facility]) using for insulins four times a day 400 Each 1 09/19/2020 Active Melatonin 3 MG Oral Tablet TAKE ONE TABLET BY MOUTH NIGHTLY AT BEDTIME 90 Tablet 3 05/04/2022 Active DULoxetine HCl 20 MG Oral Capsule Delayed Release Particles (Cymbalta) TAKE 1 CAPSULE BY MOUTH ONCE DAILY 90 Capsule 09/15/2022 Active Atorvastatin Calcium 80 MG Oral Tablet (Lipitor) TAKE 1 TABLET BY MOUTH AT BEDTIME 90 Tablet 09/15/2022 Active Furosemide 20 MG Oral Tablet (Lasix) TAKE 1 TABLET BY MOUTH ONCE DAILY NEEDED FOR FLUID RETENTION AND SWELLING 30 Tablet 11/23/2022 Active Clopidogrel Bisulfate 75 MG Oral [...] as of this encounter (statuses as of 12/21/2023) Active Problems Problem Noted Date Diagnosed Date [...] as of this encounter (statuses as of 12/21/2023) Resolved Problems Problem Noted Date Diagnosed Date [...] closure of skin 11/21/2017 02/19/2019 Atherosclerosis of tanana ar hien of left lower extremity with [...] as of this encounter (statuses as of 12/21/2023) Immunizations Name Administration Dates Next Due Pneumococcal [...] encounter Miscellaneous Notes * Telephone Encounter - Gena Stevens OSA - 12/21/2023 10:34 AM EDT Mariela ([facility]) requesting 07/24/19 Chest images be pushed to their system Brooks Authorization to Release on file. Images pushed to [facility] ([employer]) Life Image account Job ID: [id number] Associated report(s) not needed. documented in this encounter Plan of Treatment Health Maintenance Due Date Last Done Comments DISCUSS TOBACCO CESSATION (REFER TO SMARTSET #2828) 1955 Alpha-1 Antitrypsin 11/27/1971 CKD PHOS USE SMARTSET 41932 11/27/1971 O2 ASSESSMENT COMPLETED IN PAST YEAR FOR COPD 11/27/1971 Cologuard 1998 Colonoscopy 1998 Colorectal Cancer [...] Additional history exists CKD HGB USE SMARTSET 47016 12/15/202312/14, 07/14/2021, 06/12/2020, Additional history exists Depression Screening 12/15/2023 12/14/2022 DTaP,Tdap,and Td Vaccines (2 - Td or Tdap) 01/26/2024 01/25/2014, 07/18/2008 Influenza Vaccine (FLU shot) (Season Ended) 2024 05/20/2011 Lipid Panel 12/15/2027 12/14/2022, 06/18, 03/07/2019, Additional history exists AAA Screening Completed 04/03/2019, 04/18, 05/10/2017, Additional history exists Lung Cancer Screening Completed 07/24/2019 , 04/18/2019, 03/21/2019 Diabetic Foot Exam Discontinued 09/09/2020 [...] this encounter Medical Devices Implanted Type Area Supervisor Bindery Device Identifier Shelf Expiration Date Model / Serial / Lot Stent Complete Sc 5x40 - [id number] Implanted:Qty : 1 on 05/10/2017 by Talib Sheppard [place] [facility] [place]: Popliteal Artery [employer] : VASCULAR 07/22/2017 [id number] / / [id number] Patch Xenosure [id number] - [id number] Implanted:Qty : 1 on 09/06/2017 by Talib Sheppard MD [place] [facility] [place] Right: Carotid [employer] 03/14/2023 [id number] / / [id number] Graft Stent Viab [id number] - [id number] Implanted:Qty : 1 on 09/27/2017 by Talib Sheppard MD [place] [facility] [place] Left: Leg Upper [employer] 07/03/2020 [id number] / / Description:Left SFA Stent Innova [id number] - [id number] Implanted:Qty : 1 on 06/06/2018 by Andrew Mosqueda MD [place] [facility] [place] Right: SFA [employer] 03/21/2021 [id number] / / [id number] [facility] Cls Cadn Mynx6/7fr - [id number] Implanted:Qty : 1 on 06/06/2018 by Andrew Mosqueda MD at [place] [facility] [place] Right: SFA [employer] [id number] / / Stent Peripheral 7 Diam 150x80 - [id number] Implanted:Qty : 1 on 04/03/2019 by Talib Sheppard MD at [place] [facility] [place] Left: Iliac [employer] : VASCULAR [id number] 01/22/2022 [id number] -080-150 / / [id number] Stent Peripheral 7 Diam 150x80 - [id number] Implanted:Qty : 1 on 04/03/2019 by Talib Sheppard MD at [place] [facility] [place] Right: Iliac [employer] : VASCULAR [id number] 01/03/2022 [id number] -080-150 / / [id number] Stent Peripheral 6 [id number] - [id number] Implanted:Qty : 1 on 08/10/2019 by Talib Sheppard MD at [place] [facility] [place] Right: SFA [employer] : VASCULAR [id number] 03/22/2022 [id number] -150-150 / / [id number] documented as of this encounter Advance Directives * Full Code (Latest Code Status on File) Date Activated Date Inactivated Comments 06/01/2020 10:26 PM 06/09/2020 3:15 PM This orde r reflects the patients wishes and were consensually agreed upon. Question Answer Comments Discussion of Advance Direct mirta occurred with: Patient Does the patient have a Living Will? No Does the patient have Health Care Power of Ornamental Metal Erector Apprentice? Yes, in chart and reviewed as current * Full Code Date Activated Date Inactivated Comments 06/01/2020 9:28 PM 06/01/2020 10:26 PM This orde r reflects the patients wishes and were consensually agreed upon. Question Answer Comments Discussion of Advance Directives occurred with: Not Discussed Does the patient have a Living Will? No Does the patient have Health Care Power of Ornamental Metal Erector Apprentice? Yes, not currently available * Full Code Date Activated Date Inactivated Comments 02/29/2020 7:26 PM 03/06/2020 4:50 PM This order r eflects the patients wishes and were consensually agreed upon. * Full Code Date Activated Date Inactivated Comments 11/14/2019 2:42 PM 11/19/2019 7:19 PM This order re flects the patients wishes and were consensually agreed upon. * Full Code Date Activated Date Inactivated Comments 09/17/2019 5:33 PM 09/26/2019 2:23 PM Question Answer Comments Discussion of Advance Directives occurred with: Patient Healthcare Agents on File Name Relationship [facility] Sunil Paul Adult Child Power of Ornamental Metal Erector Apprentice Care Teams Landing Support Specialist Relationship Specialty Start Date End Date Naty Ordaz CRNP [address] [facility] [place] [address] PCP - General Nurse Practitioner 12/16/23 documented as of this encounter
--- NOTE | 2023-12-22 22:24 | Electrocardiogram Report ---
Test Reason : Blood Pressure : / mmHG Vent. Rate : 100 BPM Atrial Rate : 100 BPM P-R Int : 162 ms QRS Dur : 084 ms QT Int : 344 ms P-R-T Axes : 025 066 192 degrees QTc Int : 443 ms Normal sinus rhythm Anteroseptal infarct (cited on or before 29-JUN-2020) Abnormal ECG When compared with ECG of 11-DEC-2023 04:02, Premature ventricular complexes are no longer Present Questionable change in initial forces of Anterior leads Confirmed by Elmer Fairchild ([id number]) on 12/22/2023 10:23:38 PM Referred By: Naty Ordaz Confirmed By:Elmer Fairchild
[2023-12-23 06:31] LABS: Basophils # (auto) 0.15 K/uL (0.00-0.20); Basophils % (auto) 1.5 %; Eosinophils # (auto) 0.51 K/uL (0.00-0.50); Eosinophils % (auto) 5.1 %; Hemoglobin 14.3 g/dl (14.0-18.0); Immature Granulocytes # (auto) 0.05 K/uL (0.01-0.20); Immature Granulocytes % (auto) 0.5 %; Lymphocytes # (auto) 2.74 K/uL (1.20-3.40); Lymphocytes % (auto) 27.2 %; Mean Corpuscular Hemoglobin 32.7 pg (25.0-34.0); Mean Corpuscular Hgb Conc 33.3 g/dL (32.0-36.0); Mean Corpuscular Volume 98.4 fL (80.0-100.0); Mean Platelet Volume 10.4 fL (9.4-12.4); Monocytes # (auto) 0.86 K/uL (0.11-0.59); Monocytes % (auto) 8.5 %; Neutrophils # (auto) 5.75 K/uL (1.40-6.50); Neutrophils % (auto) 57.2 %; Platelet Count 247 K/uL (130-400); RDW Standard Deviation 51.1 fL (36.4-46.3); Red Blood Count 4.37 M/uL (4.70-6.10); White Blood Count 10.06 K/ul (4.8-10.8)
[2023-12-23 06:50] LABS: BUN Creatinine Ratio 24.9 (10-20); Calcium 9.7 mg/dl (8.6-10.3); Est GFR (African American) 38.8 ml/min; Est GFR (Non-African American) 33.4 ml/min; Potassium 3.8 mmol/L (3.5-5.1)
[2023-12-23 08:16] VITALS: BP 101/59; PULSE 70; RESP 20; TEMP 98.4; O2SAT 96
[2023-12-23] MEDS ORDERED: 0.2 MICRON FILTER SET 1 EACH IV ONE ×2 (10:05→10:29)
[2023-12-23] MEDS: MAGNESIUM SULFATE / D5W 1 GM/100 ML BAG IV ONE (10:23)
[2023-12-23] MEDS: AMIODARONE 360MG / 200ML D5W IV ONE (10:23)
[2023-12-23] MEDS: AMIODARONE 150MG / 100ML D5W IV ONE (10:24)
[2023-12-23] MEDS: AMIODARONE / D5W 150 MG/100 ML BAG IV STA (10:26)
--- NOTE | 2023-12-23 10:29 | XRay Report ---
SINGLE VIEW CHEST CLINICAL HISTORY: Congestive heart failure FINDINGS: An AP, portable, upright chest radiograph is compared to chest x-ray and chest CT dated 12/20. The heart is enlarged. There is pulmonary vascular congestion and interstitial edema. There ar e layering pleural effusions with dependent consolidation. No pneumothorax is seen. The skeletal stru ctures are osteopenic. The bony thorax is grossly intact. Degenerative change is noted in the shoulde rs and spine. Fusion hardware is seen at the thoracolumbar junction. IMPRESSION: 1. Cardiomegaly with evidence of congestive failure. This is similar to yesterday. 2. Layering pleural effusions with dependent consolidation. ACT 112: Negative or not required by law. Electronically signed by: Leif Ramires M.D. 12/23/2023 10:28 AM
[2023-12-23] MEDS ORDERED: AMIODARONE / D5W 360 MG/200 ML BAG IV ONE (10:30)
[2023-12-23] MEDS ORDERED: LIDOCAINE 2% 20 MG/ML 5 ML SYR IV ONE (10:43)
[2023-12-23 11:08] LABS: BUN Creatinine Ratio 26.1 (10-20); Calcium 9.4 mg/dl (8.6-10.3); Est GFR (Non-African American) 35.4 ml/min; Magnesium 2.4 mg/dl (1.7-2.4)
[2023-12-23 11:18] LABS: Troponin I High Sensitivity 162.3 pg/ml (0-20)
--- NOTE | 2023-12-23 11:20 | Death Pronouncement Note ---
Date of Service December 23, 2023 Pronouncement Note Admission Date December 21, 2023 Preliminary Cause of (1) Ventricular tachyarrhythmia: Additional Comments: Patient was having intermittent short runs of ventricular tachyarrhythmia and was asymptomatic around 09:05 on 12/23/2023. Around 09:25, patient was having more frequent runs of V tach and 1 g of magnesium was ordered. Notified by nurse Cathy Salvador to come to bedside. Upon entering the room, nursing reported patient had been in asystole for approximately 90 seconds. Then, patient spontaneously began breathing independently. Patient then woke up and was fully oriented, reporting that he was at [facility] and talking about his son and fiance. Dr. Craig came to the bedside at that time. Patient denied any cardiac or pulmonary symptoms at that time. He reported that prior to his episode of unconsciousness he "felt like the room was wavy, moving in and out." At that time, stat troponins, BMP, magnesium were ordered, as well as amiodarone bolus with drip and cardiology consult. Dr. Craig reached out to Dr. Fairchild personally. Nurse and myself stayed with the patient at bedside until the first bag of amiodarone was completed. I then left the room to call the fiance and son around 10:30. Around 10:40, nurse notified me that the patient's heart monitoring was showing torsades after the curtain cutter came to draw the stat labs. Angie sands was called. Upon entering the room at that time, patient was unresponsive with no palpable radial pulse. Dr. Craig and Dr. Fairchild came to bedside. Amiodarone drip infusion rate was increased and lidocaine was given. High flow oxygen via nonrebreather mask was placed. Dr. Easton called the patient's fiance and son to inform them on the events and likely fatal prognosis, as he was the patient's provider during his last admission and developed a rapport with the family. Patient remained unresponsive to all stimuli with unresponsive pupillary reflex. On cardiopulmonary exam, patient was found to be without detectable carotid pulses and without spontaneous heart tones or respirations. Time of was pronounced at 10:57 AM on 12/23/2023. I personally met with the patient's loved ones, including Naty MATHIAS, and right Katya explain the events of this morning and answered their questions. Hospital spare hand, Camden Hernandez, was at bedside with patient's loved ones. Family was encouraged to take as much time as needed with the patient. (2) Acute on chronic heart failure with reduced ejection fraction and diastolic dysfunction: Contributing Factors Patient had a complex medical history with severe inoperable multilevel CAD and systolic dysfunction. History of acute on chronic systolic heart failure. History of NSTEMI in May 2020, EF was 35% at that time. Previous EF was 35% in 2019. Patient had another NSTEMI on 12/10/2023 with EF at that time 15-2 0% secondary to ischemic cardiomyopathy. Patient presented to hospital on 12/21/2023 with acute onset of shortness of breath secondary to acute on chronic heart failure with reduced ejection fraction and diastolic dysfunction. Patient was noted to have pleural effusions on admission and was diuresed. Summary Additional Data Pronouncement Performed By: Attending Physician and Advanced Practice Provider ([email or web address]) Attending physician: David Craig MD Coding Level of Care Code 89383 INP/OBS DISCH >30 MIN Diagnoses Ventricular tachyarrhythmia I47.20 Acute on chronic heart failure with reduced ejection fraction and diastolic dysfunction I50.43
--- NOTE | 2023-12-23 22:30 | Electrocardiogram Report ---
Test Reason : Blood Pressure : / mmHG Vent. Rate : 092 BPM Atrial Rate : 092 BPM P-R Int : 166 ms QRS Dur : 108 ms QT Int : 356 ms P-R-T Axes : 027 068 205 degrees QTc Int : 440 ms Normal sinus rhythm Anteroseptal infarct (cited on or before 29-JUN-2020) Abnormal ECG When compared with ECG of 21-DEC-2023 16:38, No significant change Confirmed by Elmer Fairchild ([id number]) on 12/23/2023 10:30:15 PM Referred By: Naty Ordaz Confirmed By:Elmer Fairchild
[2023-12-24] MEDS ORDERED: ROSUVASTATIN CALCIUM 10 MG TAB PO SCH (09:00)
--- NOTE | 2023-12-24 11:06 | Electrocardiogram Report ---
Test Reason : Blood Pressure : / mmHG Vent. Rate : 079 BPM Atrial Rate : 079 BPM P-R Int : 196 ms QRS Dur : 120 ms QT Int : 420 ms P-R-T Axes : 024 073 196 degrees QTc Int : 481 ms Sinus rhythm with occasional Premature ventricular complexes Left ventricular hypertrophy with QRS widening Cannot rule out Septal infarct (cited on or before 29-JUN-2020) Abnormal ECG When compared with ECG of 21-DEC-2023 18:42, Premature ventricular complexes are now Present Confirmed by Ced Thomas ([id number]) on 12/24/2023 11:06:14 AM Referred By: Naty Ordaz Confirmed By:Neil Thomas
--- NOTE | 2023-12-24 11:09 | Electrocardiogram Report ---
Test Reason : Blood Pressure : / mmHG Vent. Rate : 223 BPM Atrial Rate : 138 BPM P-R Int : 000 ms QRS Dur : 162 ms QT Int : 182 ms P-R-T Axes : 076 236 000 degrees QTc Int : 350 ms SInus rhythm converting to ventricular fibrillation Confirmed by Ced Thomas ([id number]) on 12/24/2023 11:08:59 AM Referred By: Naty Ordaz Confirmed By:Neil Thomas
--- NOTE | 2023-12-24 11:10 | Electrocardiogram Report ---
Test Reason : Blood Pressure : / mmHG Vent. Rate : 080 BPM Atrial Rate : 080 BPM P-R Int : 180 ms QRS Dur : 122 ms QT Int : 418 ms P-R-T Axes : 029 072 190 degrees QTc Int : 482 ms Poor data quality, interpretation may be adversely affected Sinus rhythm with PVcs Left ventricular hypertrophy with QRS widening Abnormal ECG Confirmed by Ced Thomas ([id number]) on 12/24/2023 11:09:28 AM Referred By: Naty Ordaz Confirmed By:Neil Thomas
[2023-12-25] MEDS ORDERED: ROSUVASTATIN CALCIUM 10 MG TAB PO SCH (09:00)
== END 2023-12-23 13:41 | disposition expired ==
LOC: ED 16:22 → SUATTDRO 21:29 → 2S 21:29
DX: F17.210 Nicotine dependence, cigarettes, uncomplicated; I25.2 Old myocardial infarction; Z79.85 Long-term (current) use of injectable non-insulin antidiabetic drugs; E11.40 Type 2 diabetes mellitus with diabetic neuropathy, unspecified; I25.5 Ischemic cardiomyopathy; Z79.82 Long term (current) use of aspirin; I11.0 Hypertensive heart disease with heart failure; E11.51 Type 2 diabetes mellitus with diabetic peripheral angiopathy without gangrene; K21.9 Gastro-esophageal reflux disease without esophagitis; I25.10 Atherosclerotic heart disease of native coronary artery without angina pectoris; J43.9 Emphysema, unspecified; I21.4 Non-ST elevation (NSTEMI) myocardial infarction; Z89.612 Acquired absence of left leg above knee; Z95.5 Presence of coronary angioplasty implant and graft; Z79.02 Long term (current) use of antithrombotics/antiplatelets; I47.21 Torsades de pointes; I50.23 Acute on chronic systolic (congestive) heart failure; Z86.73 Personal history of transient ischemic attack (TIA), and cerebral infarction without residual deficits; Z66 Do not resuscitate; Z91.148 Patient's other noncompliance with medication regimen for other reason; J90 Pleural effusion, not elsewhere classified; I24.89 Other forms of acute ischemic heart disease; J18.9 Pneumonia, unspecified organism